=== PATIENT | male | born 1980 | race Two or more races ===

== ENCOUNTER 2016-04-02 00:51 | Inpatient (IN) | payer SELFPAY ==
[~2016-04-02] VITALS: Ht 167.6 cm; Wt 46.8 kg
[2016-04-02] VITALS (9 sets, daily range): BP systolic 85–101; BP diastolic 50–66; PULSE 84–106; RESP 12–16; TEMP 97–98.2; O2SAT 97–100
[2016-04-02] MEDS ORDERED: MORPHINE SULFATE 4 MG/ML INJ IV PRN (01:45)
[2016-04-02] MEDS ORDERED: SODIUM CHLOR 0.9% 1000 ML INJ 1,000 ML IV SCH (01:45)
[2016-04-02] MEDS: ONDANSETRON HCL 4 MG/2 ML VIAL IV PUSH PRN (02:38)
[2016-04-02] MEDS ORDERED: SODIUM CHLORID 0.9% 500 ML INJ 500 ML IV ONE (04:00)
[2016-04-02] MEDS ORDERED: IBUPROFEN 600 MG TAB PO PRN (08:15)
[2016-04-02] MEDS ORDERED: Post-op Orders (for Pharmacy) MISC XX ONE (08:15)
[2016-04-02] MEDS ORDERED: HYDROmorphone HCL PF 1 MG/ML VIAL IV PRN (08:15)
[2016-04-02] MEDS ORDERED: NALOXONE HCL 0.4 MG/ML AMP IV PRN (08:15)
[2016-04-02] MEDS ORDERED: ACETAMINOPHEN 325 MG TAB PO PRN (09:00)
[2016-04-02] MEDS ORDERED: diphenhydrAMINE HCL 50 MG/ML VIAL IV PRN (09:00)
[2016-04-02] MEDS ORDERED: PCA - TOTAL MG MORPHINE DELIVERED PER SHIFT SCH (09:00)
[2016-04-02] MEDS ORDERED: IBUPROFEN SUSP 100 MG/5 ML 120 ML BOTTLE PO PRN (09:00)
[2016-04-02] MEDS ORDERED: IBUPROFEN SUSP 100 MG/5 ML UDC PO PRN (09:02)
[2016-04-02] MEDS: SODIUM CHLORIDE 0.9% FLUSH 5 ML FLUSH IVF SCH ×2 (09:28→21:00)
[2016-04-02] MEDS: D5-NS + KCL 20 MEQ INJ 1,000 ML IV SCH ×2 (09:28→23:02)
[2016-04-02 10:30] LABS: HEMATOCRIT 29.4 % (39.0-51.0); HEMO FLAGS AUTO DIFF; MEAN CELL VOLUME 84.8 FL (80.0-100.0); MEAN CORPUSCULAR HEMOGLOBIN 29.5 PG (27.0-34.0); MEAN CORPUSCULAR HGB CONC 34.8 % (32.0-36.0); PLATELET COUNT 446 TH/MM3 (150-450); RED BLOOD COUNT 3.47 MIL/MM3 (4.50-5.90); RED CELL DISTRIBUTION WIDTH 14.3 % (11.6-17.2); WHITE BLOOD COUNT 39.2 TH/MM3 (4.0-11.0)
--- NOTE | 2016-04-02 10:30 | PD.CONS ---
[facility] By Reason for Consult medical management Primary Care Physician No Primary Care Physician Diagnoses: History of Present Illness patient is a 35 y/o mael with no significant past medical history who was admitted to the hospital because of facial mass. patient is czech-speaking . he says that he's had this right facial mass since 2015. he's complaining of moderate pain to the right face. no fever or chills. he's lost about thirteen pounds recently.he denies any other complaints. Review of Systems Constitutional: COMPLAINS OF: Weight loss, DENIES: Fever, Chills, Night Sweats Eyes: DENIES: Blurred vision, Diplopia, Vision loss, Double Vision Ears, nose, mouth, throat: DENIES: Tinnitus, Vertigo, Throat pain, Epistaxis Respiratory: DENIES: Apneas, Cough, Snoring, Wheezing, Hemoptysis, Sputum production, Shortness of breath Cardiovascular: DENIES: Chest pain, Palpitations, Syncope, Dyspnea on Exertion , PND, Lower Extremity Edema, Orthopnea, Claudication Gastrointestinal: DENIES: Abdominal pain, Black stools, Bloody stools, Constipation, Diarrhea, Nausea, Vomiting, Difficulty Swallowing, Anorexia Genitourinary: DENIES: Urinary frequency, Urgency, Hematuria, Dysuria Musculoskeletal: DENIES: Joint pain, Muscle aches, Stiffness, Joint Swelling Integumentary: DENIES: Rash Neurologic: DENIES: Abnormal gait, Headache, Localized weakness, Paresthesias, Seizures, Speech Problems, Tremor, Poor Balance Psychiatric: DENIES: Anxiety, Confusion, Mood changes, Depression, Hallucinations, Agitation, Suicidal Ideation, Homicidal Ideation, Delusions Other pain to the right face. Past Family Social History Allergies: Coded Allergies: No Known Allergies (Unverified , 04/02/16) Past Medical History not significant. Past Surgical History none reported. Reported Medications none reported. Active Ordered Medications Current Medications Sodium Chloride (NS 1000 ml Inj) 1,000 ml @ 75 mls/hr [id number] IV Last administered on 04/02/16 02:38; Start 04/02/16 at 01:45; Stop 04/02/16 at 08:25 ; Status DC Morphine Sulfate (Morphine Inj) 2 mg Q2H PRN IV BREAKTHROUGH PAIN Last administered on 04/02/16 02:38; Start 04/02/16 at 01:45 Ondansetron HCl 4 mg 4 mg Q6H PRN IV PUSH NAUSEA Last administered on 02:38; Start 04/02/16 at 01:45 Sodium Chloride 500 ml @ 0 mls/hr BOLUS ONCE IV Last administered on 04:00; Start 04/02/16 at 04:00; Stop 04/02/16 at 04:01; Status DC Potassium Chloride/Dextrose/ Sod Cl (D5-NS + KCl 20 Meq Inj) 1,000 ml @ 75 mls/ hr [id number] IV Last administered on 04/02/16 09:28; Start 04/02/16 at 09:00 IV Flush (NS Flush) 2 ml UNSCH PRN IVF FLUSH AFTER USING IV ACCESS; Start 04/02 at 08:15 IV Flush (NS Flush) 2 ml BID IVF Last administered on 04/02/16 09:28; Start at 09:00 Acetaminophen (Tylenol) 650 mg Q4H PRN PO PAIN SCALE 1 TO 10; Start 04/02/16 at 09:00; Stop 04/02/16 at 09:00; Status DC Ibuprofen (Motrin) 600 mg Q4H PRN PO PAIN SCALE 1 TO 5; Start 04/02/16 at 08:15 ; Stop 04/02/16 at 08:49; Status DC Hydromorphone HCl (Dilaudid Pf Inj) 0.5 mg Q2H PRN IV PAIN SCALE 6 TO 10; Start 04/02/16 at 08:15; Stop 04/02/16 at 08:49; Status DC Diphenhydramine HCl (Benadryl) 25 mg Q6H PRN PO ITCHING; Start 04/02/16 at 09: 00 Miscellaneous Information (Post-op Orders (for Pharmacy)) STAT ONCE XX ; Start 04/02/16 at 08:15; Stop 04/02/16 at 08:16; Status UNV Miscellaneous Information 1 ONCE ONCE XX ; Start 04/02/16 at 08:15; Stop at 08:16; Status UNV Enoxaparin Sodium (Lovenox Inj) 30 mg Q24H SQ ; Start 04/02/16 at 08:15; Status UNV Naloxone HCl (Narcan Inj) 0.4 mg UNSCH PRN IV RESPIRATORY RATE LESS THAN 10; Start 04/02/16 at 08:15; Stop 04/02/16 at 08:49; Status DC Diphenhydramine HCl (Benadryl Inj) 25 mg Q6H PRN IV ITCHING; Start 04/02/16 at 09:00; Stop 04/02/16 at 09:00; Status DC [employer] Dosage Infused (Pha) 1 Q8HR .XX ; Start 04/02/16 at 09:00; Stop 04/02/16 at 09:00; Status DC Acetaminophen/ Hydrocodone Bitart (Hycet 325-7.5 Mg Liq) 15 ml Q4H PRN PO PAIN SCALE 6-10; Start 04/02/16 at 09:00 Ibuprofen (Motrin Liq) 600 mg Q4H PRN PO PAIN SCALE 1-5; Start 04/02/16 at 09: 00; Stop 04/02/16 at 09:02; Status DC Ibuprofen (Motrin Liq) 600 mg Q4H PRN PO PAIN SCALE 1-5; Start 04/02/16 at 09: 02 Social History no smoking or drinking. Physical Exam Vital Signs Vital Signs Date Time Temp Pulse Resp B/P Pulse Ox O2 Delivery O2 Flow Rate FiO2 04/02/16 08:00 97.2 88 16 101/58 100 04/02/16 06:00 86 90/59 04/02/16 04:46 84 91/54 04/02/16 03:41 97.8 98 14 86/56 100 04/02/16 01:31 97.0 106 12 98/66 99 Physical Exam GENERAL: cachectic and ill looking-however in no acute distress HEAD:mass noted on the right face with tissue necrosis and discharge from the site EYES: Pupils equal round and reactive. Extraocular motions intact. No scleral icterus. No injection or drainage. ENT: Nose without bleeding, purulent drainage or septal hematoma. Throat without erythema, tonsillar hypertrophy or exudate. Uvula midline. Airway patent. NECK: Trachea midline. No JVD or lymphadenopathy. Supple, nontender, no meningeal signs. CARDIOVASCULAR: Regular rate and rhythm without murmurs, gallops, or rubs. RESPIRATORY: Clear to auscultation. Breath sounds equal bilaterally. No wheezes , rales, or rhonchi. GASTROINTESTINAL: Abdomen soft, non-tender, nondistended. No hepato-splenomegaly , or palpable masses. No guarding. MUSCULOSKELETAL: Extremities without clubbing, cyanosis, or edema. No joint tenderness, effusion, or edema noted. No calf tenderness. Negative Homans sign bilaterally. NEUROLOGICAL: Awake and alert. Cranial nerves II through XII intact. Motor and sensory grossly within normal limits. Five out of 5 muscle strength in all muscle groups. Normal speech. Assessment and Plan Assessment and Plan A/P -right facial mass continue with pain control- surgery following- CT of the neck and brain pending - plan for biopsy of the mass- PEG placement- radiation oncology consulted. -severe malnutrition- plan for PEG placement- will consult exercise rider. thank you for the consult. Discussed Condition With the patient and RN. Meredith Acosta MD Apr 02, 2016 10:30
[2016-04-02 10:50] LABS: BICARBONATE 23.1 MEQ/L (21.0-32.0); POTASSIUM 4.2 MEQ/L (3.5-5.1); TOTAL BILIRUBIN ADULT 0.6 MG/DL (0.2-1.0)
[2016-04-02 10:55] LABS: CALCIUM-PROTEIN CORRECTED 13.9 MG/DL (8.5-10.1)
[2016-04-02 11:10] LABS: EOSINOPHILS 2 % (0-4); POLYS (SEG NEUTROPHILS) 88 % (16-70); WBC DIFF SAMPLE 100
[2016-04-02 11:11] LABS: BANDS 4 % (0-6); MYELOCYTES 1 % (0-0); NEUTROPHIL # MANUAL DIFF 36.5 TH/MM3 (1.8-7.7); PLATELET ESTIMATE SMEAR NORMAL (NORMAL); PLATELET MORPHOLOGY NORMAL (NORMAL); SCAN/DIFF FINAL DIFF MANUAL
--- NOTE | 2016-04-02 13:04 | RADRPT ---
EXAM DATE/TIME: 04/02/2016 11:54 [facility] COMPARISON: No previous studies available for comparison. INDICATIONS : Right sided facial mass. RADIATION DOSE: 52.68 CTDIvol (mGy) MEDICAL HISTORY : None SURGICAL HISTORY : None. ENCOUNTER: Initial ACUITY: 1 day PAIN SCALE: 8/10 LOCATION: Right cranial TECHNIQUE: Multiple contiguous axial images were obtained of the head. Using automated exposure control and adj ustment of the mA and/or kV according to patient size, radiation dose was kept as low as reasonably a chievable to obtain optimal diagnostic quality images. FINDINGS: CEREBRUM: The ventricles are normal for age. No evidence of midline shift, mass lesion, hemorrhage or acute in farction. No extra-axial fluid collections are seen. POSTERIOR FOSSA: The cerebellum and brainstem are intact. The 4th ventricle is midline. The cerebellopontine angle i s unremarkable. EXTRACRANIAL: The visualized portion of the orbits is intact. However there is a large soft tissue mass with scatte red areas of calcifications along the right side of the face. This will be further evaluated on the C T soft tissue neck. SKULL: The calvaria is intact. No evidence of skull fracture. CONCLUSION: 1. Unremarkable CT scan of the brain 2. Large abnormal soft tissue mass with calcifications along the right side of the face. Niall Corrales MD on April 02, 2016 at 13:01 Board Certified Radiologist. This report was verified electronically.
--- NOTE | 2016-04-02 13:34 | RADRPT ---
EXAM DATE/TIME: 04/02/2016 11:54 [place] Corrected on: April 02, 2016; [facility] COMPARISON: No previous studies available for comparison. INDICATIONS : Right facial mass. RADIATION DOSE: 24.60 CTDIvol (mGy) MEDICAL HISTORY : None SURGICAL HISTORY : None. ENCOUNTER: Initial ACUITY: 1 day PAIN SCORE: 8/10 LOCATION: Right cranial TECHNIQUE: Volumetric scanning of the neck was performed. Using automated exposure control and adjustment of th e mA and/or kV according to patient size, radiation dose was kept as low as reasonably achievable to obtain optimal diagnostic quality images. The lack of IV contrast limits the diagnosis for certain or ness pathology. FINDINGS: There is a large right-sided abnormal soft tissue mass with some scattered amorphous calcifications n oted throughout the mass. The mass measures at least 14.3 x 5.9 x 7.5 cm. The mass extends along the right side of the face from the level of the zygomatic arch which remains grossly intact down to the lower neck on the right side. The mass is causing complete destruction involving the right mandible. The right maxilla appears to be grossly intact.. There is also subcutaneous air seen within the mass. This most likely related to the oral cavity. No definite loculated fluid collections are demonstrate d. The thyroid gland is unremarkable. The mass is causing pressure along the posterior lateral wall o f the right maxillary sinus. There is some chronic sinus disease in the right maxillary sinus. Howeve r the mass does not appear to have extended into the right maxillary sinus. It appears the mass exten ds into the region of the oral cavity with diffuse enlargement of the right tonsillar pillar. The mas s may be involving the floor the mouth. No involvement of the hyoid bone is demonstrated. No involvem ent of the thyroid cartilage is demonstrated. No definite cervical adenopathy is demonstrated. The ma ss appears to invade the right sternocleidomastoid muscle. CONCLUSION: Very large heterogeneous soft tissue mass along the right side of the face with gross destruction inv olving most of the right mandible. The mass contains amorphous calcifications and appears to involve the right sternocleidomastoid muscle. The mass appears to extend into the oral cavity with diffuse en largement of the right tonsillar pillar. Neoplastic disease in the primary consideration. Niall Corrales MD on April 02, 2016 at 13:24 Board Certified Radiologist. This report was verified electronically. Niall Corrales MD on April 02, 2016 at 13:37 Board Certified Radiologist. This report was verified electronically.
--- NOTE | 2016-04-02 13:37 | RADRPT ---
EXAM DATE/TIME: 04/02/2016 11:54 [facility] COMPARISON: CT SOFT TISSUE NECK W/O CONTRAST, April 02, 2016, 11:54. CT BRAIN W/O CONTRAST, April 02, 2016, 11:54. INDICATIONS : Right faical mass. ; Reconstructed from previous dataset MEDICAL HISTORY : None SURGICAL HISTORY : None. ENCOUNTER: Initial ACUITY: 1 day PAIN SCALE: 9/10 LOCATION: Right facial TECHNIQUE: 3D reconstructions of the face were performed. FINDINGS: As noted on the CT soft tissue neck there is a large soft tissue mass with amorphous calcifications c ausing complete destruction of most of the right mandible. The mass is overall appearance was fully d escribed on the CT soft tissue neck. CONCLUSION: 3-D reconstructive images demonstrating destruction involving most the right side of the mandible. Niall Corrales MD on April 02, 2016 at 13:33 Board Certified Radiologist. This report was verified electronically.
[2016-04-02] MEDS: ACETAMINOPHEN 325MG/HYDROcodone 7.5MG/15ML UDC PO PRN (23:07)
[2016-04-03] VITALS (7 sets, daily range): BP systolic 94–106; BP diastolic 57–68; PULSE 89–106; RESP 16–18; TEMP 96–98.3; O2SAT 97–100
[2016-04-03] MEDS: SODIUM CHLORID 0.9% 500 ML IV SCH ×2 (03:15→19:55)
--- NOTE | 2016-04-03 08:28 | MB ---
cc: BINH MERCADO D.D.S. DATE OF CONSULTATION 04/03/2016 DATE OF 1980 REASON FOR CONSULTATION I was asked to evaluate a 35-year-old gentleman who does not speak [place] from [facility] who has, according to the notes, no significant past medical history. He was admitted to the hospital because of a large facial mass. He says he has had it since June of 2015. The mass appears to be malignant due to its extensive destruction. It is coming through the skin; it is large, extending into the floor of the mouth as well. PHYSICAL EXAMINATION GENERAL: On evaluation of the patient, he is cachectic due to lack of nutrition. HEAD AND NECK: As far as his examination goes, for his head and neck itself, this mass extends from the right condylar neck region all the way down past the midline, over and extending down the neck into the areas past Zone in the neck and down towards the base, towards the clavicle. Intraorally hard to examine. The patient has dentition but his lower ones are involved in the mass. It extends into the floor of the mouth and the base of his tongue, extends past the posterior pharynx, hard to determine how far it goes. PLAN FOR THIS GENTLEMAN Obviously he has got some electrolyte imbalances as well which we are trying to get stabilized for him. He is severely dehydrated. His creatinine is extremely high. Calcium and some other things are off. He going to start to be managed today. The patient is planned to go to the OR by Dr. Oseguera today for placement of a G-tube for him. He is going to biopsy a piece of the mass here as well and try to determine a game plan. Dr. Beaulieu is going to possibly start him; he is going to require radiation therapy prior to anything due to the large size of this mass and then hopefully a surgical plan can be devised for removal of the remaining mass once he is able to shrink it down somewhat to make it amenable to resection. I will continue to follow this patient and help in the maintenance of his care. Thank you, Dr. Oseguera, for including me in his care. If there is anything else I can do, please let me know. SRI Pittman /7:17 AM /8:15 AM
--- NOTE | 2016-04-03 08:37 | HHI.PR ---
Subjective Remarks ill looking but in no distress. afebrile. pain to the right face is fairly controlled. d/w the RN and no acute issues over night. Objective Vitals Vital Signs Date Time Temp Pulse Resp B/P Pulse Ox O2 Delivery O2 Flow Rate FiO2 04/03/16 04:00 96.7 89 18 95/57 99 04/03/16 00:00 97.7 97 16 94/60 100 04/02/16 23:10 96 16 100/58 04/02/16 20:00 98.2 101 14 96/65 97 04/02/16 16:00 97.4 91 16 89/56 100 04/02/16 12:00 85/50 I/O 04/02/16 04/02/16 04/02/16 04/03/16 04/03/16 04/03/16 07:00 15:00 23:00 07:00 15:00 23:00 Intake Total 640 ml 480 ml 1655 ml 680 ml Output Total 400 ml Balance 640 ml 480 ml 1655 ml 280 ml Intake Oral 0 ml 480 ml 50 ml IV Total 640 ml 1655 ml 630 ml Output Urine Total 400 ml # Voids 0 1 1 # Bowel Movements 1 Result Diagram: 04/02/16 1006 04/02/16 1006 Imaging Last Impressions Neck CT 04/02/16 0000 Signed Impressions: Service Date/Time: Saturday, April 02, 2016 11:54 - CONCLUSION: Very large heterogeneous soft tissue mass along the right side of the face with gross destruction involving most of the right mandible. The mass contains amorphous calcifications and appears to involve the right sternocleidomastoid muscle. The mass appears to extend into the oral cavity with diffuse enlargement of the right tonsillar pillar. Neoplastic disease in the primary consideration. Niall Corrales MD Multiplanar Reconstruction 04/02/16 0000 Signed Impressions: Service Date/Time: Saturday, April 02, 2016 11:54 - CONCLUSION: 3-D reconstructive images demonstrating destruction involving most the right side of the mandible. Niall Corrales MD Head CT 04/02/16 0000 Signed Impressions: Service Date/Time: Saturday, April 02, 2016 11:54 - CONCLUSION: 1. Unremarkable CT scan of the brain 2. Large abnormal soft tissue mass with calcifications along the right side of the face. Niall Corrales MD A/P Assessment and Plan A/P - right facial mass CT of the face with very large heterogeneous soft tissue mass along the right side of the face with gross destruction involving most of the right mandible. The mass contains amorphous calcifications and appears to involve the right sternocleidomastoid muscle. The mass appears to extend into the oral cavity with diffuse enlargement of the right tonsillar pillar. Neoplastic disease in the primary consideration. continue with pain control- plan for biopsy of the mass today- radiation and medical oncology consulted. -renal insufficiency with unknown duration- continue IV fluid- monitor renal function and electrolytes- will consult nephrology. - hypercalcemia likely due to bone destruction due to the mass/ dehydration continue with IV fluid- will monitor the level closely -hyponatremia; continue IV fluid- will monitor -leukocytosis- no evidence of active infection at this time- afebrile- will monitor temps and check the CBC in am. -DVT prophylaxis- post-op per surgery d/w the patient, family,RN and . Meredith Acosta MD Apr 03, 2016 08:37
[2016-04-03] MEDS: SODIUM CHLORIDE 0.9% FLUSH 5 ML FLUSH IVF SCH ×2 (09:00→21:10)
[2016-04-03 09:37] LABS: AUTOMATED NEUTROPHIL # 26.8 TH/MM3 (1.8-7.7); BASOPHIL % 0.2 % (0.0-2.0); EOSINOPHIL # 0.3 TH/MM3 (0-0.4); EOSINOPHIL % 1.2 % (0.0-4.0); HEMO FLAGS DIFF FINAL; LYMPH % 2.8 % (9.0-44.0); LYMPHOCYTE # 0.8 TH/MM3 (1.0-4.8); MEAN CELL VOLUME 85.7 FL (80.0-100.0); MEAN CORPUSCULAR HEMOGLOBIN 29.8 PG (27.0-34.0); MEAN CORPUSCULAR HGB CONC 34.8 % (32.0-36.0); MONO % 4.8 % (0.0-8.0); PLATELET COUNT 399 TH/MM3 (150-450); RED BLOOD COUNT 2.66 MIL/MM3 (4.50-5.90); RED CELL DISTRIBUTION WIDTH 14.4 % (11.6-17.2); WHITE BLOOD COUNT 29.4 TH/MM3 (4.0-11.0)
[2016-04-03 09:46] LABS: HEMATOCRIT 22.8 % (39.0-51.0)
[2016-04-03 10:08] LABS: BICARBONATE 24.6 MEQ/L (21.0-32.0); POTASSIUM 3.3 MEQ/L (3.5-5.1)
[2016-04-03] MEDS ORDERED: LACTATED RINGER'S 1000 ML INJ 1,000 ML IV ONE (10:46)
[2016-04-03] MEDS ORDERED: PROPOFOL 200 MG/20 ML AMP IV ONE (10:46)
[2016-04-03] MEDS ORDERED: ONDANSETRON HCL 4 MG/2 ML VIAL IV PUSH ONE (10:46)
[2016-04-03] MEDS ORDERED: PHENYLEPH/NS 1000 MCG/10 ML SYR IV ONE (10:46)
--- NOTE | 2016-04-03 11:49 | HHI.PR ---
Subjective Subjective Notes no problems overnight except some mild oozing from mass. more awake and alert today. Objective Vitals/I&O Vital Signs Date Time Temp Pulse Resp B/P Pulse Ox O2 Delivery O2 Flow Rate FiO2 04/03/16 08:00 96.0 100 18 96/61 100 Labs Laboratory Tests Test 04/03/16 07:59 White Blood Count 29.4 Red Blood Count 2.66 Hemoglobin 7.9 Hematocrit 22.8 Mean Corpuscular Volume 85.7 Mean Corpuscular Hemoglobin 29.8 Mean Corpuscular Hemoglobin 34.8 Concent Red Cell Distribution Width 14.4 Platelet Count 399 Mean Platelet Volume 6.2 Neutrophils (%) (Auto) 91.0 Lymphocytes (%) (Auto) 2.8 Monocytes (%) (Auto) 4.8 Eosinophils (%) (Auto) 1.2 Basophils (%) (Auto) 0.2 Neutrophils # (Auto) 26.8 Lymphocytes # (Auto) 0.8 Monocytes # (Auto) 1.4 Eosinophils # (Auto) 0.3 Basophils # (Auto) 0.0 CBC Comment DIFF FINAL Differential Comment Sodium Level 131 Potassium Level 3.3 Chloride Level 97 Carbon Dioxide Level 24.6 Anion Gap 9 Blood Urea Nitrogen 53 Creatinine 2.53 Estimat Glomerular Filtration 29 Rate Random Glucose 87 Calcium Level 13.6 Protein Corrected Calcium Total Protein 6.0 Cardiovascular: Regular Lungs: Clear Abdomen: Non-distended, Non-tender A/P Assessment and Plan large facial malignancy, dehydration, malnutrition. to OR today for PEG, biopsy of mass, central line. DW Soni Nails Alvarez. Juan Oseguera MD Apr 03, 2016 11:49
[2016-04-03] MEDS: D5-NS + KCL 20 MEQ INJ 1,000 ML IV SCH ×2 (11:51→21:45)
[2016-04-03] MEDS ORDERED: HEPARIN SODIUM - IV 10,000 UNITS/10 ML VIAL ONE (13:46)
[2016-04-03] MEDS ORDERED: BUPIVACAINE/EPINEPHRINE 0.25% PF 10 ML VIAL ONE (13:46)
[2016-04-03] MEDS ORDERED: HEPARIN SODIUM - SQ 10,000 UNITS/ML VIAL ONE (13:46)
[2016-04-03] MEDS ORDERED: CHLORHEXIDINE GLUCONATE 0.12% 30 ML CUP ONE (13:46)
[2016-04-03] MEDS ORDERED: ceFAZolin INJ 1,000 MG VIAL IV ONE (14:43)
--- NOTE | 2016-04-03 15:27 | PD.PROCEDR ---
GI Procedure REFERRING PHYSICIAN Dr. 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 Mtz and informed consent was obtained. Anesthesia sedated him with Diprivan. He was placed in the left lateral decubitus position. EGD: The Pentax videoscope was introduced through the oropharynx and advanced to the second portion of the duodenum under direct visualization. Retroflexion was performed in the stomach. FINDINGS: The esophagus this was unremarkable and within normal limits The stomach this too appeared to be unremarkable and within normal limits Following the evaluation of the stomach and the duodenum the stomach was insufflated with air and the area of PEG placement was identified through indentation and transillumination the area was prepped and draped in usual fashion 5 cc of lidocaine were injected locally a small incision was made then an Angiocath was passed into the stomach through which a guidewire was passed this was retrieved with the scope into that a PEG tube was attached and pulled into place and thereafter secured in usual fashion The patient tolerated procedure well and there are no immediate complications The duodenum this was normal ESTIMATED BLOOD LOSS: None SPECIMENS REMOVED: None COMPLICATIONS: None IMPRESSION: Normal EGD Successful PEG placement PLAN: PLAN: 1. May use PEG tube for medications today 2. May start feeding tomorrow 3. May obtain nutritional consult for tube feeding 4. Flush tube with 50 cc of water every 4-6 hours 5. Always flush tube after feedings 6. Apply abdominal binder as necessary 7. Clamp G-tube after use and flush. Ambrocio Johnson MD Apr 03, 2016 15:27
--- NOTE | 2016-04-03 15:32 | PD.CONS ---
HPI History of Present Illness This is a 35 year old male who is admitted for evaluation and treatment of right facial mass the patient is Greenlandic-speaking and so there is a language barrier apparently he's had this mass since June 2015 and we are asked to evaluate for PEG placement. FORMERLY [facility] Past Medical History None Past Surgical History None Coded Allergies: No Known Allergies (Unverified , 04/02/16) Medications Current Medications Sodium Chloride (NS 1000 ml Inj) 1,000 ml @ 75 mls/hr [id number] IV Last administered on 04/02/16 02:38; Start 04/02/16 at 01:45; Stop 04/02/16 at 08:25 ; Status DC Morphine Sulfate (Morphine Inj) 2 mg Q2H PRN IV BREAKTHROUGH PAIN Last administered on 04/02/16 02:38; Start 04/02/16 at 01:45 Ondansetron HCl 4 mg 4 mg Q6H PRN IV PUSH NAUSEA Last administered on 02:38; Start 04/02/16 at 01:45 Sodium Chloride 500 ml @ 0 mls/hr BOLUS ONCE IV Last administered on 04:00; Start 04/02/16 at 04:00; Stop 04/02/16 at 04:01; Status DC Potassium Chloride/Dextrose/ Sod Cl (D5-NS + KCl 20 Meq Inj) 1,000 ml @ 75 mls/ hr [id number] IV Last administered on 04/03/16 11:51; Start 04/02/16 at 09:00 IV Flush (NS Flush) 2 ml UNSCH PRN IVF FLUSH AFTER USING IV ACCESS; Start 04/02 at 08:15 IV Flush (NS Flush) 2 ml BID IVF Last administered on 04/02/16 09:28; Start at 09:00 Acetaminophen (Tylenol) 650 mg Q4H PRN PO PAIN SCALE 1 TO 10; Start 04/02/16 at 09:00; Stop 04/02/16 at 09:00; Status DC Ibuprofen (Motrin) 600 mg Q4H PRN PO PAIN SCALE 1 TO 5; Start 04/02/16 at 08:15 ; Stop 04/02/16 at 08:49; Status DC Hydromorphone HCl (Dilaudid Pf Inj) 0.5 mg Q2H PRN IV PAIN SCALE 6 TO 10; Start 04/02/16 at 08:15; Stop 04/02/16 at 08:49; Status DC Diphenhydramine HCl (Benadryl) 25 mg Q6H PRN PO ITCHING; Start 04/02/16 at 09: 00 Miscellaneous Information (Post-op Orders (for Pharmacy)) STAT ONCE XX ; Start 04/02/16 at 08:15; Stop 04/03/16 at 06:06; Status DC Miscellaneous Information 1 ONCE ONCE XX ; Start 04/02/16 at 08:15; Stop at 06:06; Status DC Enoxaparin Sodium (Lovenox Inj) 30 mg Q24H SQ ; Start 04/02/16 at 08:15; Status UNV Naloxone HCl (Narcan Inj) 0.4 mg UNSCH PRN IV RESPIRATORY RATE LESS THAN 10; Start 04/02/16 at 08:15; Stop 04/02/16 at 08:49; Status DC Diphenhydramine HCl (Benadryl Inj) 25 mg Q6H PRN IV ITCHING; Start 04/02/16 at 09:00; Stop 04/02/16 at 09:00; Status DC HISTOTECHNOLOGIST Dosage Infused (Pha) 1 Q8HR .XX ; Start 04/02/16 at 09:00; Stop 04/02/16 at 09:00; Status DC Acetaminophen/ Hydrocodone Bitart (Hycet 325-7.5 Mg Liq) 15 ml Q4H PRN PO PAIN SCALE 6-10 Last administered on 04/02/16t 23:07; Start 04/02/16 at 09:00 Ibuprofen (Motrin Liq) 600 mg Q4H PRN PO PAIN SCALE 1-5; Start 04/02/16 at 09: 00; Stop 04/02/16 at 09:02; Status DC Ibuprofen 600 mg 600 mg Q4H PRN PO PAIN SCALE 1-5; Start 04/02/16 at 09:02 Sodium Chloride (NS 500 ml Inj) 500 ml @ 30 mls/hr [id number] IV ; Start 04/03/16 at 03:15; Stop 04/04/16 at 03:14 Bupivacaine HCl/ Epinephrine Bitart (Sensorcaine-Epinephrine Pf 0.25% Inj) 20 ml STK-MED ONCE .ROUTE ; Start 04/03/16 at 13:46; Stop 04/03/16 at 13:47; Status DC Chlorhexidine Gluconate (Peridex 0.12% Liq) 60 ml STK-MED ONCE .ROUTE ; Start at 13:46; Stop 04/03/16 at 13:47; Status DC Heparin Sodium (Porcine) (Heparin Inj) 10,000 units STK-MED ONCE .ROUTE ; Start 04/03/16 at 13:46; Stop 04/03/16 at 13:47; Status DC Heparin Sodium (Porcine) (Heparin Inj) 10,000 units STK-MED ONCE .ROUTE ; Start 04/03/16 at 13:46; Stop 04/03/16 at 13:47; Status DC Cefazolin Sodium (Ancef Inj) 1,000 mg STK-MED ONCE IV Last administered on 04/03t 14:43; Start 04/03/16 at 14:43; Stop 04/03/16 at 15:03; Status DC Family History Unavailable Social History Unavailable Review of Systems ROS Unable to obtain due to language barrier but apparently unremarkable GI Exam Vitals I&O Vital Signs Date Time Temp Pulse Resp B/P Pulse Ox O2 Delivery O2 Flow Rate FiO2 04/03/16 12:00 96.5 94 18 106/68 100 04/03/16 08:00 96.0 100 18 96/61 100 04/03/16 04:00 96.7 89 18 95/57 99 04/03/16 00:00 97.7 97 16 94/60 100 04/02/16 23:10 96 16 100/58 04/02/16 20:00 98.2 101 14 96/65 97 04/02/16 16:00 97.4 91 16 89/56 100 I/O 04/02/16 04/02/16 04/02/16 04/03/16 04/03/16 04/03/16 07:00 15:00 23:00 07:00 15:00 23:00 Intake Total 640 ml 480 ml 1655 ml 680 ml 0 ml Output Total 400 ml 750 ml Balance 640 ml 480 ml 1655 ml 280 ml -750 ml Intake Oral 0 ml 480 ml 50 ml 0 ml IV Total 640 ml 1655 ml 630 ml Output Urine Total 400 ml 750 ml # Voids 0 1 1 # Bowel Movements 1 Imaging Last Impressions Neck CT 04/02/16 0000 Signed Impressions: Service Date/Time: Saturday, April 02, 2016 11:54 - CONCLUSION: Very large heterogeneous soft tissue mass along the right side of the face with gross destruction involving most of the right mandible. The mass contains amorphous calcifications and appears to involve the right sternocleidomastoid muscle. The mass appears to extend into the oral cavity with diffuse enlargement of the right tonsillar pillar. Neoplastic disease in the primary consideration. Niall Corrales MD Multiplanar Reconstruction 04/02/16 0000 Signed Impressions: Service Date/Time: Saturday, April 02, 2016 11:54 - CONCLUSION: 3-D reconstructive images demonstrating destruction involving most the right side of the mandible. Niall Corrales MD Head CT 04/02/16 0000 Signed Impressions: Service Date/Time: Saturday, April 02, 2016 11:54 - CONCLUSION: 1. Unremarkable CT scan of the brain 2. Large abnormal soft tissue mass with calcifications along the right side of the face. Niall Corrales MD Laboratory Test 04/03/16 07:59 White Blood Count 29.4 TH/MM3 Red Blood Count 2.66 MIL/MM3 Hemoglobin 7.9 GM/DL Hematocrit 22.8 % Mean Corpuscular Volume 85.7 FL Mean Corpuscular Hemoglobin 29.8 PG Mean Corpuscular Hemoglobin 34.8 % Concent Red Cell Distribution Width 14.4 % Platelet Count 399 TH/MM3 Mean Platelet Volume 6.2 FL Neutrophils (%) (Auto) 91.0 % Lymphocytes (%) (Auto) 2.8 % Monocytes (%) (Auto) 4.8 % Eosinophils (%) (Auto) 1.2 % Basophils (%) (Auto) 0.2 % Neutrophils # (Auto) 26.8 TH/MM3 Lymphocytes # (Auto) 0.8 TH/MM3 Monocytes # (Auto) 1.4 TH/MM3 Eosinophils # (Auto) 0.3 TH/MM3 Basophils # (Auto) 0.0 TH/MM3 CBC Comment DIFF FINAL Differential Comment Sodium Level 131 MEQ/L Potassium Level 3.3 MEQ/L Chloride Level 97 MEQ/L Carbon Dioxide Level 24.6 MEQ/L Anion Gap 9 MEQ/L Blood Urea Nitrogen 53 MG/DL Creatinine 2.53 MG/DL Estimat Glomerular Filtration 29 ML/MIN Rate Random Glucose 87 MG/DL Calcium Level 13.6 MG/DL Protein Corrected Calcium MG/DL Total Protein 6.0 GM/DL Physical Examination HEENT: normocephalic; large right sided facial mass that is oozing blood and has a strange smell to it; no jaundice. Throat with poor dentition and oral mass noted. NECK: Neck is supple CHEST: Chest is clear to auscultation and percussion. CARDIAC: Regular rate and rhythm with no murmur gallop or rubs. ABDOMEN: Soft, nondistended, nontender; no hepatosplenomegaly; bowel sounds are present in all four quadrants. EXTREMITIES: No clubbing, cyanosis, or edema. Assessment and Plan Plan Right facial mass with extension into the oral cavity Failure to thrive We will proceed with PEG tube placement Other recommendations as per primary service and as per hospital course Ambrocio Johnson MD Apr 03, 2016 15:32
[2016-04-03] MEDS ORDERED: LIDOCAINE 2%/EPINEPHrine 1:100,000 30ML MDV ONE (15:35)
[2016-04-03] MEDS ORDERED: LIDOCAINE 1%/EPINEPHrine 1:100,000 SOLN 50 ML VIAL ONE (15:35)
[2016-04-03] MEDS ORDERED: MICROFIBRILLAR COLLAGEN HEMOSTAT 1 GM PKT ONE (15:41)
[2016-04-03] MEDS ORDERED: DO NOT ADM ANY ANTICOAGULANT DRUGS XX PRN (16:28)
[2016-04-03] MEDS ORDERED: fentaNYL CITRATE 250 MCG/5 ML AMP ONE (16:34)
--- NOTE | 2016-04-03 16:53 | PD.CONS ---
HPI Service Nephrology Consult Requested By Dr. Jovel Reason for Consult Acute renal failure and dehydration Primary Care Physician No Primary Care Physician History of Present Illness Patient is a 35-year-old male who has a big mass on the right side of the face involving the cheek and mandible he has destructive lesion and the underwent the PEG tube placement, biopsy showed squamous cell cancer and she is dehydrated, cachectic, patient does not speak any Latvian, I was told by Dr. Oseguera that he is from the [facility]. Review of Systems Constitutional: COMPLAINS OF: Fatigue, Weight loss Gastrointestinal: COMPLAINS OF: Anorexia Musculoskeletal: COMPLAINS OF: Joint pain, Muscle aches, Stiffness Past Family Social History Allergies: Coded Allergies: No Known Allergies (Unverified , 04/02/16) Past Medical History Facial mass Past Surgical History Nothing significant Active Ordered Medications Current Medications Medications (Trade) Dose Ordered Sig/Sara Route Start Time Stop Time Status Last Admin (Morphine Inj) 2 mg Q2H PRN IV 04/02/16 01:45 04/02/16 02:38 Ondansetron HCl 4 mg 4 mg Q6H PRN IV PUSH 04/02/16 01:45 04/02/16 02:38 (D5-NS + KCl 20 Meq Inj) 1,000 ml @ 75 mls/hr [id number] IV 04/02/16 09:00 04/03/16 11:51 (NS Flush) 2 ml UNSCH PRN IVF 04/02/16 08:15 (NS Flush) 2 ml BID IVF 04/02/16 09:00 04/02/16 09:28 (Benadryl) 25 mg Q6H PRN PO 04/02/16 09:00 (Lovenox Inj) 30 mg Q24H SQ 04/02/16 08:15 UNV (Hycet 325-7.5 Mg Liq) 15 ml Q4H PRN PO 04/02/16 09:00 04/02/16 23:07 Ibuprofen 600 mg 600 mg Q4H PRN PO 04/02/16 09:02 (NS 500 ml Inj) 500 ml @ 30 mls/hr [id number] IV 04/03/16 03:15 04/04/16 03:14 Family History Noncontributory Social History Nonsmoker nondrinker Physical Exam Vital Signs Vital Signs Date Time Temp Pulse Resp B/P Pulse Ox O2 Delivery O2 Flow Rate FiO2 04/03/16 12:00 96.5 94 18 106/68 100 04/03/16 08:00 96.0 100 18 96/61 100 04/03/16 04:00 96.7 89 18 95/57 99 04/03/16 00:00 97.7 97 16 94/60 100 04/02/16 23:10 96 16 100/58 04/02/16 20:00 98.2 101 14 96/65 97 Physical Exam GENERAL: Malnourished, well-developed patient. SKIN: Warm and dry. HEAD: Large mass occupying the right side of the face EYES: No scleral icterus. No injection or drainage. NECK: Supple, trachea midline. No JVD or lymphadenopathy. CARDIOVASCULAR: Regular rate and rhythm without murmurs, gallops, or rubs. RESPIRATORY: Breath sounds equal bilaterally. No accessory muscle use. GASTROINTESTINAL: Abdomen soft, non-tender, nondistended. PEG tube in place EXTREMITIES: No cyanosis, or edema. Loss of muscle mass NEUROLOGICAL: Awake, alert Laboratory Laboratory Tests Test 04/03/16 07:59 White Blood Count 29.4 Red Blood Count 2.66 Hemoglobin 7.9 Hematocrit 22.8 Mean Corpuscular Volume 85.7 Mean Corpuscular Hemoglobin 29.8 Mean Corpuscular Hemoglobin 34.8 Concent Red Cell Distribution Width 14.4 Platelet Count 399 Mean Platelet Volume 6.2 Neutrophils (%) (Auto) 91.0 Lymphocytes (%) (Auto) 2.8 Monocytes (%) (Auto) 4.8 Eosinophils (%) (Auto) 1.2 Basophils (%) (Auto) 0.2 Neutrophils # (Auto) 26.8 Lymphocytes # (Auto) 0.8 Monocytes # (Auto) 1.4 Eosinophils # (Auto) 0.3 Basophils # (Auto) 0.0 CBC Comment DIFF FINAL Differential Comment Sodium Level 131 Potassium Level 3.3 Chloride Level 97 Carbon Dioxide Level 24.6 Anion Gap 9 Blood Urea Nitrogen 53 Creatinine 2.53 Estimat Glomerular Filtration 29 Rate Random Glucose 87 Calcium Level 13.6 Protein Corrected Calcium Total Protein 6.0 Result Diagram: 04/03/16 0759 04/03/16 0759 Imaging Last Impressions Neck CT 04/02/16 0000 Signed Impressions: Service Date/Time: Saturday, April 02, 2016 11:54 - CONCLUSION: Very large heterogeneous soft tissue mass along the right side of the face with gross destruction involving most of the right mandible. The mass contains amorphous calcifications and appears to involve the right sternocleidomastoid muscle. The mass appears to extend into the oral cavity with diffuse enlargement of the right tonsillar pillar. Neoplastic disease in the primary consideration. Niall Corrales MD Multiplanar Reconstruction 04/02/16 0000 Signed Impressions: Service Date/Time: Saturday, April 02, 2016 11:54 - CONCLUSION: 3-D reconstructive images demonstrating destruction involving most the right side of the mandible. Niall Corrales MD Head CT 04/02/16 0000 Signed Impressions: Service Date/Time: Saturday, April 02, 2016 11:54 - CONCLUSION: 1. Unremarkable CT scan of the brain 2. Large abnormal soft tissue mass with calcifications along the right side of the face. 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
--- NOTE | 2016-04-03 17:09 | RADRPT ---
EXAM DATE/TIME: 04/03/2016 16:42 [place] COMPARISON: No previous studies available for comparison. INDICATIONS : Evaluate central line placement. MEDICAL HISTORY : None. SURGICAL HISTORY : None. ENCOUNTER: Initial ACUITY: 1 day PAIN SCORE: Non-responsive. LOCATION: Bilateral chest FINDINGS: A single view of the chest demonstrates the lungs to be symmetrically aerated without evidence of mas s, infiltrate or effusion. The cardiomediastinal contours are unremarkable. Osseous structures are intact. There is placement of left subclavian venous catheter terminating in the superior vena cava w ithout complication no pneumothorax. CONCLUSION: Left subclavian venous catheter positioned in the superior vena cava with no pneumothorax Yaakov Montaño MD on April 03, 2016 at 17:07 Board Certified Radiologist. This report was verified electronically.
[2016-04-03] MEDS ORDERED: *morphine SULFATE 8 MG/ML PERIprocedure ONLY ONE (17:22)
--- NOTE | 2016-04-03 19:54 | MH ---
cc: HAYDEN WOODS M.D. DATE OF ADMISSION 04/02/2016 CHIEF COMPLAINT Large oropharyngeal cancer. HISTORY OF THE PRESENT ILLNESS Mr. Mtz is a pleasant 35-year-old [facility] male who apparently developed a mass on the right side of his face back in June 2014. Unfortunately patient is unable to provide any history and the entire history was obtained from the patient's brother who is at the bedside and is Portuguese-speaking only. The history and physical was conducted through the prop attendant service on the computer. As stated his brother states that it began in June of 2014. It has progressed. He was initially seen in [facility] and the family was told there was nothing they could do. The patient has been at home, cared for by his family. The mass has grown progressively bigger. He has been unable to eat secondary to pain and inability to open his jaw completely. He has been drinking only. I was contacted about caring for the patient. I accepted the patient and he was brought here by private vehicle from [facility]. On arrival the patient was lethargic, very sleepy, difficult to arouse. Per the brother the patient has not been doing well for about the last two months. The brother is uncertain of the diagnosis but paper work provided by the patient's family via email demonstrated this to be a possible squamous cell carcinoma. PAST MEDICAL HISTORY None. PAST SURGICAL HISTORY None. MEDICATIONS None. ALLERGIES None. FAMILY HISTORY Noncontributory. SOCIAL HISTORY The patient lives in [facility]. He has never smoked cigarettes. He has never drank alcohol according to his brother. He does not do any drugs. REVIEW OF SYSTEMS Unobtainable. PHYSICAL EXAMINATION VITAL SIGNS: Temperature is 97, pulse is 100, blood pressure is 98/60, respiratory 20. GENERAL: This is a very thin, emaciated young male lying in bed sleeping. HEENT: Pupils are reactive to light. He has a gigantic right-sided tumor on the side of face going down into the neck. His trachea appears to be slightly deviated the left. Tumor was necrotic and smells quite bad. He has poor dentition. He has no palpable adenopathy that I can appreciate in his neck. LUNGS: Clear to auscultation bilaterally. HEART: S1-S2. No murmur. ABDOMEN: Soft and nontender. EXTREMITIES: No gross deformity x4. LABORATORY DATA White blood count is 39, hemoglobin 10, platelet count is 446. Electrolytes remarkable for a sodium of 126 and creatinine of 3.6. GFR of 19, a calcium of 13.4, protein corrected 13.9. Alkaline phosphatase is 121. Albumin 2.4. Prealbumin is 10. IMAGING CT is pending at this time. IMPRESSION Large right oropharyngeal cancer. PLAN At this point the patient is going to be admitted for further workup and evaluation. I have consulted Dr. Shahzad [facility] who has agreed to help care for the patient. I have also consulted Dr. Beaulieu of radiation oncology who has agreed to help and care for the patient. We will ask [facility] to assist with medical management and I have already discussed it with the [facility] doctors. I actually have already discussed it with Dr. Elias. We will place a central line and start the patient on TPN. We will also get a Peg tube and start him on enteral feeds. Dr. Beaulieu has planned radiation therapy later this week. Obviously the patient is extremely high risk due to his overall debilitated state. This was discussed with the family via prop attendant. MD RAMBO Massey/JENNY /3:54 PM /7:31 PM
[2016-04-03 20:51] LABS: AUTOMATED NEUTROPHIL # 25.4 TH/MM3 (1.8-7.7); BASOPHIL # 0.1 TH/MM3 (0-0.2); BASOPHIL % 0.3 % (0.0-2.0); EOSINOPHIL # 0.2 TH/MM3 (0-0.4); EOSINOPHIL % 0.7 % (0.0-4.0); LYMPH % 4.8 % (9.0-44.0); LYMPHOCYTE # 1.4 TH/MM3 (1.0-4.8); MEAN CELL VOLUME 86.3 FL (80.0-100.0); MEAN CORPUSCULAR HEMOGLOBIN 30.3 PG (27.0-34.0); MEAN CORPUSCULAR HGB CONC 35.1 % (32.0-36.0); MONO % 4.6 % (0.0-8.0); NEUT % 89.6 % (16.0-70.0); PLATELET COUNT 343 TH/MM3 (150-450); RED BLOOD COUNT 2.29 MIL/MM3 (4.50-5.90); RED CELL DISTRIBUTION WIDTH 14.4 % (11.6-17.2); WHITE BLOOD COUNT 28.3 TH/MM3 (4.0-11.0)
[2016-04-03 20:54] LABS: HEMO FLAGS DIFF FINAL
[2016-04-03 20:57] LABS: HEMATOCRIT 19.7 % (39.0-51.0)
[2016-04-03 21:01] LABS: INTERNATIONAL NORMALIZED RATIO 1.4 RATIO; PROTHROMBIN TIME - PATIENT 16.1 SEC (9.8-11.6)
[2016-04-03 21:10] LABS: BICARBONATE 25.8 MEQ/L (21.0-32.0); MAGNESIUM 1.4 MG/DL (1.5-2.5); POTASSIUM 3.2 MEQ/L (3.5-5.1); TOTAL BILIRUBIN ADULT 0.3 MG/DL (0.2-1.0)
[2016-04-03] MEDS ORDERED: MAGNESIUM SULFATE 1 GM PREMIX 100 ML IV SCH (21:45)
[2016-04-03] MEDS: SODIUM CHLORIDE 23.4% INJ 11 MEQ, SODIUM ACETATE INJ 59 MEQ, POTASSIUM CHLORIDE INJ 40 ... IV-CENTRAL SCH ×7 (22:06)
[2016-04-03] MEDS: FAT EMULSION 20% INJ 250 ML (@10 mls/hr) IV-CENTRAL SCH (22:06)
[2016-04-03] MEDS: POTASSIUM CHLOR 20 MEQ PREMIX 100 ML IV SCH (22:15)
[2016-04-03] MEDS: ACETAMINOPHEN 325MG/HYDROcodone 7.5MG/15ML UDC PO PRN (23:31)
[2016-04-04] VITALS (10 sets, daily range): BP systolic 92–106; BP diastolic 55–67; PULSE 76–100; RESP 15–20; TEMP 96–97.6; O2SAT 92–100
[2016-04-04] MEDS: D5-NS + KCL 20 MEQ INJ 1,000 ML IV SCH (00:30)
[2016-04-04] MEDS: POTASSIUM CHLOR 20 MEQ PREMIX 100 ML IV SCH (01:52)
[2016-04-04] MEDS: SODIUM CHLORIDE 0.9% FLUSH 5 ML FLUSH IVF PRN (02:03)
--- NOTE | 2016-04-04 08:05 | HHI.PR ---
Subjective Remarks POD 1 s/p biopsy mass right face/extraction of mandibular teeth pt seen and examined. AAOx3, NAD family/nurse at bedside Objective Vital Signs Date Time Temp Pulse Resp B/P Pulse Ox O2 Delivery O2 Flow Rate FiO2 04/04/16 05:48 97.0 84 15 98/61 100 04/04/16 03:31 97.0 92 15 99/56 100 04/04/16 03:08 96.7 90 16 92/55 100 04/04/16 02:55 91 04/04/16 01:55 97.3 94 16 92/56 99 04/03/16 23:09 96.3 106 16 104/57 97 04/03/16 22:31 98.3 102 16 99/61 04/03/16 20:00 97.1 95 16 99/62 98 04/03/16 18:00 78 18 104/60 99 Nasal Cannula 3 04/03/16 17:45 79 18 104/67 100 Nasal Cannula 3 04/03/16 17:30 83 18 104/69 100 Nasal Cannula 3 04/03/16 17:15 83 18 112/77 100 Nasal Cannula 3 04/03/16 17:00 98 18 108/78 100 Nasal Cannula 3 04/03/16 16:45 84 18 104/69 98 Nasal Cannula 3 04/03/16 16:27 97.4 86 18 99/74 100 Nasal Cannula 3 Manual Cuff/Palpation 04/03/16 12:00 96.5 94 18 106/68 100 I/O 04/03/16 04/03/16 04/03/16 04/04/16 04/04/16 04/04/16 07:00 15:00 23:00 07:00 15:00 23:00 Intake Total 680 ml 750 ml 2380 ml 1161 ml Output Total 400 ml 750 ml 200 ml Balance 280 ml 0 ml 2180 ml 1161 ml Intake Oral 50 ml 0 ml 0 ml IV Total 630 ml 750 ml 580 ml 475 ml Lipid 76 ml Packed Cells 610 ml Other 1800 ml Output Urine Total 400 ml 750 ml 0 ml Estimated Blood Loss 200 ml # Voids 1 1 1 # Bowel Movements 0 Result Diagram: 04/03/162024 Objective Remarks dressing removed, wound/mass hemostatic right face intraorally, extraction sites stable trach midline Assessment and Plan Assessment and Plan mass right face/mandible region s/p extraction of teeth/biopsy yesterday s/p peg tube/central line yesterday invasive squamous cell carcinoma placed new wet/dry /cling dressing labs noted, orders for transfusion noted will follow Joseph Macias DMD Apr 04, 2016 08:05
[2016-04-04 08:28] LABS: AUTOMATED NEUTROPHIL # 26.6 TH/MM3 (1.8-7.7); BASOPHIL % 0.1 % (0.0-2.0); EOSINOPHIL # 0.2 TH/MM3 (0-0.4); EOSINOPHIL % 0.8 % (0.0-4.0); HEMATOCRIT 25.9 % (39.0-51.0); HEMO FLAGS DIFF FINAL; LYMPH % 3.5 % (9.0-44.0); MEAN CELL VOLUME 87.1 FL (80.0-100.0); MEAN CORPUSCULAR HEMOGLOBIN 30.8 PG (27.0-34.0); MEAN CORPUSCULAR HGB CONC 35.4 % (32.0-36.0); MONO % 3.7 % (0.0-8.0); NEUT % 91.9 % (16.0-70.0); PLATELET COUNT 279 TH/MM3 (150-450); RED BLOOD COUNT 2.97 MIL/MM3 (4.50-5.90); RED CELL DISTRIBUTION WIDTH 14.3 % (11.6-17.2)
[2016-04-04] MEDS: FREE WATER G-TUBE SCH ×4 (08:45→23:38)
[2016-04-04] MEDS: SODIUM CHLORIDE 0.9% FLUSH 5 ML FLUSH IVF SCH ×2 (09:00→21:00)
[2016-04-04 09:33] LABS: BICARBONATE 25.2 MEQ/L (21.0-32.0)
[2016-04-04] MEDS ORDERED: POTASSIUM CL 40 MEQ/30 ML LIQ UDC PEG ONE (10:45)
--- NOTE | 2016-04-04 10:46 | HHI.PR ---
Subjective Remarks in no acute distress. pain to the right face is fairly controlled. no fever. d/w the RN and no acute issues over night. Objective Vitals Vital Signs Date Time Temp Pulse Resp B/P Pulse Ox O2 Delivery O2 Flow Rate FiO2 04/04/16 07:00 97.6 89 19 99/64 99 04/04/16 05:48 97.0 84 15 98/61 100 04/04/16 03:31 97.0 92 15 99/56 100 04/04/16 03:08 96.7 90 16 92/55 100 04/04/16 02:55 91 04/04/16 01:55 97.3 94 16 92/56 99 04/03/16 23:09 96.3 106 16 104/57 97 04/03/16 22:31 98.3 102 16 99/61 04/03/16 20:00 97.1 95 16 99/62 98 04/03/16 18:00 78 18 104/60 99 Nasal Cannula 3 04/03/16 17:45 79 18 104/67 100 Nasal Cannula 3 04/03/16 17:30 83 18 104/69 100 Nasal Cannula 3 04/03/16 17:15 83 18 112/77 100 Nasal Cannula 3 04/03/16 17:00 98 18 108/78 100 Nasal Cannula 3 04/03/16 16:45 84 18 104/69 98 Nasal Cannula 3 04/03/16 16:27 97.4 86 18 99/74 100 Nasal Cannula 3 Manual Cuff/Palpation 04/03/16 12:00 96.5 94 18 106/68 100 I/O 04/03/16 04/03/16 04/03/16 04/04/16 04/04/16 04/04/16 07:00 15:00 23:00 07:00 15:00 23:00 Intake Total 680 ml 750 ml 2380 ml 1161 ml Output Total 400 ml 750 ml 200 ml Balance 280 ml 0 ml 2180 ml 1161 ml Intake Oral 50 ml 0 ml 0 ml IV Total 630 ml 750 ml 580 ml 475 ml Lipid 76 ml Packed Cells 610 ml Other 1800 ml Output Urine Total 400 ml 750 ml 0 ml Estimated Blood Loss 200 ml # Voids 1 1 1 # Bowel Movements 0 Result Diagram: 04/04/16 0700 04/04/16 0700 Imaging Last Impressions Chest X-Ray 04/03/16 0000 Signed Impressions: Service Date/Time: Sunday, April 03, 2016 16:42 - CONCLUSION: Left subclavian venous catheter positioned in the superior vena cava with no pneumothorax Yaakov Montaño MD Neck CT 04/02/16 0000 Signed Impressions: Service Date/Time: Saturday, April 02, 2016 11:54 - CONCLUSION: Very large heterogeneous soft tissue mass along the right side of the face with gross destruction involving most of the right mandible. The mass contains amorphous calcifications and appears to involve the right sternocleidomastoid muscle. The mass appears to extend into the oral cavity with diffuse enlargement of the right tonsillar pillar. Neoplastic disease in the primary consideration. Niall Corrales MD Multiplanar Reconstruction 04/02/16 0000 Signed Impressions: Service Date/Time: Saturday, April 02, 2016 11:54 - CONCLUSION: 3-D reconstructive images demonstrating destruction involving most the right side of the mandible. Niall Corrales MD Head CT 04/02/16 0000 Signed Impressions: Service Date/Time: Saturday, April 02, 2016 11:54 - CONCLUSION: 1. Unremarkable CT scan of the brain 2. Large abnormal soft tissue mass with calcifications along the right side of the face. Niall Corrales MD Objective Remarks GENERAL: ill looking but in no acute distress HEENT; swollen right face- covered with clean dressing. CARDIOVASCULAR: Regular rate and regular rhythm without murmurs, gallops, or rubs. RESPIRATORY: Clear to auscultation. Breath sounds equal bilaterally. No wheezes , rales, or rhonchi. GASTROINTESTINAL: Abdomen soft, non-tender, nondistended. Normal, active bowel sounds MUSCULOSKELETAL: Extremities without clubbing, cyanosis, or edema. NEURO: Alert & Oriented x4 to person, place, time, situation. Moves all ext x4 Procedures central line placement PEG placement bone biopsy teeth extraction Medications and IVs Current Medications Sodium Chloride (NS 1000 ml Inj) 1,000 ml @ 75 mls/hr [id number] IV Last administered on 04/02/16 02:38; Start 04/02/16 at 01:45; Stop 04/02/16 at 08:25 ; Status DC Morphine Sulfate (Morphine Inj) 2 mg Q2H PRN IV BREAKTHROUGH PAIN Last administered on 04/02/16 02:38; Start 04/02/16 at 01:45 Ondansetron HCl 4 mg 4 mg Q6H PRN IV PUSH NAUSEA Last administered on 02:38; Start 04/02/16 at 01:45 Sodium Chloride 500 ml @ 0 mls/hr BOLUS ONCE IV Last administered on 04:00; Start 04/02/16 at 04:00; Stop 04/02/16 at 04:01; Status DC Potassium Chloride/Dextrose/ Sod Cl (D5-NS + KCl 20 Meq Inj) 1,000 ml @ 125 mls /hr Q8H IV Last administered on 04/03/16 11:51; Start 04/02/16 at 09:00; Stop 04/04/16 at 08:51; Status DC IV Flush (NS Flush) 2 ml UNSCH PRN IVF FLUSH AFTER USING IV ACCESS Last administered on 04/04/16 02:03; Start 04/02/16 at 08:15 IV Flush (NS Flush) 2 ml BID IVF Last administered on 04/03/16 21:10; Start at 09:00 Acetaminophen (Tylenol) 650 mg Q4H PRN PO PAIN SCALE 1 TO 10; Start 04/02/16 at 09:00; Stop 04/02/16 at 09:00; Status DC Ibuprofen (Motrin) 600 mg Q4H PRN PO PAIN SCALE 1 TO 5; Start 04/02/16 at 08:15 ; Stop 04/02/16 at 08:49; Status DC Hydromorphone HCl (Dilaudid Pf Inj) 0.5 mg Q2H PRN IV PAIN SCALE 6 TO 10; Start 04/02/16 at 08:15; Stop 04/02/16 at 08:49; Status DC Diphenhydramine HCl (Benadryl) 25 mg Q6H PRN PO ITCHING; Start 04/02/16 at 09: 00 Miscellaneous Information (Post-op Orders (for Pharmacy)) STAT ONCE XX ; Start 04/02/16 at 08:15; Stop 04/03/16 at 06:06; Status DC Miscellaneous Information 1 ONCE ONCE XX ; Start 04/02/16 at 08:15; Stop at 06:06; Status DC Enoxaparin Sodium (Lovenox Inj) 30 mg Q24H SQ ; Start 04/04/16 at 15:30 Naloxone HCl (Narcan Inj) 0.4 mg UNSCH PRN IV RESPIRATORY RATE LESS THAN 10; Start 04/02/16 at 08:15; Stop 04/02/16 at 08:49; Status DC Diphenhydramine HCl (Benadryl Inj) 25 mg Q6H PRN IV ITCHING; Start 04/02/16 at 09:00; Stop 04/02/16 at 09:00; Status DC STAFFING OPERATIONS MANAGER Dosage Infused (Pha) 1 Q8HR .XX ; Start 04/02/16 at 09:00; Stop 04/02/16 at 09:00; Status DC Acetaminophen/ Hydrocodone Bitart (Hycet 325-7.5 Mg Liq) 15 ml Q4H PRN PO PAIN SCALE 6-10 Last administered on 04/03/16t 23:31; Start 04/02/16 at 09:00 Ibuprofen (Motrin Liq) 600 mg Q4H PRN PO PAIN SCALE 1-5; Start 04/02/16 at 09: 00; Stop 04/02/16 at 09:02; Status DC Ibuprofen 600 mg 600 mg Q4H PRN PO PAIN SCALE 1-5; Start 04/02/16 at 09:02 Sodium Chloride (NS 500 ml Inj) 500 ml @ 30 mls/hr [id number] IV ; Start 04/03/16 at 03:15; Stop 04/04/16 at 03:14; Status DC Bupivacaine HCl/ Epinephrine Bitart (Sensorcaine-Epinephrine Pf 0.25% Inj) 20 ml STK-MED ONCE .ROUTE ; Start 04/03/16 at 13:46; Stop 04/03/16 at 13:47; Status DC Chlorhexidine Gluconate (Peridex 0.12% Liq) 60 ml STK-MED ONCE .ROUTE ; Start at 13:46; Stop 04/03/16 at 13:47; Status DC Heparin Sodium (Porcine) (Heparin Inj) 10,000 units STK-MED ONCE .ROUTE ; Start 04/03/16 at 13:46; Stop 04/03/16 at 13:47; Status DC Heparin Sodium (Porcine) (Heparin Inj) 10,000 units STK-MED ONCE .ROUTE ; Start 04/03/16 at 13:46; Stop 04/03/16 at 13:47; Status DC Cefazolin Sodium (Ancef Inj) 1,000 mg STK-MED ONCE IV Last administered on 04/03 14:43; Start 04/03/16 at 14:43; Stop 04/03/16 at 15:03; Status DC Lidocaine/ Epinephrine (Xylocaine-Epi 1%-1:100,000 Inj) 50 ml STK-MED ONCE .ROUTE ; Start 04/03/16 at 15:35; Stop 04/03/16 at 15:36; Status DC Lidocaine/ Epinephrine (Xylocaine-Epi 2%-1:100,000 Inj) 30 ml STK-MED ONCE .ROUTE Last administered on 04/03/16 16:01; Start 04/03/16 at 15:35; Stop at 15:36; Status DC Microfibriller Collagen Hemostat (Avitene Powder Pack) 1 gm STK-MED ONCE .ROUTE ; Start 04/03/16 at 15:41; Stop 04/03/16 at 15:42; Status DC Fentanyl Citrate 250 mcg 250 mcg STK-MED ONCE .ROUTE ; Start 04/03/16 at 16:34; Stop 04/03/16 at 16:35; Status DC Sodium Chloride 11 meq/Sodium Acetate 59 meq/ Potassium Chloride 40 meq/ Magnesium Chloride 10 meq/ Multivitamins 10 ml/Folic Acid 1 mg/Amino Acids/ Dextrose 2,067.5261 ml @ 83 mls/hr Q24H IV-CENTRAL Last administered on 22:06; Start 04/03/16 at 20:00 Fat Emulsion Intravenous (Liposyn Iii 20% Inj) 250 ml @ 10 mls/hr Q24H IV- CENTRAL Last administered on 04/03/16 22:06; Start 04/03/16 at 20:00 Morphine Sulfate (*morphine INJ PERIprocedure ONLY) 8 mg STK-MED ONCE .ROUTE Last administered on 04/03/16 17:22; Start 04/03/16 at 17:22; Stop 04/03/16 at 17:23; Status DC Miscellaneous Information ALL NURSING DEPARTME... UNSCH PRN XX SEE LABEL COMMENTS; Start 04/03/16 at 16:28; Stop 04/04/16 at 16:27 Potassium Chloride 100 ml @ 50 mls/hr Q2H IV Last administered on 04/04/16t 01 :52; Start 04/03/16 at 21:45; Stop 04/04/16 at 01:44; Status DC Magnesium Sulfate/ Dextrose (Magnesium Sulfate 1 Gm Premix) 100 ml @ 100 mls/ hr Q1H IV Last administered on 04/04/16t 00:16; Start 04/03/16 at 21:45; Stop 04/03/16 at 23:44; Status DC Water (Free Water) VOLUME: 200 ML Q6HR G-TUBE ; Start 04/04/16 at 08:45 A/P Assessment and Plan A/P - right facial mass - CT of the face with very large heterogeneous soft tissue mass along the right side of the face with gross destruction involving most of the right mandible. The mass contains amorphous calcifications and appears to involve the right sternocleidomastoid muscle. The mass appears to extend into the oral cavity with diffuse enlargement of the right tonsillar pillar. Neoplastic disease in the primary consideration. s/p bone biopsy- follow the pathology- radiation oncology consulted. continue with pain control. surgery following. -acute kidney injury/ hypercalcemia / hyponatremia due to dehydration- improving after hydration - will monitor -anemia- s/p PRBC transfusion- H/H improved- will monitor -hypokalemia; will replace and monitor -leukocytosis- no evidence of active infection at this time- afebrile- will monitor temps and check the CBC in am. -severe malnutrition- s/p PEG placement- will start tube feeding- freight adjuster consulted. -DVT prophylaxis- Meredith Acosta MD Apr 04, 2016 10:46 Meredith Acosta MD Apr 04, 2016 10:46
--- NOTE | 2016-04-04 12:27 | HHI.PR ---
Subjective Subjective Notes Resting in bed Complains of pain 2/10 Family at bedside Objective Vitals/I&O Vital Signs Date Time Temp Pulse Resp B/P Pulse Ox O2 Delivery O2 Flow Rate FiO2 04/04/16 07:25 76 04/04/16 07:00 97.6 19 99/64 99 04/03/16 18:00 Nasal Cannula 3 Labs Laboratory Tests Test 04/03/16 04/03/16 04/03/16 04/03/16 20:25 20:30 20:45 21:38 White Blood Count 28.3 Red Blood Count 2.29 Hemoglobin 6.9 Hematocrit 19.7 Mean Corpuscular Volume 86.3 Mean Corpuscular Hemoglobin 30.3 Mean Corpuscular Hemoglobin 35.1 Concent Red Cell Distribution Width 14.4 Platelet Count 343 Mean Platelet Volume 5.9 Neutrophils (%) (Auto) 89.6 Lymphocytes (%) (Auto) 4.8 Monocytes (%) (Auto) 4.6 Eosinophils (%) (Auto) 0.7 Basophils (%) (Auto) 0.3 Neutrophils # (Auto) 25.4 Lymphocytes # (Auto) 1.4 Monocytes # (Auto) 1.3 Eosinophils # (Auto) 0.2 Basophils # (Auto) 0.1 CBC Comment DIFF FINAL Differential Comment Prothrombin Time 16.1 Prothromb Time International 1.4 Ratio Sodium Level 137 Potassium Level 3.2 Chloride Level 102 Carbon Dioxide Level 25.8 Anion Gap 9 Blood Urea Nitrogen 41 Creatinine 2.11 Estimat Glomerular Filtration 36 Rate Random Glucose 102 Calcium Level 12.9 Protein Corrected Calcium Phosphorus Level 3.9 Magnesium Level 1.4 Total Bilirubin 0.3 Aspartate Amino Transf 17 (AST/SGOT) Alanine Aminotransferase 8 (ALT/SGPT) Alkaline Phosphatase 111 Total Protein 5.3 Albumin 1.6 Triglycerides Level 154 Blood Type O POSITIVE O POSITIVE Antibody Screen NEGATIVE Blood Bank Comment Crossmatch Leukocyte-Reduced Red Blood Cells Test 04/04/16 04/04/16 04:15 07:00 Sodium Level 137 Potassium Level 3.0 Chloride Level 103 Carbon Dioxide Level 25.2 Anion Gap 9 Blood Urea Nitrogen 35 Creatinine 1.77 Estimat Glomerular Filtration 44 Rate Random Glucose 143 Calcium Level 11.5 White Blood Count 29.0 Red Blood Count 2.97 Hemoglobin 9.1 Hematocrit 25.9 Mean Corpuscular Volume 87.1 Mean Corpuscular Hemoglobin 30.8 Mean Corpuscular Hemoglobin 35.4 Concent Red Cell Distribution Width 14.3 Platelet Count 279 Mean Platelet Volume 6.1 Neutrophils (%) (Auto) 91.9 Lymphocytes (%) (Auto) 3.5 Monocytes (%) (Auto) 3.7 Eosinophils (%) (Auto) 0.8 Basophils (%) (Auto) 0.1 Neutrophils # (Auto) 26.6 Lymphocytes # (Auto) 1.0 Monocytes # (Auto) 1.1 Eosinophils # (Auto) 0.2 Basophils # (Auto) 0.0 CBC Comment DIFF FINAL Differential Comment Cardiovascular: Regular Lungs: Clear Abdomen: Other (PEG in place ) Narrative Exam Face: large RIGHT sided facial malignancy A/P Assessment and Plan 35 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 Lezama -Family updated at bedside I ATTEST AND CERTIFY THAT I PERSONALLY WENT IN THE PATIENT'S ROOM AND EXAMINED THEM. I REVIEWED THE EMR WITH THE OPTOMETRIC TECH AND ADVISED HER ON THE CARE PLAN. SHE DOCUMENTED THE VISIT AND ENTERED THE ORDERS IN THE EMR UNDER MY DIRECTION. Brittnee Meraz MD, FACS Apr 04, 2016 12:26 Juan Oseguera MD Apr 05, 2016 11:46
--- NOTE | 2016-04-04 13:58 | HHI.NPPN ---
Subjective Renal Failure: Acute Review of Systems General Constitutional: Fatigue Objective Data Data 04/03/16 04/04/16 19:00 07:00 Intake Total 2550 ml 1741 ml Output Total 950 ml Balance 1600 ml 1741 ml Intake Oral 0 ml 0 ml IV Total 750 ml 1055 ml Lipid 76 ml Packed Cells 610 ml Other 1800 ml Output Urine Total 750 ml Estimated Blood Loss 200 ml # Voids 2 # Bowel Movements 0 Vital Signs Date Time Temp Pulse Resp B/P Pulse Ox O2 Delivery O2 Flow Rate FiO2 04/04/16 12:00 96.0 93 18 100/60 92 04/04/16 07:25 76 04/04/16 07:00 97.6 89 19 99/64 99 04/04/16 05:48 97.0 84 15 98/61 100 04/04/16 03:31 97.0 92 15 99/56 100 04/04/16 03:08 96.7 90 16 92/55 100 04/04/16 02:55 91 04/04/16 01:55 97.3 94 16 92/56 99 04/03/16 23:09 96.3 106 16 104/57 97 04/03/16 22:31 98.3 102 16 99/61 04/03/16 20:00 97.1 95 16 99/62 98 04/03/16 18:00 78 18 104/60 99 Nasal Cannula 3 04/03/16 17:45 79 18 104/67 100 Nasal Cannula 3 04/03/16 17:30 83 18 104/69 100 Nasal Cannula 3 04/03/16 17:15 83 18 112/77 100 Nasal Cannula 3 04/03/16 17:00 98 18 108/78 100 Nasal Cannula 3 04/03/16 16:45 84 18 104/69 98 Nasal Cannula 3 04/03/16 16:27 97.4 86 18 99/74 100 Nasal Cannula 3 Manual Cuff/Palpation -: 04/04/16 0700 04/04/16 0700 Physical Exam General Appearance: Pale Throat Throat Remarks mass rt cheek Neck Neck Exam: Masses Pulmonary Resp Exam: Clear Bilaterally Cardiology CV Exam: Regular Gastrointestinal/Abdomen GI Exam: Soft Extremeties Extremities Exam: No Edema Assessment/Plan Problem List: (1) Acute renal failure Plan: Nonspecific and likely due to dehydration he has marked improvement K replaced nothing to add from Renal pont of view continue to hydrate I will sign off (2) Hypercalcemia Plan: improved (3) Dehydration Plan: on feedings (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
[2016-04-04] MEDS: ENOXAPARIN SODIUM 30 MG/0.3 ML SYRINGE SQ SCH (15:00)
--- NOTE | 2016-04-04 18:31 | HHI.GIFU ---
Subjective Remarks Comfortable in bed tolerating tube feeding complains of some pain at PEG site Objective Vitals I&O Vital Signs Date Time Temp Pulse Resp B/P Pulse Ox O2 Delivery O2 Flow Rate FiO2 04/04/16 16:00 96.6 94 20 100/66 99 04/04/16 12:00 96.0 93 18 100/60 92 04/04/16 07:25 76 04/04/16 07:00 97.6 89 19 99/64 99 04/04/16 05:48 97.0 84 15 98/61 100 04/04/16 03:31 97.0 92 15 99/56 100 04/04/16 03:08 96.7 90 16 92/55 100 04/04/16 02:55 91 04/04/16 01:55 97.3 94 16 92/56 99 04/03/16 23:09 96.3 106 16 104/57 97 04/03/16 22:31 98.3 102 16 99/61 04/03/16 20:00 97.1 95 16 99/62 98 I/O 04/03/16 04/03/16 04/03/16 04/04/16 04/04/16 04/04/16 07:00 15:00 23:00 07:00 15:00 23:00 Intake Total 680 ml 750 ml 2380 ml 1161 ml 0 ml Output Total 400 ml 750 ml 200 ml Balance 280 ml 0 ml 2180 ml 1161 ml 0 ml Intake Oral 50 ml 0 ml 0 ml 0 ml IV Total 630 ml 750 ml 580 ml 475 ml Lipid 76 ml Packed Cells 610 ml Other 1800 ml Output Urine Total 400 ml 750 ml 0 ml Estimated Blood Loss 200 ml # Voids 1 1 1 0 # Bowel Movements 0 Laboratory Laboratory Tests Test 04/03/16 04/03/16 04/03/16 04/03/16 20:25 20:30 20:45 21:38 White Blood Count 28.3 Red Blood Count 2.29 Hemoglobin 6.9 Hematocrit 19.7 Mean Corpuscular Volume 86.3 Mean Corpuscular Hemoglobin 30.3 Mean Corpuscular Hemoglobin 35.1 Concent Red Cell Distribution Width 14.4 Platelet Count 343 Mean Platelet Volume 5.9 Neutrophils (%) (Auto) 89.6 Lymphocytes (%) (Auto) 4.8 Monocytes (%) (Auto) 4.6 Eosinophils (%) (Auto) 0.7 Basophils (%) (Auto) 0.3 Neutrophils # (Auto) 25.4 Lymphocytes # (Auto) 1.4 Monocytes # (Auto) 1.3 Eosinophils # (Auto) 0.2 Basophils # (Auto) 0.1 CBC Comment DIFF FINAL Differential Comment Prothrombin Time 16.1 Prothromb Time International 1.4 Ratio Sodium Level 137 Potassium Level 3.2 Chloride Level 102 Carbon Dioxide Level 25.8 Anion Gap 9 Blood Urea Nitrogen 41 Creatinine 2.11 Estimat Glomerular Filtration 36 Rate Random Glucose 102 Calcium Level 12.9 Protein Corrected Calcium Phosphorus Level 3.9 Magnesium Level 1.4 Total Bilirubin 0.3 Aspartate Amino Transf 17 (AST/SGOT) Alanine Aminotransferase 8 (ALT/SGPT) Alkaline Phosphatase 111 Total Protein 5.3 Albumin 1.6 Triglycerides Level 154 Blood Type O POSITIVE O POSITIVE Antibody Screen NEGATIVE Blood Bank Comment Crossmatch Leukocyte-Reduced Red Blood Cells Test 04/04/16 04/04/16 04:15 07:00 Sodium Level 137 Potassium Level 3.0 Chloride Level 103 Carbon Dioxide Level 25.2 Anion Gap 9 Blood Urea Nitrogen 35 Creatinine 1.77 Estimat Glomerular Filtration 44 Rate Random Glucose 143 Calcium Level 11.5 White Blood Count 29.0 Red Blood Count 2.97 Hemoglobin 9.1 Hematocrit 25.9 Mean Corpuscular Volume 87.1 Mean Corpuscular Hemoglobin 30.8 Mean Corpuscular Hemoglobin 35.4 Concent Red Cell Distribution Width 14.3 Platelet Count 279 Mean Platelet Volume 6.1 Neutrophils (%) (Auto) 91.9 Lymphocytes (%) (Auto) 3.5 Monocytes (%) (Auto) 3.7 Eosinophils (%) (Auto) 0.8 Basophils (%) (Auto) 0.1 Neutrophils # (Auto) 26.6 Lymphocytes # (Auto) 1.0 Monocytes # (Auto) 1.1 Eosinophils # (Auto) 0.2 Basophils # (Auto) 0.0 CBC Comment DIFF FINAL Differential Comment Physical Exam CHEST: Chest is clear to auscultation and percussion. CARDIAC: Regular rate and rhythm with no murmur gallop or rubs. ABDOMEN: Soft, nondistended, PEG site clean some tenderness no rebound or guarding; no hepatosplenomegaly; bowel sounds are present in all four quadrants. EXTREMITIES: No clubbing, cyanosis, or edema. Assessment and Plan Plan Right facial mass with extension into the oral cavity Failure to thrive PEG tube in place tolerating tube feeds GI will sign off Ambrocio Johnson MD Apr 04, 2016 18:30
--- NOTE | 2016-04-04 21:47 | MB ---
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 PATIENT PROFILE: The patient speaks Dutch. His brother is in the room as well as his uncle. There is a tremendous language barrier. I briefly spoke to his neice. I also spoke to the radiation oncologist, Dr. Beaulieu, who speaks Dutch. The patient is single. He has two children. He is from [facility]. 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 There is no significant tobacco and alcohol history. HISTORY OF PRESENT ILLNESS: The patient told the radiation oncologist that about 6 or 12 months ago he had extraction of a tooth that did not heal. He subsequently developed an enlarging mass in this area. He was found to have a squamous cell carcinoma in the area of the right jaw. At some point he was treated with 5-FU, Taxotere and cisplatin. Apparently the doses were relatively small. He did not do well. He was told to go home and that nothing further could be done. He was not able to eat. He could barely drink. The patient was brought from [facility] to the [facility] and is now hospitalized at [place]. 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 On 04/02/2016, he had a CT scan of the neck which shows a large right-sided abnormal soft tissue mass measuring 14.3 x 5.9 x 7.5 cm. This mass extends along the right side of the face from the level of the zygomatic arch down to the lower neck on the right side. There is complete destruction involving the right mandible. There is subcutaneous air within the mass. The mass is causing pressure along the posterior lateral wall of the right maxillary sinus. The mass extends into the region of the oral cavity with diffuse enlargement of the right tonsillar pillar. The mass may involve the floor of the mouth. The presentation is consistent with malignancy. Head CT scan on 04/02/2016 is unremarkable except for the large abnormal soft tissue mass of calcifications along the right side of the face which is better described on the CT of the neck. Chest single AP, 04/03/2016, shows a left subclavian catheter terminating the superior vena cava. There is no mention of metastatic disease. The patient has been transfused two units of packed cells. Current hemoglobin 9, white count 29,000, platelet count 279,000. Creatinine is 1.7, BUN 44, calcium 11.5, previously as high as 13.6. This occurs with an albumin of 1.6. PAST SURGICAL HISTORY: 1. The patient had placement of a gastrostomy tube in the past 24 hours. 2. Biopsy of right facial mass. PAST MEDICAL HISTORY: No medical problems that I am aware of. ALLERGIES: No allergies that I am aware of. MEDICATIONS: No routine medicines prior to hospitalization. He is currently receivin. Lovenox 24 hours. 2. TPN. 3. Ibuprofen. FAMILY HISTORY: Unknown. REVIEW OF SYSTEMS: He cannot speak. He cannot open his mouth. His head is tilted forward. NECK: His neck has a bandage and he has severe muscle wasting. PHYSICAL EXAMINATION: He appears chronically ill. He can barely open his mouth VITAL SIGNS: Blood pressure is 100/60, respiratory rate 20, pulse 94, afebrile. O2 sat is 99%. HEAD: Unremarkable. Sclera unremarkable. I did not remove the bandage as I anticipate there would be bleeding from the huge tumor mass in the right neck. In looking at a picture before the bandage was place there is a huge exophytic mass occupying the right side of the face from slightly below the ear extending anteriorly towards the lips and posteriorly involving the neck. I can feel adenopathy in the submental region, and I believe extending into the left neck but I am not sure. 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 In 30 years of practice, I have never seen a squamous cell cancer as locally advanced as this gentleman has. The likelihood of cure is remote. He has been seen by surgery and it is evident that he cannot undergo surgery unless there were to be a significant reduction in the volume of tumor. PLAN: 1. He is hypercalcemic from the squamous cell cancer. I am going to give him Aredia, although the calcium is not very high. The albumin is low and therefore the protein corrected calcium would be higher than the current calcium of 11.5. 2. He has renal failure. It is improving and I suspect it will continue to improve with IV fluids. 3. I have spoken to Dr. Beaulieu(radiation oncology). Dr. Beaulieu would like me to treat with a radiation condenser operator. I am not sure he will be a candidate for cisplatin and I will probably choose a different radiation condenser operator, such as weekly carboplatin and Taxol, or one could use cetuximab. At the moment his renal function will not allow me to use cisplatin and I want him to avoid any emesis as he would be at risk of aspiration 4: Once renal function has improved I will order a CT scan of the Chest and Abdomen to evaluate for metastatic disease I am going to order an HIV test as this is an unusually aggressive tumor and is reminiscent of what one might see with an HIV positive squamous cell cancer. MD ADIN Sanchez/KAILEY /9:00 PM /9:25 PM WILY
[2016-04-04] MEDS ORDERED: PAMIDRONATE INJ 90 MG in SODIUM CHLOR 0.9% 1000 ML INJ 1,000 ML IV ONE (22:00)
[2016-04-04] MEDS: SODIUM CHLORIDE 23.4% INJ 11 MEQ, SODIUM ACETATE INJ 59 MEQ, POTASSIUM CHLORIDE INJ 40 ... IV-CENTRAL SCH ×7 (23:38)
[2016-04-04] MEDS: FAT EMULSION 20% INJ 250 ML (@10 mls/hr) IV-CENTRAL SCH (23:38)
[2016-04-05] VITALS: BP 103/70; PULSE 107; RESP 18; TEMP 96.7; O2SAT 100
[2016-04-05] MEDS: ACETAMINOPHEN 325MG/HYDROcodone 7.5MG/15ML UDC PO PRN ×3 (00:03→23:08)
[2016-04-05 04:00] VITALS: BP 100/68; PULSE 105; RESP 18; TEMP 98; O2SAT 98
[2016-04-05] MEDS: FREE WATER G-TUBE SCH ×3 (06:00→18:00)
--- NOTE | 2016-04-05 08:02 | HHI.PR ---
Subjective Remarks resting comfortably with no distress. pain is fairly controlled. no new complaints over night. spoke to the family through ultrasound spec service. Objective Vitals Vital Signs Date Time Temp Pulse Resp B/P Pulse Ox O2 Delivery O2 Flow Rate FiO2 04/05/16 04:00 98.0 105 18 100/68 98 04/05/16 00:00 96.7 107 18 103/70 100 04/04/16 20:00 96.0 100 18 106/67 100 04/04/16 16:00 96.6 94 20 100/66 99 04/04/16 12:00 96.0 93 18 100/60 92 I/O 04/04/16 04/04/16 04/04/16 04/05/16 04/05/16 04/05/16 07:00 15:00 23:00 07:00 15:00 23:00 Intake Total 1161 ml 755 ml Output Total 500 ml Balance 1161 ml 755 ml -500 ml Intake Oral 0 ml 0 ml IV Total 475 ml 755 ml Lipid 76 ml Packed Cells 610 ml Output Urine Total 500 ml # Voids 1 0 2 1 # Bowel Movements 0 Result Diagram: 04/04/16 0700 04/04/16 0700 Imaging Last Impressions Chest X-Ray 04/03/16 0000 Signed Impressions: Service Date/Time: Sunday, April 03, 2016 16:42 - CONCLUSION: Left subclavian venous catheter positioned in the superior vena cava with no pneumothorax Yaakov Montaño MD Neck CT 04/02/16 0000 Signed Impressions: Service Date/Time: Saturday, April 02, 2016 11:54 - CONCLUSION: Very large heterogeneous soft tissue mass along the right side of the face with gross destruction involving most of the right mandible. The mass contains amorphous calcifications and appears to involve the right sternocleidomastoid muscle. The mass appears to extend into the oral cavity with diffuse enlargement of the right tonsillar pillar. Neoplastic disease in the primary consideration. Niall Corrales MD Multiplanar Reconstruction 04/02/16 0000 Signed Impressions: Service Date/Time: Saturday, April 02, 2016 11:54 - CONCLUSION: 3-D reconstructive images demonstrating destruction involving most the right side of the mandible. Niall Corrales MD Head CT 04/02/16 0000 Signed Impressions: Service Date/Time: Saturday, April 02, 2016 11:54 - CONCLUSION: 1. Unremarkable CT scan of the brain 2. Large abnormal soft tissue mass with calcifications along the right side of the face. Niall Corrales MD Objective Remarks GENERAL: ill looking but in no acute distress HEENT; swollen right face- covered with clean dressing. CARDIOVASCULAR: Regular rate and regular rhythm without murmurs, gallops, or rubs. RESPIRATORY: Clear to auscultation. Breath sounds equal bilaterally. No wheezes , rales, or rhonchi. GASTROINTESTINAL: Abdomen soft, non-tender, nondistended. Normal, active bowel sounds MUSCULOSKELETAL: Extremities without clubbing, cyanosis, or edema. NEURO: Alert & Oriented x4 to person, place, time, situation. Moves all ext x4 Procedures central line placement PEG placement bone biopsy teeth extraction Medications and IVs Current Medications Sodium Chloride (NS 1000 ml Inj) 1,000 ml @ 75 mls/hr [id number] IV Last administered on 04/02/16 02:38; Start 04/02/16 at 01:45; Stop 04/02/16 at 08:25 ; Status DC Morphine Sulfate (Morphine Inj) 2 mg Q2H PRN IV BREAKTHROUGH PAIN Last administered on 04/02/16 02:38; Start 04/02/16 at 01:45 Ondansetron HCl 4 mg 4 mg Q6H PRN IV PUSH NAUSEA Last administered on 02:38; Start 04/02/16 at 01:45 Sodium Chloride 500 ml @ 0 mls/hr BOLUS ONCE IV Last administered on 04:00; Start 04/02/16 at 04:00; Stop 04/02/16 at 04:01; Status DC Potassium Chloride/Dextrose/ Sod Cl (D5-NS + KCl 20 Meq Inj) 1,000 ml @ 125 mls /hr Q8H IV Last administered on 04/03/16 11:51; Start 04/02/16 at 09:00; Stop 04/04/16 at 08:51; Status DC IV Flush (NS Flush) 2 ml UNSCH PRN IVF FLUSH AFTER USING IV ACCESS Last administered on 04/04/16 02:03; Start 04/02/16 at 08:15 IV Flush (NS Flush) 2 ml BID IVF Last administered on 04/04/16 09:00; Start at 09:00 Acetaminophen (Tylenol) 650 mg Q4H PRN PO PAIN SCALE 1 TO 10; Start 04/02/16 at 09:00; Stop 04/02/16 at 09:00; Status DC Ibuprofen (Motrin) 600 mg Q4H PRN PO PAIN SCALE 1 TO 5; Start 04/02/16 at 08:15 ; Stop 04/02/16 at 08:49; Status DC Hydromorphone HCl (Dilaudid Pf Inj) 0.5 mg Q2H PRN IV PAIN SCALE 6 TO 10; Start 04/02/16 at 08:15; Stop 04/02/16 at 08:49; Status DC Diphenhydramine HCl (Benadryl) 25 mg Q6H PRN PO ITCHING; Start 04/02/16 at 09: 00 Miscellaneous Information (Post-op Orders (for Pharmacy)) STAT ONCE XX ; Start 04/02/16 at 08:15; Stop 04/03/16 at 06:06; Status DC Miscellaneous Information 1 ONCE ONCE XX ; Start 04/02/16 at 08:15; Stop at 06:06; Status DC Enoxaparin Sodium (Lovenox Inj) 30 mg Q24H SQ ; Start 04/04/16 at 15:30 Naloxone HCl (Narcan Inj) 0.4 mg UNSCH PRN IV RESPIRATORY RATE LESS THAN 10; Start 04/02/16 at 08:15; Stop 04/02/16 at 08:49; Status DC Diphenhydramine HCl (Benadryl Inj) 25 mg Q6H PRN IV ITCHING; Start 04/02/16 at 09:00; Stop 04/02/16 at 09:00; Status DC ELECTRIC DRILL OPERATOR Dosage Infused (Pha) 1 Q8HR .XX ; Start 04/02/16 at 09:00; Stop 04/02/16 at 09:00; Status DC Acetaminophen/ Hydrocodone Bitart (Hycet 325-7.5 Mg Liq) 15 ml Q4H PRN PO PAIN SCALE 6-10 Last administered on 04/05/16 00:03; Start 04/02/16 at 09:00 Ibuprofen (Motrin Liq) 600 mg Q4H PRN PO PAIN SCALE 1-5; Start 04/02/16 at 09: 00; Stop 04/02/16 at 09:02; Status DC Ibuprofen 600 mg 600 mg Q4H PRN PO PAIN SCALE 1-5; Start 04/02/16 at 09:02 Sodium Chloride (NS 500 ml Inj) 500 ml @ 30 mls/hr [id number] IV ; Start 04/03/16 at 03:15; Stop 04/04/16 at 03:14; Status DC Bupivacaine HCl/ Epinephrine Bitart (Sensorcaine-Epinephrine Pf 0.25% Inj) 20 ml STK-MED ONCE .ROUTE ; Start 04/03/16 at 13:46; Stop 04/03/16 at 13:47; Status DC Chlorhexidine Gluconate (Peridex 0.12% Liq) 60 ml STK-MED ONCE .ROUTE ; Start at 13:46; Stop 04/03/16 at 13:47; Status DC Heparin Sodium (Porcine) (Heparin Inj) 10,000 units STK-MED ONCE .ROUTE ; Start 04/03/16 at 13:46; Stop 04/03/16 at 13:47; Status DC Heparin Sodium (Porcine) (Heparin Inj) 10,000 units STK-MED ONCE .ROUTE ; Start 04/03/16 at 13:46; Stop 04/03/16 at 13:47; Status DC Cefazolin Sodium (Ancef Inj) 1,000 mg STK-MED ONCE IV Last administered on 04/03t 14:43; Start 04/03/16 at 14:43; Stop 04/03/16 at 15:03; Status DC Lidocaine/ Epinephrine (Xylocaine-Epi 1%-1:100,000 Inj) 50 ml STK-MED ONCE .ROUTE ; Start 04/03/16 at 15:35; Stop 04/03/16 at 15:36; Status DC Lidocaine/ Epinephrine (Xylocaine-Epi 2%-1:100,000 Inj) 30 ml STK-MED ONCE .ROUTE Last administered on 04/03/16t 16:01; Start 04/03/16 at 15:35; Stop at 15:36; Status DC Microfibriller Collagen Hemostat (Avitene Powder Pack) 1 gm STK-MED ONCE .ROUTE ; Start 04/03/16 at 15:41; Stop 04/03/16 at 15:42; Status DC Fentanyl Citrate 250 mcg 250 mcg STK-MED ONCE .ROUTE ; Start 04/03/16 at 16:34; Stop 04/03/16 at 16:35; Status DC Sodium Chloride 11 meq/Sodium Acetate 59 meq/ Potassium Chloride 40 meq/ Magnesium Chloride 10 meq/ Multivitamins 10 ml/Folic Acid 1 mg/Amino Acids/ Dextrose 2,067.5261 ml @ 83 mls/hr Q24H IV-CENTRAL Last administered on 23:38; Start 04/03/16 at 20:00 Fat Emulsion Intravenous (Liposyn Iii 20% Inj) 250 ml @ 10 mls/hr Q24H IV- CENTRAL Last administered on 04/04/16 23:38; Start 04/03/16 at 20:00 Morphine Sulfate (*morphine INJ PERIprocedure ONLY) 8 mg STK-MED ONCE .ROUTE Last administered on 04/03/16 17:22; Start 04/03/16 at 17:22; Stop 04/03/16 at 17:23; Status DC Miscellaneous Information ALL NURSING DEPARTME... UNSCH PRN XX SEE LABEL COMMENTS; Start 04/03/16 at 16:28; Stop 04/04/16 at 16:27; Status DC Potassium Chloride 100 ml @ 50 mls/hr Q2H IV Last administered on 04/04/16 01 :52; Start 04/03/16 at 21:45; Stop 04/04/16 at 01:44; Status DC Magnesium Sulfate/ Dextrose (Magnesium Sulfate 1 Gm Premix) 100 ml @ 100 mls/ hr Q1H IV Last administered on 04/04/16 00:16; Start 04/03/16 at 21:45; Stop 04/03/16 at 23:44; Status DC Water (Free Water) VOLUME: 200 ML Q6HR G-TUBE Last administered on 04/05/16 06: 00; Start 04/04/16 at 08:45 Potassium Chloride (KCl 40 Meq/30 ml Liq) 40 meq ONCE ONCE PEG Last administered on 04/04/16 10:45; Start 04/04/16 at 10:45; Stop 04/04/16 at 10:50 ; Status DC Propofol (Diprivan 200 Mg/20 ml Inj) 200 mg STK-MED ONCE IV ; Start 04/03/16 at 10:46; Stop 04/04/16 at 10:46; Status DC Phenylephrine HCl (Neosynephrine/ NS 1000 Mcg/10ml Syr) 1,000 mcg STK-MED ONCE IV ; Start 04/03/16 at 10:46; Stop 04/04/16 at 10:46; Status DC Ondansetron HCl 4 mg 4 mg STK-MED ONCE IV PUSH ; Start 04/03/16 at 10:46; Stop 04/04/16 at 10:46; Status DC Lactated Ringer's 1,000 ml @ As Directed STK-MED ONCE IV ; Start 04/03/16 at 10 :46; Stop 04/04/16 at 10:46; Status DC Pamidronate Disodium/Sodium Chloride (Aredia Inj/NS 1000 ml Inj) 1,000 ml @ 42 mls/hr ONCE ONCE IV Last administered on 04/04/16t 23:37; Start 04/04/16 at 22 :00; Stop 04/05/16 at 21:48 A/P Assessment and Plan 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 The mass contains amorphous calcifications and appears to involve the right sternocleidomastoid muscle. The mass appears to extend into the oral cavity with diffuse enlargement of the right tonsillar pillar. Neoplastic disease in the primary consideration. 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 continue with pain control. general and facial surgery following. -acute kidney injury/ hypercalcemia / hyponatremia due to dehydration- received a dose of Aradia - improving after hydration - will monitor -anemia- s/p PRBC transfusion- H/H improved- will monitor -hypokalemia; replaced- will monitor -leukocytosis- no evidence of active infection at this time- afebrile- will monitor temps and check the CBC in am. -severe malnutrition- s/p PEG placement- tube feeding and TPN initiated- grounds maintenance worker consulted. -DVT prophylaxis with Meredith Talbert MD Apr 05, 2016 08:02
[2016-04-05 08:23] LABS: AUTOMATED NEUTROPHIL # 31.7 TH/MM3 (1.8-7.7); BASOPHIL # 0.2 TH/MM3 (0-0.2); BASOPHIL % 0.5 % (0.0-2.0); EOSINOPHIL # 0.3 TH/MM3 (0-0.4); EOSINOPHIL % 0.9 % (0.0-4.0); HEMATOCRIT 28.8 % (39.0-51.0); LYMPH % 3.8 % (9.0-44.0); LYMPHOCYTE # 1.3 TH/MM3 (1.0-4.8); MEAN CELL VOLUME 85.5 FL (80.0-100.0); MEAN CORPUSCULAR HEMOGLOBIN 29.5 PG (27.0-34.0); MEAN CORPUSCULAR HGB CONC 34.5 % (32.0-36.0); MONO % 5.3 % (0.0-8.0); NEUT % 89.5 % (16.0-70.0); PLATELET COUNT 236 TH/MM3 (150-450); RED BLOOD COUNT 3.37 MIL/MM3 (4.50-5.90); RED CELL DISTRIBUTION WIDTH 14.6 % (11.6-17.2); WHITE BLOOD COUNT 35.4 TH/MM3 (4.0-11.0)
[2016-04-05 08:26] LABS: HEMO FLAGS AUTO DIFF
[2016-04-05 08:48] LABS: POTASSIUM 3.2 MEQ/L (3.5-5.1)
[2016-04-05 09:00] VITALS: BP 105/70; PULSE 114; RESP 16; O2SAT 100
[2016-04-05] MEDS: SODIUM CHLORIDE 0.9% FLUSH 5 ML FLUSH IVF SCH ×2 (09:00→21:00)
[2016-04-05 09:06] LABS: BANDS 3 % (0-6); NEUTROPHIL # MANUAL DIFF 26.9 TH/MM3 (1.8-7.7); POLYS (SEG NEUTROPHILS) 73 % (16-70); WBC DIFF SAMPLE 100
[2016-04-05 09:08] LABS: PLATELET ESTIMATE SMEAR NORMAL (NORMAL); PLATELET MORPHOLOGY CLUMPED (NORMAL)
[2016-04-05 09:09] LABS: SCAN/DIFF FINAL DIFF MANUAL
--- NOTE | 2016-04-05 10:46 | HHI.PR ---
Subjective Subjective Notes Brother at bedside---used plant health manager computer Inquiring about when radiation will start Objective Vitals/I&O Vital Signs Date Time Temp Pulse Resp B/P Pulse Ox O2 Delivery O2 Flow Rate FiO2 04/05/16 09:00 114 16 105/70 100 04/05/16 04:00 98.0 04/03/16 18:00 Nasal Cannula 3 Labs Laboratory Tests Test 04/05/16 06:40 White Blood Count 35.4 Red Blood Count 3.37 Hemoglobin 9.9 Hematocrit 28.8 Mean Corpuscular Volume 85.5 Mean Corpuscular Hemoglobin 29.5 Mean Corpuscular Hemoglobin 34.5 Concent Red Cell Distribution Width 14.6 Platelet Count 236 Mean Platelet Volume 6.6 Neutrophils (%) (Auto) 89.5 Lymphocytes (%) (Auto) 3.8 Monocytes (%) (Auto) 5.3 Eosinophils (%) (Auto) 0.9 Basophils (%) (Auto) 0.5 Neutrophils # (Auto) 31.7 Lymphocytes # (Auto) 1.3 Monocytes # (Auto) 1.9 Eosinophils # (Auto) 0.3 Basophils # (Auto) 0.2 CBC Comment AUTO DIFF Differential Total Cells 100 Counted Neutrophils % (Manual) 73 Band Neutrophils % 3 Lymphocytes % 17 Monocytes % 7 Neutrophils # (Manual) 26.9 Differential Comment FINAL DIFF MANUAL Atypical Lymphocytes Platelet Estimate NORMAL Platelet Morphology Comment CLUMPED Hematology Comments Sodium Level 137 Potassium Level 3.2 Chloride Level 103 Carbon Dioxide Level 18.0 Anion Gap 16 Blood Urea Nitrogen 33 Creatinine 1.55 Estimat Glomerular Filtration 51 Rate Random Glucose 135 Calcium Level 12.0 Protein Corrected Calcium Total Protein 5.5 Cardiovascular: Regular Lungs: Clear Abdomen: Other (PEG in place ) Extremities: No edema Narrative Exam Face: large RIGHT sided facial malignancy A/P Assessment and Plan 35 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 Lezama -All patient's and brother's questions were answered using translation service computer I ATTEST AND CERTIFY THAT I PERSONALLY WENT IN THE PATIENT'S ROOM AND EXAMINED THEM. I REVIEWED THE EMR WITH THE JAVA ENTERPRISE ARCHITECT AND ADVISED HER ON THE CARE PLAN. SHE DOCUMENTED THE VISIT AND ENTERED THE ORDERS IN THE EMR UNDER MY DIRECTION. HAYDEN WOODS MD FACS Brittnee Stapleton Apr 05, 2016 10:46 Hayden Woods MD Apr 05, 2016 11:47
--- NOTE | 2016-04-05 11:39 | PD.ONC.PN ---
Subjective Subjective Remarks Afebrile overnight. Patient sitting on side of bed with RN and wound care nurse present. The patient was seen and examined with Dr. Juan Oseguera at the bedside and an safety representative on the computer. Pain is controlled with prn medications. He is scheduled to have XRT simulation today at 1 PM. Objective Data Date Time Temp Pulse Resp B/P Pulse Ox O2 Delivery O2 Flow Rate FiO2 04/05/16 09:00 114 16 105/70 100 04/05/16 04:00 98.0 105 18 100/68 98 04/05/16 00:00 96.7 107 18 103/70 100 04/04/16 20:00 96.0 100 18 106/67 100 04/04/16 16:00 96.6 94 20 100/66 99 04/04/16 12:00 96.0 93 18 100/60 92 04/05/16 04/05/16 04/05/16 07:00 15:00 23:00 Output Total 500 ml Balance -500 ml Result Diagram: 04/05/16 0640 04/05/16 0640 Laboratory Results Laboratory Tests Test 04/05/16 06:40 White Blood Count 35.4 TH/MM3 Red Blood Count 3.37 MIL/MM3 Hemoglobin 9.9 GM/DL Hematocrit 28.8 % Mean Corpuscular Volume 85.5 FL Mean Corpuscular Hemoglobin 29.5 PG Mean Corpuscular Hemoglobin 34.5 % Concent Red Cell Distribution Width 14.6 % Platelet Count 236 TH/MM3 Mean Platelet Volume 6.6 FL Neutrophils (%) (Auto) 89.5 % Lymphocytes (%) (Auto) 3.8 % Monocytes (%) (Auto) 5.3 % Eosinophils (%) (Auto) 0.9 % Basophils (%) (Auto) 0.5 % Neutrophils # (Auto) 31.7 TH/MM3 Lymphocytes # (Auto) 1.3 TH/MM3 Monocytes # (Auto) 1.9 TH/MM3 Eosinophils # (Auto) 0.3 TH/MM3 Basophils # (Auto) 0.2 TH/MM3 CBC Comment AUTO DIFF Differential Total Cells 100 Counted Neutrophils % (Manual) 73 % Band Neutrophils % 3 % Lymphocytes % 17 % Monocytes % 7 % Neutrophils # (Manual) 26.9 TH/MM3 Differential Comment FINAL DIFF MANUAL Atypical Lymphocytes % Platelet Estimate NORMAL Platelet Morphology Comment CLUMPED Hematology Comments Sodium Level 137 MEQ/L Potassium Level 3.2 MEQ/L Chloride Level 103 MEQ/L Carbon Dioxide Level 18.0 MEQ/L Anion Gap 16 MEQ/L Blood Urea Nitrogen 33 MG/DL Creatinine 1.55 MG/DL Estimat Glomerular Filtration 51 ML/MIN Rate Random Glucose 135 MG/DL Calcium Level 12.0 MG/DL Protein Corrected Calcium MG/DL Total Protein 5.5 GM/DL Imaging Studies Last Impressions Chest X-Ray 04/03/16 0000 Signed Impressions: Service Date/Time: Sunday, April 03, 2016 16:42 - CONCLUSION: Left subclavian venous catheter positioned in the superior vena cava with no pneumothorax Yaakov Montaño MD Neck CT 04/02/16 0000 Signed Impressions: Service Date/Time: Saturday, April 02, 2016 11:54 - CONCLUSION: Very large heterogeneous soft tissue mass along the right side of the face with gross destruction involving most of the right mandible. The mass contains amorphous calcifications and appears to involve the right sternocleidomastoid muscle. The mass appears to extend into the oral cavity with diffuse enlargement of the right tonsillar pillar. Neoplastic disease in the primary consideration. Niall Corrales MD Multiplanar Reconstruction 04/02/16 0000 Signed Impressions: Service Date/Time: Saturday, April 02, 2016 11:54 - CONCLUSION: 3-D reconstructive images demonstrating destruction involving most the right side of the mandible. Niall Corrales MD Head CT 04/02/16 0000 Signed Impressions: Service Date/Time: Saturday, April 02, 2016 11:54 - CONCLUSION: 1. Unremarkable CT scan of the brain 2. Large abnormal soft tissue mass with calcifications along the right side of the face. Niall Corrales MD Administered Medications Medications (Trade) Dose Ordered Sig/Sara Route PRN Reason Start Time Stop Time Status Last Admin Dose Admin Morphine Sulfate (Morphine Inj) 2 mg Q2H PRN IV BREAKTHROUGH PAIN 04/02/16 01:45 04/02/16 02:38 Ondansetron HCl (Zofran Inj) 4 mg Q6H PRN IV PUSH NAUSEA 04/02/16 01:45 04/02/16 02:38 IV Flush (NS Flush) 2 ml UNSCH PRN IVF FLUSH AFTER USING IV ACCESS 04/02/16 08:15 04/04/16 02:03 IV Flush (NS Flush) 2 ml BID IVF 04/02/16 09:00 04/04/16 09:00 Acetaminophen/ Hydrocodone Bitart 15 ml 15 ml Q4H PRN PO PAIN SCALE 6-10 04/02/16 09:00 04/05/16 00:03 Sodium Chloride 11 meq/Sodium Acetate 59 meq/ Potassium Chloride 40 meq/ Magnesium Chloride 10 meq/ Multivitamins 10 ml/Folic Acid 1 mg/Amino Acids/ Dextrose 2,067.5261 ml @ 83 mls/hr Q24H IV-CENTRAL 04/03/16 20:00 04/04/16 23:38 Fat Emulsion Intravenous (Liposyn Iii 20% Inj) 250 ml @ 10 mls/hr Q24H IV-CENTRAL 04/03/16 20:00 04/04/16 23:38 Water VOLUME: 200 ML Q6HR G-TUBE 04/04/16 08:45 04/05/16 06:00 Pamidronate Disodium/Sodium Chloride (Aredia Inj/NS 1000 ml Inj) 1,000 ml @ 42 mls/hr ONCE ONCE IV 04/04/16 22:00 04/05/16 21:48 04/04/16 23:37 Objective Remarks GENERAL: Young, malnourished male sitting on side of bed in no distress. SKIN: Warm and dry. L SC TLC in place. No oozing from line. HEAD: Disfigured d/t a large mass protruding from the R side of the face. It is currently covered with a dressing. EYES: No injection or drainage. NECK: Supple, trachea midline. CARDIOVASCULAR: S1/S2. No murmur RESPIRATORY: Lungs clear throughout. Breathing unlabored. GASTROINTESTINAL: Abdomen soft, non-tender, nondistended. PEG tube in place with Jevity infusing. EXTREMITIES: No edema. MUSCULOSKELETAL: Generalized weakness. NEUROLOGICAL: No obvious focal deficit. Unable to speak d/t mass. Assessment/Plan Assessment 35 y/o male who came from [facility] for treatment of an aggressive squamous cell carcinoma. His chemistries are vastly improved from admission. He was given pamidronate for hypercalcemia but this will take up to 3 days to take effect. Once his kidney function improves we will get a CT CAP with contrast to assess for mets. He is scheduled to go to XRT for simulation today at 1pm. We will likely give him weekly chemo to be used as a radiation residential youth counselor. Awaiting results of HIV testing. Attending Statement The exam, history, and the medical decision-making described in the above note were completed with the assistance of the mid-level provider. I reviewed and agree with the findings presented. I attest that I had a [id number] encounter with the patient on the same day, and personally performed and documented my assessment and findings in the medical record. The mass over the face which extends into the oral cavity now has a purulent foul smelling drainage. Will ask wound care to evaluate. Situation tragic. Amy uBrris Apr 05, 2016 11:39 Yovany Lezama MD Apr 05, 2016 19:42
[2016-04-05 12:00] VITALS: BP 102/63; PULSE 104; RESP 24; TEMP 96.8; O2SAT 100
[2016-04-05] MEDS ORDERED: POTASSIUM CL 40 MEQ/30 ML LIQ UDC PEG ONE (12:00)
[2016-04-05] MEDS: ENOXAPARIN SODIUM 30 MG/0.3 ML SYRINGE SQ SCH (15:12)
[2016-04-05 15:23] LABS: BACTERIA, URINE RARE /hpf; BLOOD, URINE TRACE (NEG); COMMENT (UR) CULTURE INDICATED; CULTURE IF INDICATED CULTURE INDICATED; GLUCOSE,URINE 1000 mg/dL (NEG); KETONE, URINE NEG (NEG); NITRITE,URINE NEG (NEG); PH, URINE 5.5 (5.0-8.5); URINE COLOR YELLOW (YELLW/STRAW)
[2016-04-05 20:00] VITALS: BP 103/68; PULSE 99; RESP 18; TEMP 96.9; O2SAT 100
[2016-04-05] MEDS: FAT EMULSION 20% INJ 250 ML (@10 mls/hr) IV-CENTRAL SCH (22:33)
[2016-04-05] MEDS: SODIUM CHLORIDE 23.4% INJ 11 MEQ, SODIUM ACETATE INJ 59 MEQ, POTASSIUM CHLORIDE INJ 40 ... IV-CENTRAL SCH ×7 (22:34)
[2016-04-06] VITALS (10 sets, daily range): BP systolic 79–115; BP diastolic 41–69; PULSE 100–135; RESP 16–20; TEMP 97–102; O2SAT 95–100
[2016-04-06] MEDS: FREE WATER G-TUBE SCH ×4 (05:30→17:28)
[2016-04-06] MEDS: SODIUM CHLORIDE 0.9% FLUSH 5 ML FLUSH IVF SCH ×2 (09:00→22:28)
--- NOTE | 2016-04-06 09:05 | HHI.PR ---
Subjective Remarks in no acute distress. pain to the right face is fairly controlled. no fever. Objective Vitals Vital Signs Date Time Temp Pulse Resp B/P Pulse Ox O2 Delivery O2 Flow Rate FiO2 04/06/16 04:00 98.1 117 18 96/69 99 04/06/16 00:00 97.0 100 16 98/65 99 04/05/16 20:00 96.9 99 18 103/68 100 04/05/16 12:00 96.8 104 24 102/63 100 I/O 04/05/16 04/05/16 04/05/16 04/06/16 04/06/16 04/06/16 07:00 15:00 23:00 07:00 15:00 23:00 Intake Total 0 ml 1868 ml Output Total 500 ml 700 ml 400 ml 700 ml Balance -500 ml -700 ml 1468 ml -700 ml Intake Oral 0 ml IV Total 366 ml Tube Feeding 420 ml TPN/PPN 984 ml Lipid 98 ml Output Urine Total 500 ml 700 ml 400 ml 700 ml # Voids 1 Result Diagram: 04/05/16 0640 04/05/16 0640 Imaging Last Impressions Chest X-Ray 04/03/16 0000 Signed Impressions: Service Date/Time: Sunday, April 03, 2016 16:42 - CONCLUSION: Left subclavian venous catheter positioned in the superior vena cava with no pneumothorax Yaakov Montaño MD Neck CT 04/02/16 0000 Signed Impressions: Service Date/Time: Saturday, April 02, 2016 11:54 - CONCLUSION: Very large heterogeneous soft tissue mass along the right side of the face with gross destruction involving most of the right mandible. The mass contains amorphous calcifications and appears to involve the right sternocleidomastoid muscle. The mass appears to extend into the oral cavity with diffuse enlargement of the right tonsillar pillar. Neoplastic disease in the primary consideration. Niall Corrales MD Multiplanar Reconstruction 04/02/16 0000 Signed Impressions: Service Date/Time: Saturday, April 02, 2016 11:54 - CONCLUSION: 3-D reconstructive images demonstrating destruction involving most the right side of the mandible. Niall Corrales MD Head CT 04/02/16 0000 Signed Impressions: Service Date/Time: Saturday, April 02, 2016 11:54 - CONCLUSION: 1. Unremarkable CT scan of the brain 2. Large abnormal soft tissue mass with calcifications along the right side of the face. Niall Corrales MD Objective Remarks GENERAL: ill looking but in no acute distress HEENT; swollen right face- covered with clean dressing. CARDIOVASCULAR: Regular rate and regular rhythm without murmurs, gallops, or rubs. RESPIRATORY: Clear to auscultation. Breath sounds equal bilaterally. No wheezes , rales, or rhonchi. GASTROINTESTINAL: Abdomen soft, non-tender, nondistended. Normal, active bowel sounds MUSCULOSKELETAL: Extremities without clubbing, cyanosis, or edema. NEURO: Alert & Oriented x4 to person, place, time, situation. Moves all ext x4 Procedures central line placement PEG placement bone biopsy teeth extraction Medications and IVs Current Medications Sodium Chloride (NS 1000 ml Inj) 1,000 ml @ 75 mls/hr [id number] IV Last administered on 04/02/16 02:38; Start 04/02/16 at 01:45; Stop 04/02/16 at 08:25 ; Status DC Morphine Sulfate (Morphine Inj) 2 mg Q2H PRN IV BREAKTHROUGH PAIN Last administered on 04/02/16 02:38; Start 04/02/16 at 01:45 Ondansetron HCl 4 mg 4 mg Q6H PRN IV PUSH NAUSEA Last administered on 02:38; Start 04/02/16 at 01:45 Sodium Chloride 500 ml @ 0 mls/hr BOLUS ONCE IV Last administered on 04:00; Start 04/02/16 at 04:00; Stop 04/02/16 at 04:01; Status DC Potassium Chloride/Dextrose/ Sod Cl (D5-NS + KCl 20 Meq Inj) 1,000 ml @ 125 mls /hr Q8H IV Last administered on 04/03/16 11:51; Start 04/02/16 at 09:00; Stop 04/04/16 at 08:51; Status DC IV Flush (NS Flush) 2 ml UNSCH PRN IVF FLUSH AFTER USING IV ACCESS Last administered on 04/04/16 02:03; Start 04/02/16 at 08:15 IV Flush (NS Flush) 2 ml BID IVF Last administered on 04/04/16 09:00; Start at 09:00 Acetaminophen (Tylenol) 650 mg Q4H PRN PO PAIN SCALE 1 TO 10; Start 04/02/16 at 09:00; Stop 04/02/16 at 09:00; Status DC Ibuprofen (Motrin) 600 mg Q4H PRN PO PAIN SCALE 1 TO 5; Start 04/02/16 at 08:15 ; Stop 04/02/16 at 08:49; Status DC Hydromorphone HCl (Dilaudid Pf Inj) 0.5 mg Q2H PRN IV PAIN SCALE 6 TO 10; Start 04/02/16 at 08:15; Stop 04/02/16 at 08:49; Status DC Diphenhydramine HCl (Benadryl) 25 mg Q6H PRN PO ITCHING; Start 04/02/16 at 09: 00 Miscellaneous Information (Post-op Orders (for Pharmacy)) STAT ONCE XX ; Start 04/02/16 at 08:15; Stop 04/03/16 at 06:06; Status DC Miscellaneous Information 1 ONCE ONCE XX ; Start 04/02/16 at 08:15; Stop at 06:06; Status DC Enoxaparin Sodium (Lovenox Inj) 30 mg Q24H SQ ; Start 04/04/16 at 15:30 Naloxone HCl (Narcan Inj) 0.4 mg UNSCH PRN IV RESPIRATORY RATE LESS THAN 10; Start 04/02/16 at 08:15; Stop 04/02/16 at 08:49; Status DC Diphenhydramine HCl (Benadryl Inj) 25 mg Q6H PRN IV ITCHING; Start 04/02/16 at 09:00; Stop 04/02/16 at 09:00; Status DC PRESS CUTTER Dosage Infused (Pha) 1 Q8HR .XX ; Start 04/02/16 at 09:00; Stop 04/02/16 at 09:00; Status DC Acetaminophen/ Hydrocodone Bitart (Hycet 325-7.5 Mg Liq) 15 ml Q4H PRN PO PAIN SCALE 6-10 Last administered on 04/05/16t 23:08; Start 04/02/16 at 09:00 Ibuprofen (Motrin Liq) 600 mg Q4H PRN PO PAIN SCALE 1-5; Start 04/02/16 at 09: 00; Stop 04/02/16 at 09:02; Status DC Ibuprofen 600 mg 600 mg Q4H PRN PO PAIN SCALE 1-5; Start 04/02/16 at 09:02 Sodium Chloride (NS 500 ml Inj) 500 ml @ 30 mls/hr [id number] IV ; Start 04/03/16 at 03:15; Stop 04/04/16 at 03:14; Status DC Bupivacaine HCl/ Epinephrine Bitart (Sensorcaine-Epinephrine Pf 0.25% Inj) 20 ml STK-MED ONCE .ROUTE ; Start 04/03/16 at 13:46; Stop 04/03/16 at 13:47; Status DC Chlorhexidine Gluconate (Peridex 0.12% Liq) 60 ml STK-MED ONCE .ROUTE ; Start at 13:46; Stop 04/03/16 at 13:47; Status DC Heparin Sodium (Porcine) (Heparin Inj) 10,000 units STK-MED ONCE .ROUTE ; Start 04/03/16 at 13:46; Stop 04/03/16 at 13:47; Status DC Heparin Sodium (Porcine) (Heparin Inj) 10,000 units STK-MED ONCE .ROUTE ; Start 04/03/16 at 13:46; Stop 04/03/16 at 13:47; Status DC Cefazolin Sodium (Ancef Inj) 1,000 mg STK-MED ONCE IV Last administered on 04/03 14:43; Start 04/03/16 at 14:43; Stop 04/03/16 at 15:03; Status DC Lidocaine/ Epinephrine (Xylocaine-Epi 1%-1:100,000 Inj) 50 ml STK-MED ONCE .ROUTE ; Start 04/03/16 at 15:35; Stop 04/03/16 at 15:36; Status DC Lidocaine/ Epinephrine (Xylocaine-Epi 2%-1:100,000 Inj) 30 ml STK-MED ONCE .ROUTE Last administered on 04/03/16 16:01; Start 04/03/16 at 15:35; Stop at 15:36; Status DC Microfibriller Collagen Hemostat (Avitene Powder Pack) 1 gm STK-MED ONCE .ROUTE ; Start 04/03/16 at 15:41; Stop 04/03/16 at 15:42; Status DC Fentanyl Citrate 250 mcg 250 mcg STK-MED ONCE .ROUTE ; Start 04/03/16 at 16:34; Stop 04/03/16 at 16:35; Status DC Sodium Chloride 11 meq/Sodium Acetate 59 meq/ Potassium Chloride 40 meq/ Magnesium Chloride 10 meq/ Multivitamins 10 ml/Folic Acid 1 mg/Amino Acids/ Dextrose 2,067.5261 ml @ 83 mls/hr Q24H IV-CENTRAL Last administered on 22:34; Start 04/03/16 at 20:00 Fat Emulsion Intravenous (Liposyn Iii 20% Inj) 250 ml @ 10 mls/hr Q24H IV- CENTRAL Last administered on 04/05/16 22:33; Start 04/03/16 at 20:00 Morphine Sulfate (*morphine INJ PERIprocedure ONLY) 8 mg STK-MED ONCE .ROUTE Last administered on 04/03/16 17:22; Start 04/03/16 at 17:22; Stop 04/03/16 at 17:23; Status DC Miscellaneous Information ALL NURSING DEPARTME... UNSCH PRN XX SEE LABEL COMMENTS; Start 04/03/16 at 16:28; Stop 04/04/16 at 16:27; Status DC Potassium Chloride 100 ml @ 50 mls/hr Q2H IV Last administered on 04/04/16 01 :52; Start 04/03/16 at 21:45; Stop 04/04/16 at 01:44; Status DC Magnesium Sulfate/ Dextrose (Magnesium Sulfate 1 Gm Premix) 100 ml @ 100 mls/ hr Q1H IV Last administered on 04/04/16 00:16; Start 04/03/16 at 21:45; Stop 04/03/16 at 23:44; Status DC Water (Free Water) VOLUME: 200 ML Q6HR G-TUBE Last administered on 04/06/16 05: 30; Start 04/04/16 at 08:45 Potassium Chloride (KCl 40 Meq/30 ml Liq) 40 meq ONCE ONCE PEG Last administered on 04/04/16 10:45; Start 04/04/16 at 10:45; Stop 04/04/16 at 10:50 ; Status DC Propofol (Diprivan 200 Mg/20 ml Inj) 200 mg STK-MED ONCE IV ; Start 04/03/16 at 10:46; Stop 04/04/16 at 10:46; Status DC Phenylephrine HCl (Neosynephrine/ NS 1000 Mcg/10ml Syr) 1,000 mcg STK-MED ONCE IV ; Start 04/03/16 at 10:46; Stop 04/04/16 at 10:46; Status DC Ondansetron HCl 4 mg 4 mg STK-MED ONCE IV PUSH ; Start 04/03/16 at 10:46; Stop 04/04/16 at 10:46; Status DC Lactated Ringer's 1,000 ml @ As Directed STK-MED ONCE IV ; Start 04/03/16 at 10 :46; Stop 04/04/16 at 10:46; Status DC Pamidronate Disodium/Sodium Chloride (Aredia Inj/NS 1000 ml Inj) 1,000 ml @ 42 mls/hr ONCE ONCE IV Last administered on 04/04/16 23:37; Start 04/04/16 at 22 :00; Stop 04/05/16 at 21:48; Status DC Potassium Chloride (KCl 40 Meq/30 ml Liq) 40 meq ONCE ONCE PEG Last administered on 04/05/16 15:12; Start 04/05/16 at 12:00; Stop 04/05/16 at 12:01; Status DC A/P Assessment and Plan 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 The mass contains amorphous calcifications and appears to involve the right sternocleidomastoid muscle. The mass appears to extend into the oral cavity with diffuse enlargement of the right tonsillar pillar. Neoplastic disease in the primary consideration. 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 had CT simulation for radiation. continue with pain control. general and facial surgery following. -acute kidney injury/ hypercalcemia / hyponatremia due to dehydration- received a dose of Aradia - improving after hydration - will monitor -anemia- s/p PRBC transfusion- H/H improved- will monitor -hypokalemia; replaced- will monitor -leukocytosis- no evidence of active infection at this time- afebrile- will monitor temps and check the CBC in am. -severe malnutrition- s/p PEG placement- tube feeding and TPN initiated- anesthesiologist assistant certified consulted. -DVT prophylaxis with lovenox Minouei,Mohammadreza MD Apr 06, 2016 09:04
--- NOTE | 2016-04-06 11:57 | MB ---
cc: SKIP MOLINA MD,ROHAN TILLEY DATE OF CONSULTATION: 04/02/[address] Juan Oseguera. 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 Stage T4 possibly [id number], stage grouping IV B. CHIEF COMPLAINT Large mass on the right side of the neck. REASON FOR VISIT The patient being evaluated for possible radiotherapy treatment options. HISTORY OF PRESENT ILLNESS This is a 35-year-old male from [facility] which was noted to have according to the patient pain on one of his molars. Apparently a dentist took the molar out, it would not heal, left an ulcer. They did a biopsy and it was positive for squamous cell carcinoma. According to the patient and the family, the patient has has this for about 10 months. He has not received any radiation therapy. They showed me paper in [place]ian, it appears that the patient has received some cisplatin, 5-FU and also appears to have received one cycle of Docetaxel. It appears from the family members and the patient, that he did not respond to the therapy, and the mass has continued to increase in size. The patient has come over here to the [facility] for assistance in trying to resolve this mass. Dr. Oseguera has asked for a consult in regards to possible radiotherapy treatment options for the patient. It appears that the patient has lost weight, probably range between 20 and 30 pounds. PAST MEDICAL HISTORY As above. Otherwise no other pertinent history. The patient states that he was told that he had a kidney infection at some point. MEDICATIONS As per hospital chart include: 1. Sodium chloride. 2. Morphine sulfate. 3. Ondansetron. 4. Acetaminophen. 5. Hydromorphone. 6. Diphenhydramine. 7. Naloxone. ALLERGIES NO KNOWN DRUG ALLERGIES. FAMILY HISTORY No history of carcinoma in the family. SOCIAL HISTORY The patient denies any smoking history. ETOH intake socially but has not had any drinks for over 2 months. REVIEW OF SYSTEMS A 14-point review of systems as noted and discussed with the patient, upon review: CONSTITUTIONAL: The patient admits to weight loss and decrease of appetite. He says he feels weak. Denies any fevers or chills. ALLERGIES: Has not had allergic reaction recently. EYES: Unremarkable. ENT: The patient has pain on the right neck, has a large mass in the right neck. 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 He has to lean his head to the left side to be able to swallow. Cannot eat because of the pain, not because of difficulty swallowing. NECK: Admits to right neck masses as noted above. INTEGUMENTARY: The patient denies any itching, rashes or hives. CARDIOVASCULAR: Unremarkable. Denies any chest pain or signs or symptoms of CT or stroke. RESPIRATORY: Unremarkable. Denies any wheezing or hemoptysis. GASTROINTESTINAL: Unremarkable. Denies any rectal bleeding. GENITOURINARY: Unremarkable. MUSCULOSKELETAL: He says he has pain on the right neck. Denies any bony painful sites other than the pain on the right neck. NEUROLOGICAL: Denies any neurological deficits. No sign of stroke. PSYCHIATRIC: Has anxiety because of the diagnosis. Denies any suicidal thoughts. ENDOCRINE: Unremarkable. HEMATOLOGIC: Unremarkable. DERMATOLOGIC: Open skin area because of mass at the right neck. PHYSICAL EXAMINATION GENERAL: The patient oriented x3. Some discomfort due to the mass. He said that the pain is well-controlled. VITAL SIGNS: Stable per hospital chart. LUNGS: To auscultation bilateral lungs were clear to auscultation with appropriate ventilatory respiratory effort. HEART: Heart was regular rate and rhythm with no murmurs. NECK: Palpation of the left neck, left supraclavicular areas unremarkable. Palpation of the right neck there is large lymph node detected in the jugulodigastric area as well as posterior neck. The right supraclavicular area appears unremarkable. There is a large mass malodorous on the right neck, I did not take the bandage off. He has minimal discharge at the present time. No active bleeding. Visual examination of the oral cavity shows no signs of infection detected. The patient has lost all of the teeth on the right side of the mouth. I could see erosion to the mandible. It appears that the mass is invading the floor of mouth and extends anterior. It appears that the right side of the tongue may have some disease on it from the midportion to the anterior portion. The posterior pharyngeal wall appears to also have a mass that reaches the midline. The patient has bad dentition on the left side. The patient has limited range of motion of the tongue which makes me believe that perhaps the tongue muscles are involved. ABDOMEN: Palpation of the abdominal cavity reveals no hepatosplenomegaly, no pain elicited. EXTREMITIES: No lower extremity edema detected. No neurological deficits detected. No other positive findings. The patient is cachectic. SURGICAL PATHOLOGY Surgical pathology pending, they showed me some records from [facility] which shows that the patient had a biopsy which was positive for squamous cell carcinoma. RADIOLOGY A CT of the neck on 04/02/2016. Impression. Very large heterogeneous soft tissue mass on the right side of the face with mass involving most of the right mandible. The mass contains calcifications and appears to involve the right sternocleidomastoid muscle. The mass appears to be extending to the oral cavity with diffuse enlargement of the right tonsillar pillar. Neoplastic disease is the primary consideration. A CT of the head 04/02/2016 reviewed. 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 The patient is being evaluated for possible radiotherapy treatment options . PLAN I had a discussion with the patient in regards to his presenting condition. His uncle and his brother were in the room. I have discussed this case with Dr. Oseguera. At the present time the patient will need a medical oncology evaluation, I also recommend CT scan of the chest to be performed to rule out metastatic disease to the chest. By reviewing the CT scan it appears that the patient may has an extensive mass involving most of the oral cavity. Also on one of the images it appears that the patient may have some brain involvement as it is invading the vault of the brain. I would like to present this case to the Tumor Board for discussion of this. I advised them that I would recommend and still recommend a dental evaluation for extractions. I will have to discuss this case with medical oncology and see what approach they want me to take. I discussed with the family and the patient that I can start radiation therapy but they would have to assume the risk of having issues with possible dental extractions down the road and necrosis of the mandible, having said that, due to the fact that this patient's condition continues to deteriorate I will be willing to give him the radiation therapy without the dental evaluation and they were in agreement of assuming the risk of this treatment. I discussed treating the patient once a day or twice a day. This will depend on what type of chemotherapy the patient receives. My inclination will be to probably go ahead and do it twice a day. I discussed with them the merits of the radiation therapy, side effects, complications to include but not limited to weakness and fatigue, decreased blood counts, edema skin, necrosis skin, difficulty and pain when swallowing, esophageal strictures, lung damage, lung fibrosis, lung pneumonitis, nerve damage, spinal cord damage, bone damage and fracture, the patient also already has destruction of the bone. Decreased vision, loss of vision, change and loss of taste which could be permanent, dry mouth, which could be permanent and most likely will be. I advised him that I do not think that the radiation will take care of this mass and he will need some sort of surgical resection to remove whatever is left and have a reconstruction of the mandible. They understand that I am going to have to treat most of his mouth and most of the oral cavity if not all. This is a large mass. Part of the brain will be treated which also can cause brain necrosis, brain damage, decrease in cognitive functions. He is scheduled to have PEG tube and port placement tomorrow. At the end of the discussion they understood everything that was explained, all of their questions were answered. They were advised if I could be of any further assistance to please let me and I gave them one of my cards. I will await for medical oncology evaluation for discussion of this case. Dr. Oseguera, thank you very much for the referral of this patient and allowing me to participate in his care. Should you have any other questions or concerns, please do not hesitate to contact me. ADDENDUM All of this was discussed in [place]ian with the patient and the family. MD ERICA Paredes/IRMA /2:15 PM /11:35 AM WILY
--- NOTE | 2016-04-06 13:07 | HHI.PR ---
Subjective Subjective Notes Resting in bed Wants ice cream Objective Vitals/I&O Vital Signs Date Time Temp Pulse Resp B/P Pulse Ox O2 Delivery O2 Flow Rate FiO2 04/06/16 08:00 101 16 115/58 99 04/06/16 04:00 98.1 04/03/16 18:00 Nasal Cannula 3 Labs Laboratory Tests Test 04/06/16 06:38 HIV (1&2) Antibody NEGATIVE Date/Time Procedure Status Source Growth 04/05/16 12:45 Urine Culture - Preliminary Resulted Urine Clean Catch NO GROWTH IN 24 HOURS. 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
[2016-04-06] MEDS: ENOXAPARIN SODIUM 30 MG/0.3 ML SYRINGE SQ SCH (17:28)
[2016-04-06] MEDS: ACETAMINOPHEN 325MG/HYDROcodone 7.5MG/15ML UDC PO PRN (17:28)
[2016-04-06 17:53] LABS: AUTOMATED NEUTROPHIL # 20.3 TH/MM3 (1.8-7.7); BASOPHIL % 0.2 % (0.0-2.0); EOSINOPHIL # 0.2 TH/MM3 (0-0.4); EOSINOPHIL % 0.7 % (0.0-4.0); HEMATOCRIT 22.5 % (39.0-51.0); LYMPH % 2.9 % (9.0-44.0); LYMPHOCYTE # 0.6 TH/MM3 (1.0-4.8); MEAN CELL VOLUME 86.6 FL (80.0-100.0); MEAN CORPUSCULAR HEMOGLOBIN 30.7 PG (27.0-34.0); MEAN CORPUSCULAR HGB CONC 35.4 % (32.0-36.0); MONO % 4.5 % (0.0-8.0); NEUT % 91.7 % (16.0-70.0); PLATELET COUNT 216 TH/MM3 (150-450); RED BLOOD COUNT 2.59 MIL/MM3 (4.50-5.90); RED CELL DISTRIBUTION WIDTH 14.6 % (11.6-17.2); WHITE BLOOD COUNT 22.1 TH/MM3 (4.0-11.0)
[2016-04-06 17:54] LABS: HEMO FLAGS AUTO DIFF
[2016-04-06] MEDS ORDERED: LEVOFLOXACIN 500 MG PREMIX INJ 100 ML IV SCH (18:00)
[2016-04-06 18:47] LABS: BANDS 8 % (0-6); METAMYELOCYTES 1 % (0-1); NEUTROPHIL # MANUAL DIFF 21.2 TH/MM3 (1.8-7.7); POLYS (SEG NEUTROPHILS) 87 % (16-70); WBC DIFF SAMPLE 100
[2016-04-06 18:48] LABS: PLATELET ESTIMATE SMEAR NORMAL (NORMAL); PLATELET MORPHOLOGY NORMAL (NORMAL); SCAN/DIFF FINAL DIFF MANUAL
--- NOTE | 2016-04-06 20:48 | PD.ONC.PN ---
Subjective Subjective Remarks remains miserable and part of mandible and teeth fell out today. Objective Data Date Time Temp Pulse Resp B/P Pulse Ox O2 Delivery O2 Flow Rate FiO2 04/06/16 18:15 101.8 130 20 94/50 99 04/06/16 16:50 101.8 135 103/60 04/06/16 16:20 128 79/44 04/06/16 16:00 102.0 135 20 85/41 100 04/06/16 12:00 99.8 117 20 111/57 99 04/06/16 08:00 101 16 115/58 99 04/06/16 04:00 98.1 117 18 96/69 99 04/06/16 00:00 97.0 100 16 98/65 99 04/06/16 04/06/16 04/06/16 07:00 15:00 23:00 Intake Total 240 ml 1460 ml Output Total 700 ml Balance -700 ml 240 ml 1460 ml Result Diagram: 04/06/16 1733 04/05/16 0640 Laboratory Results Laboratory Tests Test 04/06/16 04/06/16 06:38 17:33 HIV (1&2) Antibody NEGATIVE White Blood Count 22.1 TH/MM3 Red Blood Count 2.59 MIL/MM3 Hemoglobin 8.0 GM/DL Hematocrit 22.5 % Mean Corpuscular Volume 86.6 FL Mean Corpuscular Hemoglobin 30.7 PG Mean Corpuscular Hemoglobin 35.4 % Concent Red Cell Distribution Width 14.6 % Platelet Count 216 TH/MM3 Mean Platelet Volume 6.3 FL Neutrophils (%) (Auto) 91.7 % Lymphocytes (%) (Auto) 2.9 % Monocytes (%) (Auto) 4.5 % Eosinophils (%) (Auto) 0.7 % Basophils (%) (Auto) 0.2 % Neutrophils # (Auto) 20.3 TH/MM3 Lymphocytes # (Auto) 0.6 TH/MM3 Monocytes # (Auto) 1.0 TH/MM3 Eosinophils # (Auto) 0.2 TH/MM3 Basophils # (Auto) 0.0 TH/MM3 CBC Comment AUTO DIFF Differential Total Cells 100 Counted Neutrophils % (Manual) 87 % Band Neutrophils % 8 % Lymphocytes % 2 % Monocytes % 2 % Neutrophils # (Manual) 21.2 TH/MM3 Metamyelocytes 1 % Differential Comment FINAL DIFF MANUAL Platelet Estimate NORMAL Platelet Morphology Comment NORMAL Culture Results Microbiology Date/Time Procedure Status Source Growth 04/05/16 12:45 Urine Culture - Preliminary Resulted Urine Clean Catch NO GROWTH IN 24 HOURS. 04/06/16 17:33 Aerobic Blood Culture Received Blood Peripheral Pending 04/06/16 17:33 Anaerobic Blood Culture Received Blood Peripheral Pending Administered Medications Medications (Trade) Dose Ordered Sig/Sara Route PRN Reason Start Time Stop Time Status Last Admin Dose Admin Morphine Sulfate (Morphine Inj) 2 mg Q2H PRN IV BREAKTHROUGH PAIN 04/02/16 01:45 04/02/16 02:38 Ondansetron HCl (Zofran Inj) 4 mg Q6H PRN IV PUSH NAUSEA 04/02/16 01:45 04/02/16 02:38 IV Flush (NS Flush) 2 ml UNSCH PRN IVF FLUSH AFTER USING IV ACCESS 04/02/16 08:15 04/04/16 02:03 IV Flush (NS Flush) 2 ml BID IVF 04/02/16 09:00 04/04/16 09:00 Enoxaparin Sodium (Lovenox Inj) 30 mg Q24H SQ 04/04/16 15:30 04/06/16 17:28 Acetaminophen/ Hydrocodone Bitart 15 ml 15 ml Q4H PRN PO PAIN SCALE 6-10 04/02/16 09:00 04/06/16 17:28 Sodium Chloride 11 meq/Sodium Acetate 59 meq/ Potassium Chloride 40 meq/ Magnesium Chloride 10 meq/ Multivitamins 10 ml/Folic Acid 1 mg/Amino Acids/ Dextrose 2,067.5261 ml @ 83 mls/hr Q24H IV-CENTRAL 04/03/16 20:00 04/05/16 22:34 Fat Emulsion Intravenous (Liposyn Iii 20% Inj) 250 ml @ 10 mls/hr Q24H IV-CENTRAL 04/03/16 20:00 04/05/16 22:33 Water (Free Water) VOLUME: 200 ML Q6HR G-TUBE 04/04/16 08:45 04/06/16 17:28 Objective Remarks GENERAL: remains very ill SKIN: no change control specialist face. HEAD: Normocephalic. EYES: No scleral icterus. No injection or drainage. NECK: massive tumor right neck. LYMPHATIC: massive tumor right neck. . CARDIOVASCULAR: Regular rate and rhythm without murmurs. RESPIRATORY: Breath sounds equal bilaterally. No accessory muscle use. GASTROINTESTINAL: Abdomen soft, non-tender, nondistended. has g tube. EXTREMITIES: No cyanosis, or edema. MUSCULOSKELETAL: muscle atrophy. NEUROLOGICAL: generalized weakness. PSYCHIATRIC: awake and can understand conversation Assessment/Plan Assessment 1: HIV negative and HPV stain negative. prognosis worse by being HPV negative and given current situation I can see no way out. I communicated some of this to his brother who understands but the language barrier remains a major problem. I had help from the medical student with translation. I can not begin chemotherapy with radiation until the fevers are resolved. The addition of chemotherapy adds a SMALL BENEFIT which will not likely significantly influence outcome. I am going to ask palliative care to see with German speaking nurse/md as there will be difficult decisions. I do not find any role for CPR if and when things go bad. Yovany Lezama MD Apr 06, 2016 20:48
[2016-04-06] MEDS: FAT EMULSION 20% INJ 250 ML (@10 mls/hr) IV-CENTRAL SCH (22:26)
[2016-04-06] MEDS: SODIUM CHLORIDE 23.4% INJ 11 MEQ, SODIUM ACETATE INJ 59 MEQ, POTASSIUM CHLORIDE INJ 40 ... IV-CENTRAL SCH ×7 (22:27)
[2016-04-07] VITALS (11 sets, daily range): BP systolic 83–105; BP diastolic 46–63; PULSE 105–131; RESP 16–20; TEMP 98–101.5; O2SAT 96–100
[2016-04-07] MEDS ORDERED: SODIUM CHLOR 0.9% 1000 ML INJ 1,000 ML IV ONE (01:00)
[2016-04-07] MEDS: ACETAMINOPHEN 325MG/HYDROcodone 7.5MG/15ML UDC PO PRN ×2 (01:44→21:31)
[2016-04-07] MEDS: ACETAMINOPHEN 325 MG TAB PO PRN ×2 (01:50→21:31)
[2016-04-07] MEDS ORDERED: METOPROLOL TARTRATE 25 MG TAB PO ONE (03:15)
[2016-04-07] MEDS: FREE WATER G-TUBE SCH ×5 (06:00→22:29)
--- NOTE | 2016-04-07 07:15 | MP ---
cc: HAYDEN WOODS M.D. DATE OF SURGERY: 04/03/2016 PREOPERATIVE DIAGNOSIS 1. Large right facial tumor. 2. Extreme malnutrition and dehydration. POSTOPERATIVE DIAGNOSIS 1. Large right facial tumor. 2. Extreme malnutrition and dehydration. PROCEDURE PERFORMED Left subclavian central line, triple-lumen. SURGEON Hayden Woods ANESTHESIA General endotracheal. COMPLICATIONS None. INDICATION FOR PROCEDURE Mr. Edouard Sahu is a pleasant 35-year-old [facility] male who has a large right facial tumor. He is going to the operating room for feeding tube placement and biopsy of the facial mass and removal of his lower teeth in preparation for radiation treatment. He required central line for TPN due to extreme malnutrition and dehydration. Risks and benefits were discussed with his family and they were agreeable. After Dr. Johnson completed his PEG tube placement the anterior chest and neck was prepped and draped in standard surgical fashion. The right subclavian vein was then accessed without difficulty using an 18-gauge needle. A guidewire was advanced and followed under fluoroscopy into the vena cava toward the right atrium. An introducer was then placed over the guidewire in order to dilate the tract. A triple-lumen central line was then advanced to about 22 cm. It was confirmed with fluoroscopy to be adjacent to the right atrium. It was then sewn in using a 2-0 silk suture. Sterile dressings were applied. All three ports were tested and found to have excellent blood return and easy ability to flush. The patient tolerated the procedure without any instability. Chest x-ray will be obtained in the recovery room. The patient was then left in the care of Dr. Shahzad Craig who is going to biopsy the right facial mass and extract the patient's lower teeth. MD RAMBO Massey/FAITH /5:34 PM /7:04 AM
[2016-04-07 07:16] LABS: AUTOMATED NEUTROPHIL # 19.6 TH/MM3 (1.8-7.7); BASOPHIL % 0.2 % (0.0-2.0); EOSINOPHIL # 0.2 TH/MM3 (0-0.4); EOSINOPHIL % 1.1 % (0.0-4.0); LYMPH % 5.4 % (9.0-44.0); LYMPHOCYTE # 1.2 TH/MM3 (1.0-4.8); MEAN CELL VOLUME 86.7 FL (80.0-100.0); MEAN CORPUSCULAR HEMOGLOBIN 29.8 PG (27.0-34.0); MEAN CORPUSCULAR HGB CONC 34.3 % (32.0-36.0); MONO % 7.8 % (0.0-8.0); NEUT % 85.5 % (16.0-70.0); PLATELET COUNT 198 TH/MM3 (150-450); RED BLOOD COUNT 2.36 MIL/MM3 (4.50-5.90); RED CELL DISTRIBUTION WIDTH 14.4 % (11.6-17.2); WHITE BLOOD COUNT 22.9 TH/MM3 (4.0-11.0)
[2016-04-07 07:21] LABS: HEMO FLAGS AUTO DIFF
[2016-04-07 07:27] LABS: HEMATOCRIT 20.5 % (39.0-51.0)
[2016-04-07 07:29] LABS: BICARBONATE 26.4 MEQ/L (21.0-32.0)
[2016-04-07] MEDS: D5-NS + KCL 20 MEQ INJ 1,000 ML IV SCH (07:45)
[2016-04-07 07:46] LABS: POTASSIUM 2.3 MEQ/L (3.5-5.1)
[2016-04-07] MEDS ORDERED: POTASSIUM CL 40 MEQ/30 ML LIQ UDC PO ONE (08:15)
[2016-04-07] MEDS: SODIUM CHLORIDE 0.9% FLUSH 5 ML FLUSH IVF SCH ×2 (08:31→21:39)
[2016-04-07 08:44] LABS: BANDS 7 % (0-6); BASOPHILS 1 % (0-2); METAMYELOCYTES 3 % (0-1); MYELOCYTES 1 % (0-0); NEUTROPHIL # MANUAL DIFF 21.1 TH/MM3 (1.8-7.7); POLYS (SEG NEUTROPHILS) 81 % (16-70); WBC DIFF SAMPLE 100
[2016-04-07 08:45] LABS: PLATELET ESTIMATE SMEAR NORMAL (NORMAL); PLATELET MORPHOLOGY NORMAL (NORMAL); SCAN/DIFF FINAL DIFF MANUAL
[2016-04-07] MEDS ORDERED: CEFEPIME INJ 2,000 MG in SODIUM CHLORIDE 0.9% INJ 100 ML IV SCH (09:00)
--- NOTE | 2016-04-07 09:38 | PD.ONC.PN ---
Subjective Subjective Remarks Tmax 101.5 overnight. Patient with brother at bedside. He denies pain. Nurse is concerned about patient being febrile with tachycardia and hypotension. Objective Data Date Time Temp Pulse Resp B/P Pulse Ox O2 Delivery O2 Flow Rate FiO2 04/07/16 08:50 118 94/55 04/07/16 08:00 99.5 106 16 92/52 96 04/07/16 04:00 100.8 107 17 97/56 96 04/07/16 03:07 20 04/07/16 03:07 20 04/07/16 00:00 101.5 131 19 103/63 99 04/06/16 21:00 128 04/06/16 20:00 100.9 125 17 96/55 95 04/06/16 18:15 101.8 130 20 94/50 99 04/06/16 16:50 101.8 135 103/60 04/06/16 16:20 128 79/44 04/06/16 16:00 102.0 135 20 85/41 100 04/06/16 12:00 99.8 117 20 111/57 99 04/07/16 04/07/16 04/07/16 07:00 15:00 23:00 Intake Total 689 ml 681 ml Balance 689 ml 681 ml Result Diagram: 04/07/1624 04/07/16523 Laboratory Results Laboratory Tests Test 04/06/16 04/07/16 17:33 05:24 White Blood Count 22.1 TH/MM3 22.9 TH/MM3 Red Blood Count 2.59 MIL/MM3 2.36 MIL/MM3 Hemoglobin 8.0 GM/DL 7.0 GM/DL Hematocrit 22.5 % 20.5 % Mean Corpuscular Volume 86.6 FL 86.7 FL Mean Corpuscular Hemoglobin 30.7 PG 29.8 PG Mean Corpuscular Hemoglobin 35.4 % 34.3 % Concent Red Cell Distribution Width 14.6 % 14.4 % Platelet Count 216 TH/MM3 198 TH/MM3 Mean Platelet Volume 6.3 FL 6.4 FL Neutrophils (%) (Auto) 91.7 % 85.5 % Lymphocytes (%) (Auto) 2.9 % 5.4 % Monocytes (%) (Auto) 4.5 % 7.8 % Eosinophils (%) (Auto) 0.7 % 1.1 % Basophils (%) (Auto) 0.2 % 0.2 % Neutrophils # (Auto) 20.3 TH/MM3 19.6 TH/MM3 Lymphocytes # (Auto) 0.6 TH/MM3 1.2 TH/MM3 Monocytes # (Auto) 1.0 TH/MM3 1.8 TH/MM3 Eosinophils # (Auto) 0.2 TH/MM3 0.2 TH/MM3 Basophils # (Auto) 0.0 TH/MM3 0.0 TH/MM3 CBC Comment AUTO DIFF AUTO DIFF Differential Total Cells 100 100 Counted Neutrophils % (Manual) 87 % 81 % Band Neutrophils % 8 % 7 % Lymphocytes % 2 % 2 % Monocytes % 2 % 5 % Neutrophils # (Manual) 21.2 TH/MM3 21.1 TH/MM3 Metamyelocytes 1 % 3 % Differential Comment FINAL DIFF FINAL DIFF MANUAL MANUAL Platelet Estimate NORMAL NORMAL Platelet Morphology Comment NORMAL NORMAL Basophils % 1 % Myelocytes 1 % Sodium Level 133 MEQ/L Potassium Level 2.3 MEQ/L Chloride Level 97 MEQ/L Carbon Dioxide Level 26.4 MEQ/L Anion Gap 10 MEQ/L Blood Urea Nitrogen 19 MG/DL Creatinine 1.05 MG/DL Estimat Glomerular Filtration 80 ML/MIN Rate Random Glucose 113 MG/DL Calcium Level 9.0 MG/DL Culture Results Microbiology Date/Time Procedure Status Source Growth 04/05/16 12:45 Urine Culture - Final Complete Urine Clean Catch NO GROWTH IN 48 HOURS. 04/06/16 17:33 Aerobic Blood Culture Received Blood Peripheral Pending 04/06/16 17:33 Anaerobic Blood Culture Received Blood Peripheral Pending Administered Medications Medications (Trade) Dose Ordered Sig/Sara Route PRN Reason Start Time Stop Time Status Last Admin Dose Admin Morphine Sulfate (Morphine Inj) 2 mg Q2H PRN IV BREAKTHROUGH PAIN 04/02/16 01:45 04/02/16 02:38 Ondansetron HCl (Zofran Inj) 4 mg Q6H PRN IV PUSH NAUSEA 04/02/16 01:45 04/02/16 02:38 IV Flush (NS Flush) 2 ml UNSCH PRN IVF FLUSH AFTER USING IV ACCESS 04/02/16 08:15 04/04/16 02:03 IV Flush (NS Flush) 2 ml BID IVF 04/02/16 09:00 04/07/16 08:31 Enoxaparin Sodium (Lovenox Inj) 30 mg Q24H SQ 04/04/16 15:30 04/06/16 17:28 Acetaminophen/ Hydrocodone Bitart 15 ml 15 ml Q4H PRN PO PAIN SCALE 6-10 04/02/16 09:00 04/07/16 01:44 Sodium Chloride 11 meq/Sodium Acetate 59 meq/ Potassium Chloride 40 meq/ Magnesium Chloride 10 meq/ Multivitamins 10 ml/Folic Acid 1 mg/Amino Acids/ Dextrose 2,067.5261 ml @ 83 mls/hr Q24H IV-CENTRAL 04/03/16 20:00 04/06/16 22:27 Fat Emulsion Intravenous (Liposyn Iii 20% Inj) 250 ml @ 10 mls/hr Q24H IV-CENTRAL 04/03/16 20:00 04/06/16 22:26 Water (Free Water) VOLUME: 200 ML Q6HR G-TUBE 04/04/16 08:45 04/07/16 06:00 Acetaminophen 650 mg 650 mg Q4H PRN PO FEVER OVER 101.0 04/07/16 01:45 04/07/16 01:50 Potassium Chloride/Dextrose/ Sod Cl (D5-NS + KCl 20 Meq Inj) 1,000 ml @ 42 mls/hr [id number] IV 04/07/16 07:45 04/07/16 07:45 Objective Remarks GENERAL: Young man with severe deformity/tumor right face sitting up in bed watching TV. SKIN: no change control analyst face. HEAD: Normocephalic. EYES: No injection or drainage. NECK: massive tumor right neck. LYMPHATIC: massive tumor right neck. . CARDIOVASCULAR: Regular rate and rhythm RESPIRATORY: Breath sounds equal bilaterally. No accessory muscle use. GASTROINTESTINAL: Abdomen soft, G-tube in place, receiving TF. EXTREMITIES: No cyanosis. extremities warm and well perfused. MUSCULOSKELETAL: muscle atrophy. NEUROLOGICAL: awake and alert. 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 He is now febrile and tachycardic, likely septic. Plan 1. start Zosyn for likely sepsis. Patient does not appear to be in septic shock. extremities warm and well perfused, patient appears relatively well. would prefer to wait to transfer to [facility] (if at all) after seen by palliative care. He has a terminal condition and intubation or CPR will not be of assistance. 2. await palliative care. they have been consulted and will see patient today. 3. agree with 2 units pRBC. Attending Statement The exam, history, and the medical decision-making described in the above note were completed with the assistance of the mid-level provider. I reviewed and agree with the findings presented. I attest that I had a [id number] encounter with the patient on the same day, and personally performed and documented my assessment and findings in the medical record. patient seen this am and very ill but clinically not in shock. I requested change in antibiotics, iv fluids and palliative care consult with someone who can speak Lithuanian and all have been done. I have spoken with Dr. Beauileu and neither myself, Dr Beaulieu, or Dr. Oseguera feel he can be cured with chemotherapy/ radiation and it is not even clear that we will be able to proceed presently. He needs to be stable. Will reevaluate next week but at the moment he needs, blood, fluids and antibiotics. Hospice is appropriate and CPR will simply not succeed in saving him or prolonging life in a meaningful way. Sirisha Cotton Apr 07, 2016 09:38 Yvoany Lezama MD Apr 07, 2016 20:07
--- NOTE | 2016-04-07 11:03 | HHI.PR ---
Subjective Remarks in no distress. pain is fairly controlled. T max 102. Objective Vitals Vital Signs Date Time Temp Pulse Resp B/P Pulse Ox O2 Delivery O2 Flow Rate FiO2 04/07/16 10:41 110 04/07/16 08:50 118 94/55 04/07/16 08:00 99.5 106 16 92/52 96 04/07/16 04:00 100.8 107 17 97/56 96 04/07/16 03:07 20 04/07/16 03:07 20 04/07/16 00:00 101.5 131 19 103/63 99 04/06/16 21:00 128 04/06/16 20:00 100.9 125 17 96/55 95 04/06/16 18:15 101.8 130 20 94/50 99 04/06/16 16:50 101.8 135 103/60 04/06/16 16:20 128 79/44 04/06/16 16:00 102.0 135 20 85/41 100 04/06/16 12:00 99.8 117 20 111/57 99 I/O 04/06/16 04/06/16 04/06/16 04/07/16 04/07/16 04/07/16 07:00 15:00 23:00 07:00 15:00 23:00 Intake Total 240 ml 1460 ml 689 ml 681 ml Output Total 700 ml 300 ml Balance -700 ml 240 ml 1160 ml 689 ml 681 ml Intake Oral 240 ml 0 ml IV Total 1460 ml 689 ml 681 ml Output Urine Total 700 ml 300 ml # Bowel Movements 0 Result Diagram: 04/07/16 0524 04/07/16 0524 Imaging Last Impressions Chest X-Ray 04/03/16 0000 Signed Impressions: Service Date/Time: Sunday, April 03, 2016 16:42 - CONCLUSION: Left subclavian venous catheter positioned in the superior vena cava with no pneumothorax Yaakov Montaño MD Neck CT 04/02/16 0000 Signed Impressions: Service Date/Time: Saturday, April 02, 2016 11:54 - CONCLUSION: Very large heterogeneous soft tissue mass along the right side of the face with gross destruction involving most of the right mandible. The mass contains amorphous calcifications and appears to involve the right sternocleidomastoid muscle. The mass appears to extend into the oral cavity with diffuse enlargement of the right tonsillar pillar. Neoplastic disease in the primary consideration. Niall Corrales MD Multiplanar Reconstruction 04/02/16 0000 Signed Impressions: Service Date/Time: Saturday, April 02, 2016 11:54 - CONCLUSION: 3-D reconstructive images demonstrating destruction involving most the right side of the mandible. Niall Corrales MD Head CT 04/02/16 0000 Signed Impressions: Service Date/Time: Saturday, April 02, 2016 11:54 - CONCLUSION: 1. Unremarkable CT scan of the brain 2. Large abnormal soft tissue mass with calcifications along the right side of the face. Niall Corrales MD Objective Remarks GENERAL: ill looking but in no acute distress HEENT; swollen right face- covered with clean dressing. CARDIOVASCULAR: Regular rate and regular rhythm without murmurs, gallops, or rubs. RESPIRATORY: Clear to auscultation. Breath sounds equal bilaterally. No wheezes , rales, or rhonchi. GASTROINTESTINAL: Abdomen soft, non-tender, nondistended. Normal, active bowel sounds MUSCULOSKELETAL: Extremities without clubbing, cyanosis, or edema. NEURO: Alert & Oriented x4 to person, place, time, situation. Moves all ext x4 Procedures central line placement PEG placement bone biopsy teeth extraction Medications and IVs Current Medications Sodium Chloride (NS 1000 ml Inj) 1,000 ml @ 75 mls/hr [id number] IV Last administered on 04/02/16 02:38; Start 04/02/16 at 01:45; Stop 04/02/16 at 08:25 ; Status DC Morphine Sulfate (Morphine Inj) 2 mg Q2H PRN IV BREAKTHROUGH PAIN Last administered on 04/02/16 02:38; Start 04/02/16 at 01:45 Ondansetron HCl 4 mg 4 mg Q6H PRN IV PUSH NAUSEA Last administered on 02:38; Start 04/02/16 at 01:45 Sodium Chloride 500 ml @ 0 mls/hr BOLUS ONCE IV Last administered on 04:00; Start 04/02/16 at 04:00; Stop 04/02/16 at 04:01; Status DC Potassium Chloride/Dextrose/ Sod Cl (D5-NS + KCl 20 Meq Inj) 1,000 ml @ 125 mls /hr Q8H IV Last administered on 04/03/16 11:51; Start 04/02/16 at 09:00; Stop 04/04/16 at 08:51; Status DC IV Flush (NS Flush) 2 ml UNSCH PRN IVF FLUSH AFTER USING IV ACCESS Last administered on 04/04/16 02:03; Start 04/02/16 at 08:15 IV Flush (NS Flush) 2 ml BID IVF Last administered on 04/07/16 08:31; Start at 09:00 Acetaminophen (Tylenol) 650 mg Q4H PRN PO PAIN SCALE 1 TO 10; Start 04/02/16 at 09:00; Stop 04/02/16 at 09:00; Status DC Ibuprofen (Motrin) 600 mg Q4H PRN PO PAIN SCALE 1 TO 5; Start 04/02/16 at 08:15 ; Stop 04/02/16 at 08:49; Status DC Hydromorphone HCl (Dilaudid Pf Inj) 0.5 mg Q2H PRN IV PAIN SCALE 6 TO 10; Start 04/02/16 at 08:15; Stop 04/02/16 at 08:49; Status DC Diphenhydramine HCl (Benadryl) 25 mg Q6H PRN PO ITCHING; Start 04/02/16 at 09: 00 Miscellaneous Information (Post-op Orders (for Pharmacy)) STAT ONCE XX ; Start 04/02/16 at 08:15; Stop 04/03/16 at 06:06; Status DC Miscellaneous Information 1 ONCE ONCE XX ; Start 04/02/16 at 08:15; Stop at 06:06; Status DC Enoxaparin Sodium (Lovenox Inj) 30 mg Q24H SQ Last administered on 04/06/16 17: 28; Start 04/04/16 at 15:30 Naloxone HCl (Narcan Inj) 0.4 mg UNSCH PRN IV RESPIRATORY RATE LESS THAN 10; Start 04/02/16 at 08:15; Stop 04/02/16 at 08:49; Status DC Diphenhydramine HCl (Benadryl Inj) 25 mg Q6H PRN IV ITCHING; Start 04/02/16 at 09:00; Stop 04/02/16 at 09:00; Status DC TOOL SPECIALIST Dosage Infused (Pha) 1 Q8HR .XX ; Start 04/02/16 at 09:00; Stop 04/02/16 at 09:00; Status DC Acetaminophen/ Hydrocodone Bitart (Hycet 325-7.5 Mg Liq) 15 ml Q4H PRN PO PAIN SCALE 6-10 Last administered on 04/07/16 01:44; Start 04/02/16 at 09:00 Ibuprofen (Motrin Liq) 600 mg Q4H PRN PO PAIN SCALE 1-5; Start 04/02/16 at 09: 00; Stop 04/02/16 at 09:02; Status DC Ibuprofen 600 mg 600 mg Q4H PRN PO PAIN SCALE 1-5; Start 04/02/16 at 09:02 Sodium Chloride (NS 500 ml Inj) 500 ml @ 30 mls/hr [id number] IV ; Start 04/03/16 at 03:15; Stop 04/04/16 at 03:14; Status DC Bupivacaine HCl/ Epinephrine Bitart (Sensorcaine-Epinephrine Pf 0.25% Inj) 20 ml STK-MED ONCE .ROUTE ; Start 04/03/16 at 13:46; Stop 04/03/16 at 13:47; Status DC Chlorhexidine Gluconate (Peridex 0.12% Liq) 60 ml STK-MED ONCE .ROUTE ; Start at 13:46; Stop 04/03/16 at 13:47; Status DC Heparin Sodium (Porcine) (Heparin Inj) 10,000 units STK-MED ONCE .ROUTE ; Start 04/03/16 at 13:46; Stop 04/03/16 at 13:47; Status DC Heparin Sodium (Porcine) (Heparin Inj) 10,000 units STK-MED ONCE .ROUTE ; Start 04/03/16 at 13:46; Stop 04/03/16 at 13:47; Status DC Cefazolin Sodium (Ancef Inj) 1,000 mg STK-MED ONCE IV Last administered on 04/03t 14:43; Start 04/03/16 at 14:43; Stop 04/03/16 at 15:03; Status DC Lidocaine/ Epinephrine (Xylocaine-Epi 1%-1:100,000 Inj) 50 ml STK-MED ONCE .ROUTE ; Start 04/03/16 at 15:35; Stop 04/03/16 at 15:36; Status DC Lidocaine/ Epinephrine (Xylocaine-Epi 2%-1:100,000 Inj) 30 ml STK-MED ONCE .ROUTE Last administered on 04/03/16 16:01; Start 04/03/16 at 15:35; Stop at 15:36; Status DC Microfibriller Collagen Hemostat (Avitene Powder Pack) 1 gm STK-MED ONCE .ROUTE ; Start 04/03/16 at 15:41; Stop 04/03/16 at 15:42; Status DC Fentanyl Citrate 250 mcg 250 mcg STK-MED ONCE .ROUTE ; Start 04/03/16 at 16:34; Stop 04/03/16 at 16:35; Status DC Sodium Chloride 11 meq/Sodium Acetate 59 meq/ Potassium Chloride 40 meq/ Magnesium Chloride 10 meq/ Multivitamins 10 ml/Folic Acid 1 mg/Amino Acids/ Dextrose 2,067.5261 ml @ 83 mls/hr Q24H IV-CENTRAL Last administered on 22:27; Start 04/03/16 at 20:00 Fat Emulsion Intravenous (Liposyn Iii 20% Inj) 250 ml @ 10 mls/hr Q24H IV- CENTRAL Last administered on 04/06/16 22:26; Start 04/03/16 at 20:00 Morphine Sulfate (*morphine INJ PERIprocedure ONLY) 8 mg STK-MED ONCE .ROUTE Last administered on 04/03/16 17:22; Start 04/03/16 at 17:22; Stop 04/03/16 at 17:23; Status DC Miscellaneous Information ALL NURSING DEPARTME... UNSCH PRN XX SEE LABEL COMMENTS; Start 04/03/16 at 16:28; Stop 04/04/16 at 16:27; Status DC Potassium Chloride 100 ml @ 50 mls/hr Q2H IV Last administered on 04/04/16 01 :52; Start 04/03/16 at 21:45; Stop 04/04/16 at 01:44; Status DC Magnesium Sulfate/ Dextrose (Magnesium Sulfate 1 Gm Premix) 100 ml @ 100 mls/ hr Q1H IV Last administered on 04/04/16 00:16; Start 04/03/16 at 21:45; Stop 04/03/16 at 23:44; Status DC Water (Free Water) VOLUME: 200 ML Q6HR G-TUBE Last administered on 04/07/16 06: 00; Start 04/04/16 at 08:45 Potassium Chloride (KCl 40 Meq/30 ml Liq) 40 meq ONCE ONCE PEG Last administered on 04/04/16 10:45; Start 04/04/16 at 10:45; Stop 04/04/16 at 10:50 ; Status DC Propofol (Diprivan 200 Mg/20 ml Inj) 200 mg STK-MED ONCE IV ; Start 04/03/16 at 10:46; Stop 04/04/16 at 10:46; Status DC Phenylephrine HCl (Neosynephrine/ NS 1000 Mcg/10ml Syr) 1,000 mcg STK-MED ONCE IV ; Start 04/03/16 at 10:46; Stop 04/04/16 at 10:46; Status DC Ondansetron HCl 4 mg 4 mg STK-MED ONCE IV PUSH ; Start 04/03/16 at 10:46; Stop 04/04/16 at 10:46; Status DC Lactated Ringer's 1,000 ml @ As Directed STK-MED ONCE IV ; Start 04/03/16 at 10 :46; Stop 04/04/16 at 10:46; Status DC Pamidronate Disodium/Sodium Chloride (Aredia Inj/NS 1000 ml Inj) 1,000 ml @ 42 mls/hr ONCE ONCE IV Last administered on 04/04/16 23:37; Start 04/04/16 at 22 :00; Stop 04/05/16 at 21:48; Status DC Potassium Chloride 40 meq 40 meq ONCE ONCE PEG Last administered on 04/05/16 15:12; Start 04/05/16 at 12:00; Stop 04/05/16 at 12:01; Status DC Levofloxacin/ Dextrose 100 ml @ 100 mls/hr Q24H IV Last administered on 22:27; Start 04/06/16 at 18:00; Stop 04/07/16 at 09:06; Status DC Sodium Chloride (NS 1000 ml Inj) 1,000 ml @ 0 mls/hr BOLUS ONCE IV Last administered on 04/07/16 01:00; Start 04/07/16 at 01:00; Stop 04/07/16 at 01:01; Status DC Acetaminophen (Tylenol) 650 mg Q4H PRN PO FEVER OVER 101.0 Last administered on 04/07/16 01:50; Start 04/07/16 at 01:45 Metoprolol Tartrate 25 mg 25 mg ONCE ONCE PO Last administered on 04/07/16 03: 16; Start 04/07/16 at 03:15; Stop 04/07/16 at 03:16; Status DC Potassium Chloride/Dextrose/ Sod Cl (D5-NS + KCl 20 Meq Inj) 1,000 ml @ 42 mls/ hr [id number] IV Last administered on 04/07/16 07:45; Start 04/07/16 at 07:45 Potassium Chloride 40 meq 40 meq ONCE ONCE PO Last administered on 04/07/16 08 :15; Start 04/07/16 at 08:15; Stop 04/07/16 at 08:18; Status DC Cefepime HCl 2000 mg/Sodium Chloride 100 ml @ 200 mls/hr Q12H IV Last administered on 04/07/16 09:00; Start 04/07/16 at 09:00; Stop 04/07/16 at 09:07; Status DC Piperacillin Sod/ Tazobactam Sod (Zosyn 3.375 Gm Premix) 50 ml @ 100 mls/hr Q6H IV ; Start 04/07/16 at 11:00 A/P Assessment and Plan 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 The mass contains amorphous calcifications and appears to involve the right sternocleidomastoid muscle. The mass appears to extend into the oral cavity with diffuse enlargement of the right tonsillar pillar. 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 had CT simulation for radiation. continue with pain control. general and facial surgery following. -sepsis with possible right facial wound as the source started on Zosyn- blood cultures obtained- will monitor the temps- CBC in am -acute kidney injury/ hypercalcemia / hyponatremia due to dehydration- received a dose of Aradia - improved - will monitor -anemia- with recurrent drop in H/H will transfuse with PRBC and monitor H/H- -hypokalemia;will replace- check magnesium level. -severe malnutrition- s/p PEG placement- tube feeding and TPN initiated- surgical lead consulted. -DVT prophylaxis with lovenox patient is ill looking. palliative care consulted. Meredith Acosta MD Apr 07, 2016 11:03
--- NOTE | 2016-04-07 11:45 | HHI.PR ---
Subjective Subjective Notes feels ok, no complaints, marcus some sips Objective Vitals/I&O Vital Signs Date Time Temp Pulse Resp B/P Pulse Ox O2 Delivery O2 Flow Rate FiO2 04/07/16 10:41 110 04/07/16 08:50 94/55 04/07/16 08:00 99.5 16 96 04/03/16 18:00 Nasal Cannula 3 Labs Laboratory Tests Test 04/06/16 04/07/16 04/07/16 17:33 05:24 08:25 White Blood Count 22.1 22.9 Red Blood Count 2.59 2.36 Hemoglobin 8.0 7.0 Hematocrit 22.5 20.5 Mean Corpuscular Volume 86.6 86.7 Mean Corpuscular Hemoglobin 30.7 29.8 Mean Corpuscular Hemoglobin 35.4 34.3 Concent Red Cell Distribution Width 14.6 14.4 Platelet Count 216 198 Mean Platelet Volume 6.3 6.4 Neutrophils (%) (Auto) 91.7 85.5 Lymphocytes (%) (Auto) 2.9 5.4 Monocytes (%) (Auto) 4.5 7.8 Eosinophils (%) (Auto) 0.7 1.1 Basophils (%) (Auto) 0.2 0.2 Neutrophils # (Auto) 20.3 19.6 Lymphocytes # (Auto) 0.6 1.2 Monocytes # (Auto) 1.0 1.8 Eosinophils # (Auto) 0.2 0.2 Basophils # (Auto) 0.0 0.0 CBC Comment AUTO DIFF AUTO DIFF Differential Total Cells 100 100 Counted Neutrophils % (Manual) 87 81 Band Neutrophils % 8 7 Lymphocytes % 2 2 Monocytes % 2 5 Neutrophils # (Manual) 21.2 21.1 Metamyelocytes 1 3 Differential Comment FINAL DIFF FINAL DIFF MANUAL MANUAL Platelet Estimate NORMAL NORMAL Platelet Morphology Comment NORMAL NORMAL Basophils % 1 Myelocytes 1 Sodium Level 133 Potassium Level 2.3 Chloride Level 97 Carbon Dioxide Level 26.4 Anion Gap 10 Blood Urea Nitrogen 19 Creatinine 1.05 Estimat Glomerular Filtration 80 Rate Random Glucose 113 Calcium Level 9.0 Blood Type O POSITIVE Antibody Screen NEGATIVE Date/Time Procedure Status Source Growth 04/06/16 17:33 Aerobic Blood Culture - Preliminary Resulted Blood Peripheral NO GROWTH IN 1 DAY 04/06/16 17:33 Anaerobic Blood Culture - Preliminary Resulted Blood Peripheral NO GROWTH IN 1 DAY 04/05/16 12:45 Urine Culture - Final Complete Urine Clean Catch NO GROWTH IN 48 HOURS. 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 We do not feel transfer to [facility], intubation, or pressors are indicated due to his terminal condition. Supportive care only. Palliative care at bedside. - Palliative radiation and/or surgery will depend on patient's clinical condition. - 2u PRBC I ATTEST AND CERTIFY THAT I PERSONALLY WENT IN THE PATIENT'S ROOM AND EXAMINED THEM. I REVIEWED THE EMR WITH THE ICT ANALYST AND ADVISED HER ON THE CARE PLAN. SHE DOCUMENTED THE VISIT AND ENTERED THE ORDERS IN THE EMR UNDER MY DIRECTION. HAYDEN OSEGUERA MD FACS Hayden Oseguera MD Apr 07, 2016 11:45
[2016-04-07] MEDS: PIPERACIL-TAZO 3.375 GM PREMIX 50 ML IV SCH ×3 (12:12→22:29)
[2016-04-07 12:34] LABS: MAGNESIUM 1.1 MG/DL (1.5-2.5)
[2016-04-07] MEDS ORDERED: POTASSIUM CL 40 MEQ/30 ML LIQ UDC PEG ONE (13:15)
[2016-04-07] MEDS ORDERED: MAGNESIUM SULFATE 1 GM PREMIX 100 ML IV ONE (13:15)
[2016-04-07] MEDS: ENOXAPARIN SODIUM 30 MG/0.3 ML SYRINGE SQ SCH (15:29)
--- NOTE | 2016-04-07 15:39 | PD.CONS ---
Consult Service Palliative Care Consult Requested By Dr. Yovany Lezama MD. Primary Care Physician No Primary Care Physician Reason for Consultation a. To assist with evaluation and management of symptoms including: jaw pain and debility. b. To assist medical decision maker(s) with: better understanding of current medical conditions; weighing benefits/burdens of medical treatment options; making medical treatment decisions. HPI History of Present Illness Mr. Ribera is a 35 y/o male with no significant prior medical history who was admitted on 04/02/16 for treatment of facial mass. Patient unable to provide a medical history secondary to clinical condition, brother at bedside providing information. No asset protection officer used or needed as patient, brother and myself speak fluent [place]. Brother tells me that facial mass was first noticed in June,, after patient had a dental extraction. Swelling continued to progress prompting patient to seek medical care. After further diagnostic testing, patient was diagnosed with squamous cell carcinoma and received 1 cycle of chemotherapy but was unable to continue secondary to cardiac side effects. Brother tells me that patient was told there was nothing else that could be done and was sent home. Patient continue deteriorating as he was unable to eat or drink. Patient was brought from [facility] to [facility] for treatment. 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 CT of neck on 04/02/16 showing a large right-sided abnormal soft tissue mass measuring 14.3 x 5.9 x 7.5 cm. not currently a surgical candidate. PEG tube placed on 04/03/16. Clinical course has been complicated by fever and tachycardia likely secondary to sepsis. Palliative care has been consulted for clarification of goals of care in the setting of patient's poor prognosis. Patient seen in his room. He was laying in bed in no acute distress. Briefly opening eyes and following some commands. Brother at bedside. . Function/Cognitive Trajectory No history of cognitive decline. Independent living prior to this event. Assistance required with ADLs. . Review of Systems ROS Limitations: Clinical Condition Constitutional: COMPLAINS OF: Weight loss, Change in appetite, Pain, Generalized weakness Endocrine: DENIES: Heat/cold intolerance Eyes: DENIES: Blurred vision, Eye pain Ears, nose, mouth, throat: COMPLAINS OF: Oral lesions, Toothache, DENIES: Hearing loss, Nasal discharge Respiratory: DENIES: Cough, Shortness of breath Cardiovascular: DENIES: Chest pain, Dyspnea on Exertion, Lower Extremity Edema Gastrointestinal: COMPLAINS OF: Abdominal pain, Difficulty Swallowing, DENIES : Constipation, Diarrhea, Vomiting Musculoskeletal: DENIES: Joint pain, Back pain Integumentary: COMPLAINS OF: Tumors Hematologic/Lymphatics: DENIES: Bruising Immunologic/Allergic: DENIES: Eczema Neurologic: COMPLAINS OF: Speech Problems, DENIES: Localized weakness Psychiatric: COMPLAINS OF: Depression Past Family Social History Coded Allergies: No Known Allergies (Unverified , 04/02/16) Past Medical History Facial mass first noticed in June 2015, status post chemotherapy in [facility]. Recent weight loss. . Past Surgical History No surgical history. . Reported Medications No medications taken at home. . Current Medications Medications (Trade) Dose Ordered Sig/Sara Route Start Time Stop Time Status Last Admin (Morphine Inj) 2 mg Q2H PRN IV 04/02/16 01:45 04/02/16 02:38 (Zofran Inj) 4 mg Q6H PRN IV PUSH 04/02/16 01:45 04/02/16 02:38 (NS Flush) 2 ml UNSCH PRN IVF 04/02/16 08:15 04/04/16 02:03 (NS Flush) 2 ml BID IVF 04/02/16 09:00 04/07/16 08:31 (Benadryl) 25 mg Q6H PRN PO 04/02/16 09:00 (Lovenox Inj) 30 mg Q24H SQ 04/04/16 15:30 04/06/16 17:28 (Hycet 325-7.5 Mg Liq) 15 ml Q4H PRN PO 04/02/16 09:00 04/07/16 01:44 Ibuprofen 600 mg 600 mg Q4H PRN PO 04/02/16 09:02 Sodium Chloride 11 meq/Sodium Acetate 59 meq/ Potassium Chloride 40 meq/ Magnesium Chloride 10 meq/ Multivitamins 10 ml/Folic Acid 1 mg/Amino Acids/ Dextrose 2,067.5261 ml @ 83 mls/hr Q24H IV-CENTRAL 04/03/16 20:00 04/06/16 22:27 (Liposyn Iii 20% Inj) 250 ml @ 10 mls/hr Q24H IV-CENTRAL 04/03/16 20:00 04/06/16 22:26 (Free Water) VOLUME: 200 ML Q6HR G-TUBE 04/04/16 08:45 04/07/16 12:00 Acetaminophen 650 mg 650 mg Q4H PRN PO 04/07/16 01:45 04/07/16 01:50 Potassium Chloride/Dextrose/ Sod Cl 1,000 ml @ 42 mls/hr [id number] IV 04/07/16 07:45 04/07/16 07:45 (Zosyn 3.375 Gm Premix) 50 ml @ 100 mls/hr Q6H IV 04/07/16 11:00 04/07/16 12:12 Family History As per patient's brother, unknown family history. Both patient's parents are alive and well. Patient has 2 children, ages 2 and 11 which are alive and well. . Substance Use Tobacco: Denies. Alcohol: Denies. Prescription med abuse: Denies. Illicits: Denies. . Psychosocial History Patient originally from [facility]. to An Garr[place] for the past 5 years, they have a 2-year-old daughter in common. Patient also has an 11 -year-old daughter from a prior relationship. Both of patient's parents are alive and well. 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 Patient and his brother Vish Yeboah flew from [facility] to [place], [place] for medical treatment. Brother tells me that they have an uncle, Suhas Sahu who resides in [place]. No other family member in [facility]. . Spiritual/Cultural Factors [employer]. Strong ti base. . Living Will: Never completed Health Care Surrogate: Never completed Durable Power of Security Infrastructure Engineer: Never completed Health Care Surrogate(s): No living will or healthcare surrogate documents have been completed. As per [place] statute, healthcare proxy falls to patient's . However, is not available for medical decision-making as she resides in [facility]. Patient' s brother Vish Nunn serving as healthcare proxy. Patient in agreement of this, palliative care will assist patient with completion of healthcare surrogate documentation. . Documented care wishes: No living will completed. . Today's verbally stated goals: Patient unable to participate in goals of care conversation secondary to clinical condition. . Family/friends goals: Continue current treatment plan. . Ethical and Legal Issues No living will or healthcare surrogate documents have been completed. . Physical Exam Vital Signs Date Time Temp Pulse Resp B/P Pulse Ox O2 Delivery O2 Flow Rate FiO2 04/07/16 12:00 101.2 125 16 99/54 100 04/07/16 10:41 110 04/07/16 08:50 118 94/55 04/07/16 08:00 99.5 106 16 92/52 96 04/07/16 04:00 100.8 107 17 97/56 96 04/07/16 03:07 20 04/07/16 03:07 20 04/07/16 00:00 101.5 131 19 103/63 99 04/06/16 21:00 128 04/06/16 20:00 100.9 125 17 96/55 95 04/06/16 18:15 101.8 130 20 94/50 99 04/06/16 16:50 101.8 135 103/60 04/06/16 16:20 128 79/44 04/06/16 16:00 102.0 135 20 85/41 100 04/06/16 04/07/16 18:59 06:59 Intake Total 1700 ml 689 ml Output Total 300 ml Balance 1700 ml 389 ml Intake Oral 240 ml 0 ml IV Total 1460 ml 689 ml Output Urine Total 300 ml # Bowel Movements 0 Exam CONSTITUTIONAL/GENERAL: This is an cachectic, ill looking male in no acute distress. Obtunded. TUBES/LINES/DRAINS: PIV's. SCD's. SKIN: No wounds seen anteriorly. Skin temperature appropriate. Not diaphoretic. HEAD: Atraumatic. Normocephalic. EYES: Pupils equal and round and reactive. No injection or drainage. ENT: Hearing grossly normal. Large mass to right side of mouth/jaw with kerlik dressing in place. Moderate amount of green/brown purulent drainage noted. Foul odor. CARDIOVASCULAR: Tachycardic. Regular rate and rhythm.Peripheral pulses symmetric. RESPIRATORY/CHEST: Symmetric, unlabored respirations. Clear to auscultation. Breath sounds equal bilaterally. No wheezes, rales, or rhonchi. GASTROINTESTINAL: Abdomen soft, non-tender, nondistended. PEG in place. No guarding. Bowel sounds present. GENITOURINARY: Without palpable bladder distension. MUSCULOSKELETAL: Extremities without clubbing, cyanosis, or edema. significant muscle wasting noted. NEUROLOGICAL: Obtunded. Briefly opening eyes. Non-verbal. PSYCHIATRIC: Unable to assess secondary to clinical condition. Appears calm. . Diagnostic Tests Laboratory Laboratory Tests Test 04/05/16 04/05/16 04/06/16 04/06/16 06:40 12:45 06:38 17:33 White Blood Count 35.4 TH/MM3 22.1 TH/MM3 (4.0-11.0) (4.0-11.0) Red Blood Count 3.37 MIL/MM3 2.59 MIL/MM3 (4.50-5.90) (4.50-5.90) Hemoglobin 9.9 GM/DL 8.0 GM/DL (13.0-17.0) (13.0-17.0) Hematocrit 28.8 % 22.5 % (39.0-51.0) (39.0-51.0) Mean Corpuscular Volume 85.5 FL 86.6 FL (80.0-100.0) (80.0-100.0) Mean Corpuscular Hemoglobin 29.5 PG 30.7 PG (27.0-34.0) (27.0-34.0) Mean Corpuscular Hemoglobin 34.5 % 35.4 % Concent (32.0-36.0) (32.0-36.0) Red Cell Distribution Width 14.6 % 14.6 % (11.6-17.2) (11.6-17.2) Platelet Count 236 TH/MM3 216 TH/MM3 (150-450) (150-450) Mean Platelet Volume 6.6 FL 6.3 FL (7.0-11.0) (7.0-11.0) Neutrophils (%) (Auto) 89.5 % 91.7 % (16.0-70.0) (16.0-70.0) Lymphocytes (%) (Auto) 3.8 % 2.9 % (9.0-44.0) (9.0-44.0) Monocytes (%) (Auto) 5.3 % (0.0-8.0) 4.5 % (0.0-8.0) Eosinophils (%) (Auto) 0.9 % (0.0-4.0) 0.7 % (0.0-4.0) Basophils (%) (Auto) 0.5 % (0.0-2.0) 0.2 % (0.0-2.0) Neutrophils # (Auto) 31.7 TH/MM3 20.3 TH/MM3 (1.8-7.7) (1.8-7.7) Lymphocytes # (Auto) 1.3 TH/MM3 0.6 TH/MM3 (1.0-4.8) (1.0-4.8) Monocytes # (Auto) 1.9 TH/MM3 1.0 TH/MM3 (0-0.9) (0-0.9) Eosinophils # (Auto) 0.3 TH/MM3 0.2 TH/MM3 (0-0.4) (0-0.4) Basophils # (Auto) 0.2 TH/MM3 0.0 TH/MM3 (0-0.2) (0-0.2) CBC Comment AUTO DIFF AUTO DIFF Differential Total Cells 100 100 Counted Neutrophils % (Manual) 73 % (16-70) 87 % (16-70) Band Neutrophils % 3 % (0-6) 8 % (0-6) Lymphocytes % 17 % (9-44) 2 % (9-44) Monocytes % 7 % (0-8) 2 % (0-8) Neutrophils # (Manual) 26.9 TH/MM3 21.2 TH/MM3 (1.8-7.7) (1.8-7.7) Differential Comment FINAL DIFF FINAL DIFF MANUAL MANUAL Atypical Lymphocytes % (0-0) Platelet Estimate NORMAL NORMAL (NORMAL) (NORMAL) Platelet Morphology Comment CLUMPED NORMAL (NORMAL) (NORMAL) Hematology Comments Sodium Level 137 MEQ/L (136-145) Potassium Level 3.2 MEQ/L (3.5-5.1) Chloride Level 103 MEQ/L (98-107) Carbon Dioxide Level 18.0 MEQ/L (21.0-32.0) Anion Gap 16 MEQ/L (5-15) Blood Urea Nitrogen 33 MG/DL (7-18) Creatinine 1.55 MG/DL (0.60-1.30) Estimat Glomerular Filtration 51 ML/MIN (>89) Rate Random Glucose 135 MG/DL (74-106) Calcium Level 12.0 MG/DL (8.5-10.1) Protein Corrected Calcium MG/DL (8.5-10.1) Total Protein 5.5 GM/DL (6.4-8.2) Urine Color YELLOW (YELLW/STRAW) Urine Turbidity CLEAR (CLEAR) Urine pH 5.5 (5.0-8.5) Urine Specific [place] 1.009 (1.002-1.035) Urine Protein TRACE mg/dL (NEG-TRACE) Urine Glucose (UA) 1000 mg/dL (NEG) Urine Ketones NEG mg/dL (NEG) Urine Occult Blood TRACE (NEG) Urine Nitrite NEG (NEG) Urine Bilirubin NEG (NEG) Urine Urobilinogen LESS THAN 2.0 MG/DL (LESS THAN 2.0) Urine Leukocyte Esterase TRACE (NEG) Urine RBC 2 /hpf (0-3) Urine WBC 13 /hpf (0-5) Urine Bacteria RARE /hpf (NONE) Microscopic Urinalysis Comment CULTURE INDICATED HIV (1&2) Antibody NEGATIVE (NEGATIVE) Metamyelocytes 1 % (0-1) Test 04/07/16 04/07/16 04/07/16 04/07/16 05:24 08:25 11:55 14:20 White Blood Count 22.9 TH/MM3 (4.0-11.0) Red Blood Count 2.36 MIL/MM3 (4.50-5.90) Hemoglobin 7.0 GM/DL (13.0-17.0) Hematocrit 20.5 % (39.0-51.0) Mean Corpuscular Volume 86.7 FL (80.0-100.0) Mean Corpuscular Hemoglobin 29.8 PG (27.0-34.0) Mean Corpuscular Hemoglobin 34.3 % Concent (32.0-36.0) Red Cell Distribution Width 14.4 % (11.6-17.2) Platelet Count 198 TH/MM3 (150-450) Mean Platelet Volume 6.4 FL (7.0-11.0) Neutrophils (%) (Auto) 85.5 % (16.0-70.0) Lymphocytes (%) (Auto) 5.4 % (9.0-44.0) Monocytes (%) (Auto) 7.8 % (0.0-8.0) Eosinophils (%) (Auto) 1.1 % (0.0-4.0) Basophils (%) (Auto) 0.2 % (0.0-2.0) Neutrophils # (Auto) 19.6 TH/MM3 (1.8-7.7) Lymphocytes # (Auto) 1.2 TH/MM3 (1.0-4.8) Monocytes # (Auto) 1.8 TH/MM3 (0-0.9) Eosinophils # (Auto) 0.2 TH/MM3 (0-0.4) Basophils # (Auto) 0.0 TH/MM3 (0-0.2) CBC Comment AUTO DIFF Differential Total Cells 100 Counted Neutrophils % (Manual) 81 % (16-70) Band Neutrophils % 7 % (0-6) Lymphocytes % 2 % (9-44) Monocytes % 5 % (0-8) Basophils % 1 % (0-2) Neutrophils # (Manual) 21.1 TH/MM3 (1.8-7.7) Metamyelocytes 3 % (0-1) Myelocytes 1 % (0-0) Differential Comment FINAL DIFF MANUAL Platelet Estimate NORMAL (NORMAL) Platelet Morphology Comment NORMAL (NORMAL) Sodium Level 133 MEQ/L (136-145) Potassium Level 2.3 MEQ/L 3.0 MEQ/L (3.5-5.1) (3.5-5.1) Chloride Level 97 MEQ/L (98-107) Carbon Dioxide Level 26.4 MEQ/L (21.0-32.0) Anion Gap 10 MEQ/L (5-15) Blood Urea Nitrogen 19 MG/DL (7-18) Creatinine 1.05 MG/DL (0.60-1.30) Estimat Glomerular Filtration 80 ML/MIN (>89) Rate Random Glucose 113 MG/DL (74-106) Calcium Level 9.0 MG/DL (8.5-10.1) Blood Type O POSITIVE Antibody Screen NEGATIVE Magnesium Level 1.1 MG/DL (1.5-2.5) Crossmatch Leukocyte-Reduced Red Blood Cells Blood Bank Comment Result Diagram: 04/07/16 0524 04/07/16 1155 Microbiology Microbiology Date/Time Procedure Status Source Growth 04/05/16 12:45 Urine Culture - Final Complete Urine Clean Catch NO GROWTH IN 48 HOURS. 04/06/16 17:33 Aerobic Blood Culture - Preliminary Resulted Blood Peripheral NO GROWTH IN 1 DAY 04/06/16 17:33 Anaerobic Blood Culture - Preliminary Resulted Blood Peripheral NO GROWTH IN 1 DAY Imaging Last Impressions Chest X-Ray 04/03/16 0000 Signed Impressions: Service Date/Time: Sunday, April 03, 2016 16:42 - CONCLUSION: Left subclavian venous catheter positioned in the superior vena cava with no pneumothorax Yaakov Montaño MD Neck CT 04/02/16 0000 Signed Impressions: Service Date/Time: Saturday, April 02, 2016 11:54 - CONCLUSION: Very large heterogeneous soft tissue mass along the right side of the face with gross destruction involving most of the right mandible. The mass contains amorphous calcifications and appears to involve the right sternocleidomastoid muscle. The mass appears to extend into the oral cavity with diffuse enlargement of the right tonsillar pillar. Neoplastic disease in the primary consideration. Niall Corrales MD Multiplanar Reconstruction 04/02/16 0000 Signed Impressions: Service Date/Time: Saturday, April 02, 2016 11:54 - CONCLUSION: 3-D reconstructive images demonstrating destruction involving most the right side of the mandible. Niall Corrales MD Head CT 04/02/16 0000 Signed Impressions: Service Date/Time: Saturday, April 02, 2016 11:54 - CONCLUSION: 1. Unremarkable CT scan of the brain 2. Large abnormal soft tissue mass with calcifications along the right side of the face. Niall Corrales MD Procedures * 04/03/16 - PEG placement * 04/03/16 - Biopsy of facial mass . Patient/Family Conference Present at Family Conference: Brother Vish Yeboah. Family Conference Time (mins): 45 Family Conference Location: Bedside Issues Discussed: * Palliative care role, purpose, approach * Additional medical, psychosocial, and spiritual history * Patients general health, functional status, and cognitive changes in the months leading up to the current hospitalization * Patient/family understanding of the current medical problems * Patient/family understanding of prognosis * Patients goals of care as best understood from advance directives and/or conversations and/or values * Current medical treatment options and benefits/burdens of those options * Likely scenarios comparing ongoing aggressive care with a transition to comfort measures only * Questions answered to the best of my ability * Palliative care contact information provided . 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 Pertinent Non-Medical Issues Psychosocial: Spiritual: Legal: Ethical issues impacting care: Important Contacts Brother Vish Nunn . . Prognosis Mr. Ribera is a 35 y/o male with no significant prior medical history who was admitted on 04/02/16 for treatment of facial mass. 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 Not a surgical candidate. Appears he has limited treatment options secondary to clinical condition, palliative radiation being considered. Patient's prognosis is very poor secondary to advanced cancer, profound physical deconditioning, and malnutrition. Patient is at high risk for further decline, additional complications and . . Plan * Patient appears incapacitated to make healthcare decisions at this time secondary to clinical condition, obtunded. Unclear if he will regain. No living will or healthcare surrogate documents have been completed. As per [place] statute, healthcare proxy falls to patient's . However, is not available for medical decision-making as she resides in [facility]. Patient' s brother Vish Nunn serving as healthcare proxy. Patient in agreement to this, palliative care will assist patient with completion of healthcare surrogate documentation during this hospitalization. * CODE STATUS: Attempted to discuss CODE STATUS with patient and brother. However, unsuccessful secondary to cultural factors, limited health care literary/poor understanding of choices and poor insight into patient's terminal condition. Is important to note that in [facility], CPR/life support is not a cultural option or norm secondary to scarcity of resources; Thus, terminal patients are care for at home. Patient and brother unfamiliar with life prolonging interventions. Palliative care in agreement with attending's recommendations against escalation of care -ICU, intubation, mech ventilation or vasopressors- in the setting of patient's terminal condition. * GOALS OF CARE: Patient unable to participate in GOC conversation secondary to clinical condition. Patient's brother Obinna verbalized wishing to continue current medical care in order to achieve eradication of cancer. Discussed with brother that pt's current condition is terminal and NOT curable, discussed that patient will from it. Brother tells me that the doctors are telling them that they are doing "everything they can" to treat pt. Discussed that "treat" does NOT equate to "cure". Reviewed current medical management, rationale and limitations of treatment secondary to advanced cancer, profound physical deconditioning and clinical complications -infection. Brother not receptive of this explanation, verbalized having a strong ti base and that they are awaiting for a miracle. Brother reports that this is the first time that he is learning that patient's condition is terminal and NOT curable. Encouraged brother to seek clarification from providers. * SYMPTOMS: ==Oral pain, secondary to burden of disease. Lortab and Morphine available as needed. Palliative care recommends switching Morphine to Dilaudid in the setting of kidney disease -increased risk of neurotoxicity. ==Debility: secondary to burden of disease and malnutrition. Progressive over the past 6 months. Peg tube in place with ongoing feeding. Likely to worsen. * Case discussed with JIMMY Russ, Ana Rosa Noonan and bedside RN. * Palliative care contact information provided to brother. * Palliative care will continue to f/u with patient and family for further clarification of goals and for emotional support. . Time Spent Total Floor Time (mins): 95 (Total time to include review and summarization of medical records, physical exam, conversation with patient in brother, case discussion with Dr. rush, onc and bedside RN.) >50% Counseling/Coord of Care: Yes Thank you for the opportunity to participate in the care of Mr. Mtz. Attestation To help prompt me to consider important information that might be impacting today's encounter and assessment, information from prior notes written by myself or my colleagues may have been "brought forward" into today's note. My signature on this note, however, is an attestation that I personally performed the exam, history, and/or decision-making noted today, and, unless otherwise indicated, the interactions with patient, family, and staff as well as the review of records all occurred today. I also attest that the listed assessment and stated plan reflect my best clinical judgment today based on the combination of historical information, prior notes, and today's exam/ interactions. When time spent is documented, it refers only to time spent today by the signer, or if indicated, combined time spent today by collaborating physician/nurse practitioner. Manda De Anda Apr 07, 2016 15:39
[2016-04-07] MEDS ORDERED: LIDOCAINE HCL 1% 50 ML VIAL ONE (15:46)
[2016-04-07] MEDS: FAT EMULSION 20% INJ 250 ML (@10 mls/hr) IV-CENTRAL SCH (20:00)
[2016-04-07] MEDS: SODIUM CHLORIDE 23.4% INJ 11 MEQ, SODIUM ACETATE INJ 59 MEQ, POTASSIUM CHLORIDE INJ 40 ... IV-CENTRAL SCH ×7 (20:00)
[2016-04-08] VITALS (7 sets, daily range): BP systolic 80–101; BP diastolic 49–65; PULSE 100–113; RESP 16–20; TEMP 96.3–97.6; O2SAT 95–100
[2016-04-08] MEDS ORDERED: METOPROLOL TARTRATE 25 MG TAB PO ONE (00:15)
[2016-04-08] MEDS: FREE WATER G-TUBE SCH ×4 (06:00→22:43)
[2016-04-08] MEDS: PIPERACIL-TAZO 3.375 GM PREMIX 50 ML IV SCH ×4 (06:12→22:43)
--- NOTE | 2016-04-08 08:27 | HHI.PR ---
Subjective Remarks ill looking but in no distress. T max 101.2 pain is fairly controlled. d/w the RN and no acute issues over night. Objective Vitals Vital Signs Date Time Temp Pulse Resp B/P Pulse Ox O2 Delivery O2 Flow Rate FiO2 04/08/16 04:00 97.5 100 18 97/52 98 04/08/16 00:00 97.5 113 18 101/58 97 04/07/16 23:30 19 04/07/16 23:30 19 04/07/16 21:27 100.1 116 20 105/58 98 04/07/16 19:02 98.0 126 16 101/63 97 04/07/16 16:20 99.6 120 16 94/50 98 04/07/16 16:15 101.0 125 20 83/46 100 04/07/16 12:00 101.2 125 16 99/54 100 04/07/16 10:41 110 04/07/16 08:50 118 94/55 I/O 04/07/16 04/07/16 04/07/16 04/08/16 04/08/16 04/08/16 07:00 15:00 23:00 07:00 15:00 23:00 Intake Total 689 ml 681 ml 1317 ml 375 ml Balance 689 ml 681 ml 1317 ml 375 ml Intake Oral 0 ml IV Total 689 ml 681 ml 1317 ml 375 ml # Bowel Movements 1 Result Diagram: 04/07/16 0524 04/07/16 1155 Imaging Last Impressions Chest X-Ray 04/03/16 0000 Signed Impressions: Service Date/Time: Sunday, April 03, 2016 16:42 - CONCLUSION: Left subclavian venous catheter positioned in the superior vena cava with no pneumothorax Yaakov Montaño MD Neck CT 04/02/16 0000 Signed Impressions: Service Date/Time: Saturday, April 02, 2016 11:54 - CONCLUSION: Very large heterogeneous soft tissue mass along the right side of the face with gross destruction involving most of the right mandible. The mass contains amorphous calcifications and appears to involve the right sternocleidomastoid muscle. The mass appears to extend into the oral cavity with diffuse enlargement of the right tonsillar pillar. Neoplastic disease in the primary consideration. Niall Corrales MD Multiplanar Reconstruction 04/02/16 0000 Signed Impressions: Service Date/Time: Saturday, April 02, 2016 11:54 - CONCLUSION: 3-D reconstructive images demonstrating destruction involving most the right side of the mandible. Niall Corrales MD Head CT 04/02/16 0000 Signed Impressions: Service Date/Time: Saturday, April 02, 2016 11:54 - CONCLUSION: 1. Unremarkable CT scan of the brain 2. Large abnormal soft tissue mass with calcifications along the right side of the face. Niall Corrales MD Objective Remarks GENERAL: ill looking but in no acute distress HEENT; swollen right face- covered with clean dressing. CARDIOVASCULAR: Regular rate and regular rhythm without murmurs, gallops, or rubs. RESPIRATORY: Clear to auscultation. Breath sounds equal bilaterally. No wheezes , rales, or rhonchi. GASTROINTESTINAL: Abdomen soft, non-tender, nondistended. Normal, active bowel sounds MUSCULOSKELETAL: Extremities without clubbing, cyanosis, or edema. NEURO: Alert & Oriented x4 to person, place, time, situation. Moves all ext x4 Procedures central line placement PEG placement bone biopsy teeth extraction Medications and IVs Current Medications Sodium Chloride (NS 1000 ml Inj) 1,000 ml @ 75 mls/hr [id number] IV Last administered on 04/02/16 02:38; Start 04/02/16 at 01:45; Stop 04/02/16 at 08:25 ; Status DC Morphine Sulfate (Morphine Inj) 2 mg Q2H PRN IV BREAKTHROUGH PAIN Last administered on 04/02/16 02:38; Start 04/02/16 at 01:45 Ondansetron HCl 4 mg 4 mg Q6H PRN IV PUSH NAUSEA Last administered on 02:38; Start 04/02/16 at 01:45 Sodium Chloride 500 ml @ 0 mls/hr BOLUS ONCE IV Last administered on 04:00; Start 04/02/16 at 04:00; Stop 04/02/16 at 04:01; Status DC Potassium Chloride/Dextrose/ Sod Cl (D5-NS + KCl 20 Meq Inj) 1,000 ml @ 125 mls /hr Q8H IV Last administered on 04/03/16 11:51; Start 04/02/16 at 09:00; Stop 04/04/16 at 08:51; Status DC IV Flush (NS Flush) 2 ml UNSCH PRN IVF FLUSH AFTER USING IV ACCESS Last administered on 04/04/16 02:03; Start 04/02/16 at 08:15 IV Flush (NS Flush) 2 ml BID IVF Last administered on 04/07/16 21:39; Start at 09:00 Acetaminophen (Tylenol) 650 mg Q4H PRN PO PAIN SCALE 1 TO 10; Start 04/02/16 at 09:00; Stop 04/02/16 at 09:00; Status DC Ibuprofen (Motrin) 600 mg Q4H PRN PO PAIN SCALE 1 TO 5; Start 04/02/16 at 08:15 ; Stop 04/02/16 at 08:49; Status DC Hydromorphone HCl (Dilaudid Pf Inj) 0.5 mg Q2H PRN IV PAIN SCALE 6 TO 10; Start 04/02/16 at 08:15; Stop 04/02/16 at 08:49; Status DC Diphenhydramine HCl (Benadryl) 25 mg Q6H PRN PO ITCHING; Start 04/02/16 at 09: 00 Miscellaneous Information (Post-op Orders (for Pharmacy)) STAT ONCE XX ; Start 04/02/16 at 08:15; Stop 04/03/16 at 06:06; Status DC Miscellaneous Information 1 ONCE ONCE XX ; Start 04/02/16 at 08:15; Stop at 06:06; Status DC Enoxaparin Sodium (Lovenox Inj) 30 mg Q24H SQ Last administered on 04/07/16 15: 29; Start 04/04/16 at 15:30 Naloxone HCl (Narcan Inj) 0.4 mg UNSCH PRN IV RESPIRATORY RATE LESS THAN 10; Start 04/02/16 at 08:15; Stop 04/02/16 at 08:49; Status DC Diphenhydramine HCl (Benadryl Inj) 25 mg Q6H PRN IV ITCHING; Start 04/02/16 at 09:00; Stop 04/02/16 at 09:00; Status DC HOUSEKEEPING CLEANER Dosage Infused (Pha) 1 Q8HR .XX ; Start 04/02/16 at 09:00; Stop 04/02/16 at 09:00; Status DC Acetaminophen/ Hydrocodone Bitart (Hycet 325-7.5 Mg Liq) 15 ml Q4H PRN PO PAIN SCALE 6-10 Last administered on 04/07/16 21:31; Start 04/02/16 at 09:00 Ibuprofen (Motrin Liq) 600 mg Q4H PRN PO PAIN SCALE 1-5; Start 04/02/16 at 09: 00; Stop 04/02/16 at 09:02; Status DC Ibuprofen 600 mg 600 mg Q4H PRN PO PAIN SCALE 1-5; Start 04/02/16 at 09:02 Sodium Chloride (NS 500 ml Inj) 500 ml @ 30 mls/hr [id number] IV ; Start 04/03/16 at 03:15; Stop 04/04/16 at 03:14; Status DC Bupivacaine HCl/ Epinephrine Bitart (Sensorcaine-Epinephrine Pf 0.25% Inj) 20 ml STK-MED ONCE .ROUTE ; Start 04/03/16 at 13:46; Stop 04/03/16 at 13:47; Status DC Chlorhexidine Gluconate (Peridex 0.12% Liq) 60 ml STK-MED ONCE .ROUTE ; Start at 13:46; Stop 04/03/16 at 13:47; Status DC Heparin Sodium (Porcine) (Heparin Inj) 10,000 units STK-MED ONCE .ROUTE ; Start 04/03/16 at 13:46; Stop 04/03/16 at 13:47; Status DC Heparin Sodium (Porcine) (Heparin Inj) 10,000 units STK-MED ONCE .ROUTE ; Start 04/03/16 at 13:46; Stop 04/03/16 at 13:47; Status DC Cefazolin Sodium (Ancef Inj) 1,000 mg STK-MED ONCE IV Last administered on 04/03 14:43; Start 04/03/16 at 14:43; Stop 04/03/16 at 15:03; Status DC Lidocaine/ Epinephrine (Xylocaine-Epi 1%-1:100,000 Inj) 50 ml STK-MED ONCE .ROUTE ; Start 04/03/16 at 15:35; Stop 04/03/16 at 15:36; Status DC Lidocaine/ Epinephrine (Xylocaine-Epi 2%-1:100,000 Inj) 30 ml STK-MED ONCE .ROUTE Last administered on 04/03/16 16:01; Start 04/03/16 at 15:35; Stop at 15:36; Status DC Microfibriller Collagen Hemostat (Avitene Powder Pack) 1 gm STK-MED ONCE .ROUTE ; Start 04/03/16 at 15:41; Stop 04/03/16 at 15:42; Status DC Fentanyl Citrate 250 mcg 250 mcg STK-MED ONCE .ROUTE ; Start 04/03/16 at 16:34; Stop 04/03/16 at 16:35; Status DC Sodium Chloride 11 meq/Sodium Acetate 59 meq/ Potassium Chloride 40 meq/ Magnesium Chloride 10 meq/ Multivitamins 10 ml/Folic Acid 1 mg/Amino Acids/ Dextrose 2,067.5261 ml @ 83 mls/hr Q24H IV-CENTRAL Last administered on 22:27; Start 04/03/16 at 20:00 Fat Emulsion Intravenous (Liposyn Iii 20% Inj) 250 ml @ 10 mls/hr Q24H IV- CENTRAL Last administered on 04/06/16 22:26; Start 04/03/16 at 20:00 Morphine Sulfate (*morphine INJ PERIprocedure ONLY) 8 mg STK-MED ONCE .ROUTE Last administered on 04/03/16 17:22; Start 04/03/16 at 17:22; Stop 04/03/16 at 17:23; Status DC Miscellaneous Information ALL NURSING DEPARTME... UNSCH PRN XX SEE LABEL COMMENTS; Start 04/03/16 at 16:28; Stop 04/04/16 at 16:27; Status DC Potassium Chloride 100 ml @ 50 mls/hr Q2H IV Last administered on 04/04/16 01 :52; Start 04/03/16 at 21:45; Stop 04/04/16 at 01:44; Status DC Magnesium Sulfate/ Dextrose (Magnesium Sulfate 1 Gm Premix) 100 ml @ 100 mls/ hr Q1H IV Last administered on 04/04/16 00:16; Start 04/03/16 at 21:45; Stop 04/03/16 at 23:44; Status DC Water (Free Water) VOLUME: 200 ML Q6HR G-TUBE Last administered on 04/08/16 06: 00; Start 04/04/16 at 08:45 Potassium Chloride (KCl 40 Meq/30 ml Liq) 40 meq ONCE ONCE PEG Last administered on 04/04/16 10:45; Start 04/04/16 at 10:45; Stop 04/04/16 at 10:50 ; Status DC Propofol (Diprivan 200 Mg/20 ml Inj) 200 mg STK-MED ONCE IV ; Start 04/03/16 at 10:46; Stop 04/04/16 at 10:46; Status DC Phenylephrine HCl (Neosynephrine/ NS 1000 Mcg/10ml Syr) 1,000 mcg STK-MED ONCE IV ; Start 04/03/16 at 10:46; Stop 04/04/16 at 10:46; Status DC Ondansetron HCl 4 mg 4 mg STK-MED ONCE IV PUSH ; Start 04/03/16 at 10:46; Stop 04/04/16 at 10:46; Status DC Lactated Ringer's 1,000 ml @ As Directed STK-MED ONCE IV ; Start 04/03/16 at 10 :46; Stop 04/04/16 at 10:46; Status DC Pamidronate Disodium/Sodium Chloride (Aredia Inj/NS 1000 ml Inj) 1,000 ml @ 42 mls/hr ONCE ONCE IV Last administered on 04/04/16 23:37; Start 04/04/16 at 22 :00; Stop 04/05/16 at 21:48; Status DC Potassium Chloride 40 meq 40 meq ONCE ONCE PEG Last administered on 04/05/16 15:12; Start 04/05/16 at 12:00; Stop 04/05/16 at 12:01; Status DC Levofloxacin/ Dextrose 100 ml @ 100 mls/hr Q24H IV Last administered on 22:27; Start 04/06/16 at 18:00; Stop 04/07/16 at 09:06; Status DC Sodium Chloride (NS 1000 ml Inj) 1,000 ml @ 0 mls/hr BOLUS ONCE IV Last administered on 04/07/16 01:00; Start 04/07/16 at 01:00; Stop 04/07/16 at 01:01; Status DC Acetaminophen (Tylenol) 650 mg Q4H PRN PO FEVER OVER 101.0 Last administered on 04/07/16 21:31; Start 04/07/16 at 01:45 Metoprolol Tartrate 25 mg 25 mg ONCE ONCE PO Last administered on 04/07/16 03: 16; Start 04/07/16 at 03:15; Stop 04/07/16 at 03:16; Status DC Potassium Chloride/Dextrose/ Sod Cl (D5-NS + KCl 20 Meq Inj) 1,000 ml @ 42 mls/ hr [id number] IV Last administered on 04/07/16 07:45; Start 04/07/16 at 07:45 Potassium Chloride 40 meq 40 meq ONCE ONCE PO Last administered on 04/07/16 08 :15; Start 04/07/16 at 08:15; Stop 04/07/16 at 08:18; Status DC Cefepime HCl 2000 mg/Sodium Chloride 100 ml @ 200 mls/hr Q12H IV Last administered on 04/07/16 09:00; Start 04/07/16 at 09:00; Stop 04/07/16 at 09:07; Status DC Piperacillin Sod/ Tazobactam Sod 50 ml @ 100 mls/hr Q6H IV Last administered on 04/08/16 06:12; Start 04/07/16 at 11:00 Magnesium Sulfate/ Dextrose (Magnesium Sulfate 1 Gm Premix) 100 ml @ 100 mls/ hr ONCE ONCE IV Last administered on 04/07/16 15:30; Start 04/07/16 at 13:15; Stop 04/07/16 at 14:14; Status DC Potassium Chloride (KCl 40 Meq/30 ml Liq) 40 meq ONCE ONCE PEG Last administered on 04/07/16 15:30; Start 04/07/16 at 13:15; Stop 04/07/16 at 13:16; Status DC Lidocaine HCl (Xylocaine 1% Inj (50 ml)) 50 ml STK-MED ONCE .ROUTE ; Start at 15:46; Stop 04/07/16 at 15:47; Status DC Metoprolol Tartrate (Lopressor) 25 mg ONCE ONCE PO ; Start 04/08/16 at 00:15; Stop 04/08/16 at 00:16; Status DC A/P Assessment and Plan 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 The mass contains amorphous calcifications and appears to involve the right sternocleidomastoid muscle. The mass appears to extend into the oral cavity with diffuse enlargement of the right tonsillar pillar. 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 had CT simulation for radiation. continue with pain control. general and facial surgery following. -sepsis with possible right facial wound and central line as the source started on Zosyn- blood cultures negative so far- central line discontinued- will monitor the temps- -acute kidney injury/ hypercalcemia / hyponatremia due to dehydration- received a dose of Aradia - improved - will monitor -anemia- s/p PRBC transfusion- will monitor H/H- -hypokalemia;replaced- will monitor -severe malnutrition- s/p PEG placement-started on tube feeding - desk director consulted. -DVT prophylaxis with lovenox patient is ill looking. palliative care consult appreciated. Meredith Acosta MD Apr 08, 2016 08:27
--- NOTE | 2016-04-08 09:02 | PD.ONC.PN ---
Subjective Subjective Remarks Translation service used to speak with patient and brother. (washer engineer [id number]). Tmax 100.1 overnight. Patient complaining of pain in his right arm as well as his bilateral knees and right shoulder. He has been rubbing a cream on his right arm without significant improvement in his symptoms. Objective Data Date Time Temp Pulse Resp B/P Pulse Ox O2 Delivery O2 Flow Rate FiO2 04/08/16 08:00 96.7 108 20 84/49 100 81/49 04/08/16 04:00 97.5 100 18 97/52 98 04/08/16 00:00 97.5 113 18 101/58 97 04/07/16 23:30 19 04/07/16 23:30 19 04/07/16 21:30 105 04/07/16 21:27 100.1 116 20 105/58 98 04/07/16 19:02 98.0 126 16 101/63 97 04/07/16 16:20 99.6 120 16 94/50 98 04/07/16 16:15 101.0 125 20 83/46 100 04/07/16 12:00 101.2 125 16 99/54 100 04/07/16 10:41 110 Result Diagram: 04/07/16 0524 04/07/16 1155 Laboratory Results Laboratory Tests Test 04/07/16 04/07/16 11:55 14:20 Potassium Level 3.0 MEQ/L Magnesium Level 1.1 MG/DL Crossmatch Leukocyte-Reduced Red Blood Cells Blood Bank Comment Culture Results Microbiology Date/Time Procedure Status Source Growth 04/05/16 12:45 Urine Culture - Final Complete Urine Clean Catch NO GROWTH IN 48 HOURS. 04/06/16 17:33 Aerobic Blood Culture - Preliminary Resulted Blood Peripheral NO GROWTH IN 1 DAY 04/06/16 17:33 Anaerobic Blood Culture - Preliminary Resulted Blood Peripheral NO GROWTH IN 1 DAY Administered Medications Medications (Trade) Dose Ordered Sig/Sara Route PRN Reason Start Time Stop Time Status Last Admin Dose Admin Morphine Sulfate (Morphine Inj) 2 mg Q2H PRN IV BREAKTHROUGH PAIN 04/02/16 01:45 04/02/16 02:38 Ondansetron HCl (Zofran Inj) 4 mg Q6H PRN IV PUSH NAUSEA 04/02/16 01:45 04/02/16 02:38 IV Flush (NS Flush) 2 ml UNSCH PRN IVF FLUSH AFTER USING IV ACCESS 04/02/16 08:15 04/04/16 02:03 IV Flush (NS Flush) 2 ml BID IVF 04/02/16 09:00 04/07/16 21:39 Enoxaparin Sodium (Lovenox Inj) 30 mg Q24H SQ 04/04/16 15:30 04/07/16 15:29 Acetaminophen/ Hydrocodone Bitart 15 ml 15 ml Q4H PRN PO PAIN SCALE 6-10 04/02/16 09:00 04/07/16 21:31 Sodium Chloride 11 meq/Sodium Acetate 59 meq/ Potassium Chloride 40 meq/ Magnesium Chloride 10 meq/ Multivitamins 10 ml/Folic Acid 1 mg/Amino Acids/ Dextrose 2,067.5261 ml @ 83 mls/hr Q24H IV-CENTRAL 04/03/16 20:00 04/06/16 22:27 Fat Emulsion Intravenous (Liposyn Iii 20% Inj) 250 ml @ 10 mls/hr Q24H IV-CENTRAL 04/03/16 20:00 04/06/16 22:26 Water (Free Water) VOLUME: 200 ML Q6HR G-TUBE 04/04/16 08:45 04/08/16 06:00 Acetaminophen 650 mg 650 mg Q4H PRN PO FEVER OVER 101.0 04/07/16 01:45 04/07/16 21:31 Potassium Chloride/Dextrose/ Sod Cl 1,000 ml @ 42 mls/hr [id number] IV 04/07/16 07:45 04/07/16 07:45 Piperacillin Sod/ Tazobactam Sod (Zosyn 3.375 Gm Premix) 50 ml @ 100 mls/hr Q6H IV 04/07/16 11:00 04/08/16 06:12 Objective Remarks GENERAL: Young man sitting up in bed. SKIN: right facial tumor wrapped in clean bandages. HEAD: Normocephalic. EYES: No injection or drainage. NECK: massive tumor right neck. LYMPHATIC: massive tumor right neck. . CARDIOVASCULAR: Regular rate and rhythm RESPIRATORY: Breath sounds equal bilaterally. No accessory muscle use. GASTROINTESTINAL: Abdomen soft, G-tube in place, receiving TF. EXTREMITIES: No cyanosis. extremities warm and well perfused. MUSCULOSKELETAL: muscle atrophy. NEUROLOGICAL: awake and alert. able to move extremities. 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 Plan 1. continue Zosyn-->BC + GNR, specificities pending 2. I'm going to schedule Morphine 2mg IV q 4 hours as the patient has a difficult time due to the language barrier and speech difficulty communicating that he is in pain. Will also continue Morphine 2mg IV q2 hours for breakthrough pain 3. monitor labs 4. I had a long discussion with the patient and his brother about the terminal nature of his condition. I explained that any treatment that could be offered would be palliative in nature and not curative and that the patient will ultimately from his condition. I explained that the chemotherapy, if he is able to receive it, will offer only a small benefit and may make the patient more sick. Radiation is still being planned and will hopefully start next week. However, that will also not cure his condition. emotional support provided. discussion ensued. multiple questions answered. time spent at bedside ~30 minutes. The patient and his brother seemed receptive to this conversation. Brother stated he understood that the patient would not be able to be cured but he still hopes the radiation will reduce the swelling somewhat. Attending Statement OOB to chair large neck mass. XRT and chemo next week. The exam, history, and the medical decision-making described in the above note were completed with the assistance of the mid-level provider. I reviewed and agree with the findings presented. I attest that I had a [id number] encounter with the patient on the same day, and personally performed and documented my assessment and findings in the medical record. Sirisha Cotton Apr 08, 2016 09:02 Sachin Shaw MD Apr 08, 2016 19:20
[2016-04-08 09:56] LABS: AUTOMATED NEUTROPHIL # 19.1 TH/MM3 (1.8-7.7); BASOPHIL # 0.1 TH/MM3 (0-0.2); BASOPHIL % 0.5 % (0.0-2.0); EOSINOPHIL # 0.3 TH/MM3 (0-0.4); EOSINOPHIL % 1.2 % (0.0-4.0); HEMATOCRIT 25.3 % (39.0-51.0); LYMPH % 5.2 % (9.0-44.0); LYMPHOCYTE # 1.2 TH/MM3 (1.0-4.8); MEAN CELL VOLUME 84.3 FL (80.0-100.0); MEAN CORPUSCULAR HEMOGLOBIN 29.5 PG (27.0-34.0); MONO % 7.1 % (0.0-8.0); PLATELET COUNT 194 TH/MM3 (150-450); RED CELL DISTRIBUTION WIDTH 15.3 % (11.6-17.2); WHITE BLOOD COUNT 22.3 TH/MM3 (4.0-11.0)
[2016-04-08 10:09] LABS: HEMO FLAGS AUTO DIFF
[2016-04-08] MEDS: D5-NS + KCL 20 MEQ INJ 1,000 ML IV SCH (10:15)
[2016-04-08 10:16] LABS: MAGNESIUM 1.5 MG/DL (1.5-2.5); POTASSIUM 3.1 MEQ/L (3.5-5.1)
[2016-04-08] MEDS: SODIUM CHLORIDE 0.9% FLUSH 5 ML FLUSH IVF SCH ×2 (10:16→22:12)
[2016-04-08] MEDS: ACETAMINOPHEN 325MG/HYDROcodone 7.5MG/15ML UDC PO PRN ×4 (10:31→22:10)
--- NOTE | 2016-04-08 11:48 | HHI.PR ---
Subjective Subjective Notes pt sleeping, no problems per brother, fever improved now that central line removed. blood cx positive. Objective Vitals/I&O Vital Signs Date Time Temp Pulse Resp B/P Pulse Ox O2 Delivery O2 Flow Rate FiO2 04/08/16 08:00 96.7 108 20 84/49 100 81/49 Labs Laboratory Tests Test 04/07/16 04/07/16 04/08/16 11:55 14:20 08:00 Potassium Level 3.0 3.1 Magnesium Level 1.1 1.5 Crossmatch Leukocyte-Reduced Red Blood Cells Blood Bank Comment White Blood Count 22.3 Red Blood Count 3.00 Hemoglobin 8.8 Hematocrit 25.3 Mean Corpuscular Volume 84.3 Mean Corpuscular Hemoglobin 29.5 Mean Corpuscular Hemoglobin 35.0 Concent Red Cell Distribution Width 15.3 Platelet Count 194 Mean Platelet Volume 6.4 Neutrophils (%) (Auto) 86.0 Lymphocytes (%) (Auto) 5.2 Monocytes (%) (Auto) 7.1 Eosinophils (%) (Auto) 1.2 Basophils (%) (Auto) 0.5 Neutrophils # (Auto) 19.1 Lymphocytes # (Auto) 1.2 Monocytes # (Auto) 1.6 Eosinophils # (Auto) 0.3 Basophils # (Auto) 0.1 CBC Comment AUTO DIFF Sodium Level 136 Chloride Level 101 Carbon Dioxide Level 28.0 Anion Gap 7 Blood Urea Nitrogen 22 Creatinine 0.98 Estimat Glomerular Filtration 87 Rate Random Glucose 94 Calcium Level 7.9 Date/Time Procedure Status Source Growth 04/06/16 17:33 Aerobic Blood Culture - Preliminary Resulted Blood Peripheral Gram Negative Dane 04/06/16 17:33 Anaerobic Blood Culture - Preliminary Resulted Blood Peripheral NO GROWTH IN 2 DAYS 04/05/16 12:45 Urine Culture - Final Complete Urine Clean Catch NO GROWTH IN 48 HOURS. 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 - Fever may also be necrotic tumor - All patient's and brother's questions were answered using translation service computer - D/W Dr Lezama and patient's brother. We do not feel transfer to [facility], intubation, or pressors are indicated due to his terminal condition. Supportive care only. Palliative care at bedside. - Palliative radiation and/or surgery will depend on patient's clinical condition. - labs stable, additional K ordered. I ATTEST AND CERTIFY THAT I PERSONALLY WENT IN THE PATIENT'S ROOM AND EXAMINED THEM. I REVIEWED THE EMR WITH THE PRE CERTIFICATION SPECIALIST AND ADVISED HER ON THE CARE PLAN. SHE DOCUMENTED THE VISIT AND ENTERED THE ORDERS IN THE EMR UNDER MY DIRECTION. HAYDEN OSEGUERA MD FACS Hayden Oseguera MD Apr 08, 2016 11:48
[2016-04-08] MEDS: MORPHINE SULFATE 4 MG/ML INJ IV SCH (12:00)
--- NOTE | 2016-04-08 13:41 | RADRPT ---
EXAM DATE/TIME: 04/08/2016 13:04 [facility] COMPARISON: No previous studies available for comparison. INDICATIONS : Right arm swelling. MEDICAL HISTORY : Hearing loss. Weight loss. Depression. Right facial tumor. Cancer. Chemotherapy. SURGICAL HISTORY : Right facial tumor biopsy. ENCOUNTER: Initial ACUITY: 1 day PAIN SCORE: 4/10 LOCATION: Right arm. FINDINGS: There is spontaneous flow documented in the brachial, basilic, cephalic, axillary, and subclavian vei ns. The vessels are compressible and augmentation response is documented. No filling defects are se en. The flow is phasic with respiration. Direction of flow in the jugular vein is caudal. CONCLUSION: No thrombus. Deshawn Michele MD on April 08, 2016 at 13:38 Board Certified Radiologist. This report was verified electronically.
[2016-04-08] MEDS: POTASSIUM CL 40 MEQ/30 ML LIQ UDC NG SCH ×2 (14:24→22:11)
[2016-04-08] MEDS: ENOXAPARIN SODIUM 30 MG/0.3 ML SYRINGE SQ SCH (14:24)
[2016-04-08] MEDS: POTASSIUM CHLOR 20 MEQ PREMIX 100 ML IV SCH ×2 (14:24→18:59)
[2016-04-08 14:30] LABS: BANDS 23 % (0-6); EOSINOPHILS 1 % (0-4); METAMYELOCYTES 1 % (0-1); NEUTROPHIL # MANUAL DIFF 18.5 TH/MM3 (1.8-7.7); POLYS (SEG NEUTROPHILS) 59 % (16-70); WBC DIFF SAMPLE 100
[2016-04-08 14:31] LABS: TOXIC GRANULATION 1+ (NORMAL)
[2016-04-08 14:32] LABS: PLATELET ESTIMATE SMEAR NORMAL (NORMAL); PLATELET MORPHOLOGY NORMAL (NORMAL); SCAN/DIFF FINAL DIFF MANUAL
[2016-04-08] MEDS ORDERED: POTASSIUM CHLOR 20 MEQ PREMIX 100 ML ONE (18:57)
[2016-04-09] VITALS (7 sets, daily range): BP systolic 88–105; BP diastolic 57–61; PULSE 96–120; RESP 16–20; TEMP 96–98.3; O2SAT 97–100
[2016-04-09] MEDS: PIPERACIL-TAZO 3.375 GM PREMIX 50 ML IV SCH ×4 (05:59→23:00)
[2016-04-09] MEDS: FREE WATER G-TUBE SCH ×3 (06:00→18:00)
[2016-04-09 08:13] LABS: AUTOMATED NEUTROPHIL # 14.9 TH/MM3 (1.8-7.7); BASOPHIL # 0.1 TH/MM3 (0-0.2); BASOPHIL % 0.4 % (0.0-2.0); EOSINOPHIL # 0.3 TH/MM3 (0-0.4); EOSINOPHIL % 1.7 % (0.0-4.0); HEMATOCRIT 26.9 % (39.0-51.0); LYMPH % 6.2 % (9.0-44.0); LYMPHOCYTE # 1.1 TH/MM3 (1.0-4.8); MEAN CELL VOLUME 84.5 FL (80.0-100.0); MEAN CORPUSCULAR HEMOGLOBIN 28.8 PG (27.0-34.0); MEAN CORPUSCULAR HGB CONC 34.1 % (32.0-36.0); MONO % 6.4 % (0.0-8.0); NEUT % 85.3 % (16.0-70.0); PLATELET COUNT 211 TH/MM3 (150-450); RED BLOOD COUNT 3.19 MIL/MM3 (4.50-5.90); RED CELL DISTRIBUTION WIDTH 15.3 % (11.6-17.2); WHITE BLOOD COUNT 17.4 TH/MM3 (4.0-11.0)
--- NOTE | 2016-04-09 08:20 | HHI.PR ---
Subjective Remarks in no acute distress. remains afebrile. pain is fairly controlled. Objective Vitals Vital Signs Date Time Temp Pulse Resp B/P Pulse Ox O2 Delivery O2 Flow Rate FiO2 04/09/16 04:00 96.0 102 17 105/59 99 04/09/16 00:00 96.0 96 17 91/59 99 04/08/16 23:31 20 04/08/16 21:00 103 04/08/16 20:00 97.0 102 18 99/65 100 04/08/16 16:34 97.6 106 20 89/54 95 04/08/16 13:21 96.3 106 16 80/50 96 I/O 04/08/16 04/08/16 04/08/16 04/09/16 04/09/16 04/09/16 07:00 15:00 23:00 07:00 15:00 23:00 Intake Total 375 ml 2965 ml 703 ml 524 ml Balance 375 ml 2965 ml 703 ml 524 ml Intake Oral 120 ml 0 ml IV Total 375 ml 371 ml 703 ml 524 ml Tube Feeding 2174 ml Other 300 ml # Voids 2 1 # Bowel Movements 1 Result Diagram: 04/08/16 0800 04/08/16 0800 Imaging Last Impressions Upper Extremity Ultrasound 04/08/16 0000 Signed Impressions: Service Date/Time: Friday, April 08, 2016 13:04 - CONCLUSION: No thrombus. Deshawn Michele MD Chest X-Ray 04/03/16 0000 Signed Impressions: Service Date/Time: Sunday, April 03, 2016 16:42 - CONCLUSION: Left subclavian venous catheter positioned in the superior vena cava with no pneumothorax Yaakov Montaño MD Neck CT 04/02/16 0000 Signed Impressions: Service Date/Time: Saturday, April 02, 2016 11:54 - CONCLUSION: Very large heterogeneous soft tissue mass along the right side of the face with gross destruction involving most of the right mandible. The mass contains amorphous calcifications and appears to involve the right sternocleidomastoid muscle. The mass appears to extend into the oral cavity with diffuse enlargement of the right tonsillar pillar. Neoplastic disease in the primary consideration. Niall Corrales MD Multiplanar Reconstruction 04/02/16 0000 Signed Impressions: Service Date/Time: Saturday, April 02, 2016 11:54 - CONCLUSION: 3-D reconstructive images demonstrating destruction involving most the right side of the mandible. Niall Corrales MD Head CT 04/02/16 0000 Signed Impressions: Service Date/Time: Saturday, April 02, 2016 11:54 - CONCLUSION: 1. Unremarkable CT scan of the brain 2. Large abnormal soft tissue mass with calcifications along the right side of the face. Niall Corrales MD Objective Remarks GENERAL: ill looking but in no acute distress HEENT; swollen right face- covered with clean dressing. CARDIOVASCULAR: Regular rate and regular rhythm without murmurs, gallops, or rubs. RESPIRATORY: Clear to auscultation. Breath sounds equal bilaterally. No wheezes , rales, or rhonchi. GASTROINTESTINAL: Abdomen soft, non-tender, nondistended. Normal, active bowel sounds MUSCULOSKELETAL: Extremities without clubbing, cyanosis, or edema. NEURO: Alert & Oriented x4 to person, place, time, situation. Moves all ext x4 Procedures central line placement PEG placement bone biopsy teeth extraction Medications and IVs Current Medications Sodium Chloride (NS 1000 ml Inj) 1,000 ml @ 75 mls/hr [id number] IV Last administered on 04/02/16 02:38; Start 04/02/16 at 01:45; Stop 04/02/16 at 08:25 ; Status DC Morphine Sulfate (Morphine Inj) 2 mg Q2H PRN IV BREAKTHROUGH PAIN Last administered on 04/02/16 02:38; Start 04/02/16 at 01:45; Stop 04/08/16 at 09:45 ; Status DC Ondansetron HCl 4 mg 4 mg Q6H PRN IV PUSH NAUSEA Last administered on 02:38; Start 04/02/16 at 01:45 Sodium Chloride 500 ml @ 0 mls/hr BOLUS ONCE IV Last administered on 04:00; Start 04/02/16 at 04:00; Stop 04/02/16 at 04:01; Status DC Potassium Chloride/Dextrose/ Sod Cl (D5-NS + KCl 20 Meq Inj) 1,000 ml @ 125 mls /hr Q8H IV Last administered on 04/03/16 11:51; Start 04/02/16 at 09:00; Stop 04/04/16 at 08:51; Status DC IV Flush (NS Flush) 2 ml UNSCH PRN IVF FLUSH AFTER USING IV ACCESS Last administered on 04/04/16 02:03; Start 04/02/16 at 08:15 IV Flush (NS Flush) 2 ml BID IVF Last administered on 04/08/16 22:12; Start at 09:00 Acetaminophen (Tylenol) 650 mg Q4H PRN PO PAIN SCALE 1 TO 10; Start 04/02/16 at 09:00; Stop 04/02/16 at 09:00; Status DC Ibuprofen (Motrin) 600 mg Q4H PRN PO PAIN SCALE 1 TO 5; Start 04/02/16 at 08:15 ; Stop 04/02/16 at 08:49; Status DC Hydromorphone HCl (Dilaudid Pf Inj) 0.5 mg Q2H PRN IV PAIN SCALE 6 TO 10; Start 04/02/16 at 08:15; Stop 04/02/16 at 08:49; Status DC Diphenhydramine HCl (Benadryl) 25 mg Q6H PRN PO ITCHING; Start 04/02/16 at 09: 00 Miscellaneous Information (Post-op Orders (for Pharmacy)) STAT ONCE XX ; Start 04/02/16 at 08:15; Stop 04/03/16 at 06:06; Status DC Miscellaneous Information 1 ONCE ONCE XX ; Start 04/02/16 at 08:15; Stop at 06:06; Status DC Enoxaparin Sodium (Lovenox Inj) 30 mg Q24H SQ Last administered on 04/08/16 14: 24; Start 04/04/16 at 15:30 Naloxone HCl (Narcan Inj) 0.4 mg UNSCH PRN IV RESPIRATORY RATE LESS THAN 10; Start 04/02/16 at 08:15; Stop 04/02/16 at 08:49; Status DC Diphenhydramine HCl (Benadryl Inj) 25 mg Q6H PRN IV ITCHING; Start 04/02/16 at 09:00; Stop 04/02/16 at 09:00; Status DC [employer] Dosage Infused (Pha) 1 Q8HR .XX ; Start 04/02/16 at 09:00; Stop 04/02/16 at 09:00; Status DC Acetaminophen/ Hydrocodone Bitart (Hycet 325-7.5 Mg Liq) 15 ml Q4H PRN PO Last administered on 04/08/16 10:31; Start 04/02/16 at 09:00; Stop 04/08/16 at 14 :40; Status DC Ibuprofen (Motrin Liq) 600 mg Q4H PRN PO PAIN SCALE 1-5; Start 04/02/16 at 09: 00; Stop 04/02/16 at 09:02; Status DC Ibuprofen 600 mg 600 mg Q4H PRN PO PAIN SCALE 1-5; Start 04/02/16 at 09:02 Sodium Chloride (NS 500 ml Inj) 500 ml @ 30 mls/hr [id number] IV ; Start 04/03/16 at 03:15; Stop 04/04/16 at 03:14; Status DC Bupivacaine HCl/ Epinephrine Bitart (Sensorcaine-Epinephrine Pf 0.25% Inj) 20 ml STK-MED ONCE .ROUTE ; Start 04/03/16 at 13:46; Stop 04/03/16 at 13:47; Status DC Chlorhexidine Gluconate (Peridex 0.12% Liq) 60 ml STK-MED ONCE .ROUTE ; Start at 13:46; Stop 04/03/16 at 13:47; Status DC Heparin Sodium (Porcine) (Heparin Inj) 10,000 units STK-MED ONCE .ROUTE ; Start 04/03/16 at 13:46; Stop 04/03/16 at 13:47; Status DC Heparin Sodium (Porcine) (Heparin Inj) 10,000 units STK-MED ONCE .ROUTE ; Start 04/03/16 at 13:46; Stop 04/03/16 at 13:47; Status DC Cefazolin Sodium (Ancef Inj) 1,000 mg STK-MED ONCE IV Last administered on 04/03 14:43; Start 04/03/16 at 14:43; Stop 04/03/16 at 15:03; Status DC Lidocaine/ Epinephrine (Xylocaine-Epi 1%-1:100,000 Inj) 50 ml STK-MED ONCE .ROUTE ; Start 04/03/16 at 15:35; Stop 04/03/16 at 15:36; Status DC Lidocaine/ Epinephrine (Xylocaine-Epi 2%-1:100,000 Inj) 30 ml STK-MED ONCE .ROUTE Last administered on 04/03/16 16:01; Start 04/03/16 at 15:35; Stop at 15:36; Status DC Microfibriller Collagen Hemostat (Avitene Powder Pack) 1 gm STK-MED ONCE .ROUTE ; Start 04/03/16 at 15:41; Stop 04/03/16 at 15:42; Status DC Fentanyl Citrate 250 mcg 250 mcg STK-MED ONCE .ROUTE ; Start 04/03/16 at 16:34; Stop 04/03/16 at 16:35; Status DC Sodium Chloride 11 meq/Sodium Acetate 59 meq/ Potassium Chloride 40 meq/ Magnesium Chloride 10 meq/ Multivitamins 10 ml/Folic Acid 1 mg/Amino Acids/ Dextrose 2,067.5261 ml @ 83 mls/hr Q24H IV-CENTRAL Last administered on 22:27; Start 04/03/16 at 20:00; Stop 04/08/16 at 09:30; Status DC Fat Emulsion Intravenous (Liposyn Iii 20% Inj) 250 ml @ 10 mls/hr Q24H IV- CENTRAL Last administered on 04/06/16 22:26; Start 04/03/16 at 20:00; Stop 04/08 at 09:31; Status DC Morphine Sulfate (*morphine INJ PERIprocedure ONLY) 8 mg STK-MED ONCE .ROUTE Last administered on 04/03/16 17:22; Start 04/03/16 at 17:22; Stop 04/03/16 at 17:23; Status DC Miscellaneous Information ALL NURSING DEPARTME... UNSCH PRN XX SEE LABEL COMMENTS; Start 04/03/16 at 16:28; Stop 04/04/16 at 16:27; Status DC Potassium Chloride 100 ml @ 50 mls/hr Q2H IV Last administered on 04/04/16 01 :52; Start 04/03/16 at 21:45; Stop 04/04/16 at 01:44; Status DC Magnesium Sulfate/ Dextrose (Magnesium Sulfate 1 Gm Premix) 100 ml @ 100 mls/ hr Q1H IV Last administered on 04/04/16 00:16; Start 04/03/16 at 21:45; Stop 04/03/16 at 23:44; Status DC Water (Free Water) VOLUME: 200 ML Q6HR G-TUBE Last administered on 04/09/16 06: 00; Start 04/04/16 at 08:45 Potassium Chloride (KCl 40 Meq/30 ml Liq) 40 meq ONCE ONCE PEG Last administered on 04/04/16 10:45; Start 04/04/16 at 10:45; Stop 04/04/16 at 10:50 ; Status DC Propofol (Diprivan 200 Mg/20 ml Inj) 200 mg STK-MED ONCE IV ; Start 04/03/16 at 10:46; Stop 04/04/16 at 10:46; Status DC Phenylephrine HCl (Neosynephrine/ NS 1000 Mcg/10ml Syr) 1,000 mcg STK-MED ONCE IV ; Start 04/03/16 at 10:46; Stop 04/04/16 at 10:46; Status DC Ondansetron HCl 4 mg 4 mg STK-MED ONCE IV PUSH ; Start 04/03/16 at 10:46; Stop 04/04/16 at 10:46; Status DC Lactated Ringer's 1,000 ml @ As Directed STK-MED ONCE IV ; Start 04/03/16 at 10 :46; Stop 04/04/16 at 10:46; Status DC Pamidronate Disodium/Sodium Chloride (Aredia Inj/NS 1000 ml Inj) 1,000 ml @ 42 mls/hr ONCE ONCE IV Last administered on 04/04/16 23:37; Start 04/04/16 at 22 :00; Stop 04/05/16 at 21:48; Status DC Potassium Chloride 40 meq 40 meq ONCE ONCE PEG Last administered on 04/05/16 15:12; Start 04/05/16 at 12:00; Stop 04/05/16 at 12:01; Status DC Levofloxacin/ Dextrose 100 ml @ 100 mls/hr Q24H IV Last administered on 22:27; Start 04/06/16 at 18:00; Stop 04/07/16 at 09:06; Status DC Sodium Chloride (NS 1000 ml Inj) 1,000 ml @ 0 mls/hr BOLUS ONCE IV Last administered on 04/07/16 01:00; Start 04/07/16 at 01:00; Stop 04/07/16 at 01:01; Status DC Acetaminophen (Tylenol) 650 mg Q4H PRN PO FEVER OVER 101.0 Last administered on 04/07/16 21:31; Start 04/07/16 at 01:45 Metoprolol Tartrate 25 mg 25 mg ONCE ONCE PO Last administered on 04/07/16 03: 16; Start 04/07/16 at 03:15; Stop 04/07/16 at 03:16; Status DC Potassium Chloride/Dextrose/ Sod Cl (D5-NS + KCl 20 Meq Inj) 1,000 ml @ 42 mls/ hr [id number] IV Last administered on 04/08/16 10:15; Start 04/07/16 at 07:45 Potassium Chloride 40 meq 40 meq ONCE ONCE PO Last administered on 04/07/16 08 :15; Start 04/07/16 at 08:15; Stop 04/07/16 at 08:18; Status DC Cefepime HCl 2000 mg/Sodium Chloride 100 ml @ 200 mls/hr Q12H IV Last administered on 04/07/16 09:00; Start 04/07/16 at 09:00; Stop 04/07/16 at 09:07; Status DC Piperacillin Sod/ Tazobactam Sod 50 ml @ 100 mls/hr Q6H IV Last administered on 04/09/16 05:59; Start 04/07/16 at 11:00 Magnesium Sulfate/ Dextrose (Magnesium Sulfate 1 Gm Premix) 100 ml @ 100 mls/ hr ONCE ONCE IV Last administered on 04/07/16 15:30; Start 04/07/16 at 13:15; Stop 04/07/16 at 14:14; Status DC Potassium Chloride (KCl 40 Meq/30 ml Liq) 40 meq ONCE ONCE PEG Last administered on 04/07/16 15:30; Start 04/07/16 at 13:15; Stop 04/07/16 at 13:16; Status DC Lidocaine HCl (Xylocaine 1% Inj (50 ml)) 50 ml STK-MED ONCE .ROUTE ; Start at 15:46; Stop 04/07/16 at 15:47; Status DC Metoprolol Tartrate (Lopressor) 25 mg ONCE ONCE PO ; Start 04/08/16 at 00:15; Stop 04/08/16 at 00:16; Status DC Morphine Sulfate (Morphine Inj) 2 mg Q4HR IV ; Start 04/08/16 at 12:00; Status Hold Morphine Sulfate 2 mg 2 mg Q2HR PRN IV PUSH PAIN SCALE 9 TO 10; Start 04/08/16 at 09:00 Potassium Chloride (KCl 20 Meq Premix Inj) 100 ml @ 50 mls/hr Q2H IV Last administered on 04/08/16 18:59; Start 04/08/16 at 12:00; Stop 04/08/16 at 15:59; Status DC Potassium Chloride (KCl 40 Meq/30 ml Liq) 40 meq Q12HR NG Last administered on 04/08/16 22:11; Start 04/08/16 at 12:00 Acetaminophen/ Hydrocodone Bitart 15 ml 15 ml Q3HR PRN PO pain1-9 Last administered on 04/08/16 22:10; Start 04/08/16 at 14:45 Potassium Chloride (KCl 20 Meq Premix Inj) 100 ml @ As Directed STK-MED ONCE .ROUTE ; Start 04/08/16 at 18:57; Stop 04/08/16 at 18:58; Status DC A/P Assessment and Plan 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 The mass contains amorphous calcifications and appears to involve the right sternocleidomastoid muscle. The mass appears to extend into the oral cavity with diffuse enlargement of the right tonsillar pillar. 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 had CT simulation for radiation. continue with pain control. general and facial surgery following. -sepsis with possible right facial wound and central line as the source- now fever has resolved one bottle of blood cultures with gram negative ila- continue IV Zosyn- central line discontinued- will repeat the blood cultures today- consider ID consult. will monitor the temps- -acute kidney injury/ hypercalcemia / hyponatremia due to dehydration- received a dose of Aradia - improved - will monitor -anemia- s/p PRBC transfusion- will monitor H/H- -hypokalemia;replaced- will monitor -severe malnutrition- s/p PEG placement-started on tube feeding - cooper helper consulted. -DVT prophylaxis with lovenox patient is ill looking. palliative care consult appreciated. Meredith Acosta MD Apr 09, 2016 08:20
[2016-04-09 08:42] LABS: BICARBONATE 28.6 MEQ/L (21.0-32.0); POTASSIUM 3.6 MEQ/L (3.5-5.1)
[2016-04-09 08:45] LABS: HEMO FLAGS AUTO DIFF
[2016-04-09 08:57] LABS: CALCIUM-PROTEIN CORRECTED 8.1 MG/DL (8.5-10.1)
[2016-04-09] MEDS: SODIUM CHLORIDE 0.9% FLUSH 5 ML FLUSH IVF SCH ×2 (09:00→20:58)
[2016-04-09] MEDS: POTASSIUM CL 40 MEQ/30 ML LIQ UDC NG SCH ×2 (10:15→20:48)
[2016-04-09 12:20] LABS: BANDS 7 % (0-6); EOSINOPHILS 1 % (0-4); NEUTROPHIL # MANUAL DIFF 15.5 TH/MM3 (1.8-7.7); PLATELET ESTIMATE SMEAR NORMAL (NORMAL); PLATELET MORPHOLOGY NORMAL (NORMAL); POLYS (SEG NEUTROPHILS) 82 % (16-70); SCAN/DIFF FINAL DIFF MANUAL; WBC DIFF SAMPLE 100
[2016-04-09] MEDS: D5-NS + KCL 20 MEQ INJ 1,000 ML IV SCH (13:12)
[2016-04-09] MEDS: ACETAMINOPHEN 325MG/HYDROcodone 7.5MG/15ML UDC PO PRN ×2 (14:31→20:48)
[2016-04-09] MEDS: ENOXAPARIN SODIUM 30 MG/0.3 ML SYRINGE SQ SCH (15:30)
--- NOTE | 2016-04-09 20:22 | HHI.PR ---
Subjective Subjective Notes no acute issues, wbc improving, no fevers Objective Vitals/I&O Vital Signs Date Time Temp Pulse Resp B/P Pulse Ox O2 Delivery O2 Flow Rate FiO2 04/09/16 17:01 96.3 110 20 95/61 98 Labs Laboratory Tests Test 04/09/16 07:00 White Blood Count 17.4 Red Blood Count 3.19 Hemoglobin 9.2 Hematocrit 26.9 Mean Corpuscular Volume 84.5 Mean Corpuscular Hemoglobin 28.8 Mean Corpuscular Hemoglobin 34.1 Concent Red Cell Distribution Width 15.3 Platelet Count 211 Mean Platelet Volume 6.2 Neutrophils (%) (Auto) 85.3 Lymphocytes (%) (Auto) 6.2 Monocytes (%) (Auto) 6.4 Eosinophils (%) (Auto) 1.7 Basophils (%) (Auto) 0.4 Neutrophils # (Auto) 14.9 Lymphocytes # (Auto) 1.1 Monocytes # (Auto) 1.1 Eosinophils # (Auto) 0.3 Basophils # (Auto) 0.1 CBC Comment AUTO DIFF Differential Total Cells 100 Counted Neutrophils % (Manual) 82 Band Neutrophils % 7 Lymphocytes % 6 Monocytes % 4 Eosinophils % 1 Neutrophils # (Manual) 15.5 Differential Comment FINAL DIFF MANUAL Platelet Estimate NORMAL Platelet Morphology Comment NORMAL Sodium Level 138 Potassium Level 3.6 Chloride Level 104 Carbon Dioxide Level 28.6 Anion Gap 5 Blood Urea Nitrogen 16 Creatinine 0.82 Estimat Glomerular Filtration 106 Rate Random Glucose 102 Calcium Level 7.2 Protein Corrected Calcium 8.1 Total Protein 5.4 Date/Time Procedure Status Source Growth 04/09/16 10:55 Aerobic Blood Culture Received Blood Peripheral Pending 04/09/16 10:55 Anaerobic Blood Culture Received Blood Peripheral Pending 04/06/16 17:33 Aerobic Blood Culture - Preliminary Resulted Blood Peripheral Gram Negative Dane 04/06/16 17:33 Anaerobic Blood Culture - Preliminary Resulted Blood Peripheral NO GROWTH IN 3 DAYS 04/05/16 12:45 Urine Culture - Final Complete Urine Clean Catch NO GROWTH IN 48 HOURS. 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
[2016-04-10] VITALS (7 sets, daily range): BP systolic 81–96; BP diastolic 45–58; PULSE 99–108; RESP 18–20; TEMP 96.5–98.4; O2SAT 98–100
[2016-04-10] MEDS: PIPERACIL-TAZO 3.375 GM PREMIX 50 ML IV SCH ×5 (05:15→23:28)
[2016-04-10] MEDS: FREE WATER G-TUBE SCH ×5 (05:23→23:20)
[2016-04-10] MEDS: D5-NS + KCL 20 MEQ INJ 1,000 ML IV SCH (07:12)
--- NOTE | 2016-04-10 07:42 | HHI.PR ---
Subjective Remarks in no acute distress. pain is fairly controlled. no fever. Objective Vitals Vital Signs Date Time Temp Pulse Resp B/P Pulse Ox O2 Delivery O2 Flow Rate FiO2 04/10/16 04:00 97.9 104 18 91/51 99 04/10/16 00:00 98.3 106 18 92/56 98 04/09/16 20:36 101 04/09/16 20:00 97.6 103 18 90/57 100 04/09/16 17:01 96.3 110 20 95/61 98 04/09/16 14:32 97.3 120 16 99/61 100 04/09/16 09:00 98.3 110 18 88/61 97 I/O 04/09/16 04/09/16 04/09/16 04/10/16 04/10/16 04/10/16 07:00 15:00 23:00 07:00 15:00 23:00 Intake Total 524 ml 0 ml 780 ml 1040 ml Balance 524 ml 0 ml 780 ml 1040 ml Intake Oral 0 ml IV Total 524 ml 335 ml 325 ml Tube Feeding 385 ml 315 ml Other 60 ml 400 ml # Voids 1 2 Result Diagram: 04/09/16 0700 04/09/16 0700 Imaging Last Impressions Upper Extremity Ultrasound 04/08/16 0000 Signed Impressions: Service Date/Time: Friday, April 08, 2016 13:04 - CONCLUSION: No thrombus. Deshawn Michele MD Chest X-Ray 04/03/16 0000 Signed Impressions: Service Date/Time: Sunday, April 03, 2016 16:42 - CONCLUSION: Left subclavian venous catheter positioned in the superior vena cava with no pneumothorax Yaakov Montaño MD Neck CT 04/02/16 0000 Signed Impressions: Service Date/Time: Saturday, April 02, 2016 11:54 - CONCLUSION: Very large heterogeneous soft tissue mass along the right side of the face with gross destruction involving most of the right mandible. The mass contains amorphous calcifications and appears to involve the right sternocleidomastoid muscle. The mass appears to extend into the oral cavity with diffuse enlargement of the right tonsillar pillar. Neoplastic disease in the primary consideration. Niall Corrales MD Multiplanar Reconstruction 04/02/16 0000 Signed Impressions: Service Date/Time: Saturday, April 02, 2016 11:54 - CONCLUSION: 3-D reconstructive images demonstrating destruction involving most the right side of the mandible. Niall Corrales MD Head CT 04/02/16 0000 Signed Impressions: Service Date/Time: Saturday, April 02, 2016 11:54 - CONCLUSION: 1. Unremarkable CT scan of the brain 2. Large abnormal soft tissue mass with calcifications along the right side of the face. Niall Corrales MD Objective Remarks GENERAL: ill looking but in no acute distress HEENT; swollen right face- covered with clean dressing. CARDIOVASCULAR: Regular rate and regular rhythm without murmurs, gallops, or rubs. RESPIRATORY: Clear to auscultation. Breath sounds equal bilaterally. No wheezes , rales, or rhonchi. GASTROINTESTINAL: Abdomen soft, non-tender, nondistended. Normal, active bowel sounds MUSCULOSKELETAL: Extremities without clubbing, cyanosis, or edema. NEURO: Alert & Oriented x4 to person, place, time, situation. Moves all ext x4 Procedures central line placement PEG placement bone biopsy teeth extraction Medications and IVs Current Medications Sodium Chloride (NS 1000 ml Inj) 1,000 ml @ 75 mls/hr [id number] IV Last administered on 04/02/16 02:38; Start 04/02/16 at 01:45; Stop 04/02/16 at 08:25 ; Status DC Morphine Sulfate (Morphine Inj) 2 mg Q2H PRN IV BREAKTHROUGH PAIN Last administered on 04/02/16 02:38; Start 04/02/16 at 01:45; Stop 04/08/16 at 09:45 ; Status DC Ondansetron HCl 4 mg 4 mg Q6H PRN IV PUSH NAUSEA Last administered on 02:38; Start 04/02/16 at 01:45 Sodium Chloride 500 ml @ 0 mls/hr BOLUS ONCE IV Last administered on 04:00; Start 04/02/16 at 04:00; Stop 04/02/16 at 04:01; Status DC Potassium Chloride/Dextrose/ Sod Cl (D5-NS + KCl 20 Meq Inj) 1,000 ml @ 125 mls /hr Q8H IV Last administered on 04/03/16 11:51; Start 04/02/16 at 09:00; Stop 04/04/16 at 08:51; Status DC IV Flush (NS Flush) 2 ml UNSCH PRN IVF FLUSH AFTER USING IV ACCESS Last administered on 04/04/16 02:03; Start 04/02/16 at 08:15 IV Flush (NS Flush) 2 ml BID IVF Last administered on 04/09/16 20:58; Start at 09:00 Acetaminophen (Tylenol) 650 mg Q4H PRN PO PAIN SCALE 1 TO 10; Start 04/02/16 at 09:00; Stop 04/02/16 at 09:00; Status DC Ibuprofen (Motrin) 600 mg Q4H PRN PO PAIN SCALE 1 TO 5; Start 04/02/16 at 08:15 ; Stop 04/02/16 at 08:49; Status DC Hydromorphone HCl (Dilaudid Pf Inj) 0.5 mg Q2H PRN IV PAIN SCALE 6 TO 10; Start 04/02/16 at 08:15; Stop 04/02/16 at 08:49; Status DC Diphenhydramine HCl (Benadryl) 25 mg Q6H PRN PO ITCHING; Start 04/02/16 at 09: 00 Miscellaneous Information (Post-op Orders (for Pharmacy)) STAT ONCE XX ; Start 04/02/16 at 08:15; Stop 04/03/16 at 06:06; Status DC Miscellaneous Information 1 ONCE ONCE XX ; Start 04/02/16 at 08:15; Stop at 06:06; Status DC Enoxaparin Sodium (Lovenox Inj) 30 mg Q24H SQ Last administered on 04/08/16 14: 24; Start 04/04/16 at 15:30 Naloxone HCl (Narcan Inj) 0.4 mg UNSCH PRN IV RESPIRATORY RATE LESS THAN 10; Start 04/02/16 at 08:15; Stop 04/02/16 at 08:49; Status DC Diphenhydramine HCl (Benadryl Inj) 25 mg Q6H PRN IV ITCHING; Start 04/02/16 at 09:00; Stop 04/02/16 at 09:00; Status DC RN CHILD Dosage Infused (Pha) 1 Q8HR .XX ; Start 04/02/16 at 09:00; Stop 04/02/16 at 09:00; Status DC Acetaminophen/ Hydrocodone Bitart (Hycet 325-7.5 Mg Liq) 15 ml Q4H PRN PO Last administered on 04/08/16 10:31; Start 04/02/16 at 09:00; Stop 04/08/16 at 14 :40; Status DC Ibuprofen (Motrin Liq) 600 mg Q4H PRN PO PAIN SCALE 1-5; Start 04/02/16 at 09: 00; Stop 04/02/16 at 09:02; Status DC Ibuprofen 600 mg 600 mg Q4H PRN PO PAIN SCALE 1-5; Start 04/02/16 at 09:02 Sodium Chloride (NS 500 ml Inj) 500 ml @ 30 mls/hr [id number] IV ; Start 04/03/16 at 03:15; Stop 04/04/16 at 03:14; Status DC Bupivacaine HCl/ Epinephrine Bitart (Sensorcaine-Epinephrine Pf 0.25% Inj) 20 ml STK-MED ONCE .ROUTE ; Start 04/03/16 at 13:46; Stop 04/03/16 at 13:47; Status DC Chlorhexidine Gluconate (Peridex 0.12% Liq) 60 ml STK-MED ONCE .ROUTE ; Start at 13:46; Stop 04/03/16 at 13:47; Status DC Heparin Sodium (Porcine) (Heparin Inj) 10,000 units STK-MED ONCE .ROUTE ; Start 04/03/16 at 13:46; Stop 04/03/16 at 13:47; Status DC Heparin Sodium (Porcine) (Heparin Inj) 10,000 units STK-MED ONCE .ROUTE ; Start 04/03/16 at 13:46; Stop 04/03/16 at 13:47; Status DC Cefazolin Sodium (Ancef Inj) 1,000 mg STK-MED ONCE IV Last administered on 04/03 14:43; Start 04/03/16 at 14:43; Stop 04/03/16 at 15:03; Status DC Lidocaine/ Epinephrine (Xylocaine-Epi 1%-1:100,000 Inj) 50 ml STK-MED ONCE .ROUTE ; Start 04/03/16 at 15:35; Stop 04/03/16 at 15:36; Status DC Lidocaine/ Epinephrine (Xylocaine-Epi 2%-1:100,000 Inj) 30 ml STK-MED ONCE .ROUTE Last administered on 04/03/16 16:01; Start 04/03/16 at 15:35; Stop at 15:36; Status DC Microfibriller Collagen Hemostat (Avitene Powder Pack) 1 gm STK-MED ONCE .ROUTE ; Start 04/03/16 at 15:41; Stop 04/03/16 at 15:42; Status DC Fentanyl Citrate 250 mcg 250 mcg STK-MED ONCE .ROUTE ; Start 04/03/16 at 16:34; Stop 04/03/16 at 16:35; Status DC Sodium Chloride 11 meq/Sodium Acetate 59 meq/ Potassium Chloride 40 meq/ Magnesium Chloride 10 meq/ Multivitamins 10 ml/Folic Acid 1 mg/Amino Acids/ Dextrose 2,067.5261 ml @ 83 mls/hr Q24H IV-CENTRAL Last administered on 22:27; Start 04/03/16 at 20:00; Stop 04/08/16 at 09:30; Status DC Fat Emulsion Intravenous (Liposyn Iii 20% Inj) 250 ml @ 10 mls/hr Q24H IV- CENTRAL Last administered on 04/06/16 22:26; Start 04/03/16 at 20:00; Stop 04/08 at 09:31; Status DC Morphine Sulfate (*morphine INJ PERIprocedure ONLY) 8 mg STK-MED ONCE .ROUTE Last administered on 04/03/16 17:22; Start 04/03/16 at 17:22; Stop 04/03/16 at 17:23; Status DC Miscellaneous Information ALL NURSING DEPARTME... UNSCH PRN XX SEE LABEL COMMENTS; Start 04/03/16 at 16:28; Stop 04/04/16 at 16:27; Status DC Potassium Chloride 100 ml @ 50 mls/hr Q2H IV Last administered on 04/04/16 01 :52; Start 04/03/16 at 21:45; Stop 04/04/16 at 01:44; Status DC Magnesium Sulfate/ Dextrose (Magnesium Sulfate 1 Gm Premix) 100 ml @ 100 mls/ hr Q1H IV Last administered on 04/04/16 00:16; Start 04/03/16 at 21:45; Stop 04/03/16 at 23:44; Status DC Water (Free Water) VOLUME: 200 ML Q6HR G-TUBE Last administered on 04/10/16 05: 23; Start 04/04/16 at 08:45 Potassium Chloride (KCl 40 Meq/30 ml Liq) 40 meq ONCE ONCE PEG Last administered on 04/04/16 10:45; Start 04/04/16 at 10:45; Stop 04/04/16 at 10:50 ; Status DC Propofol (Diprivan 200 Mg/20 ml Inj) 200 mg STK-MED ONCE IV ; Start 04/03/16 at 10:46; Stop 04/04/16 at 10:46; Status DC Phenylephrine HCl (Neosynephrine/ NS 1000 Mcg/10ml Syr) 1,000 mcg STK-MED ONCE IV ; Start 04/03/16 at 10:46; Stop 04/04/16 at 10:46; Status DC Ondansetron HCl 4 mg 4 mg STK-MED ONCE IV PUSH ; Start 04/03/16 at 10:46; Stop 04/04/16 at 10:46; Status DC Lactated Ringer's 1,000 ml @ As Directed STK-MED ONCE IV ; Start 04/03/16 at 10 :46; Stop 04/04/16 at 10:46; Status DC Pamidronate Disodium/Sodium Chloride (Aredia Inj/NS 1000 ml Inj) 1,000 ml @ 42 mls/hr ONCE ONCE IV Last administered on 04/04/16 23:37; Start 04/04/16 at 22 :00; Stop 04/05/16 at 21:48; Status DC Potassium Chloride 40 meq 40 meq ONCE ONCE PEG Last administered on 04/05/16 15:12; Start 04/05/16 at 12:00; Stop 04/05/16 at 12:01; Status DC Levofloxacin/ Dextrose 100 ml @ 100 mls/hr Q24H IV Last administered on 22:27; Start 04/06/16 at 18:00; Stop 04/07/16 at 09:06; Status DC Sodium Chloride (NS 1000 ml Inj) 1,000 ml @ 0 mls/hr BOLUS ONCE IV Last administered on 04/07/16 01:00; Start 04/07/16 at 01:00; Stop 04/07/16 at 01:01; Status DC Acetaminophen (Tylenol) 650 mg Q4H PRN PO FEVER OVER 101.0 Last administered on 04/07/16 21:31; Start 04/07/16 at 01:45 Metoprolol Tartrate 25 mg 25 mg ONCE ONCE PO Last administered on 04/07/16 03: 16; Start 04/07/16 at 03:15; Stop 04/07/16 at 03:16; Status DC Potassium Chloride/Dextrose/ Sod Cl (D5-NS + KCl 20 Meq Inj) 1,000 ml @ 42 mls/ hr [id number] IV Last administered on 04/09/16 13:12; Start 04/07/16 at 07:45 Potassium Chloride 40 meq 40 meq ONCE ONCE PO Last administered on 04/07/16 08 :15; Start 04/07/16 at 08:15; Stop 04/07/16 at 08:18; Status DC Cefepime HCl 2000 mg/Sodium Chloride 100 ml @ 200 mls/hr Q12H IV Last administered on 04/07/16 09:00; Start 04/07/16 at 09:00; Stop 04/07/16 at 09:07; Status DC Piperacillin Sod/ Tazobactam Sod 50 ml @ 100 mls/hr Q6H IV Last administered on 04/10/16 05:15; Start 04/07/16 at 11:00 Magnesium Sulfate/ Dextrose (Magnesium Sulfate 1 Gm Premix) 100 ml @ 100 mls/ hr ONCE ONCE IV Last administered on 04/07/16 15:30; Start 04/07/16 at 13:15; Stop 04/07/16 at 14:14; Status DC Potassium Chloride (KCl 40 Meq/30 ml Liq) 40 meq ONCE ONCE PEG Last administered on 04/07/16 15:30; Start 04/07/16 at 13:15; Stop 04/07/16 at 13:16; Status DC Lidocaine HCl (Xylocaine 1% Inj (50 ml)) 50 ml STK-MED ONCE .ROUTE ; Start at 15:46; Stop 04/07/16 at 15:47; Status DC Metoprolol Tartrate (Lopressor) 25 mg ONCE ONCE PO ; Start 04/08/16 at 00:15; Stop 04/08/16 at 00:16; Status DC Morphine Sulfate (Morphine Inj) 2 mg Q4HR IV ; Start 04/08/16 at 12:00; Status Hold Morphine Sulfate 2 mg 2 mg Q2HR PRN IV PUSH PAIN SCALE 9 TO 10; Start 04/08/16 at 09:00 Potassium Chloride (KCl 20 Meq Premix Inj) 100 ml @ 50 mls/hr Q2H IV Last administered on 04/08/16 18:59; Start 04/08/16 at 12:00; Stop 04/08/16 at 15:59; Status DC Potassium Chloride (KCl 40 Meq/30 ml Liq) 40 meq Q12HR NG Last administered on 04/09/16 20:48; Start 04/08/16 at 12:00 Acetaminophen/ Hydrocodone Bitart 15 ml 15 ml Q3HR PRN PO pain1-9 Last administered on 04/09/16 20:48; Start 04/08/16 at 14:45 Potassium Chloride (KCl 20 Meq Premix Inj) 100 ml @ As Directed STK-MED ONCE .ROUTE ; Start 04/08/16 at 18:57; Stop 04/08/16 at 18:58; Status DC A/P Assessment and Plan 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 The mass contains amorphous calcifications and appears to involve the right sternocleidomastoid muscle. The mass appears to extend into the oral cavity with diffuse enlargement of the right tonsillar pillar. 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 continue with pain control. general and facial surgery following. -sepsis with possible right facial wound and central line as the source- now fever has resolved one bottle of blood cultures with gram negative ila- continue IV Zosyn- central line discontinued- repeated blood cultures 04/09 pending- consider ID consult. will monitor the temps- -acute kidney injury/ hypercalcemia / hyponatremia due to dehydration- received a dose of Aradia - improved - will monitor -anemia- s/p PRBC transfusion- will monitor H/H- -hypokalemia;replaced- will monitor -severe malnutrition- s/p PEG placement-started on tube feeding - feeder/folder consulted. -DVT prophylaxis with lovenox palliative care consult appreciated. Meredith Acosta MD Apr 10, 2016 07:42
[2016-04-10] MEDS: POTASSIUM CL 40 MEQ/30 ML LIQ UDC NG SCH ×2 (08:07→21:18)
[2016-04-10] MEDS: SODIUM CHLORIDE 0.9% FLUSH 5 ML FLUSH IVF SCH ×2 (08:07→21:18)
[2016-04-10] MEDS: ACETAMINOPHEN 325MG/HYDROcodone 7.5MG/15ML UDC PO PRN ×2 (08:16→17:39)
--- NOTE | 2016-04-10 08:35 | HHI.PR ---
Subjective Subjective Notes no problems, fever resolved, tolerating TF, bowels working Objective Vitals/I&O Vital Signs Date Time Temp Pulse Resp B/P Pulse Ox O2 Delivery O2 Flow Rate FiO2 04/10/16 07:34 98.4 104 20 85/54 99 Labs Date/Time Procedure Status Source Growth 04/09/16 10:55 Aerobic Blood Culture Received Blood Peripheral Pending 04/09/16 10:55 Anaerobic Blood Culture Received Blood Peripheral Pending 04/06/16 17:33 Aerobic Blood Culture - Preliminary Resulted Blood Peripheral Gram Negative Dane 04/06/16 17:33 Anaerobic Blood Culture - Preliminary Resulted Blood Peripheral NO GROWTH IN 3 DAYS 04/05/16 12:45 Urine Culture - Final Complete Urine Clean Catch NO GROWTH IN 48 HOURS. 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 - Fever may also be necrotic tumor - All patient's and brother's questions were answered using translation service computer - D/W Dr Lezama and patient's brother. We do not feel transfer to C, intubation, or pressors are indicated due to his terminal condition. Supportive care only. Palliative care at bedside. - Palliative radiation and/or surgery will depend on patient's clinical condition. Hopefully will start this week - labs stable I ATTEST AND CERTIFY THAT I PERSONALLY WENT IN THE PATIENT'S ROOM AND EXAMINED THEM. I REVIEWED THE EMR WITH THE ELECTRICAL APPLIANCE REPAIRER AND ADVISED HER ON THE CARE PLAN. SHE DOCUMENTED THE VISIT AND ENTERED THE ORDERS IN THE EMR UNDER MY DIRECTION. HAYDEN OSEGUERA MD FACS Hayden Oseguera MD Apr 10, 2016 08:34
[2016-04-10 09:19] LABS: BASOPHIL # 0.1 TH/MM3 (0-0.2); BASOPHIL % 0.5 % (0.0-2.0); EOSINOPHIL # 0.3 TH/MM3 (0-0.4); EOSINOPHIL % 1.6 % (0.0-4.0); HEMATOCRIT 27.5 % (39.0-51.0); LYMPH % 6.6 % (9.0-44.0); LYMPHOCYTE # 1.2 TH/MM3 (1.0-4.8); MEAN CELL VOLUME 85.7 FL (80.0-100.0); MEAN CORPUSCULAR HGB CONC 33.9 % (32.0-36.0); MONO % 6.4 % (0.0-8.0); NEUT % 84.9 % (16.0-70.0); PLATELET COUNT 251 TH/MM3 (150-450); RED BLOOD COUNT 3.21 MIL/MM3 (4.50-5.90); RED CELL DISTRIBUTION WIDTH 15.7 % (11.6-17.2); WHITE BLOOD COUNT 17.6 TH/MM3 (4.0-11.0)
[2016-04-10 09:20] LABS: HEMO FLAGS AUTO DIFF
[2016-04-10 09:24] LABS: INTERNATIONAL NORMALIZED RATIO 1.2 RATIO; PROTHROMBIN TIME - PATIENT 13.3 SEC (9.8-11.6)
[2016-04-10 10:03] LABS: BANDS 1 % (0-6); BASOPHILS 1 % (0-2); EOSINOPHILS 3 % (0-4); METAMYELOCYTES 3 % (0-1); NEUTROPHIL # MANUAL DIFF 15.5 TH/MM3 (1.8-7.7); POLYS (SEG NEUTROPHILS) 84 % (16-70); WBC DIFF SAMPLE 100
[2016-04-10 10:04] LABS: PLATELET ESTIMATE SMEAR NORMAL (NORMAL); PLATELET MORPHOLOGY NORMAL (NORMAL); SCAN/DIFF FINAL DIFF MANUAL
[2016-04-10 10:11] LABS: MAGNESIUM 1.1 MG/DL (1.5-2.5); POTASSIUM 3.2 MEQ/L (3.5-5.1); TOTAL BILIRUBIN ADULT 0.5 MG/DL (0.2-1.0)
[2016-04-10 10:28] LABS: CALCIUM-PROTEIN CORRECTED 6.8 MG/DL (8.5-10.1)
--- NOTE | 2016-04-10 10:34 | HHI.PR ---
Subjective Remarks POD 7 s/p biopsy mass right face/extraction of mandibular teeth pt seen and examined. AAOx3, NAD to face brother/nurse at bedside Objective Vital Signs Date Time Temp Pulse Resp B/P Pulse Ox O2 Delivery O2 Flow Rate FiO2 04/10/16 07:34 98.4 104 20 85/54 99 04/10/16 04:00 97.9 104 18 91/51 99 04/10/16 00:00 98.3 106 18 92/56 98 04/09/16 20:36 101 04/09/16 20:00 97.6 103 18 90/57 100 04/09/16 17:01 96.3 110 20 95/61 98 04/09/16 14:32 97.3 120 16 99/61 100 I/O 04/09/16 04/09/16 04/09/16 04/10/16 04/10/16 04/10/16 07:00 15:00 23:00 07:00 15:00 23:00 Intake Total 524 ml 0 ml 780 ml 1040 ml Balance 524 ml 0 ml 780 ml 1040 ml Intake Oral 0 ml IV Total 524 ml 335 ml 325 ml Tube Feeding 385 ml 315 ml Other 60 ml 400 ml # Voids 1 2 Result Diagram: 04/10/16 0802 04/09/16 0700 Objective Remarks dressing in place , wound/mass hemostatic right face, site stable intraorally, extraction sites hemostatic, healing wound margins well approximated, trach midline Assessment and Plan Assessment and Plan mass right face/mandible region s/p extraction of teeth/biopsy pod 7 s/p peg tube/central line invasive squamous cell carcinoma keratinizing continue dressing changes pad/chemo pending d/w brother/pt plan for sx s/p rad/chemo - translated by [employer] service - lithographic press operator apprentice Otilia Childs all questions/concerns addressed will follow weekly at this time Joseph Macias DMD Apr 10, 2016 10:13
--- NOTE | 2016-04-10 12:48 | PD.ONC.PN ---
Subjective Subjective Remarks Afebrile overnight. Patient resting comfortably. Brother at bedside. Translation service used to speak with patient and brother (Shayna [id number]). Patient and brother are concerned about when radiation will begin. They are eager to have some type of treatment. Objective Data Date Time Temp Pulse Resp B/P Pulse Ox O2 Delivery O2 Flow Rate FiO2 04/10/16 07:34 98.4 104 20 85/54 99 04/10/16 04:00 97.9 104 18 91/51 99 04/10/16 00:00 98.3 106 18 92/56 98 04/09/16 20:36 101 04/09/16 20:00 97.6 103 18 90/57 100 04/09/16 17:01 96.3 110 20 95/61 98 04/09/16 14:32 97.3 120 16 99/61 100 Result Diagram: 04/10/16 0802 04/10/16 0802 Laboratory Results Laboratory Tests Test 04/10/16 08:02 White Blood Count 17.6 TH/MM3 Red Blood Count 3.21 MIL/MM3 Hemoglobin 9.3 GM/DL Hematocrit 27.5 % Mean Corpuscular Volume 85.7 FL Mean Corpuscular Hemoglobin 29.0 PG Mean Corpuscular Hemoglobin 33.9 % Concent Red Cell Distribution Width 15.7 % Platelet Count 251 TH/MM3 Mean Platelet Volume 6.4 FL Neutrophils (%) (Auto) 84.9 % Lymphocytes (%) (Auto) 6.6 % Monocytes (%) (Auto) 6.4 % Eosinophils (%) (Auto) 1.6 % Basophils (%) (Auto) 0.5 % Neutrophils # (Auto) 15.0 TH/MM3 Lymphocytes # (Auto) 1.2 TH/MM3 Monocytes # (Auto) 1.1 TH/MM3 Eosinophils # (Auto) 0.3 TH/MM3 Basophils # (Auto) 0.1 TH/MM3 CBC Comment AUTO DIFF Differential Total Cells 100 Counted Neutrophils % (Manual) 84 % Band Neutrophils % 1 % Lymphocytes % 2 % Monocytes % 6 % Eosinophils % 3 % Basophils % 1 % Neutrophils # (Manual) 15.5 TH/MM3 Metamyelocytes 3 % Differential Comment FINAL DIFF MANUAL Platelet Estimate NORMAL Platelet Morphology Comment NORMAL Red Cell Morphology Comment NORMAL Prothrombin Time 13.3 SEC Prothromb Time International 1.2 RATIO Ratio Sodium Level 138 MEQ/L Potassium Level 3.2 MEQ/L Chloride Level 103 MEQ/L Carbon Dioxide Level 26.0 MEQ/L Anion Gap 9 MEQ/L Blood Urea Nitrogen 12 MG/DL Creatinine 0.76 MG/DL Estimat Glomerular Filtration 116 ML/MIN Rate Random Glucose 104 MG/DL Calcium Level 6.2 MG/DL Protein Corrected Calcium 6.8 MG/DL Phosphorus Level 0.8 MG/DL Magnesium Level 1.1 MG/DL Total Bilirubin 0.5 MG/DL Aspartate Amino Transf 31 U/L (AST/SGOT) Alanine Aminotransferase 48 U/L (ALT/SGPT) Alkaline Phosphatase 434 U/L Total Protein 5.7 GM/DL Albumin 1.4 GM/DL Triglycerides Level 141 MG/DL Culture Results Microbiology Date/Time Procedure Status Source Growth 04/09/16 10:55 Aerobic Blood Culture - Preliminary Resulted Blood Peripheral NO GROWTH IN 1 DAY 04/09/16 10:55 Anaerobic Blood Culture - Preliminary Resulted Blood Peripheral NO GROWTH IN 1 DAY Administered Medications Medications (Trade) Dose Ordered Sig/Sara Route PRN Reason Start Time Stop Time Status Last Admin Dose Admin Ondansetron HCl (Zofran Inj) 4 mg Q6H PRN IV PUSH NAUSEA 04/02/16 01:45 04/02/16 02:38 IV Flush (NS Flush) 2 ml UNSCH PRN IVF FLUSH AFTER USING IV ACCESS 04/02/16 08:15 04/04/16 02:03 IV Flush (NS Flush) 2 ml BID IVF 04/02/16 09:00 04/09/16 20:58 Enoxaparin Sodium (Lovenox Inj) 30 mg Q24H SQ 04/04/16 15:30 04/08/16 14:24 Water (Free Water) VOLUME: 200 ML Q6HR G-TUBE 04/04/16 08:45 04/10/16 10:12 Acetaminophen 650 mg 650 mg Q4H PRN PO FEVER OVER 101.0 04/07/16 01:45 04/07/16 21:31 Potassium Chloride/Dextrose/ Sod Cl 1,000 ml @ 42 mls/hr [id number] IV 04/07/16 07:45 04/10/16 07:12 Piperacillin Sod/ Tazobactam Sod (Zosyn 3.375 Gm Premix) 50 ml @ 100 mls/hr Q6H IV 04/07/16 11:00 2/6/17 10:12 Potassium Chloride (KCl 40 Meq/30 ml Liq) 40 meq Q12HR NG 04/08/16 12:00 04/10/16 08:07 Acetaminophen/ Hydrocodone Bitart (Hycet 325-7.5 Mg Liq) 15 ml Q3HR PRN PO pain1-9 04/08/16 14:45 04/10/16 08:16 Objective Remarks GENERAL: Chronically ill appearing male, lying in bed, appears comfortable. Brother at bedside. SKIN: right facial tumor with bandages in place. HEAD: Normocephalic. EYES: No injection or drainage. NECK: large tumor with bandages in place. CARDIOVASCULAR: Regular rate and rhythm RESPIRATORY: Breath sounds equal bilaterally. No accessory muscle use. GASTROINTESTINAL: Abdomen soft, non-tender, tolerating tube feeds. EXTREMITIES: No cyanosis. extremities warm and well perfused. NEUROLOGICAL: awake and alert normal speech. moving all extremities. 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 Planning for radiation therapy underway and will likely start sometime this week. Plan 1. very happy that the patient seems to be responding to the Zosyn. Continue and monitor vitals. await specificities from . 2. continue PO hydrocodone for pain. will encourage the nurses to offer this. 3. Multiple questions answered at bedside via translation service. I called and spoke with radiation nurse, the patient was seen on 04/05 and radiation takes about a week to plan, so they are going to start radiation sometime later this week and exact date has not been made yet. We (medical oncology) plan to start weekly carbo/taxol shortly after the radiation is started and assuming infection is under control. This can be given via peripheral IV and as mentioned before will likely only add a small benefit (if any). This was discussed with the patient and brother and we will discuss again prior to start chemotherapy. Sirisha Cotton Apr 10, 2016 12:48
[2016-04-10] MEDS: ENOXAPARIN SODIUM 30 MG/0.3 ML SYRINGE SQ SCH (17:24)
[2016-04-10] MEDS: MAGNESIUM OXIDE 400 MG TAB PEG SCH ×2 (17:25→21:18)
[2016-04-10] MEDS: MORPHINE SULFATE 4 MG/ML INJ IV SCH (17:29)
[2016-04-10 23:50] LABS: BLOOD, URINE NEG (NEG); COMMENT (UR) CULT NOT INDICATED; CULTURE IF INDICATED CULT NOT INDICATED; GLUCOSE,URINE 70 mg/dL (NEG); KETONE, URINE NEG (NEG); NITRITE,URINE NEG (NEG); URINE COLOR YELLOW (YELLW/STRAW)
[2016-04-11] VITALS (7 sets, daily range): BP systolic 87–98; BP diastolic 51–62; PULSE 80–106; RESP 16–18; TEMP 97.7–99; O2SAT 97–98
[2016-04-11] MEDS: PIPERACIL-TAZO 3.375 GM PREMIX 50 ML IV SCH ×5 (04:44→23:22)
[2016-04-11] MEDS: FREE WATER G-TUBE SCH ×4 (04:46→23:40)
[2016-04-11 07:22] LABS: AUTOMATED NEUTROPHIL # 16.3 TH/MM3 (1.8-7.7); BASOPHIL # 0.1 TH/MM3 (0-0.2); BASOPHIL % 0.4 % (0.0-2.0); EOSINOPHIL # 0.3 TH/MM3 (0-0.4); EOSINOPHIL % 1.7 % (0.0-4.0); HEMATOCRIT 25.9 % (39.0-51.0); HEMO FLAGS DIFF FINAL; LYMPH % 6.1 % (9.0-44.0); LYMPHOCYTE # 1.2 TH/MM3 (1.0-4.8); MEAN CELL VOLUME 85.4 FL (80.0-100.0); MEAN CORPUSCULAR HEMOGLOBIN 28.9 PG (27.0-34.0); MEAN CORPUSCULAR HGB CONC 33.8 % (32.0-36.0); MONO % 6.2 % (0.0-8.0); NEUT % 85.6 % (16.0-70.0); PLATELET COUNT 291 TH/MM3 (150-450); RED BLOOD COUNT 3.04 MIL/MM3 (4.50-5.90); RED CELL DISTRIBUTION WIDTH 15.3 % (11.6-17.2)
[2016-04-11 08:06] LABS: BICARBONATE 22.6 MEQ/L (21.0-32.0); MAGNESIUM 1.1 MG/DL (1.5-2.5); POTASSIUM 3.3 MEQ/L (3.5-5.1)
[2016-04-11 08:35] LABS: CALCIUM-PROTEIN CORRECTED 6.6 MG/DL (8.5-10.1)
--- NOTE | 2016-04-11 08:43 | HHI.PR ---
Subjective Subjective Notes no issues, tolerating TF, bowels working, minimal pain (2) Objective Vitals/I&O Vital Signs Date Time Temp Pulse Resp B/P Pulse Ox O2 Delivery O2 Flow Rate FiO2 04/11/16 04:00 97.7 96 17 94/54 97 Labs Laboratory Tests Test 04/10/16 04/11/16 23:00 07:00 Urine Color YELLOW Urine Turbidity CLEAR Urine pH 8.0 Urine Specific [place] 1.011 Urine Protein TRACE Urine Glucose (UA) 70 Urine Ketones NEG Urine Occult Blood NEG Urine Nitrite NEG Urine Bilirubin NEG Urine Urobilinogen LESS THAN 2.0 Urine Leukocyte Esterase NEG Urine RBC 1 Urine WBC 2 Microscopic Urinalysis Comment CULT NOT INDICATED White Blood Count 19.0 Red Blood Count 3.04 Hemoglobin 8.8 Hematocrit 25.9 Mean Corpuscular Volume 85.4 Mean Corpuscular Hemoglobin 28.9 Mean Corpuscular Hemoglobin 33.8 Concent Red Cell Distribution Width 15.3 Platelet Count 291 Mean Platelet Volume 5.9 Neutrophils (%) (Auto) 85.6 Lymphocytes (%) (Auto) 6.1 Monocytes (%) (Auto) 6.2 Eosinophils (%) (Auto) 1.7 Basophils (%) (Auto) 0.4 Neutrophils # (Auto) 16.3 Lymphocytes # (Auto) 1.2 Monocytes # (Auto) 1.2 Eosinophils # (Auto) 0.3 Basophils # (Auto) 0.1 CBC Comment DIFF FINAL Differential Comment Sodium Level 137 Potassium Level 3.3 Chloride Level 105 Carbon Dioxide Level 22.6 Anion Gap 9 Blood Urea Nitrogen 9 Creatinine 0.64 Estimat Glomerular Filtration 142 Rate Random Glucose 103 Calcium Level 6.0 Protein Corrected Calcium 6.6 Magnesium Level 1.1 Total Protein 5.7 Albumin 1.4 Date/Time Procedure Status Source Growth 04/09/16 10:55 Aerobic Blood Culture - Preliminary Resulted Blood Peripheral NO GROWTH IN 1 DAY 04/09/16 10:55 Anaerobic Blood Culture - Preliminary Resulted Blood Peripheral NO GROWTH IN 1 DAY 04/06/16 17:33 Aerobic Blood Culture - Final Resulted Blood Peripheral Pseudomonas Stutzeri 04/06/16 17:33 Anaerobic Blood Culture - Preliminary Resulted Blood Peripheral NO GROWTH IN 4 DAYS Cardiovascular: Regular Lungs: Clear Abdomen: Non-distended Narrative Exam facial dressing in place, clean and dry. 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 - Fever may also be necrotic tumor - D/W Dr Lezama and patient's brother. We do not feel transfer to [facility], intubation, or pressors are indicated due to his terminal condition. Supportive care only. Palliative care at bedside. - Palliative radiation and/or surgery will depend on patient's clinical condition. Dr Beaulieu planning to start radiation Sunday. Dr. Lezama will add chemo as well. - labs stable Juan Oseguera MD Apr 11, 2016 08:43
--- NOTE | 2016-04-11 08:49 | HHI.PR ---
Subjective Remarks in no distress. pain is controlled. no fever. Objective Vitals Vital Signs Date Time Temp Pulse Resp B/P Pulse Ox O2 Delivery O2 Flow Rate FiO2 04/11/16 04:00 97.7 96 17 94/54 97 04/11/16 00:00 97.8 104 17 94/51 98 04/10/16 20:03 107 04/10/16 20:00 98.1 108 18 92/58 99 04/10/16 15:50 96.5 106 20 96/58 100 04/10/16 11:30 97.8 99 20 81/45 100 I/O 04/10/16 04/10/16 04/10/16 04/11/16 04/11/16 04/11/16 07:00 15:00 23:00 07:00 15:00 23:00 Intake Total 1040 ml 240 ml 1875 ml Output Total 150 ml Balance 1040 ml 240 ml 1725 ml Intake Oral 240 ml IV Total 325 ml 495 ml Tube Feeding 315 ml 980 ml Other 400 ml 400 ml Output Urine Total 150 ml # Voids 3 # Bowel Movements 2 Result Diagram: 04/11/16 0700 04/11/16 0700 Imaging Last Impressions Upper Extremity Ultrasound 04/08/16 0000 Signed Impressions: Service Date/Time: Friday, April 08, 2016 13:04 - CONCLUSION: No thrombus. Deshawn Michele MD Chest X-Ray 04/03/16 0000 Signed Impressions: Service Date/Time: Sunday, April 03, 2016 16:42 - CONCLUSION: Left subclavian venous catheter positioned in the superior vena cava with no pneumothorax Yaakov Montaño MD Neck CT 04/02/16 0000 Signed Impressions: Service Date/Time: Saturday, April 02, 2016 11:54 - CONCLUSION: Very large heterogeneous soft tissue mass along the right side of the face with gross destruction involving most of the right mandible. The mass contains amorphous calcifications and appears to involve the right sternocleidomastoid muscle. The mass appears to extend into the oral cavity with diffuse enlargement of the right tonsillar pillar. Neoplastic disease in the primary consideration. Niall Corrales MD Multiplanar Reconstruction 04/02/16 0000 Signed Impressions: Service Date/Time: Saturday, April 02, 2016 11:54 - CONCLUSION: 3-D reconstructive images demonstrating destruction involving most the right side of the mandible. Niall Corrales MD Head CT 04/02/16 0000 Signed Impressions: Service Date/Time: Saturday, April 02, 2016 11:54 - CONCLUSION: 1. Unremarkable CT scan of the brain 2. Large abnormal soft tissue mass with calcifications along the right side of the face. Niall Corrales MD Objective Remarks GENERAL: in no acute distress HEENT; swollen right face- covered with clean dressing. CARDIOVASCULAR: Regular rate and regular rhythm without murmurs, gallops, or rubs. RESPIRATORY: Clear to auscultation. Breath sounds equal bilaterally. No wheezes , rales, or rhonchi. GASTROINTESTINAL: Abdomen soft, non-tender, nondistended. Normal, active bowel sounds MUSCULOSKELETAL: Extremities without clubbing, cyanosis, or edema. NEURO: Alert & Oriented x4 to person, place, time, situation. Moves all ext x4 Procedures central line placement PEG placement bone biopsy teeth extraction Medications and IVs Current Medications Sodium Chloride (NS 1000 ml Inj) 1,000 ml @ 75 mls/hr [id number] IV Last administered on 04/02/16 02:38; Start 04/02/16 at 01:45; Stop 04/02/16 at 08:25 ; Status DC Morphine Sulfate (Morphine Inj) 2 mg Q2H PRN IV BREAKTHROUGH PAIN Last administered on 04/02/16 02:38; Start 04/02/16 at 01:45; Stop 04/08/16 at 09:45 ; Status DC Ondansetron HCl 4 mg 4 mg Q6H PRN IV PUSH NAUSEA Last administered on 02:38; Start 04/02/16 at 01:45 Sodium Chloride 500 ml @ 0 mls/hr BOLUS ONCE IV Last administered on 04:00; Start 04/02/16 at 04:00; Stop 04/02/16 at 04:01; Status DC Potassium Chloride/Dextrose/ Sod Cl (D5-NS + KCl 20 Meq Inj) 1,000 ml @ 125 mls /hr Q8H IV Last administered on 04/03/16 11:51; Start 04/02/16 at 09:00; Stop 04/04/16 at 08:51; Status DC IV Flush (NS Flush) 2 ml UNSCH PRN IVF FLUSH AFTER USING IV ACCESS Last administered on 04/04/16 02:03; Start 04/02/16 at 08:15 IV Flush (NS Flush) 2 ml BID IVF Last administered on 04/10/16 21:18; Start at 09:00 Acetaminophen (Tylenol) 650 mg Q4H PRN PO PAIN SCALE 1 TO 10; Start 04/02/16 at 09:00; Stop 04/02/16 at 09:00; Status DC Ibuprofen (Motrin) 600 mg Q4H PRN PO PAIN SCALE 1 TO 5; Start 04/02/16 at 08:15 ; Stop 04/02/16 at 08:49; Status DC Hydromorphone HCl (Dilaudid Pf Inj) 0.5 mg Q2H PRN IV PAIN SCALE 6 TO 10; Start 04/02/16 at 08:15; Stop 04/02/16 at 08:49; Status DC Diphenhydramine HCl (Benadryl) 25 mg Q6H PRN PO ITCHING; Start 04/02/16 at 09: 00 Miscellaneous Information (Post-op Orders (for Pharmacy)) STAT ONCE XX ; Start 04/02/16 at 08:15; Stop 04/03/16 at 06:06; Status DC Miscellaneous Information 1 ONCE ONCE XX ; Start 04/02/16 at 08:15; Stop at 06:06; Status DC Enoxaparin Sodium (Lovenox Inj) 30 mg Q24H SQ Last administered on 04/10/16 17: 24; Start 04/04/16 at 15:30 Naloxone HCl (Narcan Inj) 0.4 mg UNSCH PRN IV RESPIRATORY RATE LESS THAN 10; Start 04/02/16 at 08:15; Stop 04/02/16 at 08:49; Status DC Diphenhydramine HCl (Benadryl Inj) 25 mg Q6H PRN IV ITCHING; Start 04/02/16 at 09:00; Stop 04/02/16 at 09:00; Status DC DRUM DRIER OPERATOR Dosage Infused (Pha) 1 Q8HR .XX ; Start 04/02/16 at 09:00; Stop 04/02/16 at 09:00; Status DC Acetaminophen/ Hydrocodone Bitart (Hycet 325-7.5 Mg Liq) 15 ml Q4H PRN PO Last administered on 04/08/16 10:31; Start 04/02/16 at 09:00; Stop 04/08/16 at 14 :40; Status DC Ibuprofen (Motrin Liq) 600 mg Q4H PRN PO PAIN SCALE 1-5; Start 04/02/16 at 09: 00; Stop 04/02/16 at 09:02; Status DC Ibuprofen 600 mg 600 mg Q4H PRN PO PAIN SCALE 1-5; Start 04/02/16 at 09:02 Sodium Chloride (NS 500 ml Inj) 500 ml @ 30 mls/hr [id number] IV ; Start 04/03/16 at 03:15; Stop 04/04/16 at 03:14; Status DC Bupivacaine HCl/ Epinephrine Bitart (Sensorcaine-Epinephrine Pf 0.25% Inj) 20 ml STK-MED ONCE .ROUTE ; Start 04/03/16 at 13:46; Stop 04/03/16 at 13:47; Status DC Chlorhexidine Gluconate (Peridex 0.12% Liq) 60 ml STK-MED ONCE .ROUTE ; Start at 13:46; Stop 04/03/16 at 13:47; Status DC Heparin Sodium (Porcine) (Heparin Inj) 10,000 units STK-MED ONCE .ROUTE ; Start 04/03/16 at 13:46; Stop 04/03/16 at 13:47; Status DC Heparin Sodium (Porcine) (Heparin Inj) 10,000 units STK-MED ONCE .ROUTE ; Start 04/03/16 at 13:46; Stop 04/03/16 at 13:47; Status DC Cefazolin Sodium (Ancef Inj) 1,000 mg STK-MED ONCE IV Last administered on 04/03 14:43; Start 04/03/16 at 14:43; Stop 04/03/16 at 15:03; Status DC Lidocaine/ Epinephrine (Xylocaine-Epi 1%-1:100,000 Inj) 50 ml STK-MED ONCE .ROUTE ; Start 04/03/16 at 15:35; Stop 04/03/16 at 15:36; Status DC Lidocaine/ Epinephrine (Xylocaine-Epi 2%-1:100,000 Inj) 30 ml STK-MED ONCE .ROUTE Last administered on 04/03/16 16:01; Start 04/03/16 at 15:35; Stop at 15:36; Status DC Microfibriller Collagen Hemostat (Avitene Powder Pack) 1 gm STK-MED ONCE .ROUTE ; Start 04/03/16 at 15:41; Stop 04/03/16 at 15:42; Status DC Fentanyl Citrate 250 mcg 250 mcg STK-MED ONCE .ROUTE ; Start 04/03/16 at 16:34; Stop 04/03/16 at 16:35; Status DC Sodium Chloride 11 meq/Sodium Acetate 59 meq/ Potassium Chloride 40 meq/ Magnesium Chloride 10 meq/ Multivitamins 10 ml/Folic Acid 1 mg/Amino Acids/ Dextrose 2,067.5261 ml @ 83 mls/hr Q24H IV-CENTRAL Last administered on 22:27; Start 04/03/16 at 20:00; Stop 04/08/16 at 09:30; Status DC Fat Emulsion Intravenous (Liposyn Iii 20% Inj) 250 ml @ 10 mls/hr Q24H IV- CENTRAL Last administered on 04/06/16 22:26; Start 04/03/16 at 20:00; Stop 04/08 at 09:31; Status DC Morphine Sulfate (*morphine INJ PERIprocedure ONLY) 8 mg STK-MED ONCE .ROUTE Last administered on 04/03/16 17:22; Start 04/03/16 at 17:22; Stop 04/03/16 at 17:23; Status DC Miscellaneous Information ALL NURSING DEPARTME... UNSCH PRN XX SEE LABEL COMMENTS; Start 04/03/16 at 16:28; Stop 04/04/16 at 16:27; Status DC Potassium Chloride 100 ml @ 50 mls/hr Q2H IV Last administered on 04/04/16 01 :52; Start 04/03/16 at 21:45; Stop 04/04/16 at 01:44; Status DC Magnesium Sulfate/ Dextrose (Magnesium Sulfate 1 Gm Premix) 100 ml @ 100 mls/ hr Q1H IV Last administered on 04/04/16 00:16; Start 04/03/16 at 21:45; Stop 04/03/16 at 23:44; Status DC Water (Free Water) VOLUME: 200 ML Q6HR G-TUBE Last administered on 04/11/16 04: 46; Start 04/04/16 at 08:45 Potassium Chloride (KCl 40 Meq/30 ml Liq) 40 meq ONCE ONCE PEG Last administered on 04/04/16 10:45; Start 04/04/16 at 10:45; Stop 04/04/16 at 10:50 ; Status DC Propofol (Diprivan 200 Mg/20 ml Inj) 200 mg STK-MED ONCE IV ; Start 04/03/16 at 10:46; Stop 04/04/16 at 10:46; Status DC Phenylephrine HCl (Neosynephrine/ NS 1000 Mcg/10ml Syr) 1,000 mcg STK-MED ONCE IV ; Start 04/03/16 at 10:46; Stop 04/04/16 at 10:46; Status DC Ondansetron HCl 4 mg 4 mg STK-MED ONCE IV PUSH ; Start 04/03/16 at 10:46; Stop 04/04/16 at 10:46; Status DC Lactated Ringer's 1,000 ml @ As Directed STK-MED ONCE IV ; Start 04/03/16 at 10 :46; Stop 04/04/16 at 10:46; Status DC Pamidronate Disodium/Sodium Chloride ([place] Inj/NS 1000 ml Inj) 1,000 ml @ 42 mls/hr ONCE ONCE IV Last administered on 04/04/16 23:37; Start 04/04/16 at 22 :00; Stop 04/05/16 at 21:48; Status DC Potassium Chloride 40 meq 40 meq ONCE ONCE PEG Last administered on 04/05/16 15:12; Start 04/05/16 at 12:00; Stop 04/05/16 at 12:01; Status DC Levofloxacin/ Dextrose 100 ml @ 100 mls/hr Q24H IV Last administered on 22:27; Start 04/06/16 at 18:00; Stop 04/07/16 at 09:06; Status DC Sodium Chloride (NS 1000 ml Inj) 1,000 ml @ 0 mls/hr BOLUS ONCE IV Last administered on 04/07/16 01:00; Start 04/07/16 at 01:00; Stop 04/07/16 at 01:01; Status DC Acetaminophen (Tylenol) 650 mg Q4H PRN PO FEVER OVER 101.0 Last administered on 04/07/16 21:31; Start 04/07/16 at 01:45 Metoprolol Tartrate 25 mg 25 mg ONCE ONCE PO Last administered on 04/07/16 03: 16; Start 04/07/16 at 03:15; Stop 04/07/16 at 03:16; Status DC Potassium Chloride/Dextrose/ Sod Cl (D5-NS + KCl 20 Meq Inj) 1,000 ml @ 42 mls/ hr [id number] IV Last administered on 04/10/16 07:12; Start 04/07/16 at 07:45 Potassium Chloride 40 meq 40 meq ONCE ONCE PO Last administered on 04/07/16 08 :15; Start 04/07/16 at 08:15; Stop 04/07/16 at 08:18; Status DC Cefepime HCl 2000 mg/Sodium Chloride 100 ml @ 200 mls/hr Q12H IV Last administered on 04/07/16 09:00; Start 04/07/16 at 09:00; Stop 04/07/16 at 09:07; Status DC Piperacillin Sod/ Tazobactam Sod 50 ml @ 100 mls/hr Q6H IV Last administered on 04/11/16 04:44; Start 04/07/16 at 11:00 Magnesium Sulfate/ Dextrose (Magnesium Sulfate 1 Gm Premix) 100 ml @ 100 mls/ hr ONCE ONCE IV Last administered on 04/07/16 15:30; Start 04/07/16 at 13:15; Stop 04/07/16 at 14:14; Status DC Potassium Chloride (KCl 40 Meq/30 ml Liq) 40 meq ONCE ONCE PEG Last administered on 04/07/16 15:30; Start 04/07/16 at 13:15; Stop 04/07/16 at 13:16; Status DC Lidocaine HCl (Xylocaine 1% Inj (50 ml)) 50 ml STK-MED ONCE .ROUTE ; Start at 15:46; Stop 04/07/16 at 15:47; Status DC Metoprolol Tartrate (Lopressor) 25 mg ONCE ONCE PO ; Start 04/08/16 at 00:15; Stop 04/08/16 at 00:16; Status DC Morphine Sulfate (Morphine Inj) 2 mg Q4HR IV ; Start 04/08/16 at 12:00; Status Hold Morphine Sulfate 2 mg 2 mg Q2HR PRN IV PUSH PAIN SCALE 9 TO 10; Start 04/08/16 at 09:00 Potassium Chloride (KCl 20 Meq Premix Inj) 100 ml @ 50 mls/hr Q2H IV Last administered on 04/08/16 18:59; Start 04/08/16 at 12:00; Stop 04/08/16 at 15:59; Status DC Potassium Chloride (KCl 40 Meq/30 ml Liq) 40 meq Q12HR NG Last administered on 04/10/16 21:18; Start 04/08/16 at 12:00 Acetaminophen/ Hydrocodone Bitart 15 ml 15 ml Q3HR PRN PO pain1-9 Last administered on 04/10/16 17:39; Start 04/08/16 at 14:45 Potassium Chloride (KCl 20 Meq Premix Inj) 100 ml @ As Directed STK-MED ONCE .ROUTE ; Start 04/08/16 at 18:57; Stop 04/08/16 at 18:58; Status DC Magnesium Oxide (Mag-Ox) 400 mg Q12HR PEG Last administered on 04/10/16 21:18; Start 04/10/16 at 14:45; Stop 04/12/16 at 21:00 A/P Assessment and Plan 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 The mass contains amorphous calcifications and appears to involve the right sternocleidomastoid muscle. The mass appears to extend into the oral cavity with diffuse enlargement of the right tonsillar pillar. 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 continue with pain control. general and facial surgery following. -sepsis with possible right facial wound and central line as the source- now fever has resolved one bottle of blood cultures with pseudomonas stutzeri - continue IV Zosyn- central line discontinued- repeated blood cultures 2/5 negative so far- -acute kidney injury/ hyponatremia due to dehydration-- improved - will monitor -hypercalcemia- received a dose of aradia- corrected calcium today 8.08. -anemia- s/p PRBC transfusion- will monitor H/H- -hypokalemia; will replace. -severe malnutrition- s/p PEG placement-started on tube feeding - key punch operator consulted. -DVT prophylaxis with lovenox palliative care consult appreciated. Meredith Acosta MD Apr 11, 2016 08:49
[2016-04-11] MEDS: SODIUM CHLORIDE 0.9% FLUSH 5 ML FLUSH IVF SCH ×2 (09:00→21:03)
[2016-04-11] MEDS ORDERED: POTASSIUM CL 40 MEQ/30 ML LIQ UDC PEG ONE (09:00)
[2016-04-11] MEDS ORDERED: MAGNESIUM SULFATE 1 GM PREMIX 100 ML IV ONE (09:00)
[2016-04-11] MEDS: MAGNESIUM OXIDE 400 MG TAB PEG SCH ×2 (09:00→21:03)
[2016-04-11] MEDS: POTASSIUM CL 40 MEQ/30 ML LIQ UDC NG SCH ×2 (10:03→21:03)
[2016-04-11] MEDS: D5-NS + KCL 20 MEQ INJ 1,000 ML IV SCH ×2 (10:04→23:32)
--- NOTE | 2016-04-11 11:39 | PD.ONC.PN ---
Subjective Subjective Remarks Afebrile overnight. Patient resting comfortably. Brother at bedside. Patient is requesting to eat some jello. Pain under control with pain meds. Translation service used. Objective Data Date Time Temp Pulse Resp B/P Pulse Ox O2 Delivery O2 Flow Rate FiO2 04/11/16 08:00 99.0 106 16 94/62 98 04/11/16 04:00 97.7 96 17 94/54 97 04/11/16 00:00 97.8 104 17 94/51 98 04/10/16 20:03 107 04/10/16 20:00 98.1 108 18 92/58 99 04/10/16 15:50 96.5 106 20 96/58 100 Result Diagram: 04/11/16 0700 04/11/16 0700 Laboratory Results Laboratory Tests Test 04/10/16 04/11/16 23:00 07:00 Urine Color YELLOW Urine Turbidity CLEAR Urine pH 8.0 Urine Specific [place] 1.011 Urine Protein TRACE mg/dL Urine Glucose (UA) 70 mg/dL Urine Ketones NEG mg/dL Urine Occult Blood NEG Urine Nitrite NEG Urine Bilirubin NEG Urine Urobilinogen LESS THAN 2.0 MG/DL Urine Leukocyte Esterase NEG Urine RBC 1 /hpf Urine WBC 2 /hpf Microscopic Urinalysis Comment CULT NOT INDICATED White Blood Count 19.0 TH/MM3 Red Blood Count 3.04 MIL/MM3 Hemoglobin 8.8 GM/DL Hematocrit 25.9 % Mean Corpuscular Volume 85.4 FL Mean Corpuscular Hemoglobin 28.9 PG Mean Corpuscular Hemoglobin 33.8 % Concent Red Cell Distribution Width 15.3 % Platelet Count 291 TH/MM3 Mean Platelet Volume 5.9 FL Neutrophils (%) (Auto) 85.6 % Lymphocytes (%) (Auto) 6.1 % Monocytes (%) (Auto) 6.2 % Eosinophils (%) (Auto) 1.7 % Basophils (%) (Auto) 0.4 % Neutrophils # (Auto) 16.3 TH/MM3 Lymphocytes # (Auto) 1.2 TH/MM3 Monocytes # (Auto) 1.2 TH/MM3 Eosinophils # (Auto) 0.3 TH/MM3 Basophils # (Auto) 0.1 TH/MM3 CBC Comment DIFF FINAL Differential Comment Sodium Level 137 MEQ/L Potassium Level 3.3 MEQ/L Chloride Level 105 MEQ/L Carbon Dioxide Level 22.6 MEQ/L Anion Gap 9 MEQ/L Blood Urea Nitrogen 9 MG/DL Creatinine 0.64 MG/DL Estimat Glomerular Filtration 142 ML/MIN Rate Random Glucose 103 MG/DL Calcium Level 6.0 MG/DL Protein Corrected Calcium 6.6 MG/DL Magnesium Level 1.1 MG/DL Total Protein 5.7 GM/DL Albumin 1.4 GM/DL Culture Results Microbiology Date/Time Procedure Status Source Growth 04/09/16 10:55 Aerobic Blood Culture - Preliminary Resulted Blood Peripheral NO GROWTH IN 2 DAYS 04/09/16 10:55 Anaerobic Blood Culture - Preliminary Resulted Blood Peripheral NO GROWTH IN 2 DAYS Administered Medications Medications (Trade) Dose Ordered Sig/Sara Route PRN Reason Start Time Stop Time Status Last Admin Dose Admin Ondansetron HCl (Zofran Inj) 4 mg Q6H PRN IV PUSH NAUSEA 04/02/16 01:45 04/02/16 02:38 IV Flush (NS Flush) 2 ml UNSCH PRN IVF FLUSH AFTER USING IV ACCESS 04/02/16 08:15 04/04/16 02:03 IV Flush (NS Flush) 2 ml BID IVF 04/02/16 09:00 04/10/16 21:18 Enoxaparin Sodium (Lovenox Inj) 30 mg Q24H SQ 04/04/16 15:30 04/10/16 17:24 Water (Free Water) VOLUME: 200 ML Q6HR G-TUBE 04/04/16 08:45 04/11/16 04:46 Acetaminophen 650 mg 650 mg Q4H PRN PO FEVER OVER 101.0 04/07/16 01:45 04/07/16 21:31 Potassium Chloride/Dextrose/ Sod Cl 1,000 ml @ 42 mls/hr [id number] IV 04/07/16 07:45 04/11/16 10:04 Piperacillin Sod/ Tazobactam Sod (Zosyn 3.375 Gm Premix) 50 ml @ 100 mls/hr Q6H IV 04/07/16 11:00 04/11/16 04:44 Potassium Chloride (KCl 40 Meq/30 ml Liq) 40 meq Q12HR NG 04/08/16 12:00 04/11/16 10:03 Acetaminophen/ Hydrocodone Bitart (Hycet 325-7.5 Mg Liq) 15 ml Q3HR PRN PO pain1-9 04/08/16 14:45 04/10/16 17:39 Magnesium Oxide (Mag-Ox) 400 mg Q12HR PEG 04/10/16 14:45 04/12/16 21:00 04/10/16 21:18 Objective Remarks GENERAL: Young man with severe facial deformity due to large tumor on right jaw/ neck. SKIN: warm and dry. HEAD: Normocephalic. EYES: No injection or drainage. NECK: large tumor with bandages in place. CARDIOVASCULAR: Regular rate and rhythm RESPIRATORY: Breath sounds equal bilaterally. No accessory muscle use. GASTROINTESTINAL: Abdomen soft, non-tender. G-tube in place, receiving tube feeds. EXTREMITIES: No cyanosis. extremities warm and well perfused. NEUROLOGICAL: AO x 3. normal speech. moving all extremities. 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 Plan 1. radiation to start sometime this week 2. will obtain CT C/A/P for staging--IV no PO contrast due to aspiration risk 3. the patient wants to eat jello--I explained to the patient and his brother via translation service he is an aspiration risk--he could choke on food and , or develop a lung infection. However, the patient is dying. I want him to have whatever he wants and I communicated that to the patient and brother, as well. I am sure if I order a swallow eval, he would fail. I am leaving him on a regular diet. Patient and his brother are aware of the risks 4. continue PO hydrocodone for pain 5. continue Zosyn Attending Statement had a lengthy conversation with brother/patient using the curb attendant through the computer. This worked enormously well. Patient wants CPR at present although this may changed. It is hard to imagine a successful intubation and ever if this occurred there would be little hope of a good outcome or even leaving the hospital. This has been made clear to the patient and brother. I met with Dr. Beaulieu this morning and if the patient is stable he will probably go ahead with radiation in next 1-2 day and if stable after that could add weekly carbo and taxol although impact my not be meaningful. At present pain is controlled. Will proceed with radiographic studies of chest abd and pelvis with iv but not oral contrast. Sirisha Cotton Apr 11, 2016 11:39 Yovany Lezama MD Apr 11, 2016 18:53
[2016-04-11] MEDS ORDERED: IOHEXOL 350 MG/ML 10 ML VIAL (for RAD DIAG) IV ONE (14:39)
--- NOTE | 2016-04-11 15:06 | RADRPT ---
EXAM DATE/TIME: 04/11/2016 14:09 [facility] COMPARISON: No previous studies available for comparison. INDICATIONS : Oropharyngeal cancer, evaluate for metastatic disease IV CONTRAST: 95 cc Omnipaque 350 (iohexol) IV ; Cumulative dose for multiple exams. ORAL CONTRAST: No oral contrast ingested. RADIATION DOSE: 5.10 CTDIvol (mGy) ; Combined studies - Thorax/Abdomen/Pelvis MEDICAL HISTORY : oropharyngeal cancer SURGICAL HISTORY : None. ENCOUNTER: Initial ACUITY: 1 day PAIN SCALE: 6/10 LOCATION: Abdomen TECHNIQUE: Volumetric scanning of the abdomen and pelvis was performed. Using automated exposure control and ad justment of the mA and/or kV according to patient size, radiation dose was kept as low as reasonably achievable to obtain optimal diagnostic quality images. FINDINGS: LOWER LUNGS: The visualized lower lungs are clear. LIVER: The liver is at the upper limits of normal in size with small cystic structure in the anterior right lobe measuring 5 mm. There is a 1.4 low attenuation lesion in the left lobe which does not meet the c riteria for a simple cyst. SPLEEN: Normal size without lesion. PANCREAS: Within normal limits. KIDNEYS: Normal in size and shape. There is no mass, stone or hydronephrosis. ADRENAL GLANDS: Within normal limits. VASCULAR: There is no aortic aneurysm. BOWEL/MESENTERY: A gastrostomy tube is present in the stomach. The stomach, small bowel, and colon demonstrate no acut e abnormality. There is no free intraperitoneal air or fluid. ABDOMINAL WALL: Within normal limits. RETROPERITONEUM: There is no lymphadenopathy. BLADDER: No wall thickening or mass. REPRODUCTIVE: Within normal limits. INGUINAL: There is no lymphadenopathy or hernia. MUSCULOSKELETAL: Within normal limits for patient age. CONCLUSION: 1. 1.4 cm low-attenuation lesion left lobe of the liver of concern for a metastasis. There is a small er more cystic appearing structure in the right lobe. 2. The remainder of the study is unremarkable except for a PEG tube in the stomach. Holland Villegas MD on April 11, 2016 at 14:54 Board Certified Radiologist. This report was verified electronically.
--- NOTE | 2016-04-11 15:42 | RADRPT ---
EXAM DATE/TIME: 04/11/2016 14:09 [place] COMPARISON: CT SOFT TISSUE NECK W/O CONTRAST, April 02, 2016, 11:54. INDICATIONS : Oropharyngeal cancer evaluate for metastatic disease. IV CONTRAST: 95 cc Omnipaque 350 (iohexol) IV ; Cumulative dose for multiple exams. RADIATION DOSE: 5.10 CTDIvol (mGy) ; Combined studies - Thorax/Abdomen/Pelvis MEDICAL HISTORY : oropharyngeal cancer SURGICAL HISTORY : None. ENCOUNTER: Initial ACUITY: 1 day PAIN SCALE: 6/10 LOCATION: chest TECHNIQUE: Volumetric scanning of the chest was performed. Using automated exposure control and adjustment of t he mA and/or kV according to patient size, radiation dose was kept as low as reasonably achievable to obtain optimal diagnostic quality images. FINDINGS: LUNGS: There is no consolidation or pneumothorax. There is a small noncalcified 5 mm pulmonary nodule in the right middle lobe on axial image #29. There is a second 5 mm nodule in the left lower lobe on image #26. There is a third tiny nodule in the left lung base on image #20. This measures approximately 2-3 mm in size. There is a fourth tiny nodule along the left fissure as well. There is an 8mm nodule in the left lower lobe seen best on coronal image #51. There is apparent atelectasis in the dependent po rtions of both lung bases. PLEURA: There is no pleural thickening or pleural effusion. MEDIASTINUM: The heart and great vessels demonstrate no acute abnormality. There is no mediastinal or hilar lymph adenopathy. AXILLAE: Within normal limits. No lymphadenopathy. SKELETAL: Within normal limits for patient age. MISCELLANEOUS: The visualized upper abdominal organs again demonstrate a low attenuation lesion left lobe of the robert er seen on abdomen CT. Please see abdomen CT for further details. There is partial visualization of t he large mass in the right side of the neck with destructive change involving the mandible again note d. This extends into the right supraclavicular region. CONCLUSION: 1. Multiple small scattered noncalcified pulmonary nodules which are nonspecific but are of concern f or early metastatic disease. 2. The known large tumor mass in the right side of the face and neck is partially visualized with ck tructive change involving the right side of the mandible. This extends into the right supraclavicular region. Please see soft tissue neck CT for further details. 3. Low attenuation lesion in the left lobe of the liver again noted. Holland Villegas MD on April 11, 2016 at 15:32 Board Certified Radiologist. This report was verified electronically.
--- NOTE | 2016-04-11 16:54 | HHI.HCPN ---
Reason for visit a. To assist with evaluation and management of symptoms including: jaw/ facial pain and debility. b. To assist medical decision maker(s) with: better understanding of current medical conditions; weighing benefits/burdens of medical treatment options; making medical treatment decisions. Subjective/Interval History Patient seen in his room. No r programmer used or needed as we both speak fluent [place]. Patient was sitting up in recliner chair in moderate distress, reporting right-sided facial and shoulder/arm pain. Currently at 6/ 10. Worse with movement, alleviated by pain medication. Denies abdominal pain, nausea or shortness of breath. Heading head to yes/no questions and using hands to communicate. Brother at bedside. Provided patient and brother with HCS documentation and "five wishes" booklet in [place]. Educated patient and brother on importance of completing HCS documentation as per [place] law, patient's would be the designated HCP and not his brother. Reviewed current treatment plan for management of symptoms, curative vs. palliative. Brother tells me that I am the only person telling him that pt's condition is terminal and irreversible/not curative. Brother not receptive of further conversation at this time. Discussed case with bedside RN. . Family/friend interactions See interval note. . Advance Directives Living Will: Never completed Health Care Surrogate: Never completed Durable Power of Cleaner Assistant: Never completed Advance Directive Specifics Health Care Surrogate(s): No living will or healthcare surrogate documents have been completed. As per [place] statute, healthcare proxy falls to patient's . However, is not available for medical decision-making as she resides in [facility]. Patient' s brother Vish Nunn serving as healthcare proxy. Patient in agreement of this, palliative care will assist patient with completion of healthcare surrogate documentation. . Documented care wishes: No living will completed. . Significant change in goals: Goals remain unchanged. Objective Vital Signs Date Time Temp Pulse Resp B/P Pulse Ox O2 Delivery O2 Flow Rate FiO2 04/11/16 16:00 98.1 103 16 98/55 97 04/11/16 12:00 98.7 80 16 87/57 97 04/11/16 08:00 99.0 106 16 94/62 98 04/11/16 04:00 97.7 96 17 94/54 97 04/11/16 00:00 97.8 104 17 94/51 98 2/6/17 20:03 107 04/10/16 20:00 98.1 108 18 92/58 99 Intake & Output 04/11/16 04/11/16 07:00 19:00 Intake Total 1875 ml 240 ml Output Total 150 ml Balance 1725 ml 240 ml Intake Oral 240 ml IV Total 495 ml Tube Feeding 980 ml Other 400 ml Output Urine Total 150 ml # Voids 2 Physical Exam CONSTITUTIONAL/GENERAL: This is an cachectic, ill looking male in no acute distress. TUBES/LINES/DRAINS: PIV's. SCD's. SKIN: No wounds seen anteriorly. Skin temperature appropriate. Not diaphoretic. HEAD: Atraumatic. Normocephalic. EYES: Pupils equal and round and reactive. No injection or drainage. ENT: Hearing grossly normal. Large mass to right side of mouth/jaw with kerlik dressing in place. Moderate amount of green/brown purulent drainage noted. Foul odor. CARDIOVASCULAR: Tachycardic. Regular rate and rhythm.Peripheral pulses symmetric. RESPIRATORY/CHEST: Symmetric, unlabored respirations. Clear to auscultation. Breath sounds equal bilaterally. No wheezes, rales, or rhonchi. GASTROINTESTINAL: Abdomen soft, non-tender, nondistended. PEG in place. No guarding. Bowel sounds present. GENITOURINARY: Without palpable bladder distension. MUSCULOSKELETAL: Extremities without clubbing, cyanosis, or edema. significant muscle wasting noted. NEUROLOGICAL: alert, following commands. Attempting to communicate by hand gestures and nodding head to yes/no questions. PSYCHIATRIC: calm. . Diagnostic Tests Laboratory Laboratory Tests Test 04/09/16 04/10/16 04/10/16 04/11/16 07:00 08:02 23:00 07:00 White Blood Count 17.4 TH/MM3 17.6 TH/MM3 19.0 TH/MM3 (4.0-11.0) (4.0-11.0) (4.0-11.0) Red Blood Count 3.19 MIL/MM3 3.21 MIL/MM3 3.04 MIL/MM3 (4.50-5.90) (4.50-5.90) (4.50-5.90) Hemoglobin 9.2 GM/DL 9.3 GM/DL 8.8 GM/DL (13.0-17.0) (13.0-17.0) (13.0-17.0) Hematocrit 26.9 % 27.5 % 25.9 % (39.0-51.0) (39.0-51.0) (39.0-51.0) Mean Corpuscular Volume 84.5 FL 85.7 FL 85.4 FL (80.0-100.0) (80.0-100.0) (80.0-100.0) Mean Corpuscular Hemoglobin 28.8 PG 29.0 PG 28.9 PG (27.0-34.0) (27.0-34.0) (27.0-34.0) Mean Corpuscular Hemoglobin 34.1 % 33.9 % 33.8 % Concent (32.0-36.0) (32.0-36.0) (32.0-36.0) Red Cell Distribution Width 15.3 % 15.7 % 15.3 % (11.6-17.2) (11.6-17.2) (11.6-17.2) Platelet Count 211 TH/MM3 251 TH/MM3 291 TH/MM3 (150-450) (150-450) (150-450) Mean Platelet Volume 6.2 FL 6.4 FL 5.9 FL (7.0-11.0) (7.0-11.0) (7.0-11.0) Neutrophils (%) (Auto) 85.3 % 84.9 % 85.6 % (16.0-70.0) (16.0-70.0) (16.0-70.0) Lymphocytes (%) (Auto) 6.2 % 6.6 % 6.1 % (9.0-44.0) (9.0-44.0) (9.0-44.0) Monocytes (%) (Auto) 6.4 % (0.0-8.0) 6.4 % (0.0-8.0) 6.2 % (0.0-8.0) Eosinophils (%) (Auto) 1.7 % (0.0-4.0) 1.6 % (0.0-4.0) 1.7 % (0.0-4.0) Basophils (%) (Auto) 0.4 % (0.0-2.0) 0.5 % (0.0-2.0) 0.4 % (0.0-2.0) Neutrophils # (Auto) 14.9 TH/MM3 15.0 TH/MM3 16.3 TH/MM3 (1.8-7.7) (1.8-7.7) (1.8-7.7) Lymphocytes # (Auto) 1.1 TH/MM3 1.2 TH/MM3 1.2 TH/MM3 (1.0-4.8) (1.0-4.8) (1.0-4.8) Monocytes # (Auto) 1.1 TH/MM3 1.1 TH/MM3 1.2 TH/MM3 (0-0.9) (0-0.9) (0-0.9) Eosinophils # (Auto) 0.3 TH/MM3 0.3 TH/MM3 0.3 TH/MM3 (0-0.4) (0-0.4) (0-0.4) Basophils # (Auto) 0.1 TH/MM3 0.1 TH/MM3 0.1 TH/MM3 (0-0.2) (0-0.2) (0-0.2) CBC Comment AUTO DIFF AUTO DIFF DIFF FINAL Differential Total Cells 100 100 Counted Neutrophils % (Manual) 82 % (16-70) 84 % (16-70) Band Neutrophils % 7 % (0-6) 1 % (0-6) Lymphocytes % 6 % (9-44) 2 % (9-44) Monocytes % 4 % (0-8) 6 % (0-8) Eosinophils % 1 % (0-4) 3 % (0-4) Neutrophils # (Manual) 15.5 TH/MM3 15.5 TH/MM3 (1.8-7.7) (1.8-7.7) Differential Comment FINAL DIFF FINAL DIFF MANUAL MANUAL Platelet Estimate NORMAL NORMAL (NORMAL) (NORMAL) Platelet Morphology Comment NORMAL NORMAL (NORMAL) (NORMAL) Sodium Level 138 MEQ/L 138 MEQ/L 137 MEQ/L (136-145) (136-145) (136-145) Potassium Level 3.6 MEQ/L 3.2 MEQ/L 3.3 MEQ/L (3.5-5.1) (3.5-5.1) (3.5-5.1) Chloride Level 104 MEQ/L 103 MEQ/L 105 MEQ/L (98-107) (98-107) (98-107) Carbon Dioxide Level 28.6 MEQ/L 26.0 MEQ/L 22.6 MEQ/L (21.0-32.0) (21.0-32.0) (21.0-32.0) Anion Gap 5 MEQ/L (5-15) 9 MEQ/L (5-15) 9 MEQ/L (5-15) Blood Urea Nitrogen 16 MG/DL (7-18) 12 MG/DL (7-18) 9 MG/DL (7-18) Creatinine 0.82 MG/DL 0.76 MG/DL 0.64 MG/DL (0.60-1.30) (0.60-1.30) (0.60-1.30) Estimat Glomerular Filtration 106 ML/MIN 116 ML/MIN 142 ML/MIN Rate (>89) (>89) (>89) Random Glucose 102 MG/DL 104 MG/DL 103 MG/DL (74-106) (74-106) (74-106) Calcium Level 7.2 MG/DL 6.2 MG/DL 6.0 MG/DL (8.5-10.1) (8.5-10.1) (8.5-10.1) Protein Corrected Calcium 8.1 MG/DL 6.8 MG/DL 6.6 MG/DL (8.5-10.1) (8.5-10.1) (8.5-10.1) Total Protein 5.4 GM/DL 5.7 GM/DL 5.7 GM/DL (6.4-8.2) (6.4-8.2) (6.4-8.2) Basophils % 1 % (0-2) Metamyelocytes 3 % (0-1) Red Cell Morphology Comment NORMAL (NORMAL) Prothrombin Time 13.3 SEC (9.8-11.6) Prothromb Time International 1.2 RATIO Ratio Phosphorus Level 0.8 MG/DL (2.5-4.9) Magnesium Level 1.1 MG/DL 1.1 MG/DL (1.5-2.5) (1.5-2.5) Total Bilirubin 0.5 MG/DL (0.2-1.0) Aspartate Amino Transf 31 U/L (15-37) (AST/SGOT) Alanine Aminotransferase 48 U/L (12-78) (ALT/SGPT) Alkaline Phosphatase 434 U/L (45-117) Albumin 1.4 GM/DL 1.4 GM/DL (3.4-5.0) (3.4-5.0) Triglycerides Level 141 MG/DL (42-150) Urine Color YELLOW (YELLW/STRAW) Urine Turbidity CLEAR (CLEAR) Urine pH 8.0 (5.0-8.5) Urine Specific [place] 1.011 (1.002-1.035) Urine Protein TRACE mg/dL (NEG-TRACE) Urine Glucose (UA) 70 mg/dL (NEG) Urine Ketones NEG mg/dL (NEG) Urine Occult Blood NEG (NEG) Urine Nitrite NEG (NEG) Urine Bilirubin NEG (NEG) Urine Urobilinogen LESS THAN 2.0 MG/DL (LESS THAN 2.0) Urine Leukocyte Esterase NEG (NEG) Urine RBC 1 /hpf (0-3) Urine WBC 2 /hpf (0-5) Microscopic Urinalysis Comment CULT NOT INDICATED Result Diagram: 04/11/16 0700 04/11/16 0700 Microbiology Microbiology Date/Time Procedure Status Source Growth 04/09/16 10:55 Aerobic Blood Culture - Preliminary Resulted Blood Peripheral NO GROWTH IN 2 DAYS 04/09/16 10:55 Anaerobic Blood Culture - Preliminary Resulted Blood Peripheral NO GROWTH IN 2 DAYS Procedures * 04/03/16 - PEG placement * 04/03/16 - Biopsy of facial mass . 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 Pertinent Non-Medical Issues Psychosocial: Spiritual: Legal: Ethical issues impacting care: Important Contacts Brother Vish Nunn . . Prognosis Mr. Ribera is a 35 y/o male with no significant prior medical history who was admitted on 04/02/16 for treatment of facial mass. 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 Not a surgical candidate. Appears he has limited treatment options secondary to clinical condition, palliative radiation being considered. Patient's prognosis is very poor secondary to advanced cancer, profound physical deconditioning, and malnutrition. Patient is at high risk for further decline, additional complications and . . Plan * Patient appears incapacitated to make healthcare decisions at this time secondary to clinical condition, obtunded. Unclear if he will regain. No living will or healthcare surrogate documents have been completed. As per [place] statute, healthcare proxy falls to patient's . However, is not available for medical decision-making as she resides in [facility]. Patient' s brother Vish Nunn serving as healthcare proxy. Patient in agreement to this, palliative care will assist patient with completion of healthcare surrogate documentation during this hospitalization. HCS and 'Five Wishes" booklet in [place] left with patient. * CODE STATUS: Not address during my visit. However, brother reporting that patient was asked about medical treatments earlier today and he is opting for "everything". Palliative care recommend against escalation of care in the setting of his terminal condition with poor prognosis for an improved quality of life or survival to discharge. * GOALS OF CARE: 04/11/16 -Patient's brother Obinna again verbalized wishing to continue current medical care in order to cure cancer. Discussed with brother that pt's current condition is terminal and NOT curable, discussed that patient will from it. Reviewed current medical management to include palliation of symptoms. Brother tells me that I am the only person telling them that pt's condition is terminal and not curable. Encouraged patient and brother to discuss prognosis with attending and consulting providers. * Case discussed with bedside RN. * SYMPTOMS: ==Oral pain, secondary to burden of disease. Lortab and Morphine available as needed. ==Debility: secondary to burden of disease and malnutrition. Progressive over the past 6 months. Peg tube in place with ongoing feeding. Likely to worsen. * Palliative care contact information provided to patient and brother. * Palliative care will continue to f/u with patient and family for further clarification of goals and for emotional support. . Time Spent Total Floor Time (mins): 40 (Total time to include review of medical records, physical exam, conversation with patient and brother and case discussion with bedside RN. ) Face to Face Time (mins): 32 >50% Counseling/Coord of Care: Yes Attestation To help prompt me to consider important information that might be impacting today's encounter and assessment, information from prior notes written by myself or my colleagues may have been "brought forward" into today's note. My signature on this note, however, is an attestation that I personally performed the exam, history, and/or decision-making noted today, and, unless otherwise indicated, the interactions with patient, family, and staff as well as the review of records all occurred today. I also attest that the listed assessment and stated plan reflect my best clinical judgment today based on the combination of historical information, prior notes, and today's exam/ interactions. When time spent is documented, it refers only to time spent today by the signer, or if indicated, combined time spent today by collaborating physician/nurse practitioner. Manda De Anda Apr 11, 2016 16:54
[2016-04-11] MEDS: ENOXAPARIN SODIUM 30 MG/0.3 ML SYRINGE SQ SCH (17:15)
[2016-04-11] MEDS: ACETAMINOPHEN 325MG/HYDROcodone 7.5MG/15ML UDC PO PRN (17:15)
[2016-04-12] VITALS: BP 93/59; PULSE 103; RESP 18; TEMP 98.1; O2SAT 100
[2016-04-12 04:00] VITALS: BP 93/60; PULSE 101; RESP 17; TEMP 96.7; O2SAT 100
[2016-04-12] MEDS: ACETAMINOPHEN 325MG/HYDROcodone 7.5MG/15ML UDC PO PRN ×3 (04:29→22:14)
[2016-04-12] MEDS: diphenhydrAMINE HCL 25 MG CAP PO PRN (04:30)
[2016-04-12] MEDS: PIPERACIL-TAZO 3.375 GM PREMIX 50 ML IV SCH ×4 (04:55→22:54)
[2016-04-12] MEDS: FREE WATER G-TUBE SCH ×3 (04:55→16:19)
[2016-04-12 08:00] VITALS: PULSE 72
[2016-04-12] MEDS: SODIUM CHLORIDE 0.9% FLUSH 5 ML FLUSH IVF SCH ×2 (09:00→22:15)
[2016-04-12 09:05] LABS: BICARBONATE 24.5 MEQ/L (21.0-32.0); MAGNESIUM 1.3 MG/DL (1.5-2.5); POTASSIUM 3.4 MEQ/L (3.5-5.1)
[2016-04-12 09:49] LABS: CALCIUM-PROTEIN CORRECTED 6.5 MG/DL (8.5-10.1)
--- NOTE | 2016-04-12 09:54 | PD.ONC.PN ---
Subjective Subjective Remarks Afebrile overnight. Patient resting comfortably. Brother at bedside has multiple questions. Translation service used. Objective Data Date Time Temp Pulse Resp B/P Pulse Ox O2 Delivery O2 Flow Rate FiO2 04/12/16 04:00 96.7 101 17 93/60 100 04/12/16 00:00 98.1 103 18 93/59 100 04/11/16 20:32 96 04/11/16 20:00 97.7 94 18 90/62 98 04/11/16 16:00 98.1 103 16 98/55 97 04/11/16 12:00 98.7 80 16 87/57 97 Result Diagram: 04/11/16 0700 04/12/16 0719 Laboratory Results Laboratory Tests Test 04/12/16 07:19 Sodium Level 137 MEQ/L Potassium Level 3.4 MEQ/L Chloride Level 105 MEQ/L Carbon Dioxide Level 24.5 MEQ/L Anion Gap 8 MEQ/L Blood Urea Nitrogen 8 MG/DL Creatinine 0.55 MG/DL Estimat Glomerular Filtration 169 ML/MIN Rate Random Glucose 114 MG/DL Calcium Level 5.9 MG/DL Protein Corrected Calcium 6.5 MG/DL Magnesium Level 1.3 MG/DL Total Protein 5.8 GM/DL Culture Results Microbiology Date/Time Procedure Status Source Growth 04/09/16 10:55 Aerobic Blood Culture - Preliminary Resulted Blood Peripheral NO GROWTH IN 2 DAYS 04/09/16 10:55 Anaerobic Blood Culture - Preliminary Resulted Blood Peripheral NO GROWTH IN 2 DAYS Administered Medications Medications (Trade) Dose Ordered Sig/Sara Route PRN Reason Start Time Stop Time Status Last Admin Dose Admin Ondansetron HCl (Zofran Inj) 4 mg Q6H PRN IV PUSH NAUSEA 04/02/16 01:45 04/02/16 02:38 IV Flush (NS Flush) 2 ml UNSCH PRN IVF FLUSH AFTER USING IV ACCESS 04/02/16 08:15 04/04/16 02:03 IV Flush (NS Flush) 2 ml BID IVF 04/02/16 09:00 04/11/16 21:03 Diphenhydramine HCl (Benadryl) 25 mg Q6H PRN PO ITCHING 04/02/16 09:00 04/12/16 04:30 Enoxaparin Sodium (Lovenox Inj) 30 mg Q24H SQ 04/04/16 15:30 04/11/16 17:15 Water (Free Water) VOLUME: 200 ML Q6HR G-TUBE 04/04/16 08:45 04/12/16 04:55 Acetaminophen 650 mg 650 mg Q4H PRN PO FEVER OVER 101.0 04/07/16 01:45 04/07/16 21:31 Potassium Chloride/Dextrose/ Sod Cl 1,000 ml @ 42 mls/hr [id number] IV 04/07/16 07:45 04/11/16 23:32 Piperacillin Sod/ Tazobactam Sod (Zosyn 3.375 Gm Premix) 50 ml @ 100 mls/hr Q6H IV 04/07/16 11:00 04/12/16 04:55 Potassium Chloride (KCl 40 Meq/30 ml Liq) 40 meq Q12HR NG 04/08/16 12:00 04/11/16 21:03 Acetaminophen/ Hydrocodone Bitart (Hycet 325-7.5 Mg Liq) 15 ml Q3HR PRN PO pain1-9 04/08/16 14:45 04/12/16 04:29 Magnesium Oxide (Mag-Ox) 400 mg Q12HR PEG 04/10/16 14:45 04/12/16 21:00 04/11/16 21:03 Objective Remarks GENERAL: Young man lying in bed, sleeping on approach SKIN: warm and dry. deformity, right face. HEAD: Normocephalic. EYES: No injection or drainage. NECK: large tumor with bandages in place. CARDIOVASCULAR: Regular rate and rhythm RESPIRATORY: Breath sounds equal bilaterally. No accessory muscle use. GASTROINTESTINAL: Abdomen soft, non-tender. TF via G-tube. EXTREMITIES: No cyanosis. extremities warm and well perfused. NEUROLOGICAL: AO x 3. normal speech. moving all extremities. 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 Plan 1. agree with no code, DNR status 2. continue supportive care, tube feeds, Zosyn 3. XRT to start this week, will start chemotherapy shortly thereafter 4. multiple questions answered via translation service. 5. CT ab/pelvis and CT chest reviewed with Dr. Lezama, a few small nodules seen in lungs--could be mets or could be due to aspiration, lesions in liver could also be due to mets--However, it is irrelevant in the big picture and will not change our approach. Attending Statement The exam, history, and the medical decision-making described in the above note were completed with the assistance of the mid-level provider. I reviewed and agree with the findings presented. I attest that I had a [id number] encounter with the patient on the same day, and personally performed and documented my assessment and findings in the medical record. ct scans of chest and abd reviewed and the small pulmonary nodules (few mm in sized may be mets or ? aspiration. It does not impact tx as no matter what we do I expect it will be palliative. Finally he has consented to no CPR. I have spoken with Dr. Beaulieu and he will start xrt tomorrow and shortly afterwards will begin weekly carbo and taxol if stable. Sirisha Cotton Apr 12, 2016 09:54 Yovany Lezama MD Apr 12, 2016 19:52
--- NOTE | 2016-04-12 09:56 | HHI.PR ---
Subjective Remarks resting comfortably with no distress. pain seems to be fairly controlled. no fever. Objective Vitals Vital Signs Date Time Temp Pulse Resp B/P Pulse Ox O2 Delivery O2 Flow Rate FiO2 04/12/16 04:00 96.7 101 17 93/60 100 04/12/16 00:00 98.1 103 18 93/59 100 04/11/16 20:32 96 04/11/16 20:00 97.7 94 18 90/62 98 04/11/16 16:00 98.1 103 16 98/55 97 04/11/16 12:00 98.7 80 16 87/57 97 I/O 04/11/16 04/11/16 04/11/16 04/12/16 04/12/16 04/12/16 07:00 15:00 23:00 07:00 15:00 23:00 Intake Total 1875 ml 240 ml 1590 ml Output Total 150 ml Balance 1725 ml 240 ml 1590 ml Intake Oral 240 ml IV Total 495 ml 795 ml Tube Feeding 980 ml 595 ml Other 400 ml 200 ml Output Urine Total 150 ml # Voids 2 1 Result Diagram: 04/11/16 0700 04/12/16 0719 Imaging Last Impressions Chest CT 04/11/16 0000 Signed Impressions: Service Date/Time: Monday, April 11, 2016 14:09 - CONCLUSION: 1. Multiple small scattered noncalcified pulmonary nodules which are nonspecific but are of concern for early metastatic disease. 2. The known large tumor mass in the right side of the face and neck is partially visualized with destructive change involving the right side of the mandible. This extends into the right supraclavicular region. Please see soft tissue neck CT for further details. 3. Low attenuation lesion in the left lobe of the liver again noted. Holland Villegas MD Abdomen/Pelvis CT 04/11/16 0000 Signed Impressions: Service Date/Time: Monday, April 11, 2016 14:09 - CONCLUSION: 1. 1.4 cm low-attenuation lesion left lobe of the liver of concern for a metastasis. There is a smaller more cystic appearing structure in the right lobe. 2. The remainder of the study is unremarkable except for a PEG tube in the stomach. Holland Villegas MD Upper Extremity Ultrasound 04/08/16 0000 Signed Impressions: Service Date/Time: Friday, April 08, 2016 13:04 - CONCLUSION: No thrombus. Deshawn Michele MD Chest X-Ray 04/03/16 0000 Signed Impressions: Service Date/Time: Sunday, April 03, 2016 16:42 - CONCLUSION: Left subclavian venous catheter positioned in the superior vena cava with no pneumothorax Yaakov Montaño MD Neck CT 04/02/16 0000 Signed Impressions: Service Date/Time: Saturday, April 02, 2016 11:54 - CONCLUSION: Very large heterogeneous soft tissue mass along the right side of the face with gross destruction involving most of the right mandible. The mass contains amorphous calcifications and appears to involve the right sternocleidomastoid muscle. The mass appears to extend into the oral cavity with diffuse enlargement of the right tonsillar pillar. Neoplastic disease in the primary consideration. Niall Corrales MD Multiplanar Reconstruction 04/02/16 0000 Signed Impressions: Service Date/Time: Saturday, April 02, 2016 11:54 - CONCLUSION: 3-D reconstructive images demonstrating destruction involving most the right side of the mandible. Niall Corrales MD Head CT 04/02/16 0000 Signed Impressions: Service Date/Time: Saturday, April 02, 2016 11:54 - CONCLUSION: 1. Unremarkable CT scan of the brain 2. Large abnormal soft tissue mass with calcifications along the right side of the face. Niall Corrales MD Objective Remarks GENERAL: in no acute distress HEENT; swollen right face- covered with clean dressing. CARDIOVASCULAR: Regular rate and regular rhythm without murmurs, gallops, or rubs. RESPIRATORY: Clear to auscultation. Breath sounds equal bilaterally. No wheezes , rales, or rhonchi. GASTROINTESTINAL: Abdomen soft, non-tender, nondistended. Normal, active bowel sounds MUSCULOSKELETAL: Extremities without clubbing, cyanosis, or edema. NEURO: Alert & Oriented x4 to person, place, time, situation. Moves all ext x4 Procedures central line placement PEG placement bone biopsy teeth extraction Medications and IVs Current Medications Sodium Chloride (NS 1000 ml Inj) 1,000 ml @ 75 mls/hr [id number] IV Last administered on 04/02/16t 02:38; Start 04/02/16 at 01:45; Stop 04/02/16 at 08:25 ; Status DC Morphine Sulfate (Morphine Inj) 2 mg Q2H PRN IV BREAKTHROUGH PAIN Last administered on 04/02/16 02:38; Start 04/02/16 at 01:45; Stop 04/08/16 at 09:45 ; Status DC Ondansetron HCl 4 mg 4 mg Q6H PRN IV PUSH NAUSEA Last administered on 02:38; Start 04/02/16 at 01:45 Sodium Chloride 500 ml @ 0 mls/hr BOLUS ONCE IV Last administered on 04:00; Start 04/02/16 at 04:00; Stop 04/02/16 at 04:01; Status DC Potassium Chloride/Dextrose/ Sod Cl (D5-NS + KCl 20 Meq Inj) 1,000 ml @ 125 mls /hr Q8H IV Last administered on 04/03/16 11:51; Start 04/02/16 at 09:00; Stop 04/04/16 at 08:51; Status DC IV Flush (NS Flush) 2 ml UNSCH PRN IVF FLUSH AFTER USING IV ACCESS Last administered on 04/04/16 02:03; Start 04/02/16 at 08:15 IV Flush (NS Flush) 2 ml BID IVF Last administered on 04/11/16 21:03; Start at 09:00 Acetaminophen (Tylenol) 650 mg Q4H PRN PO PAIN SCALE 1 TO 10; Start 04/02/16 at 09:00; Stop 04/02/16 at 09:00; Status DC Ibuprofen (Motrin) 600 mg Q4H PRN PO PAIN SCALE 1 TO 5; Start 04/02/16 at 08:15 ; Stop 04/02/16 at 08:49; Status DC Hydromorphone HCl (Dilaudid Pf Inj) 0.5 mg Q2H PRN IV PAIN SCALE 6 TO 10; Start 04/02/16 at 08:15; Stop 04/02/16 at 08:49; Status DC Diphenhydramine HCl (Benadryl) 25 mg Q6H PRN PO ITCHING Last administered on 04:30; Start 04/02/16 at 09:00 Miscellaneous Information (Post-op Orders (for Pharmacy)) STAT ONCE XX ; Start 04/02/16 at 08:15; Stop 04/03/16 at 06:06; Status DC Miscellaneous Information 1 ONCE ONCE XX ; Start 04/02/16 at 08:15; Stop at 06:06; Status DC Enoxaparin Sodium (Lovenox Inj) 30 mg Q24H SQ Last administered on 04/11/16 17: 15; Start 04/04/16 at 15:30 Naloxone HCl (Narcan Inj) 0.4 mg UNSCH PRN IV RESPIRATORY RATE LESS THAN 10; Start 04/02/16 at 08:15; Stop 04/02/16 at 08:49; Status DC Diphenhydramine HCl (Benadryl Inj) 25 mg Q6H PRN IV ITCHING; Start 04/02/16 at 09:00; Stop 04/02/16 at 09:00; Status DC PRODUCT PROMOTER RETAIL PET Dosage Infused (Pha) 1 Q8HR .XX ; Start 04/02/16 at 09:00; Stop 04/02/16 at 09:00; Status DC Acetaminophen/ Hydrocodone Bitart (Hycet 325-7.5 Mg Liq) 15 ml Q4H PRN PO Last administered on 04/08/16 10:31; Start 04/02/16 at 09:00; Stop 04/08/16 at 14 :40; Status DC Ibuprofen (Motrin Liq) 600 mg Q4H PRN PO PAIN SCALE 1-5; Start 04/02/16 at 09: 00; Stop 04/02/16 at 09:02; Status DC Ibuprofen 600 mg 600 mg Q4H PRN PO PAIN SCALE 1-5; Start 04/02/16 at 09:02 Sodium Chloride (NS 500 ml Inj) 500 ml @ 30 mls/hr [id number] IV ; Start 04/03/16 at 03:15; Stop 04/04/16 at 03:14; Status DC Bupivacaine HCl/ Epinephrine Bitart (Sensorcaine-Epinephrine Pf 0.25% Inj) 20 ml STK-MED ONCE .ROUTE ; Start 04/03/16 at 13:46; Stop 04/03/16 at 13:47; Status DC Chlorhexidine Gluconate (Peridex 0.12% Liq) 60 ml STK-MED ONCE .ROUTE ; Start at 13:46; Stop 04/03/16 at 13:47; Status DC Heparin Sodium (Porcine) (Heparin Inj) 10,000 units STK-MED ONCE .ROUTE ; Start 04/03/16 at 13:46; Stop 04/03/16 at 13:47; Status DC Heparin Sodium (Porcine) (Heparin Inj) 10,000 units STK-MED ONCE .ROUTE ; Start 04/03/16 at 13:46; Stop 04/03/16 at 13:47; Status DC Cefazolin Sodium (Ancef Inj) 1,000 mg STK-MED ONCE IV Last administered on 04/03 14:43; Start 04/03/16 at 14:43; Stop 04/03/16 at 15:03; Status DC Lidocaine/ Epinephrine (Xylocaine-Epi 1%-1:100,000 Inj) 50 ml STK-MED ONCE .ROUTE ; Start 04/03/16 at 15:35; Stop 04/03/16 at 15:36; Status DC Lidocaine/ Epinephrine (Xylocaine-Epi 2%-1:100,000 Inj) 30 ml STK-MED ONCE .ROUTE Last administered on 04/03/16 16:01; Start 04/03/16 at 15:35; Stop at 15:36; Status DC Microfibriller Collagen Hemostat (Avitene Powder Pack) 1 gm STK-MED ONCE .ROUTE ; Start 04/03/16 at 15:41; Stop 04/03/16 at 15:42; Status DC Fentanyl Citrate 250 mcg 250 mcg STK-MED ONCE .ROUTE ; Start 04/03/16 at 16:34; Stop 04/03/16 at 16:35; Status DC Sodium Chloride 11 meq/Sodium Acetate 59 meq/ Potassium Chloride 40 meq/ Magnesium Chloride 10 meq/ Multivitamins 10 ml/Folic Acid 1 mg/Amino Acids/ Dextrose 2,067.5261 ml @ 83 mls/hr Q24H IV-CENTRAL Last administered on 22:27; Start 04/03/16 at 20:00; Stop 04/08/16 at 09:30; Status DC Fat Emulsion Intravenous (Liposyn Iii 20% Inj) 250 ml @ 10 mls/hr Q24H IV- CENTRAL Last administered on 04/06/16 22:26; Start 04/03/16 at 20:00; Stop 04/08 at 09:31; Status DC Morphine Sulfate (*morphine INJ PERIprocedure ONLY) 8 mg STK-MED ONCE .ROUTE Last administered on 04/03/16 17:22; Start 04/03/16 at 17:22; Stop 04/03/16 at 17:23; Status DC Miscellaneous Information ALL NURSING DEPARTME... UNSCH PRN XX SEE LABEL COMMENTS; Start 04/03/16 at 16:28; Stop 04/04/16 at 16:27; Status DC Potassium Chloride 100 ml @ 50 mls/hr Q2H IV Last administered on 04/04/16 01 :52; Start 04/03/16 at 21:45; Stop 04/04/16 at 01:44; Status DC Magnesium Sulfate/ Dextrose (Magnesium Sulfate 1 Gm Premix) 100 ml @ 100 mls/ hr Q1H IV Last administered on 04/04/16 00:16; Start 04/03/16 at 21:45; Stop 04/03/16 at 23:44; Status DC Water (Free Water) VOLUME: 200 ML Q6HR G-TUBE Last administered on 04/12/16 04: 55; Start 04/04/16 at 08:45 Potassium Chloride (KCl 40 Meq/30 ml Liq) 40 meq ONCE ONCE PEG Last administered on 04/04/16 10:45; Start 04/04/16 at 10:45; Stop 04/04/16 at 10:50 ; Status DC Propofol (Diprivan 200 Mg/20 ml Inj) 200 mg STK-MED ONCE IV ; Start 04/03/16 at 10:46; Stop 04/04/16 at 10:46; Status DC Phenylephrine HCl (Neosynephrine/ NS 1000 Mcg/10ml Syr) 1,000 mcg STK-MED ONCE IV ; Start 04/03/16 at 10:46; Stop 04/04/16 at 10:46; Status DC Ondansetron HCl 4 mg 4 mg STK-MED ONCE IV PUSH ; Start 04/03/16 at 10:46; Stop 04/04/16 at 10:46; Status DC Lactated Ringer's 1,000 ml @ As Directed STK-MED ONCE IV ; Start 04/03/16 at 10 :46; Stop 04/04/16 at 10:46; Status DC Pamidronate Disodium/Sodium Chloride (Aredia Inj/NS 1000 ml Inj) 1,000 ml @ 42 mls/hr ONCE ONCE IV Last administered on 04/04/16 23:37; Start 04/04/16 at 22 :00; Stop 04/05/16 at 21:48; Status DC Potassium Chloride 40 meq 40 meq ONCE ONCE PEG Last administered on 04/05/16 15:12; Start 04/05/16 at 12:00; Stop 04/05/16 at 12:01; Status DC Levofloxacin/ Dextrose 100 ml @ 100 mls/hr Q24H IV Last administered on 22:27; Start 04/06/16 at 18:00; Stop 04/07/16 at 09:06; Status DC Sodium Chloride (NS 1000 ml Inj) 1,000 ml @ 0 mls/hr BOLUS ONCE IV Last administered on 04/07/16 01:00; Start 04/07/16 at 01:00; Stop 04/07/16 at 01:01; Status DC Acetaminophen (Tylenol) 650 mg Q4H PRN PO FEVER OVER 101.0 Last administered on 04/07/16 21:31; Start 04/07/16 at 01:45 Metoprolol Tartrate 25 mg 25 mg ONCE ONCE PO Last administered on 04/07/16 03: 16; Start 04/07/16 at 03:15; Stop 04/07/16 at 03:16; Status DC Potassium Chloride/Dextrose/ Sod Cl (D5-NS + KCl 20 Meq Inj) 1,000 ml @ 42 mls/ hr [id number] IV Last administered on 04/11/16 23:32; Start 04/07/16 at 07:45 Potassium Chloride 40 meq 40 meq ONCE ONCE PO Last administered on 04/07/16 08 :15; Start 04/07/16 at 08:15; Stop 04/07/16 at 08:18; Status DC Cefepime HCl 2000 mg/Sodium Chloride 100 ml @ 200 mls/hr Q12H IV Last administered on 04/07/16 09:00; Start 04/07/16 at 09:00; Stop 04/07/16 at 09:07; Status DC Piperacillin Sod/ Tazobactam Sod 50 ml @ 100 mls/hr Q6H IV Last administered on 04/12/16 04:55; Start 04/07/16 at 11:00 Magnesium Sulfate/ Dextrose (Magnesium Sulfate 1 Gm Premix) 100 ml @ 100 mls/ hr ONCE ONCE IV Last administered on 04/07/16 15:30; Start 04/07/16 at 13:15; Stop 04/07/16 at 14:14; Status DC Potassium Chloride (KCl 40 Meq/30 ml Liq) 40 meq ONCE ONCE PEG Last administered on 04/07/16 15:30; Start 04/07/16 at 13:15; Stop 04/07/16 at 13:16; Status DC Lidocaine HCl (Xylocaine 1% Inj (50 ml)) 50 ml STK-MED ONCE .ROUTE ; Start at 15:46; Stop 04/07/16 at 15:47; Status DC Metoprolol Tartrate (Lopressor) 25 mg ONCE ONCE PO ; Start 04/08/16 at 00:15; Stop 04/08/16 at 00:16; Status DC Morphine Sulfate (Morphine Inj) 2 mg Q4HR IV ; Start 04/08/16 at 12:00; Status Hold Morphine Sulfate 2 mg 2 mg Q2HR PRN IV PUSH PAIN SCALE 9 TO 10; Start 04/08/16 at 09:00 Potassium Chloride (KCl 20 Meq Premix Inj) 100 ml @ 50 mls/hr Q2H IV Last administered on 04/08/16 18:59; Start 04/08/16 at 12:00; Stop 04/08/16 at 15:59; Status DC Potassium Chloride (KCl 40 Meq/30 ml Liq) 40 meq Q12HR NG Last administered on 04/11/16 21:03; Start 04/08/16 at 12:00 Acetaminophen/ Hydrocodone Bitart 15 ml 15 ml Q3HR PRN PO pain1-9 Last administered on 04/12/16 04:29; Start 04/08/16 at 14:45 Potassium Chloride (KCl 20 Meq Premix Inj) 100 ml @ As Directed STK-MED ONCE .ROUTE ; Start 04/08/16 at 18:57; Stop 04/08/16 at 18:58; Status DC Magnesium Oxide (Mag-Ox) 400 mg Q12HR PEG Last administered on 04/11/16 21:03; Start 04/10/16 at 14:45; Stop 04/12/16 at 21:00 Potassium Chloride 40 meq 40 meq ONCE ONCE PEG ; Start 04/11/16 at 09:00; Stop 04/11/16 at 09:35; Status DC Magnesium Sulfate/ Dextrose (Magnesium Sulfate 1 Gm Premix) 100 ml @ 100 mls/ hr ONCE ONCE IV Last administered on 04/11/16 10:03; Start 04/11/16 at 09:00; Stop 04/11/16 at 09:59; Status DC Iohexol (Omnipaque 350 Inj) 95 ml STK-MED ONCE IV Last administered on 14:39; Start 04/11/16 at 14:39; Stop 04/11/16 at 14:40; Status DC A/P Assessment and Plan 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 The mass contains amorphous calcifications and appears to involve the right sternocleidomastoid muscle. The mass appears to extend into the oral cavity with diffuse enlargement of the right tonsillar pillar. CT of the chest and abdomen with possible lung/ liver mets. 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 continue with pain control. general and facial surgery following. -sepsis with possible right facial wound and central line as the source-central line discontinued- now fever has resolved one bottle of blood cultures with pseudomonas stutzeri - continue IV Zosyn- repeated blood cultures 2/5 negative so far- -acute kidney injury/ hyponatremia due to dehydration-- improved - will monitor -hypercalcemia- received a dose of aradia- corrected calcium today 7.9. -anemia- s/p PRBC transfusion- will monitor H/H- -hypokalemia/hypomagnesemia; will replace and monitor. -severe malnutrition- s/p PEG placement-started on tube feeding - relationship specialist consulted. -DVT prophylaxis with lovenox -DNR status palliative care following. Meredith Acosta MD Apr 12, 2016 09:56
[2016-04-12 09:59] VITALS: BP 99/59; PULSE 93; RESP 18; TEMP 97.2; O2SAT 99
[2016-04-12] MEDS: MAGNESIUM OXIDE 400 MG TAB PEG SCH ×2 (11:06→22:14)
[2016-04-12] MEDS: POTASSIUM CL 40 MEQ/30 ML LIQ UDC NG SCH ×2 (11:06→22:14)
--- NOTE | 2016-04-12 15:14 | HHI.PR ---
Subjective Subjective Notes no problems per brother, starting radiation soon. Objective Vitals/I&O Vital Signs Date Time Temp Pulse Resp B/P Pulse Ox O2 Delivery O2 Flow Rate FiO2 04/12/16 09:59 97.2 93 18 99/59 99 Labs Laboratory Tests Test 04/12/16 07:19 Sodium Level 137 Potassium Level 3.4 Chloride Level 105 Carbon Dioxide Level 24.5 Anion Gap 8 Blood Urea Nitrogen 8 Creatinine 0.55 Estimat Glomerular Filtration 169 Rate Random Glucose 114 Calcium Level 5.9 Protein Corrected Calcium 6.5 Magnesium Level 1.3 Total Protein 5.8 Date/Time Procedure Status Source Growth 04/09/16 10:55 Aerobic Blood Culture - Preliminary Resulted Blood Peripheral NO GROWTH IN 3 DAYS 04/09/16 10:55 Anaerobic Blood Culture - Preliminary Resulted Blood Peripheral NO GROWTH IN 3 DAYS Cardiovascular: Regular Lungs: Clear Abdomen: Non-distended Narrative Exam facial dressing in place, clean and dry. 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 - Fever may also be necrotic tumor - D/W Dr Lezama and patient's brother. [place] [facility] [place], or pressors are indicated due to his terminal condition. Supportive care only. Palliative care at bedside. - Palliative radiation and/or surgery will depend on patient's clinical condition. Dr Beaulieu planning to start radiation Sunday. Dr. Lezama will add chemo as well. - labs stable -- will order US to evaluate liver mass for metastatic disease. Juan Oseguera MD Apr 12, 2016 15:14
[2016-04-12] MEDS: ENOXAPARIN SODIUM 30 MG/0.3 ML SYRINGE SQ SCH (16:19)
[2016-04-12 20:00] VITALS: BP 92/62; PULSE 95; RESP 17; TEMP 96; O2SAT 99
[2016-04-12 23:00] VITALS: PULSE 100
--- NOTE | 2016-04-12 23:40 | RADRPT ---
EXAM DATE/TIME: 04/12/2016 22:29 [facility] COMPARISON: CT ABDOMEN & PELVIS W CONTRAST, April 11, 2016, 14:09. INDICATIONS : Left lobe mass seen on CT. MEDICAL HISTORY : Ear/nose/throat carcinoma. Abdominal pain. UTI. Muscle pain and stiffness. Depression. SURGICAL HISTORY : Chemotherapy. Blood transfusions. ENCOUNTER: Initial ACUITY: 1 day PAIN SCORE: 0/10 LOCATION: Bilateral upper quadrant MEASUREMENTS: LIVER: 19.2 cm length COMMON DUCT: 5 mm RIGHT KIDNEY: 11.8 x 5.6 x 4.5 cm SPLEEN: 10.9 cm length FINDINGS: LIVER: Solid hypoechoic 1.9 x 1.2 x 1.8 cm mass left lobe of the liver with blood flow seen on color Doppler imaging. There is also a small cyst in the right lobe measuring 6 x 6 x 5 mm. COMMON DUCT: No intraluminal mass or stone visualized. GALLBLADDER: Cholelithiasis. No wall thickening or pericholecystic fluid. PANCREAS: The visualized portions are within normal limits. RIGHT KIDNEY: No hydronephrosis, stone or mass. SPLEEN: No focal lesion. CONCLUSION: 1. Solid indeterminate mass in the left lobe of the liver as well as a tiny cyst. An MRI of the abdom en with without contrast may be helpful for further assessment if felt clinically warranted. The poss ibility of a metastatic lesion is not excluded. 2. Cholelithiasis. 3. Bilateral pleural effusions are suspected sonographically. Chau Ward MD on April 12, 2016 at 23:36 Board Certified Radiologist. This report was verified electronically.
[2016-04-13] VITALS (9 sets, daily range): BP systolic 86–102; BP diastolic 52–62; PULSE 90–106; RESP 16–20; TEMP 96.2–98.3; O2SAT 97–100
[2016-04-13] MEDS: FREE WATER G-TUBE SCH ×5 (00:54→22:58)
[2016-04-13] MEDS: D5-NS + KCL 20 MEQ INJ 1,000 ML IV SCH (05:58)
[2016-04-13] MEDS: PIPERACIL-TAZO 3.375 GM PREMIX 50 ML IV SCH ×4 (05:58→22:56)
[2016-04-13] MEDS: POTASSIUM CL 40 MEQ/30 ML LIQ UDC NG SCH ×2 (10:32→19:56)
[2016-04-13] MEDS: SODIUM CHLORIDE 0.9% FLUSH 5 ML FLUSH IVF SCH ×2 (10:32→19:57)
[2016-04-13 11:04] LABS: BICARBONATE 22.1 MEQ/L (21.0-32.0); POTASSIUM 3.7 MEQ/L (3.5-5.1)
[2016-04-13 11:41] LABS: CALCIUM-PROTEIN CORRECTED 6.8 MG/DL (8.5-10.1)
--- NOTE | 2016-04-13 13:30 | HHI.PR ---
Subjective Remarks resting comfortably with no distress. pain is controlled. no new complaints. no fever. Objective Vitals Vital Signs Date Time Temp Pulse Resp B/P Pulse Ox O2 Delivery O2 Flow Rate FiO2 04/13/16 12:00 97.1 102 18 95/52 100 04/13/16 10:00 98.3 101 18 91/62 99 04/13/16 04:00 97.2 101 16 94/57 100 04/13/16 00:00 96.6 98 18 102/62 98 04/12/16 23:00 100 04/12/16 20:00 96.0 95 17 92/62 99 I/O 04/12/16 04/12/16 04/12/16 04/13/16 04/13/16 04/13/16 07:00 15:00 23:00 07:00 15:00 23:00 Intake Total 1590 ml 0 ml Output Total 200 ml Balance 1590 ml 0 ml -200 ml Intake Oral 0 ml IV Total 795 ml Tube Feeding 595 ml Other 200 ml Output Urine Total 200 ml # Voids 1 2 2 Result Diagram: 04/11/16 0700 04/13/16 1005 Imaging Last Impressions Liver Ultrasound 04/12/16 0000 Signed Impressions: Service Date/Time: Tuesday, April 12, 2016 22:29 - CONCLUSION: 1. Solid indeterminate mass in the left lobe of the liver as well as a tiny cyst. An MRI of the abdomen with without contrast may be helpful for further assessment if felt clinically warranted. The possibility of a metastatic lesion is not excluded. 2. Cholelithiasis. 3. Bilateral pleural effusions are suspected sonographically. Chau Ward MD Chest CT 04/11/16 0000 Signed Impressions: Service Date/Time: Monday, April 11, 2016 14:09 - CONCLUSION: 1. Multiple small scattered noncalcified pulmonary nodules which are nonspecific but are of concern for early metastatic disease. 2. The known large tumor mass in the right side of the face and neck is partially visualized with destructive change involving the right side of the mandible. This extends into the right supraclavicular region. Please see soft tissue neck CT for further details. 3. Low attenuation lesion in the left lobe of the liver again noted. Holland Villegas MD Abdomen/Pelvis CT 04/11/16 0000 Signed Impressions: Service Date/Time: Monday, April 11, 2016 14:09 - CONCLUSION: 1. 1.4 cm low-attenuation lesion left lobe of the liver of concern for a metastasis. There is a smaller more cystic appearing structure in the right lobe. 2. The remainder of the study is unremarkable except for a PEG tube in the stomach. Holland Villegas MD Upper Extremity Ultrasound 04/08/16 Signed Impressions: Service Date/Time: Friday, April 08, 2016 13:04 - CONCLUSION: No thrombus. Deshawn Michele MD Chest X-Ray 04/03/16 Signed Impressions: Service Date/Time: Sunday, April 03, 2016 16:42 - CONCLUSION: Left subclavian venous catheter positioned in the superior vena cava with no pneumothorax Yaakov Montaño MD Neck CT 04/02/16 0000 Signed Impressions: Service Date/Time: Saturday, April 02, 2016 11:54 - CONCLUSION: Very large heterogeneous soft tissue mass along the right side of the face with gross destruction involving most of the right mandible. The mass contains amorphous calcifications and appears to involve the right sternocleidomastoid muscle. The mass appears to extend into the oral cavity with diffuse enlargement of the right tonsillar pillar. Neoplastic disease in the primary consideration. Niall Corrales MD Multiplanar Reconstruction 04/02/16 Signed Impressions: Service Date/Time: Saturday, April 02, 2016 11:54 - CONCLUSION: 3-D reconstructive images demonstrating destruction involving most the right side of the mandible. Niall Corrales MD Head CT 04/02/16 0000 Signed Impressions: Service Date/Time: Saturday, April 02, 2016 11:54 - CONCLUSION: 1. Unremarkable CT scan of the brain 2. Large abnormal soft tissue mass with calcifications along the right side of the face. Niall Corrales MD Objective Remarks GENERAL: in no acute distress HEENT; swollen right face- covered with clean dressing. CARDIOVASCULAR: Regular rate and regular rhythm without murmurs, gallops, or rubs. RESPIRATORY: Clear to auscultation. Breath sounds equal bilaterally. No wheezes , rales, or rhonchi. GASTROINTESTINAL: Abdomen soft, non-tender, nondistended. Normal, active bowel sounds MUSCULOSKELETAL: Extremities without clubbing, cyanosis, or edema. NEURO: Alert & Oriented x4 to person, place, time, situation. Moves all ext x4 Procedures central line placement PEG placement bone biopsy teeth extraction Medications and IVs Current Medications Sodium Chloride (NS 1000 ml Inj) 1,000 ml @ 75 mls/hr [id number] IV Last administered on 04/02/16 02:38; Start 04/02/16 at 01:45; Stop 04/02/16 at 08:25 ; Status DC Morphine Sulfate (Morphine Inj) 2 mg Q2H PRN IV BREAKTHROUGH PAIN Last administered on 04/02/16 02:38; Start 04/02/16 at 01:45; Stop 04/08/16 at 09:45 ; Status DC Ondansetron HCl 4 mg 4 mg Q6H PRN IV PUSH NAUSEA Last administered on 02:38; Start 04/02/16 at 01:45 Sodium Chloride 500 ml @ 0 mls/hr BOLUS ONCE IV Last administered on 04:00; Start 04/02/16 at 04:00; Stop 04/02/16 at 04:01; Status DC Potassium Chloride/Dextrose/ Sod Cl (D5-NS + KCl 20 Meq Inj) 1,000 ml @ 125 mls /hr Q8H IV Last administered on 04/03/16 11:51; Start 04/02/16 at 09:00; Stop 04/04/16 at 08:51; Status DC IV Flush (NS Flush) 2 ml UNSCH PRN IVF FLUSH AFTER USING IV ACCESS Last administered on 04/04/16 02:03; Start 04/02/16 at 08:15 IV Flush (NS Flush) 2 ml BID IVF Last administered on 04/13/16 10:32; Start at 09:00 Acetaminophen (Tylenol) 650 mg Q4H PRN PO PAIN SCALE 1 TO 10; Start 04/02/16 at 09:00; Stop 04/02/16 at 09:00; Status DC Ibuprofen (Motrin) 600 mg Q4H PRN PO PAIN SCALE 1 TO 5; Start 04/02/16 at 08:15 ; Stop 04/02/16 at 08:49; Status DC Hydromorphone HCl (Dilaudid Pf Inj) 0.5 mg Q2H PRN IV PAIN SCALE 6 TO 10; Start 04/02/16 at 08:15; Stop 04/02/16 at 08:49; Status DC Diphenhydramine HCl (Benadryl) 25 mg Q6H PRN PO ITCHING Last administered on 04:30; Start 04/02/16 at 09:00 Miscellaneous Information (Post-op Orders (for Pharmacy)) STAT ONCE XX ; Start 04/02/16 at 08:15; Stop 04/03/16 at 06:06; Status DC Miscellaneous Information 1 ONCE ONCE XX ; Start 04/02/16 at 08:15; Stop at 06:06; Status DC Enoxaparin Sodium (Lovenox Inj) 30 mg Q24H SQ Last administered on 04/12/16 16: 19; Start 04/04/16 at 15:30 Naloxone HCl (Narcan Inj) 0.4 mg UNSCH PRN IV RESPIRATORY RATE LESS THAN 10; Start 04/02/16 at 08:15; Stop 04/02/16 at 08:49; Status DC Diphenhydramine HCl (Benadryl Inj) 25 mg Q6H PRN IV ITCHING; Start 04/02/16 at 09:00; Stop 04/02/16 at 09:00; Status DC CITRUS PICKER Dosage Infused (Pha) 1 Q8HR .XX ; Start 04/02/16 at 09:00; Stop 04/02/16 at 09:00; Status DC Acetaminophen/ Hydrocodone Bitart (Hycet 325-7.5 Mg Liq) 15 ml Q4H PRN PO Last administered on 04/08/16 10:31; Start 04/02/16 at 09:00; Stop 04/08/16 at 14 :40; Status DC Ibuprofen (Motrin Liq) 600 mg Q4H PRN PO PAIN SCALE 1-5; Start 04/02/16 at 09: 00; Stop 04/02/16 at 09:02; Status DC Ibuprofen 600 mg 600 mg Q4H PRN PO PAIN SCALE 1-5; Start 04/02/16 at 09:02 Sodium Chloride (NS 500 ml Inj) 500 ml @ 30 mls/hr [id number] IV ; Start 04/03/16 at 03:15; Stop 04/04/16 at 03:14; Status DC Bupivacaine HCl/ Epinephrine Bitart (Sensorcaine-Epinephrine Pf 0.25% Inj) 20 ml STK-MED ONCE .ROUTE ; Start 04/03/16 at 13:46; Stop 04/03/16 at 13:47; Status DC Chlorhexidine Gluconate (Peridex 0.12% Liq) 60 ml STK-MED ONCE .ROUTE ; Start at 13:46; Stop 04/03/16 at 13:47; Status DC Heparin Sodium (Porcine) (Heparin Inj) 10,000 units STK-MED ONCE .ROUTE ; Start 04/03/16 at 13:46; Stop 04/03/16 at 13:47; Status DC Heparin Sodium (Porcine) (Heparin Inj) 10,000 units STK-MED ONCE .ROUTE ; Start 04/03/16 at 13:46; Stop 04/03/16 at 13:47; Status DC Cefazolin Sodium (Ancef Inj) 1,000 mg STK-MED ONCE IV Last administered on 04/03t 14:43; Start 04/03/16 at 14:43; Stop 04/03/16 at 15:03; Status DC Lidocaine/ Epinephrine (Xylocaine-Epi 1%-1:100,000 Inj) 50 ml STK-MED ONCE .ROUTE ; Start 04/03/16 at 15:35; Stop 04/03/16 at 15:36; Status DC Lidocaine/ Epinephrine (Xylocaine-Epi 2%-1:100,000 Inj) 30 ml STK-MED ONCE .ROUTE Last administered on 04/03/16t 16:01; Start 04/03/16 at 15:35; Stop at 15:36; Status DC Microfibriller Collagen Hemostat (Avitene Powder Pack) 1 gm STK-MED ONCE .ROUTE ; Start 04/03/16 at 15:41; Stop 04/03/16 at 15:42; Status DC Fentanyl Citrate 250 mcg 250 mcg STK-MED ONCE .ROUTE ; Start 04/03/16 at 16:34; Stop 04/03/16 at 16:35; Status DC Sodium Chloride 11 meq/Sodium Acetate 59 meq/ Potassium Chloride 40 meq/ Magnesium Chloride 10 meq/ Multivitamins 10 ml/Folic Acid 1 mg/Amino Acids/ Dextrose 2,067.5261 ml @ 83 mls/hr Q24H IV-CENTRAL Last administered on 22:27; Start 04/03/16 at 20:00; Stop 04/08/16 at 09:30; Status DC Fat Emulsion Intravenous (Liposyn Iii 20% Inj) 250 ml @ 10 mls/hr Q24H IV- CENTRAL Last administered on 04/06/16 22:26; Start 04/03/16 at 20:00; Stop 04/08 at 09:31; Status DC Morphine Sulfate (*morphine INJ PERIprocedure ONLY) 8 mg STK-MED ONCE .ROUTE Last administered on 04/03/16 17:22; Start 04/03/16 at 17:22; Stop 04/03/16 at 17:23; Status DC Miscellaneous Information ALL NURSING DEPARTME... UNSCH PRN XX SEE LABEL COMMENTS; Start 04/03/16 at 16:28; Stop 04/04/16 at 16:27; Status DC Potassium Chloride 100 ml @ 50 mls/hr Q2H IV Last administered on 04/04/16 01 :52; Start 04/03/16 at 21:45; Stop 04/04/16 at 01:44; Status DC Magnesium Sulfate/ Dextrose (Magnesium Sulfate 1 Gm Premix) 100 ml @ 100 mls/ hr Q1H IV Last administered on 04/04/16 00:16; Start 04/03/16 at 21:45; Stop 04/03/16 at 23:44; Status DC Water (Free Water) VOLUME: 200 ML Q6HR G-TUBE Last administered on 04/13/16 12: 00; Start 04/04/16 at 08:45 Potassium Chloride (KCl 40 Meq/30 ml Liq) 40 meq ONCE ONCE PEG Last administered on 04/04/16 10:45; Start 04/04/16 at 10:45; Stop 04/04/16 at 10:50 ; Status DC Propofol (Diprivan 200 Mg/20 ml Inj) 200 mg STK-MED ONCE IV ; Start 04/03/16 at 10:46; Stop 04/04/16 at 10:46; Status DC Phenylephrine HCl (Neosynephrine/ NS 1000 Mcg/10ml Syr) 1,000 mcg STK-MED ONCE IV ; Start 04/03/16 at 10:46; Stop 04/04/16 at 10:46; Status DC Ondansetron HCl 4 mg 4 mg STK-MED ONCE IV PUSH ; Start 04/03/16 at 10:46; Stop 04/04/16 at 10:46; Status DC Lactated Ringer's 1,000 ml @ As Directed STK-MED ONCE IV ; Start 04/03/16 at 10 :46; Stop 04/04/16 at 10:46; Status DC Pamidronate Disodium/Sodium Chloride (Aredia Inj/NS 1000 ml Inj) 1,000 ml @ 42 mls/hr ONCE ONCE IV Last administered on 04/04/16 23:37; Start 04/04/16 at 22 :00; Stop 04/05/16 at 21:48; Status DC Potassium Chloride 40 meq 40 meq ONCE ONCE PEG Last administered on 04/05/16 15:12; Start 04/05/16 at 12:00; Stop 04/05/16 at 12:01; Status DC Levofloxacin/ Dextrose 100 ml @ 100 mls/hr Q24H IV Last administered on 22:27; Start 04/06/16 at 18:00; Stop 04/07/16 at 09:06; Status DC Sodium Chloride (NS 1000 ml Inj) 1,000 ml @ 0 mls/hr BOLUS ONCE IV Last administered on 04/07/16 01:00; Start 04/07/16 at 01:00; Stop 04/07/16 at 01:01; Status DC Acetaminophen (Tylenol) 650 mg Q4H PRN PO FEVER OVER 101.0 Last administered on 04/07/16 21:31; Start 04/07/16 at 01:45 Metoprolol Tartrate 25 mg 25 mg ONCE ONCE PO Last administered on 04/07/16 03: 16; Start 04/07/16 at 03:15; Stop 04/07/16 at 03:16; Status DC Potassium Chloride/Dextrose/ Sod Cl (D5-NS + KCl 20 Meq Inj) 1,000 ml @ 42 mls/ hr [id number] IV Last administered on 04/13/16 05:58; Start 04/07/16 at 07:45 Potassium Chloride 40 meq 40 meq ONCE ONCE PO Last administered on 04/07/16 08 :15; Start 04/07/16 at 08:15; Stop 04/07/16 at 08:18; Status DC Cefepime HCl 2000 mg/Sodium Chloride 100 ml @ 200 mls/hr Q12H IV Last administered on 04/07/16 09:00; Start 04/07/16 at 09:00; Stop 04/07/16 at 09:07; Status DC Piperacillin Sod/ Tazobactam Sod 50 ml @ 100 mls/hr Q6H IV Last administered on 04/13/16 10:42; Start 04/07/16 at 11:00 Magnesium Sulfate/ Dextrose (Magnesium Sulfate 1 Gm Premix) 100 ml @ 100 mls/ hr ONCE ONCE IV Last administered on 04/07/16 15:30; Start 04/07/16 at 13:15; Stop 04/07/16 at 14:14; Status DC Potassium Chloride (KCl 40 Meq/30 ml Liq) 40 meq ONCE ONCE PEG Last administered on 04/07/16 15:30; Start 04/07/16 at 13:15; Stop 04/07/16 at 13:16; Status DC Lidocaine HCl (Xylocaine 1% Inj (50 ml)) 50 ml STK-MED ONCE .ROUTE ; Start at 15:46; Stop 04/07/16 at 15:47; Status DC Metoprolol Tartrate (Lopressor) 25 mg ONCE ONCE PO ; Start 04/08/16 at 00:15; Stop 04/08/16 at 00:16; Status DC Morphine Sulfate (Morphine Inj) 2 mg Q4HR IV ; Start 04/08/16 at 12:00; Status Hold Morphine Sulfate 2 mg 2 mg Q2HR PRN IV PUSH PAIN SCALE 9 TO 10; Start 04/08/16 at 09:00 Potassium Chloride (KCl 20 Meq Premix Inj) 100 ml @ 50 mls/hr Q2H IV Last administered on 04/08/16 18:59; Start 04/08/16 at 12:00; Stop 04/08/16 at 15:59; Status DC Potassium Chloride (KCl 40 Meq/30 ml Liq) 40 meq Q12HR NG Last administered on 04/13/16 10:32; Start 04/08/16 at 12:00 Acetaminophen/ Hydrocodone Bitart 15 ml 15 ml Q3HR PRN PO pain1-9 Last administered on 04/12/16 22:14; Start 04/08/16 at 14:45 Potassium Chloride (KCl 20 Meq Premix Inj) 100 ml @ As Directed STK-MED ONCE .ROUTE ; Start 04/08/16 at 18:57; Stop 04/08/16 at 18:58; Status DC Magnesium Oxide (Mag-Ox) 400 mg Q12HR PEG Last administered on 04/12/16 22:14; Start 04/10/16 at 14:45; Stop 04/12/16 at 21:00; Status DC Potassium Chloride 40 meq 40 meq ONCE ONCE PEG ; Start 04/11/16 at 09:00; Stop 04/11/16 at 09:35; Status DC Magnesium Sulfate/ Dextrose (Magnesium Sulfate 1 Gm Premix) 100 ml @ 100 mls/ hr ONCE ONCE IV Last administered on 04/11/16 10:03; Start 04/11/16 at 09:00; Stop 04/11/16 at 09:59; Status DC Iohexol (Omnipaque 350 Inj) 95 ml STK-MED ONCE IV Last administered on 14:39; Start 04/11/16 at 14:39; Stop 04/11/16 at 14:40; Status DC A/P Assessment and Plan 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 The mass contains amorphous calcifications and appears to involve the right sternocleidomastoid muscle. The mass appears to extend into the oral cavity with diffuse enlargement of the right tonsillar pillar. CT of the chest and abdomen with possible lung/ liver mets. 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 continue with pain control. general and facial surgery following. -sepsis with possible right facial wound and central line as the source-central line discontinued- now fever has resolved one bottle of blood cultures with pseudomonas stutzeri - continue IV Zosyn- repeated blood cultures 2/5 negative so far- -acute kidney injury/ hyponatremia due to dehydration-- improved - will monitor -hypercalcemia- received a dose of aradia-now corrected calcium with albumin today 8.5- will continue to monitor. -anemia- s/p PRBC transfusion- will monitor H/H- -hypokalemia/hypomagnesemia;replaced. -severe malnutrition- s/p PEG placement-started on tube feeding - yarn winder consulted. -DVT prophylaxis with lovenox -DNR status palliative care following. Meredith Acosta MD Apr 13, 2016 13:30
--- NOTE | 2016-04-13 13:49 | HHI.HCPN ---
Reason for visit a. To assist with evaluation and management of symptoms including: jaw/ facial pain and debility. b. To assist medical decision maker(s) with: better understanding of current medical conditions; weighing benefits/burdens of medical treatment options; making medical treatment decisions. Subjective/Interval History Palliative care f/u for pain and symptom management as well as clarifications of goals of care and emotional support. Patient seen in his room. Brother Vish at bedside. No oncology admin used or needed as we both speak fluent [place]. Patient was sitting up in recliner chair in no acute distress, reporting right-sided facial and shoulder/arm pain. Currently at 3/10, which is an acceptable level of pain to patient. Pain is worse with movement -opening mouth, alleviated by pain medication. Denies abdominal pain, nausea or shortness of breath. Heading head to yes/no questions and using hands to communicate. CT of chest 04/11/16 revealing multiple samuel pulmonary modules as well as liver lesions concerning for metastatic disease. Abd/pelvis CT 04/11/16 showing 1.4cm liver lesion concerning for metastatic disease. Patient afebrile, tachycardic with HR in the low 100's. Stable BP. No new labs. Brother reports that patient started radiation therapy this morning and he was able to tolerated well. Patient has been sipping juice and eating some spoonfuls of gelatin and apple sauce. Brother asking questions regarding respite and the possibility of having other family members assist with pt's care. They have an uncle and his family that lives in [place], brother asking if it would be ok for family to come and help him to take care of patient. Reviewed with pt and brother that family is welcome to visit and assist and to please let palliative care know if they need any documentation from the hospital for FMLA or request time off from work. Brother appreciative of today' s visit. Palliative care will continue to f/u as needed. . Family/friend interactions See interval note. . Advance Directives Living Will: Never completed Health Care Surrogate: Never completed Durable Power of [place]: Never completed Advance Directive Specifics Health Care Surrogate(s): No living will or healthcare surrogate documents have been completed. As per [place] statute, healthcare proxy falls to patient's . However, is not available for medical decision-making as she resides in [facility]. Patient' s brother Vish Nunn serving as healthcare proxy. Patient in agreement of this, palliative care will assist patient with completion of healthcare surrogate documentation. . Documented care wishes: No living will completed. . Significant change in goals: NO CODE. Continue with current treatment plan to include radiation therapy for palliation of symptoms. . Objective Vital Signs Date Time Temp Pulse Resp B/P Pulse Ox O2 Delivery O2 Flow Rate FiO2 04/13/16 12:00 97.1 102 18 95/52 100 04/13/16 10:00 98.3 101 18 91/62 99 04/13/16 04:00 97.2 101 16 94/57 100 04/13/16 00:00 96.6 98 18 102/62 98 04/12/16 23:00 100 04/12/16 20:00 96.0 95 17 92/62 99 Intake & Output 04/13/16 04/13/16 07:00 19:00 Output Total 200 ml Balance -200 ml Output Urine Total 200 ml # Voids 2 Physical Exam CONSTITUTIONAL/GENERAL: This is an cachectic, ill looking male in no acute distress. TUBES/LINES/DRAINS: PIV's. SCD's. SKIN: Skin temperature appropriate. Not diaphoretic. HEAD: Atraumatic. Normocephalic. EYES: Pupils equal and round and reactive. No injection or drainage. ENT: Hearing grossly normal. Large mass to right side of mouth/jaw with dressing in place. Moderate amount of green/brown purulent drainage noted. Foul odor. CARDIOVASCULAR: Tachycardic. Regular rate and rhythm.Peripheral pulses symmetric. RESPIRATORY/CHEST: Symmetric, unlabored respirations. Clear to auscultation. Breath sounds equal bilaterally. No wheezes, rales, or rhonchi. GASTROINTESTINAL: Abdomen soft, non-tender, nondistended. PEG in place. No guarding. Bowel sounds present. Ongoing tube feeding. MUSCULOSKELETAL: Extremities without clubbing, cyanosis, or edema. significant muscle wasting noted. NEUROLOGICAL: alert, following commands. Attempting to communicate by hand gestures and nodding head to yes/no questions. PSYCHIATRIC: calm. . Diagnostic Tests Laboratory Laboratory Tests Test 04/10/16 04/11/16 04/12/16 04/13/16 23:00 07:00 07:19 10:05 Urine Color YELLOW (YELLW/STRAW) Urine Turbidity CLEAR (CLEAR) Urine pH 8.0 (5.0-8.5) Urine Specific [place] 1.011 (1.002-1.035) Urine Protein TRACE mg/dL (NEG-TRACE) Urine Glucose (UA) 70 mg/dL (NEG) Urine Ketones NEG mg/dL (NEG) Urine Occult Blood NEG (NEG) Urine Nitrite NEG (NEG) Urine Bilirubin NEG (NEG) Urine Urobilinogen LESS THAN 2.0 MG/DL (LESS THAN 2.0) Urine Leukocyte Esterase NEG (NEG) Urine RBC 1 /hpf (0-3) Urine WBC 2 /hpf (0-5) Microscopic Urinalysis Comment CULT NOT INDICATED White Blood Count 19.0 TH/MM3 (4.0-11.0) Red Blood Count 3.04 MIL/MM3 (4.50-5.90) Hemoglobin 8.8 GM/DL (13.0-17.0) Hematocrit 25.9 % (39.0-51.0) Mean Corpuscular Volume 85.4 FL (80.0-100.0) Mean Corpuscular Hemoglobin 28.9 PG (27.0-34.0) Mean Corpuscular Hemoglobin 33.8 % Concent (32.0-36.0) Red Cell Distribution Width 15.3 % (11.6-17.2) Platelet Count 291 TH/MM3 (150-450) Mean Platelet Volume 5.9 FL (7.0-11.0) Neutrophils (%) (Auto) 85.6 % (16.0-70.0) Lymphocytes (%) (Auto) 6.1 % (9.0-44.0) Monocytes (%) (Auto) 6.2 % (0.0-8.0) Eosinophils (%) (Auto) 1.7 % (0.0-4.0) Basophils (%) (Auto) 0.4 % (0.0-2.0) Neutrophils # (Auto) 16.3 TH/MM3 (1.8-7.7) Lymphocytes # (Auto) 1.2 TH/MM3 (1.0-4.8) Monocytes # (Auto) 1.2 TH/MM3 (0-0.9) Eosinophils # (Auto) 0.3 TH/MM3 (0-0.4) Basophils # (Auto) 0.1 TH/MM3 (0-0.2) CBC Comment DIFF FINAL Differential Comment Sodium Level 137 MEQ/L 137 MEQ/L 136 MEQ/L (136-145) (136-145) (136-145) Potassium Level 3.3 MEQ/L 3.4 MEQ/L 3.7 MEQ/L (3.5-5.1) (3.5-5.1) (3.5-5.1) Chloride Level 105 MEQ/L 105 MEQ/L 105 MEQ/L (98-107) (98-107) (98-107) Carbon Dioxide Level 22.6 MEQ/L 24.5 MEQ/L 22.1 MEQ/L (21.0-32.0) (21.0-32.0) (21.0-32.0) Anion Gap 9 MEQ/L (5-15) 8 MEQ/L (5-15) 9 MEQ/L (5-15) Blood Urea Nitrogen 9 MG/DL (7-18) 8 MG/DL (7-18) 9 MG/DL (7-18) Creatinine 0.64 MG/DL 0.55 MG/DL 0.57 MG/DL (0.60-1.30) (0.60-1.30) (0.60-1.30) Estimat Glomerular Filtration 142 ML/MIN 169 ML/MIN 162 ML/MIN Rate (>89) (>89) (>89) Random Glucose 103 MG/DL 114 MG/DL 87 MG/DL (74-106) (74-106) (74-106) Calcium Level 6.0 MG/DL 5.9 MG/DL 6.5 MG/DL (8.5-10.1) (8.5-10.1) (8.5-10.1) Protein Corrected Calcium 6.6 MG/DL 6.5 MG/DL 6.8 MG/DL (8.5-10.1) (8.5-10.1) (8.5-10.1) Magnesium Level 1.1 MG/DL 1.3 MG/DL (1.5-2.5) (1.5-2.5) Total Protein 5.7 GM/DL 5.8 GM/DL 6.6 GM/DL (6.4-8.2) (6.4-8.2) (6.4-8.2) Albumin 1.4 GM/DL (3.4-5.0) Result Diagram: 04/11/16 0700 04/13/16 1005 Procedures * 04/03/16 - PEG placement * 04/03/16 - Biopsy of facial mass . 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 (2) Pain 0-10 Scale: 3 Comment: secondary to burden of disease. Pertinent Non-Medical Issues Psychosocial: Spiritual: Legal: Ethical issues impacting care: Important Contacts Brother Vish Nunn . . Prognosis Mr. Ribera is a 35 y/o male with no significant prior medical history who was admitted on 04/02/16 for treatment of facial mass. 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 Not a surgical candidate. Appears he has limited treatment options secondary to clinical condition, palliative radiation being considered. Patient's prognosis is very poor secondary to advanced cancer, profound physical deconditioning, and malnutrition. Patient is at high risk for further decline, additional complications and . . Code Status: No Code Plan * HCS completed. Patient designated his brother Vish Nunn as healthcare surrogate. * CODE STATUS: NO CODE. * GOALS OF CARE: 04/13/16 - Goal is to continue with current treatment plan for symptom management/improve quality of live. Brother verbalized understanding that pt's condition is terminal and not curable. They wish to continue current plan to include palliative radiation with hopes of receiving chemotherapy if/ when medically stable. * SYMPTOMS: ==Oral pain, secondary to burden of disease. Lortab and Morphine available as needed. ==Debility: secondary to burden of disease and malnutrition. Progressive over the past 6 months. Peg tube in place with ongoing feeding. Likely to worsen. * Palliative care contact information provided to patient and brother. * Palliative care will continue to f/u with patient and family for further clarification of goals and for emotional support. . Time Spent Total Floor Time (mins): 42 (Total time to include ereview of medical records, physical exam, bedside conversation with pt and brother. ) >50% Counseling/Coord of Care: Yes Attestation To help prompt me to consider important information that might be impacting today's encounter and assessment, information from prior notes written by myself or my colleagues may have been "brought forward" into today's note. My signature on this note, however, is an attestation that I personally performed the exam, history, and/or decision-making noted today, and, unless otherwise indicated, the interactions with patient, family, and staff as well as the review of records all occurred today. I also attest that the listed assessment and stated plan reflect my best clinical judgment today based on the combination of historical information, prior notes, and today's exam/ interactions. When time spent is documented, it refers only to time spent today by the signer, or if indicated, combined time spent today by collaborating physician/nurse practitioner. Manda De Anda Apr 13, 2016 13:48
--- NOTE | 2016-04-13 14:19 | PD.ONC.PN ---
Subjective Subjective Remarks Afebrile overnight. Patient denies pain. Started XRT last night. Objective Data Date Time Temp Pulse Resp B/P Pulse Ox O2 Delivery O2 Flow Rate FiO2 04/13/16 12:00 97.1 102 18 95/52 100 04/13/16 10:00 98.3 101 18 91/62 99 04/13/16 04:00 97.2 101 16 94/57 100 04/13/16 00:00 96.6 98 18 102/62 98 04/12/16 23:00 100 04/12/16 20:00 96.0 95 17 92/62 99 Result Diagram: 04/11/16 0700 04/13/16 1005 Laboratory Results Laboratory Tests Test 04/13/16 10:05 Sodium Level 136 MEQ/L Potassium Level 3.7 MEQ/L Chloride Level 105 MEQ/L Carbon Dioxide Level 22.1 MEQ/L Anion Gap 9 MEQ/L Blood Urea Nitrogen 9 MG/DL Creatinine 0.57 MG/DL Estimat Glomerular Filtration 162 ML/MIN Rate Random Glucose 87 MG/DL Calcium Level 6.5 MG/DL Protein Corrected Calcium 6.8 MG/DL Total Protein 6.6 GM/DL Administered Medications Medications (Trade) Dose Ordered Sig/Sara Route PRN Reason Start Time Stop Time Status Last Admin Dose Admin Ondansetron HCl (Zofran Inj) 4 mg Q6H PRN IV PUSH NAUSEA 04/02/16 01:45 04/02/16 02:38 IV Flush (NS Flush) 2 ml UNSCH PRN IVF FLUSH AFTER USING IV ACCESS 04/02/16 08:15 04/04/16 02:03 IV Flush (NS Flush) 2 ml BID IVF 04/02/16 09:00 04/13/16 10:32 Diphenhydramine HCl (Benadryl) 25 mg Q6H PRN PO ITCHING 04/02/16 09:00 04/12/16 04:30 Enoxaparin Sodium (Lovenox Inj) 30 mg Q24H SQ 04/04/16 15:30 04/12/16 16:19 Water (Free Water) VOLUME: 200 ML Q6HR G-TUBE 04/04/16 08:45 04/13/16 12:00 Acetaminophen 650 mg 650 mg Q4H PRN PO FEVER OVER 101.0 04/07/16 01:45 04/07/16 21:31 Potassium Chloride/Dextrose/ Sod Cl 1,000 ml @ 42 mls/hr [id number] IV 04/07/16 07:45 04/13/16 05:58 Piperacillin Sod/ Tazobactam Sod (Zosyn 3.375 Gm Premix) 50 ml @ 100 mls/hr Q6H IV 04/07/16 11:00 04/13/16 10:42 Potassium Chloride (KCl 40 Meq/30 ml Liq) 40 meq Q12HR NG 04/08/16 12:00 04/13/16 10:32 Acetaminophen/ Hydrocodone Bitart (Hycet 325-7.5 Mg Liq) 15 ml Q3HR PRN PO pain1-9 04/08/16 14:45 04/12/16 22:14 Objective Remarks GENERAL: Young man sitting up in bed in nad. SKIN: warm and dry. large mass, right face in bandages. HEAD: Normocephalic. EYES: No injection or drainage. NECK: large tumor with bandages in place. CARDIOVASCULAR: Regular rate and rhythm RESPIRATORY: Breath sounds equal bilaterally. No accessory muscle use. GASTROINTESTINAL: Abdomen soft, non-tender. receiving TF in gastrostomy tube EXTREMITIES: No cyanosis. extremities warm and well perfused. NEUROLOGICAL: alert and oriented. difficulty with speech due to mass. able to move extremities. 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 started XRT . starting weekly carbo/taxol 04/13/16 Plan 1. XRT started yesterday, will start weekly dosed carbo/taxol today. 2. monitor CBC, CMP 3. continue best supportive care with tube feeds, dressing changes 4. continue antibiotics. monitor for fever d/w Dr. Lezama Attending Statement The exam, history, and the medical decision-making described in the above note were completed with the assistance of the mid-level provider. I reviewed and agree with the findings presented. I attest that I had a [id number] encounter with the patient on the same day, and personally performed and documented my assessment and findings in the medical record. no change in exam. both the patient and his brother are thrilled that treatment as started. will continue tx weekly and expect it will take several weeks before the patient has toxicity from tx. He is comfortable and they have great ti that God will help. will do the best we can . Sirisha Cotton Apr 13, 2016 14:19 Yovany Lezama MD Apr 13, 2016 21:30
[2016-04-13] MEDS: ENOXAPARIN SODIUM 30 MG/0.3 ML SYRINGE SQ SCH (16:29)
[2016-04-13] MEDS: ACETAMINOPHEN 325MG/HYDROcodone 7.5MG/15ML UDC PO PRN (16:44)
[2016-04-13] MEDS ORDERED: DEXAMETHASONE INJ 10 MG in SODIUM CHLORIDE 0.9% INJ 50 ML IV ONE (17:00)
[2016-04-13] MEDS ORDERED: diphenhydrAMINE HCL 25 MG CAP PO ONE (17:00)
[2016-04-13] MEDS ORDERED: FAMOTIDINE 20 MG/2 ML VIAL IV PUSH ONE (17:00)
[2016-04-13] MEDS ORDERED: GRANISETRON HCL 1 MG/ML VIAL IV PUSH ONE (17:00)
[2016-04-13] MEDS ORDERED: SODIUM CHLOR 0.9% IV ONE ×2 (18:00→21:00)
[2016-04-13] MEDS ORDERED: PACLITAXEL IV ONE (18:00)
[2016-04-13] MEDS ORDERED: SODIUM CHLOR 0.9% 250 ML INJ 250 ML IV ONE (18:00)
--- NOTE | 2016-04-13 18:52 | HHI.PR ---
Subjective Subjective Notes no issues per patient and brother. started radiation. eating some ice cream Objective Vitals/I&O Vital Signs Date Time Temp Pulse Resp B/P Pulse Ox O2 Delivery O2 Flow Rate FiO2 04/13/16 12:00 97.1 102 18 95/52 100 Labs Laboratory Tests Test 04/13/16 10:05 Sodium Level 136 Potassium Level 3.7 Chloride Level 105 Carbon Dioxide Level 22.1 Anion Gap 9 Blood Urea Nitrogen 9 Creatinine 0.57 Estimat Glomerular Filtration 162 Rate Random Glucose 87 Calcium Level 6.5 Protein Corrected Calcium 6.8 Total Protein 6.6 Date/Time Procedure Status Source Growth 04/09/16 10:55 Aerobic Blood Culture - Preliminary Resulted Blood Peripheral NO GROWTH IN 4 DAYS 04/09/16 10:55 Anaerobic Blood Culture - Preliminary Resulted Blood Peripheral NO GROWTH IN 4 DAYS Narrative Exam facial dressing in place, clean and dry. 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 - Fever may also be necrotic tumor - D/W Dr Lezama and patient's brother. We do not feel transfer to [facility] [place], intubation, or pressors are indicated due to his terminal condition. Supportive care only. Palliative care at bedside. - Palliative radiation and/or surgery will depend on patient's clinical condition. Dr Beaulieu planning to start radiation Sunday. Dr. Lezama will add chemo as well. - labs stable -- will order US to evaluate liver mass for metastatic disease. Juan Oseguera MD Apr 13, 2016 18:52
[2016-04-13 19:55] LABS: AUTOMATED NEUTROPHIL # 16.5 TH/MM3 (1.8-7.7); BASOPHIL # 0.1 TH/MM3 (0-0.2); BASOPHIL % 0.5 % (0.0-2.0); EOSINOPHIL # 0.3 TH/MM3 (0-0.4); EOSINOPHIL % 1.4 % (0.0-4.0); HEMATOCRIT 27.9 % (39.0-51.0); HEMO FLAGS DIFF FINAL; LYMPH % 3.3 % (9.0-44.0); LYMPHOCYTE # 0.6 TH/MM3 (1.0-4.8); MEAN CELL VOLUME 86.8 FL (80.0-100.0); MEAN CORPUSCULAR HEMOGLOBIN 28.9 PG (27.0-34.0); MEAN CORPUSCULAR HGB CONC 33.4 % (32.0-36.0); MONO % 2.6 % (0.0-8.0); NEUT % 92.2 % (16.0-70.0); PLATELET COUNT 458 TH/MM3 (150-450); RED BLOOD COUNT 3.21 MIL/MM3 (4.50-5.90); RED CELL DISTRIBUTION WIDTH 15.5 % (11.6-17.2); WHITE BLOOD COUNT 17.9 TH/MM3 (4.0-11.0)
[2016-04-13] MEDS ORDERED: CARBOPLATIN IV ONE (21:00)
[2016-04-14] VITALS (7 sets, daily range): BP systolic 82–125; BP diastolic 46–71; PULSE 82–97; RESP 16–17; TEMP 95.7–98; O2SAT 97–99
[2016-04-14] MEDS: PIPERACIL-TAZO 3.375 GM PREMIX 50 ML IV SCH ×4 (05:26→22:25)
[2016-04-14] MEDS: FREE WATER G-TUBE SCH ×4 (05:30→22:38)
[2016-04-14 07:27] LABS: BICARBONATE 20.7 MEQ/L (21.0-32.0); POTASSIUM 3.9 MEQ/L (3.5-5.1); TOTAL BILIRUBIN ADULT 0.3 MG/DL (0.2-1.0)
[2016-04-14 07:30] LABS: BASOPHIL % 0.1 % (0.0-2.0); HEMATOCRIT 26.5 % (39.0-51.0); HEMO FLAGS DIFF FINAL; LYMPH % 3.5 % (9.0-44.0); LYMPHOCYTE # 0.5 TH/MM3 (1.0-4.8); MEAN CELL VOLUME 86.7 FL (80.0-100.0); MEAN CORPUSCULAR HEMOGLOBIN 30.1 PG (27.0-34.0); MEAN CORPUSCULAR HGB CONC 34.7 % (32.0-36.0); MONO % 0.8 % (0.0-8.0); NEUT % 95.6 % (16.0-70.0); PLATELET COUNT 464 TH/MM3 (150-450); RED BLOOD COUNT 3.06 MIL/MM3 (4.50-5.90); RED CELL DISTRIBUTION WIDTH 15.8 % (11.6-17.2); WHITE BLOOD COUNT 14.7 TH/MM3 (4.0-11.0)
[2016-04-14 07:33] LABS: CALCIUM-PROTEIN CORRECTED 6.6 MG/DL (8.5-10.1)
[2016-04-14] MEDS: POTASSIUM CL 40 MEQ/30 ML LIQ UDC NG SCH ×2 (08:05→20:01)
[2016-04-14] MEDS: ACETAMINOPHEN 325MG/HYDROcodone 7.5MG/15ML UDC PO PRN ×2 (08:05→20:01)
[2016-04-14] MEDS: SODIUM CHLORIDE 0.9% FLUSH 5 ML FLUSH IVF SCH ×2 (09:00→20:02)
--- NOTE | 2016-04-14 11:17 | PD.ONC.PN ---
Subjective Subjective Remarks Afebrile overnight. Patient tolerated carbo/taxol yesterday. Denies pain. No nausea. Translation service used to speak with patient/brother. Objective Data Date Time Temp Pulse Resp B/P Pulse Ox O2 Delivery O2 Flow Rate FiO2 04/14/16 08:00 97.5 96 16 125/71 99 04/14/16 04:00 96.3 96 17 97/55 99 04/14/16 00:00 95.7 97 17 82/51 97 04/13/16 22:07 96.2 92 19 86/59 97 04/13/16 21:00 98 04/13/16 20:05 96.9 97 19 90/56 99 04/13/16 19:43 96.5 97 20 93/59 99 04/13/16 12:00 97.1 102 18 95/52 100 Result Diagram: 04/14/16 0510 04/14/16 0510 Laboratory Results Laboratory Tests Test 04/13/16 04/14/16 19:05 05:10 White Blood Count 17.9 TH/MM3 14.7 TH/MM3 Red Blood Count 3.21 MIL/MM3 3.06 MIL/MM3 Hemoglobin 9.3 GM/DL 9.2 GM/DL Hematocrit 27.9 % 26.5 % Mean Corpuscular Volume 86.8 FL 86.7 FL Mean Corpuscular Hemoglobin 28.9 PG 30.1 PG Mean Corpuscular Hemoglobin 33.4 % 34.7 % Concent Red Cell Distribution Width 15.5 % 15.8 % Platelet Count 458 TH/MM3 464 TH/MM3 Mean Platelet Volume 6.4 FL 6.7 FL Neutrophils (%) (Auto) 92.2 % 95.6 % Lymphocytes (%) (Auto) 3.3 % 3.5 % Monocytes (%) (Auto) 2.6 % 0.8 % Eosinophils (%) (Auto) 1.4 % 0.0 % Basophils (%) (Auto) 0.5 % 0.1 % Neutrophils # (Auto) 16.5 TH/MM3 14.0 TH/MM3 Lymphocytes # (Auto) 0.6 TH/MM3 0.5 TH/MM3 Monocytes # (Auto) 0.5 TH/MM3 0.1 TH/MM3 Eosinophils # (Auto) 0.3 TH/MM3 0.0 TH/MM3 Basophils # (Auto) 0.1 TH/MM3 0.0 TH/MM3 CBC Comment DIFF FINAL DIFF FINAL Differential Comment Magnesium Level 1.2 MG/DL Sodium Level 138 MEQ/L Potassium Level 3.9 MEQ/L Chloride Level 106 MEQ/L Carbon Dioxide Level 20.7 MEQ/L Anion Gap 11 MEQ/L Blood Urea Nitrogen 13 MG/DL Creatinine 0.59 MG/DL Estimat Glomerular Filtration 155 ML/MIN Rate Random Glucose 130 MG/DL Calcium Level 6.1 MG/DL Protein Corrected Calcium 6.6 MG/DL Total Bilirubin 0.3 MG/DL Aspartate Amino Transf 18 U/L (AST/SGOT) Alanine Aminotransferase 24 U/L (ALT/SGPT) Alkaline Phosphatase 296 U/L Total Protein 6.1 GM/DL Albumin 1.5 GM/DL Administered Medications Medications (Trade) Dose Ordered Sig/Sara Route PRN Reason Start Time Stop Time Status Last Admin Dose Admin Ondansetron HCl (Zofran Inj) 4 mg Q6H PRN IV PUSH NAUSEA 04/02/16 01:45 04/02/16 02:38 IV Flush (NS Flush) 2 ml UNSCH PRN IVF FLUSH AFTER USING IV ACCESS 04/02/16 08:15 04/04/16 02:03 IV Flush (NS Flush) 2 ml BID IVF 04/02/16 09:00 04/13/16 19:57 Diphenhydramine HCl (Benadryl) 25 mg Q6H PRN PO ITCHING 04/02/16 09:00 04/12/16 04:30 Enoxaparin Sodium (Lovenox Inj) 30 mg Q24H SQ 04/04/16 15:30 04/13/16 16:29 Water (Free Water) VOLUME: 200 ML Q6HR G-TUBE 04/04/16 08:45 04/14/16 05:30 Acetaminophen 650 mg 650 mg Q4H PRN PO FEVER OVER 101.0 04/07/16 01:45 04/07/16 21:31 Potassium Chloride/Dextrose/ Sod Cl 1,000 ml @ 42 mls/hr [id number] IV 04/07/16 07:45 04/13/16 05:58 Piperacillin Sod/ Tazobactam Sod (Zosyn 3.375 Gm Premix) 50 ml @ 100 mls/hr Q6H IV 04/07/16 11:00 04/20/16 10:59 04/14/16 05:26 Potassium Chloride (KCl 40 Meq/30 ml Liq) 40 meq Q12HR NG 04/08/16 12:00 04/14/16 08:05 Acetaminophen/ Hydrocodone Bitart (Hycet 325-7.5 Mg Liq) 15 ml Q3HR PRN PO pain1-9 04/08/16 14:45 04/14/16 08:05 Objective Remarks GENERAL: Young man watching TV. severe right facial deformity SKIN: warm and dry. mass, right face, HEAD: Normocephalic. EYES: No injection or drainage. NECK: tumor in right neck/face with bandages over top CARDIOVASCULAR: Regular rate and rhythm RESPIRATORY: Breath sounds equal bilaterally. No accessory muscle use. GASTROINTESTINAL: Abdomen soft, non-tender. G-tube clamped EXTREMITIES: No cyanosis. NEUROLOGICAL: awake and alert. Assessment/Plan Assessment 35y/o male with invasive squamous cell carcinoma. 04/12/16--XRT started 04/13/16:weekly carbo/taxol dose 1 given Plan 1. continue XRT, will give next dose of carbo/taxol next Sunday 2. monitor CBC, CMP 3. continue abx. 4. supportive care Attending Statement agree with above. rosalia lezama md. Sirisha Cotton Apr 14, 2016 11:17 Rosalia Lezama MD Apr 14, 2016 19:57
--- NOTE | 2016-04-14 13:19 | HHI.PR ---
Subjective Remarks Follow-up head and neck cancer. Seen with brother. Patient has no pain. He is tolerating tube feeding and fluid by mouth. He is stooling and voiding. Discussed with RN Objective Vitals Vital Signs Date Time Temp Pulse Resp B/P Pulse Ox O2 Delivery O2 Flow Rate FiO2 04/14/16 12:00 96.3 90 16 86/46 99 04/14/16 08:00 97.5 96 16 125/71 99 04/14/16 04:00 96.3 96 17 97/55 99 04/14/16 00:00 95.7 97 17 82/51 97 04/13/16 22:07 96.2 92 19 86/59 97 04/13/16 21:00 98 04/13/16 20:05 96.9 97 19 90/56 99 04/13/16 19:43 96.5 97 20 93/59 99 I/O 04/13/16 04/13/16 04/13/16 04/14/16 04/14/16 04/14/16 07:00 15:00 23:00 07:00 15:00 23:00 Intake Total 852 ml 597 ml 311 ml 150 ml Output Total 300 ml 300 ml Balance 552 ml 597 ml 11 ml 150 ml Intake Oral 0 ml 150 ml IV Total 302 ml 597 ml 311 ml Tube Feeding 350 ml Tube Irrigant 200 ml Output Urine Total 300 ml 300 ml # Voids 2 1 # Bowel Movements 0 Result Diagram: 04/14/16 0510 04/14/16 0510 Imaging Last Impressions Liver Ultrasound 04/12/16 0000 Signed Impressions: Service Date/Time: Tuesday, April 12, 2016 22:29 - CONCLUSION: 1. Solid indeterminate mass in the left lobe of the liver as well as a tiny cyst. An MRI of the abdomen with without contrast may be helpful for further assessment if felt clinically warranted. The possibility of a metastatic lesion is not excluded. 2. Cholelithiasis. 3. Bilateral pleural effusions are suspected sonographically. Chau Ward MD Chest CT 04/11/16 0000 Signed Impressions: Service Date/Time: Monday, April 11, 2016 14:09 - CONCLUSION: 1. Multiple small scattered noncalcified pulmonary nodules which are nonspecific but are of concern for early metastatic disease. 2. The known large tumor mass in the right side of the face and neck is partially visualized with destructive change involving the right side of the mandible. This extends into the right supraclavicular region. Please see soft tissue neck CT for further details. 3. Low attenuation lesion in the left lobe of the liver again noted. Holland Villegas MD Abdomen/Pelvis CT 04/11/16 0000 Signed Impressions: Service Date/Time: Monday, April 11, 2016 14:09 - CONCLUSION: 1. 1.4 cm low-attenuation lesion left lobe of the liver of concern for a metastasis. There is a smaller more cystic appearing structure in the right lobe. 2. The remainder of the study is unremarkable except for a PEG tube in the stomach. Holland Villegas MD Upper Extremity Ultrasound 04/08/16 0000 Signed Impressions: Service Date/Time: Friday, April 08, 2016 13:04 - CONCLUSION: No thrombus. Deshawn Michele MD Chest X-Ray 04/03/16 0000 Signed Impressions: Service Date/Time: Sunday, April 03, 2016 16:42 - CONCLUSION: Left subclavian venous catheter positioned in the superior vena cava with no pneumothorax Yaakov Montaño MD Neck CT 04/02/16 0000 Signed Impressions: Service Date/Time: Saturday, April 02, 2016 11:54 - CONCLUSION: Very large heterogeneous soft tissue mass along the right side of the face with gross destruction involving most of the right mandible. The mass contains amorphous calcifications and appears to involve the right sternocleidomastoid muscle. The mass appears to extend into the oral cavity with diffuse enlargement of the right tonsillar pillar. Neoplastic disease in the primary consideration. Niall Corrales MD Multiplanar Reconstruction 04/02/16 0000 Signed Impressions: Service Date/Time: Saturday, April 02, 2016 11:54 - CONCLUSION: 3-D reconstructive images demonstrating destruction involving most the right side of the mandible. Niall Corrales MD Head CT 04/02/16 0000 Signed Impressions: Service Date/Time: Saturday, April 02, 2016 11:54 - CONCLUSION: 1. Unremarkable CT scan of the brain 2. Large abnormal soft tissue mass with calcifications along the right side of the face. Niall Corrales MD Objective Remarks GENERAL: in no acute distress HEENT; swollen right face- covered with clean dressing. CARDIOVASCULAR: Regular rate and regular rhythm without murmurs, gallops, or rubs. RESPIRATORY: Clear to auscultation. Breath sounds equal bilaterally. No wheezes , rales, or rhonchi. GASTROINTESTINAL: Abdomen soft, non-tender, nondistended. Normal, active bowel sounds MUSCULOSKELETAL: Extremities without clubbing, cyanosis, or edema. NEURO: Alert & Oriented. Moves all ext x4 Procedures central line placement PEG placement bone biopsy teeth extraction A/P Assessment and Plan - squamous cell carcinoma of the head CT of the face with very large heterogeneous soft tissue mass along the right side of the face with gross destruction involving most of the right mandible. The mass contains amorphous calcifications and appears to involve the right sternocleidomastoid muscle. The mass appears to extend into the oral cavity with diffuse enlargement of the right tonsillar pillar. CT of the chest and abdomen with possible lung/ liver mets. 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 continue with pain control. general and facial surgery following. -sepsis with possible right facial wound and central line as the source-central line discontinued- now fever has resolved one bottle of blood cultures with pseudomonas stutzeri - continue IV Zosyn total 2 weeks end date April 20- repeated blood cultures 2/5 negative so far- -acute kidney injury/ hyponatremia due to dehydration-- improved - will monitor -hypercalcemia- received a dose of aredia-resolved- will continue to monitor. -anemia- s/p PRBC transfusion- will monitor H/H- -hypokalemia/hypomagnesemia;replaced. -severe malnutrition- s/p PEG placement-started on tube feeding - temperer consulted. -DVT prophylaxis with lovenox -DNR status palliative care following. Vish Allen MD Apr 14, 2016 13:19
[2016-04-14] MEDS: ENOXAPARIN SODIUM 30 MG/0.3 ML SYRINGE SQ SCH (17:54)
[2016-04-14] MEDS ORDERED: HYOSCYAMINE 0.5 MG/ML AMP IVP ONE (19:45)
[2016-04-14] MEDS: D5-NS + KCL 20 MEQ INJ 1,000 ML IV SCH (22:26)
[2016-04-15] VITALS (9 sets, daily range): BP systolic 90–120; BP diastolic 50–72; PULSE 93–113; RESP 16–20; TEMP 96.9–98.9; O2SAT 98–99
[2016-04-15] MEDS: PIPERACIL-TAZO 3.375 GM PREMIX 50 ML IV SCH ×4 (05:19→22:48)
[2016-04-15] MEDS: FREE WATER G-TUBE SCH ×4 (05:27→22:48)
[2016-04-15] MEDS: D5-NS + KCL 20 MEQ INJ 1,000 ML IV SCH (06:17)
[2016-04-15 06:33] LABS: AUTOMATED NEUTROPHIL # 18.8 TH/MM3 (1.8-7.7); BASOPHIL # 0.1 TH/MM3 (0-0.2); BASOPHIL % 0.3 % (0.0-2.0); EOSINOPHIL # 0.1 TH/MM3 (0-0.4); EOSINOPHIL % 0.5 % (0.0-4.0); HEMATOCRIT 28.8 % (39.0-51.0); HEMO FLAGS DIFF FINAL; LYMPH % 2.4 % (9.0-44.0); LYMPHOCYTE # 0.5 TH/MM3 (1.0-4.8); MEAN CORPUSCULAR HEMOGLOBIN 29.7 PG (27.0-34.0); MEAN CORPUSCULAR HGB CONC 34.1 % (32.0-36.0); MONO % 4.5 % (0.0-8.0); NEUT % 92.3 % (16.0-70.0); PLATELET COUNT 518 TH/MM3 (150-450); RED BLOOD COUNT 3.31 MIL/MM3 (4.50-5.90); RED CELL DISTRIBUTION WIDTH 15.6 % (11.6-17.2); WHITE BLOOD COUNT 20.3 TH/MM3 (4.0-11.0)
[2016-04-15 07:19] LABS: BICARBONATE 21.8 MEQ/L (21.0-32.0); POTASSIUM 3.6 MEQ/L (3.5-5.1); TOTAL BILIRUBIN ADULT 0.4 MG/DL (0.2-1.0)
[2016-04-15 07:56] LABS: CALCIUM-PROTEIN CORRECTED 6.7 MG/DL (8.5-10.1)
[2016-04-15] MEDS: MAGNESIUM OXIDE 400 MG TAB GT SCH ×2 (09:00→19:42)
[2016-04-15] MEDS ORDERED: MAGNESIUM SULFATE 1 GM PREMIX 100 ML IV ONE ×2 (09:00→13:00)
[2016-04-15] MEDS: SODIUM CHLORIDE 0.9% FLUSH 5 ML FLUSH IVF SCH ×2 (09:00→19:55)
[2016-04-15] MEDS: POTASSIUM CL 40 MEQ/30 ML LIQ UDC NG SCH ×2 (09:24→19:42)
--- NOTE | 2016-04-15 12:01 | HHI.PR ---
Subjective Remarks Follow-up head and neck cancer. Complaining of constipation was seen with brother discussed with RN Objective Vitals Vital Signs Date Time Temp Pulse Resp B/P Pulse Ox O2 Delivery O2 Flow Rate FiO2 04/15/16 04:00 97.6 110 16 103/61 99 04/15/16 00:23 98.9 93 16 90/50 99 04/14/16 21:46 20 04/14/16 21:00 93 04/14/16 20:00 98.0 95 16 102/59 99 04/14/16 16:40 97.2 82 16 100/55 99 I/O 04/14/16 04/14/16 04/14/16 04/15/16 04/15/16 04/15/16 07:00 15:00 23:00 07:00 15:00 23:00 Intake Total 311 ml 150 ml 465 ml 312 ml Output Total 300 ml Balance 11 ml 150 ml 465 ml 312 ml Intake Oral 150 ml 0 ml IV Total 311 ml 465 ml 312 ml Output Urine Total 300 ml # Voids 1 3 # Bowel Movements 0 0 Result Diagram: 04/15/16 0510 04/15/16 0510 Imaging Last Impressions Liver Ultrasound 04/12/16 0000 Signed Impressions: Service Date/Time: Tuesday, April 12, 2016 22:29 - CONCLUSION: 1. Solid indeterminate mass in the left lobe of the liver as well as a tiny cyst. An MRI of the abdomen with without contrast may be helpful for further assessment if felt clinically warranted. The possibility of a metastatic lesion is not excluded. 2. Cholelithiasis. 3. Bilateral pleural effusions are suspected sonographically. Chau Ward MD Chest CT 04/11/16 0000 Signed Impressions: Service Date/Time: Monday, April 11, 2016 14:09 - CONCLUSION: 1. Multiple small scattered noncalcified pulmonary nodules which are nonspecific but are of concern for early metastatic disease. 2. The known large tumor mass in the right side of the face and neck is partially visualized with destructive change involving the right side of the mandible. This extends into the right supraclavicular region. Please see soft tissue neck CT for further details. 3. Low attenuation lesion in the left lobe of the liver again noted. Holland Villegas MD Abdomen/Pelvis CT 04/11/16 0000 Signed Impressions: Service Date/Time: Monday, April 11, 2016 14:09 - CONCLUSION: 1. 1.4 cm low-attenuation lesion left lobe of the liver of concern for a metastasis. There is a smaller more cystic appearing structure in the right lobe. 2. The remainder of the study is unremarkable except for a PEG tube in the stomach. Holland Villegas MD Upper Extremity Ultrasound 04/08/16 0000 Signed Impressions: Service Date/Time: Friday, April 08, 2016 13:04 - CONCLUSION: No thrombus. Deshawn Michele MD Chest X-Ray 04/03/16 0000 Signed Impressions: Service Date/Time: Sunday, April 03, 2016 16:42 - CONCLUSION: Left subclavian venous catheter positioned in the superior vena cava with no pneumothorax Yaakov Montaño MD Neck CT 04/02/16 0000 Signed Impressions: Service Date/Time: Saturday, April 02, 2016 11:54 - CONCLUSION: Very large heterogeneous soft tissue mass along the right side of the face with gross destruction involving most of the right mandible. The mass contains amorphous calcifications and appears to involve the right sternocleidomastoid muscle. The mass appears to extend into the oral cavity with diffuse enlargement of the right tonsillar pillar. Neoplastic disease in the primary consideration. Niall Corrales MD Multiplanar Reconstruction 04/02/16 0000 Signed Impressions: Service Date/Time: Saturday, April 02, 2016 11:54 - CONCLUSION: 3-D reconstructive images demonstrating destruction involving most the right side of the mandible. Niall Corrales MD Head CT 04/02/16 0000 Signed Impressions: Service Date/Time: Saturday, April 02, 2016 11:54 - CONCLUSION: 1. Unremarkable CT scan of the brain 2. Large abnormal soft tissue mass with calcifications along the right side of the face. Niall Corrales MD Objective Remarks GENERAL: in no acute distress HEENT; swollen right face- covered with clean dressing. CARDIOVASCULAR: Regular rate and regular rhythm without murmurs, gallops, or rubs. RESPIRATORY: Clear to auscultation. Breath sounds equal bilaterally. No wheezes , rales, or rhonchi. GASTROINTESTINAL: Abdomen soft, non-tender, nondistended. Normal, active bowel sounds MUSCULOSKELETAL: Extremities without clubbing, cyanosis, or edema. NEURO: Alert & Oriented. Moves all ext x4 Procedures central line placement PEG placement bone biopsy teeth extraction A/P Assessment and Plan - squamous cell carcinoma of the head CT of the face with very large heterogeneous soft tissue mass along the right side of the face with gross destruction involving most of the right mandible. The mass contains amorphous calcifications and appears to involve the right sternocleidomastoid muscle. The mass appears to extend into the oral cavity with diffuse enlargement of the right tonsillar pillar. CT of the chest and abdomen with possible lung/ liver mets. 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 continue with pain control. general and facial surgery following. -sepsis with possible right facial wound and central line as the source-central line discontinued- now fever has resolved one bottle of blood cultures with pseudomonas stutzeri - continue IV Zosyn total 2 weeks end date April 20- repeated blood cultures 2/5 negative so far- -acute kidney injury/ hyponatremia due to dehydration-- improved - will monitor -hypercalcemia- received a dose of aredia-resolved- will continue to monitor. -anemia- s/p PRBC transfusion- will monitor H/H- -hypokalemia/hypomagnesemia;replaced. -severe malnutrition- s/p PEG placement-started on tube feeding - ice cream van vendor consulted. -Leukocytosis status post the rates. We'll monitor -Constipation start Clara-Colace -DVT prophylaxis with lovenox -DNR status palliative care following. Vish Allen MD Apr 15, 2016 12:01
[2016-04-15] MEDS ORDERED: DOCUSATE SODIUM 100 MG/10 ML UDC GT PRN (12:15)
[2016-04-15] MEDS ORDERED: BISACODYL 10 MG SUPP PR PRN (12:15)
[2016-04-15] MEDS ORDERED: MAGNESIUM HYDROXIDE SUSP 30 ML CUP GT PRN (12:15)
[2016-04-15] MEDS ORDERED: LACTULOSE SYRUP 20 GM/30 ML CUP G-TUBE PRN (12:15)
[2016-04-15] MEDS: ENOXAPARIN SODIUM 30 MG/0.3 ML SYRINGE SQ SCH (15:30)
[2016-04-15] MEDS: DOCUSATE SODIUM 50 MG/SENNA 8.6 MG TAB G-TUBE SCH (19:42)
[2016-04-15] MEDS: ACETAMINOPHEN 325MG/HYDROcodone 7.5MG/15ML UDC PO PRN (20:14)
[2016-04-16 04:00] VITALS: BP 102/59; PULSE 98; RESP 18; TEMP 97.6; O2SAT 98
[2016-04-16] MEDS: PIPERACIL-TAZO 3.375 GM PREMIX 50 ML IV SCH ×4 (04:38→22:57)
[2016-04-16] MEDS: FREE WATER G-TUBE SCH ×3 (06:00→16:57)
[2016-04-16] MEDS: D5-NS + KCL 20 MEQ INJ 1,000 ML IV SCH (06:06)
[2016-04-16 07:50] VITALS: BP 113/76; PULSE 124; RESP 20; TEMP 99.3; O2SAT 98
[2016-04-16 08:02] LABS: AUTOMATED NEUTROPHIL # 18.7 TH/MM3 (1.8-7.7); BASOPHIL # 0.1 TH/MM3 (0-0.2); BASOPHIL % 0.3 % (0.0-2.0); EOSINOPHIL # 0.2 TH/MM3 (0-0.4); EOSINOPHIL % 0.8 % (0.0-4.0); HEMATOCRIT 27.8 % (39.0-51.0); HEMO FLAGS DIFF FINAL; LYMPH % 2.7 % (9.0-44.0); LYMPHOCYTE # 0.5 TH/MM3 (1.0-4.8); MEAN CELL VOLUME 85.7 FL (80.0-100.0); MEAN CORPUSCULAR HGB CONC 33.9 % (32.0-36.0); MONO % 3.8 % (0.0-8.0); NEUT % 92.4 % (16.0-70.0); PLATELET COUNT 527 TH/MM3 (150-450); RED BLOOD COUNT 3.24 MIL/MM3 (4.50-5.90); RED CELL DISTRIBUTION WIDTH 15.5 % (11.6-17.2); WHITE BLOOD COUNT 20.3 TH/MM3 (4.0-11.0)
[2016-04-16 08:20] LABS: BICARBONATE 24.4 MEQ/L (21.0-32.0); CALCIUM-PROTEIN CORRECTED 7.6 MG/DL (8.5-10.1); POTASSIUM 3.3 MEQ/L (3.5-5.1); TOTAL BILIRUBIN ADULT 0.6 MG/DL (0.2-1.0)
[2016-04-16] MEDS: MAGNESIUM OXIDE 400 MG TAB GT SCH ×2 (08:22→21:35)
[2016-04-16] MEDS: POTASSIUM CL 40 MEQ/30 ML LIQ UDC NG SCH ×2 (08:22→21:34)
[2016-04-16] MEDS: DOCUSATE SODIUM 50 MG/SENNA 8.6 MG TAB G-TUBE SCH ×2 (08:22→21:35)
[2016-04-16] MEDS: SODIUM CHLORIDE 0.9% FLUSH 5 ML FLUSH IVF SCH ×2 (08:23→22:58)
[2016-04-16] MEDS ORDERED: POTASSIUM CL 40 MEQ/30 ML LIQ UDC G-TUBE ONE (09:00)
[2016-04-16] MEDS: METOCLOPRAMIDE HCL SYRUP 10 MG/10 ML UDC G-TUBE SCH ×3 (11:00→21:32)
[2016-04-16 11:45] VITALS: BP 119/71; PULSE 119; RESP 20; TEMP 99.5; O2SAT 98
[2016-04-16] MEDS: ACETAMINOPHEN 325MG/HYDROcodone 7.5MG/15ML UDC PO PRN ×2 (12:58→21:34)
--- NOTE | 2016-04-16 14:44 | HHI.PR ---
Subjective Remarks Follow-up head and neck cancer. Discussed with RN patient complained of abdominal pain. He is not tolerating tube feedings with residuals over 70 cc. I was called earlier regarding this and started Reglan. At this time, patient is sleeping, was requested by his family not to arouse him. Discussed with RN Objective Vitals Vital Signs Date Time Temp Pulse Resp B/P Pulse Ox O2 Delivery O2 Flow Rate FiO2 04/16/16 07:50 99.3 124 20 113/76 98 04/16/16 04:00 97.6 98 18 102/59 98 04/15/16 23:00 98.8 102 20 100/62 98 04/15/16 22:05 20 04/15/16 21:00 104 04/15/16 20:09 98.0 113 19 120/72 99 04/15/16 17:24 107 04/15/16 15:50 96.9 104 20 102/59 98 I/O 04/15/16 04/15/16 04/15/16 04/16/16 04/16/16 04/16/16 07:00 15:00 23:00 07:00 15:00 23:00 Intake Total 312 ml 60 ml 70 ml Output Total 450 ml Balance 312 ml -390 ml 70 ml Intake Oral 0 ml 60 ml IV Total 312 ml 70 ml Output Urine Total 450 ml # Voids 3 1 1 # Bowel Movements 0 1 0 Result Diagram: 04/16/16 0600 04/16/16 0600 Imaging Last Impressions Liver Ultrasound 04/12/16 0000 Signed Impressions: Service Date/Time: Tuesday, April 12, 2016 22:29 - CONCLUSION: 1. Solid indeterminate mass in the left lobe of the liver as well as a tiny cyst. An MRI of the abdomen with without contrast may be helpful for further assessment if felt clinically warranted. The possibility of a metastatic lesion is not excluded. 2. Cholelithiasis. 3. Bilateral pleural effusions are suspected sonographically. Chau Ward MD Chest CT 04/11/16 0000 Signed Impressions: Service Date/Time: Monday, April 11, 2016 14:09 - CONCLUSION: 1. Multiple small scattered noncalcified pulmonary nodules which are nonspecific but are of concern for early metastatic disease. 2. The known large tumor mass in the right side of the face and neck is partially visualized with destructive change involving the right side of the mandible. This extends into the right supraclavicular region. Please see soft tissue neck CT for further details. 3. Low attenuation lesion in the left lobe of the liver again noted. Holland Villegas MD Abdomen/Pelvis CT 04/11/16 Signed Impressions: Service Date/Time: Monday, April 11, 2016 14:09 - CONCLUSION: 1. 1.4 cm low-attenuation lesion left lobe of the liver of concern for a metastasis. There is a smaller more cystic appearing structure in the right lobe. 2. The remainder of the study is unremarkable except for a PEG tube in the stomach. Holland Villegas MD Upper Extremity Ultrasound 04/08/16 Signed Impressions: Service Date/Time: Friday, April 08, 2016 13:04 - CONCLUSION: No thrombus. Deshawn Michele MD Chest X-Ray 04/03/16 Signed Impressions: Service Date/Time: Sunday, April 03, 2016 16:42 - CONCLUSION: Left subclavian venous catheter positioned in the superior vena cava with no pneumothorax Yaakov Montaño MD Neck CT 04/02/16 Signed Impressions: Service Date/Time: Saturday, April 02, 2016 11:54 - CONCLUSION: Very large heterogeneous soft tissue mass along the right side of the face with gross destruction involving most of the right mandible. The mass contains amorphous calcifications and appears to involve the right sternocleidomastoid muscle. The mass appears to extend into the oral cavity with diffuse enlargement of the right tonsillar pillar. Neoplastic disease in the primary consideration. Niall Corrales MD Multiplanar Reconstruction 04/02/16 Signed Impressions: Service Date/Time: Saturday, April 02, 2016 11:54 - CONCLUSION: 3-D reconstructive images demonstrating destruction involving most the right side of the mandible. Niall Corrales MD Head CT 04/02/16 0000 Signed Impressions: Service Date/Time: Saturday, April 02, 2016 11:54 - CONCLUSION: 1. Unremarkable CT scan of the brain 2. Large abnormal soft tissue mass with calcifications along the right side of the face. Niall Corrales MD Objective Remarks GENERAL: in no acute distress HEENT; swollen right face- covered with clean dressing. CARDIOVASCULAR: Regular rate and regular rhythm without murmurs, gallops, or rubs. RESPIRATORY: Clear to auscultation. Breath sounds equal bilaterally. No wheezes , rales, or rhonchi. GASTROINTESTINAL: Abdomen soft, non-tender, nondistended. Normal, active bowel sounds MUSCULOSKELETAL: Extremities without clubbing, cyanosis, or edema. NEURO: Asleep Procedures central line placement PEG placement bone biopsy teeth extraction A/P Assessment and Plan - squamous cell carcinoma of the head CT of the face with very large heterogeneous soft tissue mass along the right side of the face with gross destruction involving most of the right mandible. The mass contains amorphous calcifications and appears to involve the right sternocleidomastoid muscle. The mass appears to extend into the oral cavity with diffuse enlargement of the right tonsillar pillar. CT of the chest and abdomen with possible lung/ liver mets. 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 continue with pain control. general and facial surgery following. -sepsis with possible right facial wound and central line as the source-central line discontinued- now fever has resolved one bottle of blood cultures with pseudomonas stutzeri - continue IV Zosyn total 2 weeks end date April 20- repeated blood cultures 2/5 negative so far- -acute kidney injury/ hyponatremia due to dehydration-- improved - will monitor -hypercalcemia- received a dose of aredia-resolved- will continue to monitor. -anemia- s/p PRBC transfusion- will monitor H/H- -hypokalemia/hypomagnesemia;replaced. -severe malnutrition- s/p PEG placement-started on tube feeding - comedian consulted. Patient with intolerance likely contributed by constipation. Start Reglan and monitor response -Leukocytosis status post steroids. We'll monitor -Constipation. Now stooling continue Clara-Colace -DVT prophylaxis with lovenox -DNR status palliative care following. Discharge Planning No payor source for chemotherapy and radiation treatment. Per skilled nursing case manager, patient to remain in-house to complete treatment Vish Allen MD Apr 16, 2016 14:44
[2016-04-16] MEDS ORDERED: MAGNESIUM SULFATE 1 GM PREMIX 100 ML IV ONE (14:45)
[2016-04-16 15:50] VITALS: BP 111/70; PULSE 108; RESP 20; TEMP 97.8; O2SAT 99
[2016-04-16] MEDS: ENOXAPARIN SODIUM 30 MG/0.3 ML SYRINGE SQ SCH (16:56)
[2016-04-16 20:00] VITALS: BP 103/58; PULSE 117; RESP 18; TEMP 101.9; O2SAT 99
[2016-04-16] MEDS: ACETAMINOPHEN 325 MG TAB PO PRN (21:35)
[2016-04-17] VITALS (8 sets, daily range): BP systolic 98–158; BP diastolic 59–83; PULSE 78–133; RESP 17–22; TEMP 96.4–100.9; O2SAT 96–100
[2016-04-17] MEDS: ACETAMINOPHEN 325MG/HYDROcodone 7.5MG/15ML UDC PO PRN ×2 (00:38→14:57)
[2016-04-17] MEDS: SODIUM CHLORIDE 0.9% FLUSH 5 ML FLUSH IVF PRN (05:08)
[2016-04-17] MEDS: PIPERACIL-TAZO 3.375 GM PREMIX 50 ML IV SCH ×4 (05:08→23:56)
[2016-04-17] MEDS: METOCLOPRAMIDE HCL SYRUP 10 MG/10 ML UDC G-TUBE SCH ×4 (05:08→21:23)
[2016-04-17] MEDS: FREE WATER G-TUBE SCH ×5 (06:00→23:56)
[2016-04-17 06:50] LABS: INTERNATIONAL NORMALIZED RATIO 1.3 RATIO; PROTHROMBIN TIME - PATIENT 14.2 SEC (9.8-11.6)
[2016-04-17 07:32] LABS: ALKALINE PHOSPHATASE 243 U/L (45-117); ALT (GPT) 23 U/L (12-78); ANION GAP 10 MEQ/L (5-15); AST (GOT) 19 U/L (15-37); BICARBONATE 23.9 MEQ/L (21.0-32.0); BLOOD UREA NITROGEN 12 MG/DL (7-18); CHLORIDE 101 MEQ/L (98-107); GLOMERULAR FILTRATION RATE 184 ML/MIN (>89); MAGNESIUM 1.1 MG/DL (1.5-2.5); POTASSIUM 3.5 MEQ/L (3.5-5.1); SODIUM (NA) 135 MEQ/L (136-145); TOTAL BILIRUBIN ADULT 0.5 MG/DL (0.2-1.0)
[2016-04-17 08:55] LABS: AUTOMATED NEUTROPHIL # 18.3 TH/MM3 (1.8-7.7); BASOPHIL % 0.2 % (0.0-2.0); EOSINOPHIL # 0.2 TH/MM3 (0-0.4); EOSINOPHIL % 0.8 % (0.0-4.0); HEMATOCRIT 28.3 % (39.0-51.0); LYMPH % 2.7 % (9.0-44.0); LYMPHOCYTE # 0.5 TH/MM3 (1.0-4.8); MEAN CELL VOLUME 86.9 FL (80.0-100.0); MEAN CORPUSCULAR HEMOGLOBIN 29.2 PG (27.0-34.0); MEAN CORPUSCULAR HGB CONC 33.6 % (32.0-36.0); MONO % 4.3 % (0.0-8.0); PLATELET COUNT 559 TH/MM3 (150-450); RED BLOOD COUNT 3.26 MIL/MM3 (4.50-5.90); RED CELL DISTRIBUTION WIDTH 15.8 % (11.6-17.2); WHITE BLOOD COUNT 19.9 TH/MM3 (4.0-11.0)
[2016-04-17] MEDS: MAGNESIUM OXIDE 400 MG TAB GT SCH ×2 (08:57→21:24)
[2016-04-17] MEDS: POTASSIUM CL 40 MEQ/30 ML LIQ UDC NG SCH ×2 (08:57→21:24)
[2016-04-17] MEDS: DOCUSATE SODIUM 50 MG/SENNA 8.6 MG TAB G-TUBE SCH ×2 (08:57→21:24)
[2016-04-17] MEDS: SODIUM CHLORIDE 0.9% FLUSH 5 ML FLUSH IVF SCH ×2 (08:57→21:24)
[2016-04-17 08:58] LABS: HEMO FLAGS AUTO DIFF
[2016-04-17 09:45] LABS: BANDS 3 % (0-6); NEUTROPHIL # MANUAL DIFF 18.5 TH/MM3 (1.8-7.7); POLYS (SEG NEUTROPHILS) 90 % (16-70); WBC DIFF SAMPLE 100
[2016-04-17 09:46] LABS: PLATELET ESTIMATE SMEAR HIGH (NORMAL); PLATELET MORPHOLOGY NORMAL (NORMAL); SCAN/DIFF FINAL DIFF MANUAL
--- NOTE | 2016-04-17 09:50 | HHI.PR ---
Subjective Subjective Notes reports no problems. denies any pain. bowels working. Objective Vitals/I&O Vital Signs Date Time Temp Pulse Resp B/P Pulse Ox O2 Delivery O2 Flow Rate FiO2 04/17/16 08:00 99.6 122 18 98/66 97 Labs Laboratory Tests Test 04/17/16 04/17/16 05:14 08:20 Prothrombin Time 14.2 Prothromb Time International 1.3 Ratio Sodium Level 135 Potassium Level 3.5 Chloride Level 101 Carbon Dioxide Level 23.9 Anion Gap 10 Blood Urea Nitrogen 12 Creatinine 0.51 Estimat Glomerular Filtration 184 Rate Random Glucose 91 Calcium Level 8.0 Phosphorus Level 1.3 Magnesium Level 1.1 Total Bilirubin 0.5 Aspartate Amino Transf 19 (AST/SGOT) Alanine Aminotransferase 23 (ALT/SGPT) Alkaline Phosphatase 243 Total Protein 6.0 Albumin 1.6 Triglycerides Level 94 White Blood Count 19.9 Red Blood Count 3.26 Hemoglobin 9.5 Hematocrit 28.3 Mean Corpuscular Volume 86.9 Mean Corpuscular Hemoglobin 29.2 Mean Corpuscular Hemoglobin 33.6 Concent Red Cell Distribution Width 15.8 Platelet Count 559 Mean Platelet Volume 6.5 Neutrophils (%) (Auto) 92.0 Lymphocytes (%) (Auto) 2.7 Monocytes (%) (Auto) 4.3 Eosinophils (%) (Auto) 0.8 Basophils (%) (Auto) 0.2 Neutrophils # (Auto) 18.3 Lymphocytes # (Auto) 0.5 Monocytes # (Auto) 0.9 Eosinophils # (Auto) 0.2 Basophils # (Auto) 0.0 CBC Comment AUTO DIFF Differential Total Cells 100 Counted Neutrophils % (Manual) 90 Band Neutrophils % 3 Monocytes % 7 Neutrophils # (Manual) 18.5 Differential Comment FINAL DIFF MANUAL Platelet Estimate HIGH Platelet Morphology Comment NORMAL Red Cell Morphology Comment NORMAL Abdomen: Non-distended, Non-tender, BS normal Narrative Exam facial dressing in place, clean and dry. 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 - D/W Dr Lezama and patient's brother. We do not feel transfer to [facility], intubation, or pressors are indicated due to his terminal condition. Supportive care only. Palliative care at bedside. - Palliative radiation and/or surgery will depend on patient's clinical condition. - labs stable -- Continue chemo and radiation for now. Will re-evaluate surgical options after. Juan Oseguera MD Apr 17, 2016 09:50
[2016-04-17] MEDS ORDERED: PADIMATE (CHAPSTICK) 4.5 GM TUBE TOP PRN (10:00)
--- NOTE | 2016-04-17 13:40 | HHI.PR ---
Subjective Remarks Follow-up head and neck cancer. MAXIMUM TEMPERATURE 101. Complains of productive cough of slightly yellow phlegm. Denies shortness of breath. No nausea, abdominal pain, diarrhea and UTI symptoms. She did better. Discussed with RN Objective Vitals Vital Signs Date Time Temp Pulse Resp B/P Pulse Ox O2 Delivery O2 Flow Rate FiO2 04/17/16 12:00 99.6 133 20 113/60 98 04/17/16 10:30 98.5 90 18 158/83 96 04/17/16 08:00 99.6 122 18 98/66 97 04/17/16 04:00 96.4 78 18 99/59 99 04/17/16 01:38 18 04/17/16 00:00 96.4 102 17 102/64 98 04/16/16 22:34 18 04/16/16 20:00 117 04/16/16 20:00 101.9 117 18 103/58 99 04/16/16 15:50 97.8 108 20 111/70 99 I/O 04/16/16 04/16/16 04/16/16 04/17/16 04/17/16 04/17/16 07:00 15:00 23:00 07:00 15:00 23:00 Intake Total 70 ml 60 ml 0 ml Output Total 450 ml 500 ml Balance 70 ml 60 ml -450 ml -500 ml Intake Oral 60 ml 0 ml IV Total 70 ml Output Urine Total 450 ml 500 ml # Voids 1 5 1 1 # Bowel Movements 0 0 0 0 Result Diagram: 04/17/16 0820 04/17/16 0514 Imaging Last Impressions Liver Ultrasound 04/12/16 0000 Signed Impressions: Service Date/Time: Tuesday, April 12, 2016 22:29 - CONCLUSION: 1. Solid indeterminate mass in the left lobe of the liver as well as a tiny cyst. An MRI of the abdomen with without contrast may be helpful for further assessment if felt clinically warranted. The possibility of a metastatic lesion is not excluded. 2. Cholelithiasis. 3. Bilateral pleural effusions are suspected sonographically. Chau Ward MD Chest CT 04/11/16 0000 Signed Impressions: Service Date/Time: Monday, April 11, 2016 14:09 - CONCLUSION: 1. Multiple small scattered noncalcified pulmonary nodules which are nonspecific but are of concern for early metastatic disease. 2. The known large tumor mass in the right side of the face and neck is partially visualized with destructive change involving the right side of the mandible. This extends into the right supraclavicular region. Please see soft tissue neck CT for further details. 3. Low attenuation lesion in the left lobe of the liver again noted. Holland Villegas MD Abdomen/Pelvis CT 04/11/16 0000 Signed Impressions: Service Date/Time: Monday, April 11, 2016 14:09 - CONCLUSION: 1. 1.4 cm low-attenuation lesion left lobe of the liver of concern for a metastasis. There is a smaller more cystic appearing structure in the right lobe. 2. The remainder of the study is unremarkable except for a PEG tube in the stomach. Holland Villegas MD Upper Extremity Ultrasound 04/08/16 0000 Signed Impressions: Service Date/Time: Friday, April 08, 2016 13:04 - CONCLUSION: No thrombus. Deshawn Michele MD Chest X-Ray 04/03/16 0000 Signed Impressions: Service Date/Time: Sunday, April 03, 2016 16:42 - CONCLUSION: Left subclavian venous catheter positioned in the superior vena cava with no pneumothorax Yaakov Montaño MD Neck CT 04/02/16 0000 Signed Impressions: Service Date/Time: Saturday, April 02, 2016 11:54 - CONCLUSION: Very large heterogeneous soft tissue mass along the right side of the face with gross destruction involving most of the right mandible. The mass contains amorphous calcifications and appears to involve the right sternocleidomastoid muscle. The mass appears to extend into the oral cavity with diffuse enlargement of the right tonsillar pillar. Neoplastic disease in the primary consideration. Niall Corrales MD Multiplanar Reconstruction 04/02/16 0000 Signed Impressions: Service Date/Time: Saturday, April 02, 2016 11:54 - CONCLUSION: 3-D reconstructive images demonstrating destruction involving most the right side of the mandible. Niall Corrales MD Head CT 04/02/16 0000 Signed Impressions: Service Date/Time: Saturday, April 02, 2016 11:54 - CONCLUSION: 1. Unremarkable CT scan of the brain 2. Large abnormal soft tissue mass with calcifications along the right side of the face. Niall Corrales MD Objective Remarks GENERAL: in no acute distress HEENT; swollen right face- covered with clean dressing. CARDIOVASCULAR: Regular rate and regular rhythm without murmurs, gallops, or rubs. RESPIRATORY: Clear to auscultation. Breath sounds equal bilaterally. No wheezes , rales, or rhonchi. GASTROINTESTINAL: Abdomen soft, non-tender, nondistended. Normal, active bowel sounds MUSCULOSKELETAL: Extremities without clubbing, cyanosis, or edema. NEURO: Awake and alert. Moving all extremities. Nonfocal Procedures central line placement PEG placement bone biopsy teeth extraction A/P Assessment and Plan - squamous cell carcinoma of the head CT of the face with very large heterogeneous soft tissue mass along the right side of the face with gross destruction involving most of the right mandible. The mass contains amorphous calcifications and appears to involve the right sternocleidomastoid muscle. The mass appears to extend into the oral cavity with diffuse enlargement of the right tonsillar pillar. CT of the chest and abdomen with possible lung/ liver mets. 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 continue with pain control. general and facial surgery following. -sepsis with possible right facial wound and central line as the source-central line discontinued- fever has recurred one bottle of blood cultures with pseudomonas stutzeri - continue IV Zosyn total 2 weeks end date April 20- repeated blood cultures 2/5 negative so far- will repeat bcx again with next febrile episode. check CXR -acute kidney injury/ hyponatremia due to dehydration-- improved - will monitor -hypercalcemia- received a dose of aredia-resolved- will continue to monitor. -anemia- s/p PRBC transfusion- will monitor H/H- -hypokalemia/hypomagnesemia;replaced. Give extra potassium 10 mEq and increase magnesium oxide to 800 mg twice a day and 2 g of IV magnesium today. Repeat BMP and magnesium in the morning. -severe malnutrition- s/p PEG placement-started on tube feeding - deoiling machine operator consulted. Patient with intolerance likely contributed by constipation. Continue Reglan and monitor response -Leukocytosis status post steroids. We'll monitor -Constipation. Now stooling continue Clara-Colace -DVT prophylaxis with lovenox -DNR status palliative care following. Discharge Planning No payor source for chemotherapy and radiation treatment. Per hospice case manager, patient to remain in-house to complete treatment Abando,Raphael MD Apr 17, 2016 13:40
[2016-04-17] MEDS ORDERED: POTASSIUM CL 40 MEQ/30 ML LIQ UDC GT ONE (14:00)
[2016-04-17] MEDS: MAGNESIUM SULFATE 1 GM PREMIX 100 ML IV SCH ×2 (14:47→18:34)
--- NOTE | 2016-04-17 14:55 | RADRPT ---
EXAM DATE/TIME: 04/17/2016 14:18 [facility] COMPARISON: CHEST SINGLE AP, April 03, 2016, 16:42. INDICATIONS : Cough. MEDICAL HISTORY : None. SURGICAL HISTORY : None. ENCOUNTER: Initial ACUITY: 1 day PAIN SCORE: 0/10 LOCATION: Bilateral chest FINDINGS: A single view of the chest demonstrates the lungs to be symmetrically aerated without evidence of mas s, infiltrate or effusion. The cardiomediastinal contours are unremarkable. Osseous structures are intact. CONCLUSION: No acute disease. There is no evidence of pneumonia. Holland Villegas MD on April 17, 2016 at 14:51 Board Certified Radiologist. This report was verified electronically.
[2016-04-17] MEDS: ENOXAPARIN SODIUM 30 MG/0.3 ML SYRINGE SQ SCH (14:57)
[2016-04-17] MEDS ORDERED: MAGNESIUM SULFATE 1 GM PREMIX 100 ML IV SCH (18:30)
[2016-04-18] VITALS (9 sets, daily range): BP systolic 99–118; BP diastolic 54–77; PULSE 103–127; RESP 16–18; TEMP 98–101.2; O2SAT 97–99
[2016-04-18] MEDS: FREE WATER G-TUBE SCH ×3 (03:48→16:56)
[2016-04-18] MEDS: ACETAMINOPHEN 325MG/HYDROcodone 7.5MG/15ML UDC PO PRN ×2 (03:51→22:04)
[2016-04-18] MEDS: PIPERACIL-TAZO 3.375 GM PREMIX 50 ML IV SCH ×4 (05:25→21:51)
[2016-04-18] MEDS: METOCLOPRAMIDE HCL SYRUP 10 MG/10 ML UDC G-TUBE SCH ×4 (05:25→21:48)
[2016-04-18] MEDS: ACETAMINOPHEN 325 MG TAB PO PRN ×2 (06:24→21:49)
[2016-04-18 06:55] LABS: AUTOMATED NEUTROPHIL # 13.2 TH/MM3 (1.8-7.7); BASOPHIL % 0.2 % (0.0-2.0); EOSINOPHIL # 0.1 TH/MM3 (0-0.4); HEMATOCRIT 24.8 % (39.0-51.0); HEMO FLAGS DIFF FINAL; LYMPH % 3.1 % (9.0-44.0); LYMPHOCYTE # 0.5 TH/MM3 (1.0-4.8); MEAN CELL VOLUME 86.1 FL (80.0-100.0); MEAN CORPUSCULAR HGB CONC 34.8 % (32.0-36.0); MONO % 6.2 % (0.0-8.0); NEUT % 89.5 % (16.0-70.0); PLATELET COUNT 573 TH/MM3 (150-450); RED BLOOD COUNT 2.89 MIL/MM3 (4.50-5.90); RED CELL DISTRIBUTION WIDTH 15.1 % (11.6-17.2); WHITE BLOOD COUNT 14.8 TH/MM3 (4.0-11.0)
[2016-04-18 07:25] LABS: MAGNESIUM 1.6 MG/DL (1.5-2.5); POTASSIUM 3.1 MEQ/L (3.5-5.1)
[2016-04-18] MEDS ORDERED: POTASSIUM CL 40 MEQ/30 ML LIQ UDC PO ONE (08:00)
[2016-04-18] MEDS: SODIUM CHLORIDE 0.9% FLUSH 5 ML FLUSH IVF SCH ×2 (09:00→21:50)
[2016-04-18] MEDS: DOCUSATE SODIUM 50 MG/SENNA 8.6 MG TAB G-TUBE SCH ×2 (09:09→21:50)
[2016-04-18] MEDS: MAGNESIUM OXIDE 400 MG TAB GT SCH ×2 (09:10→21:48)
--- NOTE | 2016-04-18 10:20 | HHI.PR ---
Subjective Subjective Notes Using translation service--- patient had fever overnight but no associated symptoms; Brother at bedside Objective Vitals/I&O Vital Signs Date Time Temp Pulse Resp B/P Pulse Ox O2 Delivery O2 Flow Rate FiO2 04/18/16 08:00 99.8 106 16 103/60 99 Labs Laboratory Tests Test 04/18/16 06:00 White Blood Count 14.8 Red Blood Count 2.89 Hemoglobin 8.6 Hematocrit 24.8 Mean Corpuscular Volume 86.1 Mean Corpuscular Hemoglobin 30.0 Mean Corpuscular Hemoglobin 34.8 Concent Red Cell Distribution Width 15.1 Platelet Count 573 Mean Platelet Volume 6.5 Neutrophils (%) (Auto) 89.5 Lymphocytes (%) (Auto) 3.1 Monocytes (%) (Auto) 6.2 Eosinophils (%) (Auto) 1.0 Basophils (%) (Auto) 0.2 Neutrophils # (Auto) 13.2 Lymphocytes # (Auto) 0.5 Monocytes # (Auto) 0.9 Eosinophils # (Auto) 0.1 Basophils # (Auto) 0.0 CBC Comment DIFF FINAL Differential Comment Sodium Level 132 Potassium Level 3.1 Chloride Level 96 Carbon Dioxide Level 26.0 Anion Gap 10 Blood Urea Nitrogen 9 Creatinine 0.56 Estimat Glomerular Filtration 165 Rate Random Glucose 118 Calcium Level 8.0 Magnesium Level 1.6 Thyroid Stimulating Hormone 0.987 3rd Gen Date/Time Procedure Status Source Growth 04/18/16 08:01 Aerobic Blood Culture Received Blood Peripheral Pending 04/18/16 08:01 Anaerobic Blood Culture Received Blood Peripheral Pending Cardiovascular: Regular Lungs: Clear Abdomen: Other (PEG in place ) Extremities: No edema Narrative Exam Face: large RIGHT sided facial malignancy A/P Assessment and Plan 35 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 Stapleton. I reviewed the care plan and directed her to document our visit in the EMR. I discussed the plan with the patient and the family. HAYDEN WOODS MD FACS Brittnee Stapleton Apr 18, 2016 10:20 Hayden Woods MD Apr 20, 2016 09:40
--- NOTE | 2016-04-18 10:36 | EKG ---
Date Performed: 04/18/2016 Time Performed: 07:22:50 PTAGE: 35 years EKG: SINUS TACHYCARDIA WITH SHORT LA INTERVAL ABNORMAL RHYTHM ECG NO PREVIOUS TRACING DOCTOR: Massimo Lara Interpretating Date/Time 04/18/2016 10:34:21
[2016-04-18] MEDS: POTASSIUM CL 40 MEQ/30 ML LIQ UDC NG SCH ×2 (10:53→21:48)
--- NOTE | 2016-04-18 12:00 | HHI.PR ---
Subjective Remarks Follow-up head and neck cancer. MAXIMUM TEMPERATURE 101 last night. Complains of warm sensation during urination. Denies chest pain, shortness of breath, abdominal pain and diarrhea discussed with RN. Seen with brother. EKG tracing interpreted by me with sinus tachycardia Objective Vitals Vital Signs Date Time Temp Pulse Resp B/P Pulse Ox O2 Delivery O2 Flow Rate FiO2 04/18/16 10:34 103 04/18/16 08:00 99.8 106 16 103/60 99 04/18/16 06:00 101.2 04/18/16 04:00 99.0 127 18 99/55 98 04/18/16 00:00 98.0 118 18 99/54 97 04/17/16 16:00 99.4 114 22 121/75 97 I/O 04/17/16 04/17/16 04/17/16 04/18/16 04/18/16 04/18/16 07:00 15:00 23:00 07:00 15:00 23:00 Intake Total 0 ml 240 ml 240 ml 120 ml Output Total 500 ml 90.0 ml 390.0 ml 300 ml Balance -500 ml 150.0 ml -390.0 ml -60 ml 120 ml Intake Oral 0 ml 240 ml 240 ml 120 ml Output Urine Total 500 ml 300 ml 300 ml Tube Feeding Residual Discard 90.0 ml 90.0 ml # Voids 1 2 # Bowel Movements 0 Result Diagram: 04/18/16 0600 04/18/16 0600 Imaging Last Impressions Chest X-Ray 04/17/16 0000 Signed Impressions: Service Date/Time: Sunday, April 17, 2016 14:18 - CONCLUSION: No acute disease. There is no evidence of pneumonia. Holland Villegas MD Liver Ultrasound 04/12/16 0000 Signed Impressions: Service Date/Time: Tuesday, April 12, 2016 22:29 - CONCLUSION: 1. Solid indeterminate mass in the left lobe of the liver as well as a tiny cyst. An MRI of the abdomen with without contrast may be helpful for further assessment if felt clinically warranted. The possibility of a metastatic lesion is not excluded. 2. Cholelithiasis. 3. Bilateral pleural effusions are suspected sonographically. Chau Ward MD Chest CT 04/11/16 0000 Signed Impressions: Service Date/Time: Monday, April 11, 2016 14:09 - CONCLUSION: 1. Multiple small scattered noncalcified pulmonary nodules which are nonspecific but are of concern for early metastatic disease. 2. The known large tumor mass in the right side of the face and neck is partially visualized with destructive change involving the right side of the mandible. This extends into the right supraclavicular region. Please see soft tissue neck CT for further details. 3. Low attenuation lesion in the left lobe of the liver again noted. Holland Villegas MD Abdomen/Pelvis CT 04/11/16 Signed Impressions: Service Date/Time: Monday, April 11, 2016 14:09 - CONCLUSION: 1. 1.4 cm low-attenuation lesion left lobe of the liver of concern for a metastasis. There is a smaller more cystic appearing structure in the right lobe. 2. The remainder of the study is unremarkable except for a PEG tube in the stomach. Holland Villegas MD Upper Extremity Ultrasound 04/08/16 Signed Impressions: Service Date/Time: Friday, April 08, 2016 13:04 - CONCLUSION: No thrombus. Deshawn Michele MD Neck CT 04/02/16 Signed Impressions: Service Date/Time: Saturday, April 02, 2016 11:54 - CONCLUSION: Very large heterogeneous soft tissue mass along the right side of the face with gross destruction involving most of the right mandible. The mass contains amorphous calcifications and appears to involve the right sternocleidomastoid muscle. The mass appears to extend into the oral cavity with diffuse enlargement of the right tonsillar pillar. Neoplastic disease in the primary consideration. Niall Corrales MD Multiplanar Reconstruction 04/02/16 Signed Impressions: Service Date/Time: Saturday, April 02, 2016 11:54 - CONCLUSION: 3-D reconstructive images demonstrating destruction involving most the right side of the mandible. Niall Corrales MD Head CT 04/02/16 Signed Impressions: Service Date/Time: Saturday, April 02, 2016 11:54 - CONCLUSION: 1. Unremarkable CT scan of the brain 2. Large abnormal soft tissue mass with calcifications along the right side of the face. Niall Corrales MD Objective Remarks GENERAL: in no acute distress HEENT; swollen right face- covered with clean dressing. CARDIOVASCULAR: Tachycardic RESPIRATORY: Clear to auscultation. Breath sounds equal bilaterally. No wheezes , rales, or rhonchi. GASTROINTESTINAL: Abdomen soft, non-tender, nondistended. Normal, active bowel sounds MUSCULOSKELETAL: Extremities without clubbing, cyanosis, or edema. NEURO: Awake and alert. Moving all extremities. Nonfocal Procedures central line placement PEG placement bone biopsy teeth extraction A/P Assessment and Plan - squamous cell carcinoma of the head CT of the face with very large heterogeneous soft tissue mass along the right side of the face with gross destruction involving most of the right mandible. The mass contains amorphous calcifications and appears to involve the right sternocleidomastoid muscle. The mass appears to extend into the oral cavity with diffuse enlargement of the right tonsillar pillar. CT of the chest and abdomen with possible lung/ liver mets. 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 continue with pain control. general and facial surgery following. -sepsis with possible right facial wound and central line as the source-central line discontinued- fever has recurred one bottle of blood cultures with pseudomonas stutzeri - continue IV Zosyn total 2 weeks end date April 20- repeated blood cultures 2/5 negative so far- will repeat bcx again with next febrile episode from central line. Negative CXR. Check UA. Fever could also be from tumor Leukocytosis. TSH within normal limits. Improving Sinus tachycardia. EKG tracing interpreted by me with sinus tachycardia. This is secondary to sepsis and fever. Could also be from anxiety -acute kidney injury/ hyponatremia due to dehydration-- improved - will monitor -hypercalcemia- received a dose of aredia-resolved- will continue to monitor. -anemia- s/p PRBC transfusion- will monitor H/H- -hypokalemia/hypomagnesemia;replaced. -severe malnutrition- s/p PEG placement-started on tube feeding - senior analyst market intelligence consulted. Patient with intolerance likely contributed by constipation. Continue Reglan and monitor response -Constipation. Now stooling continue Clara-Colace -DVT prophylaxis with lovenox -DNR status palliative care following. Discharge Planning No payor source for chemotherapy and radiation treatment. Per corrections caseworker, patient to remain in-house to complete treatment Vish Allen MD Apr 18, 2016 12:00 Vish Allen MD Apr 18, 2016 12:00
[2016-04-18 13:45] LABS: BLOOD, URINE NEG (NEG); GLUCOSE,URINE TRACE mg/dL (NEG); KETONE, URINE NEG (NEG); NITRITE,URINE NEG (NEG); URINE COLOR YELLOW (YELLW/STRAW)
[2016-04-18 13:47] LABS: COMMENT (UR) CULT NOT INDICATED; CULTURE IF INDICATED CULT NOT INDICATED
[2016-04-18] MEDS: ENOXAPARIN SODIUM 30 MG/0.3 ML SYRINGE SQ SCH (16:56)
--- NOTE | 2016-04-18 18:15 | HHI.PR ---
Subjective Remarks POD 16 s/p biopsy mass right face/extraction of mandibular teeth pt seen and examined. AAOx3, NAD to face brother at bedside pt just returned form radiation tx Objective Vital Signs Date Time Temp Pulse Resp B/P Pulse Ox O2 Delivery O2 Flow Rate FiO2 04/18/16 16:30 101.2 118 16 118/63 99 04/18/16 12:00 98.3 120 16 118/77 99 04/18/16 10:34 103 04/18/16 08:00 99.8 106 16 103/60 99 04/18/16 06:00 101.2 04/18/16 04:00 99.0 127 18 99/55 98 04/18/16 00:00 98.0 118 18 99/54 97 I/O 04/17/16 04/17/16 04/17/16 04/18/16 04/18/16 04/18/16 07:00 15:00 23:00 07:00 15:00 23:00 Intake Total 0 ml 240 ml 240 ml 360 ml Output Total 500 ml 90.0 ml 390.0 ml 300 ml 150.0 ml Balance -500 ml 150.0 ml -390.0 ml -60 ml 360 ml -150.0 ml Intake Oral 0 ml 240 ml 240 ml 360 ml Output Urine Total 500 ml 300 ml 300 ml Tube Feeding Residual Discard 90.0 ml 90.0 ml 150.0 ml # Voids 1 2 3 # Bowel Movements 0 Result Diagram: 04/18/16 0600 04/18/16 0600 Objective Remarks dressing in place , wound/mass hemostatic right face, site stable intraorally, extraction sites hemostatic, healing wound margins well approximated, trach midline mass right face appears same size undergoing chemo/rad tx Assessment and Plan Assessment and Plan mass right face/mandible region s/p extraction of teeth/biopsy pod 16 s/p peg tube/central line invasive squamous cell carcinoma keratinizing continue dressing changes radiation/chemo tx in progress wbc decreasing, temp elevated, abx will follow peripherally - no surgical intervention from OMS standpoint at this time Joseph Macias DMD Apr 18, 2016 18:15
[2016-04-19] VITALS: BP 92/50; PULSE 104; RESP 18; TEMP 97.3; O2SAT 97
[2016-04-19 04:00] VITALS: BP 97/57; PULSE 113; RESP 18; TEMP 98.7; O2SAT 98
[2016-04-19] MEDS: METOCLOPRAMIDE HCL SYRUP 10 MG/10 ML UDC G-TUBE SCH ×4 (04:17→22:34)
[2016-04-19] MEDS: ACETAMINOPHEN 325MG/HYDROcodone 7.5MG/15ML UDC PO PRN ×2 (04:18→22:56)
[2016-04-19] MEDS: PIPERACIL-TAZO 3.375 GM PREMIX 50 ML IV SCH ×4 (04:18→22:53)
[2016-04-19] MEDS: FREE WATER G-TUBE SCH ×5 (06:00→23:00)
[2016-04-19 08:00] VITALS: BP_SYST 89; BP_SYST 91; BP_DIAS 45; BP_DIAS 54; PULSE 109; RESP 20; TEMP 95.6; O2SAT 99
[2016-04-19] MEDS: MAGNESIUM OXIDE 400 MG TAB GT SCH ×2 (11:27→22:34)
[2016-04-19] MEDS: DOCUSATE SODIUM 50 MG/SENNA 8.6 MG TAB G-TUBE SCH ×2 (11:30→22:59)
[2016-04-19] MEDS: POTASSIUM CL 40 MEQ/30 ML LIQ UDC NG SCH ×2 (11:30→22:34)
[2016-04-19] MEDS: SODIUM CHLORIDE 0.9% FLUSH 5 ML FLUSH IVF SCH ×2 (11:31→22:34)
[2016-04-19] MEDS: ACETAMINOPHEN 325 MG TAB PO PRN (11:41)
[2016-04-19 12:00] VITALS: BP 108/59; PULSE 115; RESP 20; TEMP 100.7; O2SAT 100
--- NOTE | 2016-04-19 13:00 | HHI.PR ---
Subjective Subjective Notes Resting in bed Gives "thumbs up" Objective Vitals/I&O Vital Signs Date Time Temp Pulse Resp B/P Pulse Ox O2 Delivery O2 Flow Rate FiO2 04/19/16 12:00 100.7 115 20 108/59 100 Labs Laboratory Tests Test 04/18/16 13:20 Urine Color YELLOW Urine Turbidity CLEAR Urine pH 8.0 Urine Specific [place] 1.014 Urine Protein 30 Urine Glucose (UA) TRACE Urine Ketones NEG Urine Occult Blood NEG Urine Nitrite NEG Urine Bilirubin NEG Urine Urobilinogen LESS THAN 2.0 Urine Leukocyte Esterase NEG Urine RBC 1 Urine WBC 1 Urine Amorphous Sediment RARE Microscopic Urinalysis Comment CULT NOT INDICATED Date/Time Procedure Status Source Growth 04/18/16 08:01 Aerobic Blood Culture - Preliminary Resulted Blood Peripheral NO GROWTH IN 1 DAY 04/18/16 08:01 Anaerobic Blood Culture - Preliminary Resulted Blood Peripheral NO GROWTH IN 1 DAY 04/18/16 07:05 Aerobic Blood Culture Received Blood Peripheral Pending 04/18/16 07:05 Anaerobic Blood Culture Received Blood Peripheral Pending Cardiovascular: Regular Lungs: Clear Abdomen: Other (PEG in place ) Extremities: No edema Narrative Exam Face: large RIGHT sided facial malignancy A/P Assessment and Plan 35 year old male with large oropharyngeal cancer -Low grade temp overnight -s/p PEG placement -s/p biopsy of mass -Continue chemotherapy and radiation -Tolerating TF -Brother at bedside I certify and attest that I went in the patient's room and saw him with Ms. Stapleton. I reviewed the care plan and directed her to document our visit in the EMR. I discussed the plan with the patient and the family. HAYDEN WOODS MD [facility] Brittnee Stapleton Apr 19, 2016 13:00 Hayden Woods MD Apr 20, 2016 09:42
--- NOTE | 2016-04-19 13:46 | HHI.PR ---
Subjective Remarks Follow-up oropharyngeal cancer. 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 Patient has no complaints. Seen with brother. Discussed with RN Objective Vitals Vital Signs Date Time Temp Pulse Resp B/P Pulse Ox O2 Delivery O2 Flow Rate FiO2 04/19/16 12:00 100.7 115 20 108/59 100 04/19/16 08:00 95.6 109 20 91/45 99 89/54 04/19/16 04:00 98.7 113 18 97/57 98 04/19/16 00:00 97.3 104 18 92/50 97 04/18/16 21:50 99.7 04/18/16 20:00 98.7 120 18 112/55 98 04/18/16 16:30 101.2 118 16 118/63 99 I/O 04/18/16 04/18/16 04/18/16 04/19/16 04/19/16 04/19/16 07:00 15:00 23:00 07:00 15:00 23:00 Intake Total 240 ml 360 ml Output Total 300 ml 150.0 ml Balance -60 ml 360 ml -150.0 ml Intake Oral 240 ml 360 ml Output Urine Total 300 ml Tube Feeding Residual Discard 150.0 ml # Voids 3 2 Result Diagram: 04/18/16 0600 04/18/16 0600 Imaging Last Impressions Chest X-Ray 04/17/16 0000 Signed Impressions: Service Date/Time: Sunday, April 17, 2016 14:18 - CONCLUSION: No acute disease. There is no evidence of pneumonia. Holland Villegas MD Liver Ultrasound 04/12/16 0000 Signed Impressions: Service Date/Time: Tuesday, April 12, 2016 22:29 - CONCLUSION: 1. Solid indeterminate mass in the left lobe of the liver as well as a tiny cyst. An MRI of the abdomen with without contrast may be helpful for further assessment if felt clinically warranted. The possibility of a metastatic lesion is not excluded. 2. Cholelithiasis. 3. Bilateral pleural effusions are suspected sonographically. Chau Ward MD Chest CT 04/11/16 0000 Signed Impressions: Service Date/Time: Monday, April 11, 2016 14:09 - CONCLUSION: 1. Multiple small scattered noncalcified pulmonary nodules which are nonspecific but are of concern for early metastatic disease. 2. The known large tumor mass in the right side of the face and neck is partially visualized with destructive change involving the right side of the mandible. This extends into the right supraclavicular region. Please see soft tissue neck CT for further details. 3. Low attenuation lesion in the left lobe of the liver again noted. Holland Villegas MD Abdomen/Pelvis CT 04/11/16 Signed Impressions: Service Date/Time: Monday, April 11, 2016 14:09 - CONCLUSION: 1. 1.4 cm low-attenuation lesion left lobe of the liver of concern for a metastasis. There is a smaller more cystic appearing structure in the right lobe. 2. The remainder of the study is unremarkable except for a PEG tube in the stomach. Holland Villegas MD Upper Extremity Ultrasound 04/08/16 Signed Impressions: Service Date/Time: Friday, April 08, 2016 13:04 - CONCLUSION: No thrombus. Deshawn Michele MD Neck CT 04/02/16 0000 Signed Impressions: Service Date/Time: Saturday, April 02, 2016 11:54 - CONCLUSION: Very large heterogeneous soft tissue mass along the right side of the face with gross destruction involving most of the right mandible. The mass contains amorphous calcifications and appears to involve the right sternocleidomastoid muscle. The mass appears to extend into the oral cavity with diffuse enlargement of the right tonsillar pillar. Neoplastic disease in the primary consideration. Niall Corrales MD Multiplanar Reconstruction 04/02/16 Signed Impressions: Service Date/Time: Saturday, April 02, 2016 11:54 - CONCLUSION: 3-D reconstructive images demonstrating destruction involving most the right side of the mandible. Niall Corrales MD Head CT 04/02/16 0000 Signed Impressions: Service Date/Time: Saturday, April 02, 2016 11:54 - CONCLUSION: 1. Unremarkable CT scan of the brain 2. Large abnormal soft tissue mass with calcifications along the right side of the face. Niall Corrales MD Objective Remarks GENERAL: in no acute distress HEENT; swollen right face- covered with clean dressing. CARDIOVASCULAR: Tachycardic RESPIRATORY: Clear to auscultation. Breath sounds equal bilaterally. No wheezes , rales, or rhonchi. GASTROINTESTINAL: Abdomen soft, non-tender, nondistended. Normal, active bowel sounds MUSCULOSKELETAL: Extremities without clubbing, cyanosis, or edema. NEURO: Awake and alert. Moving all extremities. Nonfocal Procedures central line placement PEG placement bone biopsy teeth extraction A/P Assessment and Plan - squamous cell carcinoma of the oropharynx CT of the face with very large heterogeneous soft tissue mass along the right side of the face with gross destruction involving most of the right mandible. The mass contains amorphous calcifications and appears to involve the right sternocleidomastoid muscle. The mass appears to extend into the oral cavity with diffuse enlargement of the right tonsillar pillar. CT of the chest and abdomen with possible lung/ liver mets. 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 continue with pain control. general and facial surgery following. -sepsis with possible right facial wound and central line as the source-central line discontinued- fever has recurred one bottle of blood cultures with pseudomonas stutzeri - continue IV Zosyn total 2 weeks end date April 20- repeated blood cultures 2/5 negative so far- will repeat bcx again with next febrile episode from central line. Negative CXR. Negative UA. Fever could also be from tumor Leukocytosis. Improving Sinus tachycardia. EKG tracing interpreted by me with sinus tachycardia. This is secondary to sepsis and fever. TSH within normal limits Could also be from anxiety -acute kidney injury/ hyponatremia due to dehydration-- improved - will monitor -hypercalcemia- received a dose of aredia-resolved- will continue to monitor. -anemia- s/p PRBC transfusion- will monitor H/H- -hypokalemia/hypomagnesemia;replaced. -severe malnutrition- s/p PEG placement-started on tube feeding - cuprous chloride operator consulted. Patient with intolerance likely contributed by constipation. Increase Reglan and monitor response. We'll decrease to feeding -Constipation. Now stooling continue Clara-Colace -DVT prophylaxis with lovenox -DNR status palliative care following. Discharge Planning No payor source for chemotherapy and radiation treatment. Per case management director, patient to remain in-house to complete treatment. Poor prognosis Vish Allen MD Apr 19, 2016 13:46
[2016-04-19 14:05] VITALS: BP 100/55; PULSE 117; RESP 20; TEMP 99.8; O2SAT 100
[2016-04-19] MEDS: ENOXAPARIN SODIUM 30 MG/0.3 ML SYRINGE SQ SCH (15:46)
[2016-04-19 20:00] VITALS: BP 110/54; PULSE 123; RESP 18; TEMP 100.7; O2SAT 99
[2016-04-20] VITALS: BP 103/56; PULSE 122; RESP 18; TEMP 99.7; O2SAT 98
[2016-04-20 04:15] VITALS: BP 112/57; PULSE 114; RESP 18; TEMP 100.7; O2SAT 99
[2016-04-20] MEDS: PIPERACIL-TAZO 3.375 GM PREMIX 50 ML IV SCH (05:04)
[2016-04-20] MEDS: FREE WATER G-TUBE SCH ×4 (05:08→23:20)
[2016-04-20] MEDS: METOCLOPRAMIDE HCL SYRUP 10 MG/10 ML UDC G-TUBE SCH ×4 (07:00→20:16)
[2016-04-20 08:03] LABS: AUTOMATED NEUTROPHIL # 14.6 TH/MM3 (1.8-7.7); BASOPHIL % 0.2 % (0.0-2.0); EOSINOPHIL # 0.2 TH/MM3 (0-0.4); EOSINOPHIL % 1.4 % (0.0-4.0); HEMATOCRIT 24.2 % (39.0-51.0); LYMPH % 1.9 % (9.0-44.0); LYMPHOCYTE # 0.3 TH/MM3 (1.0-4.8); MEAN CORPUSCULAR HEMOGLOBIN 29.8 PG (27.0-34.0); MEAN CORPUSCULAR HGB CONC 33.8 % (32.0-36.0); MONO % 7.8 % (0.0-8.0); NEUT % 88.7 % (16.0-70.0); PLATELET COUNT 621 TH/MM3 (150-450); RED BLOOD COUNT 2.75 MIL/MM3 (4.50-5.90); RED CELL DISTRIBUTION WIDTH 15.2 % (11.6-17.2); WHITE BLOOD COUNT 16.5 TH/MM3 (4.0-11.0)
[2016-04-20 08:20] LABS: HEMO FLAGS AUTO DIFF
[2016-04-20 08:45] LABS: MAGNESIUM 1.6 MG/DL (1.5-2.5); POTASSIUM 3.4 MEQ/L (3.5-5.1)
[2016-04-20] MEDS: SODIUM CHLORIDE 0.9% FLUSH 5 ML FLUSH IVF SCH ×2 (09:05→20:17)
[2016-04-20 09:13] LABS: BANDS 2 % (0-6); EOSINOPHILS 1 % (0-4); MYELOCYTES 1 % (0-0); NEUTROPHIL # MANUAL DIFF 15.7 TH/MM3 (1.8-7.7); PLATELET ESTIMATE SMEAR HIGH (NORMAL); PLATELET MORPHOLOGY NORMAL (NORMAL); POLYS (SEG NEUTROPHILS) 92 % (16-70); SCAN/DIFF FINAL DIFF MANUAL; WBC DIFF SAMPLE 100
--- NOTE | 2016-04-20 11:27 | PD.ONC.PN ---
Subjective Subjective Remarks Tmax 100.7 overnight. His pain is controlled with prn medications. Per RN he is still going to XRT twice daily. Translation service used. Objective Data Date Time Temp Pulse Resp B/P Pulse Ox O2 Delivery O2 Flow Rate FiO2 04/20/16 04:15 100.7 114 18 112/57 99 04/20/16 00:00 99.7 122 18 103/56 98 04/19/16 23:56 16 04/19/16 20:00 100.7 123 18 110/54 99 04/19/16 14:05 99.8 117 20 100/55 100 04/19/16 12:00 100.7 115 20 108/59 100 04/20/16 04/20/16 04/20/16 07:00 15:00 23:00 Intake Total 200 ml Balance 200 ml Result Diagram: 04/20/16 0633 04/20/1633 Laboratory Results Laboratory Tests Test 04/20/16 06:33 White Blood Count 16.5 TH/MM3 Red Blood Count 2.75 MIL/MM3 Hemoglobin 8.2 GM/DL Hematocrit 24.2 % Mean Corpuscular Volume 88.0 FL Mean Corpuscular Hemoglobin 29.8 PG Mean Corpuscular Hemoglobin 33.8 % Concent Red Cell Distribution Width 15.2 % Platelet Count 621 TH/MM3 Mean Platelet Volume 6.2 FL Neutrophils (%) (Auto) 88.7 % Lymphocytes (%) (Auto) 1.9 % Monocytes (%) (Auto) 7.8 % Eosinophils (%) (Auto) 1.4 % Basophils (%) (Auto) 0.2 % Neutrophils # (Auto) 14.6 TH/MM3 Lymphocytes # (Auto) 0.3 TH/MM3 Monocytes # (Auto) 1.3 TH/MM3 Eosinophils # (Auto) 0.2 TH/MM3 Basophils # (Auto) 0.0 TH/MM3 CBC Comment AUTO DIFF Differential Total Cells 100 Counted Neutrophils % (Manual) 92 % Band Neutrophils % 2 % Monocytes % 4 % Eosinophils % 1 % Neutrophils # (Manual) 15.7 TH/MM3 Myelocytes 1 % Differential Comment FINAL DIFF MANUAL Platelet Estimate HIGH Platelet Morphology Comment NORMAL Sodium Level 132 MEQ/L Potassium Level 3.4 MEQ/L Chloride Level 96 MEQ/L Carbon Dioxide Level 27.0 MEQ/L Anion Gap 9 MEQ/L Blood Urea Nitrogen 10 MG/DL Creatinine 0.48 MG/DL Estimat Glomerular Filtration 197 ML/MIN Rate Random Glucose 93 MG/DL Calcium Level 8.6 MG/DL Magnesium Level 1.6 MG/DL Culture Results Microbiology Date/Time Procedure Status Source Growth 04/18/16 07:05 Aerobic Blood Culture Received Blood Peripheral Pending 04/18/16 07:05 Anaerobic Blood Culture Received Blood Peripheral Pending 04/18/16 07:55 Aerobic Blood Culture - Preliminary Resulted Blood Peripheral NO GROWTH IN 2 DAYS 04/18/16 07:55 Anaerobic Blood Culture - Preliminary Resulted Blood Peripheral NO GROWTH IN 2 DAYS 04/18/16 08:01 Aerobic Blood Culture - Preliminary Resulted Blood Peripheral NO GROWTH IN 2 DAYS 04/18/16 08:01 Anaerobic Blood Culture - Preliminary Resulted Blood Peripheral NO GROWTH IN 2 DAYS 04/19/16 13:30 Aerobic Blood Culture - Preliminary Resulted Blood Peripheral NO GROWTH IN 1 DAY 04/19/16 13:30 Anaerobic Blood Culture - Preliminary Resulted Blood Peripheral NO GROWTH IN 1 DAY 04/19/16 13:35 Aerobic Blood Culture - Preliminary Resulted Blood Peripheral NO GROWTH IN 1 DAY 04/19/16 13:35 Anaerobic Blood Culture - Preliminary Resulted Blood Peripheral NO GROWTH IN 1 DAY Administered Medications Medications (Trade) Dose Ordered Sig/Sara Route PRN Reason Start Time Stop Time Status Last Admin Dose Admin Ondansetron HCl (Zofran Inj) 4 mg Q6H PRN IV PUSH NAUSEA 04/02/16 01:45 04/02/16 02:38 IV Flush (NS Flush) 2 ml UNSCH PRN IVF FLUSH AFTER USING IV ACCESS 04/02/16 08:15 04/17/16 05:08 IV Flush (NS Flush) 2 ml BID IVF 04/02/16 09:00 04/19/16 22:34 Diphenhydramine HCl (Benadryl) 25 mg Q6H PRN PO ITCHING 04/02/16 09:00 04/12/16 04:30 Enoxaparin Sodium (Lovenox Inj) 30 mg Q24H SQ 04/04/16 15:30 04/19/16 15:46 Water (Free Water) VOLUME: 200 ML Q6HR G-TUBE 04/04/16 08:45 04/20/16 05:08 Acetaminophen (Tylenol) 650 mg Q4H PRN PO FEVER OVER 101.0 04/07/16 01:45 04/19/16 11:41 Potassium Chloride (KCl 40 Meq/30 ml Liq) 40 meq Q12HR NG 04/08/16 12:00 04/19/16 22:34 Acetaminophen/ Hydrocodone Bitart (Hycet 325-7.5 Mg Liq) 15 ml Q3HR PRN PO pain1-9 04/08/16 14:45 04/19/16 22:56 Senna/Docusate Sodium (Clara-Colace) 2 tab BID G-TUBE 04/15/16 21:00 04/19/16 11:30 Padimate O (Chapstick) 1 applic UNSCH PRN TOP DISCOMFORT 04/17/16 10:00 04/18/16 00:01 Magnesium Oxide (Mag-Ox) 800 mg Q12HR GT 04/17/16 21:00 04/19/16 22:34 Metoclopramide HCl (Reglan Liq) 10 mg ACHS G-TUBE 04/19/16 16:00 04/19/16 22:34 Objective Remarks GENERAL: Young man watching TV. SKIN: Warm and dry. HEAD: Normocephalic. Severe R facial deformity. EYES: No injection or drainage. NECK: Tumor somewhat smaller than the last time I saw it. It has some eschar at the superior edge. Bleeding less. It no longer has a purulent odor. CARDIOVASCULAR: Regular rate and rhythm RESPIRATORY: Breath sounds equal bilaterally. No accessory muscle use. GASTROINTESTINAL: Abdomen soft, non-tender. G-tube infusing TF at 20ml/hr. EXTREMITIES: No cyanosis. NEUROLOGICAL: Awake and alert. Moving all extremities. Assessment/Plan Assessment 35y/o male with invasive squamous cell carcinoma. 04/12/16--XRT started; twice daily. 04/13/16:weekly carbo/taxol dose 1 given Plan We are planing to give him his weekly dose of carbo/Taxol tomorrow. I explained this to the brother with use of translation. We will continue the twice daily XRT treatments. Per RN he has had increased residuals from TF and free water. Will monitor this. Attending Statement The exam, history, and the medical decision-making described in the above note were completed with the assistance of the mid-level provider. I reviewed and agree with the findings presented. I attest that I had a [id number] encounter with the patient on the same day, and personally performed and documented my assessment and findings in the medical record. Spoke with pt and his brother and they understand that we plan to continue weekly carbo/Taxol. They feel the tumor is slightly smaller, all though it is premature. If temperature spikes significantly, would repeat blood cultures as coverage is limited to anaerobes. Amy Burris Apr 20, 2016 11:26 Yovany Lezama MD Apr 20, 2016 19:24
[2016-04-20 12:00] VITALS: BP 95/63; PULSE 105; RESP 20; TEMP 95.2; O2SAT 98
[2016-04-20] MEDS: DOCUSATE SODIUM 50 MG/SENNA 8.6 MG TAB G-TUBE SCH ×2 (12:21→20:16)
[2016-04-20] MEDS: POTASSIUM CL 40 MEQ/30 ML LIQ UDC NG SCH ×2 (12:22→20:16)
[2016-04-20] MEDS: MAGNESIUM OXIDE 400 MG TAB GT SCH ×2 (12:22→20:16)
[2016-04-20] MEDS: ACETAMINOPHEN 325MG/HYDROcodone 7.5MG/15ML UDC PO PRN ×2 (12:51→20:18)
--- NOTE | 2016-04-20 13:42 | HHI.PR ---
Subjective Remarks Follow-up oropharyngeal cancer. Continues to have fever. Reports of constipation with painless rectal bleeding. Discussed with RN and Gen. surgery Objective Vitals Vital Signs Date Time Temp Pulse Resp B/P Pulse Ox O2 Delivery O2 Flow Rate FiO2 04/20/16 12:00 95.2 105 20 95/63 98 04/20/16 04:15 100.7 114 18 112/57 99 04/20/16 00:00 99.7 122 18 103/56 98 04/19/16 23:56 16 04/19/16 20:00 100.7 123 18 110/54 99 04/19/16 14:05 99.8 117 20 100/55 100 I/O 04/19/16 04/19/16 04/19/16 04/20/16 04/20/16 04/20/16 07:00 15:00 23:00 07:00 15:00 23:00 Intake Total 375 ml 400 ml 200 ml Balance 375 ml 400 ml 200 ml IV Total 75 ml Tube Feeding 60 ml Other 240 ml 400 ml 200 ml # Voids 2 2 Result Diagram: 04/20/1633 04/20/16632 Objective Remarks GENERAL: in no acute distress HEENT; swollen right face- covered with clean dressing. CARDIOVASCULAR: Tachycardic RESPIRATORY: Clear to auscultation. Breath sounds equal bilaterally. No wheezes , rales, or rhonchi. GASTROINTESTINAL: Abdomen soft, non-tender, nondistended. Normal, active bowel sounds MUSCULOSKELETAL: Extremities without clubbing, cyanosis, or edema. NEURO: Awake and alert. Moving all extremities. Nonfocal Procedures central line placement PEG placement bone biopsy teeth extraction A/P Assessment and Plan - squamous cell carcinoma of the oropharynx CT of the face with very large heterogeneous soft tissue mass along the right side of the face with gross destruction involving most of the right mandible. The mass contains amorphous calcifications and appears to involve the right sternocleidomastoid muscle. The mass appears to extend into the oral cavity with diffuse enlargement of the right tonsillar pillar. CT of the chest and abdomen with possible lung/ liver mets. 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 continue with pain control. general and facial surgery following. -sepsis with possible right facial wound and central line as the source-central line discontinued- fever has recurred one bottle of blood cultures with pseudomonas stutzeri - s/p IV Zosyn total 2 weeks end date April 20- repeated blood cultures 2/5 negative so far- will repeat bcx again with next febrile episode from central line. Negative CXR. Negative UA. Fever could also be from tumor. Empiric Flagyl cover anaerobic infection Leukocytosis. Worse secondary to above Sinus tachycardia. EKG tracing interpreted by me with sinus tachycardia. This is secondary to sepsis and fever. TSH within normal limits Could also be from anxiety -acute kidney injury/ hyponatremia due to dehydration-- improved - will monitor -hypercalcemia- received a dose of aredia-resolved- will continue to monitor. -anemia- s/p PRBC transfusion- will monitor H/H- -hypokalemia/hypomagnesemia;replaced. -severe malnutrition- s/p PEG placement-started on tube feeding - blasting entryman consulted. Patient with intolerance likely contributed by constipation. Increase Reglan and monitor response. We'll decrease tube feeding -Constipation. Now stooling continue Clara-Colace. Monitor hemorrhoidal bleeding -DVT prophylaxis with lovenox and consider discontinuation if worsening rectal bleeding -DNR status palliative care following. Discharge Planning No payor source for chemotherapy and radiation treatment. Per social work case manager, patient to remain in-house to complete treatment. Poor prognosis Vish Allen MD Apr 20, 2016 13:42
[2016-04-20] MEDS ORDERED: POTASSIUM CHLORIDE 10 MEQ CONTROLLED RELEASE TAB PO ONE (13:45)
--- NOTE | 2016-04-20 14:07 | HHI.PR ---
Subjective Subjective Notes Resting in bed; verbal today (in [place]) Objective Vitals/I&O Vital Signs Date Time Temp Pulse Resp B/P Pulse Ox O2 Delivery O2 Flow Rate FiO2 04/20/16 12:00 95.2 105 20 95/63 98 Labs Laboratory Tests Test 04/20/16 06:33 White Blood Count 16.5 Red Blood Count 2.75 Hemoglobin 8.2 Hematocrit 24.2 Mean Corpuscular Volume 88.0 Mean Corpuscular Hemoglobin 29.8 Mean Corpuscular Hemoglobin 33.8 Concent Red Cell Distribution Width 15.2 Platelet Count 621 Mean Platelet Volume 6.2 Neutrophils (%) (Auto) 88.7 Lymphocytes (%) (Auto) 1.9 Monocytes (%) (Auto) 7.8 Eosinophils (%) (Auto) 1.4 Basophils (%) (Auto) 0.2 Neutrophils # (Auto) 14.6 Lymphocytes # (Auto) 0.3 Monocytes # (Auto) 1.3 Eosinophils # (Auto) 0.2 Basophils # (Auto) 0.0 CBC Comment AUTO DIFF Differential Total Cells 100 Counted Neutrophils % (Manual) 92 Band Neutrophils % 2 Monocytes % 4 Eosinophils % 1 Neutrophils # (Manual) 15.7 Myelocytes 1 Differential Comment FINAL DIFF MANUAL Platelet Estimate HIGH Platelet Morphology Comment NORMAL Sodium Level 132 Potassium Level 3.4 Chloride Level 96 Carbon Dioxide Level 27.0 Anion Gap 9 Blood Urea Nitrogen 10 Creatinine 0.48 Estimat Glomerular Filtration 197 Rate Random Glucose 93 Calcium Level 8.6 Magnesium Level 1.6 Date/Time Procedure Status Source Growth 04/19/16 13:35 Aerobic Blood Culture - Preliminary Resulted Blood Peripheral NO GROWTH IN 1 DAY 04/19/16 13:35 Anaerobic Blood Culture - Preliminary Resulted Blood Peripheral NO GROWTH IN 1 DAY 04/18/16 07:05 Aerobic Blood Culture Received Blood Peripheral Pending 04/18/16 07:05 Anaerobic Blood Culture Received Blood Peripheral Pending Cardiovascular: Regular Lungs: Clear, Rhonchi (PEG in place ) Narrative Exam Face: large RIGHT sided facial malignancy A/P Assessment and Plan 35 year old male with large oropharyngeal cancer -Complains of pain in shoulders but pain medications help -Low grade temp overnight -s/p PEG placement -s/p biopsy of mass -Continue chemotherapy and radiation -Tolerating TF -Brother at bedside I CERTIFY AND ATTEST THAT I PERSONALLY EXAMINED THIS PATIENT IN HIS ROOM. I DIRECTED MS AVILES TO DOCUMENT OUR VISIT AND ENTER THE ORDERS IN THE EMR. Brittnee Meraz MD, FACS Apr 20, 2016 14:06 Juan Oseguera MD Apr 25, 2016 10:29
[2016-04-20] MEDS: metroNIDAZOLE 500 MG INJ 100 ML IV SCH ×2 (14:22→20:16)
[2016-04-20] MEDS: ENOXAPARIN SODIUM 30 MG/0.3 ML SYRINGE SQ SCH (17:22)
[2016-04-20 17:29] VITALS: BP 96/55; PULSE 109; RESP 18; TEMP 97.4; O2SAT 100
[2016-04-20 20:00] VITALS: BP 99/61; PULSE 125; RESP 16; TEMP 98.9; O2SAT 100
[2016-04-21] VITALS: BP 83/56; PULSE 114; RESP 17; TEMP 99.2; O2SAT 97
[2016-04-21] MEDS: metroNIDAZOLE 500 MG INJ 100 ML IV SCH ×4 (02:11→20:24)
[2016-04-21 05:00] VITALS: BP 83/55; PULSE 121; RESP 17; TEMP 100.2; O2SAT 95
[2016-04-21] MEDS: FREE WATER G-TUBE SCH ×3 (05:32→16:53)
[2016-04-21] MEDS: ACETAMINOPHEN 325 MG TAB PO PRN (05:32)
[2016-04-21] MEDS: METOCLOPRAMIDE HCL SYRUP 10 MG/10 ML UDC G-TUBE SCH ×4 (05:32→22:34)
[2016-04-21 08:00] VITALS: BP 112/49; PULSE 105; RESP 16; TEMP 97.1; O2SAT 98
[2016-04-21] MEDS: SODIUM CHLORIDE 0.9% FLUSH 5 ML FLUSH IVF SCH ×2 (09:00→20:45)
--- NOTE | 2016-04-21 09:15 | PD.ONC.PN ---
Subjective Subjective Remarks Tmax 100.2 overnight. Patient resting comfortably with brother at bedside. He feels the tumor is improved since starting radiation and chemotherapy. Objective Data Date Time Temp Pulse Resp B/P Pulse Ox O2 Delivery O2 Flow Rate FiO2 04/21/16 08:00 97.1 105 16 112/49 98 04/21/16 06:32 18 04/21/16 05:00 100.2 121 17 83/55 95 04/21/16 00:00 99.2 114 17 83/56 97 04/20/16 21:18 18 04/20/16 21:18 17 04/20/16 20:00 98.9 125 16 99/61 100 04/20/16 17:29 97.4 109 18 96/55 100 04/20/16 12:00 95.2 105 20 95/63 98 Result Diagram: 04/20/16 0633 04/20/1633 Culture Results Microbiology Date/Time Procedure Status Source Growth 04/19/16 13:30 Aerobic Blood Culture - Preliminary Resulted Blood Peripheral NO GROWTH IN 1 DAY 04/19/16 13:30 Anaerobic Blood Culture - Preliminary Resulted Blood Peripheral NO GROWTH IN 1 DAY 04/19/16 13:35 Aerobic Blood Culture - Preliminary Resulted Blood Peripheral NO GROWTH IN 1 DAY 04/19/16 13:35 Anaerobic Blood Culture - Preliminary Resulted Blood Peripheral NO GROWTH IN 1 DAY Administered Medications Medications (Trade) Dose Ordered Sig/Sara Route PRN Reason Start Time Stop Time Status Last Admin Dose Admin Ondansetron HCl (Zofran Inj) 4 mg Q6H PRN IV PUSH NAUSEA 04/02/16 01:45 04/02/16 02:38 IV Flush (NS Flush) 2 ml UNSCH PRN IVF FLUSH AFTER USING IV ACCESS 04/02/16 08:15 04/17/16 05:08 IV Flush (NS Flush) 2 ml BID IVF 04/02/16 09:00 04/20/16 20:17 Diphenhydramine HCl (Benadryl) 25 mg Q6H PRN PO ITCHING 04/02/16 09:00 04/12/16 04:30 Enoxaparin Sodium (Lovenox Inj) 30 mg Q24H SQ 04/04/16 15:30 04/20/16 17:22 Water (Free Water) VOLUME: 200 ML Q6HR G-TUBE 04/04/16 08:45 04/21/16 05:32 Acetaminophen (Tylenol) 650 mg Q4H PRN PO FEVER OVER 101.0 04/07/16 01:45 04/21/16 05:32 Potassium Chloride (KCl 40 Meq/30 ml Liq) 40 meq Q12HR NG 04/08/16 12:00 04/20/16 20:16 Acetaminophen/ Hydrocodone Bitart (Hycet 325-7.5 Mg Liq) 15 ml Q3HR PRN PO pain1-9 04/08/16 14:45 04/20/16 20:18 Senna/Docusate Sodium (Clara-Colace) 2 tab BID G-TUBE 04/15/16 21:00 04/20/16 20:16 Padimate O (Chapstick) 1 applic UNSCH PRN TOP DISCOMFORT 04/17/16 10:00 04/18/16 00:01 Magnesium Oxide (Mag-Ox) 800 mg Q12HR GT 04/17/16 21:00 04/20/16 20:16 Metoclopramide HCl 10 mg 10 mg ACHS G-TUBE 04/19/16 16:00 04/21/16 05:32 Metronidazole (Flagyl 500 Mg Inj) 100 ml @ 100 mls/hr Q6H IV 04/20/16 14:00 05/04/16 13:59 04/21/16 02:11 Objective Remarks GENERAL: Young man sitting up in bed, large tumor right face SKIN: warm and dry. HEAD: Normocephalic. EYES: No injection or drainage. NECK: tumor in right neck/face with bandages over top CARDIOVASCULAR: Regular rate and rhythm RESPIRATORY: Breath sounds equal bilaterally. No accessory muscle use. GASTROINTESTINAL: Abdomen soft, non-tender. G-tube in place, receiving TF @30cc/ hr EXTREMITIES: No cyanosis. NEUROLOGICAL: Awake and alert. Assessment/Plan Assessment 35y/o male with invasive squamous cell carcinoma. 04/12/16--XRT started; twice daily. 04/13/16: weekly carbo/taxol dose 1 given 04/21/16:continue XRT. weekly carbo/taxol dose 2 given Plan 1. discussed with patient and brother via translation service--plan to give weekly carbo/taxol dose today and weekly until radiation finishes. 2. continue supportive care Attending Statement The exam, history, and the medical decision-making described in the above note were completed with the assistance of the mid-level provider. I reviewed and agree with the findings presented. I attest that I had a [id number] encounter with the patient on the same day, and personally performed and documented my assessment and findings in the medical record. with the use of a boat cleaning supervisor the patient indicates that he is doing better and wants to continue. little change in exam but do not expect much progress at this point. have ordered carbo and Taxol and radiation to continue Sirisha Cotton Apr 21, 2016 09:15 Yovany Lezama MD Apr 21, 2016 21:18
[2016-04-21 10:08] LABS: AUTOMATED NEUTROPHIL # 14.3 TH/MM3 (1.8-7.7); BASOPHIL % 0.2 % (0.0-2.0); EOSINOPHIL # 0.1 TH/MM3 (0-0.4); EOSINOPHIL % 0.7 % (0.0-4.0); HEMATOCRIT 23.2 % (39.0-51.0); HEMO FLAGS DIFF FINAL; LYMPH % 1.8 % (9.0-44.0); LYMPHOCYTE # 0.3 TH/MM3 (1.0-4.8); MEAN CELL VOLUME 88.7 FL (80.0-100.0); MEAN CORPUSCULAR HEMOGLOBIN 29.9 PG (27.0-34.0); MEAN CORPUSCULAR HGB CONC 33.7 % (32.0-36.0); MONO % 9.7 % (0.0-8.0); NEUT % 87.6 % (16.0-70.0); PLATELET COUNT 571 TH/MM3 (150-450); RED BLOOD COUNT 2.62 MIL/MM3 (4.50-5.90); RED CELL DISTRIBUTION WIDTH 15.2 % (11.6-17.2); WHITE BLOOD COUNT 16.3 TH/MM3 (4.0-11.0)
[2016-04-21 10:35] LABS: BICARBONATE 26.9 MEQ/L (21.0-32.0); POTASSIUM 3.6 MEQ/L (3.5-5.1)
[2016-04-21] MEDS: POTASSIUM CL 40 MEQ/30 ML LIQ UDC NG SCH ×2 (10:43→22:34)
[2016-04-21] MEDS: DOCUSATE SODIUM 50 MG/SENNA 8.6 MG TAB G-TUBE SCH ×2 (10:43→22:35)
[2016-04-21] MEDS: MAGNESIUM OXIDE 400 MG TAB GT SCH ×2 (10:43→20:24)
[2016-04-21 12:00] VITALS: BP 88/57; PULSE 110; RESP 16; TEMP 97; O2SAT 98
[2016-04-21] MEDS ORDERED: GRANISETRON HCL 1 MG/ML VIAL IV PUSH ONE (12:00)
[2016-04-21] MEDS ORDERED: SODIUM CHLOR 0.9% 250 ML INJ 250 ML IV ONE (12:00)
[2016-04-21] MEDS ORDERED: DEXAMETHASONE INJ 10 MG in SODIUM CHLORIDE 0.9% INJ 50 ML IV ONE (12:00)
[2016-04-21] MEDS ORDERED: FAMOTIDINE 20 MG/2 ML VIAL IV PUSH ONE (12:00)
[2016-04-21] MEDS ORDERED: diphenhydrAMINE HCL 25 MG CAP PO ONE (12:00)
--- NOTE | 2016-04-21 12:02 | HHI.PR ---
Subjective Remarks Follow-up fever. Improving fever curve with patient has no complaints. Discussed with RN Objective Vitals Vital Signs Date Time Temp Pulse Resp B/P Pulse Ox O2 Delivery O2 Flow Rate FiO2 04/21/16 08:00 97.1 105 16 112/49 98 04/21/16 06:32 18 04/21/16 05:00 100.2 121 17 83/55 95 04/21/16 00:00 99.2 114 17 83/56 97 04/20/16 21:18 18 04/20/16 21:18 17 04/20/16 20:00 98.9 125 16 99/61 100 04/20/16 17:29 97.4 109 18 96/55 100 I/O 04/20/16 04/20/16 04/20/16 04/21/16 04/21/16 04/21/16 07:00 15:00 23:00 07:00 15:00 23:00 Intake Total 200 ml 300 ml 200 ml Balance 200 ml 300 ml 200 ml Tube Feeding 60 ml Other 200 ml 240 ml 200 ml # Voids 2 1 1 # Bowel Movements 0 0 Result Diagram: 04/21/16 0846 04/21/16 0846 Imaging Last Impressions Chest X-Ray 04/17/16 0000 Signed Impressions: Service Date/Time: Sunday, April 17, 2016 14:18 - CONCLUSION: No acute disease. There is no evidence of pneumonia. Holland Villegas MD Liver Ultrasound 04/12/16 0000 Signed Impressions: Service Date/Time: Tuesday, April 12, 2016 22:29 - CONCLUSION: 1. Solid indeterminate mass in the left lobe of the liver as well as a tiny cyst. An MRI of the abdomen with without contrast may be helpful for further assessment if felt clinically warranted. The possibility of a metastatic lesion is not excluded. 2. Cholelithiasis. 3. Bilateral pleural effusions are suspected sonographically. Chau Ward MD Chest CT 04/11/16 0000 Signed Impressions: Service Date/Time: Monday, April 11, 2016 14:09 - CONCLUSION: 1. Multiple small scattered noncalcified pulmonary nodules which are nonspecific but are of concern for early metastatic disease. 2. The known large tumor mass in the right side of the face and neck is partially visualized with destructive change involving the right side of the mandible. This extends into the right supraclavicular region. Please see soft tissue neck CT for further details. 3. Low attenuation lesion in the left lobe of the liver again noted. Holland Villegas MD Abdomen/Pelvis CT 04/11/16 Signed Impressions: Service Date/Time: Monday, April 11, 2016 14:09 - CONCLUSION: 1. 1.4 cm low-attenuation lesion left lobe of the liver of concern for a metastasis. There is a smaller more cystic appearing structure in the right lobe. 2. The remainder of the study is unremarkable except for a PEG tube in the stomach. Holland Villegas MD Upper Extremity Ultrasound 04/08/16 Signed Impressions: Service Date/Time: Friday, April 08, 2016 13:04 - CONCLUSION: No thrombus. Deshawn Michele MD Neck CT 04/02/16 Signed Impressions: Service Date/Time: Saturday, April 02, 2016 11:54 - CONCLUSION: Very large heterogeneous soft tissue mass along the right side of the face with gross destruction involving most of the right mandible. The mass contains amorphous calcifications and appears to involve the right sternocleidomastoid muscle. The mass appears to extend into the oral cavity with diffuse enlargement of the right tonsillar pillar. Neoplastic disease in the primary consideration. Niall Corrales MD Multiplanar Reconstruction 04/02/16 Signed Impressions: Service Date/Time: Saturday, April 02, 2016 11:54 - CONCLUSION: 3-D reconstructive images demonstrating destruction involving most the right side of the mandible. Niall Corrales MD Head CT 04/02/16 Signed Impressions: Service Date/Time: Saturday, April 02, 2016 11:54 - CONCLUSION: 1. Unremarkable CT scan of the brain 2. Large abnormal soft tissue mass with calcifications along the right side of the face. Niall Corrales MD Objective Remarks GENERAL: in no acute distress HEENT; swollen right face- covered with clean dressing. CARDIOVASCULAR: Improving tachycardia RESPIRATORY: Clear to auscultation. Breath sounds equal bilaterally. No wheezes , rales, or rhonchi. GASTROINTESTINAL: Abdomen soft, non-tender, nondistended. Normal, active bowel sounds MUSCULOSKELETAL: Extremities without clubbing, cyanosis, or edema. NEURO: Awake and alert. Moving all extremities. Nonfocal Procedures central line placement PEG placement bone biopsy teeth extraction A/P Assessment and Plan - squamous cell carcinoma of the oropharynx CT of the face with very large heterogeneous soft tissue mass along the right side of the face with gross destruction involving most of the right mandible. The mass contains amorphous calcifications and appears to involve the right sternocleidomastoid muscle. The mass appears to extend into the oral cavity with diffuse enlargement of the right tonsillar pillar. CT of the chest and abdomen with possible lung/ liver mets. 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 continue with pain control. general and facial surgery following. -sepsis with possible right facial wound and central line as the source-central line discontinued- fever has recurred one bottle of blood cultures with pseudomonas stutzeri - s/p IV Zosyn total 2 weeks end date April 20- repeated blood cultures 2/5 negative so far- will repeat bcx again with next febrile episode from central line. Negative CXR. Negative UA. Fever could also be from tumor. Empiric Flagyl cover anaerobic infection. Improving fever curve Leukocytosis. Stable Sinus tachycardia. EKG tracing interpreted by me with sinus tachycardia. This is secondary to sepsis and fever. TSH within normal limits Could also be from anxiety -acute kidney injury/ hyponatremia due to dehydration-- improved - will monitor -hypercalcemia- received a dose of aredia-resolved- will continue to monitor. -anemia- s/p PRBC transfusion- will monitor H/H- -hypokalemia/hypomagnesemia;replaced. -severe malnutrition- s/p PEG placement-started on tube feeding - nutritional health coach consulted. Patient with intolerance likely contributed by constipation. Increase Reglan and monitor response. We'll decrease tube feeding -Constipation. Now stooling continue Clara-Colace. Monitor hemorrhoidal bleeding -DVT prophylaxis with lovenox and consider discontinuation if worsening rectal bleeding -DNR status palliative care following. Discharge Planning No payor source for chemotherapy and radiation treatment. Per sample case porter, patient to remain in-house to complete treatment. Poor prognosis Vish Allen MD Apr 21, 2016 12:02
[2016-04-21] MEDS ORDERED: PACLITAXEL IV ONE (13:00)
[2016-04-21] MEDS ORDERED: SODIUM CHLOR 0.9% IV ONE ×2 (13:00→14:00)
[2016-04-21] MEDS: ACETAMINOPHEN 325MG/HYDROcodone 7.5MG/15ML UDC PO PRN ×2 (13:12→20:55)
[2016-04-21] MEDS ORDERED: CARBOPLATIN IV ONE (14:00)
--- NOTE | 2016-04-21 14:31 | HHI.HCPN ---
Reason for visit a. To assist with evaluation and management of symptoms including: jaw/ facial pain and debility. b. To assist medical decision maker(s) with: better understanding of current medical conditions; weighing benefits/burdens of medical treatment options; making medical treatment decisions. Subjective/Interval History Palliative care f/u for pain and symptom management as well as clarifications of goals of care and emotional support. Patient seen in his room. Brother Vish at bedside. No educational sign language interpreter used or needed as we both speak fluent Ecuadorean. Patient was sitting up in recliner chair in no acute distress, reporting right-sided facial and shoulder/arm pain. Currently at 4/10, which is an acceptable level of pain to patient. Patient reports feeling much better, able to verbalize a few words in Ecuadorean. Reports that he feels that tumor size has decreased, allowing him to open with mouth a little bit more and verbalize a few words. Patient seen smiling, giving me thumps up when ask how he was doing. Patient denies shortness of breath, nausea, vomiting or abdominal discomfort. Max temp 100.2 today, hypotensive with SBP in the 80's -however, asymptomatic. Labs today including WBC 16.3, Hgb 7.8, pl count 571. Sodium 134, K 3.6, BUN/creat 8/0.53. Albumin 1.6. CXR 04/17/16 negative for acute process. . Family/friend interactions Spoke with patient and brother at bedside. Brother verbalized his satisfaction with current medical treatment, reports that patient has improved since starting radiation and chemotherapy. Brother reports that patient is more awake , interacting more and in less acute pain. Brother very appreciative for treatment up today, reports that they continue in close contact over the telephone with their family in [facility] ([place], [place]) and they are all very happy with patient's improve in clinical status. Reviewed that current treatment is for palliation of symptoms and not curative, brother verbalized understanding. . Advance Directives Living Will: Never completed Health Care Surrogate: Copy in medical record Durable Power of Board Layer: Never completed Advance Directive Specifics Date completed: 04/11/2016. . Health Care Surrogate(s): Patient completed [facility] designation naming his brother Vish Jaimes as [facility]. . Documented care wishes: No living will completed. . Significant change in goals: NO CODE. Continue with current treatment plan for palliation of symptoms. . Objective Vital Signs Date Time Temp Pulse Resp B/P Pulse Ox O2 Delivery O2 Flow Rate FiO2 04/21/16 12:00 97.0 110 16 88/57 98 04/21/16 08:00 97.1 105 16 112/49 98 04/21/16 06:32 18 04/21/16 05:00 100.2 121 17 83/55 95 04/21/16 00:00 99.2 114 17 83/56 97 04/20/16 21:18 18 04/20/16 21:18 17 04/20/16 20:00 98.9 125 16 99/61 100 04/20/16 17:29 97.4 109 18 96/55 100 Intake & Output 04/21/16 04/21/16 07:00 19:00 Intake Total 200 ml Balance 200 ml Other 200 ml # Voids 2 # Bowel Movements 0 Physical Exam CONSTITUTIONAL/GENERAL: This is an cachectic male in no acute distress. TUBES/LINES/DRAINS: PIV's. SKIN: Skin temperature appropriate. Not diaphoretic. HEAD: Atraumatic. Normocephalic. EYES: Pupils equal and round and reactive. No injection or drainage. ENT: Hearing grossly normal. Large mass to right side of mouth/jaw with dressing in place. scant amount of green/brown purulent drainage noted. Foul odor. CARDIOVASCULAR: Regular rate and rhythm.Peripheral pulses symmetric. RESPIRATORY/CHEST: Symmetric, unlabored respirations. Clear to auscultation. Breath sounds equal bilaterally. No wheezes, rales, or rhonchi. GASTROINTESTINAL: Abdomen soft, non-tender, nondistended. PEG in place. No guarding. Bowel sounds present. Ongoing tube feeding. MUSCULOSKELETAL: Extremities without clubbing, cyanosis, or edema. significant muscle wasting noted. NEUROLOGICAL: alert, following commands. Attempting to communicate by hand gestures and nodding head to yes/no questions. PSYCHIATRIC: calm. . Diagnostic Tests Laboratory Laboratory Tests Test 04/20/16 04/21/16 06:33 08:46 White Blood Count 16.5 TH/MM3 16.3 TH/MM3 (4.0-11.0) (4.0-11.0) Red Blood Count 2.75 MIL/MM3 2.62 MIL/MM3 (4.50-5.90) (4.50-5.90) Hemoglobin 8.2 GM/DL 7.8 GM/DL (13.0-17.0) (13.0-17.0) Hematocrit 24.2 % 23.2 % (39.0-51.0) (39.0-51.0) Mean Corpuscular Volume 88.0 FL 88.7 FL (80.0-100.0) (80.0-100.0) Mean Corpuscular Hemoglobin 29.8 PG 29.9 PG (27.0-34.0) (27.0-34.0) Mean Corpuscular Hemoglobin 33.8 % 33.7 % Concent (32.0-36.0) (32.0-36.0) Red Cell Distribution Width 15.2 % 15.2 % (11.6-17.2) (11.6-17.2) Platelet Count 621 TH/MM3 571 TH/MM3 (150-450) (150-450) Mean Platelet Volume 6.2 FL 6.3 FL (7.0-11.0) (7.0-11.0) Neutrophils (%) (Auto) 88.7 % 87.6 % (16.0-70.0) (16.0-70.0) Lymphocytes (%) (Auto) 1.9 % 1.8 % (9.0-44.0) (9.0-44.0) Monocytes (%) (Auto) 7.8 % (0.0-8.0) 9.7 % (0.0-8.0) Eosinophils (%) (Auto) 1.4 % (0.0-4.0) 0.7 % (0.0-4.0) Basophils (%) (Auto) 0.2 % (0.0-2.0) 0.2 % (0.0-2.0) Neutrophils # (Auto) 14.6 TH/MM3 14.3 TH/MM3 (1.8-7.7) (1.8-7.7) Lymphocytes # (Auto) 0.3 TH/MM3 0.3 TH/MM3 (1.0-4.8) (1.0-4.8) Monocytes # (Auto) 1.3 TH/MM3 1.6 TH/MM3 (0-0.9) (0-0.9) Eosinophils # (Auto) 0.2 TH/MM3 0.1 TH/MM3 (0-0.4) (0-0.4) Basophils # (Auto) 0.0 TH/MM3 0.0 TH/MM3 (0-0.2) (0-0.2) CBC Comment AUTO DIFF DIFF FINAL Differential Total Cells 100 Counted Neutrophils % (Manual) 92 % (16-70) Band Neutrophils % 2 % (0-6) Monocytes % 4 % (0-8) Eosinophils % 1 % (0-4) Neutrophils # (Manual) 15.7 TH/MM3 (1.8-7.7) Myelocytes 1 % (0-0) Differential Comment FINAL DIFF MANUAL Platelet Estimate HIGH (NORMAL) Platelet Morphology Comment NORMAL (NORMAL) Sodium Level 132 MEQ/L 134 MEQ/L (136-145) (136-145) Potassium Level 3.4 MEQ/L 3.6 MEQ/L (3.5-5.1) (3.5-5.1) Chloride Level 96 MEQ/L 97 MEQ/L (98-107) (98-107) Carbon Dioxide Level 27.0 MEQ/L 26.9 MEQ/L (21.0-32.0) (21.0-32.0) Anion Gap 9 MEQ/L (5-15) 10 MEQ/L (5-15) Blood Urea Nitrogen 10 MG/DL (7-18) 8 MG/DL (7-18) Creatinine 0.48 MG/DL 0.53 MG/DL (0.60-1.30) (0.60-1.30) Estimat Glomerular Filtration 197 ML/MIN 176 ML/MIN Rate (>89) (>89) Random Glucose 93 MG/DL 111 MG/DL (74-106) (74-106) Calcium Level 8.6 MG/DL 9.0 MG/DL (8.5-10.1) (8.5-10.1) Magnesium Level 1.6 MG/DL (1.5-2.5) Result Diagram: 04/21/1646 04/21/16 0846 Microbiology Microbiology Date/Time Procedure Status Source Growth 04/19/16 13:30 Aerobic Blood Culture - Preliminary Resulted Blood Peripheral NO GROWTH IN 2 DAYS 04/19/16 13:30 Anaerobic Blood Culture - Preliminary Resulted Blood Peripheral NO GROWTH IN 2 DAYS 04/19/16 13:35 Aerobic Blood Culture - Preliminary Resulted Blood Peripheral NO GROWTH IN 2 DAYS 04/19/16 13:35 Anaerobic Blood Culture - Preliminary Resulted Blood Peripheral NO GROWTH IN 2 DAYS 04/21/16 08:46 Aerobic Blood Culture Received Blood Peripheral Pending 04/21/16 08:46 Anaerobic Blood Culture Received Blood Peripheral Pending 04/21/16 08:51 Aerobic Blood Culture Received Blood Peripheral Pending 04/21/16 08:51 Anaerobic Blood Culture Received Blood Peripheral Pending Imaging Last Impressions Chest X-Ray 04/17/16 0000 Signed Impressions: Service Date/Time: Sunday, April 17, 2016 14:18 - CONCLUSION: No acute disease. There is no evidence of pneumonia. Holland Villegas MD Liver Ultrasound 04/12/16 0000 Signed Impressions: Service Date/Time: Tuesday, April 12, 2016 22:29 - CONCLUSION: 1. Solid indeterminate mass in the left lobe of the liver as well as a tiny cyst. An MRI of the abdomen with without contrast may be helpful for further assessment if felt clinically warranted. The possibility of a metastatic lesion is not excluded. 2. Cholelithiasis. 3. Bilateral pleural effusions are suspected sonographically. Chau Ward MD Chest CT 04/11/16 0000 Signed Impressions: Service Date/Time: Monday, April 11, 2016 14:09 - CONCLUSION: 1. Multiple small scattered noncalcified pulmonary nodules which are nonspecific but are of concern for early metastatic disease. 2. The known large tumor mass in the right side of the face and neck is partially visualized with destructive change involving the right side of the mandible. This extends into the right supraclavicular region. Please see soft tissue neck CT for further details. 3. Low attenuation lesion in the left lobe of the liver again noted. Holland Villegas MD Abdomen/Pelvis CT 04/11/16 0000 Signed Impressions: Service Date/Time: Monday, April 11, 2016 14:09 - CONCLUSION: 1. 1.4 cm low-attenuation lesion left lobe of the liver of concern for a metastasis. There is a smaller more cystic appearing structure in the right lobe. 2. The remainder of the study is unremarkable except for a PEG tube in the stomach. Holland Villegas MD Upper Extremity Ultrasound 04/08/16 0000 Signed Impressions: Service Date/Time: Friday, April 08, 2016 13:04 - CONCLUSION: No thrombus. Deshawn Michele MD Neck CT 04/02/16 0000 Signed Impressions: Service Date/Time: Saturday, April 02, 2016 11:54 - CONCLUSION: Very large heterogeneous soft tissue mass along the right side of the face with gross destruction involving most of the right mandible. The mass contains amorphous calcifications and appears to involve the right sternocleidomastoid muscle. The mass appears to extend into the oral cavity with diffuse enlargement of the right tonsillar pillar. Neoplastic disease in the primary consideration. Niall Corrales MD Multiplanar Reconstruction 04/02/16 0000 Signed Impressions: Service Date/Time: Saturday, April 02, 2016 11:54 - CONCLUSION: 3-D reconstructive images demonstrating destruction involving most the right side of the mandible. Niall Corrales MD Head CT 04/02/16 0000 Signed Impressions: Service Date/Time: Saturday, April 02, 2016 11:54 - CONCLUSION: 1. Unremarkable CT scan of the brain 2. Large abnormal soft tissue mass with calcifications along the right side of the face. Niall Corrales MD Procedures * 04/03/16 - PEG placement * 04/03/16 - Biopsy of facial mass . 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 (2) Pain 0-10 Scale: 3 Comment: secondary to burden of disease. Pertinent Non-Medical Issues Psychosocial: Spiritual: Legal: Ethical issues impacting care: Important Contacts Brother Vish Nunn . . Prognosis Mr. Ribera is a 35 y/o male with no significant prior medical history who was admitted on 04/02/16 for treatment of facial mass. 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 Not a surgical candidate. Appears he has limited treatment options secondary to clinical condition, palliative radiation being considered. Patient's prognosis is very poor secondary to advanced cancer, profound physical deconditioning, and malnutrition. Patient is at high risk for further decline, additional complications and . . Code Status: No Code Plan * HCS completed. Patient designated his brother Vish Nunn as healthcare surrogate. * CODE STATUS: NO CODE. * GOALS OF CARE: 04/21/16 - Goal is to continue with current treatment plan for symptom management/improve quality of live. Brother verbalized understanding that pt's condition is terminal and not curable. They wish to continue current plan to include palliative radiation and chemotherapy as tolerated. * SYMPTOMS: ==Oral pain, secondary to burden of disease. Lortab and Morphine available as needed. ==Debility: secondary to burden of disease and malnutrition. Progressive over the past 6 months. Peg tube in place with ongoing feeding. * Palliative care contact information provided to patient and brother. * Palliative care will continue to f/u with patient and family as needed for further clarification of goals and for emotional support. . Time Spent Total Floor Time (mins): 40 (Total time to include review of medical records, physical exam and conversation with patient and brother. ) Attestation To help prompt me to consider important information that might be impacting today's encounter and assessment, information from prior notes written by myself or my colleagues may have been "brought forward" into today's note. My signature on this note, however, is an attestation that I personally performed the exam, history, and/or decision-making noted today, and, unless otherwise indicated, the interactions with patient, family, and staff as well as the review of records all occurred today. I also attest that the listed assessment and stated plan reflect my best clinical judgment today based on the combination of historical information, prior notes, and today's exam/ interactions. When time spent is documented, it refers only to time spent today by the signer, or if indicated, combined time spent today by collaborating physician/nurse practitioner. Manda De Anda Apr 21, 2016 14:31
[2016-04-21] MEDS ORDERED: diphenhydrAMINE HCL ELIXIR 12.5 MG/5 ML CUP PEG ONE (15:00)
[2016-04-21 16:00] VITALS: BP 146/96; PULSE 102; RESP 16; TEMP 98.1; O2SAT 99
[2016-04-21] MEDS: ENOXAPARIN SODIUM 30 MG/0.3 ML SYRINGE SQ SCH (16:52)
[2016-04-21 20:00] VITALS: BP 89/55; PULSE 96; RESP 16; TEMP 98.6; O2SAT 98
[2016-04-22] VITALS: BP 88/52; PULSE 104; RESP 17; TEMP 96.8; O2SAT 96
[2016-04-22] MEDS: FREE WATER G-TUBE SCH ×4 (00:37→18:00)
[2016-04-22] MEDS: metroNIDAZOLE 500 MG INJ 100 ML IV SCH ×5 (02:20→21:49)
[2016-04-22 04:00] VITALS: BP 89/53; PULSE 94; RESP 18; TEMP 95.7; O2SAT 97
[2016-04-22] MEDS: METOCLOPRAMIDE HCL SYRUP 10 MG/10 ML UDC G-TUBE SCH ×4 (05:51→21:41)
[2016-04-22] MEDS: ACETAMINOPHEN 325MG/HYDROcodone 7.5MG/15ML UDC PO PRN ×2 (07:51→16:52)
[2016-04-22 08:00] VITALS: BP 96/45; PULSE 90; RESP 16; TEMP 98.4; O2SAT 98
[2016-04-22] MEDS: SODIUM CHLORIDE 0.9% FLUSH 5 ML FLUSH IVF SCH ×2 (09:00→23:30)
[2016-04-22] MEDS: POTASSIUM CL 40 MEQ/30 ML LIQ UDC NG SCH ×2 (09:18→21:41)
[2016-04-22] MEDS: POLYETHYLENE GLYCOL 17 GM PKG G-TUBE SCH (09:18)
[2016-04-22] MEDS: MAGNESIUM OXIDE 400 MG TAB GT SCH ×2 (09:18→23:30)
[2016-04-22] MEDS: DOCUSATE SODIUM 50 MG/SENNA 8.6 MG TAB G-TUBE SCH ×2 (09:19→21:42)
--- NOTE | 2016-04-22 11:37 | HHI.PR ---
Subjective Remarks Follow-up oropharyngeal cancer. BP slightly low this morning denies dizziness or weakness. States he had 2 bowel movements. Discussed with RN Objective Vitals Vital Signs Date Time Temp Pulse Resp B/P Pulse Ox O2 Delivery O2 Flow Rate FiO2 04/22/16 08:00 98.4 90 16 96/45 98 04/22/16 04:00 95.7 94 18 89/53 97 04/22/16 00:00 96.8 104 17 88/52 96 04/21/16 20:00 98.6 96 16 89/55 98 04/21/16 16:00 98.1 102 16 146/96 99 04/21/16 12:00 97.0 110 16 88/57 98 I/O 04/21/16 04/21/16 04/21/16 04/22/16 04/22/16 04/22/16 07:00 15:00 23:00 07:00 15:00 23:00 Intake Total 200 ml Balance 200 ml Other 200 ml # Voids 1 1 # Bowel Movements 0 0 Result Diagram: 04/21/1684504/21/1646 Objective Remarks GENERAL: in no acute distress HEENT; swollen right face- covered with clean dressing. CARDIOVASCULAR: Regular rate and rhythm RESPIRATORY: Clear to auscultation. Breath sounds equal bilaterally. No wheezes , rales, or rhonchi. GASTROINTESTINAL: Abdomen soft, non-tender, nondistended. Normal, active bowel sounds MUSCULOSKELETAL: Extremities without clubbing, cyanosis, or edema. NEURO: Awake and alert. Moving all extremities. Nonfocal Procedures central line placement PEG placement bone biopsy teeth extraction A/P Assessment and Plan - squamous cell carcinoma of the oropharynx CT of the face with very large heterogeneous soft tissue mass along the right side of the face with gross destruction involving most of the right mandible. The mass contains amorphous calcifications and appears to involve the right sternocleidomastoid muscle. The mass appears to extend into the oral cavity with diffuse enlargement of the right tonsillar pillar. CT of the chest and abdomen with possible lung/ liver mets. 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 continue with pain control. general and facial surgery following. -sepsis with possible right facial wound and central line as the source-central line discontinued- fever has recurred one bottle of blood cultures with pseudomonas stutzeri - s/p IV Zosyn total 2 weeks end date April 20- repeated blood cultures 2/5 negative so far- will repeat bcx again with next febrile episode from central line. Negative CXR. Negative UA. Fever could also be from tumor. Empiric Flagyl cover anaerobic infection. Improving fever curve Leukocytosis. Stable Sinus tachycardia. EKG tracing interpreted by me with sinus tachycardia. This is secondary to sepsis and fever. TSH within normal limits Could also be from anxiety -acute kidney injury/ hyponatremia due to dehydration-- improved - will monitor -hypercalcemia- received a dose of aredia-resolved- will continue to monitor. -anemia- s/p PRBC transfusion- will monitor H/H- -hypokalemia/hypomagnesemia;replaced. -severe malnutrition- s/p PEG placement-started on tube feeding - boot turner consulted. Patient with intolerance likely contributed by constipation. Continue Reglan and monitor response. We'll decrease tube feeding -Constipation. Now stooling continue Clara-Colace. Monitor hemorrhoidal bleeding -DVT prophylaxis with lovenox and consider discontinuation if worsening rectal bleeding -DNR status palliative care following. Discharge Planning No payor source for chemotherapy and radiation treatment. Per caser shoe parts, patient to remain in-house to complete treatment. Poor prognosis Vish Allen MD Apr 22, 2016 11:37
[2016-04-22 12:00] VITALS: BP 102/52; PULSE 94; RESP 16; TEMP 97.5; O2SAT 98
[2016-04-22 16:00] VITALS: BP 86/52; PULSE 100; RESP 18; TEMP 96.9; O2SAT 98
[2016-04-22] MEDS: ENOXAPARIN SODIUM 30 MG/0.3 ML SYRINGE SQ SCH (16:38)
[2016-04-22 20:00] VITALS: BP 97/56; PULSE 101; RESP 18; TEMP 96.2; O2SAT 98
[2016-04-23] VITALS (8 sets, daily range): BP systolic 92–116; BP diastolic 55–64; PULSE 101–120; RESP 12–17; TEMP 95.5–101.5; O2SAT 94–99
[2016-04-23] MEDS: FREE WATER G-TUBE SCH ×5 (00:06→23:45)
[2016-04-23] MEDS: ACETAMINOPHEN 325MG/HYDROcodone 7.5MG/15ML UDC PO PRN ×4 (00:26→23:35)
[2016-04-23] MEDS: metroNIDAZOLE 500 MG INJ 100 ML IV SCH ×4 (02:28→23:43)
[2016-04-23] MEDS: METOCLOPRAMIDE HCL SYRUP 10 MG/10 ML UDC G-TUBE SCH ×4 (05:33→23:44)
[2016-04-23] MEDS: DOCUSATE SODIUM 50 MG/SENNA 8.6 MG TAB G-TUBE SCH ×2 (08:13→23:44)
[2016-04-23] MEDS: POTASSIUM CL 40 MEQ/30 ML LIQ UDC NG SCH ×2 (08:13→23:45)
[2016-04-23] MEDS: MAGNESIUM OXIDE 400 MG TAB GT SCH ×2 (08:13→23:44)
[2016-04-23] MEDS: POLYETHYLENE GLYCOL 17 GM PKG G-TUBE SCH (08:14)
[2016-04-23] MEDS: ACETAMINOPHEN 325 MG TAB PO PRN (08:14)
--- NOTE | 2016-04-23 09:20 | HHI.PR ---
Subjective Remarks Follow-up oropharyngeal cancer. Tmax 101. 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 Complained of slight nausea and right mid abdominal discomfort. No cough, shortness of breath, UTI symptoms. He had loose stools 2 days ago. Seen with brother. Discussed with RN Objective Vitals Vital Signs Date Time Temp Pulse Resp B/P Pulse Ox O2 Delivery O2 Flow Rate FiO2 04/23/16 08:00 101.5 120 12 110/61 94 04/23/16 04:00 95.5 101 17 99/55 98 04/23/16 00:00 95.8 105 17 116/56 97 04/22/16 20:00 96.2 101 18 97/56 98 04/22/16 16:00 96.9 100 18 86/52 98 04/22/16 12:00 97.5 94 16 102/52 98 I/O 04/22/16 04/22/16 04/22/16 04/23/16 04/23/16 04/23/16 06:59 14:59 22:59 06:59 14:59 22:59 Intake Total 281 ml 100 ml 120 ml 284 ml Output Total 180 ml 300 ml Balance 281 ml 100 ml -60 ml -16 ml Intake Oral 100 ml 120 ml IV Total 141 ml Tube Feeding 140 ml 284 ml Output Urine Total 180 ml 300 ml # Voids 2 1 2 Result Diagram: 04/21/1646 04/21/16 0846 Objective Remarks GENERAL: in no acute distress HEENT; swollen right face with erythema extending to right neck- covered with clean dressing. CARDIOVASCULAR: Regular rate and rhythm RESPIRATORY: Clear to auscultation. Breath sounds equal bilaterally. No wheezes , rales, or rhonchi. GASTROINTESTINAL: Abdomen soft, non-tender, nondistended. Normal, active bowel sounds MUSCULOSKELETAL: Extremities without clubbing, cyanosis, or edema. NEURO: Awake and alert. Moving all extremities. Nonfocal Procedures central line placement PEG placement bone biopsy teeth extraction A/P Assessment and Plan - squamous cell carcinoma of the oropharynx CT of the face with very large heterogeneous soft tissue mass along the right side of the face with gross destruction involving most of the right mandible. The mass contains amorphous calcifications and appears to involve the right sternocleidomastoid muscle. The mass appears to extend into the oral cavity with diffuse enlargement of the right tonsillar pillar. CT of the chest and abdomen with possible lung/ liver mets. 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 continue with pain control. general and facial surgery following. -sepsis with possible right facial wound and central line as the source-central line discontinued- one bottle of blood cultures with pseudomonas stutzeri - s/p IV Zosyn total 2 weeks end date April 20- repeated blood cultures 04/09 , 04/19 to me 04/21 negative so far. Negative CXR. Negative UA. Fever could also be from tumor. Continue Empiric Flagyl cover anaerobic infection. Leukocytosis. Stable Sinus tachycardia. EKG tracing interpreted by me with sinus tachycardia. This is secondary to sepsis and fever. TSH within normal limits Could also be from anxiety -acute kidney injury/ hyponatremia due to dehydration-- improved - will monitor -hypercalcemia- received a dose of aredia-resolved- will continue to monitor. -anemia- s/p PRBC transfusion- will monitor H/H- -hypokalemia/hypomagnesemia;replaced. -severe malnutrition- s/p PEG placement-started on tube feeding - wax specialist consulted. Patient with intolerance likely contributed by constipation. Continue Reglan and monitor response. We'll decrease tube feeding discussed with RN not to hold tube feeding unless residual over 400 mL. Dietitian consult for bolus tube feeding -Constipation. Now stooling continue Clara-Colace. Monitor hemorrhoidal bleeding -DVT prophylaxis with lovenox and consider discontinuation if worsening rectal bleeding -DNR status palliative care following. Discharge Planning No payor source for chemotherapy and radiation treatment. Per case worker, patient to remain in-house to complete treatment. Poor prognosis Vish Allen MD Apr 23, 2016 09:20
--- NOTE | 2016-04-23 10:04 | PD.ONC.PN ---
Subjective Subjective Remarks Tmax 101.5 overnight. patient has been very tired since receiving chemo on Sunday. He has some pain in his right shoulder, which is chronic. No other complaints. Objective Data Date Time Temp Pulse Resp B/P Pulse Ox O2 Delivery O2 Flow Rate FiO2 04/23/16 08:00 101.5 120 12 110/61 94 04/23/16 04:00 95.5 101 17 99/55 98 04/23/16 00:00 95.8 105 17 116/56 97 04/22/16 20:00 96.2 101 18 97/56 98 04/22/16 16:00 96.9 100 18 86/52 98 04/22/16 12:00 97.5 94 16 102/52 98 04/23/16 04/23/16 04/23/16 07:00 15:00 23:00 Intake Total 120 ml 284 ml Output Total 180 ml 300 ml Balance -60 ml -16 ml Result Diagram: 04/21/16 0846 04/21/16 0846 Culture Results Microbiology Date/Time Procedure Status Source Growth 04/21/16 08:46 Aerobic Blood Culture - Preliminary Resulted Blood Peripheral NO GROWTH IN 1 DAY 04/21/16 08:46 Anaerobic Blood Culture - Preliminary Resulted Blood Peripheral NO GROWTH IN 1 DAY 04/21/16 08:51 Aerobic Blood Culture - Preliminary Resulted Blood Peripheral NO GROWTH IN 1 DAY 04/21/16 08:51 Anaerobic Blood Culture - Preliminary Resulted Blood Peripheral NO GROWTH IN 1 DAY Administered Medications Medications (Trade) Dose Ordered Sig/Sara Route PRN Reason Start Time Stop Time Status Last Admin Dose Admin Ondansetron HCl (Zofran Inj) 4 mg Q6H PRN IV PUSH NAUSEA 04/02/16 01:45 04/02/16 02:38 IV Flush (NS Flush) 2 ml UNSCH PRN IVF FLUSH AFTER USING IV ACCESS 04/02/16 08:15 04/17/16 05:08 IV Flush (NS Flush) 2 ml BID IVF 04/02/16 09:00 04/22/16 23:30 Diphenhydramine HCl (Benadryl) 25 mg Q6H PRN PO ITCHING 04/02/16 09:00 04/12/16 04:30 Enoxaparin Sodium (Lovenox Inj) 30 mg Q24H SQ 04/04/16 15:30 04/22/16 16:38 Water (Free Water) VOLUME: 200 ML Q6HR G-TUBE 04/04/16 08:45 04/23/16 05:34 Acetaminophen (Tylenol) 650 mg Q4H PRN PO FEVER OVER 101.0 04/07/16 01:45 04/23/16 08:14 Potassium Chloride (KCl 40 Meq/30 ml Liq) 40 meq Q12HR NG 04/08/16 12:00 04/23/16 08:13 Acetaminophen/ Hydrocodone Bitart (Hycet 325-7.5 Mg Liq) 15 ml Q3HR PRN PO pain1-9 04/08/16 14:45 04/23/16 00:26 Senna/Docusate Sodium (Clara-Colace) 2 tab BID G-TUBE 04/15/16 21:00 04/23/16 08:13 Padimate O (Chapstick) 1 applic UNSCH PRN TOP DISCOMFORT 04/17/16 10:00 04/18/16 00:01 Magnesium Oxide (Mag-Ox) 800 mg Q12HR GT 04/17/16 21:00 04/23/16 08:13 Metoclopramide HCl 10 mg 10 mg ACHS G-TUBE 04/19/16 16:00 04/23/16 05:33 Metronidazole (Flagyl 500 Mg Inj) 100 ml @ 100 mls/hr Q6H IV 04/20/16 14:00 05/04/16 13:59 04/23/16 02:28 Polyethylene Glycol (Miralax) 17 gm DAILY G-TUBE 04/22/16 09:00 04/23/16 08:14 Objective Remarks GENERAL: Young man sitting in chair next to bed. large tumor right face. SKIN: warm and dry. HEAD: Normocephalic. EYES: No injection or drainage. NECK: tumor in right neck/face with bandages over top CARDIOVASCULAR: Regular rate and rhythm RESPIRATORY: Breath sounds equal bilaterally. No accessory muscle use. GASTROINTESTINAL: Abdomen soft, non-tender. G-tube clamped. EXTREMITIES: No cyanosis. NEUROLOGICAL: Awake and alert. able to move extremities. Assessment/Plan Assessment 35y/o male with invasive squamous cell carcinoma. 04/12/16--XRT started; twice daily. 04/13/16: weekly carbo/taxol dose 1 given 04/21/16:continue XRT. weekly carbo/taxol dose 2 given Plan 1. fatigue is likely due to radiation effect, although he may be developing another infection as he had fever last night 2. blood cultures today + antibiotics. 3. will start IVF 4. encourage rest. 5. will check u/a and chest x-ray Attending Statement The exam, history, and the medical decision-making described in the above note were completed with the assistance of the mid-level provider. I reviewed and agree with the findings presented. I attest that I had a [id number] encounter with the patient on the same day, and personally performed and documented my assessment and findings in the medical record. Had fever. More Fatigue. Has been on flagyl. Add cefepime. repeat CXR, U/s and culture. Continue supportive care. Sirisha Cotton Apr 23, 2016 10:04 Javier Hobson MD Apr 23, 2016 11:28
[2016-04-23] MEDS: SODIUM CHLORIDE 0.9% FLUSH 5 ML FLUSH IVF SCH ×2 (10:51→21:00)
[2016-04-23] MEDS: SODIUM CHLOR 0.9% 1000 ML INJ 1,000 ML IV SCH ×2 (10:51→23:45)
[2016-04-23] MEDS: CEFEPIME INJ 2,000 MG in SODIUM CHLORIDE 0.9% INJ 100 ML IV SCH ×2 (10:58→23:44)
[2016-04-23 11:27] LABS: AUTOMATED NEUTROPHIL # 15.6 TH/MM3 (1.8-7.7); BASOPHIL # 0.1 TH/MM3 (0-0.2); BASOPHIL % 0.4 % (0.0-2.0); EOSINOPHIL % 0.2 % (0.0-4.0); HEMATOCRIT 23.8 % (39.0-51.0); HEMO FLAGS DIFF FINAL; LYMPH % 1.3 % (9.0-44.0); LYMPHOCYTE # 0.2 TH/MM3 (1.0-4.8); MEAN CELL VOLUME 88.2 FL (80.0-100.0); MEAN CORPUSCULAR HEMOGLOBIN 29.8 PG (27.0-34.0); MEAN CORPUSCULAR HGB CONC 33.8 % (32.0-36.0); MONO % 3.8 % (0.0-8.0); NEUT % 94.3 % (16.0-70.0); PLATELET COUNT 591 TH/MM3 (150-450); RED CELL DISTRIBUTION WIDTH 15.7 % (11.6-17.2); WHITE BLOOD COUNT 16.6 TH/MM3 (4.0-11.0)
[2016-04-23 11:41] LABS: ALKALINE PHOSPHATASE 175 U/L (45-117); ALT (GPT) 15 U/L (12-78); ANION GAP 7 MEQ/L (5-15); AST (GOT) 15 U/L (15-37); BICARBONATE 27.2 MEQ/L (21.0-32.0); BLOOD UREA NITROGEN 10 MG/DL (7-18); CHLORIDE 103 MEQ/L (98-107); GLOMERULAR FILTRATION RATE 243 ML/MIN (>89); POTASSIUM 4.2 MEQ/L (3.5-5.1); SODIUM (NA) 137 MEQ/L (136-145); TOTAL BILIRUBIN ADULT 0.3 MG/DL (0.2-1.0)
--- NOTE | 2016-04-23 11:52 | RADRPT ---
EXAM DATE/TIME: 04/23/2016 11:08 [facility] COMPARISON: CHEST SINGLE AP, April 17, 2016, 14:18. INDICATIONS : Fever. MEDICAL HISTORY : Ear, nose, and throat carcinoma. SURGICAL HISTORY : None. ENCOUNTER: Subsequent ACUITY: 2 weeks PAIN SCORE: Non-responsive. LOCATION: Bilateral chest FINDINGS: Single AP view of the chest. The lungs are clear. Cardiomediastinal silhouette within normal limits. No evidence of pleural effusion or pneumothorax. CONCLUSION: No acute cardiopulmonary disease identified. Prabhu Jang MD on April 23, 2016 at 11:49 Board Certified Radiologist. This report was verified electronically.
[2016-04-23] MEDS: ENOXAPARIN SODIUM 30 MG/0.3 ML SYRINGE SQ SCH (15:34)
[2016-04-23 16:17] LABS: BLOOD, URINE NEG (NEG); GLUCOSE,URINE NEG (NEG); KETONE, URINE NEG (NEG); MUCUS URINE FEW /lpf (OCC); NITRITE,URINE NEG (NEG); PH, URINE 6.5 (5.0-8.5); URINE COLOR YELLOW (YELLW/STRAW)
[2016-04-23 16:19] LABS: COMMENT (UR) CULT NOT INDICATED; CULTURE IF INDICATED CULT NOT INDICATED
[2016-04-24] VITALS (7 sets, daily range): BP systolic 81–110; BP diastolic 57–69; PULSE 96–137; RESP 16–20; TEMP 96.1–101.1; O2SAT 97–99
[2016-04-24] MEDS: metroNIDAZOLE 500 MG INJ 100 ML IV SCH ×4 (02:00→19:55)
[2016-04-24] MEDS: FREE WATER G-TUBE SCH ×4 (06:00→22:15)
[2016-04-24] MEDS: METOCLOPRAMIDE HCL SYRUP 10 MG/10 ML UDC G-TUBE SCH ×4 (06:52→22:05)
[2016-04-24] MEDS: ACETAMINOPHEN 325 MG TAB PO PRN (06:53)
[2016-04-24 08:27] LABS: AUTOMATED NEUTROPHIL # 15.1 TH/MM3 (1.8-7.7); BASOPHIL % 0.1 % (0.0-2.0); EOSINOPHIL # 0.1 TH/MM3 (0-0.4); EOSINOPHIL % 0.8 % (0.0-4.0); HEMATOCRIT 25.2 % (39.0-51.0); HEMO FLAGS DIFF FINAL; LYMPH % 2.2 % (9.0-44.0); LYMPHOCYTE # 0.4 TH/MM3 (1.0-4.8); MEAN CELL VOLUME 89.4 FL (80.0-100.0); MEAN CORPUSCULAR HEMOGLOBIN 29.5 PG (27.0-34.0); MONO % 3.7 % (0.0-8.0); NEUT % 93.2 % (16.0-70.0); PLATELET COUNT 541 TH/MM3 (150-450); RED BLOOD COUNT 2.82 MIL/MM3 (4.50-5.90); RED CELL DISTRIBUTION WIDTH 15.2 % (11.6-17.2); WHITE BLOOD COUNT 16.2 TH/MM3 (4.0-11.0)
[2016-04-24 08:31] LABS: INTERNATIONAL NORMALIZED RATIO 1.5 RATIO; PROTHROMBIN TIME - PATIENT 16.3 SEC (9.8-11.6)
[2016-04-24 09:22] LABS: ALKALINE PHOSPHATASE 174 U/L (45-117); ALT (GPT) 15 U/L (12-78); ANION GAP 10 MEQ/L (5-15); AST (GOT) 18 U/L (15-37); BICARBONATE 25.4 MEQ/L (21.0-32.0); BLOOD UREA NITROGEN 7 MG/DL (7-18); CHLORIDE 100 MEQ/L (98-107); GLOMERULAR FILTRATION RATE 193 ML/MIN (>89); MAGNESIUM 1.5 MG/DL (1.5-2.5); POTASSIUM 3.4 MEQ/L (3.5-5.1); SODIUM (NA) 135 MEQ/L (136-145); TOTAL BILIRUBIN ADULT 0.3 MG/DL (0.2-1.0)
[2016-04-24] MEDS: MAGNESIUM OXIDE 400 MG TAB GT SCH ×2 (10:43→22:05)
[2016-04-24] MEDS: ACETAMINOPHEN 325MG/HYDROcodone 7.5MG/15ML UDC PO PRN ×2 (10:43→19:49)
[2016-04-24] MEDS: POLYETHYLENE GLYCOL 17 GM PKG G-TUBE SCH (10:43)
[2016-04-24] MEDS: DOCUSATE SODIUM 50 MG/SENNA 8.6 MG TAB G-TUBE SCH ×2 (10:43→22:06)
[2016-04-24] MEDS: SODIUM CHLORIDE 0.9% FLUSH 5 ML FLUSH IVF SCH ×2 (10:44→22:06)
[2016-04-24] MEDS: CEFEPIME INJ 2,000 MG in SODIUM CHLORIDE 0.9% INJ 100 ML IV SCH ×2 (10:44→22:04)
[2016-04-24] MEDS: POTASSIUM CL 40 MEQ/30 ML LIQ UDC NG SCH ×2 (10:45→22:04)
[2016-04-24] MEDS: SODIUM CHLOR 0.9% 1000 ML INJ 1,000 ML IV SCH ×2 (10:45→22:06)
--- NOTE | 2016-04-24 10:54 | PD.ONC.PN ---
Subjective Subjective Remarks Tmax 101.1 overnight. Pt resting in bed in no distress. Brother at bedside. Per RN he has just come back from radiation. Minimal bleeding to wound with dressing changes. Objective Data Date Time Temp Pulse Resp B/P Pulse Ox O2 Delivery O2 Flow Rate FiO2 04/24/16 08:00 96.1 96 16 85/61 98 04/24/16 05:00 101.1 114 17 110/69 98 04/24/16 00:35 16 04/24/16 00:00 101.1 110 17 99/63 99 04/23/16 21:00 101 04/23/16 20:00 99.3 112 16 92/57 99 04/23/16 16:00 98.2 120 14 103/64 98 04/23/16 12:00 99.0 112 12 106/61 98 Result Diagram: 04/24/16 0730 04/24/16 0730 Laboratory Results Laboratory Tests Test 04/23/16 04/24/16 15:15 07:30 Urine Color YELLOW Urine Turbidity CLEAR Urine pH 6.5 Urine Specific [place] 1.012 Urine Protein NEG mg/dL Urine Glucose (UA) NEG mg/dL Urine Ketones NEG mg/dL Urine Occult Blood NEG Urine Nitrite NEG Urine Bilirubin NEG Urine Urobilinogen LESS THAN 2.0 MG/DL Urine Leukocyte Esterase NEG Urine WBC LESS THAN 1 /hpf Urine Mucus FEW /lpf Microscopic Urinalysis Comment CULT NOT INDICATED White Blood Count 16.2 TH/MM3 Red Blood Count 2.82 MIL/MM3 Hemoglobin 8.3 GM/DL Hematocrit 25.2 % Mean Corpuscular Volume 89.4 FL Mean Corpuscular Hemoglobin 29.5 PG Mean Corpuscular Hemoglobin 33.0 % Concent Red Cell Distribution Width 15.2 % Platelet Count 541 TH/MM3 Mean Platelet Volume 6.3 FL Neutrophils (%) (Auto) 93.2 % Lymphocytes (%) (Auto) 2.2 % Monocytes (%) (Auto) 3.7 % Eosinophils (%) (Auto) 0.8 % Basophils (%) (Auto) 0.1 % Neutrophils # (Auto) 15.1 TH/MM3 Lymphocytes # (Auto) 0.4 TH/MM3 Monocytes # (Auto) 0.6 TH/MM3 Eosinophils # (Auto) 0.1 TH/MM3 Basophils # (Auto) 0.0 TH/MM3 CBC Comment DIFF FINAL Differential Comment Prothrombin Time 16.3 SEC Prothromb Time International 1.5 RATIO Ratio Sodium Level 135 MEQ/L Potassium Level 3.4 MEQ/L Chloride Level 100 MEQ/L Carbon Dioxide Level 25.4 MEQ/L Anion Gap 10 MEQ/L Blood Urea Nitrogen 7 MG/DL Creatinine 0.49 MG/DL Estimat Glomerular Filtration 193 ML/MIN Rate Random Glucose 111 MG/DL Calcium Level 8.1 MG/DL Phosphorus Level 1.6 MG/DL Magnesium Level 1.5 MG/DL Total Bilirubin 0.3 MG/DL Aspartate Amino Transf 18 U/L (AST/SGOT) Alanine Aminotransferase 15 U/L (ALT/SGPT) Alkaline Phosphatase 174 U/L Total Protein 5.8 GM/DL Albumin 1.5 GM/DL Triglycerides Level 116 MG/DL Culture Results Microbiology Date/Time Procedure Status Source Growth 04/23/16 10:20 Aerobic Blood Culture Received Blood Line Pending 04/23/16 10:20 Anaerobic Blood Culture Received Blood Line Pending 04/23/16 10:29 Aerobic Blood Culture Received Blood Peripheral Pending 04/23/16 10:29 Anaerobic Blood Culture Received Blood Peripheral Pending Administered Medications Medications (Trade) Dose Ordered Sig/Sara Route PRN Reason Start Time Stop Time Status Last Admin Dose Admin Ondansetron HCl (Zofran Inj) 4 mg Q6H PRN IV PUSH NAUSEA 04/02/16 01:45 04/02/16 02:38 IV Flush (NS Flush) 2 ml UNSCH PRN IVF FLUSH AFTER USING IV ACCESS 04/02/16 08:15 04/17/16 05:08 IV Flush (NS Flush) 2 ml BID IVF 04/02/16 09:00 04/23/16 10:51 Diphenhydramine HCl (Benadryl) 25 mg Q6H PRN PO ITCHING 04/02/16 09:00 04/12/16 04:30 Enoxaparin Sodium (Lovenox Inj) 30 mg Q24H SQ 04/04/16 15:30 04/23/16 15:34 Water (Free Water) VOLUME: 200 ML Q6HR G-TUBE 04/04/16 08:45 04/24/16 06:00 Acetaminophen (Tylenol) 650 mg Q4H PRN PO FEVER OVER 101.0 04/07/16 01:45 04/24/16 06:53 Potassium Chloride (KCl 40 Meq/30 ml Liq) 40 meq Q12HR NG 04/08/16 12:00 04/23/16 23:45 Acetaminophen/ Hydrocodone Bitart (Hycet 325-7.5 Mg Liq) 15 ml Q3HR PRN PO pain1-9 04/08/16 14:45 04/23/16 23:35 Senna/Docusate Sodium (Clara-Colace) 2 tab BID G-TUBE 04/15/16 21:00 04/23/16 23:44 Padimate O (Chapstick) 1 applic UNSCH PRN TOP DISCOMFORT 04/17/16 10:00 04/18/16 00:01 Magnesium Oxide (Mag-Ox) 800 mg Q12HR GT 04/17/16 21:00 04/23/16 23:44 Metoclopramide HCl 10 mg 10 mg ACHS G-TUBE 04/19/16 16:00 04/24/16 06:52 Metronidazole (Flagyl 500 Mg Inj) 100 ml @ 100 mls/hr Q6H IV 04/20/16 14:00 05/04/16 13:59 04/24/16 02:00 Polyethylene Glycol 17 gm 17 gm DAILY G-TUBE 04/22/16 09:00 04/23/16 08:14 Cefepime HCl 2000 mg/Sodium Chloride 100 ml @ 200 mls/hr Q12H IV 04/23/16 09:00 04/23/16 23:44 Sodium Chloride (NS 1000 ml Inj) 1,000 ml @ 84 mls/hr [id number] IV 04/23/16 10:00 04/23/16 23:45 Objective Remarks GENERAL: Thin, younger male sitting in bed in no distress. SKIN: Warm and dry. EYES: No injection or drainage. NECK: Lg disfiguring tumor covering R side of face and neck. CARDIOVASCULAR: Regular rate and rhythm RESPIRATORY: Lungs clear anteriorly. GASTROINTESTINAL: Abdomen soft, non-tender, nondistended. EXTREMITIES: No edema. MUSCULOSKELETAL: Generalized weakness. NEUROLOGICAL: No obvious focal deficit. Awake and alert. Assessment/Plan Assessment 35y/o male with invasive squamous cell carcinoma. 04/12/16--XRT started; twice daily. 04/13/16: weekly carbo/taxol dose 1 given 04/21/16: weekly carbo/taxol dose 2 given Plan 1) We will plan to continue twice daily XRT with once weekly chemo. 2) Labs stable with current regimen; will continue to monitor. 3) He has continued fatigue with radiation. He may benefit from PT to work with him. Will consult. Amy Burris Apr 24, 2016 10:54
--- NOTE | 2016-04-24 11:31 | HHI.PR ---
Subjective Remarks Follow-up fever. MAXIMUM TEMPERATURE 101. Today patient has no complaints. Started on cefepime yesterday. Negative chest x-ray and urinalysis. Potassium 3.4 and phosphorus 1.6 replacement ordered. Discussed with RN. Seen with brother Objective Vitals Vital Signs Date Time Temp Pulse Resp B/P Pulse Ox O2 Delivery O2 Flow Rate FiO2 04/24/16 08:00 96.1 96 16 85/61 98 04/24/16 05:00 101.1 114 17 110/69 98 04/24/16 00:35 16 04/24/16 00:00 101.1 110 17 99/63 99 04/23/16 21:00 101 04/23/16 20:00 99.3 112 16 92/57 99 04/23/16 16:00 98.2 120 14 103/64 98 04/23/16 12:00 99.0 112 12 106/61 98 I/O 04/23/16 04/23/16 04/23/16 04/24/16 04/24/16 04/24/16 07:00 15:00 23:00 07:00 15:00 23:00 Intake Total 120 ml 1348 ml 0 ml Output Total 180 ml 450 ml Balance -60 ml 898 ml 0 ml Intake Oral 120 ml 120 ml 0 ml IV Total 404 ml Tube Feeding 424 ml Tube Irrigant 400 ml Output Urine Total 180 ml 450 ml # Voids 2 2 # Bowel Movements 0 0 Result Diagram: 04/24/1630 04/24/16 0730 Objective Remarks GENERAL: in no acute distress HEENT; swollen right face with erythema extending to right neck- covered with clean dressing. CARDIOVASCULAR: Regular rate and rhythm RESPIRATORY: Clear to auscultation. Breath sounds equal bilaterally. No wheezes , rales, or rhonchi. GASTROINTESTINAL: Abdomen soft, non-tender, nondistended. Normal, active bowel sounds MUSCULOSKELETAL: Extremities without clubbing, cyanosis, or edema. NEURO: Awake and alert. Moving all extremities. Nonfocal Procedures central line placement PEG placement bone biopsy teeth extraction A/P Assessment and Plan - squamous cell carcinoma of the oropharynx CT of the face with very large heterogeneous soft tissue mass along the right side of the face with gross destruction involving most of the right mandible. The mass contains amorphous calcifications and appears to involve the right sternocleidomastoid muscle. The mass appears to extend into the oral cavity with diffuse enlargement of the right tonsillar pillar. CT of the chest and abdomen with possible lung/ liver mets. 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 continue with pain control. general and facial surgery following. -sepsis with possible right facial wound and central line as the source-central line discontinued- one bottle of blood cultures with pseudomonas stutzeri - s/p IV Zosyn total 2 weeks end date April 20- repeated blood cultures 04/09 , 04/19 to me 04/21 negative so far. Negative CXR. Negative UA. Fever could also be from tumor. Continue Empiric Flagyl and cefepime for recurrent fevers. Follow up cultures Leukocytosis. Stable Sinus tachycardia. EKG tracing interpreted by me with sinus tachycardia. This is secondary to sepsis and fever. TSH within normal limits Could also be from anxiety -acute kidney injury/ hyponatremia due to dehydration-- improved - will monitor -hypercalcemia- received a dose of aredia-resolved- will continue to monitor. -anemia- s/p PRBC transfusion- will monitor H/H- -hypokalemia/hypomagnesemia/hypophosphatemia;replaced. -severe malnutrition- s/p PEG placement-started on tube feeding - machine stitcher consulted. Patient with intolerance likely contributed by constipation. Continue Reglan and monitor response. We'll decrease tube feeding discussed with RN not to hold tube feeding unless residual over 400 mL. Dietitian consult for bolus tube feeding -Constipation. Now stooling continue Clara-Colace. Monitor hemorrhoidal bleeding -DVT prophylaxis with lovenox and consider discontinuation if worsening rectal bleeding -DNR status palliative care following. Discharge Planning No payor source for chemotherapy and radiation treatment. Per wrapper caser, patient to remain in-house to complete treatment. Poor prognosis Vish Allen MD Apr 24, 2016 11:31
[2016-04-24] MEDS ORDERED: POTASSIUM PHOSPHATE INJ 15 MMOL in SODIUM CHLORIDE 0.9% INJ 150 ML IV ONE (12:00)
[2016-04-24] MEDS: POTASSIUM PHOSPHATE MONOBASIC 500 MG TAB PO SCH ×2 (15:01→22:05)
[2016-04-24] MEDS: ENOXAPARIN SODIUM 30 MG/0.3 ML SYRINGE SQ SCH (15:02)
[2016-04-24] MEDS: LACTOBACILLUS ACIDOPHILUS TAB PO SCH (16:31)
[2016-04-25 00:15] VITALS: BP 103/59; PULSE 115; RESP 18; TEMP 99; O2SAT 98
[2016-04-25] MEDS: metroNIDAZOLE 500 MG INJ 100 ML IV SCH ×4 (02:17→19:54)
[2016-04-25 04:30] VITALS: BP 105/57; PULSE 126; RESP 18; TEMP 100.6; O2SAT 97
[2016-04-25] MEDS: FREE WATER G-TUBE SCH ×4 (06:00→22:56)
[2016-04-25] MEDS: METOCLOPRAMIDE HCL SYRUP 10 MG/10 ML UDC G-TUBE SCH ×4 (06:27→22:42)
[2016-04-25] MEDS: SODIUM CHLORIDE 0.9% FLUSH 5 ML FLUSH IVF SCH ×2 (07:39→22:43)
[2016-04-25] MEDS: POLYETHYLENE GLYCOL 17 GM PKG G-TUBE SCH (07:39)
[2016-04-25] MEDS: DOCUSATE SODIUM 50 MG/SENNA 8.6 MG TAB G-TUBE SCH ×2 (07:39→20:07)
[2016-04-25 08:00] VITALS: BP 94/63; PULSE 117; RESP 18; TEMP 98.6; O2SAT 98
[2016-04-25] MEDS: POTASSIUM PHOSPHATE MONOBASIC 500 MG TAB PO SCH ×2 (08:06→22:43)
[2016-04-25] MEDS: LACTOBACILLUS ACIDOPHILUS TAB PO SCH ×3 (08:06→17:03)
[2016-04-25] MEDS: SODIUM CHLOR 0.9% 1000 ML INJ 1,000 ML IV SCH ×2 (08:07→19:54)
[2016-04-25] MEDS: POTASSIUM CL 40 MEQ/30 ML LIQ UDC NG SCH ×2 (08:07→22:42)
[2016-04-25] MEDS: MAGNESIUM OXIDE 400 MG TAB GT SCH ×2 (10:18→22:43)
[2016-04-25] MEDS: CEFEPIME INJ 2,000 MG in SODIUM CHLORIDE 0.9% INJ 100 ML IV SCH ×2 (10:19→22:42)
--- NOTE | 2016-04-25 10:46 | HHI.PR ---
Subjective Remarks Follow-up oropharyngeal cancer. Complains of fatigue and intermittent palpitations when he is active. Denies chest pain, shortness of breath, nausea and vomiting. Discussed with general surgery and RN Objective Vitals Vital Signs Date Time Temp Pulse Resp B/P Pulse Ox O2 Delivery O2 Flow Rate FiO2 04/25/16 08:00 98.6 117 18 94/63 98 04/25/16 04:30 100.6 126 18 105/57 97 04/25/16 00:15 99.0 115 18 103/59 98 04/24/16 22:05 112 04/24/16 20:30 99.9 137 18 92/57 97 04/24/16 16:00 99.5 107 20 103/61 99 04/24/16 12:00 96.7 115 20 81/58 98 I/O 04/24/16 04/24/16 04/24/16 04/25/16 04/25/16 04/25/16 07:00 15:00 23:00 07:00 15:00 23:00 Intake Total 1135 ml 2165 ml 440 ml Balance 1135 ml 2165 ml 440 ml IV Total 525 ml 1205 ml Tube Feeding 410 ml 500 ml 240 ml Tube Irrigant 200 ml 460 ml Other 200 ml # Voids 2 # Bowel Movements 1 Result Diagram: 04/24/16 0730 04/24/16 0730 Imaging Last Impressions Chest X-Ray 04/23/16 0000 Signed Impressions: Service Date/Time: Saturday, April 23, 2016 11:08 - CONCLUSION: No acute cardiopulmonary disease identified. Prabhu Jang MD Liver Ultrasound 04/12/16 0000 Signed Impressions: Service Date/Time: Tuesday, April 12, 2016 22:29 - CONCLUSION: 1. Solid indeterminate mass in the left lobe of the liver as well as a tiny cyst. An MRI of the abdomen with without contrast may be helpful for further assessment if felt clinically warranted. The possibility of a metastatic lesion is not excluded. 2. Cholelithiasis. 3. Bilateral pleural effusions are suspected sonographically. Chau Ward MD Chest CT 04/11/16 0000 Signed Impressions: Service Date/Time: Monday, April 11, 2016 14:09 - CONCLUSION: 1. Multiple small scattered noncalcified pulmonary nodules which are nonspecific but are of concern for early metastatic disease. 2. The known large tumor mass in the right side of the face and neck is partially visualized with destructive change involving the right side of the mandible. This extends into the right supraclavicular region. Please see soft tissue neck CT for further details. 3. Low attenuation lesion in the left lobe of the liver again noted. Holland Villegas MD Abdomen/Pelvis CT 04/11/16 Signed Impressions: Service Date/Time: Monday, April 11, 2016 14:09 - CONCLUSION: 1. 1.4 cm low-attenuation lesion left lobe of the liver of concern for a metastasis. There is a smaller more cystic appearing structure in the right lobe. 2. The remainder of the study is unremarkable except for a PEG tube in the stomach. Holland Villegas MD Upper Extremity Ultrasound 04/08/16 Signed Impressions: Service Date/Time: Friday, April 08, 2016 13:04 - CONCLUSION: No thrombus. Deshawn Michele MD Neck CT 04/02/16 Signed Impressions: Service Date/Time: Saturday, April 02, 2016 11:54 - CONCLUSION: Very large heterogeneous soft tissue mass along the right side of the face with gross destruction involving most of the right mandible. The mass contains amorphous calcifications and appears to involve the right sternocleidomastoid muscle. The mass appears to extend into the oral cavity with diffuse enlargement of the right tonsillar pillar. Neoplastic disease in the primary consideration. Niall Corrales MD Multiplanar Reconstruction 04/02/16 Signed Impressions: Service Date/Time: Saturday, April 02, 2016 11:54 - CONCLUSION: 3-D reconstructive images demonstrating destruction involving most the right side of the mandible. Niall Corrales MD Head CT 04/02/16 0000 Signed Impressions: Service Date/Time: Saturday, April 02, 2016 11:54 - CONCLUSION: 1. Unremarkable CT scan of the brain 2. Large abnormal soft tissue mass with calcifications along the right side of the face. Niall Corrales MD Objective Remarks GENERAL: in no acute distress HEENT; swollen right face with erythema extending to right neck- covered with clean dressing. CARDIOVASCULAR: Regular rate and rhythm RESPIRATORY: Clear to auscultation. Breath sounds equal bilaterally. No wheezes , rales, or rhonchi. GASTROINTESTINAL: Abdomen soft, non-tender, nondistended. Normal, active bowel sounds MUSCULOSKELETAL: Extremities without clubbing, cyanosis, or edema. NEURO: Awake and alert. Moving all extremities. Nonfocal Procedures central line placement PEG placement bone biopsy teeth extraction A/P Assessment and Plan - squamous cell carcinoma of the oropharynx CT of the face with very large heterogeneous soft tissue mass along the right side of the face with gross destruction involving most of the right mandible. The mass contains amorphous calcifications and appears to involve the right sternocleidomastoid muscle. The mass appears to extend into the oral cavity with diffuse enlargement of the right tonsillar pillar. CT of the chest and abdomen with possible lung/ liver mets. 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 continue with pain control. general and facial surgery following. -sepsis with possible right facial wound and central line as the source-central line discontinued- one bottle of blood cultures with pseudomonas stutzeri - s/p IV Zosyn total 2 weeks end date April 20- repeated blood cultures 04/09 , 04/19 to me 04/21 negative so far. Negative CXR. Negative UA. Fever could also be from tumor. Continue Empiric Flagyl April 20 and cefepime April 23 for recurrent fevers. Follow up cultures negative to date Leukocytosis. Stable Sinus tachycardia. EKG tracing interpreted by me with sinus tachycardia. This is secondary to sepsis and fever. TSH within normal limits Could also be from anxiety -acute kidney injury/ hyponatremia due to dehydration-- improved - will monitor -hypercalcemia- received a dose of aredia-resolved- will continue to monitor. -anemia- s/p PRBC transfusion- will monitor H/H- -hypokalemia/hypomagnesemia/hypophosphatemia;replaced. -severe malnutrition- s/p PEG placement-started on tube feeding - oim architect consulted. Patient with intolerance likely contributed by constipation. Continue Reglan and monitor response. We'll decrease tube feeding discussed with RN not to hold tube feeding unless residual over 400 mL. Switch bolus tube feeding -Constipation. Now stooling continue Clara-Colace. Monitor hemorrhoidal bleeding -DVT prophylaxis with lovenox and consider discontinuation if worsening rectal bleeding -DNR status palliative care following. Discharge Planning No payor source for chemotherapy and radiation treatment. Per nurse case management, patient to remain in-house to complete treatment. Poor prognosis Vish Allen MD Apr 25, 2016 10:46
[2016-04-25 12:00] VITALS: BP 94/63; PULSE 117; RESP 18; TEMP 98.6; O2SAT 98
[2016-04-25] MEDS: ACETAMINOPHEN 325MG/HYDROcodone 7.5MG/15ML UDC PO PRN (12:40)
[2016-04-25] MEDS: ENOXAPARIN SODIUM 30 MG/0.3 ML SYRINGE SQ SCH (14:30)
[2016-04-25 16:00] VITALS: BP 91/58; PULSE 110; RESP 18; TEMP 96.7; O2SAT 100
[2016-04-25 19:25] LABS: BLOOD, URINE NEG (NEG); COMMENT (UR) CULT NOT INDICATED; CULTURE IF INDICATED CULT NOT INDICATED; GLUCOSE,URINE TRACE mg/dL (NEG); KETONE, URINE NEG (NEG); NITRITE,URINE NEG (NEG); PH, URINE 6.5 (5.0-8.5); URINE COLOR YELLOW (YELLW/STRAW)
[2016-04-25 20:00] VITALS: BP 109/57; PULSE 120; RESP 18; TEMP 100.8; O2SAT 98
[2016-04-26] VITALS (7 sets, daily range): BP systolic 85–113; BP diastolic 51–58; PULSE 75–125; RESP 16–18; TEMP 96.1–101.4; O2SAT 96–99
[2016-04-26] MEDS: ACETAMINOPHEN 325MG/HYDROcodone 7.5MG/15ML UDC PO PRN ×2 (00:05→19:55)
[2016-04-26] MEDS: metroNIDAZOLE 500 MG INJ 100 ML IV SCH ×4 (01:48→19:20)
[2016-04-26] MEDS: METOCLOPRAMIDE HCL SYRUP 10 MG/10 ML UDC G-TUBE SCH ×4 (06:34→19:51)
[2016-04-26] MEDS: FREE WATER G-TUBE SCH ×4 (06:35→23:48)
[2016-04-26] MEDS: LACTOBACILLUS ACIDOPHILUS TAB PO SCH ×3 (08:49→18:00)
[2016-04-26] MEDS: MAGNESIUM OXIDE 400 MG TAB GT SCH ×2 (08:49→19:52)
[2016-04-26] MEDS: POTASSIUM PHOSPHATE MONOBASIC 500 MG TAB PO SCH ×2 (08:50→19:51)
[2016-04-26] MEDS: CEFEPIME INJ 2,000 MG in SODIUM CHLORIDE 0.9% INJ 100 ML IV SCH ×2 (08:51→23:58)
[2016-04-26] MEDS: POTASSIUM CL 40 MEQ/30 ML LIQ UDC NG SCH ×2 (08:51→19:51)
[2016-04-26] MEDS: POLYETHYLENE GLYCOL 17 GM PKG G-TUBE SCH (09:00)
[2016-04-26] MEDS: DOCUSATE SODIUM 50 MG/SENNA 8.6 MG TAB G-TUBE SCH ×2 (09:00→19:51)
[2016-04-26] MEDS: SODIUM CHLORIDE 0.9% FLUSH 5 ML FLUSH IVF SCH ×2 (09:15→19:52)
[2016-04-26 11:39] LABS: AUTOMATED NEUTROPHIL # 12.3 TH/MM3 (1.8-7.7); BASOPHIL % 0.1 % (0.0-2.0); EOSINOPHIL % 0.3 % (0.0-4.0); LYMPH % 1.3 % (9.0-44.0); LYMPHOCYTE # 0.2 TH/MM3 (1.0-4.8); MEAN CELL VOLUME 89.2 FL (80.0-100.0); MEAN CORPUSCULAR HEMOGLOBIN 29.5 PG (27.0-34.0); MEAN CORPUSCULAR HGB CONC 33.1 % (32.0-36.0); MONO % 5.8 % (0.0-8.0); NEUT % 92.5 % (16.0-70.0); PLATELET COUNT 379 TH/MM3 (150-450); RED CELL DISTRIBUTION WIDTH 15.4 % (11.6-17.2); WHITE BLOOD COUNT 13.2 TH/MM3 (4.0-11.0)
[2016-04-26 11:40] LABS: HEMO FLAGS DIFF FINAL
[2016-04-26 11:44] LABS: HEMATOCRIT 19.6 % (39.0-51.0)
[2016-04-26 12:06] LABS: BICARBONATE 25.9 MEQ/L (21.0-32.0); MAGNESIUM 1.4 MG/DL (1.5-2.5); POTASSIUM 4.1 MEQ/L (3.5-5.1)
[2016-04-26] MEDS: ACETAMINOPHEN 325 MG TAB PO PRN (12:22)
[2016-04-26] MEDS ORDERED: ACETAMINOPHEN 325 MG TAB PO PRN ×2 (13:00→18:45)
[2016-04-26] MEDS ORDERED: SODIUM CHLOR 0.9% 250 ML INJ 250 ML IV ONE (13:00)
[2016-04-26] MEDS ORDERED: diphenhydrAMINE HCL 25 MG CAP PO PRN ×2 (13:00→18:45)
--- NOTE | 2016-04-26 13:13 | HHI.PR ---
Subjective Remarks F/u low BP. No dizziness but complained of fever overnight. Utilized excellence consultant thru [employer]. Alex RN Objective Vitals Vital Signs Date Time Temp Pulse Resp B/P Pulse Ox O2 Delivery O2 Flow Rate FiO2 04/26/16 08:24 101.4 75 18 85/55 99 04/26/16 04:45 99.1 107 18 107/55 98 04/26/16 00:00 101.3 125 18 113/58 96 04/25/16 20:00 100.8 120 18 109/57 98 04/25/16 16:00 96.7 110 18 91/58 100 I/O 04/25/16 04/25/16 04/25/16 04/26/16 04/26/16 04/26/16 07:00 15:00 23:00 07:00 15:00 23:00 Intake Total 2165 ml 440 ml 1108 ml 1455 ml Balance 2165 ml 440 ml 1108 ml 1455 ml IV Total 1205 ml 668 ml 655 ml Tube Feeding 500 ml 240 ml 240 ml 480 ml Tube Irrigant 460 ml Other 200 ml 200 ml 320 ml # Voids 2 2 # Bowel Movements 1 1 Result Diagram: 04/26/16 1103 04/26/16 1103 Objective Remarks GENERAL: in no acute distress HEENT; swollen right face with erythema extending to right neck- covered with clean dressing. CARDIOVASCULAR: Regular rate and rhythm RESPIRATORY: Clear to auscultation. Breath sounds equal bilaterally. No wheezes , rales, or rhonchi. GASTROINTESTINAL: Abdomen soft, non-tender, nondistended. Normal, active bowel sounds MUSCULOSKELETAL: Extremities without clubbing, cyanosis, or edema. NEURO: Awake and alert. Moving all extremities. Nonfocal Procedures central line placement PEG placement bone biopsy teeth extraction A/P Assessment and Plan -squamous cell carcinoma of the oropharynx CT of the face with very large heterogeneous soft tissue mass along the right side of the face with gross destruction involving most of the right mandible. The mass contains amorphous calcifications and appears to involve the right sternocleidomastoid muscle. The mass appears to extend into the oral cavity with diffuse enlargement of the right tonsillar pillar. CT of the chest and abdomen with possible lung/ liver mets. 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 continue with pain control. general and facial surgery following. -sepsis with possible right facial wound and central line as the source-central line discontinued- one bottle of blood cultures with pseudomonas stutzeri - s/p IV Zosyn total 2 weeks end date April 20- repeated blood cultures 04/09 , 04/19, 04/21 and . Negative CXR. Negative UA. Fever could also be from tumor. Continue Empiric Flagyl April 20 and cefepime April 23 for recurrent fevers. Follow up cultures negative to date Leukocytosis. Improving Sinus tachycardia. EKG tracing interpreted by me with sinus tachycardia. This is secondary to sepsis and fever as well as anemia. TSH within normal limits Could also be from anxiety -acute kidney injury/ hyponatremia due to dehydration-- improved - will monitor -hypercalcemia- received a dose of aredia-resolved- will continue to monitor. -anemia- s/p PRBC transfusion- will monitor H/H- worse today from chemo. transfuse to keep Hb > 8 -hypokalemia/hypomagnesemia/hypophosphatemia;replaced. -severe malnutrition- s/p PEG placement-started on tube feeding - [employer] consultant consulted. Patient with intolerance likely contributed by constipation. Continue Reglan and monitor response. We'll decrease tube feeding discussed with RN not to hold tube feeding unless residual over 400 mL. Switch bolus tube feeding which he is tolerating -Constipation. Now stooling continue Clara-Colace. Monitor hemorrhoidal bleeding -DVT prophylaxis with lovenox and consider discontinuation if worsening rectal bleeding -DNR status palliative care following. Discharge Planning No payor source for chemotherapy and radiation treatment. Per rifle case repairer, patient to remain in-house to complete treatment. Poor prognosis Vish Allen MD Apr 26, 2016 13:13
[2016-04-26] MEDS: ENOXAPARIN SODIUM 30 MG/0.3 ML SYRINGE SQ SCH (15:08)
[2016-04-26] MEDS ORDERED: diphenhydrAMINE HCL 50 MG/ML VIAL ONE (18:39)
[2016-04-26] MEDS ORDERED: diphenhydrAMINE HCL 50 MG/ML VIAL IV PRN (19:00)
[2016-04-26] MEDS: SODIUM CHLOR 0.9% 1000 ML INJ 1,000 ML IV SCH (19:55)
[2016-04-27 00:45] VITALS: BP 90/55; PULSE 109; RESP 18; TEMP 99.6; O2SAT 99
[2016-04-27] MEDS: metroNIDAZOLE 500 MG INJ 100 ML IV SCH ×4 (02:43→22:11)
[2016-04-27 02:47] VITALS: BP 96/58; PULSE 116; RESP 16; TEMP 99.6; O2SAT 99
[2016-04-27] MEDS: FREE WATER G-TUBE SCH ×4 (06:00→23:51)
[2016-04-27] MEDS: METOCLOPRAMIDE HCL SYRUP 10 MG/10 ML UDC G-TUBE SCH ×4 (06:39→22:07)
--- NOTE | 2016-04-27 07:46 | HHI.PR ---
Subjective Remarks Follow-up oropharyngeal cancer. Patient has no new complaints. Tolerated blood transfusion, tube feeding and radiation therapy. Seen with brother. Discussed with RN Objective Vitals Vital Signs Date Time Temp Pulse Resp B/P Pulse Ox O2 Delivery O2 Flow Rate FiO2 04/27/16 02:47 99.6 116 16 96/58 99 04/27/16 00:45 99.6 109 18 90/55 99 04/26/16 23:53 96.3 108 16 94/58 99 04/26/16 20:45 96.1 122 18 86/54 97 04/26/16 20:21 97.6 123 18 86/51 97 04/26/16 12:00 97.5 121 18 85/51 98 04/26/16 08:24 101.4 75 18 85/55 99 I/O 04/26/16 04/26/16 04/26/16 04/27/16 04/27/16 04/27/16 07:00 15:00 23:00 07:00 15:00 23:00 Intake Total 1455 ml 0 ml Output Total 400 ml Balance 1455 ml -400 ml Intake Oral 0 ml IV Total 655 ml Tube Feeding 480 ml Other 320 ml Output Urine Total 400 ml # Voids 3 2 # Bowel Movements 1 Result Diagram: 04/26/16 1103 04/26/16 1103 Objective Remarks GENERAL: in no acute distress HEENT; swollen right face with erythema extending to right neck- covered with clean dressing. CARDIOVASCULAR: Mildly tachycardic RESPIRATORY: Clear to auscultation. Breath sounds equal bilaterally. No wheezes , rales, or rhonchi. GASTROINTESTINAL: Abdomen soft, non-tender, nondistended. Normal, active bowel sounds MUSCULOSKELETAL: Extremities without clubbing, cyanosis, or edema. NEURO: Awake and alert. Moving all extremities. Nonfocal Procedures central line placement PEG placement bone biopsy teeth extraction A/P Assessment and Plan -squamous cell carcinoma of the oropharynx CT of the face with very large heterogeneous soft tissue mass along the right side of the face with gross destruction involving most of the right mandible. The mass contains amorphous calcifications and appears to involve the right sternocleidomastoid muscle. The mass appears to extend into the oral cavity with diffuse enlargement of the right tonsillar pillar. CT of the chest and abdomen with possible lung/ liver mets. 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 continue with pain control. general and facial surgery following. -sepsis with possible right facial wound and central line as the source-central line discontinued- one bottle of blood cultures with pseudomonas stutzeri - s/p IV Zosyn total 2 weeks end date April 20- repeated blood cultures 04/09 , 04/19, 04/21 and . Negative CXR. Negative UA. Fever could also be from tumor. Continue Empiric Flagyl April 20 and cefepime April 23 for recurrent fevers. Follow up cultures negative to date. Improving fever curve Leukocytosis. Slightly worse status post blood transfusion. Monitor Sinus tachycardia. EKG tracing interpreted by me with sinus tachycardia. This is secondary to sepsis and fever as well as anemia. TSH within normal limits Could also be from anxiety -acute kidney injury/ hyponatremia due to dehydration-- improved - will monitor -hypercalcemia- received a dose of aredia-resolved- will continue to monitor. -anemia- s/p PRBC transfusion- will monitor H/H- worse today from chemo. transfuse to keep Hb > 8 -hypokalemia/hypomagnesemia/hypophosphatemia;replaced. -severe malnutrition- s/p PEG placement-started on tube feeding - bindery supervisor consulted. Patient with intolerance likely contributed by constipation. Continue Reglan and monitor response. We'll decrease tube feeding discussed with RN not to hold tube feeding unless residual over 400 mL. Switch bolus tube feeding which he is tolerating -Constipation. Now stooling continue Clara-Colace. Monitor hemorrhoidal bleeding -DVT prophylaxis with lovenox and consider discontinuation if worsening rectal bleeding -DNR status palliative care following. Discharge Planning No payor source for chemotherapy and radiation treatment. Per case packer and sealer, patient to remain in-house to complete treatment. Poor prognosis Vish Allen MD Apr 27, 2016 07:46
[2016-04-27 08:00] VITALS: BP 126/62; PULSE 107; RESP 16; TEMP 97.4; O2SAT 98
[2016-04-27 08:44] LABS: BASOPHIL % 0.1 % (0.0-2.0); EOSINOPHIL # 0.1 TH/MM3 (0-0.4); EOSINOPHIL % 0.4 % (0.0-4.0); HEMATOCRIT 27.5 % (39.0-51.0); HEMO FLAGS DIFF FINAL; LYMPH % 1.8 % (9.0-44.0); LYMPHOCYTE # 0.3 TH/MM3 (1.0-4.8); MEAN CORPUSCULAR HEMOGLOBIN 29.8 PG (27.0-34.0); MEAN CORPUSCULAR HGB CONC 34.2 % (32.0-36.0); MONO % 7.1 % (0.0-8.0); NEUT % 90.6 % (16.0-70.0); PLATELET COUNT 389 TH/MM3 (150-450); RED BLOOD COUNT 3.16 MIL/MM3 (4.50-5.90); RED CELL DISTRIBUTION WIDTH 14.7 % (11.6-17.2); WHITE BLOOD COUNT 14.4 TH/MM3 (4.0-11.0)
[2016-04-27] MEDS: POTASSIUM PHOSPHATE MONOBASIC 500 MG TAB PO SCH ×2 (09:00→22:06)
[2016-04-27 09:06] LABS: BICARBONATE 25.6 MEQ/L (21.0-32.0); MAGNESIUM 1.4 MG/DL (1.5-2.5); POTASSIUM 3.7 MEQ/L (3.5-5.1)
[2016-04-27] MEDS: SODIUM CHLOR 0.9% 1000 ML INJ 1,000 ML IV SCH (09:20)
[2016-04-27] MEDS: LACTOBACILLUS ACIDOPHILUS TAB PO SCH ×3 (10:03→16:42)
[2016-04-27] MEDS: DOCUSATE SODIUM 50 MG/SENNA 8.6 MG TAB G-TUBE SCH ×2 (10:03→21:00)
[2016-04-27] MEDS: MAGNESIUM OXIDE 400 MG TAB GT SCH ×2 (10:03→22:07)
[2016-04-27] MEDS: POLYETHYLENE GLYCOL 17 GM PKG G-TUBE SCH (10:05)
[2016-04-27] MEDS: CEFEPIME INJ 2,000 MG in SODIUM CHLORIDE 0.9% INJ 100 ML IV SCH ×2 (10:05→23:48)
[2016-04-27] MEDS: POTASSIUM CL 40 MEQ/30 ML LIQ UDC NG SCH ×2 (10:05→22:07)
[2016-04-27] MEDS: SODIUM CHLORIDE 0.9% FLUSH 5 ML FLUSH IVF SCH ×2 (10:05→23:51)
[2016-04-27] MEDS: ACETAMINOPHEN 325MG/HYDROcodone 7.5MG/15ML UDC PO PRN ×2 (11:50→22:19)
[2016-04-27 12:00] VITALS: BP 87/65; PULSE 115; RESP 16; TEMP 98.7; O2SAT 97
[2016-04-27] MEDS ORDERED: MAGNESIUM SULFATE 1 GM PREMIX 100 ML IV ONE (12:00)
--- NOTE | 2016-04-27 14:30 | HHI.PR ---
Subjective Subjective Notes Gives thumbs up Feeling good Reports no pain Objective Vitals/I&O Vital Signs Date Time Temp Pulse Resp B/P Pulse Ox O2 Delivery O2 Flow Rate FiO2 04/27/16 12:00 98.7 115 16 87/65 97 Labs Laboratory Tests Test 04/26/16 04/27/16 15:16 07:49 Blood Type O POSITIVE Antibody Screen NEGATIVE Crossmatch Leukocyte-Reduced Red Blood Cells Blood Bank Comment White Blood Count 14.4 Red Blood Count 3.16 Hemoglobin 9.4 Hematocrit 27.5 Mean Corpuscular Volume 87.0 Mean Corpuscular Hemoglobin 29.8 Mean Corpuscular Hemoglobin 34.2 Concent Red Cell Distribution Width 14.7 Platelet Count 389 Mean Platelet Volume 6.3 Neutrophils (%) (Auto) 90.6 Lymphocytes (%) (Auto) 1.8 Monocytes (%) (Auto) 7.1 Eosinophils (%) (Auto) 0.4 Basophils (%) (Auto) 0.1 Neutrophils # (Auto) 13.0 Lymphocytes # (Auto) 0.3 Monocytes # (Auto) 1.0 Eosinophils # (Auto) 0.1 Basophils # (Auto) 0.0 CBC Comment DIFF FINAL Differential Comment Sodium Level 133 Potassium Level 3.7 Chloride Level 99 Carbon Dioxide Level 25.6 Anion Gap 8 Blood Urea Nitrogen 7 Creatinine 0.38 Estimat Glomerular Filtration 258 Rate Random Glucose 94 Calcium Level 7.7 Magnesium Level 1.4 Date/Time Procedure Status Source Growth 04/26/16 02:15 Aerobic Blood Culture - Preliminary Resulted Blood Peripheral NO GROWTH IN 1 DAY 04/26/16 02:15 Anaerobic Blood Culture - Preliminary Resulted Blood Peripheral NO GROWTH IN 1 DAY Cardiovascular: Regular Lungs: Clear Abdomen: Other (PEG in place ) Extremities: No edema Narrative Exam Face: large RIGHT sided facial malignancy A/P Assessment and Plan 35 year old male with large oropharyngeal cancer -Hmg stable today after two units PRBCs yesterday -s/p PEG placement -s/p biopsy of mass -Continue chemotherapy and radiation -Tolerating TF I certify and attest that I personally examined this patient and reviewed her findings in the EMR. Ms Stapleton is documenting our encounter on my behalf and entered orders under my direct supervision. I discussed our recommendations with the patient and family at the bedside. I also discussed our encounter with the nursing staff present. Brittnee Fair FACS Apr 27, 2016 14:30 Juan Oseguera MD May 05, 2016 10:33
[2016-04-27] MEDS: ENOXAPARIN SODIUM 30 MG/0.3 ML SYRINGE SQ SCH (15:19)
[2016-04-27 16:00] VITALS: BP 114/64; PULSE 105; RESP 16; TEMP 98.8; O2SAT 98
[2016-04-27 20:00] VITALS: BP 95/52; PULSE 110; RESP 20; TEMP 97; O2SAT 98
[2016-04-28] VITALS (7 sets, daily range): BP systolic 95–113; BP diastolic 54–67; PULSE 101–118; RESP 16–21; TEMP 96.2–100.8; O2SAT 97–99
[2016-04-28] MEDS: metroNIDAZOLE 500 MG INJ 100 ML IV SCH ×4 (01:11→19:59)
[2016-04-28] MEDS: FREE WATER G-TUBE SCH ×3 (06:00→20:49)
[2016-04-28] MEDS: METOCLOPRAMIDE HCL SYRUP 10 MG/10 ML UDC G-TUBE SCH ×4 (06:54→19:59)
[2016-04-28] MEDS: POTASSIUM PHOSPHATE MONOBASIC 500 MG TAB PO SCH ×2 (08:41→21:00)
[2016-04-28] MEDS: MAGNESIUM OXIDE 400 MG TAB GT SCH ×2 (08:41→19:58)
[2016-04-28] MEDS: LACTOBACILLUS ACIDOPHILUS TAB PO SCH ×3 (08:41→18:05)
[2016-04-28] MEDS: POTASSIUM CL 40 MEQ/30 ML LIQ UDC NG SCH ×2 (08:41→21:00)
[2016-04-28] MEDS: DOCUSATE SODIUM 50 MG/SENNA 8.6 MG TAB G-TUBE SCH ×2 (09:00→20:39)
[2016-04-28] MEDS: SODIUM CHLORIDE 0.9% FLUSH 5 ML FLUSH IVF SCH ×2 (09:00→21:00)
[2016-04-28] MEDS: POLYETHYLENE GLYCOL 17 GM PKG G-TUBE SCH (09:00)
--- NOTE | 2016-04-28 09:57 | HHI.PR ---
Subjective Remarks Follow-up oropharyngeal cancer. Patient has no new complaints tolerating tube feeding. Discussed with RN Objective Vitals Vital Signs Date Time Temp Pulse Resp B/P Pulse Ox O2 Delivery O2 Flow Rate FiO2 04/28/16 08:00 100.8 116 16 98/64 97 04/28/16 04:00 96.2 111 18 100/59 97 04/28/16 00:00 96.4 118 21 104/66 97 04/27/16 23:51 19 04/27/16 20:00 97.0 110 20 95/52 98 04/27/16 16:00 98.8 105 16 114/64 98 04/27/16 12:00 98.7 115 16 87/65 97 I/O 04/27/16 04/27/16 04/27/16 04/28/16 04/28/16 04/28/16 07:00 15:00 23:00 07:00 15:00 23:00 Intake Total 1770 ml 220 ml 711 ml Balance 1770 ml 220 ml 711 ml Intake Oral 220 ml 120 ml IV Total 650 ml 591 ml Tube Feeding 720 ml Tube Irrigant 400 ml # Voids 2 3 1 Result Diagram: 04/27/16 0749 04/27/16 0749 Imaging Last Impressions Chest X-Ray 04/23/16 0000 Signed Impressions: Service Date/Time: Saturday, April 23, 2016 11:08 - CONCLUSION: No acute cardiopulmonary disease identified. Prabhu Jang MD Liver Ultrasound 04/12/16 0000 Signed Impressions: Service Date/Time: Tuesday, April 12, 2016 22:29 - CONCLUSION: 1. Solid indeterminate mass in the left lobe of the liver as well as a tiny cyst. An MRI of the abdomen with without contrast may be helpful for further assessment if felt clinically warranted. The possibility of a metastatic lesion is not excluded. 2. Cholelithiasis. 3. Bilateral pleural effusions are suspected sonographically. Chau Ward MD Chest CT 04/11/16 0000 Signed Impressions: Service Date/Time: Monday, April 11, 2016 14:09 - CONCLUSION: 1. Multiple small scattered noncalcified pulmonary nodules which are nonspecific but are of concern for early metastatic disease. 2. The known large tumor mass in the right side of the face and neck is partially visualized with destructive change involving the right side of the mandible. This extends into the right supraclavicular region. Please see soft tissue neck CT for further details. 3. Low attenuation lesion in the left lobe of the liver again noted. Holland Villegas MD Abdomen/Pelvis CT 04/11/16 0000 Signed Impressions: Service Date/Time: Monday, April 11, 2016 14:09 - CONCLUSION: 1. 1.4 cm low-attenuation lesion left lobe of the liver of concern for a metastasis. There is a smaller more cystic appearing structure in the right lobe. 2. The remainder of the study is unremarkable except for a PEG tube in the stomach. Holland Villegas MD Upper Extremity Ultrasound 04/08/16 0000 Signed Impressions: Service Date/Time: Friday, April 08, 2016 13:04 - CONCLUSION: No thrombus. Deshawn Michele MD Neck CT 04/02/16 0000 Signed Impressions: Service Date/Time: Saturday, April 02, 2016 11:54 - CONCLUSION: Very large heterogeneous soft tissue mass along the right side of the face with gross destruction involving most of the right mandible. The mass contains amorphous calcifications and appears to involve the right sternocleidomastoid muscle. The mass appears to extend into the oral cavity with diffuse enlargement of the right tonsillar pillar. Neoplastic disease in the primary consideration. Niall Corrales MD Multiplanar Reconstruction 04/02/16 0000 Signed Impressions: Service Date/Time: Saturday, April 02, 2016 11:54 - CONCLUSION: 3-D reconstructive images demonstrating destruction involving most the right side of the mandible. Niall Corrales MD Head CT 04/02/16 0000 Signed Impressions: Service Date/Time: Saturday, April 02, 2016 11:54 - CONCLUSION: 1. Unremarkable CT scan of the brain 2. Large abnormal soft tissue mass with calcifications along the right side of the face. Niall Corrales MD Objective Remarks GENERAL: in no acute distress HEENT; swollen right face with erythema extending to right neck- covered with dressing. CARDIOVASCULAR: Mildly tachycardic RESPIRATORY: Clear to auscultation. Breath sounds equal bilaterally. No wheezes , rales, or rhonchi. GASTROINTESTINAL: Abdomen soft, non-tender, nondistended. Normal, active bowel sounds MUSCULOSKELETAL: Extremities without clubbing, cyanosis, or edema. NEURO: Awake and alert. Moving all extremities. Nonfocal Procedures central line placement PEG placement bone biopsy teeth extraction A/P Assessment and Plan -squamous cell carcinoma of the oropharynx CT of the face with very large heterogeneous soft tissue mass along the right side of the face with gross destruction involving most of the right mandible. The mass contains amorphous calcifications and appears to involve the right sternocleidomastoid muscle. The mass appears to extend into the oral cavity with diffuse enlargement of the right tonsillar pillar. CT of the chest and abdomen with possible lung/ liver mets. 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 continue with pain control. general and facial surgery following for debulking next week. -sepsis with possible right facial wound and central line as the source-central line discontinued- one bottle of blood cultures with pseudomonas stutzeri - s/p IV Zosyn total 2 weeks end date April 20- repeated blood cultures 04/09 , 04/19, 04/21 and . Negative CXR. Negative UA. Recurrent fever from infected tumor. Continue Empiric Flagyl April 20 and cefepime April 23. Follow up cultures negative to date. Consider adding IV vancomycin Leukocytosis. Slightly worse status post blood transfusion. Monitor Sinus tachycardia. EKG tracing interpreted by me with sinus tachycardia. This is secondary to sepsis and fever as well as anemia. TSH within normal limits Could also be from anxiety -acute kidney injury/ hyponatremia due to dehydration-- improved - will monitor -hypercalcemia- received a dose of aredia-resolved- will continue to monitor. -anemia- s/p PRBC transfusion- will monitor H/H- worse today from chemo. transfuse to keep Hb > 8 -hypokalemia/hypomagnesemia/hypophosphatemia;replaced. -severe malnutrition- s/p PEG placement-started on tube feeding - welcome hostess consulted. Patient with intolerance likely contributed by constipation. Continue Reglan and monitor response. We'll decrease tube feeding discussed with RN not to hold tube feeding unless residual over 400 mL. Switch bolus tube feeding which he is tolerating -Constipation. Now stooling continue Clara-Colace. Monitor hemorrhoidal bleeding -DVT prophylaxis with lovenox and consider discontinuation if worsening rectal bleeding -DNR status palliative care following. Discharge Planning No payor source for chemotherapy and radiation treatment. Per case management director, patient to remain in-house to complete treatment. Poor prognosis Vish Allen MD Apr 28, 2016 09:56
--- NOTE | 2016-04-28 11:09 | PD.ONC.PN ---
Subjective Subjective Remarks Tmax 100.8 this AM. Translation service used to speak with patient/brother. Patient tolerating bolus tube feeds. Objective Data Date Time Temp Pulse Resp B/P Pulse Ox O2 Delivery O2 Flow Rate FiO2 04/28/16 08:00 100.8 116 16 98/64 97 04/28/16 04:00 96.2 111 18 100/59 97 04/28/16 00:00 96.4 118 21 104/66 97 04/27/16 23:51 19 04/27/16 20:00 97.0 110 20 95/52 98 04/27/16 16:00 98.8 105 16 114/64 98 04/27/16 12:00 98.7 115 16 87/65 97 04/28/16 04/28/16 04/28/16 07:00 15:00 23:00 Intake Total 711 ml Output Total 70.0 ml Balance 711 ml -70.0 ml Result Diagram: 04/27/16 0749 04/27/16 0749 Culture Results Microbiology Date/Time Procedure Status Source Growth 04/26/16 02:10 Aerobic Blood Culture - Preliminary Resulted Blood Peripheral NO GROWTH IN 1 DAY 04/26/16 02:10 Anaerobic Blood Culture - Preliminary Resulted Blood Peripheral NO GROWTH IN 1 DAY 04/26/16 02:15 Aerobic Blood Culture - Preliminary Resulted Blood Peripheral NO GROWTH IN 1 DAY 04/26/16 02:15 Anaerobic Blood Culture - Preliminary Resulted Blood Peripheral NO GROWTH IN 1 DAY Administered Medications Medications (Trade) Dose Ordered Sig/Sara Route PRN Reason Start Time Stop Time Status Last Admin Dose Admin Ondansetron HCl (Zofran Inj) 4 mg Q6H PRN IV PUSH NAUSEA 04/02/16 01:45 04/02/16 02:38 IV Flush (NS Flush) 2 ml UNSCH PRN IVF FLUSH AFTER USING IV ACCESS 04/02/16 08:15 04/17/16 05:08 IV Flush (NS Flush) 2 ml BID IVF 04/02/16 09:00 04/27/16 23:51 Diphenhydramine HCl (Benadryl) 25 mg Q6H PRN PO ITCHING 04/02/16 09:00 04/12/16 04:30 Enoxaparin Sodium (Lovenox Inj) 30 mg Q24H SQ 04/04/16 15:30 04/27/16 15:19 Water (Free Water) VOLUME: 200 ML Q6HR G-TUBE 04/04/16 08:45 04/28/16 06:00 Acetaminophen (Tylenol) 650 mg Q4H PRN PO FEVER OVER 101.0 04/07/16 01:45 04/26/16 12:22 Potassium Chloride (KCl 40 Meq/30 ml Liq) 40 meq Q12HR NG 04/08/16 12:00 04/28/16 08:41 Acetaminophen/ Hydrocodone Bitart (Hycet 325-7.5 Mg Liq) 15 ml Q3HR PRN PO pain1-9 04/08/16 14:45 04/27/16 22:19 Senna/Docusate Sodium (Clara-Colace) 2 tab BID G-TUBE 04/15/16 21:00 04/27/16 10:03 Padimate O (Chapstick) 1 applic UNSCH PRN TOP DISCOMFORT 04/17/16 10:00 04/18/16 00:01 Magnesium Oxide (Mag-Ox) 800 mg Q12HR GT 04/17/16 21:00 04/28/16 08:41 Metoclopramide HCl 10 mg 10 mg ACHS G-TUBE 04/19/16 16:00 04/28/16 06:54 Metronidazole (Flagyl 500 Mg Inj) 100 ml @ 100 mls/hr Q6H IV 04/20/16 14:00 05/04/16 13:59 04/28/16 08:39 Polyethylene Glycol 17 gm 17 gm DAILY G-TUBE 04/22/16 09:00 04/27/16 10:05 Cefepime HCl 2000 mg/Sodium Chloride 100 ml @ 200 mls/hr Q12H IV 04/23/16 09:00 04/27/16 23:48 Sodium Chloride (NS 1000 ml Inj) 1,000 ml @ 84 mls/hr [id number] IV 04/23/16 10:00 04/26/16 19:55 Potassium Phosphate (K-Phos) 500 mg Q12HR PO 04/24/16 12:00 04/28/16 08:41 Lactobacillus Acidophilus (Lactinex) 1 tab TID PO 04/24/16 18:00 04/28/16 08:41 Objective Remarks GENERAL: Young man, sitting upright in bed SKIN: warm and dry. HEAD: Normocephalic. on right face there is a large necrotic mass with copious amounts of pus exuding from a crater center. small amount of blood oozing from periphery of wound as well. the mass has decreased in size since the patient entered the hospital and began treatment. EYES: No injection or drainage. NECK: trachea midline CARDIOVASCULAR: Regular rate and rhythm RESPIRATORY: Breath sounds equal bilaterally. No accessory muscle use. GASTROINTESTINAL: Abdomen soft, non-tender. G-tube in place, receiving bolus tube feeds. EXTREMITIES: No cyanosis. NEUROLOGICAL: Awake and alert. Assessment/Plan Assessment 35y/o male with invasive squamous cell carcinoma. 04/12/16--XRT started; twice daily. 04/13/16: weekly carbo/taxol dose 1 given 04/21/16: weekly carbo/taxol dose 2 given 04/28/16: weekly carbo/taxol dose 3 given Plan 1. continue BID XRT 2. give weekly carbo/taxol today 3. the mass has significantly shrunk since starting chemo/XRT, but will need to be debrided and need additional wound care. Dr. Lezama spoke with Dr. Juan oseguera who will see the patient today, as well Attending Statement The exam, history, and the medical decision-making described in the above note were completed with the assistance of the mid-level provider. I reviewed and agree with the findings presented. I attest that I had a [id number] encounter with the patient on the same day, and personally performed and documented my assessment and findings in the medical record. the exam revealed a large open crater around a rim of tumor with large amounts of puss. He will need wound care and at some point debridement. I discussed this with Juan Oseguera and discussed this with the patient and brother using dredge engineer through the computer Sirisha Cotton Apr 28, 2016 11:08 Yovany Lezama MD May 03, 2016 19:45
[2016-04-28] MEDS: CEFEPIME INJ 2,000 MG in SODIUM CHLORIDE 0.9% INJ 100 ML IV SCH (11:37)
--- NOTE | 2016-04-28 12:33 | HHI.PR ---
Subjective Subjective Notes Resting in bed; Gives thumbs up Brother at bedside Objective Vitals/I&O Vital Signs Date Time Temp Pulse Resp B/P Pulse Ox O2 Delivery O2 Flow Rate FiO2 04/28/16 08:00 100.8 116 16 98/64 97 Labs Date/Time Procedure Status Source Growth 04/26/16 02:15 Aerobic Blood Culture - Preliminary Resulted Blood Peripheral NO GROWTH IN 2 DAYS 04/26/16 02:15 Anaerobic Blood Culture - Preliminary Resulted Blood Peripheral NO GROWTH IN 2 DAYS Cardiovascular: Regular Lungs: Clear Abdomen: Other (G tube in place ) Extremities: No edema Narrative Exam Face: large RIGHT sided facial malignancy A/P Assessment and Plan 35 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 Craig plans to take to OR next week for debulking of tumor -s/p PEG placement -s/p biopsy of mass -Continue chemotherapy and radiation -Tolerating bolus feedings I certify and attest that I personally examined this patient and reviewed her findings in the EMR. Ms Stapleton is documenting our encounter on my behalf and entered orders under my direct supervision. I discussed our recommendations with the patient and family at the bedside. I also discussed our encounter with the nursing staff present. HAYDEN WOODS MD [facility] Brittnee StapletonP Apr 28, 2016 12:33 Hayden Woods MD May 05, 2016 10:36
[2016-04-28] MEDS: SODIUM CHLOR 0.9% 1000 ML INJ 1,000 ML IV SCH ×2 (13:05→21:05)
[2016-04-28 13:07] LABS: HEMATOCRIT 29.4 % (39.0-51.0); REVIEW FLAG FINAL
[2016-04-28] MEDS ORDERED: SODIUM CHLOR 0.9% 250 ML INJ 250 ML IV SCH (14:00)
[2016-04-28] MEDS: ENOXAPARIN SODIUM 30 MG/0.3 ML SYRINGE SQ SCH (15:42)
[2016-04-28] MEDS ORDERED: diphenhydrAMINE HCL 25 MG CAP PO ONE (16:00)
[2016-04-28] MEDS ORDERED: FAMOTIDINE 20 MG/2 ML VIAL IV ONE (16:00)
[2016-04-28] MEDS ORDERED: DEXAMETHASONE INJ 10 MG in SODIUM CHLORIDE 0.9% INJ 50 ML IV ONE (16:00)
[2016-04-28] MEDS ORDERED: GRANISETRON HCL 1 MG/ML VIAL IV ONE (16:00)
[2016-04-28] MEDS ORDERED: PACLITAXEL IV ONE (17:00)
[2016-04-28] MEDS ORDERED: SODIUM CHLOR 0.9% IV ONE ×2 (17:00→18:00)
[2016-04-28] MEDS ORDERED: CARBOPLATIN IV ONE (18:00)
[2016-04-28] MEDS: ACETAMINOPHEN 325MG/HYDROcodone 7.5MG/15ML UDC PO PRN (18:19)
[2016-04-29] VITALS (7 sets, daily range): BP systolic 98–108; BP diastolic 56–68; PULSE 83–105; RESP 16–20; TEMP 96.5–98.7; O2SAT 97–98
[2016-04-29] MEDS: ACETAMINOPHEN 325MG/HYDROcodone 7.5MG/15ML UDC PO PRN ×2 (01:15→20:49)
[2016-04-29] MEDS: metroNIDAZOLE 500 MG INJ 100 ML IV SCH ×4 (02:15→20:50)
[2016-04-29] MEDS: CEFEPIME INJ 2,000 MG in SODIUM CHLORIDE 0.9% INJ 100 ML IV SCH ×3 (02:16→21:07)
[2016-04-29] MEDS: FREE WATER G-TUBE SCH ×4 (06:00→21:40)
[2016-04-29] MEDS: METOCLOPRAMIDE HCL SYRUP 10 MG/10 ML UDC G-TUBE SCH ×4 (07:00→20:49)
--- NOTE | 2016-04-29 08:05 | HHI.PR ---
Subjective Remarks resting comfortably with no distress. no fever. no new complaints. Objective Vitals Vital Signs Date Time Temp Pulse Resp B/P Pulse Ox O2 Delivery O2 Flow Rate FiO2 04/29/16 04:00 98.0 105 17 103/59 98 04/29/16 02:30 20 04/29/16 00:12 98.7 94 20 105/62 98 04/29/16 00:00 98.3 100 17 104/68 97 04/28/16 21:53 97.1 101 20 113/67 98 04/28/16 20:00 98.6 110 18 105/59 98 04/28/16 16:00 100.6 112 16 96/54 99 04/28/16 12:00 99.8 115 16 95/60 98 I/O 04/28/16 04/28/16 04/28/16 04/29/16 04/29/16 04/29/16 07:00 15:00 23:00 07:00 15:00 23:00 Intake Total 711 ml 150 ml 60 ml 373 ml Output Total 70.0 ml 130.0 ml Balance 711 ml 80.0 ml -70.0 ml 373 ml Intake Oral 120 ml 150 ml 60 ml IV Total 591 ml 373 ml Tube Feeding Residual Discard 70.0 ml 130.0 ml # Voids 1 3 1 Result Diagram: 04/28/16 1236 04/28/16 1236 Imaging Last Impressions Chest X-Ray 04/23/16 0000 Signed Impressions: Service Date/Time: Saturday, April 23, 2016 11:08 - CONCLUSION: No acute cardiopulmonary disease identified. Prabhu Jang MD Liver Ultrasound 04/12/16 0000 Signed Impressions: Service Date/Time: Tuesday, April 12, 2016 22:29 - CONCLUSION: 1. Solid indeterminate mass in the left lobe of the liver as well as a tiny cyst. An MRI of the abdomen with without contrast may be helpful for further assessment if felt clinically warranted. The possibility of a metastatic lesion is not excluded. 2. Cholelithiasis. 3. Bilateral pleural effusions are suspected sonographically. Chau Ward MD Chest CT 04/11/16 0000 Signed Impressions: Service Date/Time: Monday, April 11, 2016 14:09 - CONCLUSION: 1. Multiple small scattered noncalcified pulmonary nodules which are nonspecific but are of concern for early metastatic disease. 2. The known large tumor mass in the right side of the face and neck is partially visualized with destructive change involving the right side of the mandible. This extends into the right supraclavicular region. Please see soft tissue neck CT for further details. 3. Low attenuation lesion in the left lobe of the liver again noted. Holland Villegas MD Abdomen/Pelvis CT 04/11/16 Signed Impressions: Service Date/Time: Monday, April 11, 2016 14:09 - CONCLUSION: 1. 1.4 cm low-attenuation lesion left lobe of the liver of concern for a metastasis. There is a smaller more cystic appearing structure in the right lobe. 2. The remainder of the study is unremarkable except for a PEG tube in the stomach. Holland Villegas MD Upper Extremity Ultrasound 04/08/16 Signed Impressions: Service Date/Time: Friday, April 08, 2016 13:04 - CONCLUSION: No thrombus. Deshawn Michele MD Neck CT 04/02/16 Signed Impressions: Service Date/Time: Saturday, April 02, 2016 11:54 - CONCLUSION: Very large heterogeneous soft tissue mass along the right side of the face with gross destruction involving most of the right mandible. The mass contains amorphous calcifications and appears to involve the right sternocleidomastoid muscle. The mass appears to extend into the oral cavity with diffuse enlargement of the right tonsillar pillar. Neoplastic disease in the primary consideration. Niall Corrales MD Multiplanar Reconstruction 04/02/16 Signed Impressions: Service Date/Time: Saturday, April 02, 2016 11:54 - CONCLUSION: 3-D reconstructive images demonstrating destruction involving most the right side of the mandible. Niall Corrales MD Head CT 04/02/16 0000 Signed Impressions: Service Date/Time: Saturday, April 02, 2016 11:54 - CONCLUSION: 1. Unremarkable CT scan of the brain 2. Large abnormal soft tissue mass with calcifications along the right side of the face. Niall Corrales MD Objective Remarks GENERAL: in no acute distress HEENT; swollen right face- covered with clean dressing. CARDIOVASCULAR: Regular rate and regular rhythm without murmurs, gallops, or rubs. RESPIRATORY: Clear to auscultation. Breath sounds equal bilaterally. No wheezes , rales, or rhonchi. GASTROINTESTINAL: Abdomen soft, non-tender, nondistended. Normal, active bowel sounds MUSCULOSKELETAL: Extremities without clubbing, cyanosis, or edema. NEURO: Alert & Oriented x4 to person, place, time, situation. Moves all ext x4 Procedures central line placement PEG placement bone biopsy teeth extraction Medications and IVs Current Medications Sodium Chloride (NS 1000 ml Inj) 1,000 ml @ 75 mls/hr [id number] IV Last administered on 04/02/16 02:38; Start 04/02/16 at 01:45; Stop 04/02/16 at 08:25 ; Status DC Morphine Sulfate (Morphine Inj) 2 mg Q2H PRN IV BREAKTHROUGH PAIN Last administered on 04/02/16 02:38; Start 04/02/16 at 01:45; Stop 04/08/16 at 09:45 ; Status DC Ondansetron HCl 4 mg 4 mg Q6H PRN IV PUSH NAUSEA Last administered on 02:38; Start 04/02/16 at 01:45 Sodium Chloride 500 ml @ 0 mls/hr BOLUS ONCE IV Last administered on 04:00; Start 04/02/16 at 04:00; Stop 04/02/16 at 04:01; Status DC Potassium Chloride/Dextrose/ Sod Cl (D5-NS + KCl 20 Meq Inj) 1,000 ml @ 125 mls /hr Q8H IV Last administered on 04/03/16 11:51; Start 04/02/16 at 09:00; Stop 04/04/16 at 08:51; Status DC IV Flush (NS Flush) 2 ml UNSCH PRN IVF FLUSH AFTER USING IV ACCESS Last administered on 04/17/16 05:08; Start 04/02/16 at 08:15 IV Flush (NS Flush) 2 ml BID IVF Last administered on 04/28/16 21:00; Start at 09:00 Acetaminophen (Tylenol) 650 mg Q4H PRN PO PAIN SCALE 1 TO 10; Start 04/02/16 at 09:00; Stop 04/02/16 at 09:00; Status DC Ibuprofen (Motrin) 600 mg Q4H PRN PO PAIN SCALE 1 TO 5; Start 04/02/16 at 08:15 ; Stop 04/02/16 at 08:49; Status DC Hydromorphone HCl (Dilaudid Pf Inj) 0.5 mg Q2H PRN IV PAIN SCALE 6 TO 10; Start 04/02/16 at 08:15; Stop 04/02/16 at 08:49; Status DC Diphenhydramine HCl (Benadryl) 25 mg Q6H PRN PO ITCHING Last administered on 04:30; Start 04/02/16 at 09:00 Miscellaneous Information (Post-op Orders (for Pharmacy)) STAT ONCE XX ; Start 04/02/16 at 08:15; Stop 04/03/16 at 06:06; Status DC Miscellaneous Information 1 ONCE ONCE XX ; Start 04/02/16 at 08:15; Stop at 06:06; Status DC Enoxaparin Sodium (Lovenox Inj) 30 mg Q24H SQ Last administered on 04/28/16 15 :42; Start 04/04/16 at 15:30 Naloxone HCl (Narcan Inj) 0.4 mg UNSCH PRN IV RESPIRATORY RATE LESS THAN 10; Start 04/02/16 at 08:15; Stop 04/02/16 at 08:49; Status DC Diphenhydramine HCl (Benadryl Inj) 25 mg Q6H PRN IV ITCHING; Start 04/02/16 at 09:00; Stop 04/02/16 at 09:00; Status DC ELEVATOR ADJUSTER Dosage Infused (Pha) 1 Q8HR .XX ; Start 04/02/16 at 09:00; Stop 04/02/16 at 09:00; Status DC Acetaminophen/ Hydrocodone Bitart (Hycet 325-7.5 Mg Liq) 15 ml Q4H PRN PO Last administered on 04/08/16 10:31; Start 04/02/16 at 09:00; Stop 04/08/16 at 14 :40; Status DC Ibuprofen (Motrin Liq) 600 mg Q4H PRN PO PAIN SCALE 1-5; Start 04/02/16 at 09: 00; Stop 04/02/16 at 09:02; Status DC Ibuprofen 600 mg 600 mg Q4H PRN PO PAIN SCALE 1-5; Start 04/02/16 at 09:02; Stop 04/14/16 at 08:27; Status DC Sodium Chloride (NS 500 ml Inj) 500 ml @ 30 mls/hr [id number] IV ; Start 04/03/16 at 03:15; Stop 04/04/16 at 03:14; Status DC Bupivacaine HCl/ Epinephrine Bitart (Sensorcaine-Epinephrine Pf 0.25% Inj) 20 ml STK-MED ONCE .ROUTE ; Start 04/03/16 at 13:46; Stop 04/03/16 at 13:47; Status DC Chlorhexidine Gluconate (Peridex 0.12% Liq) 60 ml STK-MED ONCE .ROUTE ; Start at 13:46; Stop 04/03/16 at 13:47; Status DC Heparin Sodium (Porcine) (Heparin Inj) 10,000 units STK-MED ONCE .ROUTE ; Start 04/03/16 at 13:46; Stop 04/03/16 at 13:47; Status DC Heparin Sodium (Porcine) (Heparin Inj) 10,000 units STK-MED ONCE .ROUTE ; Start 04/03/16 at 13:46; Stop 04/03/16 at 13:47; Status DC Cefazolin Sodium (Ancef Inj) 1,000 mg STK-MED ONCE IV Last administered on 04/03t 14:43; Start 04/03/16 at 14:43; Stop 04/03/16 at 15:03; Status DC Lidocaine/ Epinephrine (Xylocaine-Epi 1%-1:100,000 Inj) 50 ml STK-MED ONCE .ROUTE ; Start 04/03/16 at 15:35; Stop 04/03/16 at 15:36; Status DC Lidocaine/ Epinephrine (Xylocaine-Epi 2%-1:100,000 Inj) 30 ml STK-MED ONCE .ROUTE Last administered on 04/03/16 16:01; Start 04/03/16 at 15:35; Stop at 15:36; Status DC Microfibriller Collagen Hemostat (Avitene Powder Pack) 1 gm STK-MED ONCE .ROUTE ; Start 04/03/16 at 15:41; Stop 04/03/16 at 15:42; Status DC Fentanyl Citrate 250 mcg 250 mcg STK-MED ONCE .ROUTE ; Start 04/03/16 at 16:34; Stop 04/03/16 at 16:35; Status DC Sodium Chloride 11 meq/Sodium Acetate 59 meq/ Potassium Chloride 40 meq/ Magnesium Chloride 10 meq/ Multivitamins 10 ml/Folic Acid 1 mg/Amino Acids/ Dextrose 2,067.5261 ml @ 83 mls/hr Q24H IV-CENTRAL Last administered on 22:27; Start 04/03/16 at 20:00; Stop 04/08/16 at 09:30; Status DC Fat Emulsion Intravenous (Liposyn Iii 20% Inj) 250 ml @ 10 mls/hr Q24H IV- CENTRAL Last administered on 04/06/16 22:26; Start 04/03/16 at 20:00; Stop 04/08 at 09:31; Status DC Morphine Sulfate (*morphine INJ PERIprocedure ONLY) 8 mg STK-MED ONCE .ROUTE Last administered on 04/03/16 17:22; Start 04/03/16 at 17:22; Stop 04/03/16 at 17:23; Status DC Miscellaneous Information ALL NURSING DEPARTME... UNSCH PRN XX SEE LABEL COMMENTS; Start 04/03/16 at 16:28; Stop 04/04/16 at 16:27; Status DC Potassium Chloride 100 ml @ 50 mls/hr Q2H IV Last administered on 04/04/16 01 :52; Start 04/03/16 at 21:45; Stop 04/04/16 at 01:44; Status DC Magnesium Sulfate/ Dextrose (Magnesium Sulfate 1 Gm Premix) 100 ml @ 100 mls/ hr Q1H IV Last administered on 04/04/16 00:16; Start 04/03/16 at 21:45; Stop 04/03/16 at 23:44; Status DC Water (Free Water) VOLUME: 200 ML Q6HR G-TUBE Last administered on 04/29/16 06 :00; Start 04/04/16 at 08:45 Potassium Chloride (KCl 40 Meq/30 ml Liq) 40 meq ONCE ONCE PEG Last administered on 04/04/16 10:45; Start 04/04/16 at 10:45; Stop 04/04/16 at 10:50 ; Status DC Propofol (Diprivan 200 Mg/20 ml Inj) 200 mg STK-MED ONCE IV ; Start 04/03/16 at 10:46; Stop 04/04/16 at 10:46; Status DC Phenylephrine HCl (Neosynephrine/ NS 1000 Mcg/10ml Syr) 1,000 mcg STK-MED ONCE IV ; Start 04/03/16 at 10:46; Stop 04/04/16 at 10:46; Status DC Ondansetron HCl 4 mg 4 mg STK-MED ONCE IV PUSH ; Start 04/03/16 at 10:46; Stop 04/04/16 at 10:46; Status DC Lactated Ringer's 1,000 ml @ As Directed STK-MED ONCE IV ; Start 04/03/16 at 10 :46; Stop 04/04/16 at 10:46; Status DC Pamidronate Disodium/Sodium Chloride (Aredia Inj/NS 1000 ml Inj) 1,000 ml @ 42 mls/hr ONCE ONCE IV Last administered on 04/04/16 23:37; Start 04/04/16 at 22 :00; Stop 04/05/16 at 21:48; Status DC Potassium Chloride 40 meq 40 meq ONCE ONCE PEG Last administered on 04/05/16 15:12; Start 04/05/16 at 12:00; Stop 04/05/16 at 12:01; Status DC Levofloxacin/ Dextrose 100 ml @ 100 mls/hr Q24H IV Last administered on 22:27; Start 04/06/16 at 18:00; Stop 04/07/16 at 09:06; Status DC Sodium Chloride (NS 1000 ml Inj) 1,000 ml @ 0 mls/hr BOLUS ONCE IV Last administered on 04/07/16 01:00; Start 04/07/16 at 01:00; Stop 04/07/16 at 01:01; Status DC Acetaminophen (Tylenol) 650 mg Q4H PRN PO FEVER OVER 101.0 Last administered on 04/26/16 12:22; Start 04/07/16 at 01:45 Metoprolol Tartrate 25 mg 25 mg ONCE ONCE PO Last administered on 04/07/16 03: 16; Start 04/07/16 at 03:15; Stop 04/07/16 at 03:16; Status DC Potassium Chloride/Dextrose/ Sod Cl (D5-NS + KCl 20 Meq Inj) 1,000 ml @ 42 mls/ hr [id number] IV Last administered on 04/15/16 06:17; Start 04/07/16 at 07:45; Stop 04/16/16 at 09:02; Status DC Potassium Chloride 40 meq 40 meq ONCE ONCE PO Last administered on 04/07/16 08 :15; Start 04/07/16 at 08:15; Stop 04/07/16 at 08:18; Status DC Cefepime HCl 2000 mg/Sodium Chloride 100 ml @ 200 mls/hr Q12H IV Last administered on 04/07/16 09:00; Start 04/07/16 at 09:00; Stop 04/07/16 at 09:07; Status DC Piperacillin Sod/ Tazobactam Sod 50 ml @ 100 mls/hr Q6H IV Last administered on 04/20/16 05:04; Start 04/07/16 at 11:00; Stop 04/20/16 at 10:59; Status DC Magnesium Sulfate/ Dextrose (Magnesium Sulfate 1 Gm Premix) 100 ml @ 100 mls/ hr ONCE ONCE IV Last administered on 04/07/16 15:30; Start 04/07/16 at 13:15; Stop 04/07/16 at 14:14; Status DC Potassium Chloride (KCl 40 Meq/30 ml Liq) 40 meq ONCE ONCE PEG Last administered on 04/07/16 15:30; Start 04/07/16 at 13:15; Stop 04/07/16 at 13:16; Status DC Lidocaine HCl (Xylocaine 1% Inj (50 ml)) 50 ml STK-MED ONCE .ROUTE ; Start at 15:46; Stop 04/07/16 at 15:47; Status DC Metoprolol Tartrate (Lopressor) 25 mg ONCE ONCE PO ; Start 04/08/16 at 00:15; Stop 04/08/16 at 00:16; Status DC Morphine Sulfate (Morphine Inj) 2 mg Q4HR IV ; Start 04/08/16 at 12:00; Stop 12/19 at 08:27; Status DC Morphine Sulfate 2 mg 2 mg Q2HR PRN IV PUSH PAIN SCALE 9 TO 10; Start 04/08/16 at 09:00 Potassium Chloride (KCl 20 Meq Premix Inj) 100 ml @ 50 mls/hr Q2H IV Last administered on 04/08/16 18:59; Start 04/08/16 at 12:00; Stop 04/08/16 at 15:59; Status DC Potassium Chloride (KCl 40 Meq/30 ml Liq) 40 meq Q12HR NG Last administered on 04/28/16 21:00; Start 04/08/16 at 12:00 Acetaminophen/ Hydrocodone Bitart 15 ml 15 ml Q3HR PRN PO pain1-9 Last administered on 04/29/16 01:15; Start 04/08/16 at 14:45 Potassium Chloride (KCl 20 Meq Premix Inj) 100 ml @ As Directed STK-MED ONCE .ROUTE ; Start 04/08/16 at 18:57; Stop 04/08/16 at 18:58; Status DC Magnesium Oxide (Mag-Ox) 400 mg Q12HR PEG Last administered on 04/12/16 22:14; Start 04/10/16 at 14:45; Stop 04/12/16 at 21:00; Status DC Potassium Chloride 40 meq 40 meq ONCE ONCE PEG ; Start 04/11/16 at 09:00; Stop 04/11/16 at 09:35; Status DC Magnesium Sulfate/ Dextrose (Magnesium Sulfate 1 Gm Premix) 100 ml @ 100 mls/ hr ONCE ONCE IV Last administered on 04/11/16 10:03; Start 04/11/16 at 09:00; Stop 04/11/16 at 09:59; Status DC Iohexol 95 ml 95 ml STK-MED ONCE IV Last administered on 04/11/16 14:39; Start 04/11/16 at 14:39; Stop 04/11/16 at 14:40; Status DC Sodium Chloride (NS 250 ml Inj) 250 ml @ 0 mls/hr ONCE@1800 ONCE IV ; Start 04/13/16 at 18:00; Stop 04/13/16 at 18:01; Status DC Granisetron HCl (Kytril Inj) 1 mg ONCE@1700 ONCE IV PUSH Last administered on 04/13/16 18:10; Start 04/13/16 at 17:00; Stop 04/13/16 at 17:01; Status DC Famotidine 20 mg 20 mg ONCE@1700 ONCE IV PUSH Last administered on 04/13/16 18 :09; Start 04/13/16 at 17:00; Stop 04/13/16 at 17:01; Status DC Dexamethasone Sodium Phosphate/ Sodium Chloride (Decadron Inj/NS Inj) 52.5 ml @ 210 mls/hr ONCE@1700 ONCE IV Last administered on 04/13/16 17:23; Start 04/13 at 17:00; Stop 04/13/16 at 17:14; Status DC Diphenhydramine HCl 25 mg 25 mg ONCE@1700 ONCE PO Last administered on 17:23; Start 04/13/16 at 17:00; Stop 04/13/16 at 17:01; Status DC Paclitaxel 69.75 mg/Sodium Chloride 261.625 ml @ 130.813 mls/hr ONCE@1800 ONCE IV Last administered on 04/13/16 19:37; Start 04/13/16 at 18:00; Stop at 19:59; Status DC Carboplatin/ Sodium Chloride (Paraplatin Inj/ NS 250 ml Inj) 250 ml @ 500 mls/ hr ONCE@21 ONCE IV Last administered on 04/13/16 21:59; Start 04/13/16 at 21:00 ; Stop 04/13/16 at 21:29; Status DC Hyoscyamine Sulfate (Levsin Inj) 0.25 mg ONCE ONCE IVP Last administered on 19:45; Start 04/14/16 at 19:45; Stop 04/14/16 at 19:46; Status DC Magnesium Oxide 400 mg 400 mg Q12HR GT Last administered on 04/17/16 08:57; Start 04/15/16 at 09:00; Stop 04/17/16 at 13:59; Status DC Magnesium Sulfate/ Dextrose (Magnesium Sulfate 1 Gm Premix) 100 ml @ 100 mls/ hr ONCE ONCE IV Last administered on 04/15/16 09:25; Start 04/15/16 at 09:00 ; Stop 04/15/16 at 09:59; Status DC Docusate Sodium (Colace Liq) 100 mg BID PRN GT CONSTIPATION; Start 04/15/16 at 12:15 Senna/Docusate Sodium (Clara-Colace) 2 tab BID G-TUBE Last administered on 10:03; Start 04/15/16 at 21:00 Lactulose (Lactulose Liq) 30 ml TID PRN G-TUBE CONSTIPATION; Start 04/15/16 at 12:15 Bisacodyl (Dulcolax Supp) 10 mg DAILY PRN [place] CONSTIPATION; Start 04/15/16 at 12 :15 Magnesium Hydroxide 30 ml 30 ml Q6H PRN GT CONSTIPATION; Start 04/15/16 at 12: 15 Magnesium Sulfate/ Dextrose (Magnesium Sulfate 1 Gm Premix) 100 ml @ 100 mls/ hr ONCE ONCE IV Last administered on 04/15/16 13:00; Start 04/15/16 at 13:00 ; Stop 04/15/16 at 13:59; Status DC Potassium Chloride (KCl 40 Meq/30 ml Liq) 40 meq ONCE ONCE G-TUBE Last administered on 04/16/16 09:00; Start 04/16/16 at 09:00; Stop 04/16/16 at 09:02 ; Status DC Metoclopramide HCl 5 mg 5 mg ACHS G-TUBE Last administered on 04/19/16 11:30; Start 04/16/16 at 11:00; Stop 04/19/16 at 13:58; Status DC Magnesium Sulfate/ Dextrose (Magnesium Sulfate 1 Gm Premix) 100 ml @ 100 mls/ hr ONCE ONCE IV Last administered on 04/16/16 16:56; Start 04/16/16 at 14:45 ; Stop 04/16/16 at 15:44; Status DC Padimate O (Chapstick) 1 applic UNSCH PRN TOP DISCOMFORT Last administered on 00:01; Start 04/17/16 at 10:00 Magnesium Oxide 800 mg 800 mg Q12HR GT Last administered on 04/28/16 19:58; Start 04/17/16 at 21:00 Magnesium Sulfate/ Dextrose (Magnesium Sulfate 1 Gm Premix) 100 ml @ 100 mls/ hr Q1H IV Last administered on 04/17/16 18:34; Start 04/17/16 at 14:00; Stop 04/17/16 at 15:59; Status DC Potassium Chloride 20 meq 20 meq ONCE ONCE GT Last administered on 04/17/16 14:47; Start 04/17/16 at 14:00; Stop 04/17/16 at 14:04; Status DC Magnesium Sulfate/ Dextrose (Magnesium Sulfate 1 Gm Premix) 100 ml @ 100 mls/ hr Q1H IV ; Start 04/17/16 at 18:30; Stop 04/17/16 at 19:29; Status DC Potassium Chloride (KCl 40 Meq/30 ml Liq) 40 meq ONCE ONCE PO Last administered on 04/18/16 09:09; Start 04/18/16 at 08:00; Stop 04/18/16 at 08:01 ; Status DC Metoclopramide HCl 10 mg 10 mg ACHS G-TUBE Last administered on 04/29/16 07:00 ; Start 04/19/16 at 16:00 Metronidazole (Flagyl 500 Mg Inj) 100 ml @ 100 mls/hr Q6H IV Last administered on 04/29/16 02:15; Start 04/20/16 at 14:00; Stop 05/04/16 at 13:59 Potassium Chloride (KCl) 30 meq ONCE ONCE PO ; Start 04/20/16 at 13:45; Stop at 13:47; Status DC Granisetron HCl (Kytril Inj) 1 mg ONCE@1700 ONCE IV PUSH Last administered on 04/21/16 14:20; Start 04/21/16 at 12:00; Stop 04/21/16 at 12:01; Status DC Famotidine 20 mg 20 mg ONCE ONCE IV PUSH Last administered on 04/21/16 14:20 ; Start 04/21/16 at 12:00; Stop 04/21/16 at 12:01; Status DC Sodium Chloride 250 ml @ 0 mls/hr ONCE ONCE IV Last administered on 04/21/16 14:30; Start 04/21/16 at 12:00; Stop 04/21/16 at 12:01; Status DC Dexamethasone Sodium Phosphate/ Sodium Chloride (Decadron Inj/NS Inj) 52.5 ml @ 210 mls/hr ONCE ONCE IV Last administered on 04/21/16 14:20; Start at 12:00; Stop 04/21/16 at 12:14; Status DC Diphenhydramine HCl 25 mg 25 mg ONCE ONCE PO ; Start 04/21/16 at 12:00; Stop at 12:01; Status DC Paclitaxel 67.05 mg/Sodium Chloride 261.175 ml @ 261.625 mls/hr ONCE ONCE IV Last administered on 04/21/16 14:47; Start 04/21/16 at 13:00; Stop 04/21/16 at 13:59; Status DC Carboplatin/ Sodium Chloride (Paraplatin Inj/ NS 250 ml Inj) 250 ml @ 500 mls/ hr ONCE ONCE IV Last administered on 04/21/16 16:12; Start 04/21/16 at 14:00 ; Stop 04/21/16 at 14:29; Status DC Diphenhydramine HCl (Benadryl Liq) 25 mg ONCE ONCE PEG Last administered on 14:20; Start 04/21/16 at 15:00; Stop 04/21/16 at 15:01; Status DC Polyethylene Glycol 17 gm 17 gm DAILY G-TUBE Last administered on 04/27/16 10: 05; Start 04/22/16 at 09:00 Cefepime HCl 2000 mg/Sodium Chloride 100 ml @ 200 mls/hr Q12H IV Last administered on 04/29/16 02:16; Start 04/23/16 at 09:00 Sodium Chloride 1,000 ml @ 84 mls/hr [id number] IV Last administered on 13:05; Start 04/23/16 at 10:00 Potassium Phosphate/Sodium Chloride (Potassium Phosphate Inj/NS Inj) 155 ml @ 38.75 mls/ hr ONCE ONCE IV Last administered on 04/24/16 16:28; Start at 12:00; Stop 04/24/16 at 15:59; Status DC Potassium Phosphate (K-Phos) 500 mg Q12HR PO Last administered on 04/28/16 21: 00; Start 04/24/16 at 12:00 Lactobacillus Acidophilus 1 tab 1 tab TID PO Last administered on 04/28/16 18: 05; Start 04/24/16 at 18:00 Sodium Chloride (NS 250 ml Inj) 250 ml @ 15 mls/hr ONCE ONCE IV Last administered on 04/26/16 19:55; Start 04/26/16 at 13:00; Stop 04/27/16 at 05:39 ; Status DC Acetaminophen (Tylenol) 650 mg Q4H PRN PO SEE LABEL COMMENTS; Start 04/26/16 at 13:00; Stop 04/26/16 at 17:01; Status DC Diphenhydramine HCl (Benadryl) 25 mg Q4H PRN PO SEE LABEL COMMENTS; Start 04/26 at 13:00; Stop 04/26/16 at 17:01; Status DC Acetaminophen (Tylenol) 650 mg Q4H PRN PO SEE LABEL COMMENTS Last administered on 04/26/16 23:38; Start 04/26/16 at 18:45; Stop 04/27/16 at 08:00; Status DC Diphenhydramine HCl (Benadryl) 25 mg Q4H PRN PO SEE LABEL COMMENTS Last administered on 04/26/16 23:37; Start 04/26/16 at 18:45; Stop 04/27/16 at 08:00 ; Status DC Diphenhydramine HCl (Benadryl Inj) 50 mg STK-MED ONCE .ROUTE ; Start 04/26/16 at 18:39; Stop 04/26/16 at 18:40; Status DC Diphenhydramine HCl 25 mg 25 mg Q4H PRN IV PRIOR/DURING BLOOD TRANSFUSION; Start 04/26/16 at 19:00 Magnesium Sulfate/ Dextrose 100 ml @ 100 mls/hr ONCE ONCE IV Last administered on 04/27/16 12:46; Start 04/27/16 at 12:00; Stop 04/27/16 at 12:59 ; Status DC Paclitaxel 67.05 mg/Sodium Chloride 261.175 ml @ 261.175 mls/hr ONCE ONCE IV Last administered on 04/28/16 21:43; Start 04/28/16 at 17:00; Stop 04/28/16 at 17:59; Status DC Carboplatin/ Sodium Chloride (Paraplatin Inj/ NS 250 ml Inj) 250 ml @ 500 mls/ hr ONCE ONCE IV Last administered on 04/29/16 00:00; Start 04/28/16 at 18:00 ; Stop 04/28/16 at 18:29; Status DC Granisetron HCl (Kytril Inj) 1 mg ONCE@1600 ONCE IV Last administered on 19:58; Start 04/28/16 at 16:00; Stop 04/28/16 at 16:01; Status DC Famotidine 20 mg 20 mg ONCE@1600 ONCE IV Last administered on 04/28/16 20:13 ; Start 04/28/16 at 16:00; Stop 04/28/16 at 16:01; Status DC Dexamethasone Sodium Phosphate/ Sodium Chloride (Decadron Inj/NS Inj) 52.5 ml @ 210 mls/hr ONCE@1600 ONCE IV Last administered on 04/28/16 19:58; Start at 16:00; Stop 04/28/16 at 16:14; Status DC Diphenhydramine HCl 25 mg 25 mg ONCE@1600 ONCE PO Last administered on 20:18; Start 04/28/16 at 16:00; Stop 04/28/16 at 16:01; Status DC Sodium Chloride (NS 250 ml Inj) 250 ml @ 0 mls/hr ONCE IV Last administered on 04/28/16 21:43; Start 04/28/16 at 14:00; Stop 04/28/16 at 23:00; Status DC A/P Assessment and Plan 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 The mass contains amorphous calcifications and appears to involve the right sternocleidomastoid muscle. The mass appears to extend into the oral cavity with diffuse enlargement of the right tonsillar pillar. CT of the chest and abdomen with possible lung/ liver mets. 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 continue with pain control. general and facial surgery following for debulking next week. -sepsis with possible right facial wound and central line as the source-central line discontinued- one bottle of blood cultures with pseudomonas stutzeri - s/p IV Zosyn total 2 weeks end date April 20- repeated blood cultures 04/09 , 04/19, 04/21 and . Negative CXR. Negative UA. Recurrent fever from infected tumor. Continue Empiric Flagyl April 20 and cefepime April 23. Follow up cultures negative to date. Consider adding IV vancomycin Leukocytosis. will monitor Sinus tachycardia. secondary to sepsis and fever as well as anemia. TSH within normal limits Could also be from anxiety -acute kidney injury/ hyponatremia due to dehydration-- improved - will monitor -hypercalcemia- received a dose of aredia-resolved- will continue to monitor. -anemia due to chemo- s/p PRBC transfusion- will monitor H/H- transfuse to keep Hb > 8 -hypokalemia/hypomagnesemia/hypophosphatemia;replaced. -severe malnutrition- s/p PEG placement-started on tube feeding - band splitter consulted. Patient with intolerance likely contributed by constipation. Continue Reglan and monitor response. previously discussed with RN not to hold tube feeding unless residual over 400 mL. Switch bolus tube feeding which he is tolerating. -Constipation. Monitor hemorrhoidal bleeding -DVT prophylaxis with lovenox and consider discontinuation if worsening rectal bleeding -DNR status palliative care following. Meredith Acosta MD Apr 29, 2016 08:05
[2016-04-29] MEDS: POTASSIUM PHOSPHATE MONOBASIC 500 MG TAB PO SCH ×2 (08:36→20:55)
[2016-04-29] MEDS: MAGNESIUM OXIDE 400 MG TAB GT SCH ×2 (08:36→20:50)
[2016-04-29] MEDS: POTASSIUM CL 40 MEQ/30 ML LIQ UDC NG SCH ×2 (08:36→20:49)
[2016-04-29] MEDS: LACTOBACILLUS ACIDOPHILUS TAB PO SCH ×3 (08:36→17:56)
[2016-04-29] MEDS: POLYETHYLENE GLYCOL 17 GM PKG G-TUBE SCH (08:43)
[2016-04-29] MEDS: DOCUSATE SODIUM 50 MG/SENNA 8.6 MG TAB G-TUBE SCH ×2 (08:43→21:10)
[2016-04-29] MEDS: SODIUM CHLORIDE 0.9% FLUSH 5 ML FLUSH IVF SCH ×2 (08:43→20:56)
[2016-04-29] MEDS: SODIUM CHLOR 0.9% 1000 ML INJ 1,000 ML IV SCH ×2 (09:00→23:39)
--- NOTE | 2016-04-29 09:05 | HHI.PR ---
Subjective Remarks s/p biopsy mass right face/extraction of mandibular teeth, SCCA pt seen and examined. AAOx3, NAD to face brother/nurse at bedside Objective Vital Signs Date Time Temp Pulse Resp B/P Pulse Ox O2 Delivery O2 Flow Rate FiO2 04/29/16 04:00 98.0 105 17 103/59 98 04/29/16 02:30 20 04/29/16 00:12 98.7 94 20 105/62 98 04/29/16 00:00 98.3 100 17 104/68 97 04/28/16 21:53 97.1 101 20 113/67 98 04/28/16 20:00 98.6 110 18 105/59 98 04/28/16 16:00 100.6 112 16 96/54 99 04/28/16 12:00 99.8 115 16 95/60 98 I/O 04/28/16 04/28/16 04/28/16 04/29/16 04/29/16 04/29/16 07:00 15:00 23:00 07:00 15:00 23:00 Intake Total 711 ml 150 ml 60 ml 373 ml Output Total 70.0 ml 130.0 ml Balance 711 ml 80.0 ml -70.0 ml 373 ml Intake Oral 120 ml 150 ml 60 ml IV Total 591 ml 373 ml Tube Feeding Residual Discard 70.0 ml 130.0 ml # Voids 1 3 1 Result Diagram: 04/28/16 1236 04/28/16 1236 Objective Remarks dressing in place , wound/mass hemostatic right face, site stable intraorally, extraction sites hemostatic, healing, whitish regions right intra oral areas - c/w yodit wound margins well approximated, trach midline mass right face has decreased significantly undergoing chemo/rad tx Assessment and Plan Assessment and Plan mass right face/mandible region s/p extraction of teeth/biopsy s/p peg tube/central line invasive squamous cell carcinoma keratinizing continue dressing changes radiation/chemo tx in progress - significant decrease in size of SCCA afebrile recommend antifungal treatment will follow Joseph Macias DMD Apr 29, 2016 09:05
[2016-04-29] MEDS: ENOXAPARIN SODIUM 30 MG/0.3 ML SYRINGE SQ SCH (13:42)
[2016-04-30] VITALS: BP 99/60; PULSE 91; RESP 17; TEMP 96.3; O2SAT 98
[2016-04-30] MEDS: metroNIDAZOLE 500 MG INJ 100 ML IV SCH ×4 (01:09→20:23)
[2016-04-30 04:00] VITALS: BP 89/58; PULSE 87; RESP 16; TEMP 96; O2SAT 98
[2016-04-30] MEDS: FREE WATER G-TUBE SCH ×4 (06:00→22:36)
[2016-04-30] MEDS: METOCLOPRAMIDE HCL SYRUP 10 MG/10 ML UDC G-TUBE SCH ×4 (06:26→22:28)
[2016-04-30 08:00] VITALS: BP 146/79; PULSE 79; RESP 16; TEMP 97.5; O2SAT 96
[2016-04-30] MEDS: LACTOBACILLUS ACIDOPHILUS TAB PO SCH ×3 (08:19→17:20)
[2016-04-30] MEDS: POTASSIUM PHOSPHATE MONOBASIC 500 MG TAB PO SCH ×2 (08:19→22:28)
[2016-04-30] MEDS: MAGNESIUM OXIDE 400 MG TAB GT SCH ×2 (08:19→22:27)
[2016-04-30] MEDS: DOCUSATE SODIUM 50 MG/SENNA 8.6 MG TAB G-TUBE SCH ×2 (08:19→20:37)
[2016-04-30] MEDS: POTASSIUM CL 40 MEQ/30 ML LIQ UDC NG SCH ×2 (08:19→22:28)
[2016-04-30] MEDS: SODIUM CHLOR 0.9% 1000 ML INJ 1,000 ML IV SCH ×2 (08:20→20:24)
[2016-04-30] MEDS: CEFEPIME INJ 2,000 MG in SODIUM CHLORIDE 0.9% INJ 100 ML IV SCH ×2 (08:20→22:25)
[2016-04-30] MEDS: SODIUM CHLORIDE 0.9% FLUSH 5 ML FLUSH IVF SCH ×2 (08:20→22:28)
[2016-04-30] MEDS: POLYETHYLENE GLYCOL 17 GM PKG G-TUBE SCH (08:20)
[2016-04-30] MEDS: ACETAMINOPHEN 325MG/HYDROcodone 7.5MG/15ML UDC PO PRN (08:36)
--- NOTE | 2016-04-30 11:27 | HHI.PR ---
Subjective Remarks f/u for [employer] use. Nurse and patient's brother at bedside. Patient has no complaints. Denied any pain, N/V, or SOB. he stated he is doing well. Objective Vitals Vital Signs Date Time Temp Pulse Resp B/P Pulse Ox O2 Delivery O2 Flow Rate FiO2 04/30/16 08:00 97.5 79 16 146/79 96 04/30/16 04:00 96.0 87 16 89/58 98 04/30/16 00:00 96.3 91 17 99/60 98 04/29/16 22:28 20 04/29/16 20:00 96.5 95 16 105/64 98 04/29/16 16:00 97.2 85 16 108/59 98 04/29/16 12:59 97.3 90 16 98/57 97 I/O 04/29/16 04/29/16 04/29/16 04/30/16 04/30/16 04/30/16 07:00 15:00 23:00 07:00 15:00 23:00 Intake Total 373 ml 680 ml 1483 ml 686 ml 440 ml Balance 373 ml 680 ml 1483 ml 686 ml 440 ml IV Total 373 ml 1043 ml 686 ml Tube Feeding 240 ml Tube Irrigant 480 ml 240 ml Other 200 ml 200 ml 200 ml # Voids 2 2 1 Result Diagram: 04/28/16 1236 04/28/16 1236 Imaging Last Impressions Chest X-Ray 04/23/16 0000 Signed Impressions: Service Date/Time: Saturday, April 23, 2016 11:08 - CONCLUSION: No acute cardiopulmonary disease identified. Prabhu Jang MD Liver Ultrasound 04/12/16 0000 Signed Impressions: Service Date/Time: Tuesday, April 12, 2016 22:29 - CONCLUSION: 1. Solid indeterminate mass in the left lobe of the liver as well as a tiny cyst. An MRI of the abdomen with without contrast may be helpful for further assessment if felt clinically warranted. The possibility of a metastatic lesion is not excluded. 2. Cholelithiasis. 3. Bilateral pleural effusions are suspected sonographically. Chau Ward MD Chest CT 04/11/16 0000 Signed Impressions: Service Date/Time: Monday, April 11, 2016 14:09 - CONCLUSION: 1. Multiple small scattered noncalcified pulmonary nodules which are nonspecific but are of concern for early metastatic disease. 2. The known large tumor mass in the right side of the face and neck is partially visualized with destructive change involving the right side of the mandible. This extends into the right supraclavicular region. Please see soft tissue neck CT for further details. 3. Low attenuation lesion in the left lobe of the liver again noted. Holland Villegas MD Abdomen/Pelvis CT 04/11/16 0000 Signed Impressions: Service Date/Time: Monday, April 11, 2016 14:09 - CONCLUSION: 1. 1.4 cm low-attenuation lesion left lobe of the liver of concern for a metastasis. There is a smaller more cystic appearing structure in the right lobe. 2. The remainder of the study is unremarkable except for a PEG tube in the stomach. Holland Villegas MD Upper Extremity Ultrasound 04/08/16 0000 Signed Impressions: Service Date/Time: Friday, April 08, 2016 13:04 - CONCLUSION: No thrombus. Deshawn Michele MD Neck CT 04/02/16 0000 Signed Impressions: Service Date/Time: Saturday, April 02, 2016 11:54 - CONCLUSION: Very large heterogeneous soft tissue mass along the right side of the face with gross destruction involving most of the right mandible. The mass contains amorphous calcifications and appears to involve the right sternocleidomastoid muscle. The mass appears to extend into the oral cavity with diffuse enlargement of the right tonsillar pillar. Neoplastic disease in the primary consideration. Niall Corrales MD Multiplanar Reconstruction 04/02/16 0000 Signed Impressions: Service Date/Time: Saturday, April 02, 2016 11:54 - CONCLUSION: 3-D reconstructive images demonstrating destruction involving most the right side of the mandible. Niall Corrales MD Head CT 04/02/16 0000 Signed Impressions: Service Date/Time: Saturday, April 02, 2016 11:54 - CONCLUSION: 1. Unremarkable CT scan of the brain 2. Large abnormal soft tissue mass with calcifications along the right side of the face. Niall Corrales MD Objective Remarks Gen NAD HEENT: large ulcerating lesion on right side of face. CV RRR. no r/m/g Resp CTA B/L Abd soft NDNT Procedures central line placement PEG placement bone biopsy teeth extraction Medications and IVs Current Medications Sodium Chloride (NS 1000 ml Inj) 1,000 ml @ 75 mls/hr [id number] IV Last administered on 04/02/16 02:38; Start 04/02/16 at 01:45; Stop 04/02/16 at 08:25 ; Status DC Morphine Sulfate (Morphine Inj) 2 mg Q2H PRN IV BREAKTHROUGH PAIN Last administered on 04/02/16 02:38; Start 04/02/16 at 01:45; Stop 04/08/16 at 09:45 ; Status DC Ondansetron HCl 4 mg 4 mg Q6H PRN IV PUSH NAUSEA Last administered on 02:38; Start 04/02/16 at 01:45 Sodium Chloride 500 ml @ 0 mls/hr BOLUS ONCE IV Last administered on 04:00; Start 04/02/16 at 04:00; Stop 04/02/16 at 04:01; Status DC Potassium Chloride/Dextrose/ Sod Cl (D5-NS + KCl 20 Meq Inj) 1,000 ml @ 125 mls /hr Q8H IV Last administered on 04/03/16 11:51; Start 04/02/16 at 09:00; Stop 04/04/16 at 08:51; Status DC IV Flush (NS Flush) 2 ml UNSCH PRN IVF FLUSH AFTER USING IV ACCESS Last administered on 04/17/16 05:08; Start 04/02/16 at 08:15 IV Flush (NS Flush) 2 ml BID IVF Last administered on 04/29/16 20:56; Start at 09:00 Acetaminophen (Tylenol) 650 mg Q4H PRN PO PAIN SCALE 1 TO 10; Start 04/02/16 at 09:00; Stop 04/02/16 at 09:00; Status DC Ibuprofen (Motrin) 600 mg Q4H PRN PO PAIN SCALE 1 TO 5; Start 04/02/16 at 08:15 ; Stop 04/02/16 at 08:49; Status DC Hydromorphone HCl (Dilaudid Pf Inj) 0.5 mg Q2H PRN IV PAIN SCALE 6 TO 10; Start 04/02/16 at 08:15; Stop 04/02/16 at 08:49; Status DC Diphenhydramine HCl (Benadryl) 25 mg Q6H PRN PO ITCHING Last administered on 04:30; Start 04/02/16 at 09:00 Miscellaneous Information (Post-op Orders (for Pharmacy)) STAT ONCE XX ; Start 04/02/16 at 08:15; Stop 04/03/16 at 06:06; Status DC Miscellaneous Information 1 ONCE ONCE XX ; Start 04/02/16 at 08:15; Stop at 06:06; Status DC Enoxaparin Sodium (Lovenox Inj) 30 mg Q24H SQ Last administered on 04/29/16 13 :42; Start 04/04/16 at 15:30 Naloxone HCl (Narcan Inj) 0.4 mg UNSCH PRN IV RESPIRATORY RATE LESS THAN 10; Start 04/02/16 at 08:15; Stop 04/02/16 at 08:49; Status DC Diphenhydramine HCl (Benadryl Inj) 25 mg Q6H PRN IV ITCHING; Start 04/02/16 at 09:00; Stop 04/02/16 at 09:00; Status DC PROMOTIONAL MARKETING ANALYST Dosage Infused (Pha) 1 Q8HR .XX ; Start 04/02/16 at 09:00; Stop 04/02/16 at 09:00; Status DC Acetaminophen/ Hydrocodone Bitart (Hycet 325-7.5 Mg Liq) 15 ml Q4H PRN PO Last administered on 04/08/16 10:31; Start 04/02/16 at 09:00; Stop 04/08/16 at 14 :40; Status DC Ibuprofen (Motrin Liq) 600 mg Q4H PRN PO PAIN SCALE 1-5; Start 04/02/16 at 09: 00; Stop 04/02/16 at 09:02; Status DC Ibuprofen 600 mg 600 mg Q4H PRN PO PAIN SCALE 1-5; Start 04/02/16 at 09:02; Stop 04/14/16 at 08:27; Status DC Sodium Chloride (NS 500 ml Inj) 500 ml @ 30 mls/hr [id number] IV ; Start 04/03/16 at 03:15; Stop 04/04/16 at 03:14; Status DC Bupivacaine HCl/ Epinephrine Bitart (Sensorcaine-Epinephrine Pf 0.25% Inj) 20 ml STK-MED ONCE .ROUTE ; Start 04/03/16 at 13:46; Stop 04/03/16 at 13:47; Status DC Chlorhexidine Gluconate (Peridex 0.12% Liq) 60 ml STK-MED ONCE .ROUTE ; Start at 13:46; Stop 04/03/16 at 13:47; Status DC Heparin Sodium (Porcine) (Heparin Inj) 10,000 units STK-MED ONCE .ROUTE ; Start 04/03/16 at 13:46; Stop 04/03/16 at 13:47; Status DC Heparin Sodium (Porcine) (Heparin Inj) 10,000 units STK-MED ONCE .ROUTE ; Start 04/03/16 at 13:46; Stop 04/03/16 at 13:47; Status DC Cefazolin Sodium (Ancef Inj) 1,000 mg STK-MED ONCE IV Last administered on 04/03 14:43; Start 04/03/16 at 14:43; Stop 04/03/16 at 15:03; Status DC Lidocaine/ Epinephrine (Xylocaine-Epi 1%-1:100,000 Inj) 50 ml STK-MED ONCE .ROUTE ; Start 04/03/16 at 15:35; Stop 04/03/16 at 15:36; Status DC Lidocaine/ Epinephrine (Xylocaine-Epi 2%-1:100,000 Inj) 30 ml STK-MED ONCE .ROUTE Last administered on 04/03/16 16:01; Start 04/03/16 at 15:35; Stop at 15:36; Status DC Microfibriller Collagen Hemostat (Avitene Powder Pack) 1 gm STK-MED ONCE .ROUTE ; Start 04/03/16 at 15:41; Stop 04/03/16 at 15:42; Status DC Fentanyl Citrate 250 mcg 250 mcg STK-MED ONCE .ROUTE ; Start 04/03/16 at 16:34; Stop 04/03/16 at 16:35; Status DC Sodium Chloride 11 meq/Sodium Acetate 59 meq/ Potassium Chloride 40 meq/ Magnesium Chloride 10 meq/ Multivitamins 10 ml/Folic Acid 1 mg/Amino Acids/ Dextrose 2,067.5261 ml @ 83 mls/hr Q24H IV-CENTRAL Last administered on 22:27; Start 04/03/16 at 20:00; Stop 04/08/16 at 09:30; Status DC Fat Emulsion Intravenous (Liposyn Iii 20% Inj) 250 ml @ 10 mls/hr Q24H IV- CENTRAL Last administered on 04/06/16 22:26; Start 04/03/16 at 20:00; Stop 04/08 at 09:31; Status DC Morphine Sulfate (*morphine INJ PERIprocedure ONLY) 8 mg STK-MED ONCE .ROUTE Last administered on 04/03/16 17:22; Start 04/03/16 at 17:22; Stop 04/03/16 at 17:23; Status DC Miscellaneous Information ALL NURSING DEPARTME... UNSCH PRN XX SEE LABEL COMMENTS; Start 04/03/16 at 16:28; Stop 04/04/16 at 16:27; Status DC Potassium Chloride 100 ml @ 50 mls/hr Q2H IV Last administered on 04/04/16 01 :52; Start 04/03/16 at 21:45; Stop 04/04/16 at 01:44; Status DC Magnesium Sulfate/ Dextrose (Magnesium Sulfate 1 Gm Premix) 100 ml @ 100 mls/ hr Q1H IV Last administered on 04/04/16 00:16; Start 04/03/16 at 21:45; Stop 04/03/16 at 23:44; Status DC Water (Free Water) VOLUME: 200 ML Q6HR G-TUBE Last administered on 04/30/16 06 :00; Start 04/04/16 at 08:45 Potassium Chloride (KCl 40 Meq/30 ml Liq) 40 meq ONCE ONCE PEG Last administered on 04/04/16 10:45; Start 04/04/16 at 10:45; Stop 04/04/16 at 10:50 ; Status DC Propofol (Diprivan 200 Mg/20 ml Inj) 200 mg STK-MED ONCE IV ; Start 04/03/16 at 10:46; Stop 04/04/16 at 10:46; Status DC Phenylephrine HCl (Neosynephrine/ NS 1000 Mcg/10ml Syr) 1,000 mcg STK-MED ONCE IV ; Start 04/03/16 at 10:46; Stop 04/04/16 at 10:46; Status DC Ondansetron HCl 4 mg 4 mg STK-MED ONCE IV PUSH ; Start 04/03/16 at 10:46; Stop 04/04/16 at 10:46; Status DC Lactated Ringer's 1,000 ml @ As Directed STK-MED ONCE IV ; Start 04/03/16 at 10 :46; Stop 04/04/16 at 10:46; Status DC Pamidronate Disodium/Sodium Chloride (Aredia Inj/NS 1000 ml Inj) 1,000 ml @ 42 mls/hr ONCE ONCE IV Last administered on 04/04/16 23:37; Start 04/04/16 at 22 :00; Stop 04/05/16 at 21:48; Status DC Potassium Chloride 40 meq 40 meq ONCE ONCE PEG Last administered on 04/05/16 15:12; Start 04/05/16 at 12:00; Stop 04/05/16 at 12:01; Status DC Levofloxacin/ Dextrose 100 ml @ 100 mls/hr Q24H IV Last administered on 22:27; Start 04/06/16 at 18:00; Stop 04/07/16 at 09:06; Status DC Sodium Chloride (NS 1000 ml Inj) 1,000 ml @ 0 mls/hr BOLUS ONCE IV Last administered on 04/07/16 01:00; Start 04/07/16 at 01:00; Stop 04/07/16 at 01:01; Status DC Acetaminophen (Tylenol) 650 mg Q4H PRN PO FEVER OVER 101.0 Last administered on 04/26/16 12:22; Start 04/07/16 at 01:45 Metoprolol Tartrate 25 mg 25 mg ONCE ONCE PO Last administered on 04/07/16 03: 16; Start 04/07/16 at 03:15; Stop 04/07/16 at 03:16; Status DC Potassium Chloride/Dextrose/ Sod Cl (D5-NS + KCl 20 Meq Inj) 1,000 ml @ 42 mls/ hr [id number] IV Last administered on 04/15/16 06:17; Start 04/07/16 at 07:45; Stop 04/16/16 at 09:02; Status DC Potassium Chloride 40 meq 40 meq ONCE ONCE PO Last administered on 04/07/16 08 :15; Start 04/07/16 at 08:15; Stop 04/07/16 at 08:18; Status DC Cefepime HCl 2000 mg/Sodium Chloride 100 ml @ 200 mls/hr Q12H IV Last administered on 04/07/16 09:00; Start 04/07/16 at 09:00; Stop 04/07/16 at 09:07; Status DC Piperacillin Sod/ Tazobactam Sod 50 ml @ 100 mls/hr Q6H IV Last administered on 04/20/16 05:04; Start 04/07/16 at 11:00; Stop 04/20/16 at 10:59; Status DC Magnesium Sulfate/ Dextrose (Magnesium Sulfate 1 Gm Premix) 100 ml @ 100 mls/ hr ONCE ONCE IV Last administered on 04/07/16 15:30; Start 04/07/16 at 13:15; Stop 04/07/16 at 14:14; Status DC Potassium Chloride (KCl 40 Meq/30 ml Liq) 40 meq ONCE ONCE PEG Last administered on 04/07/16 15:30; Start 04/07/16 at 13:15; Stop 04/07/16 at 13:16; Status DC Lidocaine HCl (Xylocaine 1% Inj (50 ml)) 50 ml STK-MED ONCE .ROUTE ; Start at 15:46; Stop 04/07/16 at 15:47; Status DC Metoprolol Tartrate (Lopressor) 25 mg ONCE ONCE PO ; Start 04/08/16 at 00:15; Stop 04/08/16 at 00:16; Status DC Morphine Sulfate (Morphine Inj) 2 mg Q4HR IV ; Start 04/08/16 at 12:00; Stop 12/19 at 08:27; Status DC Morphine Sulfate 2 mg 2 mg Q2HR PRN IV PUSH PAIN SCALE 9 TO 10; Start 04/08/16 at 09:00 Potassium Chloride (KCl 20 Meq Premix Inj) 100 ml @ 50 mls/hr Q2H IV Last administered on 04/08/16 18:59; Start 04/08/16 at 12:00; Stop 04/08/16 at 15:59; Status DC Potassium Chloride (KCl 40 Meq/30 ml Liq) 40 meq Q12HR NG Last administered on 04/30/16 08:19; Start 04/08/16 at 12:00 Acetaminophen/ Hydrocodone Bitart 15 ml 15 ml Q3HR PRN PO pain1-9 Last administered on 04/30/16 08:36; Start 04/08/16 at 14:45 Potassium Chloride (KCl 20 Meq Premix Inj) 100 ml @ As Directed STK-MED ONCE .ROUTE ; Start 04/08/16 at 18:57; Stop 04/08/16 at 18:58; Status DC Magnesium Oxide (Mag-Ox) 400 mg Q12HR PEG Last administered on 04/12/16 22:14; Start 04/10/16 at 14:45; Stop 04/12/16 at 21:00; Status DC Potassium Chloride 40 meq 40 meq ONCE ONCE PEG ; Start 04/11/16 at 09:00; Stop 04/11/16 at 09:35; Status DC Magnesium Sulfate/ Dextrose (Magnesium Sulfate 1 Gm Premix) 100 ml @ 100 mls/ hr ONCE ONCE IV Last administered on 04/11/16 10:03; Start 04/11/16 at 09:00; Stop 04/11/16 at 09:59; Status DC Iohexol 95 ml 95 ml STK-MED ONCE IV Last administered on 04/11/16 14:39; Start 04/11/16 at 14:39; Stop 04/11/16 at 14:40; Status DC Sodium Chloride (NS 250 ml Inj) 250 ml @ 0 mls/hr ONCE@1800 ONCE IV ; Start 04/13/16 at 18:00; Stop 04/13/16 at 18:01; Status DC Granisetron HCl (Kytril Inj) 1 mg ONCE@1700 ONCE IV PUSH Last administered on 04/13/16 18:10; Start 04/13/16 at 17:00; Stop 04/13/16 at 17:01; Status DC Famotidine 20 mg 20 mg ONCE@1700 ONCE IV PUSH Last administered on 04/13/16 18 :09; Start 04/13/16 at 17:00; Stop 04/13/16 at 17:01; Status DC Dexamethasone Sodium Phosphate/ Sodium Chloride (Decadron Inj/NS Inj) 52.5 ml @ 210 mls/hr ONCE@1700 ONCE IV Last administered on 04/13/16 17:23; Start 04/13 at 17:00; Stop 04/13/16 at 17:14; Status DC Diphenhydramine HCl 25 mg 25 mg ONCE@1700 ONCE PO Last administered on 17:23; Start 04/13/16 at 17:00; Stop 04/13/16 at 17:01; Status DC Paclitaxel 69.75 mg/Sodium Chloride 261.625 ml @ 130.813 mls/hr ONCE@1800 ONCE IV Last administered on 04/13/16 19:37; Start 04/13/16 at 18:00; Stop at 19:59; Status DC Carboplatin/ Sodium Chloride (Paraplatin Inj/ NS 250 ml Inj) 250 ml @ 500 mls/ hr ONCE@21 ONCE IV Last administered on 04/13/16 21:59; Start 04/13/16 at 21:00 ; Stop 04/13/16 at 21:29; Status DC Hyoscyamine Sulfate (Levsin Inj) 0.25 mg ONCE ONCE IVP Last administered on 19:45; Start 04/14/16 at 19:45; Stop 04/14/16 at 19:46; Status DC Magnesium Oxide 400 mg 400 mg Q12HR GT Last administered on 04/17/16 08:57; Start 04/15/16 at 09:00; Stop 04/17/16 at 13:59; Status DC Magnesium Sulfate/ Dextrose (Magnesium Sulfate 1 Gm Premix) 100 ml @ 100 mls/ hr ONCE ONCE IV Last administered on 04/15/16 09:25; Start 04/15/16 at 09:00 ; Stop 04/15/16 at 09:59; Status DC Docusate Sodium (Colace Liq) 100 mg BID PRN GT CONSTIPATION; Start 04/15/16 at 12:15 Senna/Docusate Sodium (Clara-Colace) 2 tab BID G-TUBE Last administered on 08:19; Start 04/15/16 at 21:00 Lactulose (Lactulose Liq) 30 ml TID PRN G-TUBE CONSTIPATION; Start 04/15/16 at 12:15 Bisacodyl (Dulcolax Supp) 10 mg DAILY PRN CO CONSTIPATION; Start 04/15/16 at 12 :15 Magnesium Hydroxide 30 ml 30 ml Q6H PRN GT CONSTIPATION; Start 04/15/16 at 12: 15 Magnesium Sulfate/ Dextrose (Magnesium Sulfate 1 Gm Premix) 100 ml @ 100 mls/ hr ONCE ONCE IV Last administered on 04/15/16 13:00; Start 04/15/16 at 13:00 ; Stop 04/15/16 at 13:59; Status DC Potassium Chloride (KCl 40 Meq/30 ml Liq) 40 meq ONCE ONCE G-TUBE Last administered on 04/16/16 09:00; Start 04/16/16 at 09:00; Stop 04/16/16 at 09:02 ; Status DC Metoclopramide HCl 5 mg 5 mg ACHS G-TUBE Last administered on 04/19/16 11:30; Start 04/16/16 at 11:00; Stop 04/19/16 at 13:58; Status DC Magnesium Sulfate/ Dextrose (Magnesium Sulfate 1 Gm Premix) 100 ml @ 100 mls/ hr ONCE ONCE IV Last administered on 04/16/16 16:56; Start 04/16/16 at 14:45 ; Stop 04/16/16 at 15:44; Status DC Padimate O (Chapstick) 1 applic UNSCH PRN TOP DISCOMFORT Last administered on 00:01; Start 04/17/16 at 10:00 Magnesium Oxide 800 mg 800 mg Q12HR GT Last administered on 04/30/16 08:19; Start 04/17/16 at 21:00 Magnesium Sulfate/ Dextrose (Magnesium Sulfate 1 Gm Premix) 100 ml @ 100 mls/ hr Q1H IV Last administered on 04/17/16 18:34; Start 04/17/16 at 14:00; Stop 04/17/16 at 15:59; Status DC Potassium Chloride 20 meq 20 meq ONCE ONCE GT Last administered on 04/17/16 14:47; Start 04/17/16 at 14:00; Stop 04/17/16 at 14:04; Status DC Magnesium Sulfate/ Dextrose (Magnesium Sulfate 1 Gm Premix) 100 ml @ 100 mls/ hr Q1H IV ; Start 04/17/16 at 18:30; Stop 04/17/16 at 19:29; Status DC Potassium Chloride (KCl 40 Meq/30 ml Liq) 40 meq ONCE ONCE PO Last administered on 04/18/16 09:09; Start 04/18/16 at 08:00; Stop 04/18/16 at 08:01 ; Status DC Metoclopramide HCl 10 mg 10 mg ACHS G-TUBE Last administered on 04/30/16 06:26 ; Start 04/19/16 at 16:00 Metronidazole (Flagyl 500 Mg Inj) 100 ml @ 100 mls/hr Q6H IV Last administered on 04/30/16 07:58; Start 04/20/16 at 14:00; Stop 05/04/16 at 13:59 Potassium Chloride (KCl) 30 meq ONCE ONCE PO ; Start 04/20/16 at 13:45; Stop at 13:47; Status DC Granisetron HCl (Kytril Inj) 1 mg ONCE@1700 ONCE IV PUSH Last administered on 04/21/16 14:20; Start 04/21/16 at 12:00; Stop 04/21/16 at 12:01; Status DC Famotidine 20 mg 20 mg ONCE ONCE IV PUSH Last administered on 04/21/16 14:20 ; Start 04/21/16 at 12:00; Stop 04/21/16 at 12:01; Status DC Sodium Chloride 250 ml @ 0 mls/hr ONCE ONCE IV Last administered on 04/21/16 14:30; Start 04/21/16 at 12:00; Stop 04/21/16 at 12:01; Status DC Dexamethasone Sodium Phosphate/ Sodium Chloride (Decadron Inj/NS Inj) 52.5 ml @ 210 mls/hr ONCE ONCE IV Last administered on 04/21/16 14:20; Start at 12:00; Stop 04/21/16 at 12:14; Status DC Diphenhydramine HCl 25 mg 25 mg ONCE ONCE PO ; Start 04/21/16 at 12:00; Stop at 12:01; Status DC Paclitaxel 67.05 mg/Sodium Chloride 261.175 ml @ 261.625 mls/hr ONCE ONCE IV Last administered on 04/21/16 14:47; Start 04/21/16 at 13:00; Stop 04/21/16 at 13:59; Status DC Carboplatin/ Sodium Chloride (Paraplatin Inj/ NS 250 ml Inj) 250 ml @ 500 mls/ hr ONCE ONCE IV Last administered on 04/21/16 16:12; Start 04/21/16 at 14:00 ; Stop 04/21/16 at 14:29; Status DC Diphenhydramine HCl (Benadryl Liq) 25 mg ONCE ONCE PEG Last administered on 14:20; Start 04/21/16 at 15:00; Stop 04/21/16 at 15:01; Status DC Polyethylene Glycol 17 gm 17 gm DAILY G-TUBE Last administered on 04/27/16 10: 05; Start 04/22/16 at 09:00 Cefepime HCl 2000 mg/Sodium Chloride 100 ml @ 200 mls/hr Q12H IV Last administered on 04/30/16 08:20; Start 04/23/16 at 09:00 Sodium Chloride 1,000 ml @ 84 mls/hr [id number] IV Last administered on 08:20; Start 04/23/16 at 10:00 Potassium Phosphate/Sodium Chloride (Potassium Phosphate Inj/NS Inj) 155 ml @ 38.75 mls/ hr ONCE ONCE IV Last administered on 04/24/16 16:28; Start at 12:00; Stop 04/24/16 at 15:59; Status DC Potassium Phosphate (K-Phos) 500 mg Q12HR PO Last administered on 04/30/16 08: 19; Start 04/24/16 at 12:00 Lactobacillus Acidophilus 1 tab 1 tab TID PO Last administered on 04/30/16 08: 19; Start 04/24/16 at 18:00 Sodium Chloride (NS 250 ml Inj) 250 ml @ 15 mls/hr ONCE ONCE IV Last administered on 04/26/16 19:55; Start 04/26/16 at 13:00; Stop 04/27/16 at 05:39 ; Status DC Acetaminophen (Tylenol) 650 mg Q4H PRN PO SEE LABEL COMMENTS; Start 04/26/16 at 13:00; Stop 04/26/16 at 17:01; Status DC Diphenhydramine HCl (Benadryl) 25 mg Q4H PRN PO SEE LABEL COMMENTS; Start 04/26 at 13:00; Stop 04/26/16 at 17:01; Status DC Acetaminophen (Tylenol) 650 mg Q4H PRN PO SEE LABEL COMMENTS Last administered on 04/26/16 23:38; Start 04/26/16 at 18:45; Stop 04/27/16 at 08:00; Status DC Diphenhydramine HCl (Benadryl) 25 mg Q4H PRN PO SEE LABEL COMMENTS Last administered on 04/26/16 23:37; Start 04/26/16 at 18:45; Stop 04/27/16 at 08:00 ; Status DC Diphenhydramine HCl (Benadryl Inj) 50 mg STK-MED ONCE .ROUTE ; Start 04/26/16 at 18:39; Stop 04/26/16 at 18:40; Status DC Diphenhydramine HCl 25 mg 25 mg Q4H PRN IV PRIOR/DURING BLOOD TRANSFUSION; Start 04/26/16 at 19:00 Magnesium Sulfate/ Dextrose 100 ml @ 100 mls/hr ONCE ONCE IV Last administered on 04/27/16 12:46; Start 04/27/16 at 12:00; Stop 04/27/16 at 12:59 ; Status DC Paclitaxel 67.05 mg/Sodium Chloride 261.175 ml @ 261.175 mls/hr ONCE ONCE IV Last administered on 04/28/16 21:43; Start 04/28/16 at 17:00; Stop 04/28/16 at 17:59; Status DC Carboplatin/ Sodium Chloride (Paraplatin Inj/ NS 250 ml Inj) 250 ml @ 500 mls/ hr ONCE ONCE IV Last administered on 04/29/16 00:00; Start 04/28/16 at 18:00 ; Stop 04/28/16 at 18:29; Status DC Granisetron HCl (Kytril Inj) 1 mg ONCE@1600 ONCE IV Last administered on 19:58; Start 04/28/16 at 16:00; Stop 04/28/16 at 16:01; Status DC Famotidine 20 mg 20 mg ONCE@1600 ONCE IV Last administered on 04/28/16 20:13 ; Start 04/28/16 at 16:00; Stop 04/28/16 at 16:01; Status DC Dexamethasone Sodium Phosphate/ Sodium Chloride (Decadron Inj/NS Inj) 52.5 ml @ 210 mls/hr ONCE@1600 ONCE IV Last administered on 04/28/16 19:58; Start at 16:00; Stop 04/28/16 at 16:14; Status DC Diphenhydramine HCl 25 mg 25 mg ONCE@1600 ONCE PO Last administered on 2/24/ 17at 20:18; Start 04/28/16 at 16:00; Stop 04/28/16 at 16:01; Status DC Sodium Chloride (NS 250 ml Inj) 250 ml @ 0 mls/hr ONCE IV Last administered on 04/28/16 21:43; Start 04/28/16 at 14:00; Stop 04/28/16 at 23:00; Status DC A/P Assessment and Plan squamous cell carcinoma of the oropharynx -CT of the face with very large heterogeneous soft tissue mass along the right side of the face with gross destruction involving most of the right mandible. The mass contains amorphous calcifications and appears to involve the right sternocleidomastoid muscle. The mass appears to extend into the oral cavity with diffuse enlargement of the right tonsillar pillar. CT of the chest and abdomen with possible lung/ liver mets. 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 continue with pain control. general and facial surgery following for debulking next week. -sepsis with possible right facial wound and central line as the source-central line discontinued- one bottle of blood cultures with pseudomonas stutzeri - s/p IV Zosyn total 2 weeks end date April 20- repeated blood cultures 04/09 , 04/19, 04/21 and . Negative CXR. Negative UA. Recurrent fever from infected tumor. Continue Empiric Flagyl April 20 and cefepime April 23. Follow up cultures negative to date. Leukocytosis. will monitor Sinus tachycardia. secondary to sepsis and fever as well as anemia. TSH within normal limits Could also be from anxiety -acute kidney injury/ hyponatremia due to dehydration-- improved - will monitor -hypercalcemia- received a dose of aredia-resolved- will continue to monitor. -anemia due to chemo- s/p PRBC transfusion- will monitor H/H- transfuse to keep Hb > 8 -hypokalemia/hypomagnesemia/hypophosphatemia;replaced. -severe malnutrition- s/p PEG placement-started on tube feeding - electrical engineering professor consulted. Patient with intolerance likely contributed by constipation. Continue Reglan and monitor response. previously discussed with RN not to hold tube feeding unless residual over 400 mL. Switch bolus tube feeding which he is tolerating. -Constipation. Monitor hemorrhoidal bleeding -DVT prophylaxis with lovenox and consider discontinuation if worsening rectal bleeding -DNR status palliative care following. d./w patient, nurse, and brother. Magui Marcus MD Apr 30, 2016 11:27
[2016-04-30 12:00] VITALS: BP 97/53; PULSE 98; RESP 16; TEMP 97.9; O2SAT 98
[2016-04-30 16:00] VITALS: BP 115/55; PULSE 118; RESP 16; TEMP 99; O2SAT 98
[2016-04-30] MEDS: ENOXAPARIN SODIUM 30 MG/0.3 ML SYRINGE SQ SCH (17:20)
[2016-04-30 20:00] VITALS: BP 92/59; PULSE 118; RESP 17; TEMP 98.8; O2SAT 98
[2016-05-01] VITALS: BP 105/56; PULSE 114; RESP 18; TEMP 99.4; O2SAT 98
[2016-05-01] MEDS: metroNIDAZOLE 500 MG INJ 100 ML IV SCH ×3 (02:40→14:30)
[2016-05-01] MEDS: ACETAMINOPHEN 325MG/HYDROcodone 7.5MG/15ML UDC PO PRN ×3 (03:08→21:28)
[2016-05-01 04:00] VITALS: BP 106/56; PULSE 111; RESP 18; TEMP 99.8; O2SAT 97
[2016-05-01] MEDS: METOCLOPRAMIDE HCL SYRUP 10 MG/10 ML UDC G-TUBE SCH ×4 (06:18→23:03)
[2016-05-01] MEDS: FREE WATER G-TUBE SCH ×4 (06:20→23:22)
[2016-05-01 07:22] LABS: INTERNATIONAL NORMALIZED RATIO 1.3 RATIO; PROTHROMBIN TIME - PATIENT 14.6 SEC (9.8-11.6)
[2016-05-01 07:40] LABS: ALKALINE PHOSPHATASE 121 U/L (45-117); ALT (GPT) 14 U/L (12-78); ANION GAP 10 MEQ/L (5-15); AST (GOT) 21 U/L (15-37); BICARBONATE 24.5 MEQ/L (21.0-32.0); BLOOD UREA NITROGEN 9 MG/DL (7-18); CHLORIDE 100 MEQ/L (98-107); GLOMERULAR FILTRATION RATE 284 ML/MIN (>89); MAGNESIUM 1.4 MG/DL (1.5-2.5); POTASSIUM 3.9 MEQ/L (3.5-5.1); SODIUM (NA) 134 MEQ/L (136-145); TOTAL BILIRUBIN ADULT 0.2 MG/DL (0.2-1.0)
[2016-05-01 08:00] VITALS: BP 107/60; PULSE 108; RESP 20; TEMP 98.2; O2SAT 99
[2016-05-01] MEDS: POTASSIUM PHOSPHATE MONOBASIC 500 MG TAB PO SCH ×2 (08:36→23:04)
[2016-05-01] MEDS: LACTOBACILLUS ACIDOPHILUS TAB PO SCH ×3 (08:36→17:30)
[2016-05-01] MEDS: POTASSIUM CL 40 MEQ/30 ML LIQ UDC NG SCH ×2 (08:37→23:03)
[2016-05-01] MEDS: MAGNESIUM OXIDE 400 MG TAB GT SCH ×2 (08:37→23:03)
[2016-05-01] MEDS: POLYETHYLENE GLYCOL 17 GM PKG G-TUBE SCH (08:50)
[2016-05-01] MEDS: SODIUM CHLORIDE 0.9% FLUSH 5 ML FLUSH IVF SCH ×2 (08:50→23:02)
[2016-05-01] MEDS: DOCUSATE SODIUM 50 MG/SENNA 8.6 MG TAB G-TUBE SCH ×2 (08:50→21:00)
[2016-05-01] MEDS: CEFEPIME INJ 2,000 MG in SODIUM CHLORIDE 0.9% INJ 100 ML IV SCH (10:39)
[2016-05-01 12:00] VITALS: BP 117/58; PULSE 110; RESP 16; TEMP 99.5; O2SAT 98
[2016-05-01 13:55] LABS: HEMATOCRIT 26.4 % (39.0-51.0); MEAN CELL VOLUME 88.5 FL (80.0-100.0); MEAN CORPUSCULAR HEMOGLOBIN 29.3 PG (27.0-34.0); MEAN CORPUSCULAR HGB CONC 33.1 % (32.0-36.0); PLATELET COUNT 323 TH/MM3 (150-450); RED BLOOD COUNT 2.99 MIL/MM3 (4.50-5.90); RED CELL DISTRIBUTION WIDTH 14.7 % (11.6-17.2); REVIEW FLAG FINAL; WHITE BLOOD COUNT 10.7 TH/MM3 (4.0-11.0)
[2016-05-01] MEDS: ENOXAPARIN SODIUM 30 MG/0.3 ML SYRINGE SQ SCH (14:30)
--- NOTE | 2016-05-01 15:40 | HHI.PR ---
Subjective Subjective Notes Up to chair Gives thumbs up Brother at bedside Objective Vitals/I&O Vital Signs Date Time Temp Pulse Resp B/P Pulse Ox O2 Delivery O2 Flow Rate FiO2 05/01/16 12:00 99.5 110 16 117/58 98 Labs Laboratory Tests Test 05/01/16 05/01/16 05:20 13:33 Prothrombin Time 14.6 Prothromb Time International 1.3 Ratio Sodium Level 134 Potassium Level 3.9 Chloride Level 100 Carbon Dioxide Level 24.5 Anion Gap 10 Blood Urea Nitrogen 9 Creatinine 0.35 Estimat Glomerular Filtration 284 Rate Random Glucose 94 Calcium Level 7.8 Phosphorus Level 2.0 Magnesium Level 1.4 Total Bilirubin 0.2 Aspartate Amino Transf 21 (AST/SGOT) Alanine Aminotransferase 14 (ALT/SGPT) Alkaline Phosphatase 121 Total Protein 5.3 Albumin 1.4 Triglycerides Level 105 White Blood Count 10.7 Red Blood Count 2.99 Hemoglobin 8.7 Hematocrit 26.4 Mean Corpuscular Volume 88.5 Mean Corpuscular Hemoglobin 29.3 Mean Corpuscular Hemoglobin 33.1 Concent Red Cell Distribution Width 14.7 Platelet Count 323 Mean Platelet Volume 6.6 Date/Time Procedure Status Source Growth 04/30/16 20:23 Aerobic Blood Culture - Preliminary Resulted Blood Peripheral NO GROWTH IN 1 DAY 04/30/16 20:23 Anaerobic Blood Culture - Preliminary Resulted Blood Peripheral NO GROWTH IN 1 DAY Cardiovascular: Regular Lungs: Clear Abdomen: Other (PEG in place ) Narrative Exam Face: large RIGHT sided facial malignancy A/P Assessment and Plan 35 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 Ms Stapleton is documenting our encounter on my behalf and entered orders under my direct supervision. I discussed our recommendations with the patient and family at the bedside. I also discussed our encounter with the nursing staff present. HAYDEN WOODS MD [facility] Brittnee Stapleton May 01, 2016 15:40 Hayden Woods MD May 05, 2016 10:40
--- NOTE | 2016-05-01 16:18 | HHI.PR ---
Subjective Remarks Dr. Ospina translated at the bedside. Patient stated he feels tired after chemo but otherwise he has no complaints. He denied any pain or N/V. He is asking if he can eat. His nurse is also at the beside. patient's brother is at the bedside. Objective Vitals Vital Signs Date Time Temp Pulse Resp B/P Pulse Ox O2 Delivery O2 Flow Rate FiO2 05/01/16 12:00 99.5 110 16 117/58 98 05/01/16 08:00 98.2 108 20 107/60 99 05/01/16 04:00 99.8 111 18 106/56 97 05/01/16 00:00 99.4 114 18 105/56 98 04/30/16 20:00 98.8 118 17 92/59 98 I/O 04/30/16 04/30/16 04/30/16 05/01/16 05/01/16 05/01/16 07:00 15:00 23:00 07:00 15:00 23:00 Intake Total 686 ml 880 ml 1464 ml 2075 ml 0 ml Output Total 300 ml 310.0 ml Balance 686 ml 880 ml 1464 ml 1775 ml -310.0 ml Intake Oral 0 ml IV Total 686 ml 1024 ml 1095 ml Tube Feeding 480 ml 240 ml 460 ml Other 400 ml 200 ml 520 ml Output Urine Total 300 ml Tube Feeding Residual Discard 310.0 ml # Voids 1 3 2 1 1 # Bowel Movements 2 Result Diagram: 05/01/16 1333 05/01/16 0520 Objective Remarks Gen NAD HEENT: large ulcerating lesion on right side of face. mouth is partial shut. CV RRR. no r/m/g Resp CTA B/L Abd soft NDNT Procedures central line placement PEG placement bone biopsy teeth extraction Medications and IVs Current Medications Sodium Chloride (NS 1000 ml Inj) 1,000 ml @ 75 mls/hr [id number] IV Last administered on 04/02/16 02:38; Start 04/02/16 at 01:45; Stop 04/02/16 at 08:25 ; Status DC Morphine Sulfate (Morphine Inj) 2 mg Q2H PRN IV BREAKTHROUGH PAIN Last administered on 04/02/16 02:38; Start 04/02/16 at 01:45; Stop 04/08/16 at 09:45 ; Status DC Ondansetron HCl 4 mg 4 mg Q6H PRN IV PUSH NAUSEA Last administered on 02:38; Start 04/02/16 at 01:45 Sodium Chloride 500 ml @ 0 mls/hr BOLUS ONCE IV Last administered on 04:00; Start 04/02/16 at 04:00; Stop 04/02/16 at 04:01; Status DC Potassium Chloride/Dextrose/ Sod Cl (D5-NS + KCl 20 Meq Inj) 1,000 ml @ 125 mls /hr Q8H IV Last administered on 04/03/16 11:51; Start 04/02/16 at 09:00; Stop 04/04/16 at 08:51; Status DC IV Flush (NS Flush) 2 ml UNSCH PRN IVF FLUSH AFTER USING IV ACCESS Last administered on 04/17/16 05:08; Start 04/02/16 at 08:15 IV Flush (NS Flush) 2 ml BID IVF Last administered on 04/30/16 22:28; Start at 09:00 Acetaminophen (Tylenol) 650 mg Q4H PRN PO PAIN SCALE 1 TO 10; Start 04/02/16 at 09:00; Stop 04/02/16 at 09:00; Status DC Ibuprofen (Motrin) 600 mg Q4H PRN PO PAIN SCALE 1 TO 5; Start 04/02/16 at 08:15 ; Stop 04/02/16 at 08:49; Status DC Hydromorphone HCl (Dilaudid Pf Inj) 0.5 mg Q2H PRN IV PAIN SCALE 6 TO 10; Start 04/02/16 at 08:15; Stop 04/02/16 at 08:49; Status DC Diphenhydramine HCl (Benadryl) 25 mg Q6H PRN PO ITCHING Last administered on 04:30; Start 04/02/16 at 09:00 Miscellaneous Information (Post-op Orders (for Pharmacy)) STAT ONCE XX ; Start 04/02/16 at 08:15; Stop 04/03/16 at 06:06; Status DC Miscellaneous Information 1 ONCE ONCE XX ; Start 04/02/16 at 08:15; Stop at 06:06; Status DC Enoxaparin Sodium (Lovenox Inj) 30 mg Q24H SQ Last administered on 05/01/16 14 :30; Start 04/04/16 at 15:30 Naloxone HCl (Narcan Inj) 0.4 mg UNSCH PRN IV RESPIRATORY RATE LESS THAN 10; Start 04/02/16 at 08:15; Stop 04/02/16 at 08:49; Status DC Diphenhydramine HCl (Benadryl Inj) 25 mg Q6H PRN IV ITCHING; Start 04/02/16 at 09:00; Stop 04/02/16 at 09:00; Status DC [employer] Dosage Infused (Pha) 1 Q8HR .XX ; Start 04/02/16 at 09:00; Stop 04/02/16 at 09:00; Status DC Acetaminophen/ Hydrocodone Bitart (Hycet 325-7.5 Mg Liq) 15 ml Q4H PRN PO Last administered on 04/08/16 10:31; Start 04/02/16 at 09:00; Stop 04/08/16 at 14 :40; Status DC Ibuprofen (Motrin Liq) 600 mg Q4H PRN PO PAIN SCALE 1-5; Start 04/02/16 at 09: 00; Stop 04/02/16 at 09:02; Status DC Ibuprofen 600 mg 600 mg Q4H PRN PO PAIN SCALE 1-5; Start 04/02/16 at 09:02; Stop 04/14/16 at 08:27; Status DC Sodium Chloride (NS 500 ml Inj) 500 ml @ 30 mls/hr [id number] IV ; Start 04/03/16 at 03:15; Stop 04/04/16 at 03:14; Status DC Bupivacaine HCl/ Epinephrine Bitart (Sensorcaine-Epinephrine Pf 0.25% Inj) 20 ml STK-MED ONCE .ROUTE ; Start 04/03/16 at 13:46; Stop 04/03/16 at 13:47; Status DC Chlorhexidine Gluconate (Peridex 0.12% Liq) 60 ml STK-MED ONCE .ROUTE ; Start at 13:46; Stop 04/03/16 at 13:47; Status DC Heparin Sodium (Porcine) (Heparin Inj) 10,000 units STK-MED ONCE .ROUTE ; Start 04/03/16 at 13:46; Stop 04/03/16 at 13:47; Status DC Heparin Sodium (Porcine) (Heparin Inj) 10,000 units STK-MED ONCE .ROUTE ; Start 04/03/16 at 13:46; Stop 04/03/16 at 13:47; Status DC Cefazolin Sodium (Ancef Inj) 1,000 mg STK-MED ONCE IV Last administered on 04/03 14:43; Start 04/03/16 at 14:43; Stop 04/03/16 at 15:03; Status DC Lidocaine/ Epinephrine (Xylocaine-Epi 1%-1:100,000 Inj) 50 ml STK-MED ONCE .ROUTE ; Start 04/03/16 at 15:35; Stop 04/03/16 at 15:36; Status DC Lidocaine/ Epinephrine (Xylocaine-Epi 2%-1:100,000 Inj) 30 ml STK-MED ONCE .ROUTE Last administered on 04/03/16 16:01; Start 04/03/16 at 15:35; Stop at 15:36; Status DC Microfibriller Collagen Hemostat (Avitene Powder Pack) 1 gm STK-MED ONCE .ROUTE ; Start 04/03/16 at 15:41; Stop 04/03/16 at 15:42; Status DC Fentanyl Citrate 250 mcg 250 mcg STK-MED ONCE .ROUTE ; Start 04/03/16 at 16:34; Stop 04/03/16 at 16:35; Status DC Sodium Chloride 11 meq/Sodium Acetate 59 meq/ Potassium Chloride 40 meq/ Magnesium Chloride 10 meq/ Multivitamins 10 ml/Folic Acid 1 mg/Amino Acids/ Dextrose 2,067.5261 ml @ 83 mls/hr Q24H IV-CENTRAL Last administered on 22:27; Start 04/03/16 at 20:00; Stop 04/08/16 at 09:30; Status DC Fat Emulsion Intravenous (Liposyn Iii 20% Inj) 250 ml @ 10 mls/hr Q24H IV- CENTRAL Last administered on 04/06/16 22:26; Start 04/03/16 at 20:00; Stop 04/08 at 09:31; Status DC Morphine Sulfate (*morphine INJ PERIprocedure ONLY) 8 mg STK-MED ONCE .ROUTE Last administered on 04/03/16 17:22; Start 04/03/16 at 17:22; Stop 04/03/16 at 17:23; Status DC Miscellaneous Information ALL NURSING DEPARTME... UNSCH PRN XX SEE LABEL COMMENTS; Start 04/03/16 at 16:28; Stop 04/04/16 at 16:27; Status DC Potassium Chloride 100 ml @ 50 mls/hr Q2H IV Last administered on 04/04/16 01 :52; Start 04/03/16 at 21:45; Stop 04/04/16 at 01:44; Status DC Magnesium Sulfate/ Dextrose (Magnesium Sulfate 1 Gm Premix) 100 ml @ 100 mls/ hr Q1H IV Last administered on 04/04/16 00:16; Start 04/03/16 at 21:45; Stop 04/03/16 at 23:44; Status DC Water (Free Water) VOLUME: 200 ML Q6HR G-TUBE Last administered on 05/01/16 11 :45; Start 04/04/16 at 08:45 Potassium Chloride (KCl 40 Meq/30 ml Liq) 40 meq ONCE ONCE PEG Last administered on 04/04/16 10:45; Start 04/04/16 at 10:45; Stop 04/04/16 at 10:50 ; Status DC Propofol (Diprivan 200 Mg/20 ml Inj) 200 mg STK-MED ONCE IV ; Start 04/03/16 at 10:46; Stop 04/04/16 at 10:46; Status DC Phenylephrine HCl (Neosynephrine/ NS 1000 Mcg/10ml Syr) 1,000 mcg STK-MED ONCE IV ; Start 04/03/16 at 10:46; Stop 04/04/16 at 10:46; Status DC Ondansetron HCl 4 mg 4 mg STK-MED ONCE IV PUSH ; Start 04/03/16 at 10:46; Stop 04/04/16 at 10:46; Status DC Lactated Ringer's 1,000 ml @ As Directed STK-MED ONCE IV ; Start 04/03/16 at 10 :46; Stop 04/04/16 at 10:46; Status DC Pamidronate Disodium/Sodium Chloride (Aredia Inj/NS 1000 ml Inj) 1,000 ml @ 42 mls/hr ONCE ONCE IV Last administered on 04/04/16 23:37; Start 04/04/16 at 22 :00; Stop 04/05/16 at 21:48; Status DC Potassium Chloride 40 meq 40 meq ONCE ONCE PEG Last administered on 04/05/16 15:12; Start 04/05/16 at 12:00; Stop 04/05/16 at 12:01; Status DC Levofloxacin/ Dextrose 100 ml @ 100 mls/hr Q24H IV Last administered on 22:27; Start 04/06/16 at 18:00; Stop 04/07/16 at 09:06; Status DC Sodium Chloride (NS 1000 ml Inj) 1,000 ml @ 0 mls/hr BOLUS ONCE IV Last administered on 04/07/16 01:00; Start 04/07/16 at 01:00; Stop 04/07/16 at 01:01; Status DC Acetaminophen (Tylenol) 650 mg Q4H PRN PO FEVER OVER 101.0 Last administered on 04/26/16 12:22; Start 04/07/16 at 01:45 Metoprolol Tartrate 25 mg 25 mg ONCE ONCE PO Last administered on 04/07/16 03: 16; Start 04/07/16 at 03:15; Stop 04/07/16 at 03:16; Status DC Potassium Chloride/Dextrose/ Sod Cl (D5-NS + KCl 20 Meq Inj) 1,000 ml @ 42 mls/ hr [id number] IV Last administered on 04/15/16 06:17; Start 04/07/16 at 07:45; Stop 04/16/16 at 09:02; Status DC Potassium Chloride 40 meq 40 meq ONCE ONCE PO Last administered on 04/07/16 08 :15; Start 04/07/16 at 08:15; Stop 04/07/16 at 08:18; Status DC Cefepime HCl 2000 mg/Sodium Chloride 100 ml @ 200 mls/hr Q12H IV Last administered on 04/07/16 09:00; Start 04/07/16 at 09:00; Stop 04/07/16 at 09:07; Status DC Piperacillin Sod/ Tazobactam Sod 50 ml @ 100 mls/hr Q6H IV Last administered on 04/20/16 05:04; Start 04/07/16 at 11:00; Stop 04/20/16 at 10:59; Status DC Magnesium Sulfate/ Dextrose (Magnesium Sulfate 1 Gm Premix) 100 ml @ 100 mls/ hr ONCE ONCE IV Last administered on 04/07/16 15:30; Start 04/07/16 at 13:15; Stop 04/07/16 at 14:14; Status DC Potassium Chloride (KCl 40 Meq/30 ml Liq) 40 meq ONCE ONCE PEG Last administered on 04/07/16 15:30; Start 04/07/16 at 13:15; Stop 04/07/16 at 13:16; Status DC Lidocaine HCl (Xylocaine 1% Inj (50 ml)) 50 ml STK-MED ONCE .ROUTE ; Start at 15:46; Stop 04/07/16 at 15:47; Status DC Metoprolol Tartrate (Lopressor) 25 mg ONCE ONCE PO ; Start 04/08/16 at 00:15; Stop 04/08/16 at 00:16; Status DC Morphine Sulfate (Morphine Inj) 2 mg Q4HR IV ; Start 04/08/16 at 12:00; Stop 12/19 at 08:27; Status DC Morphine Sulfate 2 mg 2 mg Q2HR PRN IV PUSH PAIN SCALE 9 TO 10; Start 04/08/16 at 09:00 Potassium Chloride (KCl 20 Meq Premix Inj) 100 ml @ 50 mls/hr Q2H IV Last administered on 04/08/16 18:59; Start 04/08/16 at 12:00; Stop 04/08/16 at 15:59; Status DC Potassium Chloride (KCl 40 Meq/30 ml Liq) 40 meq Q12HR NG Last administered on 05/01/16 08:37; Start 04/08/16 at 12:00 Acetaminophen/ Hydrocodone Bitart 15 ml 15 ml Q3HR PRN PO pain1-9 Last administered on 05/01/16 10:41; Start 04/08/16 at 14:45 Potassium Chloride (KCl 20 Meq Premix Inj) 100 ml @ As Directed STK-MED ONCE .ROUTE ; Start 04/08/16 at 18:57; Stop 04/08/16 at 18:58; Status DC Magnesium Oxide (Mag-Ox) 400 mg Q12HR PEG Last administered on 04/12/16 22:14; Start 04/10/16 at 14:45; Stop 04/12/16 at 21:00; Status DC Potassium Chloride 40 meq 40 meq ONCE ONCE PEG ; Start 04/11/16 at 09:00; Stop 04/11/16 at 09:35; Status DC Magnesium Sulfate/ Dextrose (Magnesium Sulfate 1 Gm Premix) 100 ml @ 100 mls/ hr ONCE ONCE IV Last administered on 04/11/16 10:03; Start 04/11/16 at 09:00; Stop 04/11/16 at 09:59; Status DC Iohexol 95 ml 95 ml STK-MED ONCE IV Last administered on 04/11/16 14:39; Start 04/11/16 at 14:39; Stop 04/11/16 at 14:40; Status DC Sodium Chloride (NS 250 ml Inj) 250 ml @ 0 mls/hr ONCE@1800 ONCE IV ; Start 04/13/16 at 18:00; Stop 04/13/16 at 18:01; Status DC Granisetron HCl (Kytril Inj) 1 mg ONCE@1700 ONCE IV PUSH Last administered on 04/13/16 18:10; Start 04/13/16 at 17:00; Stop 04/13/16 at 17:01; Status DC Famotidine 20 mg 20 mg ONCE@1700 ONCE IV PUSH Last administered on 04/13/16 18 :09; Start 04/13/16 at 17:00; Stop 04/13/16 at 17:01; Status DC Dexamethasone Sodium Phosphate/ Sodium Chloride (Decadron Inj/NS Inj) 52.5 ml @ 210 mls/hr ONCE@1700 ONCE IV Last administered on 04/13/16 17:23; Start 04/13 at 17:00; Stop 04/13/16 at 17:14; Status DC Diphenhydramine HCl 25 mg 25 mg ONCE@1700 ONCE PO Last administered on 17:23; Start 04/13/16 at 17:00; Stop 04/13/16 at 17:01; Status DC Paclitaxel 69.75 mg/Sodium Chloride 261.625 ml @ 130.813 mls/hr ONCE@1800 ONCE IV Last administered on 04/13/16 19:37; Start 04/13/16 at 18:00; Stop at 19:59; Status DC Carboplatin/ Sodium Chloride (Paraplatin Inj/ NS 250 ml Inj) 250 ml @ 500 mls/ hr ONCE@21 ONCE IV Last administered on 04/13/16 21:59; Start 04/13/16 at 21:00 ; Stop 04/13/16 at 21:29; Status DC Hyoscyamine Sulfate (Levsin Inj) 0.25 mg ONCE ONCE IVP Last administered on 19:45; Start 04/14/16 at 19:45; Stop 04/14/16 at 19:46; Status DC Magnesium Oxide 400 mg 400 mg Q12HR GT Last administered on 04/17/16 08:57; Start 04/15/16 at 09:00; Stop 04/17/16 at 13:59; Status DC Magnesium Sulfate/ Dextrose (Magnesium Sulfate 1 Gm Premix) 100 ml @ 100 mls/ hr ONCE ONCE IV Last administered on 04/15/16 09:25; Start 04/15/16 at 09:00 ; Stop 04/15/16 at 09:59; Status DC Docusate Sodium (Colace Liq) 100 mg BID PRN GT CONSTIPATION; Start 04/15/16 at 12:15 Senna/Docusate Sodium (Clara-Colace) 2 tab BID G-TUBE Last administered on 08:19; Start 04/15/16 at 21:00 Lactulose (Lactulose Liq) 30 ml TID PRN G-TUBE CONSTIPATION; Start 04/15/16 at 12:15 Bisacodyl (Dulcolax Supp) 10 mg DAILY PRN IA CONSTIPATION; Start 04/15/16 at 12 :15 Magnesium Hydroxide 30 ml 30 ml Q6H PRN GT CONSTIPATION; Start 04/15/16 at 12: 15 Magnesium Sulfate/ Dextrose (Magnesium Sulfate 1 Gm Premix) 100 ml @ 100 mls/ hr ONCE ONCE IV Last administered on 04/15/16 13:00; Start 04/15/16 at 13:00 ; Stop 04/15/16 at 13:59; Status DC Potassium Chloride (KCl 40 Meq/30 ml Liq) 40 meq ONCE ONCE G-TUBE Last administered on 04/16/16 09:00; Start 04/16/16 at 09:00; Stop 04/16/16 at 09:02 ; Status DC Metoclopramide HCl 5 mg 5 mg ACHS G-TUBE Last administered on 04/19/16 11:30; Start 04/16/16 at 11:00; Stop 04/19/16 at 13:58; Status DC Magnesium Sulfate/ Dextrose (Magnesium Sulfate 1 Gm Premix) 100 ml @ 100 mls/ hr ONCE ONCE IV Last administered on 04/16/16 16:56; Start 04/16/16 at 14:45 ; Stop 04/16/16 at 15:44; Status DC Padimate O (Chapstick) 1 applic UNSCH PRN TOP DISCOMFORT Last administered on 00:01; Start 04/17/16 at 10:00 Magnesium Oxide 800 mg 800 mg Q12HR GT Last administered on 05/01/16 08:37; Start 04/17/16 at 21:00 Magnesium Sulfate/ Dextrose (Magnesium Sulfate 1 Gm Premix) 100 ml @ 100 mls/ hr Q1H IV Last administered on 04/17/16 18:34; Start 04/17/16 at 14:00; Stop 04/17/16 at 15:59; Status DC Potassium Chloride 20 meq 20 meq ONCE ONCE GT Last administered on 04/17/16 14:47; Start 04/17/16 at 14:00; Stop 04/17/16 at 14:04; Status DC Magnesium Sulfate/ Dextrose (Magnesium Sulfate 1 Gm Premix) 100 ml @ 100 mls/ hr Q1H IV ; Start 04/17/16 at 18:30; Stop 04/17/16 at 19:29; Status DC Potassium Chloride (KCl 40 Meq/30 ml Liq) 40 meq ONCE ONCE PO Last administered on 04/18/16 09:09; Start 04/18/16 at 08:00; Stop 04/18/16 at 08:01 ; Status DC Metoclopramide HCl 10 mg 10 mg ACHS G-TUBE Last administered on 05/01/16 10:39 ; Start 04/19/16 at 16:00 Metronidazole (Flagyl 500 Mg Inj) 100 ml @ 100 mls/hr Q6H IV Last administered on 05/01/16 14:30; Start 04/20/16 at 14:00; Stop 05/01/16 at 15:39 ; Status DC Potassium Chloride (KCl) 30 meq ONCE ONCE PO ; Start 04/20/16 at 13:45; Stop at 13:47; Status DC Granisetron HCl (Kytril Inj) 1 mg ONCE@1700 ONCE IV PUSH Last administered on 04/21/16 14:20; Start 04/21/16 at 12:00; Stop 04/21/16 at 12:01; Status DC Famotidine 20 mg 20 mg ONCE ONCE IV PUSH Last administered on 04/21/16 14:20 ; Start 04/21/16 at 12:00; Stop 04/21/16 at 12:01; Status DC Sodium Chloride 250 ml @ 0 mls/hr ONCE ONCE IV Last administered on 04/21/16 14:30; Start 04/21/16 at 12:00; Stop 04/21/16 at 12:01; Status DC Dexamethasone Sodium Phosphate/ Sodium Chloride (Decadron Inj/NS Inj) 52.5 ml @ 210 mls/hr ONCE ONCE IV Last administered on 04/21/16 14:20; Start at 12:00; Stop 04/21/16 at 12:14; Status DC Diphenhydramine HCl 25 mg 25 mg ONCE ONCE PO ; Start 04/21/16 at 12:00; Stop at 12:01; Status DC Paclitaxel 67.05 mg/Sodium Chloride 261.175 ml @ 261.625 mls/hr ONCE ONCE IV Last administered on 04/21/16 14:47; Start 04/21/16 at 13:00; Stop 04/21/16 at 13:59; Status DC Carboplatin/ Sodium Chloride (Paraplatin Inj/ NS 250 ml Inj) 250 ml @ 500 mls/ hr ONCE ONCE IV Last administered on 04/21/16 16:12; Start 04/21/16 at 14:00 ; Stop 04/21/16 at 14:29; Status DC Diphenhydramine HCl (Benadryl Liq) 25 mg ONCE ONCE PEG Last administered on 14:20; Start 04/21/16 at 15:00; Stop 04/21/16 at 15:01; Status DC Polyethylene Glycol 17 gm 17 gm DAILY G-TUBE Last administered on 04/27/16 10: 05; Start 04/22/16 at 09:00 Cefepime HCl 2000 mg/Sodium Chloride 100 ml @ 200 mls/hr Q12H IV Last administered on 05/01/16 10:39; Start 04/23/16 at 09:00; Stop 05/01/16 at 15:40 ; Status DC Sodium Chloride 1,000 ml @ 84 mls/hr [id number] IV Last administered on 20:24; Start 04/23/16 at 10:00; Stop 05/01/16 at 15:40; Status DC Potassium Phosphate/Sodium Chloride (Potassium Phosphate Inj/NS Inj) 155 ml @ 38.75 mls/ hr ONCE ONCE IV Last administered on 04/24/16 16:28; Start at 12:00; Stop 04/24/16 at 15:59; Status DC Potassium Phosphate (K-Phos) 500 mg Q12HR PO Last administered on 05/01/16 08: 36; Start 04/24/16 at 12:00 Lactobacillus Acidophilus 1 tab 1 tab TID PO Last administered on 05/01/16 11: 45; Start 04/24/16 at 18:00 Sodium Chloride (NS 250 ml Inj) 250 ml @ 15 mls/hr ONCE ONCE IV Last administered on 04/26/16 19:55; Start 04/26/16 at 13:00; Stop 04/27/16 at 05:39 ; Status DC Acetaminophen (Tylenol) 650 mg Q4H PRN PO SEE LABEL COMMENTS; Start 04/26/16 at 13:00; Stop 04/26/16 at 17:01; Status DC Diphenhydramine HCl (Benadryl) 25 mg Q4H PRN PO SEE LABEL COMMENTS; Start 04/26 at 13:00; Stop 04/26/16 at 17:01; Status DC Acetaminophen (Tylenol) 650 mg Q4H PRN PO SEE LABEL COMMENTS Last administered on 04/26/16 23:38; Start 04/26/16 at 18:45; Stop 04/27/16 at 08:00; Status DC Diphenhydramine HCl (Benadryl) 25 mg Q4H PRN PO SEE LABEL COMMENTS Last administered on 04/26/16 23:37; Start 04/26/16 at 18:45; Stop 04/27/16 at 08:00 ; Status DC Diphenhydramine HCl (Benadryl Inj) 50 mg STK-MED ONCE .ROUTE ; Start 04/26/16 at 18:39; Stop 04/26/16 at 18:40; Status DC Diphenhydramine HCl 25 mg 25 mg Q4H PRN IV PRIOR/DURING BLOOD TRANSFUSION; Start 04/26/16 at 19:00 Magnesium Sulfate/ Dextrose 100 ml @ 100 mls/hr ONCE ONCE IV Last administered on 04/27/16 12:46; Start 04/27/16 at 12:00; Stop 04/27/16 at 12:59 ; Status DC Paclitaxel 67.05 mg/Sodium Chloride 261.175 ml @ 261.175 mls/hr ONCE ONCE IV Last administered on 04/28/16 21:43; Start 04/28/16 at 17:00; Stop 04/28/16 at 17:59; Status DC Carboplatin/ Sodium Chloride (Paraplatin Inj/ NS 250 ml Inj) 250 ml @ 500 mls/ hr ONCE ONCE IV Last administered on 04/29/16 00:00; Start 04/28/16 at 18:00 ; Stop 04/28/16 at 18:29; Status DC Granisetron HCl (Kytril Inj) 1 mg ONCE@1600 ONCE IV Last administered on 19:58; Start 04/28/16 at 16:00; Stop 04/28/16 at 16:01; Status DC Famotidine 20 mg 20 mg ONCE@1600 ONCE IV Last administered on 04/28/16 20:13 ; Start 04/28/16 at 16:00; Stop 04/28/16 at 16:01; Status DC Dexamethasone Sodium Phosphate/ Sodium Chloride (Decadron Inj/NS Inj) 52.5 ml @ 210 mls/hr ONCE@1600 ONCE IV Last administered on 04/28/16 19:58; Start at 16:00; Stop 04/28/16 at 16:14; Status DC Diphenhydramine HCl 25 mg 25 mg ONCE@1600 ONCE PO Last administered on 20:18; Start 04/28/16 at 16:00; Stop 04/28/16 at 16:01; Status DC Sodium Chloride (NS 250 ml Inj) 250 ml @ 0 mls/hr ONCE IV Last administered on 04/28/16 21:43; Start 04/28/16 at 14:00; Stop 04/28/16 at 23:00; Status DC Fluconazole (Diflucan) 200 mg DAILY PO ; Start 05/01/16 at 15:45 Levofloxacin (Levaquin Liq) 500 mg DAILY TUBE ; Start 05/02/16 at 09:00 Metronidazole (Flagyl) 500 mg Q8HR PO ; Start 05/01/16 at 22:00 A/P Assessment and Plan squamous cell carcinoma of the oropharynx -CT of the face with very large heterogeneous soft tissue mass along the right side of the face with gross destruction involving most of the right mandible. The mass contains amorphous calcifications and appears to involve the right sternocleidomastoid muscle. The mass appears to extend into the oral cavity with diffuse enlargement of the right tonsillar pillar. CT of the chest and abdomen with possible lung/ liver mets. 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 continue with pain control. general and facial surgery following for debulking next week. -d/w nurse in regards to oral hygiene. -sepsis with possible right facial wound and central line as the source-central line discontinued- one bottle of blood cultures with pseudomonas stutzeri - s/p IV Zosyn total 2 weeks end date April 20- repeated blood cultures 04/09 , 04/19, 04/21 and . Negative CXR. Negative UA. Recurrent fever from infected tumor. Continue Empiric Flagyl April 20 and cefepime April 23. Follow up cultures negative to date. Leukocytosis. will monitor Sinus tachycardia. secondary to sepsis and fever as well as anemia. TSH within normal limits Could also be from anxiety -acute kidney injury/ hyponatremia due to dehydration-- improved - will monitor -hypercalcemia- received a dose of aredia-resolved- will continue to monitor. -anemia due to chemo- s/p PRBC transfusion- will monitor H/H- transfuse to keep Hb > 8 -hypokalemia/hypomagnesemia/hypophosphatemia;replaced. -severe malnutrition- s/p PEG placement-started on tube feeding - publicity agent consulted. Patient with intolerance likely contributed by constipation. Continue Reglan and monitor response. previously discussed with RN not to hold tube feeding unless residual over 400 mL. Switch bolus tube feeding which he is tolerating. -Constipation. Monitor hemorrhoidal bleeding -DVT prophylaxis with lovenox and consider discontinuation if worsening rectal bleeding -DNR status palliative care following. d./w patient, nurse, and brother. Dispo: most likely long hospital stay due to severity of cancer. continue with chemo and possible debuking next week. Magui Marcus MD May 01, 2016 16:18
[2016-05-01] MEDS: FLUCONAZOLE 200 MG TAB PO SCH (16:44)
[2016-05-01 17:35] VITALS: BP 98/58; PULSE 114; RESP 20; TEMP 100.4; O2SAT 98
[2016-05-01] MEDS: ACETAMINOPHEN 325 MG TAB PO PRN (17:44)
[2016-05-01] MEDS: NYSTAT/DIPHENHY/LIDO MOUTHWASH (Adult) 120ML SWISH-SWAL SCH ×2 (17:52→21:00)
[2016-05-01 20:00] VITALS: BP 92/55; PULSE 107; RESP 18; TEMP 97.7; O2SAT 99
[2016-05-01] MEDS: metroNIDAZOLE 500 MG TAB PO SCH (23:02)
[2016-05-02] VITALS (7 sets, daily range): BP systolic 91–128; BP diastolic 54–86; PULSE 98–116; RESP 17–22; TEMP 96.5–100.4; O2SAT 97–99
[2016-05-02] MEDS: FREE WATER G-TUBE SCH ×3 (06:00→17:35)
[2016-05-02] MEDS: metroNIDAZOLE 500 MG TAB PO SCH ×3 (06:19→21:45)
[2016-05-02] MEDS: METOCLOPRAMIDE HCL SYRUP 10 MG/10 ML UDC G-TUBE SCH ×4 (06:19→21:44)
[2016-05-02] MEDS: DOCUSATE SODIUM 50 MG/SENNA 8.6 MG TAB G-TUBE SCH ×2 (08:08→21:00)
[2016-05-02] MEDS: POLYETHYLENE GLYCOL 17 GM PKG G-TUBE SCH (08:08)
[2016-05-02] MEDS: SODIUM CHLORIDE 0.9% FLUSH 5 ML FLUSH IVF SCH ×2 (08:27→22:01)
[2016-05-02] MEDS: POTASSIUM CL 40 MEQ/30 ML LIQ UDC NG SCH ×2 (08:28→21:44)
[2016-05-02] MEDS: ACETAMINOPHEN 325MG/HYDROcodone 7.5MG/15ML UDC PO PRN ×2 (08:28→21:44)
[2016-05-02] MEDS: LEVOFLOXACIN ORAL SOLN 2500 MG/100 ML BOTTLE TUBE SCH (08:28)
[2016-05-02] MEDS: MAGNESIUM OXIDE 400 MG TAB GT SCH ×2 (08:29→21:44)
[2016-05-02] MEDS: POTASSIUM PHOSPHATE MONOBASIC 500 MG TAB PO SCH ×2 (08:51→21:45)
[2016-05-02] MEDS: FLUCONAZOLE 200 MG TAB PO SCH (08:51)
[2016-05-02] MEDS: NYSTAT/DIPHENHY/LIDO MOUTHWASH (Adult) 120ML SWISH-SWAL SCH ×4 (08:52→21:45)
[2016-05-02] MEDS: LACTOBACILLUS ACIDOPHILUS TAB PO SCH ×3 (08:52→17:51)
--- NOTE | 2016-05-02 09:33 | HHI.PR ---
Subjective Remarks f/u for [facility] nurse Fransisco at the bedside. She stated she could not find a translation computer so is using google translation. Google curtain roller assembler use. Patient c/o pain at mass site but just got pain medication. Denied any SOB. He tolerated the magic mouthwash. Objective Vitals Vital Signs Date Time Temp Pulse Resp B/P Pulse Ox O2 Delivery O2 Flow Rate FiO2 05/02/16 08:00 98.7 114 22 91/54 98 05/02/16 04:00 97.9 98 17 95/55 99 05/02/16 00:00 97.7 100 17 99/56 98 05/01/16 20:00 97.7 107 18 92/55 99 05/01/16 17:35 100.4 114 20 98/58 98 05/01/16 12:00 99.5 110 16 117/58 98 I/O 05/01/16 05/01/16 05/01/16 05/02/16 05/02/16 05/02/16 07:00 15:00 23:00 07:00 15:00 23:00 Intake Total 2075 ml 0 ml Output Total 300 ml 310.0 ml 150.0 ml Balance 1775 ml -310.0 ml -150.0 ml Intake Oral 0 ml IV Total 1095 ml Tube Feeding 460 ml Other 520 ml Output Urine Total 300 ml Tube Feeding Residual Discard 310.0 ml 150.0 ml # Voids 1 1 # Bowel Movements 2 Result Diagram: 05/01/16 1333 05/01/16 0520 Objective Remarks Gen NAD HEENT: large ulcerating lesion on right side of face. mouth is partial shut. CV RRR. no r/m/g Resp CTA B/L Abd soft NDNT Procedures central line placement PEG placement bone biopsy teeth extraction Medications and IVs Current Medications Sodium Chloride (NS 1000 ml Inj) 1,000 ml @ 75 mls/hr [id number] IV Last administered on 04/02/16 02:38; Start 04/02/16 at 01:45; Stop 04/02/16 at 08:25 ; Status DC Morphine Sulfate (Morphine Inj) 2 mg Q2H PRN IV BREAKTHROUGH PAIN Last administered on 04/02/16 02:38; Start 04/02/16 at 01:45; Stop 04/08/16 at 09:45 ; Status DC Ondansetron HCl 4 mg 4 mg Q6H PRN IV PUSH NAUSEA Last administered on 02:38; Start 04/02/16 at 01:45 Sodium Chloride 500 ml @ 0 mls/hr BOLUS ONCE IV Last administered on 04:00; Start 04/02/16 at 04:00; Stop 04/02/16 at 04:01; Status DC Potassium Chloride/Dextrose/ Sod Cl (D5-NS + KCl 20 Meq Inj) 1,000 ml @ 125 mls /hr Q8H IV Last administered on 04/03/16 11:51; Start 04/02/16 at 09:00; Stop 04/04/16 at 08:51; Status DC IV Flush (NS Flush) 2 ml UNSCH PRN IVF FLUSH AFTER USING IV ACCESS Last administered on 04/17/16 05:08; Start 04/02/16 at 08:15 IV Flush (NS Flush) 2 ml BID IVF Last administered on 05/02/16 08:27; Start at 09:00 Acetaminophen (Tylenol) 650 mg Q4H PRN PO PAIN SCALE 1 TO 10; Start 04/02/16 at 09:00; Stop 04/02/16 at 09:00; Status DC Ibuprofen (Motrin) 600 mg Q4H PRN PO PAIN SCALE 1 TO 5; Start 04/02/16 at 08:15 ; Stop 04/02/16 at 08:49; Status DC Hydromorphone HCl (Dilaudid Pf Inj) 0.5 mg Q2H PRN IV PAIN SCALE 6 TO 10; Start 04/02/16 at 08:15; Stop 04/02/16 at 08:49; Status DC Diphenhydramine HCl (Benadryl) 25 mg Q6H PRN PO ITCHING Last administered on 04:30; Start 04/02/16 at 09:00 Miscellaneous Information (Post-op Orders (for Pharmacy)) STAT ONCE XX ; Start 04/02/16 at 08:15; Stop 04/03/16 at 06:06; Status DC Miscellaneous Information 1 ONCE ONCE XX ; Start 04/02/16 at 08:15; Stop at 06:06; Status DC Enoxaparin Sodium (Lovenox Inj) 30 mg Q24H SQ Last administered on 05/01/16 14 :30; Start 04/04/16 at 15:30 Naloxone HCl (Narcan Inj) 0.4 mg UNSCH PRN IV RESPIRATORY RATE LESS THAN 10; Start 04/02/16 at 08:15; Stop 04/02/16 at 08:49; Status DC Diphenhydramine HCl (Benadryl Inj) 25 mg Q6H PRN IV ITCHING; Start 04/02/16 at 09:00; Stop 04/02/16 at 09:00; Status DC ENGINE INSTALLER Dosage Infused (Pha) 1 Q8HR .XX ; Start 04/02/16 at 09:00; Stop 04/02/16 at 09:00; Status DC Acetaminophen/ Hydrocodone Bitart (Hycet 325-7.5 Mg Liq) 15 ml Q4H PRN PO Last administered on 04/08/16 10:31; Start 04/02/16 at 09:00; Stop 04/08/16 at 14 :40; Status DC Ibuprofen (Motrin Liq) 600 mg Q4H PRN PO PAIN SCALE 1-5; Start 04/02/16 at 09: 00; Stop 04/02/16 at 09:02; Status DC Ibuprofen 600 mg 600 mg Q4H PRN PO PAIN SCALE 1-5; Start 04/02/16 at 09:02; Stop 04/14/16 at 08:27; Status DC Sodium Chloride (NS 500 ml Inj) 500 ml @ 30 mls/hr [id number] IV ; Start 04/03/16 at 03:15; Stop 04/04/16 at 03:14; Status DC Bupivacaine HCl/ Epinephrine Bitart (Sensorcaine-Epinephrine Pf 0.25% Inj) 20 ml STK-MED ONCE .ROUTE ; Start 04/03/16 at 13:46; Stop 04/03/16 at 13:47; Status DC Chlorhexidine Gluconate (Peridex 0.12% Liq) 60 ml STK-MED ONCE .ROUTE ; Start at 13:46; Stop 04/03/16 at 13:47; Status DC Heparin Sodium (Porcine) (Heparin Inj) 10,000 units STK-MED ONCE .ROUTE ; Start 04/03/16 at 13:46; Stop 04/03/16 at 13:47; Status DC Heparin Sodium (Porcine) (Heparin Inj) 10,000 units STK-MED ONCE .ROUTE ; Start 04/03/16 at 13:46; Stop 04/03/16 at 13:47; Status DC Cefazolin Sodium (Ancef Inj) 1,000 mg STK-MED ONCE IV Last administered on 04/03 14:43; Start 04/03/16 at 14:43; Stop 04/03/16 at 15:03; Status DC Lidocaine/ Epinephrine (Xylocaine-Epi 1%-1:100,000 Inj) 50 ml STK-MED ONCE .ROUTE ; Start 04/03/16 at 15:35; Stop 04/03/16 at 15:36; Status DC Lidocaine/ Epinephrine (Xylocaine-Epi 2%-1:100,000 Inj) 30 ml STK-MED ONCE .ROUTE Last administered on 04/03/16 16:01; Start 04/03/16 at 15:35; Stop at 15:36; Status DC Microfibriller Collagen Hemostat (Avitene Powder Pack) 1 gm STK-MED ONCE .ROUTE ; Start 04/03/16 at 15:41; Stop 04/03/16 at 15:42; Status DC Fentanyl Citrate 250 mcg 250 mcg STK-MED ONCE .ROUTE ; Start 04/03/16 at 16:34; Stop 04/03/16 at 16:35; Status DC Sodium Chloride 11 meq/Sodium Acetate 59 meq/ Potassium Chloride 40 meq/ Magnesium Chloride 10 meq/ Multivitamins 10 ml/Folic Acid 1 mg/Amino Acids/ Dextrose 2,067.5261 ml @ 83 mls/hr Q24H IV-CENTRAL Last administered on 22:27; Start 04/03/16 at 20:00; Stop 04/08/16 at 09:30; Status DC Fat Emulsion Intravenous (Liposyn Iii 20% Inj) 250 ml @ 10 mls/hr Q24H IV- CENTRAL Last administered on 04/06/16 22:26; Start 04/03/16 at 20:00; Stop 04/08 at 09:31; Status DC Morphine Sulfate (*morphine INJ PERIprocedure ONLY) 8 mg STK-MED ONCE .ROUTE Last administered on 04/03/16 17:22; Start 04/03/16 at 17:22; Stop 04/03/16 at 17:23; Status DC Miscellaneous Information ALL NURSING DEPARTME... UNSCH PRN XX SEE LABEL COMMENTS; Start 04/03/16 at 16:28; Stop 04/04/16 at 16:27; Status DC Potassium Chloride 100 ml @ 50 mls/hr Q2H IV Last administered on 04/04/16 01 :52; Start 04/03/16 at 21:45; Stop 04/04/16 at 01:44; Status DC Magnesium Sulfate/ Dextrose (Magnesium Sulfate 1 Gm Premix) 100 ml @ 100 mls/ hr Q1H IV Last administered on 04/04/16 00:16; Start 04/03/16 at 21:45; Stop 04/03/16 at 23:44; Status DC Water (Free Water) VOLUME: 200 ML Q6HR G-TUBE Last administered on 05/02/16 06 :00; Start 04/04/16 at 08:45 Potassium Chloride (KCl 40 Meq/30 ml Liq) 40 meq ONCE ONCE PEG Last administered on 04/04/16 10:45; Start 04/04/16 at 10:45; Stop 04/04/16 at 10:50 ; Status DC Propofol (Diprivan 200 Mg/20 ml Inj) 200 mg STK-MED ONCE IV ; Start 04/03/16 at 10:46; Stop 04/04/16 at 10:46; Status DC Phenylephrine HCl (Neosynephrine/ NS 1000 Mcg/10ml Syr) 1,000 mcg STK-MED ONCE IV ; Start 04/03/16 at 10:46; Stop 04/04/16 at 10:46; Status DC Ondansetron HCl 4 mg 4 mg STK-MED ONCE IV PUSH ; Start 04/03/16 at 10:46; Stop 04/04/16 at 10:46; Status DC Lactated Ringer's 1,000 ml @ As Directed STK-MED ONCE IV ; Start 04/03/16 at 10 :46; Stop 04/04/16 at 10:46; Status DC Pamidronate Disodium/Sodium Chloride (Aredia Inj/NS 1000 ml Inj) 1,000 ml @ 42 mls/hr ONCE ONCE IV Last administered on 04/04/16 23:37; Start 04/04/16 at 22 :00; Stop 04/05/16 at 21:48; Status DC Potassium Chloride 40 meq 40 meq ONCE ONCE PEG Last administered on 04/05/16 15:12; Start 04/05/16 at 12:00; Stop 04/05/16 at 12:01; Status DC Levofloxacin/ Dextrose 100 ml @ 100 mls/hr Q24H IV Last administered on 22:27; Start 04/06/16 at 18:00; Stop 04/07/16 at 09:06; Status DC Sodium Chloride (NS 1000 ml Inj) 1,000 ml @ 0 mls/hr BOLUS ONCE IV Last administered on 04/07/16 01:00; Start 04/07/16 at 01:00; Stop 04/07/16 at 01:01; Status DC Acetaminophen (Tylenol) 650 mg Q4H PRN PO FEVER OVER 101.0 Last administered on 05/01/16 17:44; Start 04/07/16 at 01:45 Metoprolol Tartrate 25 mg 25 mg ONCE ONCE PO Last administered on 04/07/16 03: 16; Start 04/07/16 at 03:15; Stop 04/07/16 at 03:16; Status DC Potassium Chloride/Dextrose/ Sod Cl (D5-NS + KCl 20 Meq Inj) 1,000 ml @ 42 mls/ hr [id number] IV Last administered on 04/15/16 06:17; Start 04/07/16 at 07:45; Stop 04/16/16 at 09:02; Status DC Potassium Chloride 40 meq 40 meq ONCE ONCE PO Last administered on 04/07/16 08 :15; Start 04/07/16 at 08:15; Stop 04/07/16 at 08:18; Status DC Cefepime HCl 2000 mg/Sodium Chloride 100 ml @ 200 mls/hr Q12H IV Last administered on 04/07/16 09:00; Start 04/07/16 at 09:00; Stop 04/07/16 at 09:07; Status DC Piperacillin Sod/ Tazobactam Sod 50 ml @ 100 mls/hr Q6H IV Last administered on 04/20/16 05:04; Start 04/07/16 at 11:00; Stop 04/20/16 at 10:59; Status DC Magnesium Sulfate/ Dextrose (Magnesium Sulfate 1 Gm Premix) 100 ml @ 100 mls/ hr ONCE ONCE IV Last administered on 04/07/16 15:30; Start 04/07/16 at 13:15; Stop 04/07/16 at 14:14; Status DC Potassium Chloride (KCl 40 Meq/30 ml Liq) 40 meq ONCE ONCE PEG Last administered on 04/07/16 15:30; Start 04/07/16 at 13:15; Stop 04/07/16 at 13:16; Status DC Lidocaine HCl (Xylocaine 1% Inj (50 ml)) 50 ml STK-MED ONCE .ROUTE ; Start at 15:46; Stop 04/07/16 at 15:47; Status DC Metoprolol Tartrate (Lopressor) 25 mg ONCE ONCE PO ; Start 04/08/16 at 00:15; Stop 04/08/16 at 00:16; Status DC Morphine Sulfate (Morphine Inj) 2 mg Q4HR IV ; Start 04/08/16 at 12:00; Stop 12/19 at 08:27; Status DC Morphine Sulfate 2 mg 2 mg Q2HR PRN IV PUSH PAIN SCALE 9 TO 10; Start 04/08/16 at 09:00 Potassium Chloride (KCl 20 Meq Premix Inj) 100 ml @ 50 mls/hr Q2H IV Last administered on 04/08/16 18:59; Start 04/08/16 at 12:00; Stop 04/08/16 at 15:59; Status DC Potassium Chloride (KCl 40 Meq/30 ml Liq) 40 meq Q12HR NG Last administered on 05/02/16 08:28; Start 04/08/16 at 12:00 Acetaminophen/ Hydrocodone Bitart 15 ml 15 ml Q3HR PRN PO pain1-9 Last administered on 05/02/16 08:28; Start 04/08/16 at 14:45 Potassium Chloride (KCl 20 Meq Premix Inj) 100 ml @ As Directed STK-MED ONCE .ROUTE ; Start 04/08/16 at 18:57; Stop 04/08/16 at 18:58; Status DC Magnesium Oxide (Mag-Ox) 400 mg Q12HR PEG Last administered on 04/12/16 22:14; Start 04/10/16 at 14:45; Stop 04/12/16 at 21:00; Status DC Potassium Chloride 40 meq 40 meq ONCE ONCE PEG ; Start 04/11/16 at 09:00; Stop 04/11/16 at 09:35; Status DC Magnesium Sulfate/ Dextrose (Magnesium Sulfate 1 Gm Premix) 100 ml @ 100 mls/ hr ONCE ONCE IV Last administered on 04/11/16 10:03; Start 04/11/16 at 09:00; Stop 04/11/16 at 09:59; Status DC Iohexol 95 ml 95 ml STK-MED ONCE IV Last administered on 04/11/16 14:39; Start 04/11/16 at 14:39; Stop 04/11/16 at 14:40; Status DC Sodium Chloride (NS 250 ml Inj) 250 ml @ 0 mls/hr ONCE@1800 ONCE IV ; Start 04/13/16 at 18:00; Stop 04/13/16 at 18:01; Status DC Granisetron HCl (Kytril Inj) 1 mg ONCE@1700 ONCE IV PUSH Last administered on 04/13/16 18:10; Start 04/13/16 at 17:00; Stop 04/13/16 at 17:01; Status DC Famotidine 20 mg 20 mg ONCE@1700 ONCE IV PUSH Last administered on 04/13/16 18 :09; Start 04/13/16 at 17:00; Stop 04/13/16 at 17:01; Status DC Dexamethasone Sodium Phosphate/ Sodium Chloride (Decadron Inj/NS Inj) 52.5 ml @ 210 mls/hr ONCE@1700 ONCE IV Last administered on 04/13/16 17:23; Start 04/13 at 17:00; Stop 04/13/16 at 17:14; Status DC Diphenhydramine HCl 25 mg 25 mg ONCE@1700 ONCE PO Last administered on 17:23; Start 04/13/16 at 17:00; Stop 04/13/16 at 17:01; Status DC Paclitaxel 69.75 mg/Sodium Chloride 261.625 ml @ 130.813 mls/hr ONCE@1800 ONCE IV Last administered on 04/13/16 19:37; Start 04/13/16 at 18:00; Stop at 19:59; Status DC Carboplatin/ Sodium Chloride (Paraplatin Inj/ NS 250 ml Inj) 250 ml @ 500 mls/ hr ONCE@21 ONCE IV Last administered on 04/13/16 21:59; Start 04/13/16 at 21:00 ; Stop 04/13/16 at 21:29; Status DC Hyoscyamine Sulfate (Levsin Inj) 0.25 mg ONCE ONCE IVP Last administered on 19:45; Start 04/14/16 at 19:45; Stop 04/14/16 at 19:46; Status DC Magnesium Oxide 400 mg 400 mg Q12HR GT Last administered on 04/17/16 08:57; Start 04/15/16 at 09:00; Stop 04/17/16 at 13:59; Status DC Magnesium Sulfate/ Dextrose (Magnesium Sulfate 1 Gm Premix) 100 ml @ 100 mls/ hr ONCE ONCE IV Last administered on 04/15/16 09:25; Start 04/15/16 at 09:00 ; Stop 04/15/16 at 09:59; Status DC Docusate Sodium (Colace Liq) 100 mg BID PRN GT CONSTIPATION; Start 04/15/16 at 12:15 Senna/Docusate Sodium (Clara-Colace) 2 tab BID G-TUBE Last administered on 08:19; Start 04/15/16 at 21:00 Lactulose (Lactulose Liq) 30 ml TID PRN G-TUBE CONSTIPATION; Start 04/15/16 at 12:15 Bisacodyl (Dulcolax Supp) 10 mg DAILY PRN [place] CONSTIPATION; Start 04/15/16 at 12 :15 Magnesium Hydroxide 30 ml 30 ml Q6H PRN GT CONSTIPATION; Start 04/15/16 at 12: 15 Magnesium Sulfate/ Dextrose (Magnesium Sulfate 1 Gm Premix) 100 ml @ 100 mls/ hr ONCE ONCE IV Last administered on 04/15/16 13:00; Start 04/15/16 at 13:00 ; Stop 04/15/16 at 13:59; Status DC Potassium Chloride (KCl 40 Meq/30 ml Liq) 40 meq ONCE ONCE G-TUBE Last administered on 04/16/16 09:00; Start 04/16/16 at 09:00; Stop 04/16/16 at 09:02 ; Status DC Metoclopramide HCl 5 mg 5 mg ACHS G-TUBE Last administered on 04/19/16 11:30; Start 04/16/16 at 11:00; Stop 04/19/16 at 13:58; Status DC Magnesium Sulfate/ Dextrose (Magnesium Sulfate 1 Gm Premix) 100 ml @ 100 mls/ hr ONCE ONCE IV Last administered on 04/16/16 16:56; Start 04/16/16 at 14:45 ; Stop 04/16/16 at 15:44; Status DC Padimate O (Chapstick) 1 applic UNSCH PRN TOP DISCOMFORT Last administered on 00:01; Start 04/17/16 at 10:00 Magnesium Oxide 800 mg 800 mg Q12HR GT Last administered on 05/02/16 08:29; Start 04/17/16 at 21:00 Magnesium Sulfate/ Dextrose (Magnesium Sulfate 1 Gm Premix) 100 ml @ 100 mls/ hr Q1H IV Last administered on 04/17/16 18:34; Start 04/17/16 at 14:00; Stop 04/17/16 at 15:59; Status DC Potassium Chloride 20 meq 20 meq ONCE ONCE GT Last administered on 04/17/16 14:47; Start 04/17/16 at 14:00; Stop 04/17/16 at 14:04; Status DC Magnesium Sulfate/ Dextrose (Magnesium Sulfate 1 Gm Premix) 100 ml @ 100 mls/ hr Q1H IV ; Start 04/17/16 at 18:30; Stop 04/17/16 at 19:29; Status DC Potassium Chloride (KCl 40 Meq/30 ml Liq) 40 meq ONCE ONCE PO Last administered on 04/18/16 09:09; Start 04/18/16 at 08:00; Stop 04/18/16 at 08:01 ; Status DC Metoclopramide HCl 10 mg 10 mg ACHS G-TUBE Last administered on 05/02/16 06:19 ; Start 04/19/16 at 16:00 Metronidazole (Flagyl 500 Mg Inj) 100 ml @ 100 mls/hr Q6H IV Last administered on 05/01/16 14:30; Start 04/20/16 at 14:00; Stop 05/01/16 at 15:39 ; Status DC Potassium Chloride (KCl) 30 meq ONCE ONCE PO ; Start 04/20/16 at 13:45; Stop at 13:47; Status DC Granisetron HCl (Kytril Inj) 1 mg ONCE@1700 ONCE IV PUSH Last administered on 04/21/16 14:20; Start 04/21/16 at 12:00; Stop 04/21/16 at 12:01; Status DC Famotidine 20 mg 20 mg ONCE ONCE IV PUSH Last administered on 04/21/16 14:20 ; Start 04/21/16 at 12:00; Stop 04/21/16 at 12:01; Status DC Sodium Chloride 250 ml @ 0 mls/hr ONCE ONCE IV Last administered on 04/21/16 14:30; Start 04/21/16 at 12:00; Stop 04/21/16 at 12:01; Status DC Dexamethasone Sodium Phosphate/ Sodium Chloride (Decadron Inj/NS Inj) 52.5 ml @ 210 mls/hr ONCE ONCE IV Last administered on 04/21/16 14:20; Start at 12:00; Stop 04/21/16 at 12:14; Status DC Diphenhydramine HCl 25 mg 25 mg ONCE ONCE PO ; Start 04/21/16 at 12:00; Stop at 12:01; Status DC Paclitaxel 67.05 mg/Sodium Chloride 261.175 ml @ 261.625 mls/hr ONCE ONCE IV Last administered on 04/21/16 14:47; Start 04/21/16 at 13:00; Stop 04/21/16 at 13:59; Status DC Carboplatin/ Sodium Chloride (Paraplatin Inj/ NS 250 ml Inj) 250 ml @ 500 mls/ hr ONCE ONCE IV Last administered on 04/21/16 16:12; Start 04/21/16 at 14:00 ; Stop 04/21/16 at 14:29; Status DC Diphenhydramine HCl (Benadryl Liq) 25 mg ONCE ONCE PEG Last administered on 14:20; Start 04/21/16 at 15:00; Stop 04/21/16 at 15:01; Status DC Polyethylene Glycol 17 gm 17 gm DAILY G-TUBE Last administered on 04/27/16 10: 05; Start 04/22/16 at 09:00 Cefepime HCl 2000 mg/Sodium Chloride 100 ml @ 200 mls/hr Q12H IV Last administered on 05/01/16 10:39; Start 04/23/16 at 09:00; Stop 05/01/16 at 15:40 ; Status DC Sodium Chloride 1,000 ml @ 84 mls/hr [id number] IV Last administered on 20:24; Start 04/23/16 at 10:00; Stop 05/01/16 at 15:40; Status DC Potassium Phosphate/Sodium Chloride (Potassium Phosphate Inj/NS Inj) 155 ml @ 38.75 mls/ hr ONCE ONCE IV Last administered on 04/24/16 16:28; Start at 12:00; Stop 04/24/16 at 15:59; Status DC Potassium Phosphate (K-Phos) 500 mg Q12HR PO Last administered on 05/02/16 08: 51; Start 04/24/16 at 12:00 Lactobacillus Acidophilus 1 tab 1 tab TID PO Last administered on 05/02/16 08: 52; Start 04/24/16 at 18:00 Sodium Chloride (NS 250 ml Inj) 250 ml @ 15 mls/hr ONCE ONCE IV Last administered on 04/26/16 19:55; Start 04/26/16 at 13:00; Stop 04/27/16 at 05:39 ; Status DC Acetaminophen (Tylenol) 650 mg Q4H PRN PO SEE LABEL COMMENTS; Start 04/26/16 at 13:00; Stop 04/26/16 at 17:01; Status DC Diphenhydramine HCl (Benadryl) 25 mg Q4H PRN PO SEE LABEL COMMENTS; Start 04/26 at 13:00; Stop 04/26/16 at 17:01; Status DC Acetaminophen (Tylenol) 650 mg Q4H PRN PO SEE LABEL COMMENTS Last administered on 04/26/16 23:38; Start 04/26/16 at 18:45; Stop 04/27/16 at 08:00; Status DC Diphenhydramine HCl (Benadryl) 25 mg Q4H PRN PO SEE LABEL COMMENTS Last administered on 04/26/16 23:37; Start 04/26/16 at 18:45; Stop 04/27/16 at 08:00 ; Status DC Diphenhydramine HCl (Benadryl Inj) 50 mg STK-MED ONCE .ROUTE ; Start 04/26/16 at 18:39; Stop 04/26/16 at 18:40; Status DC Diphenhydramine HCl 25 mg 25 mg Q4H PRN IV PRIOR/DURING BLOOD TRANSFUSION; Start 04/26/16 at 19:00 Magnesium Sulfate/ Dextrose 100 ml @ 100 mls/hr ONCE ONCE IV Last administered on 04/27/16 12:46; Start 04/27/16 at 12:00; Stop 04/27/16 at 12:59 ; Status DC Paclitaxel 67.05 mg/Sodium Chloride 261.175 ml @ 261.175 mls/hr ONCE ONCE IV Last administered on 04/28/16 21:43; Start 04/28/16 at 17:00; Stop 04/28/16 at 17:59; Status DC Carboplatin/ Sodium Chloride (Paraplatin Inj/ NS 250 ml Inj) 250 ml @ 500 mls/ hr ONCE ONCE IV Last administered on 04/29/16 00:00; Start 04/28/16 at 18:00 ; Stop 04/28/16 at 18:29; Status DC Granisetron HCl (Kytril Inj) 1 mg ONCE@1600 ONCE IV Last administered on 19:58; Start 04/28/16 at 16:00; Stop 04/28/16 at 16:01; Status DC Famotidine 20 mg 20 mg ONCE@1600 ONCE IV Last administered on 04/28/16 20:13 ; Start 04/28/16 at 16:00; Stop 04/28/16 at 16:01; Status DC Dexamethasone Sodium Phosphate/ Sodium Chloride (Decadron Inj/NS Inj) 52.5 ml @ 210 mls/hr ONCE@1600 ONCE IV Last administered on 04/28/16 19:58; Start at 16:00; Stop 04/28/16 at 16:14; Status DC Diphenhydramine HCl 25 mg 25 mg ONCE@1600 ONCE PO Last administered on 20:18; Start 04/28/16 at 16:00; Stop 04/28/16 at 16:01; Status DC Sodium Chloride (NS 250 ml Inj) 250 ml @ 0 mls/hr ONCE IV Last administered on 04/28/16 21:43; Start 04/28/16 at 14:00; Stop 04/28/16 at 23:00; Status DC Fluconazole (Diflucan) 200 mg DAILY PO Last administered on 05/02/16 08:51; Start 05/01/16 at 15:45 Levofloxacin (Levaquin Liq) 500 mg DAILY TUBE Last administered on 05/02/16 08:28; Start 05/02/16 at 09:00 Metronidazole (Flagyl) 500 mg Q8HR PO Last administered on 05/02/16 06:19; Start 05/01/16 at 22:00 Multi-Ingredient Mouthwash/Gargle (Magic Mouthwash Adult Liq) 5 ml QID SWISH- SWAL Last administered on 05/02/16 08:52; Start 05/01/16 at 18:00 A/P Assessment and Plan squamous cell carcinoma of the oropharynx -CT of the face with very large heterogeneous soft tissue mass along the right side of the face with gross destruction involving most of the right mandible -CT of the chest and abdomen with possible lung/ liver mets. 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 continue with pain control. - general and facial surgery following for debulking next week. ? Stomatitis -due to chemo -patient has magic wash. -sepsis with possible right facial wound and central line as the source-central line discontinued one bottle of blood cultures with pseudomonas stutzeri - s/p IV Zosyn total 2 weeks end date April 20- repeated blood cultures 04/09 , 04/19, 04/21 and . Negative CXR. Negative UA. -Recurrent fever from infected tumor. Continue Empiric Flagyl April 20 and cefepime April 23. Follow up cultures negative to date. Leukocytosis -clinically stable. -continue to monitor. Sinus tachycardia - secondary to sepsis and fever as well as anemia. -TSH within normal limits Could also be from anxiety acute kidney injury/ hyponatremia due to dehydration - improved - will monitor Hypercalcemia - received a dose of aredia -resolved -will continue to monitor. anemia due to chemo - s/p PRBC transfusion- will monitor H/H- transfuse to keep Hb > 8 hypokalemia/hypomagnesemia/hypophosphatemia -replenish as needed. -severe malnutrition - s/p PEG placement-started on tube feeding -Patient with intolerance likely contributed by constipation. Continue Reglan and monitor response. -on bolus feeds. Constipation. -Monitor hemorrhoidal bleeding -DVT prophylaxis with lovenox a -DNR status palliative care following. d./w patient, nurse, and brother. Dispo: most likely long hospital stay due to severity of cancer. continue with chemo and possible debulking next week. Magui Marcus MD May 02, 2016 09:33
[2016-05-02 12:11] LABS: ALKALINE PHOSPHATASE 116 U/L (45-117); ALT (GPT) 12 U/L (12-78); ANION GAP 7 MEQ/L (5-15); AST (GOT) 14 U/L (15-37); BICARBONATE 28.5 MEQ/L (21.0-32.0); BLOOD UREA NITROGEN 10 MG/DL (7-18); CHLORIDE 95 MEQ/L (98-107); GLOMERULAR FILTRATION RATE 218 ML/MIN (>89); POTASSIUM 4.3 MEQ/L (3.5-5.1); SODIUM (NA) 130 MEQ/L (136-145); TOTAL BILIRUBIN ADULT 0.3 MG/DL (0.2-1.0)
[2016-05-02] MEDS: ENOXAPARIN SODIUM 30 MG/0.3 ML SYRINGE SQ SCH (14:28)
[2016-05-02] MEDS: ACETAMINOPHEN 325 MG TAB PO PRN (16:58)
--- NOTE | 2016-05-02 19:59 | PD.ONC.PN ---
Subjective Subjective Remarks pain surprisingly modest in the face off locally advanced disease' Objective Data Date Time Temp Pulse Resp B/P Pulse Ox O2 Delivery O2 Flow Rate FiO2 05/02/16 18:30 99.5 05/02/16 16:00 100.4 116 20 97/55 97 05/02/16 12:00 96.5 102 20 108/56 99 05/02/16 08:00 98.7 114 22 91/54 98 05/02/16 04:00 97.9 98 17 95/55 99 05/02/16 00:00 97.7 100 17 99/56 98 05/01/16 20:00 97.7 107 18 92/55 99 05/02/16 05/02/16 05/02/16 07:00 15:00 23:00 Intake Total 0 ml Balance 0 ml Result Diagram: 05/01/16 1333 05/02/16 1055 Laboratory Results Laboratory Tests Test 05/02/16 10:55 Sodium Level 130 MEQ/L Potassium Level 4.3 MEQ/L Chloride Level 95 MEQ/L Carbon Dioxide Level 28.5 MEQ/L Anion Gap 7 MEQ/L Blood Urea Nitrogen 10 MG/DL Creatinine 0.44 MG/DL Estimat Glomerular Filtration 218 ML/MIN Rate Random Glucose 117 MG/DL Calcium Level 8.0 MG/DL Total Bilirubin 0.3 MG/DL Aspartate Amino Transf 14 U/L (AST/SGOT) Alanine Aminotransferase 12 U/L (ALT/SGPT) Alkaline Phosphatase 116 U/L Total Protein 5.6 GM/DL Albumin 1.5 GM/DL Culture Results Microbiology Date/Time Procedure Status Source Growth 04/30/16 20:17 Aerobic Blood Culture - Preliminary Resulted Blood Peripheral NO GROWTH IN 2 DAYS 04/30/16 20:17 Anaerobic Blood Culture - Preliminary Resulted Blood Peripheral NO GROWTH IN 2 DAYS 04/30/16 20:23 Aerobic Blood Culture - Preliminary Resulted Blood Peripheral NO GROWTH IN 2 DAYS 04/30/16 20:23 Anaerobic Blood Culture - Preliminary Resulted Blood Peripheral NO GROWTH IN 2 DAYS Administered Medications Medications (Trade) Dose Ordered Sig/Sara Route PRN Reason Start Time Stop Time Status Last Admin Dose Admin Ondansetron HCl (Zofran Inj) 4 mg Q6H PRN IV PUSH NAUSEA 04/02/16 01:45 04/02/16 02:38 IV Flush (NS Flush) 2 ml UNSCH PRN IVF FLUSH AFTER USING IV ACCESS 04/02/16 08:15 04/17/16 05:08 IV Flush (NS Flush) 2 ml BID IVF 04/02/16 09:00 05/02/16 08:27 Diphenhydramine HCl (Benadryl) 25 mg Q6H PRN PO ITCHING 04/02/16 09:00 04/12/16 04:30 Enoxaparin Sodium (Lovenox Inj) 30 mg Q24H SQ 04/04/16 15:30 05/02/16 14:28 Water (Free Water) VOLUME: 200 ML Q6HR G-TUBE 04/04/16 08:45 05/02/16 17:35 Acetaminophen (Tylenol) 650 mg Q4H PRN PO FEVER OVER 101.0 04/07/16 01:45 05/02/16 16:58 Potassium Chloride (KCl 40 Meq/30 ml Liq) 40 meq Q12HR NG 04/08/16 12:00 05/02/16 08:28 Acetaminophen/ Hydrocodone Bitart (Hycet 325-7.5 Mg Liq) 15 ml Q3HR PRN PO pain1-9 04/08/16 14:45 05/02/16 08:28 Senna/Docusate Sodium (Clara-Colace) 2 tab BID G-TUBE 04/15/16 21:00 04/30/16 08:19 Padimate O (Chapstick) 1 applic UNSCH PRN TOP DISCOMFORT 04/17/16 10:00 04/18/16 00:01 Magnesium Oxide (Mag-Ox) 800 mg Q12HR GT 04/17/16 21:00 05/02/16 08:29 Metoclopramide HCl (Reglan Liq) 10 mg ACHS G-TUBE 04/19/16 16:00 05/02/16 16:54 Polyethylene Glycol (Miralax) 17 gm DAILY G-TUBE 04/22/16 09:00 04/27/16 10:05 Potassium Phosphate (K-Phos) 500 mg Q12HR PO 04/24/16 12:00 05/02/16 08:51 Lactobacillus Acidophilus (Lactinex) 1 tab TID PO 04/24/16 18:00 05/02/16 17:51 Fluconazole (Diflucan) 200 mg DAILY PO 05/01/16 15:45 05/02/16 08:51 Levofloxacin (Levaquin Liq) 500 mg DAILY TUBE 05/02/16 09:00 05/02/16 08:28 Metronidazole (Flagyl) 500 mg Q8HR PO 05/01/16 22:00 05/02/16 14:28 Multi-Ingredient Mouthwash/Gargle (Magic Mouthwash Adult Liq) 5 ml QID SWISH-SWAL 05/01/16 18:00 05/02/16 17:51 Objective Remarks GENERAL: chronically ill SKIN: Warm and dry. HEAD: Normocephalic. EYES: No scleral icterus. Large opening from tumor right lower face into oral cavity. ++ thrush CARDIOVASCULAR: Regular rate and rhythm without murmurs. RESPIRATORY: Breath sounds equal bilaterally. No accessory muscle use. GASTROINTESTINAL: Abdomen soft. g tube in place. EXTREMITIES: No cyanosis, or edema. MUSCULOSKELETAL: muscle wasting. NEUROLOGICAL: No obvious focal deficit. Awake, alert, and oriented x3. PSYCHIATRIC: Appropriate mood and affect Assessment/Plan Assessment 35y/o male with invasive squamous cell carcinoma. 04/12/16--XRT started; twice daily. 04/13/16: weekly carbo/taxol dose 1 given 04/21/16: weekly carbo/taxol dose 2 given 04/28/16: weekly carbo/taxol dose 3 given Plan 1. continue daily radiation 2. continue weekly carbo and taxol 3. the mass has significantly shrunk since starting chemo/XRT. He will require debridement of tissue and it is my understanding that this will take place this week by oral surgery. 4. reviewed with patient and brother using cafe server via computer which works remarkably well. Yovany Lezama MD May 02, 2016 19:59
[2016-05-03] VITALS: BP 97/59; PULSE 111; RESP 18; TEMP 97.6; O2SAT 99
[2016-05-03] MEDS: FREE WATER G-TUBE SCH ×5 (00:25→23:40)
[2016-05-03 04:00] VITALS: BP 90/52; PULSE 110; RESP 17; TEMP 97.5; O2SAT 96
[2016-05-03] MEDS: metroNIDAZOLE 500 MG TAB PO SCH ×3 (06:25→23:45)
[2016-05-03] MEDS: METOCLOPRAMIDE HCL SYRUP 10 MG/10 ML UDC G-TUBE SCH ×4 (06:25→21:32)
[2016-05-03 08:00] VITALS: BP 118/67; PULSE 117; RESP 16; TEMP 100.2; O2SAT 100
[2016-05-03 08:00] LABS: HEMATOCRIT 26.5 % (39.0-51.0); MEAN CELL VOLUME 88.4 FL (80.0-100.0); MEAN CORPUSCULAR HEMOGLOBIN 29.8 PG (27.0-34.0); MEAN CORPUSCULAR HGB CONC 33.7 % (32.0-36.0); PLATELET COUNT 291 TH/MM3 (150-450); RED CELL DISTRIBUTION WIDTH 14.4 % (11.6-17.2); REVIEW FLAG FINAL; WHITE BLOOD COUNT 5.4 TH/MM3 (4.0-11.0)
--- NOTE | 2016-05-03 09:38 | HHI.PR ---
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 Patient has no complaints. He stated pain is controlled with current regimen. He also stated the oral hygiene is working. His brother is at the bedside. Objective Vitals Vital Signs Date Time Temp Pulse Resp B/P Pulse Ox O2 Delivery O2 Flow Rate FiO2 05/03/16 08:00 100.2 117 16 118/67 100 05/03/16 04:00 97.5 110 17 90/52 96 05/03/16 00:00 97.6 111 18 97/59 99 05/02/16 20:00 99.1 114 18 128/86 98 05/02/16 18:30 99.5 05/02/16 16:00 100.4 116 20 97/55 97 05/02/16 12:00 96.5 102 20 108/56 99 I/O 05/02/16 05/02/16 05/02/16 05/03/16 05/03/16 05/03/16 07:00 15:00 23:00 07:00 15:00 23:00 Intake Total 0 ml Balance 0 ml Intake Oral 0 ml # Voids 2 2 1 # Bowel Movements 1 Result Diagram: 05/03/16 0649 05/02/16 1055 Objective Remarks Gen NAD HEENT: large ulcerating lesion on right side of face. mouth is partial shut. CV RRR. no r/m/g Resp CTA B/L Abd soft NDNT Procedures central line placement PEG placement bone biopsy teeth extraction Medications and IVs Current Medications Sodium Chloride (NS 1000 ml Inj) 1,000 ml @ 75 mls/hr [id number] IV Last administered on 04/02/16 02:38; Start 04/02/16 at 01:45; Stop 04/02/16 at 08:25 ; Status DC Morphine Sulfate (Morphine Inj) 2 mg Q2H PRN IV BREAKTHROUGH PAIN Last administered on 04/02/16 02:38; Start 04/02/16 at 01:45; Stop 04/08/16 at 09:45 ; Status DC Ondansetron HCl 4 mg 4 mg Q6H PRN IV PUSH NAUSEA Last administered on 02:38; Start 04/02/16 at 01:45 Sodium Chloride 500 ml @ 0 mls/hr BOLUS ONCE IV Last administered on 04:00; Start 04/02/16 at 04:00; Stop 04/02/16 at 04:01; Status DC Potassium Chloride/Dextrose/ Sod Cl (D5-NS + KCl 20 Meq Inj) 1,000 ml @ 125 mls /hr Q8H IV Last administered on 04/03/16 11:51; Start 04/02/16 at 09:00; Stop 04/04/16 at 08:51; Status DC IV Flush (NS Flush) 2 ml UNSCH PRN IVF FLUSH AFTER USING IV ACCESS Last administered on 04/17/16 05:08; Start 04/02/16 at 08:15 IV Flush (NS Flush) 2 ml BID IVF Last administered on 05/02/16 22:01; Start at 09:00 Acetaminophen (Tylenol) 650 mg Q4H PRN PO PAIN SCALE 1 TO 10; Start 04/02/16 at 09:00; Stop 04/02/16 at 09:00; Status DC Ibuprofen (Motrin) 600 mg Q4H PRN PO PAIN SCALE 1 TO 5; Start 04/02/16 at 08:15 ; Stop 04/02/16 at 08:49; Status DC Hydromorphone HCl (Dilaudid Pf Inj) 0.5 mg Q2H PRN IV PAIN SCALE 6 TO 10; Start 04/02/16 at 08:15; Stop 04/02/16 at 08:49; Status DC Diphenhydramine HCl (Benadryl) 25 mg Q6H PRN PO ITCHING Last administered on 04:30; Start 04/02/16 at 09:00 Miscellaneous Information (Post-op Orders (for Pharmacy)) STAT ONCE XX ; Start 04/02/16 at 08:15; Stop 04/03/16 at 06:06; Status DC Miscellaneous Information 1 ONCE ONCE XX ; Start 04/02/16 at 08:15; Stop at 06:06; Status DC Enoxaparin Sodium (Lovenox Inj) 30 mg Q24H SQ Last administered on 05/02/16 14 :28; Start 04/04/16 at 15:30 Naloxone HCl (Narcan Inj) 0.4 mg UNSCH PRN IV RESPIRATORY RATE LESS THAN 10; Start 04/02/16 at 08:15; Stop 04/02/16 at 08:49; Status DC Diphenhydramine HCl (Benadryl Inj) 25 mg Q6H PRN IV ITCHING; Start 04/02/16 at 09:00; Stop 04/02/16 at 09:00; Status DC POULTRY CLE[employer]ER Dosage Infused (Pha) 1 Q8HR .XX ; Start 04/02/16 at 09:00; Stop 04/02/16 at 09:00; Status DC Acetaminophen/ Hydrocodone Bitart (Hycet 325-7.5 Mg Liq) 15 ml Q4H PRN PO Last administered on 04/08/16t 10:31; Start 04/02/16 at 09:00; Stop 04/08/16 at 14 :40; Status DC Ibuprofen (Motrin Liq) 600 mg Q4H PRN PO PAIN SCALE 1-5; Start 04/02/16 at 09: 00; Stop 04/02/16 at 09:02; Status DC Ibuprofen 600 mg 600 mg Q4H PRN PO PAIN SCALE 1-5; Start 04/02/16 at 09:02; Stop 04/14/16 at 08:27; Status DC Sodium Chloride (NS 500 ml Inj) 500 ml @ 30 mls/hr [id number] IV ; Start 04/03/16 at 03:15; Stop 04/04/16 at 03:14; Status DC Bupivacaine HCl/ Epinephrine Bitart (Sensorcaine-Epinephrine Pf 0.25% Inj) 20 ml STK-MED ONCE .ROUTE ; Start 04/03/16 at 13:46; Stop 04/03/16 at 13:47; Status DC Chlorhexidine Gluconate (Peridex 0.12% Liq) 60 ml STK-MED ONCE .ROUTE ; Start at 13:46; Stop 04/03/16 at 13:47; Status DC Heparin Sodium (Porcine) (Heparin Inj) 10,000 units STK-MED ONCE .ROUTE ; Start 04/03/16 at 13:46; Stop 04/03/16 at 13:47; Status DC Heparin Sodium (Porcine) (Heparin Inj) 10,000 units STK-MED ONCE .ROUTE ; Start 04/03/16 at 13:46; Stop 04/03/16 at 13:47; Status DC Cefazolin Sodium (Ancef Inj) 1,000 mg STK-MED ONCE IV Last administered on 04/03 14:43; Start 04/03/16 at 14:43; Stop 04/03/16 at 15:03; Status DC Lidocaine/ Epinephrine (Xylocaine-Epi 1%-1:100,000 Inj) 50 ml STK-MED ONCE .ROUTE ; Start 04/03/16 at 15:35; Stop 04/03/16 at 15:36; Status DC Lidocaine/ Epinephrine (Xylocaine-Epi 2%-1:100,000 Inj) 30 ml STK-MED ONCE .ROUTE Last administered on 04/03/16 16:01; Start 04/03/16 at 15:35; Stop at 15:36; Status DC Microfibriller Collagen Hemostat (Avitene Powder Pack) 1 gm STK-MED ONCE .ROUTE ; Start 04/03/16 at 15:41; Stop 04/03/16 at 15:42; Status DC Fentanyl Citrate 250 mcg 250 mcg STK-MED ONCE .ROUTE ; Start 04/03/16 at 16:34; Stop 04/03/16 at 16:35; Status DC Sodium Chloride 11 meq/Sodium Acetate 59 meq/ Potassium Chloride 40 meq/ Magnesium Chloride 10 meq/ Multivitamins 10 ml/Folic Acid 1 mg/Amino Acids/ Dextrose 2,067.5261 ml @ 83 mls/hr Q24H IV-CENTRAL Last administered on 22:27; Start 04/03/16 at 20:00; Stop 04/08/16 at 09:30; Status DC Fat Emulsion Intravenous (Liposyn Iii 20% Inj) 250 ml @ 10 mls/hr Q24H IV- CENTRAL Last administered on 04/06/16 22:26; Start 04/03/16 at 20:00; Stop 04/08 at 09:31; Status DC Morphine Sulfate (*morphine INJ PERIprocedure ONLY) 8 mg STK-MED ONCE .ROUTE Last administered on 04/03/16 17:22; Start 04/03/16 at 17:22; Stop 04/03/16 at 17:23; Status DC Miscellaneous Information ALL NURSING DEPARTME... UNSCH PRN XX SEE LABEL COMMENTS; Start 04/03/16 at 16:28; Stop 04/04/16 at 16:27; Status DC Potassium Chloride 100 ml @ 50 mls/hr Q2H IV Last administered on 04/04/16 01 :52; Start 04/03/16 at 21:45; Stop 04/04/16 at 01:44; Status DC Magnesium Sulfate/ Dextrose (Magnesium Sulfate 1 Gm Premix) 100 ml @ 100 mls/ hr Q1H IV Last administered on 04/04/16 00:16; Start 04/03/16 at 21:45; Stop 04/03/16 at 23:44; Status DC Water (Free Water) VOLUME: 200 ML Q6HR G-TUBE Last administered on 05/03/16 06: 00; Start 04/04/16 at 08:45 Potassium Chloride (KCl 40 Meq/30 ml Liq) 40 meq ONCE ONCE PEG Last administered on 04/04/16 10:45; Start 04/04/16 at 10:45; Stop 04/04/16 at 10:50 ; Status DC Propofol (Diprivan 200 Mg/20 ml Inj) 200 mg STK-MED ONCE IV ; Start 04/03/16 at 10:46; Stop 04/04/16 at 10:46; Status DC Phenylephrine HCl (Neosynephrine/ NS 1000 Mcg/10ml Syr) 1,000 mcg STK-MED ONCE IV ; Start 04/03/16 at 10:46; Stop 04/04/16 at 10:46; Status DC Ondansetron HCl 4 mg 4 mg STK-MED ONCE IV PUSH ; Start 04/03/16 at 10:46; Stop 04/04/16 at 10:46; Status DC Lactated Ringer's 1,000 ml @ As Directed STK-MED ONCE IV ; Start 04/03/16 at 10 :46; Stop 04/04/16 at 10:46; Status DC Pamidronate Disodium/Sodium Chloride (Aredia Inj/NS 1000 ml Inj) 1,000 ml @ 42 mls/hr ONCE ONCE IV Last administered on 04/04/16 23:37; Start 04/04/16 at 22 :00; Stop 04/05/16 at 21:48; Status DC Potassium Chloride 40 meq 40 meq ONCE ONCE PEG Last administered on 04/05/16 15:12; Start 04/05/16 at 12:00; Stop 04/05/16 at 12:01; Status DC Levofloxacin/ Dextrose 100 ml @ 100 mls/hr Q24H IV Last administered on 22:27; Start 04/06/16 at 18:00; Stop 04/07/16 at 09:06; Status DC Sodium Chloride (NS 1000 ml Inj) 1,000 ml @ 0 mls/hr BOLUS ONCE IV Last administered on 04/07/16 01:00; Start 04/07/16 at 01:00; Stop 04/07/16 at 01:01; Status DC Acetaminophen (Tylenol) 650 mg Q4H PRN PO FEVER OVER 101.0 Last administered on 05/02/16 16:58; Start 04/07/16 at 01:45 Metoprolol Tartrate 25 mg 25 mg ONCE ONCE PO Last administered on 04/07/16 03: 16; Start 04/07/16 at 03:15; Stop 04/07/16 at 03:16; Status DC Potassium Chloride/Dextrose/ Sod Cl (D5-NS + KCl 20 Meq Inj) 1,000 ml @ 42 mls/ hr [id number] IV Last administered on 04/15/16 06:17; Start 04/07/16 at 07:45; Stop 04/16/16 at 09:02; Status DC Potassium Chloride 40 meq 40 meq ONCE ONCE PO Last administered on 04/07/16 08 :15; Start 04/07/16 at 08:15; Stop 04/07/16 at 08:18; Status DC Cefepime HCl 2000 mg/Sodium Chloride 100 ml @ 200 mls/hr Q12H IV Last administered on 04/07/16 09:00; Start 04/07/16 at 09:00; Stop 04/07/16 at 09:07; Status DC Piperacillin Sod/ Tazobactam Sod 50 ml @ 100 mls/hr Q6H IV Last administered on 04/20/16 05:04; Start 04/07/16 at 11:00; Stop 04/20/16 at 10:59; Status DC Magnesium Sulfate/ Dextrose (Magnesium Sulfate 1 Gm Premix) 100 ml @ 100 mls/ hr ONCE ONCE IV Last administered on 04/07/16 15:30; Start 04/07/16 at 13:15; Stop 04/07/16 at 14:14; Status DC Potassium Chloride (KCl 40 Meq/30 ml Liq) 40 meq ONCE ONCE PEG Last administered on 04/07/16 15:30; Start 04/07/16 at 13:15; Stop 04/07/16 at 13:16; Status DC Lidocaine HCl (Xylocaine 1% Inj (50 ml)) 50 ml STK-MED ONCE .ROUTE ; Start at 15:46; Stop 04/07/16 at 15:47; Status DC Metoprolol Tartrate (Lopressor) 25 mg ONCE ONCE PO ; Start 04/08/16 at 00:15; Stop 04/08/16 at 00:16; Status DC Morphine Sulfate (Morphine Inj) 2 mg Q4HR IV ; Start 04/08/16 at 12:00; Stop 12/19 at 08:27; Status DC Morphine Sulfate 2 mg 2 mg Q2HR PRN IV PUSH PAIN SCALE 9 TO 10; Start 04/08/16 at 09:00 Potassium Chloride (KCl 20 Meq Premix Inj) 100 ml @ 50 mls/hr Q2H IV Last administered on 04/08/16 18:59; Start 04/08/16 at 12:00; Stop 04/08/16 at 15:59; Status DC Potassium Chloride (KCl 40 Meq/30 ml Liq) 40 meq Q12HR NG Last administered on 05/02/16 21:44; Start 04/08/16 at 12:00 Acetaminophen/ Hydrocodone Bitart 15 ml 15 ml Q3HR PRN PO pain1-9 Last administered on 05/02/16 21:44; Start 04/08/16 at 14:45 Potassium Chloride (KCl 20 Meq Premix Inj) 100 ml @ As Directed STK-MED ONCE .ROUTE ; Start 04/08/16 at 18:57; Stop 04/08/16 at 18:58; Status DC Magnesium Oxide (Mag-Ox) 400 mg Q12HR PEG Last administered on 04/12/16 22:14; Start 04/10/16 at 14:45; Stop 04/12/16 at 21:00; Status DC Potassium Chloride 40 meq 40 meq ONCE ONCE PEG ; Start 04/11/16 at 09:00; Stop 04/11/16 at 09:35; Status DC Magnesium Sulfate/ Dextrose (Magnesium Sulfate 1 Gm Premix) 100 ml @ 100 mls/ hr ONCE ONCE IV Last administered on 04/11/16 10:03; Start 04/11/16 at 09:00; Stop 04/11/16 at 09:59; Status DC Iohexol 95 ml 95 ml STK-MED ONCE IV Last administered on 04/11/16 14:39; Start 04/11/16 at 14:39; Stop 04/11/16 at 14:40; Status DC Sodium Chloride (NS 250 ml Inj) 250 ml @ 0 mls/hr ONCE@1800 ONCE IV ; Start 04/13/16 at 18:00; Stop 04/13/16 at 18:01; Status DC Granisetron HCl (Kytril Inj) 1 mg ONCE@1700 ONCE IV PUSH Last administered on 04/13/16 18:10; Start 04/13/16 at 17:00; Stop 04/13/16 at 17:01; Status DC Famotidine 20 mg 20 mg ONCE@1700 ONCE IV PUSH Last administered on 04/13/16 18 :09; Start 04/13/16 at 17:00; Stop 04/13/16 at 17:01; Status DC Dexamethasone Sodium Phosphate/ Sodium Chloride (Decadron Inj/NS Inj) 52.5 ml @ 210 mls/hr ONCE@1700 ONCE IV Last administered on 04/13/16 17:23; Start 04/13 at 17:00; Stop 04/13/16 at 17:14; Status DC Diphenhydramine HCl 25 mg 25 mg ONCE@1700 ONCE PO Last administered on 17:23; Start 04/13/16 at 17:00; Stop 04/13/16 at 17:01; Status DC Paclitaxel 69.75 mg/Sodium Chloride 261.625 ml @ 130.813 mls/hr ONCE@1800 ONCE IV Last administered on 04/13/16 19:37; Start 04/13/16 at 18:00; Stop at 19:59; Status DC Carboplatin/ Sodium Chloride (Paraplatin Inj/ NS 250 ml Inj) 250 ml @ 500 mls/ hr ONCE@21 ONCE IV Last administered on 04/13/16 21:59; Start 04/13/16 at 21:00 ; Stop 04/13/16 at 21:29; Status DC Hyoscyamine Sulfate (Levsin Inj) 0.25 mg ONCE ONCE IVP Last administered on 19:45; Start 04/14/16 at 19:45; Stop 04/14/16 at 19:46; Status DC Magnesium Oxide 400 mg 400 mg Q12HR GT Last administered on 04/17/16 08:57; Start 04/15/16 at 09:00; Stop 04/17/16 at 13:59; Status DC Magnesium Sulfate/ Dextrose (Magnesium Sulfate 1 Gm Premix) 100 ml @ 100 mls/ hr ONCE ONCE IV Last administered on 04/15/16 09:25; Start 04/15/16 at 09:00 ; Stop 04/15/16 at 09:59; Status DC Docusate Sodium (Colace Liq) 100 mg BID PRN GT CONSTIPATION; Start 04/15/16 at 12:15 Senna/Docusate Sodium (Clara-Colace) 2 tab BID G-TUBE Last administered on 08:19; Start 04/15/16 at 21:00 Lactulose (Lactulose Liq) 30 ml TID PRN G-TUBE CONSTIPATION; Start 04/15/16 at 12:15 Bisacodyl (Dulcolax Supp) 10 mg DAILY PRN MO CONSTIPATION; Start 04/15/16 at 12 :15 Magnesium Hydroxide 30 ml 30 ml Q6H PRN GT CONSTIPATION; Start 04/15/16 at 12: 15 Magnesium Sulfate/ Dextrose (Magnesium Sulfate 1 Gm Premix) 100 ml @ 100 mls/ hr ONCE ONCE IV Last administered on 04/15/16 13:00; Start 04/15/16 at 13:00 ; Stop 04/15/16 at 13:59; Status DC Potassium Chloride (KCl 40 Meq/30 ml Liq) 40 meq ONCE ONCE G-TUBE Last administered on 04/16/16 09:00; Start 04/16/16 at 09:00; Stop 04/16/16 at 09:02 ; Status DC Metoclopramide HCl 5 mg 5 mg ACHS G-TUBE Last administered on 04/19/16 11:30; Start 04/16/16 at 11:00; Stop 04/19/16 at 13:58; Status DC Magnesium Sulfate/ Dextrose (Magnesium Sulfate 1 Gm Premix) 100 ml @ 100 mls/ hr ONCE ONCE IV Last administered on 04/16/16 16:56; Start 04/16/16 at 14:45 ; Stop 04/16/16 at 15:44; Status DC Padimate O (Chapstick) 1 applic UNSCH PRN TOP DISCOMFORT Last administered on 00:01; Start 04/17/16 at 10:00 Magnesium Oxide 800 mg 800 mg Q12HR GT Last administered on 05/02/16 21:44; Start 04/17/16 at 21:00 Magnesium Sulfate/ Dextrose (Magnesium Sulfate 1 Gm Premix) 100 ml @ 100 mls/ hr Q1H IV Last administered on 04/17/16 18:34; Start 04/17/16 at 14:00; Stop 04/17/16 at 15:59; Status DC Potassium Chloride 20 meq 20 meq ONCE ONCE GT Last administered on 04/17/16 14:47; Start 04/17/16 at 14:00; Stop 04/17/16 at 14:04; Status DC Magnesium Sulfate/ Dextrose (Magnesium Sulfate 1 Gm Premix) 100 ml @ 100 mls/ hr Q1H IV ; Start 04/17/16 at 18:30; Stop 04/17/16 at 19:29; Status DC Potassium Chloride (KCl 40 Meq/30 ml Liq) 40 meq ONCE ONCE PO Last administered on 04/18/16 09:09; Start 04/18/16 at 08:00; Stop 04/18/16 at 08:01 ; Status DC Metoclopramide HCl 10 mg 10 mg ACHS G-TUBE Last administered on 05/03/16 06:25 ; Start 04/19/16 at 16:00 Metronidazole (Flagyl 500 Mg Inj) 100 ml @ 100 mls/hr Q6H IV Last administered on 05/01/16 14:30; Start 04/20/16 at 14:00; Stop 05/01/16 at 15:39 ; Status DC Potassium Chloride (KCl) 30 meq ONCE ONCE PO ; Start 04/20/16 at 13:45; Stop at 13:47; Status DC Granisetron HCl (Kytril Inj) 1 mg ONCE@1700 ONCE IV PUSH Last administered on 04/21/16 14:20; Start 04/21/16 at 12:00; Stop 04/21/16 at 12:01; Status DC Famotidine 20 mg 20 mg ONCE ONCE IV PUSH Last administered on 04/21/16 14:20 ; Start 04/21/16 at 12:00; Stop 04/21/16 at 12:01; Status DC Sodium Chloride 250 ml @ 0 mls/hr ONCE ONCE IV Last administered on 04/21/16 14:30; Start 04/21/16 at 12:00; Stop 04/21/16 at 12:01; Status DC Dexamethasone Sodium Phosphate/ Sodium Chloride (Decadron Inj/NS Inj) 52.5 ml @ 210 mls/hr ONCE ONCE IV Last administered on 04/21/16 14:20; Start at 12:00; Stop 04/21/16 at 12:14; Status DC Diphenhydramine HCl 25 mg 25 mg ONCE ONCE PO ; Start 04/21/16 at 12:00; Stop at 12:01; Status DC Paclitaxel 67.05 mg/Sodium Chloride 261.175 ml @ 261.625 mls/hr ONCE ONCE IV Last administered on 04/21/16 14:47; Start 04/21/16 at 13:00; Stop 04/21/16 at 13:59; Status DC Carboplatin/ Sodium Chloride (Paraplatin Inj/ NS 250 ml Inj) 250 ml @ 500 mls/ hr ONCE ONCE IV Last administered on 04/21/16 16:12; Start 04/21/16 at 14:00 ; Stop 04/21/16 at 14:29; Status DC Diphenhydramine HCl (Benadryl Liq) 25 mg ONCE ONCE PEG Last administered on 14:20; Start 04/21/16 at 15:00; Stop 04/21/16 at 15:01; Status DC Polyethylene Glycol 17 gm 17 gm DAILY G-TUBE Last administered on 04/27/16 10: 05; Start 04/22/16 at 09:00 Cefepime HCl 2000 mg/Sodium Chloride 100 ml @ 200 mls/hr Q12H IV Last administered on 05/01/16 10:39; Start 04/23/16 at 09:00; Stop 05/01/16 at 15:40 ; Status DC Sodium Chloride 1,000 ml @ 84 mls/hr [id number] IV Last administered on 20:24; Start 04/23/16 at 10:00; Stop 05/01/16 at 15:40; Status DC Potassium Phosphate/Sodium Chloride (Potassium Phosphate Inj/NS Inj) 155 ml @ 38.75 mls/ hr ONCE ONCE IV Last administered on 04/24/16 16:28; Start at 12:00; Stop 04/24/16 at 15:59; Status DC Potassium Phosphate (K-Phos) 500 mg Q12HR PO Last administered on 05/02/16 21: 45; Start 04/24/16 at 12:00 Lactobacillus Acidophilus 1 tab 1 tab TID PO Last administered on 05/02/16 17: 51; Start 04/24/16 at 18:00 Sodium Chloride (NS 250 ml Inj) 250 ml @ 15 mls/hr ONCE ONCE IV Last administered on 04/26/16 19:55; Start 04/26/16 at 13:00; Stop 04/27/16 at 05:39 ; Status DC Acetaminophen (Tylenol) 650 mg Q4H PRN PO SEE LABEL COMMENTS; Start 04/26/16 at 13:00; Stop 04/26/16 at 17:01; Status DC Diphenhydramine HCl (Benadryl) 25 mg Q4H PRN PO SEE LABEL COMMENTS; Start 04/26 at 13:00; Stop 04/26/16 at 17:01; Status DC Acetaminophen (Tylenol) 650 mg Q4H PRN PO SEE LABEL COMMENTS Last administered on 04/26/16 23:38; Start 04/26/16 at 18:45; Stop 04/27/16 at 08:00; Status DC Diphenhydramine HCl (Benadryl) 25 mg Q4H PRN PO SEE LABEL COMMENTS Last administered on 04/26/16 23:37; Start 04/26/16 at 18:45; Stop 04/27/16 at 08:00 ; Status DC Diphenhydramine HCl (Benadryl Inj) 50 mg STK-MED ONCE .ROUTE ; Start 04/26/16 at 18:39; Stop 04/26/16 at 18:40; Status DC Diphenhydramine HCl 25 mg 25 mg Q4H PRN IV PRIOR/DURING BLOOD TRANSFUSION; Start 04/26/16 at 19:00 Magnesium Sulfate/ Dextrose 100 ml @ 100 mls/hr ONCE ONCE IV Last administered on 04/27/16 12:46; Start 04/27/16 at 12:00; Stop 04/27/16 at 12:59 ; Status DC Paclitaxel 67.05 mg/Sodium Chloride 261.175 ml @ 261.175 mls/hr ONCE ONCE IV Last administered on 04/28/16 21:43; Start 04/28/16 at 17:00; Stop 04/28/16 at 17:59; Status DC Carboplatin/ Sodium Chloride (Paraplatin Inj/ NS 250 ml Inj) 250 ml @ 500 mls/ hr ONCE ONCE IV Last administered on 04/29/16 00:00; Start 04/28/16 at 18:00 ; Stop 04/28/16 at 18:29; Status DC Granisetron HCl (Kytril Inj) 1 mg ONCE@1600 ONCE IV Last administered on 19:58; Start 04/28/16 at 16:00; Stop 04/28/16 at 16:01; Status DC Famotidine 20 mg 20 mg ONCE@1600 ONCE IV Last administered on 04/28/16 20:13 ; Start 04/28/16 at 16:00; Stop 04/28/16 at 16:01; Status DC Dexamethasone Sodium Phosphate/ Sodium Chloride (Decadron Inj/NS Inj) 52.5 ml @ 210 mls/hr ONCE@1600 ONCE IV Last administered on 04/28/16 19:58; Start at 16:00; Stop 04/28/16 at 16:14; Status DC Diphenhydramine HCl 25 mg 25 mg ONCE@1600 ONCE PO Last administered on 20:18; Start 04/28/16 at 16:00; Stop 04/28/16 at 16:01; Status DC Sodium Chloride (NS 250 ml Inj) 250 ml @ 0 mls/hr ONCE IV Last administered on 04/28/16 21:43; Start 04/28/16 at 14:00; Stop 04/28/16 at 23:00; Status DC Fluconazole (Diflucan) 200 mg DAILY PO Last administered on 05/02/16 08:51; Start 05/01/16 at 15:45 Levofloxacin (Levaquin Liq) 500 mg DAILY TUBE Last administered on 05/02/16 08:28; Start 05/02/16 at 09:00 Metronidazole (Flagyl) 500 mg Q8HR PO Last administered on 05/03/16 06:25; Start 05/01/16 at 22:00 Multi-Ingredient Mouthwash/Gargle (Magic Mouthwash Adult Liq) 5 ml QID SWISH- SWAL Last administered on 05/02/16 21:45; Start 05/01/16 at 18:00 A/P Assessment and Plan squamous cell carcinoma of the oropharynx -CT of the face with very large heterogeneous soft tissue mass along the right side of the face with gross destruction involving most of the right mandible -CT of the chest and abdomen with possible lung/ liver mets. 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 continue with pain control. - general and facial surgery following for debulking next week. Stomatitis -due to chemo -patient has magic wash. -sepsis with possible right facial wound and central line as the source-central line discontinued one bottle of blood cultures with pseudomonas stutzeri - s/p IV Zosyn total 2 weeks end date April 20- repeated blood cultures 04/09 , 04/19, 04/21 and . Negative CXR. Negative UA. -Recurrent fever from infected tumor. Continue Empiric Flagyl April 20 and cefepime April 23. Follow up cultures negative to date. Leukocytosis -clinically stable. -continue to monitor. Sinus tachycardia - secondary to sepsis and fever as well as anemia. -TSH within normal limits Could also be from anxiety acute kidney injury/ hyponatremia due to dehydration - improved - will monitor Hypercalcemia - received a dose of aredia -resolved -will continue to monitor. anemia due to chemo - s/p PRBC transfusion- will monitor H/H- transfuse to keep Hb > 8 hypokalemia/hypomagnesemia/hypophosphatemia -replenish as needed. -severe malnutrition - s/p PEG placement-started on tube feeding -Patient with intolerance likely contributed by constipation. Continue Reglan and monitor response. -on bolus feeds. Constipation. -Monitor hemorrhoidal bleeding -DVT prophylaxis with lovenox. -DNR status palliative care following. d./w patient, nurse, and brother. Dispo: most likely long hospital stay due to severity of cancer. continue with chemo and possible debulking next week. Magui Marcus MD May 03, 2016 09:38
[2016-05-03] MEDS: MAGNESIUM OXIDE 400 MG TAB GT SCH ×2 (11:34→21:33)
[2016-05-03] MEDS: ACETAMINOPHEN 325MG/HYDROcodone 7.5MG/15ML UDC PO PRN (11:34)
[2016-05-03] MEDS: NYSTAT/DIPHENHY/LIDO MOUTHWASH (Adult) 120ML SWISH-SWAL SCH ×4 (11:34→21:33)
[2016-05-03] MEDS: POTASSIUM CL 40 MEQ/30 ML LIQ UDC NG SCH ×2 (11:35→21:32)
[2016-05-03] MEDS: DOCUSATE SODIUM 50 MG/SENNA 8.6 MG TAB G-TUBE SCH ×2 (11:35→21:00)
[2016-05-03] MEDS: SODIUM CHLORIDE 0.9% FLUSH 5 ML FLUSH IVF SCH ×2 (11:35→21:33)
[2016-05-03] MEDS: FLUCONAZOLE 200 MG TAB PO SCH (11:35)
[2016-05-03] MEDS: LACTOBACILLUS ACIDOPHILUS TAB PO SCH ×3 (11:35→17:45)
[2016-05-03] MEDS: POLYETHYLENE GLYCOL 17 GM PKG G-TUBE SCH (11:36)
[2016-05-03] MEDS: POTASSIUM PHOSPHATE MONOBASIC 500 MG TAB PO SCH ×2 (11:36→21:32)
[2016-05-03] MEDS: LEVOFLOXACIN ORAL SOLN 2500 MG/100 ML BOTTLE TUBE SCH (11:36)
[2016-05-03 11:45] VITALS: BP 128/63; PULSE 105; RESP 16; TEMP 97.8; O2SAT 98
[2016-05-03 17:30] VITALS: BP 95/54; PULSE 114; RESP 18; TEMP 100; O2SAT 98
[2016-05-03] MEDS: ENOXAPARIN SODIUM 30 MG/0.3 ML SYRINGE SQ SCH (17:45)
[2016-05-03 20:00] VITALS: BP 102/60; PULSE 119; RESP 18; TEMP 100.7; O2SAT 98
[2016-05-03] MEDS: ACETAMINOPHEN 325 MG TAB PO PRN (21:34)
[2016-05-04] VITALS (7 sets, daily range): BP systolic 87–136; BP diastolic 50–64; PULSE 99–123; RESP 16–20; TEMP 98.4–100.8; O2SAT 97–100
[2016-05-04] MEDS: FREE WATER G-TUBE SCH ×3 (06:00→16:47)
[2016-05-04] MEDS: metroNIDAZOLE 500 MG TAB PO SCH ×3 (06:30→21:16)
[2016-05-04] MEDS: METOCLOPRAMIDE HCL SYRUP 10 MG/10 ML UDC G-TUBE SCH ×4 (06:31→21:16)
[2016-05-04] MEDS: DOCUSATE SODIUM 50 MG/SENNA 8.6 MG TAB G-TUBE SCH ×2 (07:27→21:16)
[2016-05-04] MEDS: POLYETHYLENE GLYCOL 17 GM PKG G-TUBE SCH (07:27)
[2016-05-04] MEDS: FLUCONAZOLE 200 MG TAB PO SCH (08:37)
[2016-05-04] MEDS: NYSTAT/DIPHENHY/LIDO MOUTHWASH (Adult) 120ML SWISH-SWAL SCH ×4 (08:37→21:16)
[2016-05-04] MEDS: POTASSIUM PHOSPHATE MONOBASIC 500 MG TAB PO SCH ×2 (08:37→21:16)
[2016-05-04] MEDS: MAGNESIUM OXIDE 400 MG TAB GT SCH ×2 (08:37→21:16)
[2016-05-04] MEDS: LACTOBACILLUS ACIDOPHILUS TAB PO SCH ×3 (08:37→16:46)
[2016-05-04] MEDS: POTASSIUM CL 40 MEQ/30 ML LIQ UDC NG SCH (08:38)
[2016-05-04] MEDS: LEVOFLOXACIN ORAL SOLN 2500 MG/100 ML BOTTLE TUBE SCH (08:38)
[2016-05-04] MEDS: SODIUM CHLORIDE 0.9% FLUSH 5 ML FLUSH IVF SCH ×2 (08:49→21:17)
[2016-05-04] MEDS: ACETAMINOPHEN 325MG/HYDROcodone 7.5MG/15ML UDC PO PRN ×2 (08:49→21:52)
--- NOTE | 2016-05-04 10:30 | HHI.PR ---
Subjective Remarks fu oropharynx carcinoma, stomatitis, hypercalcemia, anemia, electrolyte imbalance, severe malnutrition c/o fever - had low grade fever with a tmax of 100.8 Patient states pain is controlled brother at bedside denies nausea or vomiting tolerating tube feedings Objective Vitals Vital Signs Date Time Temp Pulse Resp B/P Pulse Ox O2 Delivery O2 Flow Rate FiO2 05/04/16 08:00 100.8 115 16 136/64 99 05/04/16 04:00 98.4 99 16 100/59 100 05/04/16 00:00 98.8 100 17 95/64 99 05/03/16 20:00 100.7 119 18 102/60 98 05/03/16 17:30 100.0 114 18 95/54 98 05/03/16 11:45 97.8 105 16 128/63 98 I/O 05/03/16 05/03/16 05/03/16 05/04/16 05/04/16 05/04/16 07:00 15:00 23:00 07:00 15:00 23:00 Intake Total 680 ml Output Total 0 ml Balance 680 ml 0 ml Tube Feeding 480 ml Other 200 ml Tube Feeding Residual Discard 0 ml # Voids 1 2 2 Result Diagram: 05/03/16 0649 05/02/16 1055 Imaging Last Impressions Chest X-Ray 04/23/16 0000 Signed Impressions: Service Date/Time: Saturday, April 23, 2016 11:08 - CONCLUSION: No acute cardiopulmonary disease identified. Prabhu Jang MD Liver Ultrasound 04/12/16 0000 Signed Impressions: Service Date/Time: Tuesday, April 12, 2016 22:29 - CONCLUSION: 1. Solid indeterminate mass in the left lobe of the liver as well as a tiny cyst. An MRI of the abdomen with without contrast may be helpful for further assessment if felt clinically warranted. The possibility of a metastatic lesion is not excluded. 2. Cholelithiasis. 3. Bilateral pleural effusions are suspected sonographically. Chau Ward MD Chest CT 04/11/16 0000 Signed Impressions: Service Date/Time: Monday, April 11, 2016 14:09 - CONCLUSION: 1. Multiple small scattered noncalcified pulmonary nodules which are nonspecific but are of concern for early metastatic disease. 2. The known large tumor mass in the right side of the face and neck is partially visualized with destructive change involving the right side of the mandible. This extends into the right supraclavicular region. Please see soft tissue neck CT for further details. 3. Low attenuation lesion in the left lobe of the liver again noted. Holland Villegas MD Abdomen/Pelvis CT 04/11/16 0000 Signed Impressions: Service Date/Time: Monday, April 11, 2016 14:09 - CONCLUSION: 1. 1.4 cm low-attenuation lesion left lobe of the liver of concern for a metastasis. There is a smaller more cystic appearing structure in the right lobe. 2. The remainder of the study is unremarkable except for a PEG tube in the stomach. Holland Villegas MD Upper Extremity Ultrasound 04/08/16 0000 Signed Impressions: Service Date/Time: Friday, April 08, 2016 13:04 - CONCLUSION: No thrombus. Deshawn Michele MD Neck CT 04/02/16 0000 Signed Impressions: Service Date/Time: Saturday, April 02, 2016 11:54 - CONCLUSION: Very large heterogeneous soft tissue mass along the right side of the face with gross destruction involving most of the right mandible. The mass contains amorphous calcifications and appears to involve the right sternocleidomastoid muscle. The mass appears to extend into the oral cavity with diffuse enlargement of the right tonsillar pillar. Neoplastic disease in the primary consideration. Niall Corrales MD Multiplanar Reconstruction 04/02/16 0000 Signed Impressions: Service Date/Time: Saturday, April 02, 2016 11:54 - CONCLUSION: 3-D reconstructive images demonstrating destruction involving most the right side of the mandible. Niall Corrales MD Head CT 04/02/16 0000 Signed Impressions: Service Date/Time: Saturday, April 02, 2016 11:54 - CONCLUSION: 1. Unremarkable CT scan of the brain 2. Large abnormal soft tissue mass with calcifications along the right side of the face. Niall Corrales MD Objective Remarks Gen NAD HEENT: large ulcerating exophytic mass on the right side of the face. mouth is partial shut. Lips cracked. CV RRR. no r/m/g Resp CTA B/L Abd soft NDNT EXT: no edema Procedures central line placement PEG placement bone biopsy teeth extraction Medications and IVs Current Medications Medications (Trade) Dose Ordered Sig/Sara Route Start Time Stop Time Status Last Admin (Zofran Inj) 4 mg Q6H PRN IV PUSH 04/02/16 01:45 04/02/16 02:38 (NS Flush) 2 ml UNSCH PRN IVF 04/02/16 08:15 04/17/16 05:08 (NS Flush) 2 ml BID IVF 04/02/16 09:00 05/04/16 08:49 (Benadryl) 25 mg Q6H PRN PO 04/02/16 09:00 04/12/16 04:30 (Lovenox Inj) 30 mg Q24H SQ 04/04/16 15:30 05/03/16 17:45 (Free Water) VOLUME: 200 ML Q6HR G-TUBE 04/04/16 08:45 05/04/16 12:28 (Tylenol) 650 mg Q4H PRN PO 04/07/16 01:45 05/03/16 21:34 (Morphine Inj) 2 mg Q2HR PRN IV PUSH 04/08/16 09:00 (KCl 40 Meq/30 ml Liq) 40 meq Q12HR NG 04/08/16 12:00 05/04/16 08:38 (Hycet 325-7.5 Mg Liq) 15 ml Q3HR PRN PO 04/08/16 14:45 05/04/16 08:49 (Colace Liq) 100 mg BID PRN GT 04/15/16 12:15 (Clara-Colace) 2 tab BID G-TUBE 04/15/16 21:00 04/30/16 08:19 (Lactulose Liq) 30 ml TID PRN G-TUBE 04/15/16 12:15 (Dulcolax Supp) 10 mg DAILY PRN SC 04/15/16 12:15 (Milk Of Magnesia Liq) 30 ml Q6H PRN GT 04/15/16 12:15 (Chapstick) 1 applic UNSCH PRN TOP 04/17/16 10:00 04/18/16 00:01 (Mag-Ox) 800 mg Q12HR GT 04/17/16 21:00 05/04/16 08:37 (Reglan Liq) 10 mg ACHS G-TUBE 04/19/16 16:00 05/04/16 12:27 (Miralax) 17 gm DAILY G-TUBE 04/22/16 09:00 04/27/16 10:05 (K-Phos) 500 mg Q12HR PO 04/24/16 12:00 05/04/16 08:37 (Lactinex) 1 tab TID PO 04/24/16 18:00 05/04/16 12:27 (Benadryl Inj) 25 mg Q4H PRN IV 04/26/16 19:00 (Diflucan) 200 mg DAILY PO 05/01/16 15:45 05/04/16 08:37 (Levaquin Liq) 500 mg DAILY TUBE 05/02/16 09:00 05/04/16 08:38 (Flagyl) 500 mg Q8HR PO 05/01/16 22:00 05/04/16 06:30 (Magic Mouthwash Adult Liq) 5 ml QID SWISH-SWAL 05/01/16 18:00 05/04/16 08:37 A/P Problem List: (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 CT of the face showed very large heterogeneous soft tissue mass along the right side of the face with gross destruction involving most of the right mandible. The chest and abdomen with possible lung/liver metastasis. Status post bone biopsy, pathology reported differentiated squamous cell carcinoma. Patient undergoing chemotherapy and radiation therapy for palliation as per oncology recommendations. Continue pain control. General on facial surgery following for debulking next week. (2) Stomatitis and mucositis ICD Code: K12.1 Status: Acute Plan: Some otitis to chemotherapy. Patient has magic wash and oral care. (3) Sepsis ICD Code: A41.9 Status: Acute Plan: Patient initially with leukocytosis, fever and tachycardia. Possibly right facial wound and central line suspected to be the source. Central line was discontinued. 1 bottle blood cultures with Pseudomonas stutzeri. Patient was treated with IV Zosyn for total of 2 weeks N date 04/20/16. Repeat blood cultures on 26/07, 04/19, and 04/25 are negative. Patient currently on oral Flagyl, Levaquin oral and fluconazole. (4) Leukocytosis ICD Code: D72.829 Status: Resolved Plan: Leukocytosis likely secondary to sepsis as above. Leukocytosis resolved. Continue to monitor CBC with differential. (5) Sinus tachycardia ICD Code: R00.0 Status: Acute Plan: Likely secondary to sepsis and fevers as well as anemia. TSH within normal limits. Continue to monitor vital signs. (6) Hyponatremia ICD Code: E87.1 Status: Acute Plan: Patient with worsening sodium. Check urine and serum osmolality. Suspect SIADH. Decrease free water via PEG. Continue to monitor sodium. (7) Hypercalcemia of malignancy ICD Code: E83.52 Status: Acute Plan: Status post treatment with Aredia. Now resolved. Continue to monitor. (8) 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: Acute Plan: Status post PRBC transfusion. Hemoglobin stable at 8.9. Continue to monitor H&H. Transfuse to keep hemoglobin more than 7 . (9) Electrolyte abnormality ICD Code: E87.8 Status: Acute Plan: Patient with hypokalemia, hypomagnesemia and hypophosphatemia likely from nutritional deficiency due to decreased by mouth intake. Continue to monitor electrodes and replaced as needed. (10) Severe protein-calorie malnutrition ICD Code: E43 Status: Acute Plan: As evidenced by a more low albumin of 1.5, patient not eating much due to location of cancer. Registered dietitian consulting. Follow-up recommendations. Patient currently on Jevity 1.5 with 6 boluses daily. Patient also pured tray with a knife twice a day. (11) Constipation ICD Code: K59.00 Status: Resolved Plan: Seems to be stable. Continue senna for stress Colace, MiraLAX daily, lactulose when necessary. (12) DNR no code (do not resuscitate) ICD Code: Z66 Status: Acute Plan: Patient has DO NOT RESUSCITATE status (13) Palliative care patient ICD Code: Z51.5 Status: Acute Plan: Patient being followed by palliative care. Assessment and Plan GI prophylaxis: Lactinex, will add PPI. Prophylaxis: SCDs, continue Lovenox continuously. Discharge Planning Most likely a long hospital stay due to severity of cancer. Continue to monitor in the oncology floor, and Kelsey chemotherapy and possible debulking surgery next week. Nirav Preston MD May 04, 2016 10:30
[2016-05-04] MEDS: ENOXAPARIN SODIUM 30 MG/0.3 ML SYRINGE SQ SCH (15:36)
[2016-05-04 20:55] LABS: AUTOMATED NEUTROPHIL # 5.6 TH/MM3 (1.8-7.7); BASOPHIL % 0.2 % (0.0-2.0); EOSINOPHIL % 0.3 % (0.0-4.0); HEMATOCRIT 27.1 % (39.0-51.0); HEMO FLAGS DIFF FINAL; LYMPH % 3.1 % (9.0-44.0); LYMPHOCYTE # 0.2 TH/MM3 (1.0-4.8); MEAN CELL VOLUME 88.2 FL (80.0-100.0); MEAN CORPUSCULAR HEMOGLOBIN 29.9 PG (27.0-34.0); MEAN CORPUSCULAR HGB CONC 33.9 % (32.0-36.0); MONO % 8.9 % (0.0-8.0); NEUT % 87.5 % (16.0-70.0); PLATELET COUNT 334 TH/MM3 (150-450); RED BLOOD COUNT 3.08 MIL/MM3 (4.50-5.90); RED CELL DISTRIBUTION WIDTH 14.6 % (11.6-17.2); WHITE BLOOD COUNT 6.4 TH/MM3 (4.0-11.0)
[2016-05-04 21:19] LABS: ANION GAP 10 MEQ/L (5-15); AST (GOT) 18 U/L (15-37); BICARBONATE 27.5 MEQ/L (21.0-32.0); BLOOD UREA NITROGEN 11 MG/DL (7-18); CHLORIDE 92 MEQ/L (98-107); GLOMERULAR FILTRATION RATE 202 ML/MIN (>89); MAGNESIUM 1.6 MG/DL (1.5-2.5); SODIUM (NA) 129 MEQ/L (136-145)
[2016-05-04 21:22] LABS: ALKALINE PHOSPHATASE 144 U/L (45-117); ALT (GPT) 16 U/L (12-78); TOTAL BILIRUBIN ADULT 0.3 MG/DL (0.2-1.0)
[2016-05-04] MEDS: POTASSIUM CHLORIDE 25 MEQ EFFERVESCENT TAB NG SCH (22:55)
[2016-05-05] VITALS (7 sets, daily range): BP systolic 92–143; BP diastolic 52–79; PULSE 105–117; RESP 16–20; TEMP 96–99.8; O2SAT 95–99
[2016-05-05] MEDS: FREE WATER G-TUBE SCH ×4 (00:18→17:37)
[2016-05-05] MEDS: metroNIDAZOLE 500 MG TAB PO SCH ×3 (05:27→21:20)
[2016-05-05] MEDS: METOCLOPRAMIDE HCL SYRUP 10 MG/10 ML UDC G-TUBE SCH ×4 (05:27→21:19)
[2016-05-05 07:15] LABS: AUTOMATED NEUTROPHIL # 5.5 TH/MM3 (1.8-7.7); BASOPHIL % 0.3 % (0.0-2.0); EOSINOPHIL % 0.3 % (0.0-4.0); HEMO FLAGS DIFF FINAL; LYMPH % 2.1 % (9.0-44.0); LYMPHOCYTE # 0.1 TH/MM3 (1.0-4.8); MEAN CELL VOLUME 87.9 FL (80.0-100.0); MEAN CORPUSCULAR HEMOGLOBIN 29.7 PG (27.0-34.0); MEAN CORPUSCULAR HGB CONC 33.8 % (32.0-36.0); MONO % 9.5 % (0.0-8.0); NEUT % 87.8 % (16.0-70.0); PLATELET COUNT 274 TH/MM3 (150-450); RED BLOOD COUNT 2.85 MIL/MM3 (4.50-5.90); RED CELL DISTRIBUTION WIDTH 14.5 % (11.6-17.2); WHITE BLOOD COUNT 6.3 TH/MM3 (4.0-11.0)
[2016-05-05 07:40] LABS: ALKALINE PHOSPHATASE 127 U/L (45-117); ALT (GPT) 15 U/L (12-78); ANION GAP 7 MEQ/L (5-15); AST (GOT) 18 U/L (15-37); BICARBONATE 28.8 MEQ/L (21.0-32.0); BLOOD UREA NITROGEN 12 MG/DL (7-18); CHLORIDE 94 MEQ/L (98-107); GLOMERULAR FILTRATION RATE 197 ML/MIN (>89); MAGNESIUM 1.6 MG/DL (1.5-2.5); POTASSIUM 4.2 MEQ/L (3.5-5.1); SODIUM (NA) 130 MEQ/L (136-145); TOTAL BILIRUBIN ADULT 0.3 MG/DL (0.2-1.0)
[2016-05-05] MEDS: POTASSIUM CHLORIDE 25 MEQ EFFERVESCENT TAB NG SCH ×2 (08:40→21:19)
[2016-05-05] MEDS: DOCUSATE SODIUM 50 MG/SENNA 8.6 MG TAB G-TUBE SCH ×2 (08:40→21:20)
[2016-05-05] MEDS: FLUCONAZOLE 200 MG TAB PO SCH (08:40)
[2016-05-05] MEDS: POTASSIUM PHOSPHATE MONOBASIC 500 MG TAB PO SCH ×2 (08:40→21:20)
[2016-05-05] MEDS: MAGNESIUM OXIDE 400 MG TAB GT SCH ×2 (08:40→21:20)
[2016-05-05] MEDS: LACTOBACILLUS ACIDOPHILUS TAB PO SCH ×3 (08:40→16:42)
[2016-05-05] MEDS: LEVOFLOXACIN ORAL SOLN 2500 MG/100 ML BOTTLE TUBE SCH (08:41)
[2016-05-05] MEDS: POLYETHYLENE GLYCOL 17 GM PKG G-TUBE SCH (08:41)
[2016-05-05] MEDS: SODIUM CHLORIDE 0.9% FLUSH 5 ML FLUSH IVF SCH ×2 (08:42→21:20)
[2016-05-05] MEDS: NYSTAT/DIPHENHY/LIDO MOUTHWASH (Adult) 120ML SWISH-SWAL SCH ×4 (08:52→21:17)
[2016-05-05] MEDS ORDERED: GRANISETRON HCL 1 MG/ML VIAL IV SCH (10:00)
[2016-05-05] MEDS ORDERED: FAMOTIDINE 20 MG/2 ML VIAL IV PUSH SCH (10:00)
[2016-05-05] MEDS ORDERED: diphenhydrAMINE HCL 25 MG CAP PO SCH (10:00)
[2016-05-05] MEDS ORDERED: SODIUM CHLOR 0.9% 250 ML INJ 250 ML IV SCH (10:00)
[2016-05-05] MEDS ORDERED: DEXAMETHASONE INJ 10 MG in SODIUM CHLORIDE 0.9% INJ 50 ML IV SCH (10:00)
--- NOTE | 2016-05-05 10:52 | HHI.PR ---
Subjective Subjective Notes Resting in bed Gives thumbs up Getting ready to go to radiation Objective Vitals/I&O Vital Signs Date Time Temp Pulse Resp B/P Pulse Ox O2 Delivery O2 Flow Rate FiO2 05/05/16 08:00 98.5 109 20 101/53 98 Labs Laboratory Tests Test 05/04/16 05/05/16 20:32 06:18 White Blood Count 6.4 6.3 Red Blood Count 3.08 2.85 Hemoglobin 9.2 8.5 Hematocrit 27.1 25.0 Mean Corpuscular Volume 88.2 87.9 Mean Corpuscular Hemoglobin 29.9 29.7 Mean Corpuscular Hemoglobin 33.9 33.8 Concent Red Cell Distribution Width 14.6 14.5 Platelet Count 334 274 Mean Platelet Volume 6.7 6.7 Neutrophils (%) (Auto) 87.5 87.8 Lymphocytes (%) (Auto) 3.1 2.1 Monocytes (%) (Auto) 8.9 9.5 Eosinophils (%) (Auto) 0.3 0.3 Basophils (%) (Auto) 0.2 0.3 Neutrophils # (Auto) 5.6 5.5 Lymphocytes # (Auto) 0.2 0.1 Monocytes # (Auto) 0.6 0.6 Eosinophils # (Auto) 0.0 0.0 Basophils # (Auto) 0.0 0.0 CBC Comment DIFF FINAL DIFF FINAL Differential Comment Sodium Level 129 130 Potassium Level 4.0 4.2 Chloride Level 92 94 Carbon Dioxide Level 27.5 28.8 Anion Gap 10 7 Blood Urea Nitrogen 11 12 Creatinine 0.47 0.48 Estimat Glomerular Filtration 202 197 Rate Random Glucose 115 103 Calcium Level 8.1 8.1 Phosphorus Level 2.4 2.6 Magnesium Level 1.6 1.6 Total Bilirubin 0.3 0.3 Aspartate Amino Transf 18 18 (AST/SGOT) Alanine Aminotransferase 16 15 (ALT/SGPT) Alkaline Phosphatase 144 127 Total Protein 6.2 5.7 Albumin 1.6 1.5 Date/Time Procedure Status Source Growth 05/04/16 00:05 Aerobic Blood Culture Received Blood Other Pending 05/04/16 00:05 Anaerobic Blood Culture Received Blood Other Pending 04/30/16 20:23 Aerobic Blood Culture - Preliminary Resulted Blood Peripheral NO GROWTH IN 4 DAYS 04/30/16 20:23 Anaerobic Blood Culture - Preliminary Resulted Blood Peripheral NO GROWTH IN 4 DAYS Cardiovascular: Regular Lungs: Clear Abdomen: Non-distended, Non-tender, Other (PEG in place ) Extremities: No edema Narrative Exam Face: large RIGHT sided facial malignancy A/P Assessment and Plan 35 year old male with large oropharyngeal cancer -PO Diflucan -Change Levaquin and Flagyl -OMFS following for timing of debulking tumor in OR -s/p PEG placement -s/p biopsy of mass -Continue chemotherapy and radiation -Tolerating bolus feedings I CERTIFY AND ATTEST THAT I PERSONALLY EXAMINED THIS PATIENT. MS AVILES DOCUMENTED OUR VISIT AND ENTERED ORDERS IN THE EMR UNDER MY DIRECT SUPERVISION. I DISCUSSED THE CARE PLAN WITH THE NURSING STAFF AND FAMILY (IF PRESENT). Brittnee Meraz MD, FACS May 05, 2016 10:52 Juan Oseguera MD May 11, 2016 11:46
[2016-05-05] MEDS ORDERED: PACLITAXEL IV ONE (11:00)
[2016-05-05] MEDS ORDERED: SODIUM CHLOR 0.9% IV ONE (11:00)
[2016-05-05] MEDS: SODIUM CHLOR 0.9% IV ONE ×2 (12:00→20:14)
[2016-05-05] MEDS: CARBOPLATIN IV ONE ×2 (12:00→20:14)
--- NOTE | 2016-05-05 14:00 | PD.ONC.PN ---
Subjective Subjective Remarks Afebrile overnight. patient resting comfortably. Per nurse, she has noticed some improvement in the amount of drainage since they have started using new wound care bandages. Objective Data Date Time Temp Pulse Resp B/P Pulse Ox O2 Delivery O2 Flow Rate FiO2 05/05/16 12:00 99.6 111 16 125/57 98 05/05/16 08:00 98.5 109 20 101/53 98 05/05/16 06:11 97.6 117 16 143/79 96 05/05/16 00:00 96.0 108 16 92/52 97 05/04/16 21:55 90/50 05/04/16 20:00 99.3 123 16 87/50 97 05/04/16 16:45 100.0 112 20 130/62 99 Result Diagram: 05/05/16 0618 05/05/1618 Laboratory Results Laboratory Tests Test 05/04/16 05/05/16 20:32 06:18 White Blood Count 6.4 TH/MM3 6.3 TH/MM3 Red Blood Count 3.08 MIL/MM3 2.85 MIL/MM3 Hemoglobin 9.2 GM/DL 8.5 GM/DL Hematocrit 27.1 % 25.0 % Mean Corpuscular Volume 88.2 FL 87.9 FL Mean Corpuscular Hemoglobin 29.9 PG 29.7 PG Mean Corpuscular Hemoglobin 33.9 % 33.8 % Concent Red Cell Distribution Width 14.6 % 14.5 % Platelet Count 334 TH/MM3 274 TH/MM3 Mean Platelet Volume 6.7 FL 6.7 FL Neutrophils (%) (Auto) 87.5 % 87.8 % Lymphocytes (%) (Auto) 3.1 % 2.1 % Monocytes (%) (Auto) 8.9 % 9.5 % Eosinophils (%) (Auto) 0.3 % 0.3 % Basophils (%) (Auto) 0.2 % 0.3 % Neutrophils # (Auto) 5.6 TH/MM3 5.5 TH/MM3 Lymphocytes # (Auto) 0.2 TH/MM3 0.1 TH/MM3 Monocytes # (Auto) 0.6 TH/MM3 0.6 TH/MM3 Eosinophils # (Auto) 0.0 TH/MM3 0.0 TH/MM3 Basophils # (Auto) 0.0 TH/MM3 0.0 TH/MM3 CBC Comment DIFF FINAL DIFF FINAL Differential Comment Sodium Level 129 MEQ/L 130 MEQ/L Potassium Level 4.0 MEQ/L 4.2 MEQ/L Chloride Level 92 MEQ/L 94 MEQ/L Carbon Dioxide Level 27.5 MEQ/L 28.8 MEQ/L Anion Gap 10 MEQ/L 7 MEQ/L Blood Urea Nitrogen 11 MG/DL 12 MG/DL Creatinine 0.47 MG/DL 0.48 MG/DL Estimat Glomerular Filtration 202 ML/MIN 197 ML/MIN Rate Random Glucose 115 MG/DL 103 MG/DL Calcium Level 8.1 MG/DL 8.1 MG/DL Phosphorus Level 2.4 MG/DL 2.6 MG/DL Magnesium Level 1.6 MG/DL 1.6 MG/DL Total Bilirubin 0.3 MG/DL 0.3 MG/DL Aspartate Amino Transf 18 U/L 18 U/L (AST/SGOT) Alanine Aminotransferase 16 U/L 15 U/L (ALT/SGPT) Alkaline Phosphatase 144 U/L 127 U/L Total Protein 6.2 GM/DL 5.7 GM/DL Albumin 1.6 GM/DL 1.5 GM/DL Culture Results Microbiology Date/Time Procedure Status Source Growth 05/04/16 00:00 Aerobic Blood Culture - Preliminary Resulted Blood Other NO GROWTH IN 1 DAY 05/04/16 00:00 Anaerobic Blood Culture - Preliminary Resulted Blood Other NO GROWTH IN 1 DAY 05/04/16 00:05 Aerobic Blood Culture - Preliminary Resulted Blood Other NO GROWTH IN 1 DAY 05/04/16 00:05 Anaerobic Blood Culture - Preliminary Resulted Blood Other NO GROWTH IN 1 DAY Administered Medications Medications (Trade) Dose Ordered Sig/Sara Route PRN Reason Start Time Stop Time Status Last Admin Dose Admin Ondansetron HCl (Zofran Inj) 4 mg Q6H PRN IV PUSH NAUSEA 04/02/16 01:45 04/02/16 02:38 IV Flush (NS Flush) 2 ml UNSCH PRN IVF FLUSH AFTER USING IV ACCESS 04/02/16 08:15 04/17/16 05:08 IV Flush (NS Flush) 2 ml BID IVF 04/02/16 09:00 05/05/16 08:42 Diphenhydramine HCl (Benadryl) 25 mg Q6H PRN PO ITCHING 04/02/16 09:00 04/12/16 04:30 Enoxaparin Sodium (Lovenox Inj) 30 mg Q24H SQ 04/04/16 15:30 05/04/16 15:36 Water (Free Water) VOLUME: 200 ML Q6HR G-TUBE 04/04/16 08:45 05/05/16 11:49 Acetaminophen (Tylenol) 650 mg Q4H PRN PO FEVER OVER 101.0 04/07/16 01:45 05/03/16 21:34 Acetaminophen/ Hydrocodone Bitart (Hycet 325-7.5 Mg Liq) 15 ml Q3HR PRN PO pain1-9 04/08/16 14:45 05/04/16 21:52 Senna/Docusate Sodium (Clara-Colace) 2 tab BID G-TUBE 04/15/16 21:00 05/05/16 08:40 Padimate O (Chapstick) 1 applic UNSCH PRN TOP DISCOMFORT 04/17/16 10:00 04/18/16 00:01 Magnesium Oxide (Mag-Ox) 800 mg Q12HR GT 04/17/16 21:00 05/05/16 08:40 Metoclopramide HCl (Reglan Liq) 10 mg ACHS G-TUBE 04/19/16 16:00 05/05/16 11:49 Polyethylene Glycol (Miralax) 17 gm DAILY G-TUBE 04/22/16 09:00 04/27/16 10:05 Potassium Phosphate (K-Phos) 500 mg Q12HR PO 04/24/16 12:00 05/05/16 08:40 Lactobacillus Acidophilus (Lactinex) 1 tab TID PO 04/24/16 18:00 05/05/16 11:50 Fluconazole (Diflucan) 200 mg DAILY PO 05/01/16 15:45 05/05/16 08:40 Levofloxacin (Levaquin Liq) 500 mg DAILY TUBE 05/02/16 09:00 05/05/16 08:41 Metronidazole (Flagyl) 500 mg Q8HR PO 05/01/16 22:00 05/05/16 05:27 Multi-Ingredient Mouthwash/Gargle (Magic Mouthwash Adult Liq) 5 ml QID SWISH-SWAL 05/01/16 18:00 05/04/16 21:16 Potassium Bicarb/ Potassium Chloride (K-Lyte Cl Eff) 40 meq Q12HR NG 05/04/16 22:00 05/05/16 08:40 Objective Remarks GENERAL: Young man, sitting up in bed resting. SKIN: Warm and dry. HEAD: Normocephalic. large tumor right face, with opening in center extending into oral cavity EYES: No injection or drainage. NECK: Supple, trachea midline. CARDIOVASCULAR: Regular rate and rhythm RESPIRATORY: Breath sounds equal bilaterally. No accessory muscle use. GASTROINTESTINAL: Abdomen soft, non-tender, nondistended. EXTREMITIES: No cyanosis NEUROLOGICAL: No obvious focal deficit. Awake and alert. Assessment/Plan Assessment 35y/o male with invasive squamous cell carcinoma receiving weekly carbo/taxol and BID XRT. 04/12/16--XRT started; twice daily. 04/13/16: weekly carbo/taxol dose 1 given 04/21/16: weekly carbo/taxol dose 2 given 04/28/16: weekly carbo/taxol dose 3 given 05/05/16:weekly carbo/taxol dose 4 given Plan 1. give weekly carbo/taxol today 2. tumor continues to shrink, with wound continuing to enlarge. Wound care is cotter here and will consult wound care to see if they have any further suggestions to help floor nurses give patient the best wound care possible. Attending Statement The exam, history, and the medical decision-making described in the above note were completed with the assistance of the mid-level provider. I reviewed and agree with the findings presented. I attest that I had a [id number] encounter with the patient on the same day, and personally performed and documented my assessment and findings in the medical record. there remain a gaping hole with partial regression of the tumor. I spoke with nursing staff and showed them how this communicates with oral cavity. not much tissue to debride and will need to keep area clean. will continue chemo and xrt. Sirisha Cotton May 05, 2016 13:59 Yovany Lezama MD May 05, 2016 20:04
--- NOTE | 2016-05-05 14:52 | HHI.PR ---
Subjective Remarks Oropharynx Carcinoma Stomatitis, Hypercalcemia, Anemia, electrolyte Imbalance, Severe Malnutrition patient in status post Radiation therapy and receiving Chemotherapy at this time. as per donor services specialist with Diagnosis of Invasive Squamous Cell Carcinoma receiving weekly Carbo/Taxol and BID XRT. receiving Chemotherapy today Objective Vital Signs Date Time Temp Pulse Resp B/P Pulse Ox O2 Delivery O2 Flow Rate FiO2 05/05/16 12:00 99.6 111 16 125/57 98 05/05/16 08:00 98.5 109 20 101/53 98 05/05/16 06:11 97.6 117 16 143/79 96 05/05/16 00:00 96.0 108 16 92/52 97 05/04/16 21:55 90/50 05/04/16 20:00 99.3 123 16 87/50 97 05/04/16 16:45 100.0 112 20 130/62 99 I/O 05/04/16 05/04/16 05/04/16 05/05/16 05/05/16 05/05/16 07:00 15:00 23:00 07:00 15:00 23:00 Intake Total 1120 ml 0 ml Balance 1120 ml 0 ml Intake Oral 0 ml 0 ml Tube Feeding 720 ml Other 400 ml # Voids 2 6 2 # Bowel Movements 0 0 Result Diagram: 05/05/16 0618 05/05/16 0618 Imaging Last Impressions Chest X-Ray 04/23/16 0000 Signed Impressions: Service Date/Time: Saturday, April 23, 2016 11:08 - CONCLUSION: No acute cardiopulmonary disease identified. Prabhu Jang MD Liver Ultrasound 04/12/16 0000 Signed Impressions: Service Date/Time: Tuesday, April 12, 2016 22:29 - CONCLUSION: 1. Solid indeterminate mass in the left lobe of the liver as well as a tiny cyst. An MRI of the abdomen with without contrast may be helpful for further assessment if felt clinically warranted. The possibility of a metastatic lesion is not excluded. 2. Cholelithiasis. 3. Bilateral pleural effusions are suspected sonographically. Chau Ward MD Chest CT 04/11/16 0000 Signed Impressions: Service Date/Time: Monday, April 11, 2016 14:09 - CONCLUSION: 1. Multiple small scattered noncalcified pulmonary nodules which are nonspecific but are of concern for early metastatic disease. 2. The known large tumor mass in the right side of the face and neck is partially visualized with destructive change involving the right side of the mandible. This extends into the right supraclavicular region. Please see soft tissue neck CT for further details. 3. Low attenuation lesion in the left lobe of the liver again noted. Holland Villegas MD Abdomen/Pelvis CT 04/11/16 0000 Signed Impressions: Service Date/Time: Monday, April 11, 2016 14:09 - CONCLUSION: 1. 1.4 cm low-attenuation lesion left lobe of the liver of concern for a metastasis. There is a smaller more cystic appearing structure in the right lobe. 2. The remainder of the study is unremarkable except for a PEG tube in the stomach. Holland Villegas MD Upper Extremity Ultrasound 04/08/16 0000 Signed Impressions: Service Date/Time: Friday, April 08, 2016 13:04 - CONCLUSION: No thrombus. Deshawn Michele MD Neck CT 04/02/16 0000 Signed Impressions: Service Date/Time: Saturday, April 02, 2016 11:54 - CONCLUSION: Very large heterogeneous soft tissue mass along the right side of the face with gross destruction involving most of the right mandible. The mass contains amorphous calcifications and appears to involve the right sternocleidomastoid muscle. The mass appears to extend into the oral cavity with diffuse enlargement of the right tonsillar pillar. Neoplastic disease in the primary consideration. Niall Corrales MD Multiplanar Reconstruction 04/02/16 0000 Signed Impressions: Service Date/Time: Saturday, April 02, 2016 11:54 - CONCLUSION: 3-D reconstructive images demonstrating destruction involving most the right side of the mandible. Niall Corrales MD Head CT 04/02/16 0000 Signed Impressions: Service Date/Time: Saturday, April 02, 2016 11:54 - CONCLUSION: 1. Unremarkable CT scan of the brain 2. Large abnormal soft tissue mass with calcifications along the right side of the face. Niall Corrales MD Procedures central line placement PEG placement bone biopsy teeth extraction Other Results Laboratory Tests Test 05/01/16 05/05/16 05:20 06:18 Prothrombin Time 14.6 SEC Prothromb Time International 1.3 RATIO Ratio Triglycerides Level 105 MG/DL White Blood Count 6.3 TH/MM3 Red Blood Count 2.85 MIL/MM3 Hemoglobin 8.5 GM/DL Hematocrit 25.0 % Mean Corpuscular Volume 87.9 FL Mean Corpuscular Hemoglobin 29.7 PG Mean Corpuscular Hemoglobin 33.8 % Concent Red Cell Distribution Width 14.5 % Platelet Count 274 TH/MM3 Mean Platelet Volume 6.7 FL Neutrophils (%) (Auto) 87.8 % Lymphocytes (%) (Auto) 2.1 % Monocytes (%) (Auto) 9.5 % Eosinophils (%) (Auto) 0.3 % Basophils (%) (Auto) 0.3 % Neutrophils # (Auto) 5.5 TH/MM3 Lymphocytes # (Auto) 0.1 TH/MM3 Monocytes # (Auto) 0.6 TH/MM3 Eosinophils # (Auto) 0.0 TH/MM3 Basophils # (Auto) 0.0 TH/MM3 CBC Comment DIFF FINAL Differential Comment Sodium Level 130 MEQ/L Potassium Level 4.2 MEQ/L Chloride Level 94 MEQ/L Carbon Dioxide Level 28.8 MEQ/L Anion Gap 7 MEQ/L Blood Urea Nitrogen 12 MG/DL Creatinine 0.48 MG/DL Estimat Glomerular Filtration 197 ML/MIN Rate Random Glucose 103 MG/DL Calcium Level 8.1 MG/DL Phosphorus Level 2.6 MG/DL Magnesium Level 1.6 MG/DL Total Bilirubin 0.3 MG/DL Aspartate Amino Transf 18 U/L (AST/SGOT) Alanine Aminotransferase 15 U/L (ALT/SGPT) Alkaline Phosphatase 127 U/L Total Protein 5.7 GM/DL Albumin 1.5 GM/DL Objective Remarks Gen: No acute Distress. HEENT: large ulcerating exophytic mass on the right side of the face. mouth is partial shut. Lips cracked. purulent tissue in his mouth. CV RRR. no r/m/g Resp CTA B/L Abd soft NDNT EXT: no edema Medications and IVs Current Medications Medications (Trade) Dose Ordered Sig/Sara Route Start Time Stop Time Status Last Admin (Zofran Inj) 4 mg Q6H PRN IV PUSH 04/02/16 01:45 04/02/16 02:38 (NS Flush) 2 ml UNSCH PRN IVF 04/02/16 08:15 04/17/16 05:08 (NS Flush) 2 ml BID IVF 04/02/16 09:00 05/05/16 08:42 (Benadryl) 25 mg Q6H PRN PO 04/02/16 09:00 04/12/16 04:30 (Lovenox Inj) 30 mg Q24H SQ 04/04/16 15:30 05/04/16 15:36 (Free Water) VOLUME: 200 ML Q6HR G-TUBE 04/04/16 08:45 05/05/16 11:49 (Tylenol) 650 mg Q4H PRN PO 04/07/16 01:45 05/03/16 21:34 (Morphine Inj) 2 mg Q2HR PRN IV PUSH 04/08/16 09:00 (Hycet 325-7.5 Mg Liq) 15 ml Q3HR PRN PO 04/08/16 14:45 05/04/16 21:52 (Colace Liq) 100 mg BID PRN GT 04/15/16 12:15 (Clara-Colace) 2 tab BID G-TUBE 04/15/16 21:00 05/05/16 08:40 (Lactulose Liq) 30 ml TID PRN G-TUBE 04/15/16 12:15 (Dulcolax Supp) 10 mg DAILY PRN [place] 04/15/16 12:15 (Milk Of Magnesia Liq) 30 ml Q6H PRN GT 04/15/16 12:15 (Chapstick) 1 applic UNSCH PRN TOP 04/17/16 10:00 04/18/16 00:01 (Mag-Ox) 800 mg Q12HR GT 04/17/16 21:00 05/05/16 08:40 (Reglan Liq) 10 mg ACHS G-TUBE 04/19/16 16:00 05/05/16 11:49 (Miralax) 17 gm DAILY G-TUBE 04/22/16 09:00 04/27/16 10:05 (K-Phos) 500 mg Q12HR PO 04/24/16 12:00 05/05/16 08:40 (Lactinex) 1 tab TID PO 04/24/16 18:00 05/05/16 11:50 (Benadryl Inj) 25 mg Q4H PRN IV 04/26/16 19:00 (Diflucan) 200 mg DAILY PO 05/01/16 15:45 05/05/16 08:40 (Levaquin Liq) 500 mg DAILY TUBE 05/02/16 09:00 05/05/16 08:41 (Flagyl) 500 mg Q8HR PO 05/01/16 22:00 05/05/16 05:27 (Magic Mouthwash Adult Liq) 5 ml QID SWISH-SWAL 05/01/16 18:00 05/04/16 21:16 Potassium Bicarb/ Potassium Chloride 40 meq 40 meq Q12HR NG 05/04/16 22:00 05/05/16 08:40 (NS 250 ml Inj) 250 ml @ 0 mls/hr UNSCH IV 05/05/16 10:00 05/05/16 23:00 A/P Assessment and Plan 1. Squamous Cell Carcinoma of Oropharynx, CT of the face showed very large heterogeneous soft tissue mass along the right side of the face with gross destruction involving most of the right mandible. The chest and abdomen with possible lung/liver metastasis. Status post bone biopsy, pathology reported differentiated squamous cell carcinoma. Patient undergoing chemotherapy Carbo/Taxol and BID Radiation Therapy. medical insurance coding specialist following. Continue pain control. General on facial surgery following for debulking next week. 2. Stomatitis and Mucositis, some otitis on Chemotherapy, continue Magic Mouth Wash 3. Sepsis one bottle of blood cultures, growing Pseudomonas Stutzeri. on Zosyn for 2 weeks Possible right facial wound and central line suspected source. Central line discontinued. 4. 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 5. Hypercalcemia of malignancy, status post treatment with Aredia. resolved 6. Anemia secondary to Chemotherapy, Status post Blood transfusion. 7. Electrolyte derangement replaced and following. 8. Severe Protein Calorie Malnutrition, status post PEG placement tube feedings 9. Constipation continue Colace, MiraLAX and Lactulose DVT prophylaxis with Lovenox. Discharge Planning Not yet cleared by donor services specialist for discharge. Richie Cosby MD May 05, 2016 14:52
[2016-05-05] MEDS: ENOXAPARIN SODIUM 30 MG/0.3 ML SYRINGE SQ SCH (15:00)
[2016-05-05] MEDS: ACETAMINOPHEN 325MG/HYDROcodone 7.5MG/15ML UDC PO PRN (23:08)
[2016-05-06] VITALS: BP 126/56; PULSE 97; RESP 16; TEMP 97.8; O2SAT 97
[2016-05-06] MEDS: FREE WATER G-TUBE SCH ×5 (00:41→22:32)
[2016-05-06 04:00] VITALS: BP 106/58; PULSE 98; RESP 16; TEMP 95.4; O2SAT 98
[2016-05-06] MEDS: metroNIDAZOLE 500 MG TAB PO SCH ×3 (05:14→21:15)
[2016-05-06] MEDS: METOCLOPRAMIDE HCL SYRUP 10 MG/10 ML UDC G-TUBE SCH ×4 (05:14→21:15)
[2016-05-06 08:00] VITALS: BP 85/52; PULSE 90; RESP 16; TEMP 95.7; O2SAT 97
[2016-05-06] MEDS ORDERED: GRANISETRON HCL 1 MG/ML VIAL IV SCH (08:30)
[2016-05-06] MEDS ORDERED: diphenhydrAMINE HCL 25 MG CAP PO SCH (08:45)
[2016-05-06] MEDS ORDERED: FAMOTIDINE 20 MG/2 ML VIAL IV PUSH SCH (08:45)
[2016-05-06] MEDS ORDERED: DEXAMETHASONE INJ 10 MG in SODIUM CHLORIDE 0.9% INJ 50 ML IV SCH (08:45)
[2016-05-06] MEDS: POTASSIUM CHLORIDE 25 MEQ EFFERVESCENT TAB NG SCH ×2 (09:42→21:15)
[2016-05-06] MEDS: DOCUSATE SODIUM 50 MG/SENNA 8.6 MG TAB G-TUBE SCH ×2 (09:42→21:15)
[2016-05-06] MEDS: MAGNESIUM OXIDE 400 MG TAB GT SCH ×2 (09:42→21:00)
[2016-05-06] MEDS: FLUCONAZOLE 200 MG TAB PO SCH (09:42)
[2016-05-06] MEDS: LACTOBACILLUS ACIDOPHILUS TAB PO SCH ×3 (09:43→17:15)
[2016-05-06] MEDS: POTASSIUM PHOSPHATE MONOBASIC 500 MG TAB PO SCH ×2 (09:43→21:00)
[2016-05-06] MEDS: SODIUM CHLORIDE 0.9% FLUSH 5 ML FLUSH IVF SCH ×2 (09:43→21:00)
[2016-05-06] MEDS: LEVOFLOXACIN ORAL SOLN 2500 MG/100 ML BOTTLE TUBE SCH (09:43)
[2016-05-06] MEDS: POLYETHYLENE GLYCOL 17 GM PKG G-TUBE SCH (09:43)
[2016-05-06] MEDS ORDERED: CARBOPLATIN IV ONE (10:00)
[2016-05-06] MEDS ORDERED: SODIUM CHLOR 0.9% IV ONE (10:00)
[2016-05-06] MEDS: NYSTAT/DIPHENHY/LIDO MOUTHWASH (Adult) 120ML SWISH-SWAL SCH ×4 (10:15→21:00)
[2016-05-06 12:25] VITALS: BP 84/53; PULSE 88; RESP 20; TEMP 96.2; O2SAT 97
[2016-05-06 16:00] VITALS: BP 85/52; PULSE 96; RESP 20; TEMP 97.3; O2SAT 98
--- NOTE | 2016-05-06 17:00 | HHI.PR ---
Subjective Remarks Oropharynx Carcinoma Stomatitis, Hypercalcemia, Anemia, electrolyte Imbalance, Severe Malnutrition Patient stable in his bedroom, was needed to stop his Chemotherapy yesterday and receiving Chemotherapy today, he has Diagnosis of Invasive Squamous Cell Carcinoma receiving weekly Carbo/Taxol and BID XRT. discussed with patient and with his Brother Mr. Yeboah and with nurse Miss Joshi. Objective Vital Signs Date Time Temp Pulse Resp B/P Pulse Ox O2 Delivery O2 Flow Rate FiO2 05/06/16 12:25 96.2 88 20 84/53 97 05/06/16 08:00 95.7 90 16 85/52 97 05/06/16 04:00 95.4 98 16 106/58 98 05/06/16 00:00 97.8 97 16 126/56 97 05/05/16 20:00 97.3 105 16 106/59 97 05/05/16 18:38 97.9 114 18 94/55 95 I/O 05/05/16 05/05/16 05/05/16 05/06/16 05/06/16 05/06/16 07:00 15:00 23:00 07:00 15:00 23:00 Intake Total 0 ml 1400 ml 0 ml Balance 0 ml 1400 ml 0 ml Intake Oral 0 ml 100 ml 0 ml Tube Feeding 900 ml Other 400 ml # Voids 2 6 1 # Bowel Movements 0 Result Diagram: 05/05/16 0618 05/05/16 0618 Imaging Last Impressions Chest X-Ray 04/23/16 0000 Signed Impressions: Service Date/Time: Saturday, April 23, 2016 11:08 - CONCLUSION: No acute cardiopulmonary disease identified. Prabhu Jang MD Liver Ultrasound 04/12/16 0000 Signed Impressions: Service Date/Time: Tuesday, April 12, 2016 22:29 - CONCLUSION: 1. Solid indeterminate mass in the left lobe of the liver as well as a tiny cyst. An MRI of the abdomen with without contrast may be helpful for further assessment if felt clinically warranted. The possibility of a metastatic lesion is not excluded. 2. Cholelithiasis. 3. Bilateral pleural effusions are suspected sonographically. Chau Ward MD Chest CT 04/11/16 0000 Signed Impressions: Service Date/Time: Monday, April 11, 2016 14:09 - CONCLUSION: 1. Multiple small scattered noncalcified pulmonary nodules which are nonspecific but are of concern for early metastatic disease. 2. The known large tumor mass in the right side of the face and neck is partially visualized with destructive change involving the right side of the mandible. This extends into the right supraclavicular region. Please see soft tissue neck CT for further details. 3. Low attenuation lesion in the left lobe of the liver again noted. Holland Villegas MD Abdomen/Pelvis CT 04/11/16 0000 Signed Impressions: Service Date/Time: Monday, April 11, 2016 14:09 - CONCLUSION: 1. 1.4 cm low-attenuation lesion left lobe of the liver of concern for a metastasis. There is a smaller more cystic appearing structure in the right lobe. 2. The remainder of the study is unremarkable except for a PEG tube in the stomach. Holland Villegas MD Upper Extremity Ultrasound 04/08/16 0000 Signed Impressions: Service Date/Time: Friday, April 08, 2016 13:04 - CONCLUSION: No thrombus. Deshawn Michele MD Neck CT 04/02/16 0000 Signed Impressions: Service Date/Time: Saturday, April 02, 2016 11:54 - CONCLUSION: Very large heterogeneous soft tissue mass along the right side of the face with gross destruction involving most of the right mandible. The mass contains amorphous calcifications and appears to involve the right sternocleidomastoid muscle. The mass appears to extend into the oral cavity with diffuse enlargement of the right tonsillar pillar. Neoplastic disease in the primary consideration. Niall Corrales MD Multiplanar Reconstruction 04/02/16 0000 Signed Impressions: Service Date/Time: Saturday, April 02, 2016 11:54 - CONCLUSION: 3-D reconstructive images demonstrating destruction involving most the right side of the mandible. Niall Corrales MD Head CT 04/02/16 0000 Signed Impressions: Service Date/Time: Saturday, April 02, 2016 11:54 - CONCLUSION: 1. Unremarkable CT scan of the brain 2. Large abnormal soft tissue mass with calcifications along the right side of the face. Niall Corrales MD Procedures central line placement PEG placement bone biopsy teeth extraction Other Results Laboratory Tests Test 05/05/16 06:18 White Blood Count 6.3 TH/MM3 Red Blood Count 2.85 MIL/MM3 Hemoglobin 8.5 GM/DL Hematocrit 25.0 % Mean Corpuscular Volume 87.9 FL Mean Corpuscular Hemoglobin 29.7 PG Mean Corpuscular Hemoglobin 33.8 % Concent Red Cell Distribution Width 14.5 % Platelet Count 274 TH/MM3 Mean Platelet Volume 6.7 FL Neutrophils (%) (Auto) 87.8 % Lymphocytes (%) (Auto) 2.1 % Monocytes (%) (Auto) 9.5 % Eosinophils (%) (Auto) 0.3 % Basophils (%) (Auto) 0.3 % Neutrophils # (Auto) 5.5 TH/MM3 Lymphocytes # (Auto) 0.1 TH/MM3 Monocytes # (Auto) 0.6 TH/MM3 Eosinophils # (Auto) 0.0 TH/MM3 Basophils # (Auto) 0.0 TH/MM3 CBC Comment DIFF FINAL Differential Comment Sodium Level 130 MEQ/L Potassium Level 4.2 MEQ/L Chloride Level 94 MEQ/L Carbon Dioxide Level 28.8 MEQ/L Anion Gap 7 MEQ/L Blood Urea Nitrogen 12 MG/DL Creatinine 0.48 MG/DL Estimat Glomerular Filtration 197 ML/MIN Rate Random Glucose 103 MG/DL Calcium Level 8.1 MG/DL Phosphorus Level 2.6 MG/DL Magnesium Level 1.6 MG/DL Total Bilirubin 0.3 MG/DL Aspartate Amino Transf 18 U/L (AST/SGOT) Alanine Aminotransferase 15 U/L (ALT/SGPT) Alkaline Phosphatase 127 U/L Total Protein 5.7 GM/DL Albumin 1.5 GM/DL Objective Remarks Gen: No acute Distress. HEENT: large ulcerating exophytic mass on the right side of the face. mouth is partial shut. Lips cracked. purulent tissue in his mouth. CV RRR. no r/m/g Resp CTA B/L Abd soft NDNT EXT: no edema Medications and IVs Current Medications Medications (Trade) Dose Ordered Sig/Sara Route Start Time Stop Time Status Last Admin (Zofran Inj) 4 mg Q6H PRN IV PUSH 04/02/16 01:45 04/02/16 02:38 (NS Flush) 2 ml UNSCH PRN IVF 04/02/16 08:15 04/17/16 05:08 (NS Flush) 2 ml BID IVF 04/02/16 09:00 05/06/16 09:43 (Benadryl) 25 mg Q6H PRN PO 04/02/16 09:00 04/12/16 04:30 (Lovenox Inj) 30 mg Q24H SQ 04/04/16 15:30 05/05/16 15:00 (Free Water) VOLUME: 200 ML Q6HR G-TUBE 04/04/16 08:45 05/06/16 10:15 (Tylenol) 650 mg Q4H PRN PO 04/07/16 01:45 05/03/16 21:34 (Morphine Inj) 2 mg Q2HR PRN IV PUSH 04/08/16 09:00 (Hycet 325-7.5 Mg Liq) 15 ml Q3HR PRN PO 04/08/16 14:45 05/05/16 23:08 (Colace Liq) 100 mg BID PRN GT 04/15/16 12:15 (Clara-Colace) 2 tab BID G-TUBE 04/15/16 21:00 05/06/16 09:42 (Lactulose Liq) 30 ml TID PRN G-TUBE 04/15/16 12:15 (Dulcolax Supp) 10 mg DAILY PRN [place] 04/15/16 12:15 (Milk Of Magnesia Liq) 30 ml Q6H PRN GT 04/15/16 12:15 (Chapstick) 1 applic UNSCH PRN TOP 04/17/16 10:00 04/18/16 00:01 (Mag-Ox) 800 mg Q12HR GT 04/17/16 21:00 05/06/16 09:42 (Reglan Liq) 10 mg ACHS G-TUBE 04/19/16 16:00 05/06/16 11:23 (Miralax) 17 gm DAILY G-TUBE 04/22/16 09:00 05/06/16 09:43 (K-Phos) 500 mg Q12HR PO 04/24/16 12:00 05/06/16 09:43 (Lactinex) 1 tab TID PO 04/24/16 18:00 05/06/16 13:54 (Benadryl Inj) 25 mg Q4H PRN IV 04/26/16 19:00 (Diflucan) 200 mg DAILY PO 05/01/16 15:45 05/06/16 09:42 (Levaquin Liq) 500 mg DAILY TUBE 05/02/16 09:00 05/06/16 09:43 (Flagyl) 500 mg Q8HR PO 05/01/16 22:00 05/06/16 13:54 (Magic Mouthwash Adult Liq) 5 ml QID SWISH-SWAL 05/01/16 18:00 05/06/16 13:54 (K-Lyte Cl Eff) 40 meq Q12HR NG 05/04/16 22:00 05/06/16 09:42 A/P Assessment and Plan 1. Squamous Cell Carcinoma of Oropharynx, CT of the face showed very large heterogeneous soft tissue mass along the right side of the face with gross destruction involving most of the right mandible. Probable Metastatic Disease to the Abdomen and Lung/Liver. Status post bone biopsy, pathology reported differentiated squamous cell carcinoma. Patient undergoing chemotherapy Carbo/Taxol and BID Radiation Therapy. tax services specialist following. Continue pain control. General on facial surgery following for debulking next week. 2. Stomatitis and Mucositis, some otitis on Chemotherapy, continue Magic Mouth Wash 3. Sepsis one bottle of blood cultures, growing Pseudomonas Stutzeri. on Zosyn for 2 weeks Possible right facial wound and central line suspected source. Central line discontinued. Continue Metronidazole. Fluconazole and levofloxacin. 4. 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 5. Hypercalcemia of malignancy, status post treatment with Aredia. resolved 6. Anemia secondary to Chemotherapy, Status post Blood transfusion. 7. Electrolyte derangement replaced and following. 8. Severe Protein Calorie Malnutrition, status post PEG placement tube feedings 9. Constipation continue Colace, MiraLAX and Lactulose DVT prophylaxis with Lovenox. Discharge Planning Not yet cleared by hr specialist for discharge. Richie Cosby MD May 06, 2016 17:00
[2016-05-06] MEDS: ENOXAPARIN SODIUM 30 MG/0.3 ML SYRINGE SQ SCH (17:15)
[2016-05-06 20:00] VITALS: BP 126/63; PULSE 92; RESP 17; TEMP 96.3; O2SAT 97
[2016-05-06] MEDS: ACETAMINOPHEN 325MG/HYDROcodone 7.5MG/15ML UDC PO PRN (22:30)
[2016-05-07] VITALS: BP 105/55; PULSE 93; RESP 16; TEMP 96.8; O2SAT 96
[2016-05-07 04:00] VITALS: BP 104/55; PULSE 82; RESP 16; TEMP 96.4; O2SAT 98
[2016-05-07] MEDS: METOCLOPRAMIDE HCL SYRUP 10 MG/10 ML UDC G-TUBE SCH ×4 (05:20→21:58)
[2016-05-07] MEDS: metroNIDAZOLE 500 MG TAB PO SCH ×3 (05:20→21:59)
[2016-05-07] MEDS: FREE WATER G-TUBE SCH ×4 (05:20→22:26)
[2016-05-07 08:00] VITALS: BP 85/51; PULSE 84; RESP 16; TEMP 96.6; O2SAT 97
--- NOTE | 2016-05-07 08:18 | HHI.PR ---
Subjective Remarks Oropharynx Carcinoma Stomatitis, Hypercalcemia, Anemia, electrolyte Imbalance, Severe Malnutrition Patient stable in his bedroom, was needed to stop his Chemotherapy yesterday and receiving Chemotherapy today, he has Diagnosis of Invasive Squamous Cell Carcinoma receiving weekly Carbo/Taxol and BID XRT. Seen in his bedroom and discussed with nurse Miss Harrington no new issues, no complaint continue present care Objective Vital Signs Date Time Temp Pulse Resp B/P Pulse Ox O2 Delivery O2 Flow Rate FiO2 05/07/16 04:00 96.4 82 16 104/55 98 05/07/16 00:00 96.8 93 16 105/55 96 05/06/16 20:00 96.3 92 17 126/63 97 05/06/16 16:00 97.3 96 20 85/52 98 05/06/16 12:25 96.2 88 20 84/53 97 I/O 05/06/16 05/06/16 05/06/16 05/07/16 05/07/16 05/07/16 07:00 15:00 23:00 07:00 15:00 23:00 Intake Total 0 ml 1420 ml Balance 0 ml 1420 ml Intake Oral 0 ml IV Total 300 ml Tube Feeding 720 ml Other 400 ml # Voids 1 2 1 Result Diagram: 05/05/16 0618 05/05/16 0618 Imaging Last Impressions Chest X-Ray 04/23/16 0000 Signed Impressions: Service Date/Time: Saturday, April 23, 2016 11:08 - CONCLUSION: No acute cardiopulmonary disease identified. Prabhu Jang MD Liver Ultrasound 04/12/16 0000 Signed Impressions: Service Date/Time: Tuesday, April 12, 2016 22:29 - CONCLUSION: 1. Solid indeterminate mass in the left lobe of the liver as well as a tiny cyst. An MRI of the abdomen with without contrast may be helpful for further assessment if felt clinically warranted. The possibility of a metastatic lesion is not excluded. 2. Cholelithiasis. 3. Bilateral pleural effusions are suspected sonographically. Chau Ward MD Chest CT 04/11/16 0000 Signed Impressions: Service Date/Time: Monday, April 11, 2016 14:09 - CONCLUSION: 1. Multiple small scattered noncalcified pulmonary nodules which are nonspecific but are of concern for early metastatic disease. 2. The known large tumor mass in the right side of the face and neck is partially visualized with destructive change involving the right side of the mandible. This extends into the right supraclavicular region. Please see soft tissue neck CT for further details. 3. Low attenuation lesion in the left lobe of the liver again noted. Holland Villegas MD Abdomen/Pelvis CT 04/11/16 0000 Signed Impressions: Service Date/Time: Monday, April 11, 2016 14:09 - CONCLUSION: 1. 1.4 cm low-attenuation lesion left lobe of the liver of concern for a metastasis. There is a smaller more cystic appearing structure in the right lobe. 2. The remainder of the study is unremarkable except for a PEG tube in the stomach. Holland Villegas MD Upper Extremity Ultrasound 04/08/16 0000 Signed Impressions: Service Date/Time: Friday, April 08, 2016 13:04 - CONCLUSION: No thrombus. Deshawn Michele MD Neck CT 04/02/16 0000 Signed Impressions: Service Date/Time: Saturday, April 02, 2016 11:54 - CONCLUSION: Very large heterogeneous soft tissue mass along the right side of the face with gross destruction involving most of the right mandible. The mass contains amorphous calcifications and appears to involve the right sternocleidomastoid muscle. The mass appears to extend into the oral cavity with diffuse enlargement of the right tonsillar pillar. Neoplastic disease in the primary consideration. Niall Corrales MD Multiplanar Reconstruction 04/02/16 0000 Signed Impressions: Service Date/Time: Saturday, April 02, 2016 11:54 - CONCLUSION: 3-D reconstructive images demonstrating destruction involving most the right side of the mandible. Niall Corrales MD Head CT 04/02/16 0000 Signed Impressions: Service Date/Time: Saturday, April 02, 2016 11:54 - CONCLUSION: 1. Unremarkable CT scan of the brain 2. Large abnormal soft tissue mass with calcifications along the right side of the face. Niall Corrales MD Procedures central line placement PEG placement bone biopsy teeth extraction Other Results Laboratory Tests Test 05/05/16 05/07/16 06:18 07:20 White Blood Count 6.3 TH/MM3 Red Blood Count 2.85 MIL/MM3 Hemoglobin 8.5 GM/DL Hematocrit 25.0 % Mean Corpuscular Volume 87.9 FL Mean Corpuscular Hemoglobin 29.7 PG Mean Corpuscular Hemoglobin 33.8 % Concent Red Cell Distribution Width 14.5 % Platelet Count 274 TH/MM3 Mean Platelet Volume 6.7 FL Neutrophils (%) (Auto) 87.8 % Lymphocytes (%) (Auto) 2.1 % Monocytes (%) (Auto) 9.5 % Eosinophils (%) (Auto) 0.3 % Basophils (%) (Auto) 0.3 % Neutrophils # (Auto) 5.5 TH/MM3 Lymphocytes # (Auto) 0.1 TH/MM3 Monocytes # (Auto) 0.6 TH/MM3 Eosinophils # (Auto) 0.0 TH/MM3 Basophils # (Auto) 0.0 TH/MM3 CBC Comment DIFF FINAL Differential Comment Phosphorus Level 2.6 MG/DL Magnesium Level 1.6 MG/DL Total Bilirubin 0.3 MG/DL Aspartate Amino Transf 18 U/L (AST/SGOT) Alanine Aminotransferase 15 U/L (ALT/SGPT) Alkaline Phosphatase 127 U/L Total Protein 5.7 GM/DL Albumin 1.5 GM/DL Sodium Level 137 MEQ/L Potassium Level 4.4 MEQ/L Chloride Level 101 MEQ/L Carbon Dioxide Level 26.6 MEQ/L Anion Gap 9 MEQ/L Blood Urea Nitrogen 18 MG/DL Creatinine 0.42 MG/DL Estimat Glomerular Filtration 230 ML/MIN Rate Random Glucose 111 MG/DL Calcium Level 8.3 MG/DL Objective Remarks General: No acute Distress. HEENT: large ulcerating exophytic mass on the right side of the face. mouth is partial shut. Lips cracked. purulent tissue in his mouth. CV RRR. no r/m/g Resp CTA B/L Abd soft NDNT EXT: no edema Medications and IVs Current Medications Medications (Trade) Dose Ordered Sig/Sara Route Start Time Stop Time Status Last Admin (Zofran Inj) 4 mg Q6H PRN IV PUSH 04/02/16 01:45 04/02/16 02:38 (NS Flush) 2 ml UNSCH PRN IVF 04/02/16 08:15 04/17/16 05:08 (NS Flush) 2 ml BID IVF 04/02/16 09:00 05/06/16 21:00 (Benadryl) 25 mg Q6H PRN PO 04/02/16 09:00 04/12/16 04:30 (Lovenox Inj) 30 mg Q24H SQ 04/04/16 15:30 05/06/16 17:15 (Free Water) VOLUME: 200 ML Q6HR G-TUBE 04/04/16 08:45 05/07/16 05:20 (Tylenol) 650 mg Q4H PRN PO 04/07/16 01:45 05/03/16 21:34 (Morphine Inj) 2 mg Q2HR PRN IV PUSH 04/08/16 09:00 (Hycet 325-7.5 Mg Liq) 15 ml Q3HR PRN PO 04/08/16 14:45 05/06/16 22:30 (Colace Liq) 100 mg BID PRN GT 04/15/16 12:15 (Clara-Colace) 2 tab BID G-TUBE 04/15/16 21:00 05/06/16 21:15 (Lactulose Liq) 30 ml TID PRN G-TUBE 04/15/16 12:15 (Dulcolax Supp) 10 mg DAILY PRN [place] 04/15/16 12:15 (Milk Of Magnesia Liq) 30 ml Q6H PRN GT 04/15/16 12:15 (Chapstick) 1 applic UNSCH PRN TOP 04/17/16 10:00 04/18/16 00:01 (Mag-Ox) 800 mg Q12HR GT 04/17/16 21:00 05/06/16 21:00 (Reglan Liq) 10 mg ACHS G-TUBE 04/19/16 16:00 05/07/16 05:20 (Miralax) 17 gm DAILY G-TUBE 04/22/16 09:00 05/06/16 09:43 (K-Phos) 500 mg Q12HR PO 04/24/16 12:00 05/06/16 21:00 (Lactinex) 1 tab TID PO 04/24/16 18:00 05/06/16 17:15 (Benadryl Inj) 25 mg Q4H PRN IV 04/26/16 19:00 (Diflucan) 200 mg DAILY PO 05/01/16 15:45 05/06/16 09:42 (Levaquin Liq) 500 mg DAILY TUBE 05/02/16 09:00 05/06/16 09:43 (Flagyl) 500 mg Q8HR PO 05/01/16 22:00 05/07/16 05:20 (Magic Mouthwash Adult Liq) 5 ml QID SWISH-SWAL 05/01/16 18:00 05/06/16 21:00 (K-Lyte Cl Eff) 40 meq Q12HR NG 05/04/16 22:00 05/06/16 21:15 A/P Assessment and Plan 1. Squamous Cell Carcinoma of Oropharynx, CT of the face showed very large heterogeneous soft tissue mass along the right side of the face with gross destruction involving most of the right mandible. Probable Metastatic Disease to the Abdomen and Lung/Liver. Status post bone biopsy, pathology reported differentiated squamous cell carcinoma. Patient undergoing chemotherapy Carbo/Taxol and BID Radiation Therapy. seed specialist following. Continue pain control. General on facial surgery following for debulking next week. 2. Stomatitis and Mucositis, some otitis on Chemotherapy, continue Magic Mouth Wash 3. Sepsis one bottle of blood cultures, growing Pseudomonas Stutzeri. on Zosyn for 2 weeks Possible right facial wound and central line suspected source. Central line discontinued. Continue Metronidazole. Fluconazole and levofloxacin. 4. 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 5. Hypercalcemia of malignancy, status post treatment with Aredia. resolved 6. Anemia secondary to Chemotherapy, Status post Blood transfusion. 7. Severe Protein Calorie Malnutrition, status post PEG placement tube feedings 8. Constipation continue Colace, MiraLAX and Lactulose DVT prophylaxis with Lovenox. Continue present care, Following specialist recommendations. Discharge Planning Not yet cleared by delivery specialist for discharge. Richie Cosby MD May 07, 2016 08:18 Richie Cosby MD May 07, 2016 08:18
[2016-05-07 08:34] LABS: BICARBONATE 26.6 MEQ/L (21.0-32.0); POTASSIUM 4.4 MEQ/L (3.5-5.1)
[2016-05-07] MEDS: LACTOBACILLUS ACIDOPHILUS TAB PO SCH ×3 (08:51→18:00)
[2016-05-07] MEDS: DOCUSATE SODIUM 50 MG/SENNA 8.6 MG TAB G-TUBE SCH ×2 (08:51→22:00)
[2016-05-07] MEDS: MAGNESIUM OXIDE 400 MG TAB GT SCH ×2 (08:51→21:59)
[2016-05-07] MEDS: FLUCONAZOLE 200 MG TAB PO SCH (08:51)
[2016-05-07] MEDS: POTASSIUM CHLORIDE 25 MEQ EFFERVESCENT TAB NG SCH ×2 (08:51→21:00)
[2016-05-07] MEDS: LEVOFLOXACIN ORAL SOLN 2500 MG/100 ML BOTTLE TUBE SCH (08:51)
[2016-05-07] MEDS: POTASSIUM PHOSPHATE MONOBASIC 500 MG TAB PO SCH ×2 (08:52→21:58)
[2016-05-07] MEDS: POLYETHYLENE GLYCOL 17 GM PKG G-TUBE SCH (08:52)
[2016-05-07] MEDS: NYSTAT/DIPHENHY/LIDO MOUTHWASH (Adult) 120ML SWISH-SWAL SCH ×4 (08:52→21:00)
--- NOTE | 2016-05-07 11:31 | HHI.PR ---
Subjective Subjective Notes doing well. walking in hallways with friends from [employer], no problems or questions per pt. brother out getting some supplies Objective Vitals/I&O Vital Signs Date Time Temp Pulse Resp B/P Pulse Ox O2 Delivery O2 Flow Rate FiO2 05/07/16 08:00 96.6 84 16 85/51 97 Labs Laboratory Tests Test 05/07/16 07:20 Sodium Level 137 Potassium Level 4.4 Chloride Level 101 Carbon Dioxide Level 26.6 Anion Gap 9 Blood Urea Nitrogen 18 Creatinine 0.42 Estimat Glomerular Filtration 230 Rate Random Glucose 111 Calcium Level 8.3 Date/Time Procedure Status Source Growth 05/04/16 00:05 Aerobic Blood Culture - Preliminary Resulted Blood Other NO GROWTH IN 3 DAYS 05/04/16 00:05 Anaerobic Blood Culture - Preliminary Resulted Blood Other NO GROWTH IN 3 DAYS Cardiovascular: Regular Lungs: Clear Abdomen: Non-distended Narrative Exam facial dressing in place, clean and dry. A/P Assessment and Plan 35 year old male with large oropharyngeal cancer r -s/p PEG placement -s/p biopsy of mass -Continue chemotherapy and radiation -Tolerating bolus feedings I certify and attest that I personally examined this patient and reviewed her findings in the EMR. Ms Stapleton is documenting our encounter on my behalf and entered orders under my direct supervision. I discussed our recommendations with the patient and family at the bedside. I also discussed our encounter with the nursing staff present. Juan Das MD, FACS, MD May 07, 2016 11:31
[2016-05-07 12:00] VITALS: BP 89/59; PULSE 84; RESP 20; TEMP 96; O2SAT 99
[2016-05-07] MEDS: SODIUM CHLORIDE 0.9% FLUSH 5 ML FLUSH IVF SCH ×2 (12:25→21:59)
[2016-05-07] MEDS: ACETAMINOPHEN 325MG/HYDROcodone 7.5MG/15ML UDC PO PRN ×2 (12:37→22:26)
[2016-05-07] MEDS: ENOXAPARIN SODIUM 30 MG/0.3 ML SYRINGE SQ SCH (14:48)
[2016-05-07 16:04] VITALS: BP 88/55; PULSE 88; RESP 18; TEMP 96.7; O2SAT 98
[2016-05-07 20:00] VITALS: BP 115/60; PULSE 91; RESP 18; TEMP 96.4; O2SAT 99
[2016-05-08] VITALS: BP 106/63; PULSE 99; RESP 17; TEMP 96.1; O2SAT 98
[2016-05-08 04:00] VITALS: BP 110/59; PULSE 97; RESP 17; TEMP 96; O2SAT 97
[2016-05-08] MEDS: metroNIDAZOLE 500 MG TAB PO SCH ×3 (05:45→21:50)
[2016-05-08] MEDS: FREE WATER G-TUBE SCH ×4 (05:45→23:35)
[2016-05-08] MEDS: METOCLOPRAMIDE HCL SYRUP 10 MG/10 ML UDC G-TUBE SCH ×4 (05:45→21:49)
[2016-05-08 07:58] LABS: INTERNATIONAL NORMALIZED RATIO 1.2 RATIO; PROTHROMBIN TIME - PATIENT 13.2 SEC (9.8-11.6)
--- NOTE | 2016-05-08 08:07 | HHI.PR ---
Subjective Remarks Oropharynx Carcinoma Stomatitis, Hypercalcemia, Anemia, electrolyte Imbalance, Severe Malnutrition Patient stable in his bedroom, was needed to stop his Chemotherapy yesterday and receiving Chemotherapy today, he has Diagnosis of Invasive Squamous Cell Carcinoma receiving weekly Carbo/Taxol and BID XRT. Patient stable status post Radiation therapy, following specialist recommendations. Objective Vital Signs Date Time Temp Pulse Resp B/P Pulse Ox O2 Delivery O2 Flow Rate FiO2 05/08/16 04:00 96.0 97 17 110/59 97 05/08/16 00:00 96.1 99 17 106/63 98 05/07/16 20:00 96.4 91 18 115/60 99 05/07/16 16:04 96.7 88 18 88/55 98 05/07/16 12:00 96.0 84 20 89/59 99 I/O 05/07/16 05/07/16 05/07/16 05/08/16 05/08/16 05/08/16 07:00 15:00 23:00 07:00 15:00 23:00 Intake Total 0 ml Balance 0 ml Intake Oral 0 ml # Voids 1 2 1 1 # Bowel Movements 1 Result Diagram: 05/05/16 0618 05/07/16 0720 Imaging Last Impressions Chest X-Ray 04/23/16 0000 Signed Impressions: Service Date/Time: Saturday, April 23, 2016 11:08 - CONCLUSION: No acute cardiopulmonary disease identified. Prabhu Jang MD Liver Ultrasound 04/12/16 0000 Signed Impressions: Service Date/Time: Tuesday, April 12, 2016 22:29 - CONCLUSION: 1. Solid indeterminate mass in the left lobe of the liver as well as a tiny cyst. An MRI of the abdomen with without contrast may be helpful for further assessment if felt clinically warranted. The possibility of a metastatic lesion is not excluded. 2. Cholelithiasis. 3. Bilateral pleural effusions are suspected sonographically. Chau Ward MD Chest CT 04/11/16 0000 Signed Impressions: Service Date/Time: Monday, April 11, 2016 14:09 - CONCLUSION: 1. Multiple small scattered noncalcified pulmonary nodules which are nonspecific but are of concern for early metastatic disease. 2. The known large tumor mass in the right side of the face and neck is partially visualized with destructive change involving the right side of the mandible. This extends into the right supraclavicular region. Please see soft tissue neck CT for further details. 3. Low attenuation lesion in the left lobe of the liver again noted. Holland Villegas MD Abdomen/Pelvis CT 04/11/16 0000 Signed Impressions: Service Date/Time: Monday, April 11, 2016 14:09 - CONCLUSION: 1. 1.4 cm low-attenuation lesion left lobe of the liver of concern for a metastasis. There is a smaller more cystic appearing structure in the right lobe. 2. The remainder of the study is unremarkable except for a PEG tube in the stomach. Holland iVllegas MD Upper Extremity Ultrasound 04/08/16 0000 Signed Impressions: Service Date/Time: Friday, April 08, 2016 13:04 - CONCLUSION: No thrombus. Deshawn Michele MD Neck CT 04/02/16 0000 Signed Impressions: Service Date/Time: Saturday, April 02, 2016 11:54 - CONCLUSION: Very large heterogeneous soft tissue mass along the right side of the face with gross destruction involving most of the right mandible. The mass contains amorphous calcifications and appears to involve the right sternocleidomastoid muscle. The mass appears to extend into the oral cavity with diffuse enlargement of the right tonsillar pillar. Neoplastic disease in the primary consideration. Niall Corrales MD Multiplanar Reconstruction 04/02/16 0000 Signed Impressions: Service Date/Time: Saturday, April 02, 2016 11:54 - CONCLUSION: 3-D reconstructive images demonstrating destruction involving most the right side of the mandible. Niall Corrales MD Head CT 04/02/16 0000 Signed Impressions: Service Date/Time: Saturday, April 02, 2016 11:54 - CONCLUSION: 1. Unremarkable CT scan of the brain 2. Large abnormal soft tissue mass with calcifications along the right side of the face. Niall Corrales MD Procedures central line placement PEG placement bone biopsy teeth extraction Other Results Laboratory Tests Test 05/05/16 05/08/16 06:18 07:20 White Blood Count 6.3 TH/MM3 Red Blood Count 2.85 MIL/MM3 Hemoglobin 8.5 GM/DL Hematocrit 25.0 % Mean Corpuscular Volume 87.9 FL Mean Corpuscular Hemoglobin 29.7 PG Mean Corpuscular Hemoglobin 33.8 % Concent Red Cell Distribution Width 14.5 % Platelet Count 274 TH/MM3 Mean Platelet Volume 6.7 FL Neutrophils (%) (Auto) 87.8 % Lymphocytes (%) (Auto) 2.1 % Monocytes (%) (Auto) 9.5 % Eosinophils (%) (Auto) 0.3 % Basophils (%) (Auto) 0.3 % Neutrophils # (Auto) 5.5 TH/MM3 Lymphocytes # (Auto) 0.1 TH/MM3 Monocytes # (Auto) 0.6 TH/MM3 Eosinophils # (Auto) 0.0 TH/MM3 Basophils # (Auto) 0.0 TH/MM3 CBC Comment DIFF FINAL Differential Comment Prothrombin Time 13.2 SEC Prothromb Time International 1.2 RATIO Ratio Sodium Level 133 MEQ/L Potassium Level 3.4 MEQ/L Chloride Level 96 MEQ/L Carbon Dioxide Level 27.4 MEQ/L Anion Gap 10 MEQ/L Blood Urea Nitrogen 18 MG/DL Creatinine 0.42 MG/DL Estimat Glomerular Filtration 230 ML/MIN Rate Random Glucose 106 MG/DL Calcium Level 8.2 MG/DL Phosphorus Level 2.6 MG/DL Magnesium Level 1.5 MG/DL Total Bilirubin 0.2 MG/DL Aspartate Amino Transf 20 U/L (AST/SGOT) Alanine Aminotransferase 22 U/L (ALT/SGPT) Alkaline Phosphatase 120 U/L Total Protein 5.6 GM/DL Albumin 1.6 GM/DL Triglycerides Level 156 MG/DL Objective Remarks General: No acute Distress. HEENT: large ulcerating exophytic mass on the right side of the face. mouth is partial shut. Lips cracked. purulent tissue in his mouth. CV RRR. no r/m/g Resp CTA B/L Abd soft NDNT EXT: no edema Medications and IVs Current Medications Medications (Trade) Dose Ordered Sig/Sara Route Start Time Stop Time Status Last Admin (Zofran Inj) 4 mg Q6H PRN IV PUSH 04/02/16 01:45 04/02/16 02:38 (NS Flush) 2 ml UNSCH PRN IVF 04/02/16 08:15 04/17/16 05:08 (NS Flush) 2 ml BID IVF 04/02/16 09:00 05/07/16 21:59 (Benadryl) 25 mg Q6H PRN PO 04/02/16 09:00 04/12/16 04:30 (Lovenox Inj) 30 mg Q24H SQ 04/04/16 15:30 05/07/16 14:48 (Free Water) VOLUME: 200 ML Q6HR G-TUBE 04/04/16 08:45 05/08/16 05:45 (Tylenol) 650 mg Q4H PRN PO 04/07/16 01:45 05/03/16 21:34 (Morphine Inj) 2 mg Q2HR PRN IV PUSH 04/08/16 09:00 (Hycet 325-7.5 Mg Liq) 15 ml Q3HR PRN PO 04/08/16 14:45 05/07/16 22:26 (Colace Liq) 100 mg BID PRN GT 04/15/16 12:15 (Clara-Colace) 2 tab BID G-TUBE 04/15/16 21:00 05/07/16 22:00 (Lactulose Liq) 30 ml TID PRN G-TUBE 04/15/16 12:15 (Dulcolax Supp) 10 mg DAILY PRN [place] 04/15/16 12:15 (Milk Of Magnesia Liq) 30 ml Q6H PRN GT 04/15/16 12:15 (Chapstick) 1 applic UNSCH PRN TOP 04/17/16 10:00 04/18/16 00:01 (Mag-Ox) 800 mg Q12HR GT 04/17/16 21:00 05/07/16 21:59 (Reglan Liq) 10 mg ACHS G-TUBE 04/19/16 16:00 05/08/16 05:45 (Miralax) 17 gm DAILY G-TUBE 04/22/16 09:00 05/07/16 08:52 (K-Phos) 500 mg Q12HR PO 04/24/16 12:00 05/07/16 21:58 (Lactinex) 1 tab TID PO 04/24/16 18:00 05/07/16 18:00 (Benadryl Inj) 25 mg Q4H PRN IV 04/26/16 19:00 (Diflucan) 200 mg DAILY PO 05/01/16 15:45 05/07/16 08:51 (Levaquin Liq) 500 mg DAILY TUBE 05/02/16 09:00 05/07/16 08:51 (Flagyl) 500 mg Q8HR PO 05/01/16 22:00 05/08/16 05:45 (Magic Mouthwash Adult Liq) 5 ml QID SWISH-SWAL 05/01/16 18:00 05/07/16 18:43 (K-Lyte Cl Eff) 40 meq Q12HR NG 05/04/16 22:00 05/07/16 08:51 A/P Assessment and Plan 1. Squamous Cell Carcinoma of Oropharynx, CT of the face showed very large heterogeneous soft tissue mass along the right side of the face with gross destruction involving most of the right mandible. Probable Metastatic Disease to the Abdomen and Lung/Liver. Status post bone biopsy, pathology reported differentiated squamous cell carcinoma. Patient undergoing chemotherapy Carbo/Taxol and BID Radiation Therapy. customer contact specialist following. Continue pain control. General on facial surgery following for debulking surgery this week not yet orders by specialist. 2. Stomatitis and Mucositis, some otitis on Chemotherapy, continue Magic Mouth Wash 3. Sepsis one bottle of blood cultures, growing Pseudomonas Stutzeri. on Zosyn for 2 weeks Possible right facial wound and central line suspected source. Central line discontinued. Continue Metronidazole. Fluconazole and levofloxacin. 4. 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 5. Hypercalcemia of malignancy, status post treatment with Aredia. resolved 6. Anemia secondary to Chemotherapy, Status post Blood transfusion. 7. Severe Protein Calorie Malnutrition, status post PEG placement tube feedings 8. Constipation continue Colace, MiraLAX and Lactulose DVT prophylaxis with Lovenox. Continue present care, Following specialist recommendations. Discharge Planning Not yet cleared by senior technical specialist for discharge. Richie Cosby MD May 08, 2016 08:07
[2016-05-08 08:25] LABS: ALKALINE PHOSPHATASE 120 U/L (45-117); ALT (GPT) 22 U/L (12-78); ANION GAP 10 MEQ/L (5-15); AST (GOT) 20 U/L (15-37); BICARBONATE 27.4 MEQ/L (21.0-32.0); BLOOD UREA NITROGEN 18 MG/DL (7-18); CHLORIDE 96 MEQ/L (98-107); GLOMERULAR FILTRATION RATE 230 ML/MIN (>89); MAGNESIUM 1.5 MG/DL (1.5-2.5); POTASSIUM 3.4 MEQ/L (3.5-5.1); SODIUM (NA) 133 MEQ/L (136-145); TOTAL BILIRUBIN ADULT 0.2 MG/DL (0.2-1.0)
[2016-05-08 08:46] VITALS: BP 100/59; PULSE 111; RESP 16; TEMP 97.1; O2SAT 97
[2016-05-08] MEDS: LACTOBACILLUS ACIDOPHILUS TAB PO SCH ×3 (10:10→18:26)
[2016-05-08] MEDS: POTASSIUM CHLORIDE 25 MEQ EFFERVESCENT TAB NG SCH ×2 (10:10→21:49)
[2016-05-08] MEDS: LEVOFLOXACIN ORAL SOLN 2500 MG/100 ML BOTTLE TUBE SCH (10:11)
[2016-05-08] MEDS: MAGNESIUM OXIDE 400 MG TAB GT SCH ×2 (10:11→21:50)
[2016-05-08] MEDS: DOCUSATE SODIUM 50 MG/SENNA 8.6 MG TAB G-TUBE SCH ×2 (10:11→22:21)
[2016-05-08] MEDS: POLYETHYLENE GLYCOL 17 GM PKG G-TUBE SCH (10:11)
[2016-05-08] MEDS: FLUCONAZOLE 200 MG TAB PO SCH (10:12)
[2016-05-08] MEDS: SODIUM CHLORIDE 0.9% FLUSH 5 ML FLUSH IVF SCH ×2 (10:12→21:50)
[2016-05-08] MEDS: POTASSIUM PHOSPHATE MONOBASIC 500 MG TAB PO SCH ×2 (10:12→21:50)
[2016-05-08] MEDS: ACETAMINOPHEN 325MG/HYDROcodone 7.5MG/15ML UDC PO PRN ×2 (10:38→22:20)
[2016-05-08] MEDS: NYSTAT/DIPHENHY/LIDO MOUTHWASH (Adult) 120ML SWISH-SWAL SCH ×4 (10:43→22:21)
[2016-05-08 12:00] VITALS: BP 104/62; PULSE 109; RESP 16; TEMP 98; O2SAT 97
[2016-05-08 16:42] VITALS: BP 107/64; PULSE 106; RESP 16; TEMP 96.9; O2SAT 100
[2016-05-08] MEDS: ENOXAPARIN SODIUM 30 MG/0.3 ML SYRINGE SQ SCH (18:25)
[2016-05-08 20:00] VITALS: BP 105/58; PULSE 120; RESP 18; TEMP 100.8; O2SAT 98
[2016-05-09] VITALS (7 sets, daily range): BP systolic 98–108; BP diastolic 54–61; PULSE 107–117; RESP 16–18; TEMP 97.8–99.2; O2SAT 95–100
[2016-05-09] MEDS: METOCLOPRAMIDE HCL SYRUP 10 MG/10 ML UDC G-TUBE SCH ×4 (06:15→22:43)
[2016-05-09] MEDS: metroNIDAZOLE 500 MG TAB PO SCH ×3 (06:15→22:42)
[2016-05-09] MEDS: FREE WATER G-TUBE SCH ×4 (06:20→22:43)
[2016-05-09] MEDS: POTASSIUM CHLORIDE 25 MEQ EFFERVESCENT TAB NG SCH ×2 (10:18→22:42)
[2016-05-09] MEDS: SODIUM CHLORIDE 0.9% FLUSH 5 ML FLUSH IVF SCH ×2 (10:18→22:42)
[2016-05-09] MEDS: DOCUSATE SODIUM 50 MG/SENNA 8.6 MG TAB G-TUBE SCH ×2 (10:18→21:00)
[2016-05-09] MEDS: MAGNESIUM OXIDE 400 MG TAB GT SCH ×2 (10:18→22:42)
[2016-05-09] MEDS: LACTOBACILLUS ACIDOPHILUS TAB PO SCH ×3 (10:18→16:46)
[2016-05-09] MEDS: POTASSIUM PHOSPHATE MONOBASIC 500 MG TAB PO SCH ×2 (10:18→22:42)
[2016-05-09] MEDS: FLUCONAZOLE 200 MG TAB PO SCH (10:18)
[2016-05-09] MEDS: POLYETHYLENE GLYCOL 17 GM PKG G-TUBE SCH (10:18)
[2016-05-09] MEDS: LEVOFLOXACIN ORAL SOLN 2500 MG/100 ML BOTTLE TUBE SCH (10:24)
[2016-05-09] MEDS: NYSTAT/DIPHENHY/LIDO MOUTHWASH (Adult) 120ML SWISH-SWAL SCH ×4 (10:25→21:00)
--- NOTE | 2016-05-09 10:52 | HHI.PR ---
Subjective Remarks Oropharynx Carcinoma Stomatitis, Hypercalcemia, Anemia, electrolyte Imbalance, Severe Malnutrition Patient stable in his bedroom, was needed to stop his Chemotherapy yesterday and receiving Chemotherapy today, he has Diagnosis of Invasive Squamous Cell Carcinoma receiving weekly Carbo/Taxol and BID XRT. seen in his bedroom in the presence of his brother, just had a new Radiation therapy today. continue with excessive purulent tissue production asked for ID specialist evaluation. Objective Vital Signs Date Time Temp Pulse Resp B/P Pulse Ox O2 Delivery O2 Flow Rate FiO2 05/09/16 10:15 98.3 05/09/16 08:00 99.2 117 16 101/57 95 05/09/16 05:30 99.0 113 16 101/56 97 05/09/16 00:00 97.8 112 16 98/54 96 05/08/16 23:20 18 05/08/16 20:00 100.8 120 18 105/58 98 05/08/16 16:42 96.9 106 16 107/64 100 05/08/16 12:00 98.0 109 16 104/62 97 I/O 05/08/16 05/08/16 05/08/16 05/09/16 05/09/16 05/09/16 06:59 14:59 22:59 06:59 14:59 22:59 Intake Total 540 ml Balance 540 ml Tube Feeding 240 ml Other 300 ml # Voids 1 2 2 # Bowel Movements 1 Result Diagram: 05/05/16 0618 05/08/16 0720 Imaging Last Impressions Chest X-Ray 04/23/16 0000 Signed Impressions: Service Date/Time: Saturday, April 23, 2016 11:08 - CONCLUSION: No acute cardiopulmonary disease identified. Prabhu Jang MD Liver Ultrasound 04/12/16 0000 Signed Impressions: Service Date/Time: Tuesday, April 12, 2016 22:29 - CONCLUSION: 1. Solid indeterminate mass in the left lobe of the liver as well as a tiny cyst. An MRI of the abdomen with without contrast may be helpful for further assessment if felt clinically warranted. The possibility of a metastatic lesion is not excluded. 2. Cholelithiasis. 3. Bilateral pleural effusions are suspected sonographically. Chau Ward MD Chest CT 04/11/16 0000 Signed Impressions: Service Date/Time: Monday, April 11, 2016 14:09 - CONCLUSION: 1. Multiple small scattered noncalcified pulmonary nodules which are nonspecific but are of concern for early metastatic disease. 2. The known large tumor mass in the right side of the face and neck is partially visualized with destructive change involving the right side of the mandible. This extends into the right supraclavicular region. Please see soft tissue neck CT for further details. 3. Low attenuation lesion in the left lobe of the liver again noted. Holland Villegas MD Abdomen/Pelvis CT 04/11/16 Signed Impressions: Service Date/Time: Monday, April 11, 2016 14:09 - CONCLUSION: 1. 1.4 cm low-attenuation lesion left lobe of the liver of concern for a metastasis. There is a smaller more cystic appearing structure in the right lobe. 2. The remainder of the study is unremarkable except for a PEG tube in the stomach. Holland Villegas MD Upper Extremity Ultrasound 04/08/16 0000 Signed Impressions: Service Date/Time: Friday, April 08, 2016 13:04 - CONCLUSION: No thrombus. Deshawn Michele MD Neck CT 04/02/16 0000 Signed Impressions: Service Date/Time: Saturday, April 02, 2016 11:54 - CONCLUSION: Very large heterogeneous soft tissue mass along the right side of the face with gross destruction involving most of the right mandible. The mass contains amorphous calcifications and appears to involve the right sternocleidomastoid muscle. The mass appears to extend into the oral cavity with diffuse enlargement of the right tonsillar pillar. Neoplastic disease in the primary consideration. Niall Corrales MD Multiplanar Reconstruction 04/02/16 Signed Impressions: Service Date/Time: Saturday, April 02, 2016 11:54 - CONCLUSION: 3-D reconstructive images demonstrating destruction involving most the right side of the mandible. Niall Corrales MD Head CT 04/02/16 0000 Signed Impressions: Service Date/Time: Saturday, April 02, 2016 11:54 - CONCLUSION: 1. Unremarkable CT scan of the brain 2. Large abnormal soft tissue mass with calcifications along the right side of the face. Niall Corrales MD Procedures central line placement PEG placement bone biopsy teeth extraction Other Results Laboratory Tests Test 05/05/16 05/08/16 06:18 07:20 White Blood Count 6.3 TH/MM3 Red Blood Count 2.85 MIL/MM3 Hemoglobin 8.5 GM/DL Hematocrit 25.0 % Mean Corpuscular Volume 87.9 FL Mean Corpuscular Hemoglobin 29.7 PG Mean Corpuscular Hemoglobin 33.8 % Concent Red Cell Distribution Width 14.5 % Platelet Count 274 TH/MM3 Mean Platelet Volume 6.7 FL Neutrophils (%) (Auto) 87.8 % Lymphocytes (%) (Auto) 2.1 % Monocytes (%) (Auto) 9.5 % Eosinophils (%) (Auto) 0.3 % Basophils (%) (Auto) 0.3 % Neutrophils # (Auto) 5.5 TH/MM3 Lymphocytes # (Auto) 0.1 TH/MM3 Monocytes # (Auto) 0.6 TH/MM3 Eosinophils # (Auto) 0.0 TH/MM3 Basophils # (Auto) 0.0 TH/MM3 CBC Comment DIFF FINAL Differential Comment Prothrombin Time 13.2 SEC Prothromb Time International 1.2 RATIO Ratio Sodium Level 133 MEQ/L Potassium Level 3.4 MEQ/L Chloride Level 96 MEQ/L Carbon Dioxide Level 27.4 MEQ/L Anion Gap 10 MEQ/L Blood Urea Nitrogen 18 MG/DL Creatinine 0.42 MG/DL Estimat Glomerular Filtration 230 ML/MIN Rate Random Glucose 106 MG/DL Calcium Level 8.2 MG/DL Phosphorus Level 2.6 MG/DL Magnesium Level 1.5 MG/DL Total Bilirubin 0.2 MG/DL Aspartate Amino Transf 20 U/L (AST/SGOT) Alanine Aminotransferase 22 U/L (ALT/SGPT) Alkaline Phosphatase 120 U/L Total Protein 5.6 GM/DL Albumin 1.6 GM/DL Triglycerides Level 156 MG/DL Objective Remarks General: No acute Distress. HEENT: large ulcerating exophytic mass on the right side of the face. mouth is partial shut. Lips cracked. purulent tissue in his mouth. CV RRR. no r/m/g Resp CTA B/L Abd soft NDNT EXT: no edema Medications and IVs Current Medications Medications (Trade) Dose Ordered Sig/Sara Route Start Time Stop Time Status Last Admin (Zofran Inj) 4 mg Q6H PRN IV PUSH 04/02/16 01:45 04/02/16 02:38 (NS Flush) 2 ml UNSCH PRN IVF 04/02/16 08:15 04/17/16 05:08 (NS Flush) 2 ml BID IVF 04/02/16 09:00 05/09/16 10:18 (Benadryl) 25 mg Q6H PRN PO 04/02/16 09:00 04/12/16 04:30 (Lovenox Inj) 30 mg Q24H SQ 04/04/16 15:30 05/08/16 18:25 (Free Water) VOLUME: 200 ML Q6HR G-TUBE 04/04/16 08:45 05/09/16 10:25 (Tylenol) 650 mg Q4H PRN PO 04/07/16 01:45 05/03/16 21:34 (Morphine Inj) 2 mg Q2HR PRN IV PUSH 04/08/16 09:00 (Hycet 325-7.5 Mg Liq) 15 ml Q3HR PRN PO 04/08/16 14:45 05/08/16 22:20 (Colace Liq) 100 mg BID PRN GT 04/15/16 12:15 (Clara-Colace) 2 tab BID G-TUBE 04/15/16 21:00 05/07/16 22:00 (Lactulose Liq) 30 ml TID PRN G-TUBE 04/15/16 12:15 (Dulcolax Supp) 10 mg DAILY PRN MO 04/15/16 12:15 (Milk Of Magnesia Liq) 30 ml Q6H PRN GT 04/15/16 12:15 (Chapstick) 1 applic UNSCH PRN TOP 04/17/16 10:00 04/18/16 00:01 (Mag-Ox) 800 mg Q12HR GT 04/17/16 21:00 05/09/16 10:18 (Reglan Liq) 10 mg ACHS G-TUBE 04/19/16 16:00 05/09/16 10:24 (Miralax) 17 gm DAILY G-TUBE 04/22/16 09:00 05/07/16 08:52 (K-Phos) 500 mg Q12HR PO 04/24/16 12:00 05/09/16 10:18 (Lactinex) 1 tab TID PO 04/24/16 18:00 05/09/16 10:18 (Benadryl Inj) 25 mg Q4H PRN IV 04/26/16 19:00 (Diflucan) 200 mg DAILY PO 05/01/16 15:45 05/09/16 10:18 (Levaquin Liq) 500 mg DAILY TUBE 05/02/16 09:00 05/09/16 10:24 (Flagyl) 500 mg Q8HR PO 05/01/16 22:00 05/09/16 06:15 (Magic Mouthwash Adult Liq) 5 ml QID SWISH-SWAL 05/01/16 18:00 05/09/16 10:25 (K-Lyte Cl Eff) 40 meq Q12HR NG 05/04/16 22:00 05/09/16 10:18 A/P Assessment and Plan 1. Squamous Cell Carcinoma of Oropharynx, CT of the face showed very large heterogeneous soft tissue mass along the right side of the face with gross destruction involving most of the right mandible. Probable Metastatic Disease to the Abdomen and Lung/Liver. 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 status post Radiation therapy today, continue Carbo /Taxol and BID radiation Facial Surgery and General Surgery following. 2. Stomatitis and Mucositis, some otitis on Chemotherapy, continue Magic Mouth Wash 3. Sepsis one bottle of blood cultures, growing Pseudomonas Stutzeri. on Zosyn for 2 weeks Possible right facial wound and central line suspected source. Central line discontinued. Continue Metronidazole. Fluconazole and levofloxacin. 4. 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 5. Hypercalcemia of malignancy, status post treatment with Aredia. resolved 6. Anemia secondary to Chemotherapy, Status post Blood transfusion. 7. Severe Protein Calorie Malnutrition, status post PEG placement tube feedings 8. Constipation continue Colace, MiraLAX and Lactulose 9. electrolyte derangement given replacement and following. DVT prophylaxis with Lovenox. Continue present care, Following specialist recommendations. discussed with Patient, nurse Miss Mehta and with his Brother in the room Discharge Planning Not yet cleared by closing specialist for discharge. Richie Devries MD May 09, 2016 10:52
[2016-05-09] MEDS: ACETAMINOPHEN 325MG/HYDROcodone 7.5MG/15ML UDC PO PRN (12:24)
[2016-05-09] MEDS: ENOXAPARIN SODIUM 30 MG/0.3 ML SYRINGE SQ SCH (16:46)
[2016-05-09] MEDS: ACETAMINOPHEN 325 MG TAB PO PRN (23:59)
[2016-05-10] VITALS: BP 100/56; PULSE 124; RESP 18; TEMP 100.4; O2SAT 96
[2016-05-10] MEDS: ACETAMINOPHEN 325MG/HYDROcodone 7.5MG/15ML UDC PO PRN ×3 (00:30→21:39)
--- NOTE | 2016-05-10 00:39 | RADRPT ---
EXAM DATE/TIME: 05/10/2016 00:10 [facility] COMPARISON: CHEST SINGLE AP, April 23, 2016, 11:08. INDICATIONS : Fever. MEDICAL HISTORY : Ear. Nose. Throat carcinoma SURGICAL HISTORY : None. ENCOUNTER: Subsequent ACUITY: 1 month PAIN SCORE: Non-responsive. LOCATION: Bilateral chest FINDINGS: A single view of the chest demonstrates the lungs to be symmetrically aerated without evidence of mas s, infiltrate or effusion. The cardiomediastinal contours are unremarkable. Osseous structures are intact. CONCLUSION: No acute cardiopulmonary process. Demetrio Pressley MD on May 10, 2016 at 0:38 Board Certified Radiologist. This report was verified electronically.
[2016-05-10 05:00] VITALS: BP 105/57; PULSE 101; RESP 18; TEMP 97.3; O2SAT 99
[2016-05-10] MEDS: metroNIDAZOLE 500 MG TAB PO SCH ×3 (06:00→21:39)
[2016-05-10] MEDS: FREE WATER G-TUBE SCH ×4 (06:00→22:42)
[2016-05-10] MEDS: METOCLOPRAMIDE HCL SYRUP 10 MG/10 ML UDC G-TUBE SCH ×4 (06:26→21:40)
[2016-05-10 07:45] VITALS: BP_SYST 125; BP_SYST 87; BP_DIAS 54; BP_DIAS 76; PULSE 111; PULSE 84; RESP 16; RESP 18; TEMP 97.3; O2SAT 93
[2016-05-10 07:48] LABS: BICARBONATE 28.4 MEQ/L (21.0-32.0); MAGNESIUM 1.6 MG/DL (1.5-2.5); POTASSIUM 4.3 MEQ/L (3.5-5.1)
[2016-05-10] MEDS: POLYETHYLENE GLYCOL 17 GM PKG G-TUBE SCH (08:04)
[2016-05-10] MEDS: DOCUSATE SODIUM 50 MG/SENNA 8.6 MG TAB G-TUBE SCH ×2 (08:04→21:00)
[2016-05-10] MEDS: POTASSIUM CHLORIDE 25 MEQ EFFERVESCENT TAB NG SCH ×2 (08:40→21:39)
[2016-05-10] MEDS: MAGNESIUM OXIDE 400 MG TAB GT SCH ×2 (08:40→21:00)
[2016-05-10] MEDS: LEVOFLOXACIN ORAL SOLN 2500 MG/100 ML BOTTLE TUBE SCH (08:40)
[2016-05-10] MEDS: NYSTAT/DIPHENHY/LIDO MOUTHWASH (Adult) 120ML SWISH-SWAL SCH ×4 (08:40→21:00)
[2016-05-10] MEDS: POTASSIUM PHOSPHATE MONOBASIC 500 MG TAB PO SCH ×2 (08:41→21:39)
[2016-05-10] MEDS: LACTOBACILLUS ACIDOPHILUS TAB PO SCH ×3 (08:41→18:09)
[2016-05-10] MEDS: FLUCONAZOLE 200 MG TAB PO SCH (08:41)
[2016-05-10] MEDS: SODIUM CHLORIDE 0.9% FLUSH 5 ML FLUSH IVF SCH ×2 (08:41→21:40)
--- NOTE | 2016-05-10 10:49 | PD.ONC.PN ---
Subjective Subjective Remarks Tmax 100.4 overnight. Pt resting in bed, has just returned from XRT. Brother at bedside. Stratus was used to discuss plan and concerns. The brother is asking why they are not seeing infectious disease. Objective Data Date Time Temp Pulse Resp B/P Pulse Ox O2 Delivery O2 Flow Rate FiO2 05/10/16 07:45 111 16 87/54 93 05/10/16 05:00 97.3 101 18 105/57 99 05/10/16 00:00 100.4 124 18 100/56 96 05/09/16 20:00 98.9 116 18 99/57 100 05/09/16 16:15 98.9 107 16 101/61 98 05/09/16 12:48 99.1 116 16 108/60 96 Result Diagram: 05/10/16 0610 Laboratory Results Laboratory Tests Test 05/10/16 06:10 Sodium Level 133 MEQ/L Potassium Level 4.3 MEQ/L Chloride Level 97 MEQ/L Carbon Dioxide Level 28.4 MEQ/L Anion Gap 8 MEQ/L Blood Urea Nitrogen 18 MG/DL Creatinine 0.39 MG/DL Estimat Glomerular Filtration 251 ML/MIN Rate Random Glucose 91 MG/DL Calcium Level 8.8 MG/DL Phosphorus Level 2.5 MG/DL Magnesium Level 1.6 MG/DL Culture Results Microbiology Date/Time Procedure Status Source Growth 05/10/16 01:15 Aerobic Blood Culture Received Blood Peripheral Pending 05/10/16 01:15 Anaerobic Blood Culture Received Blood Peripheral Pending 05/10/16 01:20 Aerobic Blood Culture Received Blood Line Pending 05/10/16 01:20 Anaerobic Blood Culture Received Blood Line Pending 05/10/16 08:50 Urine Culture Received Urine Clean Catch Pending Imaging Studies Last 24 hours Impressions Chest X-Ray 05/10/16 0000 Signed Impressions: Service Date/Time: Tuesday, May 10, 2016 00:10 - CONCLUSION: No acute cardiopulmonary process. Demetrio Pressley MD Administered Medications Medications (Trade) Dose Ordered Sig/Sara Route PRN Reason Start Time Stop Time Status Last Admin Dose Admin Ondansetron HCl (Zofran Inj) 4 mg Q6H PRN IV PUSH NAUSEA 04/02/16 01:45 04/02/16 02:38 IV Flush (NS Flush) 2 ml UNSCH PRN IVF FLUSH AFTER USING IV ACCESS 04/02/16 08:15 04/17/16 05:08 IV Flush (NS Flush) 2 ml BID IVF 04/02/16 09:00 05/10/16 08:41 Diphenhydramine HCl (Benadryl) 25 mg Q6H PRN PO ITCHING 04/02/16 09:00 04/12/16 04:30 Enoxaparin Sodium (Lovenox Inj) 30 mg Q24H SQ 04/04/16 15:30 05/09/16 16:46 Water (Free Water) VOLUME: 200 ML Q6HR G-TUBE 04/04/16 08:45 05/10/16 06:00 Acetaminophen (Tylenol) 650 mg Q4H PRN PO FEVER OVER 101.0 04/07/16 01:45 05/09/16 23:59 Acetaminophen/ Hydrocodone Bitart (Hycet 325-7.5 Mg Liq) 15 ml Q3HR PRN PO pain1-9 04/08/16 14:45 05/10/16 00:30 Senna/Docusate Sodium (Clara-Colace) 2 tab BID G-TUBE 04/15/16 21:00 05/07/16 22:00 Padimate O (Chapstick) 1 applic UNSCH PRN TOP DISCOMFORT 04/17/16 10:00 04/18/16 00:01 Magnesium Oxide (Mag-Ox) 800 mg Q12HR GT 04/17/16 21:00 05/10/16 08:40 Metoclopramide HCl (Reglan Liq) 10 mg ACHS G-TUBE 04/19/16 16:00 05/10/16 06:26 Polyethylene Glycol (Miralax) 17 gm DAILY G-TUBE 04/22/16 09:00 05/07/16 08:52 Potassium Phosphate (K-Phos) 500 mg Q12HR PO 04/24/16 12:00 05/10/16 08:41 Lactobacillus Acidophilus (Lactinex) 1 tab TID PO 04/24/16 18:00 05/10/16 08:41 Fluconazole (Diflucan) 200 mg DAILY PO 05/01/16 15:45 05/10/16 08:41 Levofloxacin (Levaquin Liq) 500 mg DAILY TUBE 05/02/16 09:00 05/10/16 08:40 Metronidazole (Flagyl) 500 mg Q8HR PO 05/01/16 22:00 05/10/16 06:00 Multi-Ingredient Mouthwash/Gargle (Magic Mouthwash Adult Liq) 5 ml QID SWISH-SWAL 05/01/16 18:00 05/10/16 08:40 Potassium Bicarb/ Potassium Chloride (K-Lyte Cl Eff) 40 meq Q12HR NG 05/04/16 22:00 05/10/16 08:40 Objective Remarks GENERAL: Young man, sitting up in bed in no distress. SKIN: Warm and dry. HEAD: Normocephalic. large tumor right face, with opening in center extending into oral cavity EYES: No injection or drainage. NECK: Supple, trachea midline. CARDIOVASCULAR: Regular rate and rhythm RESPIRATORY: Breath sounds equal bilaterally. No accessory muscle use. GASTROINTESTINAL: Abdomen soft, non-tender, nondistended. EXTREMITIES: No cyanosis NEUROLOGICAL: No obvious focal deficit. Awake and alert. Assessment/Plan Assessment 35y/o male with invasive squamous cell carcinoma receiving weekly carbo/taxol and BID XRT. 04/12/16--XRT started; twice daily. 04/13/16: weekly carbo/taxol dose 1 given 04/21/16: weekly carbo/taxol dose 2 given 04/28/16: weekly carbo/taxol dose 3 given 05/05/16:weekly carbo/taxol dose 4 given 05/12/16: Plan to HOLD this week carbo/taxol Plan 1. There is concern for radiation dermatitis. Per Dr Beaulieu, we will hold XRT on , Sunday and Sunday. Plan to resume on Sunday. 2. While we hold XRT, we will also hold chemotherapy as this is being used as a head knitting machine fixer to radiation. 3. Pain is well controlled with current medications. 4. Continue wound care. Attending Statement The exam, history, and the medical decision-making described in the above note were completed with the assistance of the mid-level provider. I reviewed and agree with the findings presented. I attest that I had a [id number] encounter with the patient on the same day, and personally performed and documented my assessment and findings in the medical record. Although the tumor is smaller it still remains vast and the ability to eradicate the cancer is remote given advanced presentation. Due to toxicity associated with large radiation field he will have radiation held for 3 treatments. Will hold the chemotherapy at the same time. Amy Burris May 10, 2016 10:49 Yovany Lezama MD May 10, 2016 21:12
[2016-05-10 13:00] VITALS: BP 98/64; PULSE 111; RESP 16; TEMP 99.3; O2SAT 97
[2016-05-10] MEDS: ENOXAPARIN SODIUM 30 MG/0.3 ML SYRINGE SQ SCH (14:47)
--- NOTE | 2016-05-10 15:57 | HHI.PR ---
Subjective Subjective Notes Resting in bed Objective Vitals/I&O Vital Signs Date Time Temp Pulse Resp B/P Pulse Ox O2 Delivery O2 Flow Rate FiO2 05/10/16 13:00 99.3 111 16 98/64 97 Labs Laboratory Tests Test 05/10/16 06:10 Sodium Level 133 Potassium Level 4.3 Chloride Level 97 Carbon Dioxide Level 28.4 Anion Gap 8 Blood Urea Nitrogen 18 Creatinine 0.39 Estimat Glomerular Filtration 251 Rate Random Glucose 91 Calcium Level 8.8 Phosphorus Level 2.5 Magnesium Level 1.6 Date/Time Procedure Status Source Growth 05/10/16 08:50 Urine Culture Received Urine Clean Catch Pending 05/10/16 01:20 Aerobic Blood Culture Received Blood Line Pending 05/10/16 01:20 Anaerobic Blood Culture Received Blood Line Pending Cardiovascular: Regular Lungs: Clear Abdomen: Non-distended, Non-tender, Other (PEG in place ) Narrative Exam Face: large RIGHT sided facial malignancy A/P Assessment and Plan 35 year old male with large oropharyngeal cancer -PO Diflucan -Change Levaquin and Flagyl -Plan to resume chemotherapy next week ---management per Oncology -OMFS following for timing of debulking tumor in OR -s/p PEG placement -s/p biopsy of mass -Tolerating bolus feedings I CERTIFY AND ATTEST THAT I PERSONALLY EXAMINED THIS PATIENT. MS AVILES DOCUMENTED OUR VISIT AND ENTERED ORDERS IN THE EMR UNDER MY DIRECT SUPERVISION. I DISCUSSED THE CARE PLAN WITH THE NURSING STAFF AND FAMILY (IF PRESENT). Brittnee Meraz MD, FACS May 10, 2016 15:57 Juan Oseguera MD May 11, 2016 11:52
[2016-05-10 18:00] VITALS: BP 110/60; PULSE 109; RESP 16; TEMP 99.3; O2SAT 99
[2016-05-10] MEDS ORDERED: AMPICILLIN-SULBACTAM INJ 3 GM in SODIUM CHLORIDE 0.9% INJ 100 ML IV SCH (18:00)
[2016-05-10 21:00] VITALS: BP 107/56; PULSE 115; RESP 18; TEMP 97.8; O2SAT 98
[2016-05-10] MEDS: AMPICILLIN-SULBACTAM INJ 3 GM in SODIUM CHLORIDE 0.9% INJ 100 ML IV SCH (21:41)
[2016-05-11] VITALS (7 sets, daily range): BP systolic 97–107; BP diastolic 55–59; PULSE 110–127; RESP 16–19; TEMP 97.1–102.3; O2SAT 97–99
[2016-05-11] MEDS: AMPICILLIN-SULBACTAM INJ 3 GM in SODIUM CHLORIDE 0.9% INJ 100 ML IV SCH ×4 (05:08→23:01)
[2016-05-11] MEDS: FREE WATER G-TUBE SCH ×4 (05:08→23:14)
[2016-05-11] MEDS: metroNIDAZOLE 500 MG TAB PO SCH ×3 (05:08→20:31)
[2016-05-11] MEDS: METOCLOPRAMIDE HCL SYRUP 10 MG/10 ML UDC G-TUBE SCH ×4 (05:09→20:30)
[2016-05-11] MEDS: ACETAMINOPHEN 325 MG TAB PO PRN (05:15)
[2016-05-11] MEDS: MAGNESIUM SULFATE 1 GM PREMIX 100 ML IV SCH ×2 (08:26→09:33)
[2016-05-11] MEDS: MAGNESIUM OXIDE 400 MG TAB GT SCH ×2 (08:29→20:30)
[2016-05-11] MEDS: LACTOBACILLUS ACIDOPHILUS TAB PO SCH ×3 (08:29→17:50)
[2016-05-11] MEDS: POTASSIUM CHLORIDE 25 MEQ EFFERVESCENT TAB NG SCH ×2 (08:29→20:31)
[2016-05-11] MEDS: POTASSIUM PHOSPHATE MONOBASIC 500 MG TAB PO SCH ×2 (08:29→20:30)
[2016-05-11] MEDS: DOCUSATE SODIUM 50 MG/SENNA 8.6 MG TAB G-TUBE SCH ×2 (08:29→20:29)
[2016-05-11] MEDS: FLUCONAZOLE 200 MG TAB PO SCH (08:29)
[2016-05-11] MEDS: POLYETHYLENE GLYCOL 17 GM PKG G-TUBE SCH (08:29)
[2016-05-11] MEDS: SODIUM CHLORIDE 0.9% FLUSH 5 ML FLUSH IVF SCH ×2 (08:30→20:30)
[2016-05-11] MEDS: NYSTAT/DIPHENHY/LIDO MOUTHWASH (Adult) 120ML SWISH-SWAL SCH ×4 (08:31→20:32)
[2016-05-11] MEDS: ACETAMINOPHEN 325MG/HYDROcodone 7.5MG/15ML UDC PO PRN ×2 (11:18→20:28)
--- NOTE | 2016-05-11 11:33 | HHI.PR ---
Subjective Remarks Progress Note for May 10 2016 Oropharynx Carcinoma Stomatitis, Hypercalcemia, Anemia, electrolyte Imbalance, Severe Malnutrition Patient stable in his bedroom, was needed to stop his Chemotherapy yesterday and receiving Chemotherapy today, he has Diagnosis of Invasive Squamous Cell Carcinoma receiving weekly Carbo/Taxol and BID XRT. on hold Chemotherapy and Radiation therapy, on hold radiation therapy for 3 treatments continue Augmentin and Flagyl. his primary attending physician do not consider ID specialist appropriate and the consult was cancelled. Objective Vital Signs Date Time Temp Pulse Resp B/P Pulse Ox O2 Delivery O2 Flow Rate FiO2 05/11/16 06:33 100.1 05/11/16 05:00 101.2 120 18 107/57 98 05/11/16 00:45 97.1 110 18 103/59 98 05/10/16 21:00 97.8 115 18 107/56 98 05/10/16 18:00 99.3 109 16 110/60 99 05/10/16 13:00 99.3 111 16 98/64 97 I/O 05/10/16 05/10/16 05/10/16 05/11/16 05/11/16 05/11/16 07:00 15:00 23:00 07:00 15:00 23:00 Intake Total 0 ml Balance 0 ml Intake Oral 0 ml # Voids 2 1 2 1 Result Diagram: 05/10/16 0610 Imaging Last Impressions Chest X-Ray 05/10/16 0000 Signed Impressions: Service Date/Time: Tuesday, May 10, 2016 00:10 - CONCLUSION: No acute cardiopulmonary process. Demetrio Pressley MD Liver Ultrasound 04/12/16 0000 Signed Impressions: Service Date/Time: Tuesday, April 12, 2016 22:29 - CONCLUSION: 1. Solid indeterminate mass in the left lobe of the liver as well as a tiny cyst. An MRI of the abdomen with without contrast may be helpful for further assessment if felt clinically warranted. The possibility of a metastatic lesion is not excluded. 2. Cholelithiasis. 3. Bilateral pleural effusions are suspected sonographically. Chau Ward MD Chest CT 04/11/16 0000 Signed Impressions: Service Date/Time: Monday, April 11, 2016 14:09 - CONCLUSION: 1. Multiple small scattered noncalcified pulmonary nodules which are nonspecific but are of concern for early metastatic disease. 2. The known large tumor mass in the right side of the face and neck is partially visualized with destructive change involving the right side of the mandible. This extends into the right supraclavicular region. Please see soft tissue neck CT for further details. 3. Low attenuation lesion in the left lobe of the liver again noted. Holland Villegas MD Abdomen/Pelvis CT 04/11/16 0000 Signed Impressions: Service Date/Time: Monday, April 11, 2016 14:09 - CONCLUSION: 1. 1.4 cm low-attenuation lesion left lobe of the liver of concern for a metastasis. There is a smaller more cystic appearing structure in the right lobe. 2. The remainder of the study is unremarkable except for a PEG tube in the stomach. Holland Villegas MD Upper Extremity Ultrasound 04/08/16 0000 Signed Impressions: Service Date/Time: Friday, April 08, 2016 13:04 - CONCLUSION: No thrombus. Deshawn Michele MD Neck CT 04/02/16 0000 Signed Impressions: Service Date/Time: Saturday, April 02, 2016 11:54 - CONCLUSION: Very large heterogeneous soft tissue mass along the right side of the face with gross destruction involving most of the right mandible. The mass contains amorphous calcifications and appears to involve the right sternocleidomastoid muscle. The mass appears to extend into the oral cavity with diffuse enlargement of the right tonsillar pillar. Neoplastic disease in the primary consideration. Niall Corrales MD Multiplanar Reconstruction 04/02/16 0000 Signed Impressions: Service Date/Time: Saturday, April 02, 2016 11:54 - CONCLUSION: 3-D reconstructive images demonstrating destruction involving most the right side of the mandible. Niall Corrales MD Head CT 04/02/16 0000 Signed Impressions: Service Date/Time: Saturday, April 02, 2016 11:54 - CONCLUSION: 1. Unremarkable CT scan of the brain 2. Large abnormal soft tissue mass with calcifications along the right side of the face. Niall Corrales MD Procedures central line placement PEG placement bone biopsy teeth extraction Other Results Laboratory Tests Test 05/08/16 05/10/16 07:20 06:10 Prothrombin Time 13.2 SEC Prothromb Time International 1.2 RATIO Ratio Total Bilirubin 0.2 MG/DL Aspartate Amino Transf 20 U/L (AST/SGOT) Alanine Aminotransferase 22 U/L (ALT/SGPT) Alkaline Phosphatase 120 U/L Total Protein 5.6 GM/DL Albumin 1.6 GM/DL Triglycerides Level 156 MG/DL Sodium Level 133 MEQ/L Potassium Level 4.3 MEQ/L Chloride Level 97 MEQ/L Carbon Dioxide Level 28.4 MEQ/L Anion Gap 8 MEQ/L Blood Urea Nitrogen 18 MG/DL Creatinine 0.39 MG/DL Estimat Glomerular Filtration 251 ML/MIN Rate Random Glucose 91 MG/DL Calcium Level 8.8 MG/DL Phosphorus Level 2.5 MG/DL Magnesium Level 1.6 MG/DL Objective Remarks General: No acute Distress. HEENT: large ulcerating exophytic mass on the right side of the face. mouth is partial shut. Lips cracked. purulent tissue in his mouth. CV RRR. no r/m/g Resp CTA B/L Abd soft NDNT EXT: no edema Medications and IVs Current Medications Medications (Trade) Dose Ordered Sig/Sara Route Start Time Stop Time Status Last Admin (Zofran Inj) 4 mg Q6H PRN IV PUSH 04/02/16 01:45 04/02/16 02:38 (NS Flush) 2 ml UNSCH PRN IVF 04/02/16 08:15 04/17/16 05:08 (NS Flush) 2 ml BID IVF 04/02/16 09:00 05/11/16 08:30 (Benadryl) 25 mg Q6H PRN PO 04/02/16 09:00 04/12/16 04:30 (Lovenox Inj) 30 mg Q24H SQ 04/04/16 15:30 05/11/16 16:31 (Free Water) VOLUME: 200 ML Q6HR G-TUBE 04/04/16 08:45 05/11/16 12:00 (Tylenol) 650 mg Q4H PRN PO 04/07/16 01:45 05/11/16 05:15 (Morphine Inj) 2 mg Q2HR PRN IV PUSH 04/08/16 09:00 (Hycet 325-7.5 Mg Liq) 15 ml Q3HR PRN PO 04/08/16 14:45 05/11/16 11:18 (Colace Liq) 100 mg BID PRN GT 04/15/16 12:15 05/11/16 05:08 (Clara-Colace) 2 tab BID G-TUBE 04/15/16 21:00 05/11/16 08:29 (Lactulose Liq) 30 ml TID PRN G-TUBE 04/15/16 12:15 (Dulcolax Supp) 10 mg DAILY PRN TN 04/15/16 12:15 (Milk Of Magnesia Liq) 30 ml Q6H PRN GT 04/15/16 12:15 (Chapstick) 1 applic UNSCH PRN TOP 04/17/16 10:00 04/18/16 00:01 (Mag-Ox) 800 mg Q12HR GT 04/17/16 21:00 05/11/16 08:29 (Reglan Liq) 10 mg ACHS G-TUBE 04/19/16 16:00 05/11/16 16:31 (Miralax) 17 gm DAILY G-TUBE 04/22/16 09:00 05/11/16 08:29 (K-Phos) 500 mg Q12HR PO 04/24/16 12:00 05/11/16 08:29 (Lactinex) 1 tab TID PO 04/24/16 18:00 05/11/16 14:24 (Benadryl Inj) 25 mg Q4H PRN IV 04/26/16 19:00 (Diflucan) 200 mg DAILY PO 05/01/16 15:45 05/11/16 08:29 (Flagyl) 500 mg Q8HR PO 05/01/16 22:00 05/11/16 14:24 (Magic Mouthwash Adult Liq) 5 ml QID SWISH-SWAL 05/01/16 18:00 05/11/16 14:23 Potassium Bicarb/ Potassium Chloride 40 meq 40 meq Q12HR NG 05/04/16 22:00 05/11/16 08:29 (Unasyn Inj/NS Inj) 100 ml @ 200 mls/hr Q6H IV 05/10/16 22:00 05/11/16 16:31 A/P Assessment and Plan 1. Squamous Cell Carcinoma of Oropharynx, CT of the face showed very large heterogeneous soft tissue mass along the right side of the face with gross destruction involving most of the right mandible. Probable Metastatic Disease to the Abdomen and Lung/Liver. 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 status post Radiation therapy today, recommended by pricing specialist to hold Chemotherapy and also on hold Radiation therapy due to toxicity associated with large radiation field for 3 treatments. general Surgery following. 2. Stomatitis and Mucositis, some otitis on Chemotherapy, continue Magic Mouth Wash 3. Sepsis one bottle of blood cultures, growing Pseudomonas Stutzeri. on Zosyn for 2 weeks Possible right facial wound and central line suspected source. Central line discontinued. was on Levofloxacin switch to Augmentin plus Flagyl and continue Fluconazole. 4. 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 5. Hypercalcemia of malignancy, status post treatment with Aredia. resolved 6. Anemia secondary to Chemotherapy, Status post Blood transfusion. 7. Severe Protein Calorie Malnutrition, status post PEG placement tube feedings 8. Constipation continue Colace, MiraLAX and Lactulose 9. electrolyte derangement given replacement and following. DVT prophylaxis with Lovenox. Continue present care, Following specialist recommendations. discussed with Patient, nurse Miss Ramirez and with his Brother in the room Discharge Planning Not yet cleared by pricing specialist for discharge. Richie Devries MD May 11, 2016 11:33
--- NOTE | 2016-05-11 11:33 | HHI.PR ---
Subjective Remarks Progress Note for May 10 2016 Oropharynx Carcinoma Stomatitis, Hypercalcemia, Anemia, electrolyte Imbalance, Severe Malnutrition Patient stable in his bedroom, was needed to stop his Chemotherapy yesterday and receiving Chemotherapy today, he has Diagnosis of Invasive Squamous Cell Carcinoma receiving weekly Carbo/Taxol and BID XRT. Seen in his bedroom in the presence of his Brother, asked for ID specialist consult, on hold as per market specialist on Hold Carbo/taxol, concern for radiation Dermatitis on Hold Radiation Therapy recommended due to Toxicity associated with large radiation field he will have radiation held for 3 treatments. antibiotic changed to Augmentin plus Flagyl and following ID specialist recommendations. Objective Vital Signs Date Time Temp Pulse Resp B/P Pulse Ox O2 Delivery O2 Flow Rate FiO2 05/11/16 06:33 100.1 05/11/16 05:00 101.2 120 18 107/57 98 05/11/16 00:45 97.1 110 18 103/59 98 05/10/16 21:00 97.8 115 18 107/56 98 05/10/16 18:00 99.3 109 16 110/60 99 05/10/16 13:00 99.3 111 16 98/64 97 I/O 05/10/16 05/10/16 05/10/16 05/11/16 05/11/16 05/11/16 07:00 15:00 23:00 07:00 15:00 23:00 Intake Total 0 ml Balance 0 ml Intake Oral 0 ml # Voids 2 1 2 1 Result Diagram: 05/10/16 0610 Imaging Last Impressions Chest X-Ray 05/10/16 0000 Signed Impressions: Service Date/Time: Tuesday, May 10, 2016 00:10 - CONCLUSION: No acute cardiopulmonary process. Demetrio Pressley MD Liver Ultrasound 04/12/16 0000 Signed Impressions: Service Date/Time: Tuesday, April 12, 2016 22:29 - CONCLUSION: 1. Solid indeterminate mass in the left lobe of the liver as well as a tiny cyst. An MRI of the abdomen with without contrast may be helpful for further assessment if felt clinically warranted. The possibility of a metastatic lesion is not excluded. 2. Cholelithiasis. 3. Bilateral pleural effusions are suspected sonographically. Chau Ward MD Chest CT 04/11/16 0000 Signed Impressions: Service Date/Time: Monday, April 11, 2016 14:09 - CONCLUSION: 1. Multiple small scattered noncalcified pulmonary nodules which are nonspecific but are of concern for early metastatic disease. 2. The known large tumor mass in the right side of the face and neck is partially visualized with destructive change involving the right side of the mandible. This extends into the right supraclavicular region. Please see soft tissue neck CT for further details. 3. Low attenuation lesion in the left lobe of the liver again noted. Holland Villegas MD Abdomen/Pelvis CT 04/11/16 0000 Signed Impressions: Service Date/Time: Monday, April 11, 2016 14:09 - CONCLUSION: 1. 1.4 cm low-attenuation lesion left lobe of the liver of concern for a metastasis. There is a smaller more cystic appearing structure in the right lobe. 2. The remainder of the study is unremarkable except for a PEG tube in the stomach. Holland Villegas MD Upper Extremity Ultrasound 04/08/16 0000 Signed Impressions: Service Date/Time: Friday, April 08, 2016 13:04 - CONCLUSION: No thrombus. Deshawn Michele MD Neck CT 04/02/16 0000 Signed Impressions: Service Date/Time: Saturday, April 02, 2016 11:54 - CONCLUSION: Very large heterogeneous soft tissue mass along the right side of the face with gross destruction involving most of the right mandible. The mass contains amorphous calcifications and appears to involve the right sternocleidomastoid muscle. The mass appears to extend into the oral cavity with diffuse enlargement of the right tonsillar pillar. Neoplastic disease in the primary consideration. Niall Corrales MD Multiplanar Reconstruction 04/02/16 0000 Signed Impressions: Service Date/Time: Saturday, April 02, 2016 11:54 - CONCLUSION: 3-D reconstructive images demonstrating destruction involving most the right side of the mandible. Niall Corrales MD Head CT 04/02/16 0000 Signed Impressions: Service Date/Time: Saturday, April 02, 2016 11:54 - CONCLUSION: 1. Unremarkable CT scan of the brain 2. Large abnormal soft tissue mass with calcifications along the right side of the face. Niall Corrales MD Procedures central line placement PEG placement bone biopsy teeth extraction Other Results Laboratory Tests Test 05/08/16 05/10/16 07:20 06:10 Prothrombin Time 13.2 SEC Prothromb Time International 1.2 RATIO Ratio Total Bilirubin 0.2 MG/DL Aspartate Amino Transf 20 U/L (AST/SGOT) Alanine Aminotransferase 22 U/L (ALT/SGPT) Alkaline Phosphatase 120 U/L Total Protein 5.6 GM/DL Albumin 1.6 GM/DL Triglycerides Level 156 MG/DL Sodium Level 133 MEQ/L Potassium Level 4.3 MEQ/L Chloride Level 97 MEQ/L Carbon Dioxide Level 28.4 MEQ/L Anion Gap 8 MEQ/L Blood Urea Nitrogen 18 MG/DL Creatinine 0.39 MG/DL Estimat Glomerular Filtration 251 ML/MIN Rate Random Glucose 91 MG/DL Calcium Level 8.8 MG/DL Phosphorus Level 2.5 MG/DL Magnesium Level 1.6 MG/DL Objective Remarks General: No acute Distress. HEENT: large ulcerating exophytic mass on the right side of the face. mouth is partial shut. Lips cracked. purulent tissue in his mouth. CV RRR. no r/m/g Resp CTA B/L Abd soft NDNT EXT: no edema Medications and IVs A/P Assessment and Plan 1. Squamous Cell Carcinoma of Oropharynx, CT of the face showed very large heterogeneous soft tissue mass along the right side of the face with gross destruction involving most of the right mandible. Probable Metastatic Disease to the Abdomen and Lung/Liver. 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 status post Radiation therapy today, recommended by market specialist to hold Chemotherapy and also on hold Radiation therapy due to toxicity associated with large radiation field for 3 treatments. general Surgery following. 2. Stomatitis and Mucositis, some otitis on Chemotherapy, continue Magic Mouth Wash 3. Sepsis one bottle of blood cultures, growing Pseudomonas Stutzeri. on Zosyn for 2 weeks Possible right facial wound and central line suspected source. Central line discontinued. was on Levofloxacin switch to Augmentin plus Flagyl and continue Fluconazole. ID specialist consult. 4. 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 5. Hypercalcemia of malignancy, status post treatment with Aredia. resolved 6. Anemia secondary to Chemotherapy, Status post Blood transfusion. 7. Severe Protein Calorie Malnutrition, status post PEG placement tube feedings 8. Constipation continue Colace, MiraLAX and Lactulose 9. electrolyte derangement given replacement and following. DVT prophylaxis with Lovenox. Continue present care, Following specialist recommendations. discussed with Patient, nurse Miss Marcelino and with his Brother in the room Discharge Planning Not yet cleared by market specialist for discharge. Richie Devries MD May 11, 2016 11:32
--- NOTE | 2016-05-11 11:50 | HHI.PR ---
Subjective Subjective Notes Ambulating in hallway with PT Brother concerned that tumor is getting bigger Objective Vitals/I&O Vital Signs Date Time Temp Pulse Resp B/P Pulse Ox O2 Delivery O2 Flow Rate FiO2 05/11/16 06:33 100.1 05/11/16 05:00 120 18 107/57 98 Labs Date/Time Procedure Status Source Growth 05/10/16 08:50 Urine Culture - Preliminary Resulted Urine Clean Catch <10,000 CFU/ML MIXED GRAM POSITIVE FL... 05/10/16 01:20 Aerobic Blood Culture - Preliminary Resulted Blood Line NO GROWTH IN 1 DAY 05/10/16 01:20 Anaerobic Blood Culture - Preliminary Resulted Blood Line NO GROWTH IN 1 DAY Cardiovascular: Regular Lungs: Clear Abdomen: Non-distended, Non-tender, Other (PEG in place with no complications ) Narrative Exam Face: large RIGHT sided facial malignancy A/P Assessment and Plan 35 year old male with large oropharyngeal cancer -Continue antibiotics -Plan to resume chemotherapy next week ---management per Oncology -OMFS following for timing of debulking tumor in OR (possibly next week) -s/p PEG placement -s/p biopsy of mass -Tolerating bolus feedings I certify and attest that I personally examined this patient with Ms. Stapleton who documented our visit in the EMR and entered orders under my direct supervision. I reviewed the care plan with the nursing staff and family if present. HAYDEN WOODS MD FACS Brittnee Stapleton May 11, 2016 11:50 Hayden Woods MD May 24, 2016 14:26
[2016-05-11] MEDS: ENOXAPARIN SODIUM 30 MG/0.3 ML SYRINGE SQ SCH (16:31)
[2016-05-12] VITALS: BP 95/55; PULSE 106; RESP 17; O2SAT 99
[2016-05-12] MEDS: AMPICILLIN-SULBACTAM INJ 3 GM in SODIUM CHLORIDE 0.9% INJ 100 ML IV SCH ×4 (04:21→22:21)
[2016-05-12 05:00] VITALS: BP 113/56; PULSE 120; RESP 19; TEMP 101.8; O2SAT 96
[2016-05-12] MEDS: METOCLOPRAMIDE HCL SYRUP 10 MG/10 ML UDC G-TUBE SCH ×4 (05:39→21:55)
[2016-05-12] MEDS: metroNIDAZOLE 500 MG TAB PO SCH ×3 (05:39→22:00)
[2016-05-12] MEDS: FREE WATER G-TUBE SCH ×3 (05:39→17:30)
[2016-05-12] MEDS: ACETAMINOPHEN 325 MG TAB PO PRN (06:01)
[2016-05-12 08:00] VITALS: BP 100/57; PULSE 101; RESP 16; TEMP 97.7; O2SAT 98
[2016-05-12] MEDS: DOCUSATE SODIUM 50 MG/SENNA 8.6 MG TAB G-TUBE SCH ×2 (08:58→21:00)
[2016-05-12] MEDS: POLYETHYLENE GLYCOL 17 GM PKG G-TUBE SCH (08:58)
[2016-05-12] MEDS: NYSTAT/DIPHENHY/LIDO MOUTHWASH (Adult) 120ML SWISH-SWAL SCH ×4 (08:58→21:00)
[2016-05-12] MEDS: MAGNESIUM OXIDE 400 MG TAB GT SCH ×2 (09:09→21:55)
[2016-05-12] MEDS: POTASSIUM PHOSPHATE MONOBASIC 500 MG TAB PO SCH ×2 (09:09→21:54)
[2016-05-12] MEDS: FLUCONAZOLE 200 MG TAB PO SCH (09:09)
[2016-05-12] MEDS: POTASSIUM CHLORIDE 25 MEQ EFFERVESCENT TAB NG SCH ×2 (09:09→21:56)
[2016-05-12] MEDS: LACTOBACILLUS ACIDOPHILUS TAB PO SCH ×3 (09:09→17:30)
[2016-05-12] MEDS: SODIUM CHLORIDE 0.9% FLUSH 5 ML FLUSH IVF SCH ×2 (09:10→21:54)
[2016-05-12 12:00] VITALS: BP 87/57; PULSE 115; RESP 20; TEMP 98.9; O2SAT 96
--- NOTE | 2016-05-12 12:32 | HHI.PR ---
Subjective Remarks Oropharynx Carcinoma Stomatitis, Hypercalcemia, Anemia, electrolyte Imbalance, Severe Malnutrition Patient stable in his bedroom, was needed to stop his Chemotherapy yesterday and receiving Chemotherapy today, he has Diagnosis of Invasive Squamous Cell Carcinoma receiving weekly Carbo/Taxol and BID XRT. on hold Chemotherapy and Radiation therapy, on hold radiation therapy for 3 treatments continue Augmentin and Flagyl. Seen in his bedroom no new issues. Objective Vital Signs Date Time Temp Pulse Resp B/P Pulse Ox O2 Delivery O2 Flow Rate FiO2 05/12/16 08:00 97.7 101 16 100/57 98 05/12/16 05:00 101.8 120 19 113/56 96 05/12/16 00:00 106 17 95/55 99 05/11/16 23:00 99.4 05/11/16 20:00 102.3 127 19 99/55 97 05/11/16 16:00 97.4 124 18 98/57 99 I/O 05/11/16 05/11/16 05/11/16 05/12/16 05/12/16 05/12/16 07:00 15:00 23:00 07:00 15:00 23:00 Intake Total 1670 ml 0 ml Output Total 400 ml Balance 1270 ml 0 ml Intake Oral 0 ml 0 ml IV Total 350 ml Tube Feeding 720 ml Other 600 ml Output Urine Total 400 ml # Voids 1 1 1 # Bowel Movements 0 0 Result Diagram: 05/10/16 0610 Imaging Last Impressions Chest X-Ray 05/10/16 0000 Signed Impressions: Service Date/Time: Tuesday, May 10, 2016 00:10 - CONCLUSION: No acute cardiopulmonary process. Demetrio Pressley MD Liver Ultrasound 04/12/16 0000 Signed Impressions: Service Date/Time: Tuesday, April 12, 2016 22:29 - CONCLUSION: 1. Solid indeterminate mass in the left lobe of the liver as well as a tiny cyst. An MRI of the abdomen with without contrast may be helpful for further assessment if felt clinically warranted. The possibility of a metastatic lesion is not excluded. 2. Cholelithiasis. 3. Bilateral pleural effusions are suspected sonographically. Chau Ward MD Chest CT 04/11/16 0000 Signed Impressions: Service Date/Time: Monday, April 11, 2016 14:09 - CONCLUSION: 1. Multiple small scattered noncalcified pulmonary nodules which are nonspecific but are of concern for early metastatic disease. 2. The known large tumor mass in the right side of the face and neck is partially visualized with destructive change involving the right side of the mandible. This extends into the right supraclavicular region. Please see soft tissue neck CT for further details. 3. Low attenuation lesion in the left lobe of the liver again noted. Holland Villegas MD Abdomen/Pelvis CT 04/11/16 0000 Signed Impressions: Service Date/Time: Monday, April 11, 2016 14:09 - CONCLUSION: 1. 1.4 cm low-attenuation lesion left lobe of the liver of concern for a metastasis. There is a smaller more cystic appearing structure in the right lobe. 2. The remainder of the study is unremarkable except for a PEG tube in the stomach. Holland Villegas MD Upper Extremity Ultrasound 04/08/16 0000 Signed Impressions: Service Date/Time: Friday, April 08, 2016 13:04 - CONCLUSION: No thrombus. Deshawn Michele MD Neck CT 04/02/16 0000 Signed Impressions: Service Date/Time: Saturday, April 02, 2016 11:54 - CONCLUSION: Very large heterogeneous soft tissue mass along the right side of the face with gross destruction involving most of the right mandible. The mass contains amorphous calcifications and appears to involve the right sternocleidomastoid muscle. The mass appears to extend into the oral cavity with diffuse enlargement of the right tonsillar pillar. Neoplastic disease in the primary consideration. Niall Corrales MD Multiplanar Reconstruction 04/02/16 0000 Signed Impressions: Service Date/Time: Saturday, April 02, 2016 11:54 - CONCLUSION: 3-D reconstructive images demonstrating destruction involving most the right side of the mandible. Niall Corrales MD Head CT 04/02/16 0000 Signed Impressions: Service Date/Time: Saturday, April 02, 2016 11:54 - CONCLUSION: 1. Unremarkable CT scan of the brain 2. Large abnormal soft tissue mass with calcifications along the right side of the face. Niall Corrales MD Procedures central line placement PEG placement bone biopsy teeth extraction Other Results Laboratory Tests Test 05/08/16 05/10/16 07:20 06:10 Prothrombin Time 13.2 SEC Prothromb Time International 1.2 RATIO Ratio Total Bilirubin 0.2 MG/DL Aspartate Amino Transf 20 U/L (AST/SGOT) Alanine Aminotransferase 22 U/L (ALT/SGPT) Alkaline Phosphatase 120 U/L Total Protein 5.6 GM/DL Albumin 1.6 GM/DL Triglycerides Level 156 MG/DL Sodium Level 133 MEQ/L Potassium Level 4.3 MEQ/L Chloride Level 97 MEQ/L Carbon Dioxide Level 28.4 MEQ/L Anion Gap 8 MEQ/L Blood Urea Nitrogen 18 MG/DL Creatinine 0.39 MG/DL Estimat Glomerular Filtration 251 ML/MIN Rate Random Glucose 91 MG/DL Calcium Level 8.8 MG/DL Phosphorus Level 2.5 MG/DL Magnesium Level 1.6 MG/DL Objective Remarks General: No acute Distress. HEENT: large ulcerating exophytic mass on the right side of the face. mouth is partial shut. Lips cracked. purulent tissue in his mouth. CV RRR. no r/m/g Resp CTA B/L Abd soft NDNT EXT: no edema Medications and IVs Current Medications Medications (Trade) Dose Ordered Sig/Sara Route Start Time Stop Time Status Last Admin (Zofran Inj) 4 mg Q6H PRN IV PUSH 04/02/16 01:45 04/02/16 02:38 (NS Flush) 2 ml UNSCH PRN IVF 04/02/16 08:15 04/17/16 05:08 (NS Flush) 2 ml BID IVF 04/02/16 09:00 05/12/16 09:10 (Benadryl) 25 mg Q6H PRN PO 04/02/16 09:00 04/12/16 04:30 (Lovenox Inj) 30 mg Q24H SQ 04/04/16 15:30 05/11/16 16:31 (Free Water) VOLUME: 200 ML Q6HR G-TUBE 04/04/16 08:45 05/12/16 05:39 (Tylenol) 650 mg Q4H PRN PO 04/07/16 01:45 05/12/16 06:01 (Morphine Inj) 2 mg Q2HR PRN IV PUSH 04/08/16 09:00 (Hycet 325-7.5 Mg Liq) 15 ml Q3HR PRN PO 04/08/16 14:45 05/11/16 20:28 (Colace Liq) 100 mg BID PRN GT 04/15/16 12:15 05/11/16 05:08 (Clara-Colace) 2 tab BID G-TUBE 04/15/16 21:00 05/11/16 20:29 (Lactulose Liq) 30 ml TID PRN G-TUBE 04/15/16 12:15 (Dulcolax Supp) 10 mg DAILY PRN PA 04/15/16 12:15 (Milk Of Magnesia Liq) 30 ml Q6H PRN GT 04/15/16 12:15 (Chapstick) 1 applic UNSCH PRN TOP 04/17/16 10:00 04/18/16 00:01 (Mag-Ox) 800 mg Q12HR GT 04/17/16 21:00 05/12/16 09:09 (Reglan Liq) 10 mg ACHS G-TUBE 04/19/16 16:00 05/12/16 05:39 (Miralax) 17 gm DAILY G-TUBE 04/22/16 09:00 05/11/16 08:29 (K-Phos) 500 mg Q12HR PO 04/24/16 12:00 05/12/16 09:09 (Lactinex) 1 tab TID PO 04/24/16 18:00 05/12/16 09:09 (Benadryl Inj) 25 mg Q4H PRN IV 04/26/16 19:00 (Diflucan) 200 mg DAILY PO 05/01/16 15:45 05/12/16 09:09 (Flagyl) 500 mg Q8HR PO 05/01/16 22:00 05/12/16 05:39 (Magic Mouthwash Adult Liq) 5 ml QID SWISH-SWAL 05/01/16 18:00 05/11/16 14:23 Potassium Bicarb/ Potassium Chloride 40 meq 40 meq Q12HR NG 05/04/16 22:00 05/12/16 09:09 (Unasyn Inj/NS Inj) 100 ml @ 200 mls/hr Q6H IV 05/10/16 22:00 05/12/16 09:10 A/P Assessment and Plan 1. Squamous Cell Carcinoma of Oropharynx, CT of the face showed very large heterogeneous soft tissue mass along the right side of the face with gross destruction involving most of the right mandible. Probable Metastatic Disease to the Abdomen and Lung/Liver. 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 status post Radiation therapy today, recommended by renewals specialist to hold Chemotherapy and also on hold Radiation therapy due to toxicity associated with large radiation field for 3 treatments. general Surgery following. 2. Stomatitis and Mucositis, some otitis on Chemotherapy, continue Magic Mouth Wash 3. Sepsis one bottle of blood cultures, growing Pseudomonas Stutzeri. on Zosyn for 2 weeks Possible right facial wound and central line suspected source. Central line discontinued. was on Levofloxacin switch to Augmentin plus Flagyl and continue Fluconazole. 4. 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 5. Hypercalcemia of malignancy, status post treatment with Aredia. resolved 6. Anemia secondary to Chemotherapy, Status post Blood transfusion. 7. Severe Protein Calorie Malnutrition, status post PEG placement tube feedings 8. Constipation continue Colace, MiraLAX and Lactulose 9. electrolyte derangement given replacement and following. DVT prophylaxis with Lovenox. Continue present care, Following specialist recommendations. discussed with Patient, nurse Miss Miss Marcelino and his Brother in the room. Discharge Planning Not yet cleared by renewals specialist for discharge. Richie Devries MD May 12, 2016 12:32 Not yet cleared by renewals specialist for discharge. Richie Devries MD May 12, 2016 12:32
[2016-05-12] MEDS: ENOXAPARIN SODIUM 30 MG/0.3 ML SYRINGE SQ SCH (14:33)
[2016-05-12 16:00] VITALS: BP 94/50; PULSE 120; RESP 18; TEMP 100.5; O2SAT 97
[2016-05-12] MEDS: ACETAMINOPHEN 325MG/HYDROcodone 7.5MG/15ML UDC PO PRN (17:32)
[2016-05-12 20:00] VITALS: BP 139/97; PULSE 113; RESP 16; TEMP 96.8; O2SAT 99
[2016-05-13] VITALS: BP 119/66; PULSE 110; RESP 17; TEMP 98.2; O2SAT 100
[2016-05-13 04:00] VITALS: BP 146/95; PULSE 125; RESP 17; TEMP 99.1; O2SAT 97
[2016-05-13] MEDS: AMPICILLIN-SULBACTAM INJ 3 GM in SODIUM CHLORIDE 0.9% INJ 100 ML IV SCH ×4 (05:39→21:20)
[2016-05-13] MEDS: metroNIDAZOLE 500 MG TAB PO SCH ×3 (05:40→21:19)
[2016-05-13] MEDS: METOCLOPRAMIDE HCL SYRUP 10 MG/10 ML UDC G-TUBE SCH ×4 (05:43→20:59)
[2016-05-13] MEDS: ACETAMINOPHEN 325MG/HYDROcodone 7.5MG/15ML UDC PO PRN ×2 (05:46→21:19)
[2016-05-13] MEDS: FREE WATER G-TUBE SCH ×5 (05:51→23:00)
[2016-05-13] MEDS: NYSTAT/DIPHENHY/LIDO MOUTHWASH (Adult) 120ML SWISH-SWAL SCH ×4 (06:57→21:18)
[2016-05-13] MEDS: DOCUSATE SODIUM 50 MG/SENNA 8.6 MG TAB G-TUBE SCH ×2 (06:57→20:59)
[2016-05-13] MEDS: POLYETHYLENE GLYCOL 17 GM PKG G-TUBE SCH (06:57)
[2016-05-13 07:50] VITALS: BP 102/63; PULSE 102; RESP 20; TEMP 97.8; O2SAT 98
[2016-05-13] MEDS: SODIUM CHLORIDE 0.9% FLUSH 5 ML FLUSH IVF SCH ×2 (09:23→21:00)
[2016-05-13] MEDS: POTASSIUM PHOSPHATE MONOBASIC 500 MG TAB PO SCH ×2 (09:23→21:00)
[2016-05-13] MEDS: POTASSIUM CHLORIDE 25 MEQ EFFERVESCENT TAB NG SCH ×2 (09:23→20:59)
[2016-05-13] MEDS: FLUCONAZOLE 200 MG TAB PO SCH (09:23)
[2016-05-13] MEDS: MAGNESIUM OXIDE 400 MG TAB GT SCH ×2 (09:23→21:00)
[2016-05-13] MEDS: LACTOBACILLUS ACIDOPHILUS TAB PO SCH ×3 (09:24→18:12)
[2016-05-13 11:50] VITALS: BP 101/64; PULSE 106; RESP 20; TEMP 98.1; O2SAT 99
[2016-05-13] MEDS: ENOXAPARIN SODIUM 30 MG/0.3 ML SYRINGE SQ SCH (14:36)
--- NOTE | 2016-05-13 15:34 | HHI.PR ---
Subjective Remarks Oropharynx Carcinoma Stomatitis, Hypercalcemia, Anemia, electrolyte Imbalance, Severe Malnutrition Patient stable in his bedroom, was needed to stop his Chemotherapy yesterday and receiving Chemotherapy today, he has Diagnosis of Invasive Squamous Cell Carcinoma receiving weekly Carbo/Taxol and BID XRT. on hold Chemotherapy and Radiation therapy, on hold radiation therapy for 3 treatments continue Augmentin and Flagyl. Seen in his bedroom continue management as per plant specialist and Surgical team, no nausea, vomit or diarrhea, afebrile. Objective Vital Signs Date Time Temp Pulse Resp B/P Pulse Ox O2 Delivery O2 Flow Rate FiO2 05/13/16 11:50 98.1 106 20 101/64 99 05/13/16 07:50 97.8 102 20 102/63 98 05/13/16 07:04 16 05/13/16 04:00 99.1 125 17 146/95 97 05/13/16 00:00 98.2 110 17 119/66 100 05/12/16 20:00 96.8 113 16 139/97 99 05/12/16 16:00 100.5 120 18 94/50 97 I/O 05/12/16 05/12/16 05/12/16 05/13/16 05/13/16 05/13/16 07:00 15:00 23:00 07:00 15:00 23:00 Intake Total 0 ml 0 ml 780 ml Balance 0 ml 0 ml 780 ml Intake Oral 0 ml 0 ml Tube Feeding 480 ml Other 300 ml # Voids 1 5 2 1 # Bowel Movements 0 Result Diagram: 05/10/16 0610 Imaging Last Impressions Chest X-Ray 05/10/16 0000 Signed Impressions: Service Date/Time: Tuesday, May 10, 2016 00:10 - CONCLUSION: No acute cardiopulmonary process. Demetrio Pressley MD Liver Ultrasound 04/12/16 0000 Signed Impressions: Service Date/Time: Tuesday, April 12, 2016 22:29 - CONCLUSION: 1. Solid indeterminate mass in the left lobe of the liver as well as a tiny cyst. An MRI of the abdomen with without contrast may be helpful for further assessment if felt clinically warranted. The possibility of a metastatic lesion is not excluded. 2. Cholelithiasis. 3. Bilateral pleural effusions are suspected sonographically. Chau Ward MD Chest CT 04/11/16 0000 Signed Impressions: Service Date/Time: Monday, April 11, 2016 14:09 - CONCLUSION: 1. Multiple small scattered noncalcified pulmonary nodules which are nonspecific but are of concern for early metastatic disease. 2. The known large tumor mass in the right side of the face and neck is partially visualized with destructive change involving the right side of the mandible. This extends into the right supraclavicular region. Please see soft tissue neck CT for further details. 3. Low attenuation lesion in the left lobe of the liver again noted. Holland Villegas MD Abdomen/Pelvis CT 04/11/16 0000 Signed Impressions: Service Date/Time: Monday, April 11, 2016 14:09 - CONCLUSION: 1. 1.4 cm low-attenuation lesion left lobe of the liver of concern for a metastasis. There is a smaller more cystic appearing structure in the right lobe. 2. The remainder of the study is unremarkable except for a PEG tube in the stomach. Holland Villegas MD Upper Extremity Ultrasound 04/08/16 0000 Signed Impressions: Service Date/Time: Friday, April 08, 2016 13:04 - CONCLUSION: No thrombus. Deshawn Michele MD Neck CT 04/02/16 0000 Signed Impressions: Service Date/Time: Saturday, April 02, 2016 11:54 - CONCLUSION: Very large heterogeneous soft tissue mass along the right side of the face with gross destruction involving most of the right mandible. The mass contains amorphous calcifications and appears to involve the right sternocleidomastoid muscle. The mass appears to extend into the oral cavity with diffuse enlargement of the right tonsillar pillar. Neoplastic disease in the primary consideration. Niall Corrales MD Multiplanar Reconstruction 04/02/16 0000 Signed Impressions: Service Date/Time: Saturday, April 02, 2016 11:54 - CONCLUSION: 3-D reconstructive images demonstrating destruction involving most the right side of the mandible. Niall Corrales MD Head CT 04/02/16 0000 Signed Impressions: Service Date/Time: Saturday, April 02, 2016 11:54 - CONCLUSION: 1. Unremarkable CT scan of the brain 2. Large abnormal soft tissue mass with calcifications along the right side of the face. Niall Corrales MD Procedures central line placement PEG placement bone biopsy teeth extraction Other Results Laboratory Tests Test 05/10/16 06:10 Sodium Level 133 MEQ/L Potassium Level 4.3 MEQ/L Chloride Level 97 MEQ/L Carbon Dioxide Level 28.4 MEQ/L Anion Gap 8 MEQ/L Blood Urea Nitrogen 18 MG/DL Creatinine 0.39 MG/DL Estimat Glomerular Filtration 251 ML/MIN Rate Random Glucose 91 MG/DL Calcium Level 8.8 MG/DL Phosphorus Level 2.5 MG/DL Magnesium Level 1.6 MG/DL Objective Remarks General: No acute Distress. HEENT: large ulcerating exophytic mass on the right side of the face. mouth is partial shut. Lips cracked. purulent tissue in his mouth. CV RRR. no r/m/g Resp CTA B/L Abd soft NDNT EXT: no edema Medications and IVs Current Medications Medications (Trade) Dose Ordered Sig/Sara Route Start Time Stop Time Status Last Admin (Zofran Inj) 4 mg Q6H PRN IV PUSH 04/02/16 01:45 04/02/16 02:38 (NS Flush) 2 ml UNSCH PRN IVF 04/02/16 08:15 04/17/16 05:08 (NS Flush) 2 ml BID IVF 04/02/16 09:00 05/13/16 09:23 (Benadryl) 25 mg Q6H PRN PO 04/02/16 09:00 04/12/16 04:30 (Lovenox Inj) 30 mg Q24H SQ 04/04/16 15:30 05/13/16 14:36 (Free Water) VOLUME: 200 ML Q6HR G-TUBE 04/04/16 08:45 05/13/16 11:27 (Tylenol) 650 mg Q4H PRN PO 04/07/16 01:45 05/12/16 06:01 (Morphine Inj) 2 mg Q2HR PRN IV PUSH 04/08/16 09:00 (Hycet 325-7.5 Mg Liq) 15 ml Q3HR PRN PO 04/08/16 14:45 05/13/16 05:46 (Colace Liq) 100 mg BID PRN GT 04/15/16 12:15 05/11/16 05:08 (Clara-Colace) 2 tab BID G-TUBE 04/15/16 21:00 05/11/16 20:29 (Lactulose Liq) 30 ml TID PRN G-TUBE 04/15/16 12:15 (Dulcolax Supp) 10 mg DAILY PRN OR 04/15/16 12:15 (Milk Of Magnesia Liq) 30 ml Q6H PRN GT 04/15/16 12:15 (Chapstick) 1 applic UNSCH PRN TOP 04/17/16 10:00 04/18/16 00:01 (Mag-Ox) 800 mg Q12HR GT 04/17/16 21:00 05/13/16 09:23 (Reglan Liq) 10 mg ACHS G-TUBE 04/19/16 16:00 05/13/16 11:36 (Miralax) 17 gm DAILY G-TUBE 04/22/16 09:00 05/11/16 08:29 (K-Phos) 500 mg Q12HR PO 04/24/16 12:00 05/13/16 09:23 (Lactinex) 1 tab TID PO 04/24/16 18:00 05/13/16 11:39 (Benadryl Inj) 25 mg Q4H PRN IV 04/26/16 19:00 (Diflucan) 200 mg DAILY PO 05/01/16 15:45 05/13/16 09:23 (Flagyl) 500 mg Q8HR PO 05/01/16 22:00 05/13/16 14:35 (Magic Mouthwash Adult Liq) 5 ml QID SWISH-SWAL 05/01/16 18:00 05/12/16 17:30 Potassium Bicarb/ Potassium Chloride 40 meq 40 meq Q12HR NG 05/04/16 22:00 05/13/16 09:23 (Unasyn Inj/NS Inj) 100 ml @ 200 mls/hr Q6H IV 05/10/16 22:00 05/13/16 11:37 A/P Assessment and Plan 1. Squamous Cell Carcinoma of Oropharynx, CT of the face showed very large heterogeneous soft tissue mass along the right side of the face with gross destruction involving most of the right mandible. Probable Metastatic Disease to the Abdomen and Lung/Liver. 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 status post Radiation therapy today, recommended by plant specialist to hold Chemotherapy and also on hold Radiation therapy due to toxicity associated with large radiation field for 3 treatments. general Surgery following. 2. Stomatitis and Mucositis, some otitis on Chemotherapy, continue Magic Mouth Wash 3. Sepsis one bottle of blood cultures, growing Pseudomonas Stutzeri. right facial wound and central line suspected source. Central line discontinued. was on Levofloxacin switched to Augmentin plus Flagyl and continue Fluconazole. 4. 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 5. Hypercalcemia of malignancy, status post treatment with Aredia. resolved 6. Anemia secondary to Chemotherapy, Status post Blood transfusion. 7. Severe Protein Calorie Malnutrition, status post PEG placement tube feedings 8. Constipation continue Colace, MiraLAX and Lactulose 9. electrolyte derangement given replacement and following. DVT prophylaxis with Lovenox. Continue present care, Following specialist recommendations. discussed with Patient, nurse Miss Miss Roselia caputo, his brother in the room. Discharge Planning Not yet cleared by plant specialist for discharge. Richie Devries MD May 13, 2016 15:34
[2016-05-13 15:50] VITALS: BP 113/60; PULSE 114; RESP 20; TEMP 98.9; O2SAT 98
[2016-05-13 20:00] VITALS: BP 104/59; PULSE 115; RESP 16; TEMP 100.2; O2SAT 98
[2016-05-14] VITALS: BP 101/56; PULSE 113; RESP 16; TEMP 98.8; O2SAT 98
[2016-05-14] MEDS: AMPICILLIN-SULBACTAM INJ 3 GM in SODIUM CHLORIDE 0.9% INJ 100 ML IV SCH ×4 (03:37→22:36)
[2016-05-14 04:00] VITALS: BP 101/57; PULSE 110; RESP 16; TEMP 96.1; O2SAT 99
[2016-05-14] MEDS: METOCLOPRAMIDE HCL SYRUP 10 MG/10 ML UDC G-TUBE SCH ×4 (05:33→19:42)
[2016-05-14] MEDS: metroNIDAZOLE 500 MG TAB PO SCH ×3 (05:34→22:34)
[2016-05-14] MEDS: FREE WATER G-TUBE SCH ×3 (05:41→18:00)
[2016-05-14 07:50] VITALS: BP 99/55; PULSE 121; RESP 20; TEMP 99; O2SAT 96
[2016-05-14] MEDS: POLYETHYLENE GLYCOL 17 GM PKG G-TUBE SCH (08:27)
[2016-05-14] MEDS: POTASSIUM PHOSPHATE MONOBASIC 500 MG TAB PO SCH ×2 (08:27→19:42)
[2016-05-14] MEDS: POTASSIUM CHLORIDE 25 MEQ EFFERVESCENT TAB NG SCH ×2 (08:27→19:38)
[2016-05-14] MEDS: MAGNESIUM OXIDE 400 MG TAB GT SCH ×2 (08:28→19:42)
[2016-05-14] MEDS: LACTOBACILLUS ACIDOPHILUS TAB PO SCH ×3 (08:28→18:00)
[2016-05-14] MEDS: FLUCONAZOLE 200 MG TAB PO SCH (08:28)
--- NOTE | 2016-05-14 08:37 | HHI.PR ---
Subjective Remarks Oropharynx Carcinoma Stomatitis, Hypercalcemia, Anemia, electrolyte Imbalance, Severe Malnutrition Patient stable in his bedroom, was needed to stop his Chemotherapy yesterday and receiving Chemotherapy today, he has Diagnosis of Invasive Squamous Cell Carcinoma receiving weekly Carbo/Taxol and BID XRT. on hold Chemotherapy and Radiation therapy, on hold radiation therapy for 3 treatments continue Augmentin and Flagyl. Discussed at this time with patient and his Brother in the room, has complications related to Radiation therapy, important mucositis, improving purulent in oral cavity. Objective Vital Signs Date Time Temp Pulse Resp B/P Pulse Ox O2 Delivery O2 Flow Rate FiO2 05/14/16 04:00 96.1 110 16 101/57 99 05/14/16 00:00 98.8 113 16 101/56 98 05/13/16 20:00 100.2 115 16 104/59 98 05/13/16 15:50 98.9 114 20 113/60 98 05/13/16 11:50 98.1 106 20 101/64 99 I/O 05/13/16 05/13/16 05/13/16 05/14/16 05/14/16 05/14/16 07:00 15:00 23:00 07:00 15:00 23:00 Intake Total 0 ml 780 ml 450 ml Balance 0 ml 780 ml 450 ml Intake Oral 0 ml 0 ml Tube Feeding 480 ml 250 ml Other 300 ml 200 ml # Voids 1 5 2 1 # Bowel Movements 0 Result Diagram: 05/10/16 0610 Imaging Last Impressions Chest X-Ray 05/10/16 0000 Signed Impressions: Service Date/Time: Tuesday, May 10, 2016 00:10 - CONCLUSION: No acute cardiopulmonary process. Demetrio Pressley MD Liver Ultrasound 04/12/16 0000 Signed Impressions: Service Date/Time: Tuesday, April 12, 2016 22:29 - CONCLUSION: 1. Solid indeterminate mass in the left lobe of the liver as well as a tiny cyst. An MRI of the abdomen with without contrast may be helpful for further assessment if felt clinically warranted. The possibility of a metastatic lesion is not excluded. 2. Cholelithiasis. 3. Bilateral pleural effusions are suspected sonographically. Chau Ward MD Chest CT 04/11/16 0000 Signed Impressions: Service Date/Time: Monday, April 11, 2016 14:09 - CONCLUSION: 1. Multiple small scattered noncalcified pulmonary nodules which are nonspecific but are of concern for early metastatic disease. 2. The known large tumor mass in the right side of the face and neck is partially visualized with destructive change involving the right side of the mandible. This extends into the right supraclavicular region. Please see soft tissue neck CT for further details. 3. Low attenuation lesion in the left lobe of the liver again noted. Holland Villegas MD Abdomen/Pelvis CT 04/11/16 0000 Signed Impressions: Service Date/Time: Monday, April 11, 2016 14:09 - CONCLUSION: 1. 1.4 cm low-attenuation lesion left lobe of the liver of concern for a metastasis. There is a smaller more cystic appearing structure in the right lobe. 2. The remainder of the study is unremarkable except for a PEG tube in the stomach. Holland Villegas MD Upper Extremity Ultrasound 04/08/16 0000 Signed Impressions: Service Date/Time: Friday, April 08, 2016 13:04 - CONCLUSION: No thrombus. Deshawn Michele MD Neck CT 04/02/16 0000 Signed Impressions: Service Date/Time: Saturday, April 02, 2016 11:54 - CONCLUSION: Very large heterogeneous soft tissue mass along the right side of the face with gross destruction involving most of the right mandible. The mass contains amorphous calcifications and appears to involve the right sternocleidomastoid muscle. The mass appears to extend into the oral cavity with diffuse enlargement of the right tonsillar pillar. Neoplastic disease in the primary consideration. Niall Corrales MD Multiplanar Reconstruction 04/02/16 0000 Signed Impressions: Service Date/Time: Saturday, April 02, 2016 11:54 - CONCLUSION: 3-D reconstructive images demonstrating destruction involving most the right side of the mandible. Niall Corrales MD Head CT 04/02/16 0000 Signed Impressions: Service Date/Time: Saturday, April 02, 2016 11:54 - CONCLUSION: 1. Unremarkable CT scan of the brain 2. Large abnormal soft tissue mass with calcifications along the right side of the face. Niall Corrales MD Procedures central line placement PEG placement bone biopsy teeth extraction Other Results Laboratory Tests Test 05/10/16 06:10 Sodium Level 133 MEQ/L Potassium Level 4.3 MEQ/L Chloride Level 97 MEQ/L Carbon Dioxide Level 28.4 MEQ/L Anion Gap 8 MEQ/L Blood Urea Nitrogen 18 MG/DL Creatinine 0.39 MG/DL Estimat Glomerular Filtration 251 ML/MIN Rate Random Glucose 91 MG/DL Calcium Level 8.8 MG/DL Phosphorus Level 2.5 MG/DL Magnesium Level 1.6 MG/DL Objective Remarks General: No acute Distress. HEENT: large ulcerating exophytic mass on the right side of the face. mouth is partial shut. Lips cracked. purulent tissue in his mouth but improving. CV RRR. no r/m/g Resp CTA B/L Abd soft NDNT EXT: no edema Medications and IVs Current Medications Medications (Trade) Dose Ordered Sig/Sara Route Start Time Stop Time Status Last Admin (Zofran Inj) 4 mg Q6H PRN IV PUSH 04/02/16 01:45 04/02/16 02:38 (NS Flush) 2 ml UNSCH PRN IVF 04/02/16 08:15 04/17/16 05:08 (NS Flush) 2 ml BID IVF 04/02/16 09:00 05/13/16 21:00 (Benadryl) 25 mg Q6H PRN PO 04/02/16 09:00 04/12/16 04:30 (Lovenox Inj) 30 mg Q24H SQ 04/04/16 15:30 05/13/16 14:36 (Free Water) VOLUME: 200 ML Q6HR G-TUBE 04/04/16 08:45 05/14/16 05:41 (Tylenol) 650 mg Q4H PRN PO 04/07/16 01:45 05/12/16 06:01 (Morphine Inj) 2 mg Q2HR PRN IV PUSH 04/08/16 09:00 (Hycet 325-7.5 Mg Liq) 15 ml Q3HR PRN PO 04/08/16 14:45 05/13/16 21:19 (Colace Liq) 100 mg BID PRN GT 04/15/16 12:15 05/11/16 05:08 (Clara-Colace) 2 tab BID G-TUBE 04/15/16 21:00 05/13/16 20:59 (Lactulose Liq) 30 ml TID PRN G-TUBE 04/15/16 12:15 (Dulcolax Supp) 10 mg DAILY PRN MN 04/15/16 12:15 (Milk Of Magnesia Liq) 30 ml Q6H PRN GT 04/15/16 12:15 (Chapstick) 1 applic UNSCH PRN TOP 04/17/16 10:00 04/18/16 00:01 (Mag-Ox) 800 mg Q12HR GT 04/17/16 21:00 05/13/16 21:00 (Reglan Liq) 10 mg ACHS G-TUBE 04/19/16 16:00 05/14/16 05:33 (Miralax) 17 gm DAILY G-TUBE 04/22/16 09:00 05/11/16 08:29 (K-Phos) 500 mg Q12HR PO 04/24/16 12:00 05/13/16 21:00 (Lactinex) 1 tab TID PO 04/24/16 18:00 05/13/16 18:12 (Benadryl Inj) 25 mg Q4H PRN IV 04/26/16 19:00 (Diflucan) 200 mg DAILY PO 05/01/16 15:45 05/13/16 09:23 (Flagyl) 500 mg Q8HR PO 05/01/16 22:00 05/14/16 05:34 (Magic Mouthwash Adult Liq) 5 ml QID SWISH-SWAL 05/01/16 18:00 05/13/16 21:18 Potassium Bicarb/ Potassium Chloride 40 meq 40 meq Q12HR NG 05/04/16 22:00 05/13/16 20:59 (Unasyn Inj/NS Inj) 100 ml @ 200 mls/hr Q6H IV 05/10/16 22:00 05/14/16 03:37 A/P Assessment and Plan 1. Squamous Cell Carcinoma of Oropharynx, CT of the face showed very large heterogeneous soft tissue mass along the right side of the face with gross destruction involving most of the right mandible. Probable Metastatic Disease to the Abdomen and Lung/Liver. 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 status post Radiation therapy today, recommended by interior specialist to hold Chemotherapy and also on hold Radiation therapy due to toxicity associated with large radiation field for 3 treatments. general Surgery following. 2. Stomatitis and Mucositis, some otitis on Chemotherapy, continue Magic Mouth Wash 3. Sepsis one bottle of blood cultures, growing Pseudomonas Stutzeri. right facial wound and central line suspected source. Central line discontinued. was on Levofloxacin switched to Augmentin plus Flagyl and continue Fluconazole. Antibiotics handled by Attending physician, do not want ID specialist on the case. 4. 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 5. Hypercalcemia of malignancy, status post treatment with Aredia. resolved 6. Anemia secondary to Chemotherapy, Status post Blood transfusion. Hemoglobin 8.5 7. Severe Protein Calorie Malnutrition, status post PEG placement tube feedings 8. Constipation continue Colace, MiraLAX and Lactulose 9. electrolyte derangement replaced. DVT prophylaxis with Lovenox. Continue present care discussed with Patient, nurse Miss Miss Roselia caputo, his brother in the room. Discharge Planning As per Attending physician. Richie Devries MD May 14, 2016 08:37
[2016-05-14] MEDS: NYSTAT/DIPHENHY/LIDO MOUTHWASH (Adult) 120ML SWISH-SWAL SCH ×4 (09:00→22:36)
[2016-05-14] MEDS: DOCUSATE SODIUM 50 MG/SENNA 8.6 MG TAB G-TUBE SCH ×2 (09:00→19:42)
[2016-05-14] MEDS: SODIUM CHLORIDE 0.9% FLUSH 5 ML FLUSH IVF SCH ×2 (09:00→19:42)
[2016-05-14 11:30] VITALS: BP 130/64; PULSE 112; RESP 20; TEMP 100.2; O2SAT 96
[2016-05-14] MEDS ORDERED: SODIUM CHLORID 0.9% 500 ML INJ 500 ML IV ONE (11:45)
[2016-05-14] MEDS: ACETAMINOPHEN 325MG/HYDROcodone 7.5MG/15ML UDC PO PRN ×2 (12:48→23:09)
[2016-05-14] MEDS: ENOXAPARIN SODIUM 30 MG/0.3 ML SYRINGE SQ SCH (15:30)
[2016-05-14 15:50] VITALS: BP 113/60; PULSE 103; RESP 20; TEMP 97.9; O2SAT 99
[2016-05-14 20:00] VITALS: BP 104/51; PULSE 116; RESP 16; TEMP 97.9; O2SAT 97
[2016-05-15] VITALS: BP 130/69; PULSE 134; RESP 16; TEMP 99.8; O2SAT 97
[2016-05-15] MEDS: AMPICILLIN-SULBACTAM INJ 3 GM in SODIUM CHLORIDE 0.9% INJ 100 ML IV SCH ×4 (03:53→20:50)
[2016-05-15 04:00] VITALS: BP 118/60; PULSE 108; RESP 16; TEMP 98.4; O2SAT 98
[2016-05-15] MEDS: METOCLOPRAMIDE HCL SYRUP 10 MG/10 ML UDC G-TUBE SCH ×4 (05:41→20:49)
[2016-05-15] MEDS: metroNIDAZOLE 500 MG TAB PO SCH ×3 (05:41→20:51)
[2016-05-15] MEDS: FREE WATER G-TUBE SCH ×4 (05:50→18:25)
[2016-05-15 07:06] LABS: INTERNATIONAL NORMALIZED RATIO 1.4 RATIO; PROTHROMBIN TIME - PATIENT 15.4 SEC (9.8-11.6)
[2016-05-15 07:29] LABS: ALT (GPT) 15 U/L (12-78); ANION GAP 9 MEQ/L (5-15); AST (GOT) 15 U/L (15-37); BICARBONATE 29.2 MEQ/L (21.0-32.0); BLOOD UREA NITROGEN 11 MG/DL (7-18); CHLORIDE 99 MEQ/L (98-107); GLOMERULAR FILTRATION RATE 258 ML/MIN (>89); MAGNESIUM 1.4 MG/DL (1.5-2.5); POTASSIUM 3.8 MEQ/L (3.5-5.1); SODIUM (NA) 137 MEQ/L (136-145)
[2016-05-15 07:30] LABS: ALKALINE PHOSPHATASE 117 U/L (45-117); TOTAL BILIRUBIN ADULT 0.3 MG/DL (0.2-1.0)
[2016-05-15 08:00] VITALS: BP 105/61; PULSE 110; RESP 16; TEMP 97.2; O2SAT 98
--- NOTE | 2016-05-15 08:18 | HHI.PR ---
Subjective Remarks Oropharynx Carcinoma Stomatitis, Hypercalcemia, Anemia, electrolyte Imbalance, Severe Malnutrition Patient stable in his bedroom, was needed to stop his Chemotherapy yesterday and receiving Chemotherapy today, he has Diagnosis of Invasive Squamous Cell Carcinoma receiving weekly Carbo/Taxol and BID XRT. on hold Chemotherapy and Radiation therapy, on hold radiation therapy for 3 treatments continue Augmentin and Flagyl. Patient seen in his bedroom in sitting position, no Nausea, vomit or diarrhea, no changes in anterior assessment. Objective Vital Signs Date Time Temp Pulse Resp B/P Pulse Ox O2 Delivery O2 Flow Rate FiO2 05/15/16 04:00 98.4 108 16 118/60 98 05/15/16 00:00 99.8 134 16 130/69 97 05/14/16 20:00 97.9 116 16 104/51 97 05/14/16 15:50 97.9 103 20 113/60 99 05/14/16 11:30 100.2 112 20 130/64 96 I/O 05/14/16 05/14/16 05/14/16 05/15/16 05/15/16 05/15/16 07:00 15:00 23:00 07:00 15:00 23:00 Intake Total 0 ml 1680 ml 250 ml Balance 0 ml 1680 ml 250 ml Intake Oral 0 ml IV Total 600 ml 250 ml Tube Feeding 480 ml Other 600 ml # Voids 1 13 2 2 # Bowel Movements 1 Result Diagram: 05/15/16 0540 Imaging Last Impressions Chest X-Ray 05/10/16 0000 Signed Impressions: Service Date/Time: Tuesday, May 10, 2016 00:10 - CONCLUSION: No acute cardiopulmonary process. Demetrio Pressley MD Liver Ultrasound 04/12/16 0000 Signed Impressions: Service Date/Time: Tuesday, April 12, 2016 22:29 - CONCLUSION: 1. Solid indeterminate mass in the left lobe of the liver as well as a tiny cyst. An MRI of the abdomen with without contrast may be helpful for further assessment if felt clinically warranted. The possibility of a metastatic lesion is not excluded. 2. Cholelithiasis. 3. Bilateral pleural effusions are suspected sonographically. Chau Ward MD Chest CT 04/11/16 0000 Signed Impressions: Service Date/Time: Monday, April 11, 2016 14:09 - CONCLUSION: 1. Multiple small scattered noncalcified pulmonary nodules which are nonspecific but are of concern for early metastatic disease. 2. The known large tumor mass in the right side of the face and neck is partially visualized with destructive change involving the right side of the mandible. This extends into the right supraclavicular region. Please see soft tissue neck CT for further details. 3. Low attenuation lesion in the left lobe of the liver again noted. Holland Villegas MD Abdomen/Pelvis CT 04/11/16 0000 Signed Impressions: Service Date/Time: Monday, April 11, 2016 14:09 - CONCLUSION: 1. 1.4 cm low-attenuation lesion left lobe of the liver of concern for a metastasis. There is a smaller more cystic appearing structure in the right lobe. 2. The remainder of the study is unremarkable except for a PEG tube in the stomach. Holland Villegas MD Upper Extremity Ultrasound 04/08/16 0000 Signed Impressions: Service Date/Time: Friday, April 08, 2016 13:04 - CONCLUSION: No thrombus. Deshawn Michele MD Neck CT 04/02/16 0000 Signed Impressions: Service Date/Time: Saturday, April 02, 2016 11:54 - CONCLUSION: Very large heterogeneous soft tissue mass along the right side of the face with gross destruction involving most of the right mandible. The mass contains amorphous calcifications and appears to involve the right sternocleidomastoid muscle. The mass appears to extend into the oral cavity with diffuse enlargement of the right tonsillar pillar. Neoplastic disease in the primary consideration. Niall Corrales MD Multiplanar Reconstruction 04/02/16 0000 Signed Impressions: Service Date/Time: Saturday, April 02, 2016 11:54 - CONCLUSION: 3-D reconstructive images demonstrating destruction involving most the right side of the mandible. Niall Corrales MD Head CT 04/02/16 0000 Signed Impressions: Service Date/Time: Saturday, April 02, 2016 11:54 - CONCLUSION: 1. Unremarkable CT scan of the brain 2. Large abnormal soft tissue mass with calcifications along the right side of the face. Niall Corrales MD Procedures central line placement PEG placement bone biopsy teeth extraction Other Results Laboratory Tests Test 05/15/16 05:40 Prothrombin Time 15.4 SEC Prothromb Time International 1.4 RATIO Ratio Sodium Level 137 MEQ/L Potassium Level 3.8 MEQ/L Chloride Level 99 MEQ/L Carbon Dioxide Level 29.2 MEQ/L Anion Gap 9 MEQ/L Blood Urea Nitrogen 11 MG/DL Creatinine 0.38 MG/DL Estimat Glomerular Filtration 258 ML/MIN Rate Random Glucose 101 MG/DL Calcium Level 8.4 MG/DL Phosphorus Level 3.0 MG/DL Magnesium Level 1.4 MG/DL Total Bilirubin 0.3 MG/DL Aspartate Amino Transf 15 U/L (AST/SGOT) Alanine Aminotransferase 15 U/L (ALT/SGPT) Alkaline Phosphatase 117 U/L Total Protein 5.5 GM/DL Albumin 1.4 GM/DL Triglycerides Level 64 MG/DL Objective Remarks General: No acute Distress. HEENT: large ulcerating exophytic mass on the right side of the face. mouth is partial shut. Lips cracked. purulent tissue in his mouth but improving. CV RRR. no r/m/g Resp CTA B/L Abd soft NDNT EXT: no edema Medications and IVs Current Medications Medications (Trade) Dose Ordered Sig/Sara Route Start Time Stop Time Status Last Admin (Zofran Inj) 4 mg Q6H PRN IV PUSH 04/02/16 01:45 04/02/16 02:38 (NS Flush) 2 ml UNSCH PRN IVF 04/02/16 08:15 04/17/16 05:08 (NS Flush) 2 ml BID IVF 04/02/16 09:00 05/14/16 19:42 (Benadryl) 25 mg Q6H PRN PO 04/02/16 09:00 04/12/16 04:30 (Lovenox Inj) 30 mg Q24H SQ 04/04/16 15:30 05/14/16 15:30 (Free Water) VOLUME: 200 ML Q6HR G-TUBE 04/04/16 08:45 05/15/16 05:50 (Tylenol) 650 mg Q4H PRN PO 04/07/16 01:45 05/12/16 06:01 (Morphine Inj) 2 mg Q2HR PRN IV PUSH 04/08/16 09:00 (Hycet 325-7.5 Mg Liq) 15 ml Q3HR PRN PO 04/08/16 14:45 05/14/16 23:09 (Colace Liq) 100 mg BID PRN GT 04/15/16 12:15 05/11/16 05:08 (Clara-Colace) 2 tab BID G-TUBE 04/15/16 21:00 05/14/16 19:42 (Lactulose Liq) 30 ml TID PRN G-TUBE 04/15/16 12:15 (Dulcolax Supp) 10 mg DAILY PRN IN 04/15/16 12:15 (Milk Of Magnesia Liq) 30 ml Q6H PRN GT 04/15/16 12:15 (Chapstick) 1 applic UNSCH PRN TOP 04/17/16 10:00 04/18/16 00:01 (Mag-Ox) 800 mg Q12HR GT 04/17/16 21:00 05/14/16 19:42 (Reglan Liq) 10 mg ACHS G-TUBE 04/19/16 16:00 05/15/16 05:41 (Miralax) 17 gm DAILY G-TUBE 04/22/16 09:00 05/14/16 08:27 (K-Phos) 500 mg Q12HR PO 04/24/16 12:00 05/14/16 19:42 (Lactinex) 1 tab TID PO 04/24/16 18:00 05/14/16 18:00 (Benadryl Inj) 25 mg Q4H PRN IV 04/26/16 19:00 (Diflucan) 200 mg DAILY PO 05/01/16 15:45 05/14/16 08:28 (Flagyl) 500 mg Q8HR PO 05/01/16 22:00 05/15/16 05:41 (Magic Mouthwash Adult Liq) 5 ml QID SWISH-SWAL 05/01/16 18:00 05/14/16 22:36 Potassium Bicarb/ Potassium Chloride 40 meq 40 meq Q12HR NG 05/04/16 22:00 05/14/16 19:38 (Unasyn Inj/NS Inj) 100 ml @ 200 mls/hr Q6H IV 05/10/16 22:00 05/15/16 03:53 A/P Assessment and Plan 1. Squamous Cell Carcinoma of Oropharynx, CT of the face showed very large heterogeneous soft tissue mass along the right side of the face with gross destruction involving most of the right mandible. Probable Metastatic Disease to the Abdomen and Lung/Liver. 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 status post Radiation therapy today, recommended by animal care specialist to hold Chemotherapy and also on hold Radiation therapy due to toxicity associated with large radiation field for 3 treatments. general Surgery following. 2. Stomatitis and Mucositis, some otitis on Chemotherapy, continue Magic Mouth Wash 3. Sepsis one bottle of blood cultures, growing Pseudomonas Stutzeri. right facial wound and central line suspected source. Central line discontinued. was on Levofloxacin switched to Augmentin plus Flagyl and continue Fluconazole. Antibiotics handled by Attending physician, do not want ID specialist on the case. 4. 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 5. Hypercalcemia of malignancy, status post treatment with Aredia. resolved 6. Anemia secondary to Chemotherapy, Status post Blood transfusion. Hemoglobin 8.5 7. Severe Protein Calorie Malnutrition, status post PEG placement tube feedings 8. Constipation continue Colace, MiraLAX and Lactulose 9. electrolyte derangement replaced. DVT prophylaxis with Lovenox. Continue present care discussed with Patient in the room, no changes to anterior assessment. Discharge Planning As per Attending physician. Richie Devries MD May 15, 2016 08:18 Richie Devries MD May 15, 2016 08:18 Richie Devries MD May 15, 2016 08:18
[2016-05-15] MEDS: NYSTAT/DIPHENHY/LIDO MOUTHWASH (Adult) 120ML SWISH-SWAL SCH ×4 (09:00→20:50)
[2016-05-15] MEDS: POLYETHYLENE GLYCOL 17 GM PKG G-TUBE SCH (09:00)
[2016-05-15] MEDS: DOCUSATE SODIUM 50 MG/SENNA 8.6 MG TAB G-TUBE SCH ×2 (09:00→20:49)
[2016-05-15] MEDS: POTASSIUM CHLORIDE 25 MEQ EFFERVESCENT TAB NG SCH ×2 (09:39→20:50)
[2016-05-15] MEDS: LACTOBACILLUS ACIDOPHILUS TAB PO SCH ×3 (09:39→18:25)
[2016-05-15] MEDS: POTASSIUM PHOSPHATE MONOBASIC 500 MG TAB PO SCH ×2 (09:40→20:47)
[2016-05-15] MEDS: MAGNESIUM OXIDE 400 MG TAB GT SCH ×2 (09:40→20:48)
[2016-05-15] MEDS: FLUCONAZOLE 200 MG TAB PO SCH (09:40)
[2016-05-15] MEDS: SODIUM CHLORIDE 0.9% FLUSH 5 ML FLUSH IVF SCH ×2 (09:40→20:49)
[2016-05-15 12:00] VITALS: BP 99/53; PULSE 110; RESP 20; TEMP 99.7; O2SAT 98
[2016-05-15] MEDS: ACETAMINOPHEN 325MG/HYDROcodone 7.5MG/15ML UDC PO PRN ×2 (12:57→20:47)
--- NOTE | 2016-05-15 13:23 | HHI.PR ---
Subjective Subjective Notes Sitting in chair by the window Brother is outside Objective Vitals/I&O Vital Signs Date Time Temp Pulse Resp B/P Pulse Ox O2 Delivery O2 Flow Rate FiO2 05/15/16 08:00 97.2 110 16 105/61 98 Labs Laboratory Tests Test 05/15/16 05:40 Prothrombin Time 15.4 Prothromb Time International 1.4 Ratio Sodium Level 137 Potassium Level 3.8 Chloride Level 99 Carbon Dioxide Level 29.2 Anion Gap 9 Blood Urea Nitrogen 11 Creatinine 0.38 Estimat Glomerular Filtration 258 Rate Random Glucose 101 Calcium Level 8.4 Phosphorus Level 3.0 Magnesium Level 1.4 Total Bilirubin 0.3 Aspartate Amino Transf 15 (AST/SGOT) Alanine Aminotransferase 15 (ALT/SGPT) Alkaline Phosphatase 117 Total Protein 5.5 Albumin 1.4 Triglycerides Level 64 Cardiovascular: Regular Lungs: Clear Abdomen: Non-distended, Non-tender, Other (PEG in place ) Extremities: No edema Narrative Exam Face: large RIGHT sided facial malignancy A/P Assessment and Plan 35 year old male with large oropharyngeal cancer -Continue antibiotics -Plan to resume chemotherapy this week ---management per Oncology -OMFS following for timing of debulking tumor in OR (possibly this week) -s/p PEG placement -s/p biopsy of mass -Tolerating bolus feedings I certify and attest that I personally examined this patient with Ms. Stapleton who documented our visit in the EMR and entered orders under my direct supervision. I reviewed the care plan with the nursing staff and family if present. Brittnee Arroyo MD, FACS May 15, 2016 13:23 Juan Oseguera MD May 24, 2016 14:32
[2016-05-15] MEDS: ENOXAPARIN SODIUM 30 MG/0.3 ML SYRINGE SQ SCH (15:23)
[2016-05-15 16:00] VITALS: BP 105/53; PULSE 108; RESP 16; TEMP 98.4; O2SAT 100
[2016-05-15 20:00] VITALS: BP 108/60; PULSE 115; RESP 19; TEMP 99.2; O2SAT 99
[2016-05-16] VITALS (9 sets, daily range): BP systolic 89–130; BP diastolic 53–74; PULSE 103–116; RESP 16–22; TEMP 96.8–100.6; O2SAT 97–99
[2016-05-16] MEDS: FREE WATER G-TUBE SCH ×4 (00:39→18:40)
[2016-05-16] MEDS: ACETAMINOPHEN 325 MG TAB PO PRN ×2 (04:20→23:18)
[2016-05-16] MEDS: AMPICILLIN-SULBACTAM INJ 3 GM in SODIUM CHLORIDE 0.9% INJ 100 ML IV SCH ×4 (04:23→21:54)
[2016-05-16] MEDS: METOCLOPRAMIDE HCL SYRUP 10 MG/10 ML UDC G-TUBE SCH ×4 (06:06→21:54)
[2016-05-16] MEDS: metroNIDAZOLE 500 MG TAB PO SCH ×3 (06:06→21:54)
[2016-05-16] MEDS: POLYETHYLENE GLYCOL 17 GM PKG G-TUBE SCH (08:36)
[2016-05-16] MEDS: DOCUSATE SODIUM 50 MG/SENNA 8.6 MG TAB G-TUBE SCH ×2 (08:37→21:00)
[2016-05-16] MEDS: MAGNESIUM OXIDE 400 MG TAB GT SCH ×2 (08:40→21:55)
[2016-05-16] MEDS: FLUCONAZOLE 200 MG TAB PO SCH (08:40)
[2016-05-16] MEDS: NYSTAT/DIPHENHY/LIDO MOUTHWASH (Adult) 120ML SWISH-SWAL SCH ×4 (08:40→21:00)
[2016-05-16] MEDS: POTASSIUM PHOSPHATE MONOBASIC 500 MG TAB PO SCH ×2 (08:40→21:55)
[2016-05-16] MEDS: SODIUM CHLORIDE 0.9% FLUSH 5 ML FLUSH IVF SCH ×2 (08:40→21:55)
[2016-05-16] MEDS: LACTOBACILLUS ACIDOPHILUS TAB PO SCH ×3 (08:40→18:40)
[2016-05-16] MEDS: POTASSIUM CHLORIDE 25 MEQ EFFERVESCENT TAB NG SCH ×2 (08:40→21:55)
--- NOTE | 2016-05-16 11:29 | HHI.PR ---
Subjective Remarks Follow-up for oropharynx carcinoma, stomatitis, hyperglycemia, anemia, electrolyte imbalance, severe malnutrition. Patient is currently sitting by the window, denies any pain, denies chest pain or short of breath. Patient denies any nausea, vomiting or diarrhea. Objective Vitals Vital Signs Date Time Temp Pulse Resp B/P Pulse Ox O2 Delivery O2 Flow Rate FiO2 05/16/16 08:00 96.8 106 22 89/53 98 05/16/16 04:00 100.6 115 20 117/64 99 05/16/16 00:00 100.3 103 18 130/66 97 05/15/16 20:00 99.2 115 19 108/60 99 05/15/16 16:00 98.4 108 16 105/53 100 05/15/16 12:00 99.7 110 20 99/53 98 I/O 05/15/16 05/15/16 05/15/16 05/16/16 05/16/16 05/16/16 07:00 15:00 23:00 07:00 15:00 23:00 Intake Total 250 ml 0 ml Balance 250 ml 0 ml Intake Oral 0 ml IV Total 250 ml # Voids 2 2 Result Diagram: 05/15/16 0540 Imaging Last Impressions Chest X-Ray 05/10/16 0000 Signed Impressions: Service Date/Time: Tuesday, May 10, 2016 00:10 - CONCLUSION: No acute cardiopulmonary process. Demetrio Pressley MD Liver Ultrasound 04/12/16 0000 Signed Impressions: Service Date/Time: Tuesday, April 12, 2016 22:29 - CONCLUSION: 1. Solid indeterminate mass in the left lobe of the liver as well as a tiny cyst. An MRI of the abdomen with without contrast may be helpful for further assessment if felt clinically warranted. The possibility of a metastatic lesion is not excluded. 2. Cholelithiasis. 3. Bilateral pleural effusions are suspected sonographically. Chau Ward MD Chest CT 04/11/16 0000 Signed Impressions: Service Date/Time: Monday, April 11, 2016 14:09 - CONCLUSION: 1. Multiple small scattered noncalcified pulmonary nodules which are nonspecific but are of concern for early metastatic disease. 2. The known large tumor mass in the right side of the face and neck is partially visualized with destructive change involving the right side of the mandible. This extends into the right supraclavicular region. Please see soft tissue neck CT for further details. 3. Low attenuation lesion in the left lobe of the liver again noted. Holland Villegas MD Abdomen/Pelvis CT 04/11/16 0000 Signed Impressions: Service Date/Time: Monday, April 11, 2016 14:09 - CONCLUSION: 1. 1.4 cm low-attenuation lesion left lobe of the liver of concern for a metastasis. There is a smaller more cystic appearing structure in the right lobe. 2. The remainder of the study is unremarkable except for a PEG tube in the stomach. Holland Villegas MD Upper Extremity Ultrasound 04/08/16 0000 Signed Impressions: Service Date/Time: Friday, April 08, 2016 13:04 - CONCLUSION: No thrombus. Deshawn Michele MD Neck CT 04/02/16 0000 Signed Impressions: Service Date/Time: Saturday, April 02, 2016 11:54 - CONCLUSION: Very large heterogeneous soft tissue mass along the right side of the face with gross destruction involving most of the right mandible. The mass contains amorphous calcifications and appears to involve the right sternocleidomastoid muscle. The mass appears to extend into the oral cavity with diffuse enlargement of the right tonsillar pillar. Neoplastic disease in the primary consideration. Niall Corrales MD Multiplanar Reconstruction 04/02/16 0000 Signed Impressions: Service Date/Time: Saturday, April 02, 2016 11:54 - CONCLUSION: 3-D reconstructive images demonstrating destruction involving most the right side of the mandible. Niall Corrales MD Head CT 04/02/16 0000 Signed Impressions: Service Date/Time: Saturday, April 02, 2016 11:54 - CONCLUSION: 1. Unremarkable CT scan of the brain 2. Large abnormal soft tissue mass with calcifications along the right side of the face. Niall Corrales MD Objective Remarks Gen NAD HEENT: large ulcerating exophytic mass on the right side of the face. mouth is partial shut. Lips cracked. CV RRR. no r/m/g Resp CTA B/L Abd soft NDNT EXT: no edema Procedures central line placement PEG placement bone biopsy teeth extraction Medications and IVs Current Medications Medications (Trade) Dose Ordered Sig/Sara Route Start Time Stop Time Status Last Admin (Zofran Inj) 4 mg Q6H PRN IV PUSH 04/02/16 01:45 04/02/16 02:38 (NS Flush) 2 ml UNSCH PRN IVF 04/02/16 08:15 04/17/16 05:08 (NS Flush) 2 ml BID IVF 04/02/16 09:00 05/16/16 08:40 (Benadryl) 25 mg Q6H PRN PO 04/02/16 09:00 04/12/16 04:30 (Lovenox Inj) 30 mg Q24H SQ 04/04/16 15:30 05/15/16 15:23 (Free Water) VOLUME: 200 ML Q6HR G-TUBE 04/04/16 08:45 05/16/16 13:07 (Tylenol) 650 mg Q4H PRN PO 04/07/16 01:45 05/16/16 04:20 (Morphine Inj) 2 mg Q2HR PRN IV PUSH 04/08/16 09:00 (Hycet 325-7.5 Mg Liq) 15 ml Q3HR PRN PO 04/08/16 14:45 05/15/16 20:47 (Colace Liq) 100 mg BID PRN GT 04/15/16 12:15 05/11/16 05:08 (Clara-Colace) 2 tab BID G-TUBE 04/15/16 21:00 05/14/16 19:42 (Lactulose Liq) 30 ml TID PRN G-TUBE 04/15/16 12:15 (Dulcolax Supp) 10 mg DAILY PRN MO 04/15/16 12:15 (Milk Of Magnesia Liq) 30 ml Q6H PRN GT 04/15/16 12:15 (Chapstick) 1 applic UNSCH PRN TOP 04/17/16 10:00 04/18/16 00:01 (Mag-Ox) 800 mg Q12HR GT 04/17/16 21:00 05/16/16 08:40 (Reglan Liq) 10 mg ACHS G-TUBE 04/19/16 16:00 05/16/16 13:07 (Miralax) 17 gm DAILY G-TUBE 04/22/16 09:00 05/14/16 08:27 (K-Phos) 500 mg Q12HR PO 04/24/16 12:00 05/16/16 08:40 (Lactinex) 1 tab TID PO 04/24/16 18:00 05/16/16 13:07 (Benadryl Inj) 25 mg Q4H PRN IV 04/26/16 19:00 (Diflucan) 200 mg DAILY PO 05/01/16 15:45 05/16/16 08:40 (Flagyl) 500 mg Q8HR PO 05/01/16 22:00 05/16/16 13:07 (Magic Mouthwash Adult Liq) 5 ml QID SWISH-SWAL 05/01/16 18:00 05/14/16 22:36 Potassium Bicarb/ Potassium Chloride 40 meq 40 meq Q12HR NG 05/04/16 22:00 05/16/16 08:40 Ampicillin Sodium/ Sulbactam Sodium 3 gm/Sodium Chloride 100 ml @ 200 mls/hr Q6H IV 05/10/16 22:00 05/16/16 10:14 (NS 250 ml Inj) 250 ml @ 15 mls/hr ONCE ONCE IV 05/16/16 13:00 05/17/16 05:39 (Tylenol) 650 mg Q4H PRN PO 05/16/16 13:00 05/16/16 17:01 (Benadryl) 25 mg Q4H PRN PO 05/16/16 13:00 05/16/16 17:01 Urinary Catheter: No Vascular Central Line Catheter: No A/P Problem List: (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 CT of the face showed very large heterogeneous soft tissue mass along the right side of the face with gross destruction involving most of the right mandible. The chest and abdomen with possible lung/liver metastasis. Status post bone biopsy, pathology reported differentiated squamous cell carcinoma. Patient undergoing chemotherapy and radiation therapy for palliation as per oncology recommendations. 05/16 Patient's chemotherapy and radiation therapy on hold due to concerns for radiation dermatitis. Radiation therapy was held for 3 doses last week, plan to resume therapy this week. (2) Stomatitis and mucositis ICD Code: K12.1 Status: Acute Plan: Concern for radiation dermatitis. Radiation therapy and chemotherapy on hold. Resume as per radiation oncology and medical oncology. (3) Sepsis ICD Code: A41.9 Status: Acute Plan: Patient still with low-grade fevers with a MAXIMUM TEMPERATURE of 100.6 and tachycardia as well as leukopenia. Possibly right facial wound and central line suspected to be the source. Central line was discontinued. 1 bottle blood cultures with Pseudomonas stutzeri. Patient was treated with IV Zosyn for total of 2 weeks N date 04/20/16. Repeat blood cultures on 26/07, 04/19,05/04, 05/10 all negative x5. Patient was being treated with Levaquin, Flagyl and fluconazole orally. Levaquin was discontinued. The patient is currently being treated with IV Unasyn, oral Flagyl and oral fluconazole. The prior exam handled by attending physician who does not want ID specialist on the case. (4) Leukocytosis ICD Code: D72.829 Status: Resolved Plan: Leukocytosis likely secondary to sepsis as above. Leukocytosis resolved. Continue to monitor CBC with differential. Patient now leukopenic. (5) Sinus tachycardia ICD Code: R00.0 Status: Acute Plan: TSH within normal limits. Continue to monitor vital signs. Possibly compensatory to anemia. Hemoglobin 6.5 today. Transfuse packed red blood cells. (6) Hyponatremia ICD Code: E87.1 Status: Acute Plan: Suspected SIADH, for what was decreased via PEG. Now sodium 137. Continue to monitor BMP. (7) Hypercalcemia of malignancy ICD Code: E83.52 Status: Acute Plan: Status post treatment with Aredia. Now resolved. Continue to monitor. (8) 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: Acute Plan: Status post PRBC transfusion. Hemoglobin stable at 8.9. Continue to monitor H&H. Transfuse to keep hemoglobin more than 7 . 3 hemoglobin today down to 6.5. Likely secondary to chemotherapy. I agree with transfusion of packed red blood cells. (9) Electrolyte abnormality ICD Code: E87.8 Status: Acute Plan: Patient with hypokalemia, hypomagnesemia and hypophosphatemia likely from nutritional deficiency due to decreased by mouth intake. All have been replaced and corrected - continue to monitor electrolytes. (10) Severe protein-calorie malnutrition ICD Code: E43 Status: Acute Plan: As evidenced by a more low albumin of 1.5, patient not eating much due to location of cancer. Registered dietitian consulting. Follow-up recommendations. Patient currently on Jevity 1.5 with 6 boluses daily which the patient has been tolerating. However the patient has not been gaining weight and dietitian recommends switching to feeding formulas to TwoCal HN. Changes be made. (11) Constipation ICD Code: K59.00 Status: Resolved Plan: Seems to be stable. Continue senna for stress Colace, MiraLAX daily, lactulose when necessary. (12) DNR no code (do not resuscitate) ICD Code: Z66 Status: Acute Plan: Patient has DO NOT RESUSCITATE status (13) Palliative care patient ICD Code: Z51.5 Status: Acute Plan: Patient being followed by palliative care. Assessment and Plan GI prophylaxis: Lactinex, will add PPI. Prophylaxis: SCDs, continue Lovenox continuously. Discharge Planning Most likely a long hospital stay due to severity of cancer. Continue to monitor in the oncology floor, and Kelsey chemotherapy and possible debulking surgery by general surgery. Nirav Preston MD May 16, 2016 11:29
[2016-05-16 12:42] LABS: AUTOMATED NEUTROPHIL # 2.7 TH/MM3 (1.8-7.7); BASOPHIL % 0.5 % (0.0-2.0); EOSINOPHIL % 0.8 % (0.0-4.0); LYMPH % 3.8 % (9.0-44.0); LYMPHOCYTE # 0.1 TH/MM3 (1.0-4.8); MEAN CELL VOLUME 90.5 FL (80.0-100.0); MEAN CORPUSCULAR HEMOGLOBIN 30.5 PG (27.0-34.0); MEAN CORPUSCULAR HGB CONC 33.7 % (32.0-36.0); MONO % 15.5 % (0.0-8.0); NEUT % 79.4 % (16.0-70.0); PLATELET COUNT 385 TH/MM3 (150-450); RED BLOOD COUNT 2.14 MIL/MM3 (4.50-5.90); RED CELL DISTRIBUTION WIDTH 14.8 % (11.6-17.2); WHITE BLOOD COUNT 3.4 TH/MM3 (4.0-11.0)
[2016-05-16 12:47] LABS: HEMATOCRIT 19.4 % (39.0-51.0); HEMO FLAGS AUTO DIFF
[2016-05-16] MEDS ORDERED: diphenhydrAMINE HCL 25 MG CAP PO PRN (13:00)
[2016-05-16] MEDS ORDERED: SODIUM CHLOR 0.9% 250 ML INJ 250 ML IV ONE (13:00)
[2016-05-16] MEDS ORDERED: ACETAMINOPHEN 325 MG TAB PO PRN (13:00)
[2016-05-16 13:24] LABS: BANDS 11 % (0-6); EOSINOPHILS 1 % (0-4); MYELOCYTES 1 % (0-0); POLYS (SEG NEUTROPHILS) 76 % (16-70); WBC DIFF SAMPLE 100
[2016-05-16 13:25] LABS: TOXIC GRANULATION 1+ (NORMAL)
[2016-05-16 13:26] LABS: PLATELET ESTIMATE SMEAR NORMAL (NORMAL); PLATELET MORPHOLOGY NORMAL (NORMAL)
[2016-05-16 13:27] LABS: DOHLE BODIES PRESENT (NONE SEEN); SCAN/DIFF FINAL DIFF MANUAL
[2016-05-16] MEDS: ENOXAPARIN SODIUM 30 MG/0.3 ML SYRINGE SQ SCH (16:32)
[2016-05-16] MEDS: ACETAMINOPHEN 325MG/HYDROcodone 7.5MG/15ML UDC PO PRN ×2 (16:36→23:18)
[2016-05-16] MEDS: diphenhydrAMINE HCL 25 MG CAP PO PRN (23:18)
[2016-05-17] VITALS (8 sets, daily range): BP systolic 100–110; BP diastolic 54–69; PULSE 108–128; RESP 16–20; TEMP 96.5–100.5; O2SAT 96–99
[2016-05-17] MEDS: ACETAMINOPHEN 325 MG TAB PO PRN (04:13)
[2016-05-17] MEDS: AMPICILLIN-SULBACTAM INJ 3 GM in SODIUM CHLORIDE 0.9% INJ 100 ML IV SCH ×4 (04:13→21:34)
[2016-05-17] MEDS: FREE WATER G-TUBE SCH ×4 (05:27→18:00)
[2016-05-17] MEDS: METOCLOPRAMIDE HCL SYRUP 10 MG/10 ML UDC G-TUBE SCH ×4 (05:27→21:33)
[2016-05-17] MEDS: metroNIDAZOLE 500 MG TAB PO SCH ×3 (05:27→21:31)
[2016-05-17 07:51] LABS: AUTOMATED NEUTROPHIL # 3.2 TH/MM3 (1.8-7.7); BASOPHIL % 0.7 % (0.0-2.0); EOSINOPHIL % 1.1 % (0.0-4.0); HEMATOCRIT 25.1 % (39.0-51.0); LYMPH % 4.3 % (9.0-44.0); LYMPHOCYTE # 0.2 TH/MM3 (1.0-4.8); MEAN CELL VOLUME 86.3 FL (80.0-100.0); MEAN CORPUSCULAR HEMOGLOBIN 29.5 PG (27.0-34.0); MEAN CORPUSCULAR HGB CONC 34.2 % (32.0-36.0); NEUT % 78.9 % (16.0-70.0); PLATELET COUNT 389 TH/MM3 (150-450); RED BLOOD COUNT 2.91 MIL/MM3 (4.50-5.90); RED CELL DISTRIBUTION WIDTH 15.9 % (11.6-17.2)
[2016-05-17 08:06] LABS: HEMO FLAGS AUTO DIFF
[2016-05-17 08:27] LABS: ALKALINE PHOSPHATASE 112 U/L (45-117); ALT (GPT) 12 U/L (12-78); ANION GAP 9 MEQ/L (5-15); AST (GOT) 13 U/L (15-37); BICARBONATE 28.9 MEQ/L (21.0-32.0); BLOOD UREA NITROGEN 11 MG/DL (7-18); CHLORIDE 95 MEQ/L (98-107); GLOMERULAR FILTRATION RATE 237 ML/MIN (>89); MAGNESIUM 1.4 MG/DL (1.5-2.5); POTASSIUM 3.5 MEQ/L (3.5-5.1); SODIUM (NA) 133 MEQ/L (136-145); TOTAL BILIRUBIN ADULT 0.3 MG/DL (0.2-1.0)
[2016-05-17] MEDS: NYSTAT/DIPHENHY/LIDO MOUTHWASH (Adult) 120ML SWISH-SWAL SCH ×4 (09:00→21:33)
[2016-05-17] MEDS: SODIUM CHLORIDE 0.9% FLUSH 5 ML FLUSH IVF SCH ×2 (09:00→21:00)
[2016-05-17] MEDS: MORPHINE SULFATE 4 MG/ML INJ IV PUSH PRN ×2 (09:01→15:00)
[2016-05-17] MEDS: ONDANSETRON HCL 4 MG/2 ML VIAL IV PUSH PRN (09:01)
[2016-05-17 09:23] LABS: BANDS 12 % (0-6); DOHLE BODIES PRESENT (NONE SEEN); METAMYELOCYTES 1 % (0-1); MYELOCYTES 2 % (0-0); NEUTROPHIL # MANUAL DIFF 3.3 TH/MM3 (1.8-7.7); PLATELET ESTIMATE SMEAR HIGH (NORMAL); PLATELET MORPHOLOGY NORMAL (NORMAL); POLYS (SEG NEUTROPHILS) 68 % (16-70); TOXIC GRANULATION 1+ (NORMAL); WBC DIFF SAMPLE 100
[2016-05-17 09:25] LABS: SCAN/DIFF FINAL DIFF MANUAL
--- NOTE | 2016-05-17 09:51 | HHI.PR ---
Subjective Remarks no major overnight events, pain controlled still with persistent low grade fevers - Tmax 100.5 denies cp/sob Objective Vitals Vital Signs Date Time Temp Pulse Resp B/P Pulse Ox O2 Delivery O2 Flow Rate FiO2 05/17/16 07:50 98.6 113 20 100/56 98 05/17/16 04:30 99.5 111 18 110/61 99 05/17/16 02:50 100.4 05/17/16 01:30 100.5 108 18 109/64 99 05/17/16 01:15 99.5 111 16 105/63 99 05/16/16 23:26 99.9 114 16 104/68 99 05/16/16 20:12 97.5 107 16 97/55 99 05/16/16 17:25 99.6 113 20 100/55 97 05/16/16 16:00 99.6 113 18 100/55 97 05/16/16 15:40 99.8 116 20 111/64 97 05/16/16 12:00 98.6 112 22 113/74 98 I/O 05/16/16 05/16/16 05/16/16 05/17/16 05/17/16 05/17/16 07:00 15:00 23:00 07:00 15:00 23:00 Intake Total 0 ml 0 ml Balance 0 ml 0 ml Intake Oral 0 ml 0 ml # Voids 2 1 2 # Bowel Movements 1 0 0 Result Diagram: 05/17/1660605/17/1607 Objective Remarks Gen NAD HEENT: large ulcerating exophytic mass on the right side of the face. mouth is partial shut. Lips cracked. CV RRR. no r/m/g Resp CTA B/L Abd soft NDNT EXT: no edema Procedures central line placement PEG placement bone biopsy teeth extraction Medications and IVs Current Medications Medications (Trade) Dose Ordered Sig/Sara Route Start Time Stop Time Status Last Admin (Zofran Inj) 4 mg Q6H PRN IV PUSH 04/02/16 01:45 05/17/16 09:01 (NS Flush) 2 ml UNSCH PRN IVF 04/02/16 08:15 04/17/16 05:08 (NS Flush) 2 ml BID IVF 04/02/16 09:00 05/17/16 09:00 (Benadryl) 25 mg Q6H PRN PO 04/02/16 09:00 05/17/16 11:32 (Lovenox Inj) 30 mg Q24H SQ 04/04/16 15:30 05/17/16 15:00 (Free Water) VOLUME: 200 ML Q6HR G-TUBE 04/04/16 08:45 05/17/16 12:00 (Tylenol) 650 mg Q4H PRN PO 04/07/16 01:45 05/17/16 04:13 (Morphine Inj) 2 mg Q2HR PRN IV PUSH 04/08/16 09:00 05/17/16 15:00 (Hycet 325-7.5 Mg Liq) 15 ml Q3HR PRN PO 04/08/16 14:45 05/17/16 15:32 (Colace Liq) 100 mg BID PRN GT 04/15/16 12:15 05/11/16 05:08 (Clara-Colace) 2 tab BID G-TUBE 04/15/16 21:00 05/14/16 19:42 (Lactulose Liq) 30 ml TID PRN G-TUBE 04/15/16 12:15 (Dulcolax Supp) 10 mg DAILY PRN IA 04/15/16 12:15 (Milk Of Magnesia Liq) 30 ml Q6H PRN GT 04/15/16 12:15 (Chapstick) 1 applic UNSCH PRN TOP 04/17/16 10:00 04/18/16 00:01 (Mag-Ox) 800 mg Q12HR GT 04/17/16 21:00 05/17/16 11:32 (Reglan Liq) 10 mg ACHS G-TUBE 04/19/16 16:00 05/17/16 15:31 (Miralax) 17 gm DAILY G-TUBE 04/22/16 09:00 05/14/16 08:27 (K-Phos) 500 mg Q12HR PO 04/24/16 12:00 05/17/16 11:32 (Lactinex) 1 tab TID PO 04/24/16 18:00 05/17/16 15:31 (Benadryl Inj) 25 mg Q4H PRN IV 04/26/16 19:00 (Diflucan) 200 mg DAILY PO 05/01/16 15:45 05/17/16 11:32 (Flagyl) 500 mg Q8HR PO 05/01/16 22:00 05/17/16 15:00 (Magic Mouthwash Adult Liq) 5 ml QID SWISH-SWAL 05/01/16 18:00 05/14/16 22:36 Potassium Bicarb/ Potassium Chloride 40 meq 40 meq Q12HR NG 05/04/16 22:00 05/17/16 11:33 (Unasyn Inj/NS Inj) 100 ml @ 200 mls/hr Q6H IV 05/10/16 22:00 05/17/16 11:32 A/P Problem List: (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 Status: Acute (2) Stomatitis and mucositis ICD Code: K12.1 Status: Acute (3) Sepsis ICD Code: A41.9 Status: Acute (4) Leukocytosis ICD Code: D72.829 Status: Resolved (5) Sinus tachycardia ICD Code: R00.0 Status: Acute (6) Hyponatremia ICD Code: E87.1 Status: Acute (7) Hypercalcemia of malignancy ICD Code: E83.52 Status: Acute (8) 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: Acute (9) Electrolyte abnormality ICD Code: E87.8 Status: Acute (10) Severe protein-calorie malnutrition ICD Code: E43 Status: Acute (11) Constipation ICD Code: K59.00 Status: Resolved (12) DNR no code (do not resuscitate) ICD Code: Z66 Status: Acute (13) Palliative care patient ICD Code: Z51.5 Status: Acute (14) Hypomagnesemia ICD Code: E83.42 Status: Acute Plan: Magnesium level 1.4. Replete with IV magnesium sulfate and continue to monitor levels. Assessment and Plan (1) Squamous cell carcinoma of oropharynx Plan: Patient was admitted to the medical floor. CT of the face showed very large heterogeneous soft tissue mass along the right side of the face with gross destruction involving most of the right mandible. The chest and abdomen with possible lung/liver metastasis. Status post bone biopsy, pathology reported differentiated squamous cell carcinoma. Patient undergoing chemotherapy and radiation therapy for palliation as per oncology recommendations. 05/16 Patient's chemotherapy and radiation therapy on hold due to concerns for radiation dermatitis. Radiation therapy was held for 3 doses last week, plan to resume therapy this week. (2) Stomatitis and mucositis Plan: Concern for radiation dermatitis. Radiation therapy and chemotherapy on hold. Resume as per radiation oncology and medical oncology. (3) Sepsis Plan: Patient still with low-grade fevers with a MAXIMUM TEMPERATURE of 100.6 and tachycardia as well as leukopenia. Possibly right facial wound and central line suspected to be the source. Central line was discontinued. 1 bottle blood cultures with Pseudomonas stutzeri. Patient was treated with IV Zosyn for total of 2 weeks N date 04/20/16. Repeat blood cultures on 26/07, 04/19,05/04, 05/10 all negative x5. Patient was being treated with Levaquin, Flagyl and fluconazole orally. Levaquin was discontinued. The patient is currently being treated with IV Unasyn, oral Flagyl and oral fluconazole. The prior exam handled by attending physician who does not want ID specialist on the case. (4) Leukocytosis Plan: Leukocytosis likely secondary to sepsis as above. Leukocytosis resolved. Continue to monitor CBC with differential. Patient now leukopenic. (5) Sinus tachycardia Plan: TSH within normal limits. Continue to monitor vital signs. Possibly compensatory to anemia. Hemoglobin 6.5 today. Transfuse packed red blood cells. (6) Hyponatremia Plan: Suspected SIADH, for what was decreased via PEG. Now sodium 137. Continue to monitor BMP. (7) Hypercalcemia of malignancy Plan: Status post treatment with Aredia. Now resolved. Continue to monitor. (8) Anemia due to chemotherapy Plan: Status post PRBC transfusion. Hemoglobin stable at 8.9. Continue to monitor H&H. Transfuse to keep hemoglobin more than 7 . 3/14 hemoglobin today down to 6.5. Likely secondary to chemotherapy. I agree with transfusion of packed red blood cells. (9) Electrolyte abnormality Plan: Patient with hypokalemia, hypomagnesemia and hypophosphatemia likely from nutritional deficiency due to decreased by mouth intake. All have been replaced and corrected - continue to monitor electrolytes. (10) Severe protein-calorie malnutrition Plan: As evidenced by a more low albumin of 1.5, patient not eating much due to location of cancer. Registered dietitian consulting. Follow-up recommendations. Patient currently on Jevity 1.5 with 6 boluses daily which the patient has been tolerating. However the patient has not been gaining weight and dietitian recommends switching to feeding formulas to TwoCal . Changes be made. (11) Constipation Plan: Seems to be stable. Continue senna for stress Colace, MiraLAX daily, lactulose when necessary. (12) DNR no code (do not resuscitate) Plan: Patient has DO NOT RESUSCITATE status (13) Palliative care patient Plan: Patient being followed by palliative care. GI prophylaxis: Lactinex, will add PPI. Prophylaxis: SCDs, continue Lovenox continuously. Discharge Planning Most likely a long hospital stay due to severity of cancer. Continue to monitor in the oncology floor, and Kelsey chemotherapy and possible debulking surgery by general surgery. Nirav Preston MD May 17, 2016 09:51
[2016-05-17] MEDS: POTASSIUM PHOSPHATE MONOBASIC 500 MG TAB PO SCH ×2 (11:32→21:31)
[2016-05-17] MEDS: MAGNESIUM OXIDE 400 MG TAB GT SCH ×2 (11:32→21:33)
[2016-05-17] MEDS: LACTOBACILLUS ACIDOPHILUS TAB PO SCH ×3 (11:32→19:03)
[2016-05-17] MEDS: FLUCONAZOLE 200 MG TAB PO SCH (11:32)
[2016-05-17] MEDS: diphenhydrAMINE HCL 25 MG CAP PO PRN (11:32)
[2016-05-17] MEDS: DOCUSATE SODIUM 50 MG/SENNA 8.6 MG TAB G-TUBE SCH ×2 (11:33→21:31)
[2016-05-17] MEDS: POLYETHYLENE GLYCOL 17 GM PKG G-TUBE SCH (11:33)
[2016-05-17] MEDS: POTASSIUM CHLORIDE 25 MEQ EFFERVESCENT TAB NG SCH ×2 (11:33→21:32)
[2016-05-17] MEDS: ENOXAPARIN SODIUM 30 MG/0.3 ML SYRINGE SQ SCH (15:00)
[2016-05-17] MEDS: ACETAMINOPHEN 325MG/HYDROcodone 7.5MG/15ML UDC PO PRN (15:32)
[2016-05-17] MEDS: MAGNESIUM SULFATE 1 GM PREMIX 100 ML IV SCH (18:47)
[2016-05-18] VITALS: BP 100/62; PULSE 124; RESP 16; TEMP 98.6; O2SAT 96
[2016-05-18] MEDS: MAGNESIUM SULFATE 1 GM PREMIX 100 ML IV SCH (00:09)
[2016-05-18] MEDS: FREE WATER G-TUBE SCH ×4 (00:10→18:16)
[2016-05-18 04:00] VITALS: BP 106/69; PULSE 115; RESP 16; TEMP 96.8; O2SAT 97
[2016-05-18] MEDS: AMPICILLIN-SULBACTAM INJ 3 GM in SODIUM CHLORIDE 0.9% INJ 100 ML IV SCH ×4 (04:55→21:22)
[2016-05-18] MEDS: ACETAMINOPHEN 325MG/HYDROcodone 7.5MG/15ML UDC PO PRN ×3 (05:04→21:48)
[2016-05-18] MEDS: metroNIDAZOLE 500 MG TAB PO SCH ×3 (05:04→21:22)
[2016-05-18] MEDS: METOCLOPRAMIDE HCL SYRUP 10 MG/10 ML UDC G-TUBE SCH ×4 (06:46→21:15)
[2016-05-18 07:50] VITALS: BP 96/56; PULSE 101; RESP 20; TEMP 97.8; O2SAT 97
[2016-05-18 08:29] LABS: HEMATOCRIT 25.2 % (39.0-51.0); MEAN CELL VOLUME 86.9 FL (80.0-100.0); MEAN CORPUSCULAR HEMOGLOBIN 28.8 PG (27.0-34.0); MEAN CORPUSCULAR HGB CONC 33.1 % (32.0-36.0); PLATELET COUNT 412 TH/MM3 (150-450); RED CELL DISTRIBUTION WIDTH 15.9 % (11.6-17.2); REVIEW FLAG FINAL; WHITE BLOOD COUNT 4.6 TH/MM3 (4.0-11.0)
[2016-05-18 08:32] LABS: ALT (GPT) 10 U/L (12-78); ANION GAP 11 MEQ/L (5-15); AST (GOT) 10 U/L (15-37); BICARBONATE 27.4 MEQ/L (21.0-32.0); BLOOD UREA NITROGEN 9 MG/DL (7-18); CHLORIDE 94 MEQ/L (98-107); GLOMERULAR FILTRATION RATE 258 ML/MIN (>89); MAGNESIUM 1.8 MG/DL (1.5-2.5); POTASSIUM 3.7 MEQ/L (3.5-5.1); SODIUM (NA) 132 MEQ/L (136-145)
[2016-05-18 08:34] LABS: ALKALINE PHOSPHATASE 108 U/L (45-117); TOTAL BILIRUBIN ADULT 0.3 MG/DL (0.2-1.0)
[2016-05-18] MEDS: POTASSIUM CHLORIDE 25 MEQ EFFERVESCENT TAB NG SCH ×2 (11:03→21:15)
--- NOTE | 2016-05-18 11:03 | HHI.PR ---
Subjective Remarks No major overnight events denies cp/sob still with low grade fevers denies abdominal pain, nausea or vomiting denies cough denies cp/sob brother is in room Objective Vitals Vital Signs Date Time Temp Pulse Resp B/P Pulse Ox O2 Delivery O2 Flow Rate FiO2 05/18/16 07:50 97.8 101 20 96/56 97 05/18/16 04:00 96.8 115 16 106/69 97 05/18/16 00:00 98.6 124 16 100/62 96 05/17/16 20:00 97.1 113 16 109/69 98 05/17/16 15:50 100.1 117 20 100/56 98 05/17/16 11:50 98.3 128 20 104/54 96 I/O 05/17/16 05/17/16 05/17/16 05/18/16 05/18/16 05/18/16 06:59 14:59 22:59 06:59 14:59 22:59 Intake Total 0 ml 0 ml 650 ml 400 ml Balance 0 ml 0 ml 650 ml 400 ml Intake Oral 0 ml 0 ml 0 ml 0 ml IV Total 650 ml 400 ml # Voids 2 1 1 1 # Bowel Movements 0 0 0 0 Result Diagram: 05/18/1661705/18/16617 Objective Remarks Gen NAD HEENT: large ulcerating exophytic mass on the right side of the face. mouth is partial shut. Lips cracked. CV RRR. no r/m/g Resp CTA B/L Abd soft NDNT EXT: no edema Procedures central line placement PEG placement bone biopsy teeth extraction Medications and IVs Current Medications Medications (Trade) Dose Ordered Sig/Sara Route Start Time Stop Time Status Last Admin (Zofran Inj) 4 mg Q6H PRN IV PUSH 04/02/16 01:45 05/17/16 09:01 (NS Flush) 2 ml UNSCH PRN IVF 04/02/16 08:15 04/17/16 05:08 (NS Flush) 2 ml BID IVF 04/02/16 09:00 05/17/16 09:00 (Benadryl) 25 mg Q6H PRN PO 04/02/16 09:00 05/17/16 11:32 (Lovenox Inj) 30 mg Q24H SQ 04/04/16 15:30 05/17/16 15:00 (Free Water) VOLUME: 200 ML Q6HR G-TUBE 04/04/16 08:45 05/18/16 05:05 (Tylenol) 650 mg Q4H PRN PO 04/07/16 01:45 05/17/16 04:13 (Morphine Inj) 2 mg Q2HR PRN IV PUSH 04/08/16 09:00 05/17/16 15:00 (Hycet 325-7.5 Mg Liq) 15 ml Q3HR PRN PO 04/08/16 14:45 05/18/16 05:04 (Colace Liq) 100 mg BID PRN GT 04/15/16 12:15 05/11/16 05:08 (Clara-Colace) 2 tab BID G-TUBE 04/15/16 21:00 05/17/16 21:31 (Lactulose Liq) 30 ml TID PRN G-TUBE 04/15/16 12:15 (Dulcolax Supp) 10 mg DAILY PRN ID 04/15/16 12:15 (Milk Of Magnesia Liq) 30 ml Q6H PRN GT 04/15/16 12:15 (Chapstick) 1 applic UNSCH PRN TOP 04/17/16 10:00 04/18/16 00:01 (Mag-Ox) 800 mg Q12HR GT 04/17/16 21:00 05/17/16 21:33 (Reglan Liq) 10 mg ACHS G-TUBE 04/19/16 16:00 05/18/16 06:46 (Miralax) 17 gm DAILY G-TUBE 04/22/16 09:00 05/14/16 08:27 (K-Phos) 500 mg Q12HR PO 04/24/16 12:00 05/17/16 21:31 (Lactinex) 1 tab TID PO 04/24/16 18:00 05/17/16 19:03 (Benadryl Inj) 25 mg Q4H PRN IV 04/26/16 19:00 (Diflucan) 200 mg DAILY PO 05/01/16 15:45 05/17/16 11:32 (Flagyl) 500 mg Q8HR PO 05/01/16 22:00 05/18/16 05:04 (Magic Mouthwash Adult Liq) 5 ml QID SWISH-SWAL 05/01/16 18:00 05/14/16 22:36 Potassium Bicarb/ Potassium Chloride 40 meq 40 meq Q12HR NG 05/04/16 22:00 05/17/16 21:32 (Unasyn Inj/NS Inj) 100 ml @ 200 mls/hr Q6H IV 05/10/16 22:00 05/18/16 04:55 Urinary Catheter: No Vascular Central Line Catheter: No A/P Problem List: (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 Status: Acute (2) Stomatitis and mucositis ICD Code: K12.1 Status: Acute (3) Sepsis ICD Code: A41.9 Status: Acute (4) Leukocytosis ICD Code: D72.829 Status: Resolved (5) Sinus tachycardia ICD Code: R00.0 Status: Acute (6) Hyponatremia ICD Code: E87.1 Status: Acute (7) Hypercalcemia of malignancy ICD Code: E83.52 Status: Acute (8) 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: Acute (9) Electrolyte abnormality ICD Code: E87.8 Status: Acute (10) Severe protein-calorie malnutrition ICD Code: E43 Status: Acute (11) Constipation ICD Code: K59.00 Status: Resolved (12) DNR no code (do not resuscitate) ICD Code: Z66 Status: Acute (13) Palliative care patient ICD Code: Z51.5 Status: Acute (14) Hypomagnesemia ICD Code: E83.42 Status: Acute Plan: sp replacement with IV magnesium sulfate. Magnesium level 1.8. will give 1 gram of IV magnesium to try to keep above 2. Assessment and Plan (1) Squamous cell carcinoma of oropharynx Plan: Patient was admitted to the medical floor. CT of the face showed very large heterogeneous soft tissue mass along the right side of the face with gross destruction involving most of the right mandible. The chest and abdomen with possible lung/liver metastasis. Status post bone biopsy, pathology reported differentiated squamous cell carcinoma. Patient undergoing chemotherapy and radiation therapy for palliation as per oncology recommendations. 05/16 Patient's chemotherapy and radiation therapy on hold due to concerns for radiation dermatitis. Radiation therapy was held for 3 doses last week, plan to resume therapy this week. (2) Stomatitis and mucositis Plan: Concern for radiation dermatitis. Radiation therapy and chemotherapy on hold. Resume as per radiation oncology and medical oncology. (3) Sepsis Plan: Patient still with low-grade fevers with a MAXIMUM TEMPERATURE of 100.6 and tachycardia as well as leukopenia. Possibly right facial wound and central line suspected to be the source. Central line was discontinued. 1 bottle blood cultures with Pseudomonas stutzeri. Patient was treated with IV Zosyn for total of 2 weeks N date 04/20/16. Repeat blood cultures on 26/07, 04/19,05/04, 05/10 all negative x5. Patient was being treated with Levaquin, Flagyl and fluconazole orally. Levaquin was discontinued. The patient is currently being treated with IV Unasyn, oral Flagyl and oral fluconazole. The prior exam handled by attending physician who does not want ID specialist on the case. (4) Leukocytosis Plan: Leukocytosis likely secondary to sepsis as above. Leukocytosis resolved. Continue to monitor CBC with differential. Patient now leukopenic. (5) Sinus tachycardia Plan: TSH within normal limits. Continue to monitor vital signs. Possibly compensatory to anemia. Hemoglobin 6.5 today. Transfuse packed red blood cells. (6) Hyponatremia Plan: Suspected SIADH. Patient looks euvolemic. 05/18 Initially free water was decreased with temporary correction of hyponatremia. sodium now trending down to 132. Check serum and urine osmolality due to worsening hyponatremia. (7) Hypercalcemia of malignancy Plan: Status post treatment with Aredia. Now resolved. Continue to monitor. (8) Anemia due to chemotherapy Plan: Status post PRBC transfusion. Hemoglobin stable at 8.9. Continue to monitor H&H. Transfuse to keep hemoglobin more than 7 . 05/16 hemoglobin today down to 6.5. Likely secondary to chemotherapy. I agree with transfusion of packed red blood cells. (9) Electrolyte abnormality Plan: Patient with hypokalemia, hypomagnesemia and hypophosphatemia likely from nutritional deficiency due to decreased by mouth intake. All have been replaced and corrected - continue to monitor electrolytes. (10) Severe protein-calorie malnutrition Plan: As evidenced by a more low albumin of 1.5, patient not eating much due to location of cancer. Registered dietitian consulting. Follow-up recommendations. Patient currently on Jevity 1.5 with 6 boluses daily which the patient has been tolerating. However the patient has not been gaining weight and dietitian recommends switching to feeding formulas to TwoCal HN. Changes be made. (11) Constipation Plan: Seems to be stable. Continue senna for stress Colace, MiraLAX daily, lactulose when necessary. (12) DNR no code (do not resuscitate) Plan: Patient has DO NOT RESUSCITATE status (13) Palliative care patient Plan: Patient being followed by palliative care. GI prophylaxis: Lactinex, will add PPI. Prophylaxis: SCDs, continue Lovenox continuously. Discharge Planning Most likely a long hospital stay due to severity of cancer. Continue to monitor in the oncology floor, and Kelsey chemotherapy and possible debulking surgery by general surgery. Nirav Preston MD May 18, 2016 11:03
[2016-05-18] MEDS: NYSTAT/DIPHENHY/LIDO MOUTHWASH (Adult) 120ML SWISH-SWAL SCH ×4 (11:04→21:17)
[2016-05-18] MEDS: FLUCONAZOLE 200 MG TAB PO SCH (11:04)
[2016-05-18] MEDS: MAGNESIUM OXIDE 400 MG TAB GT SCH ×2 (11:04→21:16)
[2016-05-18] MEDS: DOCUSATE SODIUM 50 MG/SENNA 8.6 MG TAB G-TUBE SCH ×2 (11:04→21:17)
[2016-05-18] MEDS: LACTOBACILLUS ACIDOPHILUS TAB PO SCH ×3 (11:04→18:16)
[2016-05-18] MEDS: POTASSIUM PHOSPHATE MONOBASIC 500 MG TAB PO SCH ×2 (11:04→21:17)
[2016-05-18] MEDS: POLYETHYLENE GLYCOL 17 GM PKG G-TUBE SCH (11:05)
[2016-05-18] MEDS: SODIUM CHLORIDE 0.9% FLUSH 5 ML FLUSH IVF SCH ×2 (11:05→21:18)
[2016-05-18 11:50] VITALS: BP 115/68; PULSE 112; RESP 20; TEMP 97.9; O2SAT 97
--- NOTE | 2016-05-18 14:08 | EKG ---
Date Performed: 05/17/2016 Time Performed: 12:48:53 PTAGE: 35 years EKG: SINUS TACHYCARDIA ABNORMAL RHYTHM ECG PREVIOUS TRACING : 04/18/2016 07.22 DOCTOR: Thaun Price Interpretating Date/Time 05/18/2016 13:59:34
[2016-05-18 15:50] VITALS: BP 107/61; PULSE 108; RESP 20; TEMP 99.1; O2SAT 98
[2016-05-18] MEDS: ENOXAPARIN SODIUM 30 MG/0.3 ML SYRINGE SQ SCH (18:16)
--- NOTE | 2016-05-18 19:40 | PD.ONC.PN ---
Subjective Subjective Remarks spoke with patient and brother with the help of a healthcare liaison. pain well controled. brother and patient concerned that face swollen and red. Objective Data Date Time Temp Pulse Resp B/P Pulse Ox O2 Delivery O2 Flow Rate FiO2 05/18/16 15:50 99.1 108 20 107/61 98 05/18/16 11:50 97.9 112 20 115/68 97 05/18/16 07:50 97.8 101 20 96/56 97 05/18/16 04:00 96.8 115 16 106/69 97 05/18/16 00:00 98.6 124 16 100/62 96 05/17/16 20:00 97.1 113 16 109/69 98 05/18/16 05/18/16 05/18/16 07:00 15:00 23:00 Intake Total 400 ml 0 ml Balance 400 ml 0 ml Result Diagram: 05/18/1618 05/18/1618 Laboratory Results Laboratory Tests Test 05/18/16 05/18/16 06:18 12:08 White Blood Count 4.6 TH/MM3 Red Blood Count 2.90 MIL/MM3 Hemoglobin 8.3 GM/DL Hematocrit 25.2 % Mean Corpuscular Volume 86.9 FL Mean Corpuscular Hemoglobin 28.8 PG Mean Corpuscular Hemoglobin 33.1 % Concent Red Cell Distribution Width 15.9 % Platelet Count 412 TH/MM3 Mean Platelet Volume 6.4 FL Sodium Level 132 MEQ/L Potassium Level 3.7 MEQ/L Chloride Level 94 MEQ/L Carbon Dioxide Level 27.4 MEQ/L Anion Gap 11 MEQ/L Blood Urea Nitrogen 9 MG/DL Creatinine 0.38 MG/DL Estimat Glomerular Filtration 258 ML/MIN Rate Random Glucose 100 MG/DL Calcium Level 8.5 MG/DL Magnesium Level 1.8 MG/DL Total Bilirubin 0.3 MG/DL Aspartate Amino Transf 10 U/L (AST/SGOT) Alanine Aminotransferase 10 U/L (ALT/SGPT) Alkaline Phosphatase 108 U/L Total Protein 5.8 GM/DL Albumin 1.5 GM/DL Serum Osmolality 273 MOSM/KG Administered Medications Medications (Trade) Dose Ordered Sig/Sara Route PRN Reason Start Time Stop Time Status Last Admin Dose Admin Ondansetron HCl (Zofran Inj) 4 mg Q6H PRN IV PUSH NAUSEA 1/29/17 01:45 05/17/16 09:01 IV Flush (NS Flush) 2 ml UNSCH PRN IVF FLUSH AFTER USING IV ACCESS 04/02/16 08:15 04/17/16 05:08 IV Flush (NS Flush) 2 ml BID IVF 04/02/16 09:00 05/18/16 11:05 Diphenhydramine HCl (Benadryl) 25 mg Q6H PRN PO ITCHING 04/02/16 09:00 05/17/16 11:32 Enoxaparin Sodium (Lovenox Inj) 30 mg Q24H SQ 04/04/16 15:30 05/18/16 18:16 Water (Free Water) VOLUME: 200 ML Q6HR G-TUBE 04/04/16 08:45 05/18/16 18:16 Acetaminophen (Tylenol) 650 mg Q4H PRN PO FEVER OVER 101.0 04/07/16 01:45 05/17/16 04:13 Morphine Sulfate (Morphine Inj) 2 mg Q2HR PRN IV PUSH PAIN SCALE 9 TO 10 04/08/16 09:00 05/17/16 15:00 Acetaminophen/ Hydrocodone Bitart (Hycet 325-7.5 Mg Liq) 15 ml Q3HR PRN PO pain1-9 04/08/16 14:45 05/18/16 18:39 Docusate Sodium (Colace Liq) 100 mg BID PRN GT CONSTIPATION 04/15/16 12:15 05/11/16 05:08 Senna/Docusate Sodium (Clara-Colace) 2 tab BID G-TUBE 04/15/16 21:00 05/18/16 11:04 Padimate O (Chapstick) 1 applic UNSCH PRN TOP DISCOMFORT 04/17/16 10:00 04/18/16 00:01 Magnesium Oxide (Mag-Ox) 800 mg Q12HR GT 04/17/16 21:00 05/18/16 11:04 Metoclopramide HCl (Reglan Liq) 10 mg ACHS G-TUBE 04/19/16 16:00 05/18/16 18:14 Polyethylene Glycol (Miralax) 17 gm DAILY G-TUBE 04/22/16 09:00 05/14/16 08:27 Potassium Phosphate (K-Phos) 500 mg Q12HR PO 04/24/16 12:00 05/18/16 11:04 Lactobacillus Acidophilus (Lactinex) 1 tab TID PO 04/24/16 18:00 05/18/16 18:16 Fluconazole (Diflucan) 200 mg DAILY PO 05/01/16 15:45 05/18/16 11:04 Metronidazole (Flagyl) 500 mg Q8HR PO 05/01/16 22:00 05/18/16 18:16 Multi-Ingredient Mouthwash/Gargle (Magic Mouthwash Adult Liq) 5 ml QID SWISH-SWAL 05/01/16 18:00 05/14/16 22:36 Potassium Bicarb/ Potassium Chloride 40 meq 40 meq Q12HR NG 05/04/16 22:00 05/18/16 11:03 Ampicillin Sodium/ Sulbactam Sodium/ Sodium Chloride (Unasyn Inj/NS Inj) 100 ml @ 200 mls/hr Q6H IV 05/10/16 22:00 05/18/16 18:15 Objective Remarks GENERAL: gaunt SKIN: Warm and dry. tumor much smaller and erythema and swelling due to radiation and large field CARDIOVASCULAR: Regular rate and rhythm without murmurs. RESPIRATORY: Breath sounds equal bilaterally. No accessory muscle use. GASTROINTESTINAL: Abdomen soft, non-tender, nondistended. g tube in place EXTREMITIES: No cyanosis, or edema. MUSCULOSKELETAL: muscle wasting NEUROLOGICAL: No obvious focal deficit. Awake, alert, and oriented x3 Assessment/Plan Assessment 35y/o male with invasive squamous cell carcinoma receiving weekly carbo/taxol and BID XRT. 04/12/16--XRT started; twice daily. 04/13/16: weekly carbo/taxol dose 1 given 04/21/16: weekly carbo/taxol dose 2 given 04/28/16: weekly carbo/taxol dose 3 given 05/05/16:weekly carbo/taxol dose 4 given 05/12/16: Plan HOLD this week carbo/taxol I spoke with Dr. Beaulieu today and will proceed as best as possible with radiation and weekly chemo. Toxicity due to large field, location and extent of tumor. He will receive carbo and taxol in am and will reevaluate next week. Once radiation is complete there is not any additional chemotherapy or radiation planned. Plan 1. There is concern for radiation dermatitis. Per Dr Beaulieu, we will hold XRT on , Sunday and Sunday. Plan to resume on Sunday. 2. While we hold XRT, we will also hold chemotherapy as this is being used as a painter helper spray to radiation. 3. Pain is well controlled with current medications. 4. Continue wound care. Yovany Lezama MD May 18, 2016 19:40
[2016-05-18 21:02] VITALS: BP 101/58; PULSE 109; RESP 16; TEMP 97.3; O2SAT 97
[2016-05-19] VITALS: BP 90/55; PULSE 100; RESP 18; TEMP 98; O2SAT 98
[2016-05-19 04:00] VITALS: BP 122/59; PULSE 117; RESP 18; TEMP 97.8; O2SAT 97
[2016-05-19] MEDS: AMPICILLIN-SULBACTAM INJ 3 GM in SODIUM CHLORIDE 0.9% INJ 100 ML IV SCH ×4 (04:18→23:18)
[2016-05-19] MEDS: METOCLOPRAMIDE HCL SYRUP 10 MG/10 ML UDC G-TUBE SCH ×4 (05:19→21:54)
[2016-05-19] MEDS: metroNIDAZOLE 500 MG TAB PO SCH ×3 (05:19→22:03)
[2016-05-19] MEDS: FREE WATER G-TUBE SCH ×5 (05:20→23:18)
[2016-05-19 07:17] LABS: HEMATOCRIT 25.8 % (39.0-51.0); MEAN CELL VOLUME 86.4 FL (80.0-100.0); MEAN CORPUSCULAR HEMOGLOBIN 28.9 PG (27.0-34.0); MEAN CORPUSCULAR HGB CONC 33.5 % (32.0-36.0); PLATELET COUNT 442 TH/MM3 (150-450); RED BLOOD COUNT 2.98 MIL/MM3 (4.50-5.90); RED CELL DISTRIBUTION WIDTH 15.4 % (11.6-17.2); REVIEW FLAG FINAL; WHITE BLOOD COUNT 4.8 TH/MM3 (4.0-11.0)
[2016-05-19 07:46] LABS: ALT (GPT) 11 U/L (12-78); ANION GAP 10 MEQ/L (5-15); AST (GOT) 12 U/L (15-37); BICARBONATE 27.6 MEQ/L (21.0-32.0); BLOOD UREA NITROGEN 8 MG/DL (7-18); CHLORIDE 98 MEQ/L (98-107); GLOMERULAR FILTRATION RATE 339 ML/MIN (>89); POTASSIUM 3.8 MEQ/L (3.5-5.1); SODIUM (NA) 136 MEQ/L (136-145)
[2016-05-19 07:50] LABS: ALKALINE PHOSPHATASE 103 U/L (45-117); TOTAL BILIRUBIN ADULT 0.3 MG/DL (0.2-1.0)
[2016-05-19 08:00] VITALS: BP 107/62; PULSE 109; RESP 16; TEMP 98; O2SAT 97
--- NOTE | 2016-05-19 08:58 | PD.ONC.PN ---
Subjective Subjective Remarks Afebrile overnight. Patient resting comfortably with brother at bedside. Objective Data Date Time Temp Pulse Resp B/P Pulse Ox O2 Delivery O2 Flow Rate FiO2 05/19/16 04:00 97.8 117 18 122/59 97 05/19/16 00:00 98.0 100 18 90/55 98 05/18/16 21:02 97.3 109 16 101/58 97 05/18/16 15:50 99.1 108 20 107/61 98 05/18/16 11:50 97.9 112 20 115/68 97 05/19/16 05/19/16 05/19/16 07:00 15:00 23:00 Intake Total 400 ml Balance 400 ml Result Diagram: 05/19/16 0623 05/19/16 0623 Laboratory Results Laboratory Tests Test 05/18/16 05/18/16 05/19/16 12:08 18:35 06:23 Serum Osmolality 273 MOSM/KG Urine Osmolality 674 MOSM/KG White Blood Count 4.8 TH/MM3 Red Blood Count 2.98 MIL/MM3 Hemoglobin 8.6 GM/DL Hematocrit 25.8 % Mean Corpuscular Volume 86.4 FL Mean Corpuscular Hemoglobin 28.9 PG Mean Corpuscular Hemoglobin 33.5 % Concent Red Cell Distribution Width 15.4 % Platelet Count 442 TH/MM3 Mean Platelet Volume 6.1 FL Sodium Level 136 MEQ/L Potassium Level 3.8 MEQ/L Chloride Level 98 MEQ/L Carbon Dioxide Level 27.6 MEQ/L Anion Gap 10 MEQ/L Blood Urea Nitrogen 8 MG/DL Creatinine 0.30 MG/DL Estimat Glomerular Filtration 339 ML/MIN Rate Random Glucose 103 MG/DL Calcium Level 8.7 MG/DL Total Bilirubin 0.3 MG/DL Aspartate Amino Transf 12 U/L (AST/SGOT) Alanine Aminotransferase 11 U/L (ALT/SGPT) Alkaline Phosphatase 103 U/L Total Protein 5.9 GM/DL Albumin 1.4 GM/DL Administered Medications Medications (Trade) Dose Ordered Sig/Sara Route PRN Reason Start Time Stop Time Status Last Admin Dose Admin Ondansetron HCl (Zofran Inj) 4 mg Q6H PRN IV PUSH NAUSEA 04/02/16 01:45 05/17/16 09:01 IV Flush (NS Flush) 2 ml UNSCH PRN IVF FLUSH AFTER USING IV ACCESS 04/02/16 08:15 04/17/16 05:08 IV Flush (NS Flush) 2 ml BID IVF 04/02/16 09:00 05/18/16 21:18 Diphenhydramine HCl (Benadryl) 25 mg Q6H PRN PO ITCHING 04/02/16 09:00 05/17/16 11:32 Enoxaparin Sodium (Lovenox Inj) 30 mg Q24H SQ 04/04/16 15:30 05/18/16 18:16 Water (Free Water) VOLUME: 200 ML Q6HR G-TUBE 04/04/16 08:45 05/19/16 05:20 Acetaminophen (Tylenol) 650 mg Q4H PRN PO FEVER OVER 101.0 04/07/16 01:45 05/17/16 04:13 Morphine Sulfate (Morphine Inj) 2 mg Q2HR PRN IV PUSH PAIN SCALE 9 TO 10 04/08/16 09:00 05/17/16 15:00 Acetaminophen/ Hydrocodone Bitart (Hycet 325-7.5 Mg Liq) 15 ml Q3HR PRN PO pain1-9 04/08/16 14:45 05/18/16 21:48 Docusate Sodium (Colace Liq) 100 mg BID PRN GT CONSTIPATION 04/15/16 12:15 05/11/16 05:08 Senna/Docusate Sodium (Clara-Colace) 2 tab BID G-TUBE 04/15/16 21:00 05/18/16 11:04 Padimate O (Chapstick) 1 applic UNSCH PRN TOP DISCOMFORT 04/17/16 10:00 04/18/16 00:01 Magnesium Oxide (Mag-Ox) 800 mg Q12HR GT 04/17/16 21:00 05/18/16 21:16 Metoclopramide HCl (Reglan Liq) 10 mg ACHS G-TUBE 04/19/16 16:00 05/19/16 05:19 Polyethylene Glycol (Miralax) 17 gm DAILY G-TUBE 04/22/16 09:00 05/14/16 08:27 Potassium Phosphate (K-Phos) 500 mg Q12HR PO 04/24/16 12:00 05/18/16 21:17 Lactobacillus Acidophilus (Lactinex) 1 tab TID PO 04/24/16 18:00 05/18/16 18:16 Fluconazole (Diflucan) 200 mg DAILY PO 05/01/16 15:45 05/18/16 11:04 Metronidazole (Flagyl) 500 mg Q8HR PO 05/01/16 22:00 05/19/16 05:19 Multi-Ingredient Mouthwash/Gargle (Magic Mouthwash Adult Liq) 5 ml QID SWISH-SWAL 05/01/16 18:00 05/14/16 22:36 Potassium Bicarb/ Potassium Chloride 40 meq 40 meq Q12HR NG 05/04/16 22:00 05/18/16 21:15 Ampicillin Sodium/ Sulbactam Sodium/ Sodium Chloride (Unasyn Inj/NS Inj) 100 ml @ 200 mls/hr Q6H IV 05/10/16 22:00 05/19/16 04:18 Objective Remarks GENERAL: Chronically ill appearing male, lying in bed upright. SKIN: Warm and dry. HEAD: Normocephalic. large tumor, right face, surrounded with clean bandages. EYES: No injection or drainage. NECK: Supple, trachea midline. CARDIOVASCULAR: Regular rate and rhythm RESPIRATORY: Breath sounds equal bilaterally. No accessory muscle use. GASTROINTESTINAL: Abdomen soft, non-tender, nondistended. EXTREMITIES: No cyanosis NEUROLOGICAL: awake, able to move extremities. Assessment/Plan Assessment 35y/o male with invasive squamous cell carcinoma receiving weekly carbo/taxol and BID XRT. 04/12/16--XRT started; twice daily. 04/13/16: weekly carbo/taxol dose 1 given 04/21/16: weekly carbo/taxol dose 2 given 04/28/16: weekly carbo/taxol dose 3 given 05/05/16:weekly carbo/taxol dose 4 given 05/12/16: Plan HOLD this week carbo/taxol 05/19/16: weekly carbo/taxol dose 5 today. Plan 1. resume chemotherapy today 2. monitor CBC, BMP 3. discussed with patient and brother plans to resume chemotherapy today. discussed our hope that the swelling will continue to reduce after radiation is complete. we will continue hoping for the best, prognosis remains poor. Attending Statement The exam, history, and the medical decision-making described in the above note were completed with the assistance of the mid-level provider. I reviewed and agree with the findings presented. I attest that I had a pdba-[id number] encounter with the patient on the same day, and personally performed and documented my assessment and findings in the medical record. no change in exam from yesterday and again reviewed plans to resume tx and continue to tolerance then give break. Will plan on next cycle of chemo next week if he is well enough to tolerate otherwise will hold. Spoke to brother and patient about our desire to do the best for him but indicating we do not have control of the outcome. Sirisha Cotton May 19, 2016 08:58 Yovany Lezama MD May 19, 2016 18:12
--- NOTE | 2016-05-19 09:34 | HHI.PR ---
Subjective Remarks Patient c/o nausea sp diarrhea x2 denies vomiting sp radiation therapy Objective Vitals Vital Signs Date Time Temp Pulse Resp B/P Pulse Ox O2 Delivery O2 Flow Rate FiO2 05/19/16 04:00 97.8 117 18 122/59 97 05/19/16 00:00 98.0 100 18 90/55 98 05/18/16 21:02 97.3 109 16 101/58 97 05/18/16 15:50 99.1 108 20 107/61 98 05/18/16 11:50 97.9 112 20 115/68 97 I/O 05/18/16 05/18/16 05/18/16 05/19/16 05/19/16 05/19/16 07:00 15:00 23:00 07:00 15:00 23:00 Intake Total 400 ml 0 ml 1180 ml 400 ml Output Total 0 ml Balance 400 ml 0 ml 1180 ml 400 ml Intake Oral 0 ml 0 ml IV Total 400 ml Tube Feeding 600 ml Other 580 ml 400 ml Tube Feeding Residual Discard 0 ml # Voids 1 8 4 # Bowel Movements 0 4 2 Result Diagram: 05/19/16 0623 05/19/16 0623 Imaging Last Impressions Chest X-Ray 05/10/16 0000 Signed Impressions: Service Date/Time: Tuesday, May 10, 2016 00:10 - CONCLUSION: No acute cardiopulmonary process. Demetrio Pressley MD Liver Ultrasound 04/12/16 0000 Signed Impressions: Service Date/Time: Tuesday, April 12, 2016 22:29 - CONCLUSION: 1. Solid indeterminate mass in the left lobe of the liver as well as a tiny cyst. An MRI of the abdomen with without contrast may be helpful for further assessment if felt clinically warranted. The possibility of a metastatic lesion is not excluded. 2. Cholelithiasis. 3. Bilateral pleural effusions are suspected sonographically. Chau Ward MD Chest CT 04/11/16 0000 Signed Impressions: Service Date/Time: Monday, April 11, 2016 14:09 - CONCLUSION: 1. Multiple small scattered noncalcified pulmonary nodules which are nonspecific but are of concern for early metastatic disease. 2. The known large tumor mass in the right side of the face and neck is partially visualized with destructive change involving the right side of the mandible. This extends into the right supraclavicular region. Please see soft tissue neck CT for further details. 3. Low attenuation lesion in the left lobe of the liver again noted. Holland Villegas MD Abdomen/Pelvis CT 04/11/16 0000 Signed Impressions: Service Date/Time: Monday, April 11, 2016 14:09 - CONCLUSION: 1. 1.4 cm low-attenuation lesion left lobe of the liver of concern for a metastasis. There is a smaller more cystic appearing structure in the right lobe. 2. The remainder of the study is unremarkable except for a PEG tube in the stomach. Holland Villegas MD Upper Extremity Ultrasound 04/08/16 0000 Signed Impressions: Service Date/Time: Friday, April 08, 2016 13:04 - CONCLUSION: No thrombus. Deshawn Michele MD Neck CT 04/02/16 0000 Signed Impressions: Service Date/Time: Saturday, April 02, 2016 11:54 - CONCLUSION: Very large heterogeneous soft tissue mass along the right side of the face with gross destruction involving most of the right mandible. The mass contains amorphous calcifications and appears to involve the right sternocleidomastoid muscle. The mass appears to extend into the oral cavity with diffuse enlargement of the right tonsillar pillar. Neoplastic disease in the primary consideration. Niall Corrales MD Multiplanar Reconstruction 04/02/16 0000 Signed Impressions: Service Date/Time: Saturday, April 02, 2016 11:54 - CONCLUSION: 3-D reconstructive images demonstrating destruction involving most the right side of the mandible. Niall Corrales MD Head CT 04/02/16 0000 Signed Impressions: Service Date/Time: Saturday, April 02, 2016 11:54 - CONCLUSION: 1. Unremarkable CT scan of the brain 2. Large abnormal soft tissue mass with calcifications along the right side of the face. Niall Corrales MD Objective Remarks Gen NAD HEENT: large ulcerating exophytic mass on the right side of the face. mouth is partial shut. Lips cracked. CV RRR. no r/m/g Resp CTA B/L Abd soft NDNT EXT: no edema Procedures central line placement PEG placement bone biopsy teeth extraction Medications and IVs Current Medications Medications (Trade) Dose Ordered Sig/Sara Route Start Time Stop Time Status Last Admin (Zofran Inj) 4 mg Q6H PRN IV PUSH 04/02/16 01:45 05/17/16 09:01 (NS Flush) 2 ml UNSCH PRN IVF 04/02/16 08:15 04/17/16 05:08 (NS Flush) 2 ml BID IVF 04/02/16 09:00 05/19/16 11:02 (Benadryl) 25 mg Q6H PRN PO 04/02/16 09:00 05/17/16 11:32 (Lovenox Inj) 30 mg Q24H SQ 04/04/16 15:30 05/18/16 18:16 (Free Water) VOLUME: 200 ML Q6HR G-TUBE 04/04/16 08:45 05/19/16 11:02 (Tylenol) 650 mg Q4H PRN PO 04/07/16 01:45 05/17/16 04:13 (Morphine Inj) 2 mg Q2HR PRN IV PUSH 04/08/16 09:00 05/17/16 15:00 (Hycet 325-7.5 Mg Liq) 15 ml Q3HR PRN PO 04/08/16 14:45 05/19/16 11:27 (Colace Liq) 100 mg BID PRN GT 04/15/16 12:15 05/11/16 05:08 (Clara-Colace) 2 tab BID G-TUBE 04/15/16 21:00 05/18/16 11:04 (Lactulose Liq) 30 ml TID PRN G-TUBE 04/15/16 12:15 (Dulcolax Supp) 10 mg DAILY PRN [place] 04/15/16 12:15 (Milk Of Magnesia Liq) 30 ml Q6H PRN GT 04/15/16 12:15 (Chapstick) 1 applic UNSCH PRN TOP 04/17/16 10:00 04/18/16 00:01 (Mag-Ox) 800 mg Q12HR GT 04/17/16 21:00 05/19/16 11:02 (Reglan Liq) 10 mg ACHS G-TUBE 04/19/16 16:00 05/19/16 11:02 (Miralax) 17 gm DAILY G-TUBE 04/22/16 09:00 05/14/16 08:27 (K-Phos) 500 mg Q12HR PO 04/24/16 12:00 05/19/16 11:01 (Lactinex) 1 tab TID PO 04/24/16 18:00 05/19/16 11:01 (Benadryl Inj) 25 mg Q4H PRN IV 04/26/16 19:00 (Diflucan) 200 mg DAILY PO 05/01/16 15:45 05/19/16 11:02 (Flagyl) 500 mg Q8HR PO 05/01/16 22:00 05/19/16 05:19 (Magic Mouthwash Adult Liq) 5 ml QID SWISH-SWAL 05/01/16 18:00 05/14/16 22:36 Potassium Bicarb/ Potassium Chloride 40 meq 40 meq Q12HR NG 05/04/16 22:00 05/19/16 11:01 Ampicillin Sodium/ Sulbactam Sodium 3 gm/Sodium Chloride 100 ml @ 200 mls/hr Q6H IV 05/10/16 22:00 05/19/16 11:01 Sodium Chloride 250 ml @ 0 mls/hr ONCE IV 05/19/16 12:30 05/21/16 12:29 Paclitaxel 67.95 mg/Sodium Chloride 261.325 ml @ 261.175 mls/hr ONCE ONCE IV 05/19/16 16:00 05/19/16 17:00 (Paraplatin Inj/ NS 250 ml Inj) 250 ml @ 500 mls/hr ONCE ONCE IV 05/19/16 17:00 05/19/16 17:29 A/P Problem List: (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 Status: Acute (2) Stomatitis and mucositis ICD Code: K12.1 Status: Acute (3) Sepsis ICD Code: A41.9 Status: Acute (4) Leukocytosis ICD Code: D72.829 Status: Resolved (5) Sinus tachycardia ICD Code: R00.0 Status: Acute (6) Hyponatremia ICD Code: E87.1 Status: Acute (7) Hypercalcemia of malignancy ICD Code: E83.52 Status: Acute (8) 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: Acute (9) Electrolyte abnormality ICD Code: E87.8 Status: Acute (10) Severe protein-calorie malnutrition ICD Code: E43 Status: Acute (11) Constipation ICD Code: K59.00 Status: Resolved (12) DNR no code (do not resuscitate) ICD Code: Z66 Status: Acute (13) Palliative care patient ICD Code: Z51.5 Status: Acute (14) Hypomagnesemia ICD Code: E83.42 Status: Acute (15) Nausea ICD Code: R11.0 Status: Acute Plan: Likely secondary to radiation therapy. Continue Zofran,Granisetron ordered by medical oncology. 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 Assessment and Plan (1) Squamous cell carcinoma of oropharynx Plan: Patient was admitted to the medical floor. CT of the face showed very large heterogeneous soft tissue mass along the right side of the face with gross destruction involving most of the right mandible. The chest and abdomen with possible lung/liver metastasis. Status post bone biopsy, pathology reported differentiated squamous cell carcinoma. Patient undergoing chemotherapy and radiation therapy for palliation as per oncology recommendations. 05/16 Patient's chemotherapy and radiation therapy on hold due to concerns for radiation dermatitis. Radiation therapy was held for 3 doses last week, plan to resume therapy this week. 05/19 Chemotherapy resumed today. Patient already on radiation therapy tolerating it. (2) Stomatitis and mucositis Plan: Concern for radiation dermatitis. Radiation and chemotherapy held last week. Radiation therapy was resumed this week and chemotherapy today on 05/19/16. (3) Sepsis Plan: Patient was having low-grade fevers which have not come back since . Possibly right facial wound and central line suspected to be the source. Central line was discontinued. 1 bottle blood cultures with Pseudomonas stutzeri. Patient was treated with IV Zosyn for total of 2 weeks N date 04/20/16. Repeat blood cultures on 26/07, 04/19,05/04, 05/10 all negative x5. Patient was being treated with Levaquin, Flagyl and fluconazole orally. Levaquin was discontinued. The patient is currently being treated with IV Unasyn, oral Flagyl and oral fluconazole. The prior exam handled by attending physician who does not want ID specialist on the case. (4) Leukocytosis Plan: Leukocytosis likely secondary to sepsis as above. Leukocytosis resolved. Continue to monitor CBC with differential. Patient now leukopenic. (5) Sinus tachycardia Plan: TSH within normal limits. Continue to monitor vital signs. Possibly compensatory to anemia. Patient status post infusion of packed red blood cells after hemoglobin dropped to 6.5. However patient still with sinus tachycardia. Continue to monitor vital signs. (6) Hyponatremia Plan: Suspected SIADH. Patient looks euvolemic. 05/18 Initially free water was decreased with temporary correction of hyponatremia. sodium now trending down to 132. Check serum and urine osmolality due to worsening hyponatremia. 05/19 sodium much improved and trending up, today 136. Urine and serum aspartate consistent with SIADH which is likely secondary to nausea. Continue to monitor BMP and sodium. Free water was discontinued. (7) Hypercalcemia of malignancy Plan: Status post treatment with Aredia. Now resolved. Continue to monitor. (8) Anemia due to chemotherapy Plan: Status post PRBC transfusion. Hemoglobin stable at 8.9. Continue to monitor H&H. Transfuse to keep hemoglobin more than 7 . 05/16 hemoglobin today down to 6.5. Likely secondary to chemotherapy. Improved after transfusion of 2 units of packed red blood cells. Hemoglobin now 8.6 and stable for several days after the fusion. Continue to monitor CBC. (9) Electrolyte abnormality Plan: Patient with hypokalemia, hypomagnesemia and hypophosphatemia likely from nutritional deficiency due to decreased by mouth intake. All have been replaced and corrected - continue to monitor electrolytes. (10) Severe protein-calorie malnutrition Plan: As evidenced by a more low albumin of 1.5, patient not eating much due to location of cancer. Registered dietitian consulting. Follow-up recommendations. Patient currently on Jevity 1.5 with 6 boluses daily which the patient has been tolerating. However the patient has not been gaining weight and dietitian recommends switching to feeding formulas to TwoCal HN. Changes be made. (11) Constipation Plan: Seems to be stable. Continue senna for stress Colace, MiraLAX daily, lactulose when necessary. (12) DNR no code (do not resuscitate) Plan: Patient has DO NOT RESUSCITATE status (13) Palliative care patient Plan: Patient being followed by palliative care. GI prophylaxis: Lactinex, will add PPI. Prophylaxis: SCDs, continue Lovenox continuously. Discharge Planning Most likely a long hospital stay due to severity of cancer. Continue to monitor in the oncology floor, and Kelsey chemotherapy and possible debulking surgery by general surgery. Nirav Preston MD May 19, 2016 09:34
[2016-05-19] MEDS: POTASSIUM CHLORIDE 25 MEQ EFFERVESCENT TAB NG SCH ×2 (11:01→21:50)
[2016-05-19] MEDS: LACTOBACILLUS ACIDOPHILUS TAB PO SCH ×3 (11:01→18:00)
[2016-05-19] MEDS: POTASSIUM PHOSPHATE MONOBASIC 500 MG TAB PO SCH ×2 (11:01→21:50)
[2016-05-19] MEDS: SODIUM CHLORIDE 0.9% FLUSH 5 ML FLUSH IVF SCH ×2 (11:02→22:01)
[2016-05-19] MEDS: POLYETHYLENE GLYCOL 17 GM PKG G-TUBE SCH (11:02)
[2016-05-19] MEDS: NYSTAT/DIPHENHY/LIDO MOUTHWASH (Adult) 120ML SWISH-SWAL SCH ×4 (11:02→21:00)
[2016-05-19] MEDS: MAGNESIUM OXIDE 400 MG TAB GT SCH ×2 (11:02→21:50)
[2016-05-19] MEDS: FLUCONAZOLE 200 MG TAB PO SCH (11:02)
[2016-05-19] MEDS: DOCUSATE SODIUM 50 MG/SENNA 8.6 MG TAB G-TUBE SCH ×2 (11:02→21:00)
[2016-05-19] MEDS: ACETAMINOPHEN 325MG/HYDROcodone 7.5MG/15ML UDC PO PRN ×2 (11:27→22:07)
[2016-05-19 12:00] VITALS: BP 108/58; PULSE 115; RESP 16; TEMP 98.1; O2SAT 97
[2016-05-19] MEDS ORDERED: GRANISETRON HCL 1 MG/ML VIAL IV ONE (15:00)
[2016-05-19] MEDS ORDERED: DEXAMETHASONE INJ 10 MG in SODIUM CHLORIDE 0.9% INJ 50 ML IV ONE (15:00)
[2016-05-19] MEDS ORDERED: diphenhydrAMINE HCL 25 MG CAP PO ONE (15:00)
[2016-05-19] MEDS ORDERED: FAMOTIDINE 20 MG/2 ML VIAL IV ONE (15:00)
--- NOTE | 2016-05-19 15:56 | HHI.PR ---
Subjective Subjective Notes Resting in bed Brother Cadir at bedside Objective Vitals/I&O Vital Signs Date Time Temp Pulse Resp B/P Pulse Ox O2 Delivery O2 Flow Rate FiO2 05/19/16 12:00 98.1 115 16 108/58 97 Labs Laboratory Tests Test 05/18/16 05/19/16 18:35 06:23 Urine Osmolality 674 White Blood Count 4.8 Red Blood Count 2.98 Hemoglobin 8.6 Hematocrit 25.8 Mean Corpuscular Volume 86.4 Mean Corpuscular Hemoglobin 28.9 Mean Corpuscular Hemoglobin 33.5 Concent Red Cell Distribution Width 15.4 Platelet Count 442 Mean Platelet Volume 6.1 Sodium Level 136 Potassium Level 3.8 Chloride Level 98 Carbon Dioxide Level 27.6 Anion Gap 10 Blood Urea Nitrogen 8 Creatinine 0.30 Estimat Glomerular Filtration 339 Rate Random Glucose 103 Calcium Level 8.7 Total Bilirubin 0.3 Aspartate Amino Transf 12 (AST/SGOT) Alanine Aminotransferase 11 (ALT/SGPT) Alkaline Phosphatase 103 Total Protein 5.9 Albumin 1.4 Cardiovascular: Regular Lungs: Clear Abdomen: Non-distended, Non-tender, Other (PEG in place ) Narrative Exam Face: large RIGHT sided facial malignancy A/P Assessment and Plan 35 year old male with large oropharyngeal cancer -Continue Chemo/Radiation -Spoke with JIMMY Muir about timing of surgery -s/p PEG placement -s/p biopsy of mass -Tolerating bolus feedings I certify and attest that I personally examined this patient with Ms. Stapleton who documented our visit in the EMR and entered orders under my direct supervision. I reviewed the care plan with the nursing staff and family if present. HAYDEN OSEGUERA MD [facility] Brittnee StapletonP May 19, 2016 15:56 Hayden Oseguera MD May 24, 2016 14:32
[2016-05-19 16:00] VITALS: BP 113/60; PULSE 103; RESP 16; TEMP 97.7; O2SAT 99
[2016-05-19] MEDS: ENOXAPARIN SODIUM 30 MG/0.3 ML SYRINGE SQ SCH (16:00)
[2016-05-19] MEDS ORDERED: SODIUM CHLOR 0.9% IV ONE ×2 (16:00→17:00)
[2016-05-19] MEDS ORDERED: PACLITAXEL IV ONE (16:00)
[2016-05-19] MEDS ORDERED: CARBOPLATIN IV ONE (17:00)
[2016-05-19] MEDS: SODIUM CHLOR 0.9% 250 ML INJ 250 ML IV SCH (19:08)
[2016-05-19 20:00] VITALS: BP 109/69; PULSE 109; RESP 17; TEMP 97; O2SAT 96
[2016-05-20] VITALS: BP 98/61; PULSE 99; RESP 16; TEMP 96; O2SAT 97
[2016-05-20 04:00] VITALS: BP 107/57; PULSE 85; RESP 16; TEMP 96; O2SAT 96
[2016-05-20] MEDS: AMPICILLIN-SULBACTAM INJ 3 GM in SODIUM CHLORIDE 0.9% INJ 100 ML IV SCH ×4 (04:29→23:12)
[2016-05-20] MEDS: FREE WATER G-TUBE SCH ×4 (05:32→23:13)
[2016-05-20] MEDS: ACETAMINOPHEN 325MG/HYDROcodone 7.5MG/15ML UDC PO PRN ×2 (05:41→23:12)
[2016-05-20] MEDS: metroNIDAZOLE 500 MG TAB PO SCH ×3 (05:42→23:12)
[2016-05-20] MEDS: METOCLOPRAMIDE HCL SYRUP 10 MG/10 ML UDC G-TUBE SCH ×4 (05:42→19:53)
[2016-05-20 07:49] LABS: BASOPHIL % 0.1 % (0.0-2.0); HEMATOCRIT 26.6 % (39.0-51.0); LYMPH % 3.4 % (9.0-44.0); LYMPHOCYTE # 0.1 TH/MM3 (1.0-4.8); MEAN CORPUSCULAR HEMOGLOBIN 29.3 PG (27.0-34.0); MEAN CORPUSCULAR HGB CONC 33.3 % (32.0-36.0); MONO % 1.1 % (0.0-8.0); NEUT % 95.4 % (16.0-70.0); PLATELET COUNT 471 TH/MM3 (150-450); RED BLOOD COUNT 3.02 MIL/MM3 (4.50-5.90); RED CELL DISTRIBUTION WIDTH 15.2 % (11.6-17.2); WHITE BLOOD COUNT 3.2 TH/MM3 (4.0-11.0)
[2016-05-20 08:11] LABS: ALKALINE PHOSPHATASE 100 U/L (45-117); ALT (GPT) 10 U/L (12-78); ANION GAP 11 MEQ/L (5-15); AST (GOT) 14 U/L (15-37); BICARBONATE 25.2 MEQ/L (21.0-32.0); BLOOD UREA NITROGEN 12 MG/DL (7-18); CHLORIDE 102 MEQ/L (98-107); GLOMERULAR FILTRATION RATE 243 ML/MIN (>89); MAGNESIUM 1.8 MG/DL (1.5-2.5); POTASSIUM 4.3 MEQ/L (3.5-5.1); SODIUM (NA) 138 MEQ/L (136-145); TOTAL BILIRUBIN ADULT 0.2 MG/DL (0.2-1.0)
[2016-05-20 08:27] LABS: HEMO FLAGS AUTO DIFF
[2016-05-20 08:44] VITALS: BP 106/60; PULSE 86; RESP 18; TEMP 96.1; O2SAT 97
[2016-05-20] MEDS: DOCUSATE SODIUM 50 MG/SENNA 8.6 MG TAB G-TUBE SCH ×2 (09:00→19:53)
[2016-05-20] MEDS: POLYETHYLENE GLYCOL 17 GM PKG G-TUBE SCH (09:00)
[2016-05-20] MEDS: NYSTAT/DIPHENHY/LIDO MOUTHWASH (Adult) 120ML SWISH-SWAL SCH ×4 (09:00→19:54)
[2016-05-20 09:35] LABS: ACANTHOCYTES OCC (NORMAL); PLATELET ESTIMATE SMEAR HIGH (NORMAL); PLATELET MORPHOLOGY NORMAL (NORMAL); SCAN/DIFF AUTO DIFF CONFIRMED
[2016-05-20] MEDS: LACTOBACILLUS ACIDOPHILUS TAB PO SCH ×3 (09:44→18:01)
[2016-05-20] MEDS: MAGNESIUM OXIDE 400 MG TAB GT SCH ×2 (09:44→19:53)
[2016-05-20] MEDS: FLUCONAZOLE 200 MG TAB PO SCH (09:44)
[2016-05-20] MEDS: POTASSIUM CHLORIDE 25 MEQ EFFERVESCENT TAB NG SCH ×2 (09:45→19:53)
[2016-05-20] MEDS: SODIUM CHLORIDE 0.9% FLUSH 5 ML FLUSH IVF SCH ×2 (09:45→19:54)
[2016-05-20] MEDS: POTASSIUM PHOSPHATE MONOBASIC 500 MG TAB PO SCH ×2 (09:45→19:53)
[2016-05-20] MEDS: SODIUM CHLOR 0.9% 250 ML INJ 250 ML IV SCH (11:12)
[2016-05-20 11:59] VITALS: BP 118/68; PULSE 85; RESP 18; TEMP 96.2; O2SAT 97
--- NOTE | 2016-05-20 14:21 | HHI.PR ---
Subjective Remarks Deferred entry - patient seen earlier at 10:15 am Patient denies nausea or vomiting afebrile denies cp/sob Patient's brother is at bedside. Objective Vitals Vital Signs Date Time Temp Pulse Resp B/P Pulse Ox O2 Delivery O2 Flow Rate FiO2 05/20/16 11:59 96.2 85 18 118/68 97 05/20/16 08:44 96.1 86 18 106/60 97 05/20/16 06:47 20 05/20/16 04:00 96.0 85 16 107/57 96 05/20/16 00:00 96.0 99 16 98/61 97 05/19/16 20:00 97.0 109 17 109/69 96 05/19/16 16:00 97.7 103 16 113/60 99 I/O 05/19/16 05/19/16 05/19/16 05/20/16 05/20/16 05/20/16 07:00 15:00 23:00 07:00 15:00 23:00 Intake Total 400 ml Balance 400 ml Other 400 ml # Voids 4 2 1 # Bowel Movements 2 Result Diagram: 05/20/16 0633 05/20/16 0633 Imaging Last Impressions Chest X-Ray 05/10/16 0000 Signed Impressions: Service Date/Time: Tuesday, May 10, 2016 00:10 - CONCLUSION: No acute cardiopulmonary process. Demetrio Pressley MD Liver Ultrasound 04/12/16 0000 Signed Impressions: Service Date/Time: Tuesday, April 12, 2016 22:29 - CONCLUSION: 1. Solid indeterminate mass in the left lobe of the liver as well as a tiny cyst. An MRI of the abdomen with without contrast may be helpful for further assessment if felt clinically warranted. The possibility of a metastatic lesion is not excluded. 2. Cholelithiasis. 3. Bilateral pleural effusions are suspected sonographically. Chau Ward MD Chest CT 04/11/16 0000 Signed Impressions: Service Date/Time: Monday, April 11, 2016 14:09 - CONCLUSION: 1. Multiple small scattered noncalcified pulmonary nodules which are nonspecific but are of concern for early metastatic disease. 2. The known large tumor mass in the right side of the face and neck is partially visualized with destructive change involving the right side of the mandible. This extends into the right supraclavicular region. Please see soft tissue neck CT for further details. 3. Low attenuation lesion in the left lobe of the liver again noted. Holland Villegas MD Abdomen/Pelvis CT 04/11/16 Signed Impressions: Service Date/Time: Monday, April 11, 2016 14:09 - CONCLUSION: 1. 1.4 cm low-attenuation lesion left lobe of the liver of concern for a metastasis. There is a smaller more cystic appearing structure in the right lobe. 2. The remainder of the study is unremarkable except for a PEG tube in the stomach. Holland Villegas MD Upper Extremity Ultrasound 04/08/16 0000 Signed Impressions: Service Date/Time: Friday, April 08, 2016 13:04 - CONCLUSION: No thrombus. Deshawn Michele MD Neck CT 04/02/16 0000 Signed Impressions: Service Date/Time: Saturday, April 02, 2016 11:54 - CONCLUSION: Very large heterogeneous soft tissue mass along the right side of the face with gross destruction involving most of the right mandible. The mass contains amorphous calcifications and appears to involve the right sternocleidomastoid muscle. The mass appears to extend into the oral cavity with diffuse enlargement of the right tonsillar pillar. Neoplastic disease in the primary consideration. Niall Corrales MD Multiplanar Reconstruction 04/02/16 Signed Impressions: Service Date/Time: Saturday, April 02, 2016 11:54 - CONCLUSION: 3-D reconstructive images demonstrating destruction involving most the right side of the mandible. Niall Corrales MD Head CT 04/02/16 0000 Signed Impressions: Service Date/Time: Saturday, April 02, 2016 11:54 - CONCLUSION: 1. Unremarkable CT scan of the brain 2. Large abnormal soft tissue mass with calcifications along the right side of the face. Niall Corrales MD Objective Remarks Gen NAD HEENT: large ulcerating exophytic mass on the right side of the face. mouth is partial shut. Lips cracked. CV RRR. no r/m/g Resp CTA B/L Abd soft NDNT EXT: no edema Procedures central line placement PEG placement bone biopsy teeth extraction Medications and IVs Current Medications Medications (Trade) Dose Ordered Sig/Sara Route Start Time Stop Time Status Last Admin (Zofran Inj) 4 mg Q6H PRN IV PUSH 04/02/16 01:45 05/17/16 09:01 (NS Flush) 2 ml UNSCH PRN IVF 04/02/16 08:15 04/17/16 05:08 (NS Flush) 2 ml BID IVF 04/02/16 09:00 05/20/16 09:45 (Benadryl) 25 mg Q6H PRN PO 04/02/16 09:00 05/17/16 11:32 (Lovenox Inj) 30 mg Q24H SQ 04/04/16 15:30 05/19/16 16:00 (Free Water) VOLUME: 200 ML Q6HR G-TUBE 04/04/16 08:45 05/20/16 11:04 (Tylenol) 650 mg Q4H PRN PO 04/07/16 01:45 05/17/16 04:13 (Morphine Inj) 2 mg Q2HR PRN IV PUSH 04/08/16 09:00 05/17/16 15:00 (Hycet 325-7.5 Mg Liq) 15 ml Q3HR PRN PO 04/08/16 14:45 05/20/16 05:41 (Colace Liq) 100 mg BID PRN GT 04/15/16 12:15 05/11/16 05:08 (Clara-Colace) 2 tab BID G-TUBE 04/15/16 21:00 05/18/16 11:04 (Lactulose Liq) 30 ml TID PRN G-TUBE 04/15/16 12:15 (Dulcolax Supp) 10 mg DAILY PRN [place] 04/15/16 12:15 (Milk Of Magnesia Liq) 30 ml Q6H PRN GT 04/15/16 12:15 (Chapstick) 1 applic UNSCH PRN TOP 04/17/16 10:00 04/18/16 00:01 (Mag-Ox) 800 mg Q12HR GT 04/17/16 21:00 05/20/16 09:44 (Reglan Liq) 10 mg ACHS G-TUBE 04/19/16 16:00 05/20/16 11:04 (Miralax) 17 gm DAILY G-TUBE 04/22/16 09:00 05/14/16 08:27 (K-Phos) 500 mg Q12HR PO 04/24/16 12:00 05/20/16 09:45 (Lactinex) 1 tab TID PO 04/24/16 18:00 05/20/16 13:10 (Benadryl Inj) 25 mg Q4H PRN IV 04/26/16 19:00 (Diflucan) 200 mg DAILY PO 05/01/16 15:45 05/20/16 09:44 (Flagyl) 500 mg Q8HR PO 05/01/16 22:00 05/20/16 13:10 (Magic Mouthwash Adult Liq) 5 ml QID SWISH-SWAL 05/01/16 18:00 05/14/16 22:36 Potassium Bicarb/ Potassium Chloride 40 meq 40 meq Q12HR NG 05/04/16 22:00 05/20/16 09:45 Ampicillin Sodium/ Sulbactam Sodium 3 gm/Sodium Chloride 100 ml @ 200 mls/hr Q6H IV 05/10/16 22:00 05/20/16 09:44 (NS 250 ml Inj) 250 ml @ 0 mls/hr ONCE IV 05/19/16 12:30 05/21/16 12:29 05/19/16 19:08 A/P Problem List: (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 Status: Acute (2) Stomatitis and mucositis ICD Code: K12.1 Status: Acute (3) Sepsis ICD Code: A41.9 Status: Acute (4) Leukocytosis ICD Code: D72.829 Status: Resolved (5) Sinus tachycardia ICD Code: R00.0 Status: Acute (6) Hyponatremia ICD Code: E87.1 Status: Acute (7) Hypercalcemia of malignancy ICD Code: E83.52 Status: Acute (8) 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: Acute (9) Electrolyte abnormality ICD Code: E87.8 Status: Acute (10) Severe protein-calorie malnutrition ICD Code: E43 Status: Acute (11) Constipation ICD Code: K59.00 Status: Resolved (12) DNR no code (do not resuscitate) ICD Code: Z66 Status: Acute (13) Palliative care patient ICD Code: Z51.5 Status: Acute (14) Hypomagnesemia ICD Code: E83.42 Status: Acute (15) Nausea ICD Code: R11.0 Status: Acute Plan: Likely secondary to radiation therapy. Continue Zofran,Granisetron ordered by medical oncology. Nausea likely contributing to SIADH. 05/20 Nausea resolved. Assessment and Plan (1) Squamous cell carcinoma of oropharynx Plan: Patient was admitted to the medical floor. CT of the face showed very large heterogeneous soft tissue mass along the right side of the face with gross destruction involving most of the right mandible. The chest and abdomen with possible lung/liver metastasis. Status post bone biopsy, pathology reported differentiated squamous cell carcinoma. Patient undergoing chemotherapy and radiation therapy for palliation as per oncology recommendations. 05/16 Patient's chemotherapy and radiation therapy on hold due to concerns for radiation dermatitis. Radiation therapy was held for 3 doses last week, plan to resume therapy this week. Chemotherapy and radiotherapy resumed . (2) Stomatitis and mucositis Plan: Concern for radiation dermatitis. Radiation and chemotherapy held last week. Radiation therapy was resumed this week and chemotherapy today on 05/19/16. (3) Sepsis Plan: Patient was having low-grade fevers which have not come back since . Possibly right facial wound and central line suspected to be the source. Central line was discontinued. 1 bottle blood cultures with Pseudomonas stutzeri. Patient was treated with IV Zosyn for total of 2 weeks N date 04/20/16. Repeat blood cultures on 26/07, 04/19,05/04, 05/10 all negative x5. Patient was being treated with Levaquin, Flagyl and fluconazole orally. Levaquin was discontinued. The patient is currently being treated with IV Unasyn, oral Flagyl and oral fluconazole. The prior exam handled by attending physician who does not want ID specialist on the case. (4) Leukocytosis Plan: Leukocytosis likely secondary to sepsis as above. Leukocytosis resolved. Continue to monitor CBC with differential. Patient now leukopenic with WBC of 3.2 (05/20/16) (5) Sinus tachycardia Plan: TSH within normal limits. Continue to monitor vital signs. Possibly compensatory to anemia. Patient status post infusion of packed red blood cells after hemoglobin dropped to 6.5. However patient still with sinus tachycardia. Continue to monitor vital signs. (6) Hyponatremia Plan: Suspected SIADH. Patient looks euvolemic. 05/18 Initially free water was decreased with temporary correction of hyponatremia. sodium now trending down to 132. Check serum and urine osmolality due to worsening hyponatremia. 05/19 sodium much improved and trending up, today 136. Urine and serum aspartate consistent with SIADH which is likely secondary to nausea. Continue to monitor BMP and sodium. Free water was discontinued. 05/20 sodium 138. Continue to monitor BMP. (7) Hypercalcemia of malignancy Plan: Status post treatment with Aredia. Now resolved. Continue to monitor. (8) Anemia due to chemotherapy Plan: Status post PRBC transfusion. Hemoglobin stable at 8.9. Continue to monitor H&H. Transfuse to keep hemoglobin more than 7 . 05/16 hemoglobin today down to 6.5. Likely secondary to chemotherapy. Improved after transfusion of 2 units of packed red blood cells. Hemoglobin now 8.6 and stable for several days after the fusion. Continue to monitor CBC. (9) Electrolyte abnormality Plan: Patient with hypokalemia, hypomagnesemia and hypophosphatemia likely from nutritional deficiency due to decreased by mouth intake. All have been replaced and corrected - continue to monitor electrolytes. (10) Severe protein-calorie malnutrition Plan: As evidenced by a more low albumin of 1.5, patient not eating much due to location of cancer. Registered dietitian consulting. Follow-up recommendations. Patient currently on Jevity 1.5 with 6 boluses daily which the patient has been tolerating. However the patient has not been gaining weight and dietitian recommends switching to feeding formulas to TwoCal HN. Changes be made. Schedule of bolus feeding changed on 05/19 to better fit the patient's radiotherapy schedule and patient would be off the floor and miss tube feedings. (11) Constipation Plan: Seems to be stable. On Senna, colace and Miralax daily. 05/20 Will switch stool softeners to be on as needed basis since patient is having soft stools now. (12) DNR no code (do not resuscitate) Plan: Patient has DO NOT RESUSCITATE status (13) Palliative care patient Plan: Patient being followed by palliative care. GI prophylaxis: Lactinex, will add PPI. Prophylaxis: SCDs, continue Lovenox continuously. Discharge Planning Most likely a long hospital stay due to severity of cancer. Continue to monitor in the oncology floor, and Kelsey chemotherapy and possible debulking surgery by general surgery. Nirav Preston MD May 20, 2016 14:21
[2016-05-20] MEDS: ENOXAPARIN SODIUM 30 MG/0.3 ML SYRINGE SQ SCH (15:42)
[2016-05-20 16:31] VITALS: BP 102/57; PULSE 85; RESP 18; TEMP 96.6; O2SAT 97
[2016-05-20 20:00] VITALS: BP 107/57; PULSE 95; RESP 17; TEMP 96.3; O2SAT 97
[2016-05-21] VITALS: BP 119/64; PULSE 88; RESP 16; TEMP 96.3; O2SAT 97
[2016-05-21 04:00] VITALS: BP 101/56; PULSE 91; RESP 16; TEMP 96.2; O2SAT 98
[2016-05-21] MEDS: AMPICILLIN-SULBACTAM INJ 3 GM in SODIUM CHLORIDE 0.9% INJ 100 ML IV SCH ×4 (04:28→21:25)
[2016-05-21] MEDS: FREE WATER G-TUBE SCH ×3 (05:43→16:59)
[2016-05-21] MEDS: METOCLOPRAMIDE HCL SYRUP 10 MG/10 ML UDC G-TUBE SCH ×4 (05:43→21:20)
[2016-05-21] MEDS: metroNIDAZOLE 500 MG TAB PO SCH ×3 (05:43→21:20)
[2016-05-21] MEDS: ACETAMINOPHEN 325MG/HYDROcodone 7.5MG/15ML UDC PO PRN ×2 (06:11→22:44)
[2016-05-21 07:50] VITALS: BP 92/54; PULSE 91; RESP 20; TEMP 97.5; O2SAT 97
[2016-05-21] MEDS: NYSTAT/DIPHENHY/LIDO MOUTHWASH (Adult) 120ML SWISH-SWAL SCH (09:00)
[2016-05-21] MEDS: POLYETHYLENE GLYCOL 17 GM PKG G-TUBE SCH (09:00)
[2016-05-21] MEDS: DOCUSATE SODIUM 50 MG/SENNA 8.6 MG TAB G-TUBE SCH (09:00)
[2016-05-21] MEDS: MAGNESIUM OXIDE 400 MG TAB GT SCH ×2 (09:46→21:20)
[2016-05-21] MEDS: SODIUM CHLORIDE 0.9% FLUSH 5 ML FLUSH IVF SCH ×2 (09:46→21:25)
[2016-05-21] MEDS: FLUCONAZOLE 200 MG TAB PO SCH (09:47)
[2016-05-21] MEDS: LACTOBACILLUS ACIDOPHILUS TAB PO SCH ×3 (09:47→16:59)
[2016-05-21] MEDS: POTASSIUM CHLORIDE 25 MEQ EFFERVESCENT TAB NG SCH ×2 (09:47→21:21)
[2016-05-21] MEDS: POTASSIUM PHOSPHATE MONOBASIC 500 MG TAB PO SCH ×2 (09:47→21:20)
--- NOTE | 2016-05-21 10:15 | HHI.PR ---
Subjective Remarks Brother at bedside Patient states feels tired there is some reported desquamation of skin in right side of the neck denies cp/sob denies fevers/chills stable vital signs - no further fevers. Objective Vitals Vital Signs Date Time Temp Pulse Resp B/P Pulse Ox O2 Delivery O2 Flow Rate FiO2 05/21/16 04:00 96.2 91 16 101/56 98 05/21/16 00:00 96.3 88 16 119/64 97 05/20/16 20:00 96.3 95 17 107/57 97 05/20/16 16:31 96.6 85 18 102/57 97 05/20/16 11:59 96.2 85 18 118/68 97 I/O 05/20/16 05/20/16 05/20/16 05/21/16 05/21/16 05/21/16 07:00 15:00 23:00 07:00 15:00 23:00 # Voids 1 3 1 Result Diagram: 05/20/16 0633 05/20/16 0633 Imaging Last Impressions Chest X-Ray 05/10/16 0000 Signed Impressions: Service Date/Time: Tuesday, May 10, 2016 00:10 - CONCLUSION: No acute cardiopulmonary process. Demetrio Pressley MD Liver Ultrasound 04/12/16 0000 Signed Impressions: Service Date/Time: Tuesday, April 12, 2016 22:29 - CONCLUSION: 1. Solid indeterminate mass in the left lobe of the liver as well as a tiny cyst. An MRI of the abdomen with without contrast may be helpful for further assessment if felt clinically warranted. The possibility of a metastatic lesion is not excluded. 2. Cholelithiasis. 3. Bilateral pleural effusions are suspected sonographically. Chau Ward MD Chest CT 04/11/16 0000 Signed Impressions: Service Date/Time: Monday, April 11, 2016 14:09 - CONCLUSION: 1. Multiple small scattered noncalcified pulmonary nodules which are nonspecific but are of concern for early metastatic disease. 2. The known large tumor mass in the right side of the face and neck is partially visualized with destructive change involving the right side of the mandible. This extends into the right supraclavicular region. Please see soft tissue neck CT for further details. 3. Low attenuation lesion in the left lobe of the liver again noted. Holland Villegas MD Abdomen/Pelvis CT 04/11/16 0000 Signed Impressions: Service Date/Time: Monday, April 11, 2016 14:09 - CONCLUSION: 1. 1.4 cm low-attenuation lesion left lobe of the liver of concern for a metastasis. There is a smaller more cystic appearing structure in the right lobe. 2. The remainder of the study is unremarkable except for a PEG tube in the stomach. Holland Villegas MD Upper Extremity Ultrasound 04/08/16 0000 Signed Impressions: Service Date/Time: Friday, April 08, 2016 13:04 - CONCLUSION: No thrombus. Deshawn Michele MD Neck CT 04/02/16 0000 Signed Impressions: Service Date/Time: Saturday, April 02, 2016 11:54 - CONCLUSION: Very large heterogeneous soft tissue mass along the right side of the face with gross destruction involving most of the right mandible. The mass contains amorphous calcifications and appears to involve the right sternocleidomastoid muscle. The mass appears to extend into the oral cavity with diffuse enlargement of the right tonsillar pillar. Neoplastic disease in the primary consideration. Niall Corrales MD Multiplanar Reconstruction 04/02/16 0000 Signed Impressions: Service Date/Time: Saturday, April 02, 2016 11:54 - CONCLUSION: 3-D reconstructive images demonstrating destruction involving most the right side of the mandible. Niall Corrales MD Head CT 04/02/16 0000 Signed Impressions: Service Date/Time: Saturday, April 02, 2016 11:54 - CONCLUSION: 1. Unremarkable CT scan of the brain 2. Large abnormal soft tissue mass with calcifications along the right side of the face. Niall Corrales MD Objective Remarks Gen NAD HEENT: large ulcerating exophytic mass on the right side of the face. mouth is partial shut. Lips cracked. CV RRR. no r/m/g Resp CTA B/L Abd soft NDNT EXT: no edema Procedures central line placement PEG placement bone biopsy teeth extraction Medications and IVs Current Medications Medications (Trade) Dose Ordered Sig/Sara Route Start Time Stop Time Status Last Admin (Zofran Inj) 4 mg Q6H PRN IV PUSH 04/02/16 01:45 05/17/16 09:01 (NS Flush) 2 ml UNSCH PRN IVF 04/02/16 08:15 04/17/16 05:08 (NS Flush) 2 ml BID IVF 04/02/16 09:00 05/21/16 09:46 (Benadryl) 25 mg Q6H PRN PO 04/02/16 09:00 05/17/16 11:32 (Lovenox Inj) 30 mg Q24H SQ 04/04/16 15:30 05/20/16 15:42 (Free Water) VOLUME: 200 ML Q6HR G-TUBE 04/04/16 08:45 05/21/16 05:43 (Tylenol) 650 mg Q4H PRN PO 04/07/16 01:45 05/17/16 04:13 (Morphine Inj) 2 mg Q2HR PRN IV PUSH 04/08/16 09:00 05/17/16 15:00 (Hycet 325-7.5 Mg Liq) 15 ml Q3HR PRN PO 04/08/16 14:45 05/21/16 06:11 (Colace Liq) 100 mg BID PRN GT 04/15/16 12:15 05/11/16 05:08 (Lactulose Liq) 30 ml TID PRN G-TUBE 04/15/16 12:15 (Dulcolax Supp) 10 mg DAILY PRN [place] 04/15/16 12:15 (Milk Of Magnesia Liq) 30 ml Q6H PRN GT 04/15/16 12:15 (Chapstick) 1 applic UNSCH PRN TOP 04/17/16 10:00 04/18/16 00:01 (Mag-Ox) 800 mg Q12HR GT 04/17/16 21:00 05/21/16 09:46 (Reglan Liq) 10 mg ACHS G-TUBE 04/19/16 16:00 05/21/16 05:43 (K-Phos) 500 mg Q12HR PO 04/24/16 12:00 05/21/16 09:47 (Lactinex) 1 tab TID PO 04/24/16 18:00 05/21/16 09:47 (Benadryl Inj) 25 mg Q4H PRN IV 04/26/16 19:00 (Diflucan) 200 mg DAILY PO 05/01/16 15:45 05/21/16 09:47 (Flagyl) 500 mg Q8HR PO 05/01/16 22:00 05/21/16 05:43 Potassium Bicarb/ Potassium Chloride 40 meq 40 meq Q12HR NG 05/04/16 22:00 05/21/16 09:47 Ampicillin Sodium/ Sulbactam Sodium 3 gm/Sodium Chloride 100 ml @ 200 mls/hr Q6H IV 05/10/16 22:00 05/21/16 09:46 (NS 250 ml Inj) 250 ml @ 0 mls/hr ONCE IV 05/19/16 12:30 05/21/16 12:29 05/19/16 19:08 (Magic Mouthwash Adult Liq) 5 ml QID PRN SWISH-SWAL 05/21/16 11:00 (Miralax) 17 gm DAILY PRN G-TUBE 05/21/16 11:00 Urinary Catheter: No Vascular Central Line Catheter: No A/P Problem List: (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 Status: Acute (2) Stomatitis and mucositis ICD Code: K12.1 Status: Acute (3) Sepsis ICD Code: A41.9 Status: Acute (4) Leukocytosis ICD Code: D72.829 Status: Resolved (5) Sinus tachycardia ICD Code: R00.0 Status: Acute (6) Hyponatremia ICD Code: E87.1 Status: Acute (7) Hypercalcemia of malignancy ICD Code: E83.52 Status: Acute (8) 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: Acute (9) Electrolyte abnormality ICD Code: E87.8 Status: Acute (10) Severe protein-calorie malnutrition ICD Code: E43 Status: Acute (11) Constipation ICD Code: K59.00 Status: Resolved (12) DNR no code (do not resuscitate) ICD Code: Z66 Status: Acute (13) Palliative care patient ICD Code: Z51.5 Status: Acute (14) Hypomagnesemia ICD Code: E83.42 Status: Acute (15) Nausea ICD Code: R11.0 Status: Acute Plan: Likely secondary to radiation therapy. Continue Zofran,Granisetron ordered by medical oncology. Nausea likely contributing to SIADH. 05/20 Nausea resolved. (16) Radiation-induced dermatitis ICD Code: L58.9 Status: Acute Plan: Patient with mucositis in oral mucosa. Left side of the neck with desquamating skin. Will Add Silver sulfadiazine to skin in neck. Assessment and Plan (1) Squamous cell carcinoma of oropharynx Plan: Patient was admitted to the medical floor. CT of the face showed very large heterogeneous soft tissue mass along the right side of the face with gross destruction involving most of the right mandible. The chest and abdomen with possible lung/liver metastasis. Status post bone biopsy, pathology reported differentiated squamous cell carcinoma. Patient undergoing chemotherapy and radiation therapy for palliation as per oncology recommendations. 05/16 Patient's chemotherapy and radiation therapy on hold due to concerns for radiation dermatitis. Radiation therapy was held for 3 doses last week, plan to resume therapy this week. Chemotherapy and radiotherapy resumed . (2) Stomatitis and mucositis Plan: Concern for radiation dermatitis. Radiation and chemotherapy held last week. Radiation therapy was resumed this week and chemotherapy today on 05/19/16. (3) Sepsis Plan: Patient was having low-grade fevers which have not come back since . Possibly right facial wound and central line suspected to be the source. Central line was discontinued. 1 bottle blood cultures with Pseudomonas stutzeri. Patient was treated with IV Zosyn for total of 2 weeks N date 04/20/16. Repeat blood cultures on 26/07, 04/19,05/04, 05/10 all negative x5. Patient was being treated with Levaquin, Flagyl and fluconazole orally. Levaquin was discontinued. The patient is currently being treated with IV Unasyn, oral Flagyl and oral fluconazole. The prior exam handled by attending physician who does not want ID specialist on the case. (4) Leukocytosis Plan: Leukocytosis likely secondary to sepsis as above. Leukocytosis resolved. Continue to monitor CBC with differential. Patient now leukopenic with WBC of 3.2 (05/20/16) (5) Sinus tachycardia Plan: TSH within normal limits. Continue to monitor vital signs. Possibly compensatory to anemia. Patient status post infusion of packed red blood cells after hemoglobin dropped to 6.5. However patient still with sinus tachycardia. Continue to monitor vital signs. (6) Hyponatremia Plan: Suspected SIADH. Patient looks euvolemic. 05/18 Initially free water was decreased with temporary correction of hyponatremia. sodium now trending down to 132. Check serum and urine osmolality due to worsening hyponatremia. 05/19 sodium much improved and trending up, today 136. Urine and serum aspartate consistent with SIADH which is likely secondary to nausea. Continue to monitor BMP and sodium. Free water was discontinued. 05/20 sodium 138. Continue to monitor BMP. (7) Hypercalcemia of malignancy Plan: Status post treatment with Aredia. Now resolved. Continue to monitor. (8) Anemia due to chemotherapy Plan: Status post PRBC transfusion. Hemoglobin stable at 8.9. Continue to monitor H&H. Transfuse to keep hemoglobin more than 7 . 05/16 hemoglobin today down to 6.5. Likely secondary to chemotherapy. Improved after transfusion of 2 units of packed red blood cells. Hemoglobin now 8.6 and stable for several days after the fusion. Continue to monitor CBC. (9) Electrolyte abnormality Plan: Patient with hypokalemia, hypomagnesemia and hypophosphatemia likely from nutritional deficiency due to decreased by mouth intake. All have been replaced and corrected - continue to monitor electrolytes. (10) Severe protein-calorie malnutrition Plan: As evidenced by a more low albumin of 1.5, patient not eating much due to location of cancer. Registered dietitian consulting. Follow-up recommendations. Patient currently on Jevity 1.5 with 6 boluses daily which the patient has been tolerating. However the patient has not been gaining weight and dietitian recommends switching to feeding formulas to TwoCal HN. Changes be made. Schedule of bolus feeding changed on 05/19 to better fit the patient's radiotherapy schedule and patient would be off the floor and miss tube feedings. (11) Constipation Plan: Seems to be stable. On Senna, colace and Miralax daily. 05/20 Will switch stool softeners to be on as needed basis since patient is having soft stools now. (12) DNR no code (do not resuscitate) Plan: Patient has DO NOT RESUSCITATE status (13) Palliative care patient Plan: Patient being followed by palliative care. GI prophylaxis: Lactinex, will add PPI. Prophylaxis: SCDs, continue Lovenox continuously. Discharge Planning Most likely a long hospital stay due to severity of cancer. Continue to monitor in the oncology floor, and Kelsey chemotherapy and possible debulking surgery by general surgery. Nirav Preston MD May 21, 2016 10:15
[2016-05-21 11:00] VITALS: BP 105/68; PULSE 90; RESP 20; TEMP 98; O2SAT 96
[2016-05-21] MEDS ORDERED: POLYETHYLENE GLYCOL 17 GM PKG G-TUBE PRN (11:00)
[2016-05-21] MEDS ORDERED: NYSTAT/DIPHENHY/LIDO MOUTHWASH (Adult) 120ML SWISH-SWAL PRN (11:00)
[2016-05-21 15:00] VITALS: BP 117/62; PULSE 110; RESP 20; TEMP 99; O2SAT 98
[2016-05-21] MEDS: ENOXAPARIN SODIUM 30 MG/0.3 ML SYRINGE SQ SCH (16:59)
[2016-05-21] MEDS: SILVER SULFADIAZINE 1% CR 50 GM JAR TOPICAL SCH ×2 (16:59→21:32)
[2016-05-21] MEDS: ACETAMINOPHEN 325 MG TAB PO PRN (17:02)
--- NOTE | 2016-05-21 19:55 | HHI.PR ---
Subjective Remarks s/p biopsy mass right face/extraction of mandibular teeth, SCCA pt seen and examined. AAOx3, NAD to face nurse chemo.radiation under progress Objective Vital Signs Date Time Temp Pulse Resp B/P Pulse Ox O2 Delivery O2 Flow Rate FiO2 05/21/16 15:00 99.0 110 20 117/62 98 05/21/16 11:00 98.0 90 20 105/68 96 05/21/16 07:50 97.5 91 20 92/54 97 05/21/16 04:00 96.2 91 16 101/56 98 05/21/16 00:00 96.3 88 16 119/64 97 05/20/16 20:00 96.3 95 17 107/57 97 I/O 05/20/16 05/20/16 05/20/16 05/21/16 05/21/16 05/21/16 07:00 15:00 23:00 07:00 15:00 23:00 Intake Total 0 ml Balance 0 ml Intake Oral 0 ml # Voids 1 3 1 2 # Bowel Movements 2 Result Diagram: 05/20/16 0633 05/20/16 0633 Procedures central line placement PEG placement bone biopsy teeth extraction Objective Remarks dressing in place , wound/mass hemostatic right face, site stable significant decrease in lesion/mass area/size right face intraorally, extraction sites hemostatic, healing, wound margins well approximated, Assessment and Plan Assessment and Plan mass right face/mandible region s/p extraction of teeth/biopsy s/p peg tube/central line invasive squamous cell carcinoma keratinizing continue dressing changes radiation/chemo tx in progress - significant decrease in size of SCCA will follow Joseph Macias DMD May 21, 2016 19:55
[2016-05-21 20:00] VITALS: BP 108/56; PULSE 107; RESP 16; TEMP 97.8; O2SAT 98
[2016-05-22] VITALS: BP 102/60; PULSE 108; RESP 18; TEMP 98.5; O2SAT 96
[2016-05-22 04:00] VITALS: BP 108/56; PULSE 107; RESP 18; TEMP 97.7; O2SAT 98
[2016-05-22] MEDS: AMPICILLIN-SULBACTAM INJ 3 GM in SODIUM CHLORIDE 0.9% INJ 100 ML IV SCH ×4 (04:31→22:01)
[2016-05-22] MEDS: metroNIDAZOLE 500 MG TAB PO SCH ×3 (06:26→22:01)
[2016-05-22] MEDS: METOCLOPRAMIDE HCL SYRUP 10 MG/10 ML UDC G-TUBE SCH ×4 (06:26→22:00)
[2016-05-22] MEDS: SODIUM CHLORIDE 0.9% FLUSH 5 ML FLUSH IVF PRN (06:26)
[2016-05-22] MEDS: FREE WATER G-TUBE SCH ×5 (06:38→23:02)
[2016-05-22 06:50] LABS: INTERNATIONAL NORMALIZED RATIO 1.2 RATIO; PROTHROMBIN TIME - PATIENT 13.7 SEC (9.8-11.6)
[2016-05-22 07:06] LABS: AUTOMATED NEUTROPHIL # 7.1 TH/MM3 (1.8-7.7); BASOPHIL % 0.1 % (0.0-2.0); EOSINOPHIL % 0.1 % (0.0-4.0); HEMATOCRIT 27.5 % (39.0-51.0); HEMO FLAGS DIFF FINAL; LYMPH % 1.6 % (9.0-44.0); LYMPHOCYTE # 0.1 TH/MM3 (1.0-4.8); MEAN CELL VOLUME 88.3 FL (80.0-100.0); MEAN CORPUSCULAR HEMOGLOBIN 28.9 PG (27.0-34.0); MEAN CORPUSCULAR HGB CONC 32.7 % (32.0-36.0); MONO % 6.2 % (0.0-8.0); PLATELET COUNT 488 TH/MM3 (150-450); RED BLOOD COUNT 3.12 MIL/MM3 (4.50-5.90); RED CELL DISTRIBUTION WIDTH 15.3 % (11.6-17.2); WHITE BLOOD COUNT 7.7 TH/MM3 (4.0-11.0)
[2016-05-22 07:16] LABS: ALT (GPT) 10 U/L (12-78); ANION GAP 12 MEQ/L (5-15); AST (GOT) 13 U/L (15-37); BLOOD UREA NITROGEN 13 MG/DL (7-18); CHLORIDE 97 MEQ/L (98-107); GLOMERULAR FILTRATION RATE 243 ML/MIN (>89); MAGNESIUM 1.4 MG/DL (1.5-2.5); POTASSIUM 3.6 MEQ/L (3.5-5.1); SODIUM (NA) 135 MEQ/L (136-145)
[2016-05-22 07:19] LABS: ALKALINE PHOSPHATASE 108 U/L (45-117); TOTAL BILIRUBIN ADULT 0.2 MG/DL (0.2-1.0)
[2016-05-22 08:00] VITALS: BP 87/59; PULSE 114; RESP 20; TEMP 97.9; O2SAT 98
--- NOTE | 2016-05-22 08:04 | HHI.PR ---
Subjective Remarks Oropharynx Carcinoma Stomatitis, Hypercalcemia, Anemia, electrolyte Imbalance, Severe Malnutrition Patient stable in his bedroom, was needed to stop his Chemotherapy yesterday and receiving Chemotherapy today, he has Diagnosis of Invasive Squamous Cell Carcinoma receiving weekly Carbo/Taxol and BID XRT. on hold Chemotherapy and Radiation therapy, on hold radiation therapy for 3 treatments continue Augmentin and Flagyl. Patient seen in the presence of his Brother going for Radiation Therapy, discussed with nurse Miss Aragon patito. no new issues, improving face edema Objective Vital Signs Date Time Temp Pulse Resp B/P Pulse Ox O2 Delivery O2 Flow Rate FiO2 05/22/16 04:00 97.7 107 18 108/56 98 05/22/16 00:00 98.5 108 18 102/60 96 05/21/16 20:00 97.8 107 16 108/56 98 05/21/16 15:00 99.0 110 20 117/62 98 05/21/16 11:00 98.0 90 20 105/68 96 I/O 05/21/16 05/21/16 05/21/16 05/22/16 05/22/16 05/22/16 07:00 15:00 23:00 07:00 15:00 23:00 Intake Total 0 ml 700 ml 750 ml Balance 0 ml 700 ml 750 ml Intake Oral 0 ml IV Total 220 ml 110 ml Tube Feeding 360 ml 240 ml Other 120 ml 400 ml # Voids 1 2 2 # Bowel Movements 2 Result Diagram: 05/22/16 0520 05/22/16 0520 Imaging Last Impressions Chest X-Ray 05/10/16 0000 Signed Impressions: Service Date/Time: Tuesday, May 10, 2016 00:10 - CONCLUSION: No acute cardiopulmonary process. Demetrio Pressley MD Liver Ultrasound 04/12/16 0000 Signed Impressions: Service Date/Time: Tuesday, April 12, 2016 22:29 - CONCLUSION: 1. Solid indeterminate mass in the left lobe of the liver as well as a tiny cyst. An MRI of the abdomen with without contrast may be helpful for further assessment if felt clinically warranted. The possibility of a metastatic lesion is not excluded. 2. Cholelithiasis. 3. Bilateral pleural effusions are suspected sonographically. Chau Ward MD Chest CT 04/11/16 0000 Signed Impressions: Service Date/Time: Monday, April 11, 2016 14:09 - CONCLUSION: 1. Multiple small scattered noncalcified pulmonary nodules which are nonspecific but are of concern for early metastatic disease. 2. The known large tumor mass in the right side of the face and neck is partially visualized with destructive change involving the right side of the mandible. This extends into the right supraclavicular region. Please see soft tissue neck CT for further details. 3. Low attenuation lesion in the left lobe of the liver again noted. Holland Villegas MD Abdomen/Pelvis CT 04/11/16 0000 Signed Impressions: Service Date/Time: Monday, April 11, 2016 14:09 - CONCLUSION: 1. 1.4 cm low-attenuation lesion left lobe of the liver of concern for a metastasis. There is a smaller more cystic appearing structure in the right lobe. 2. The remainder of the study is unremarkable except for a PEG tube in the stomach. Holland Villegas MD Upper Extremity Ultrasound 04/08/16 0000 Signed Impressions: Service Date/Time: Friday, April 08, 2016 13:04 - CONCLUSION: No thrombus. Deshawn Michele MD Neck CT 04/02/16 0000 Signed Impressions: Service Date/Time: Saturday, April 02, 2016 11:54 - CONCLUSION: Very large heterogeneous soft tissue mass along the right side of the face with gross destruction involving most of the right mandible. The mass contains amorphous calcifications and appears to involve the right sternocleidomastoid muscle. The mass appears to extend into the oral cavity with diffuse enlargement of the right tonsillar pillar. Neoplastic disease in the primary consideration. Niall Corrales MD Multiplanar Reconstruction 04/02/16 0000 Signed Impressions: Service Date/Time: Saturday, April 02, 2016 11:54 - CONCLUSION: 3-D reconstructive images demonstrating destruction involving most the right side of the mandible. Niall Corrales MD Head CT 04/02/16 0000 Signed Impressions: Service Date/Time: Saturday, April 02, 2016 11:54 - CONCLUSION: 1. Unremarkable CT scan of the brain 2. Large abnormal soft tissue mass with calcifications along the right side of the face. Niall Corrales MD Procedures central line placement PEG placement bone biopsy teeth extraction Radiation therapy Chemotherapy Other Results Laboratory Tests Test 05/16/16 05/18/16 05/18/16 3/18/17 13:59 12:08 18:35 06:33 Blood Type O POSITIVE Antibody Screen NEGATIVE Crossmatch Leukocyte-Reduced Red Blood Cells Blood Bank Comment Serum Osmolality 273 MOSM/KG Urine Osmolality 674 MOSM/KG Platelet Estimate HIGH Platelet Morphology Comment NORMAL Acanthocytes OCC Test 05/22/16 05:20 White Blood Count 7.7 TH/MM3 Red Blood Count 3.12 MIL/MM3 Hemoglobin 9.0 GM/DL Hematocrit 27.5 % Mean Corpuscular Volume 88.3 FL Mean Corpuscular Hemoglobin 28.9 PG Mean Corpuscular Hemoglobin 32.7 % Concent Red Cell Distribution Width 15.3 % Platelet Count 488 TH/MM3 Mean Platelet Volume 6.4 FL Neutrophils (%) (Auto) 92.0 % Lymphocytes (%) (Auto) 1.6 % Monocytes (%) (Auto) 6.2 % Eosinophils (%) (Auto) 0.1 % Basophils (%) (Auto) 0.1 % Neutrophils # (Auto) 7.1 TH/MM3 Lymphocytes # (Auto) 0.1 TH/MM3 Monocytes # (Auto) 0.5 TH/MM3 Eosinophils # (Auto) 0.0 TH/MM3 Basophils # (Auto) 0.0 TH/MM3 CBC Comment DIFF FINAL Differential Comment Prothrombin Time 13.7 SEC Prothromb Time International 1.2 RATIO Ratio Sodium Level 135 MEQ/L Potassium Level 3.6 MEQ/L Chloride Level 97 MEQ/L Carbon Dioxide Level 26.0 MEQ/L Anion Gap 12 MEQ/L Blood Urea Nitrogen 13 MG/DL Creatinine 0.40 MG/DL Estimat Glomerular Filtration 243 ML/MIN Rate Random Glucose 89 MG/DL Calcium Level 8.7 MG/DL Phosphorus Level 2.5 MG/DL Magnesium Level 1.4 MG/DL Total Bilirubin 0.2 MG/DL Aspartate Amino Transf 13 U/L (AST/SGOT) Alanine Aminotransferase 10 U/L (ALT/SGPT) Alkaline Phosphatase 108 U/L Total Protein 6.0 GM/DL Albumin 1.5 GM/DL Triglycerides Level 124 MG/DL Objective Remarks General: No acute Distress. HEENT: large ulcerating exophytic mass on the right side of the face. mouth is partial shut. Lips cracked. Improving right facial edema CV RRR. no r/m/g Resp CTA B/L Abd soft NDNT EXT: no edema Medications and IVs Current Medications Medications (Trade) Dose Ordered Sig/Sara Route Start Time Stop Time Status Last Admin (Zofran Inj) 4 mg Q6H PRN IV PUSH 04/02/16 01:45 05/17/16 09:01 (NS Flush) 2 ml UNSCH PRN IVF 04/02/16 08:15 05/22/16 06:26 (NS Flush) 2 ml BID IVF 04/02/16 09:00 05/21/16 21:25 (Benadryl) 25 mg Q6H PRN PO 04/02/16 09:00 05/17/16 11:32 (Lovenox Inj) 30 mg Q24H SQ 04/04/16 15:30 05/21/16 16:59 (Free Water) VOLUME: 200 ML Q6HR G-TUBE 04/04/16 08:45 05/22/16 06:38 (Tylenol) 650 mg Q4H PRN PO 04/07/16 01:45 05/21/16 17:02 (Morphine Inj) 2 mg Q2HR PRN IV PUSH 04/08/16 09:00 05/17/16 15:00 (Hycet 325-7.5 Mg Liq) 15 ml Q3HR PRN PO 04/08/16 14:45 05/21/16 22:44 (Colace Liq) 100 mg BID PRN GT 04/15/16 12:15 05/11/16 05:08 (Lactulose Liq) 30 ml TID PRN G-TUBE 04/15/16 12:15 (Dulcolax Supp) 10 mg DAILY PRN MD 04/15/16 12:15 (Milk Of Magnesia Liq) 30 ml Q6H PRN GT 04/15/16 12:15 (Chapstick) 1 applic UNSCH PRN TOP 04/17/16 10:00 04/18/16 00:01 (Mag-Ox) 800 mg Q12HR GT 04/17/16 21:00 05/21/16 21:20 (Reglan Liq) 10 mg ACHS G-TUBE 04/19/16 16:00 05/22/16 06:26 (K-Phos) 500 mg Q12HR PO 04/24/16 12:00 05/21/16 21:20 (Lactinex) 1 tab TID PO 04/24/16 18:00 05/21/16 16:59 (Benadryl Inj) 25 mg Q4H PRN IV 04/26/16 19:00 (Diflucan) 200 mg DAILY PO 05/01/16 15:45 05/21/16 09:47 (Flagyl) 500 mg Q8HR PO 05/01/16 22:00 05/22/16 06:26 Potassium Bicarb/ Potassium Chloride 40 meq 40 meq Q12HR NG 05/04/16 22:00 05/21/16 21:21 (Unasyn Inj/NS Inj) 100 ml @ 200 mls/hr Q6H IV 05/10/16 22:00 05/22/16 04:31 (Magic Mouthwash Adult Liq) 5 ml QID PRN SWISH-SWAL 05/21/16 11:00 (Miralax) 17 gm DAILY PRN G-TUBE 05/21/16 11:00 (Silvadene 1% Cream (50 Gm)) 1 applic Q12HR TOPICAL 05/21/16 12:00 05/21/16 21:32 A/P Problem List: (1) Radiation-induced dermatitis ICD Code: L58.9 (2) 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 (3) 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 Squamous Cell Carcinoma of Oropharynx, CT of the face showed very large heterogeneous soft tissue mass along the right side of the face with gross destruction involving most of the right mandible. Probable Metastatic Disease to the Abdomen and Lung/Liver. 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 continue Radiation therapy and Chemotherapy as per alteration specialist. and Radiation specialist following. at this time going for Radiation therapy, is improving right facial edema 2. Stomatitis and Mucositis, some otitis on Chemotherapy, continue Magic Mouth Wash 3. Sepsis one bottle of blood cultures, growing Pseudomonas Stutzeri. right facial wound and central line suspected source. Central line discontinued. was on Levofloxacin switched to Augmentin plus Flagyl and continue Fluconazole. Antibiotics handled by Attending physician, do not want ID specialist on the case. 4. 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 today 135 5. Hypercalcemia of malignancy, status post treatment with Aredia. resolved 6. Anemia secondary to Chemotherapy, Status post Blood transfusion. Hemoglobin 9 7. Severe Protein Calorie Malnutrition, status post PEG placement tube feedings 8. Constipation continue Colace, MiraLAX and Lactulose 9. electrolyte derangement Attending physician placed replacement and monitoring DVT prophylaxis with Lovenox. Code status DNR Discussed with patient and his Brother also nurse Miss Aragon. GI prophylaxis: Lactinex, will add PPI. Discharge Planning As per Attending physician. Richie Devries MD May 22, 2016 08:04
[2016-05-22] MEDS: SODIUM CHLORIDE 0.9% FLUSH 5 ML FLUSH IVF SCH ×2 (09:00→22:02)
[2016-05-22] MEDS: LACTOBACILLUS ACIDOPHILUS TAB PO SCH ×3 (09:00→18:00)
[2016-05-22] MEDS: SILVER SULFADIAZINE 1% CR 50 GM JAR TOPICAL SCH ×2 (09:00→22:22)
[2016-05-22] MEDS: FLUCONAZOLE 200 MG TAB PO SCH (11:05)
[2016-05-22] MEDS: POTASSIUM CHLORIDE 25 MEQ EFFERVESCENT TAB NG SCH ×2 (11:05→22:01)
[2016-05-22] MEDS: MAGNESIUM OXIDE 400 MG TAB GT SCH ×2 (11:06→22:01)
[2016-05-22] MEDS: POTASSIUM PHOSPHATE MONOBASIC 500 MG TAB PO SCH ×2 (11:06→22:01)
[2016-05-22] MEDS: ACETAMINOPHEN 325MG/HYDROcodone 7.5MG/15ML UDC PO PRN ×2 (11:07→22:00)
[2016-05-22 12:00] VITALS: BP 103/62; PULSE 112; RESP 18; TEMP 97.8; O2SAT 98
--- NOTE | 2016-05-22 15:43 | HHI.PR ---
Subjective Subjective Notes Getting ready to go to radiation Brother at bedside Objective Vitals/I&O Vital Signs Date Time Temp Pulse Resp B/P Pulse Ox O2 Delivery O2 Flow Rate FiO2 05/22/16 04:00 97.7 107 18 108/56 98 Labs Laboratory Tests Test 05/22/16 05:20 White Blood Count 7.7 Red Blood Count 3.12 Hemoglobin 9.0 Hematocrit 27.5 Mean Corpuscular Volume 88.3 Mean Corpuscular Hemoglobin 28.9 Mean Corpuscular Hemoglobin 32.7 Concent Red Cell Distribution Width 15.3 Platelet Count 488 Mean Platelet Volume 6.4 Neutrophils (%) (Auto) 92.0 Lymphocytes (%) (Auto) 1.6 Monocytes (%) (Auto) 6.2 Eosinophils (%) (Auto) 0.1 Basophils (%) (Auto) 0.1 Neutrophils # (Auto) 7.1 Lymphocytes # (Auto) 0.1 Monocytes # (Auto) 0.5 Eosinophils # (Auto) 0.0 Basophils # (Auto) 0.0 CBC Comment DIFF FINAL Differential Comment Prothrombin Time 13.7 Prothromb Time International 1.2 Ratio Sodium Level 135 Potassium Level 3.6 Chloride Level 97 Carbon Dioxide Level 26.0 Anion Gap 12 Blood Urea Nitrogen 13 Creatinine 0.40 Estimat Glomerular Filtration 243 Rate Random Glucose 89 Calcium Level 8.7 Phosphorus Level 2.5 Magnesium Level 1.4 Total Bilirubin 0.2 Aspartate Amino Transf 13 (AST/SGOT) Alanine Aminotransferase 10 (ALT/SGPT) Alkaline Phosphatase 108 Total Protein 6.0 Albumin 1.5 Triglycerides Level 124 Cardiovascular: Regular Lungs: Clear Abdomen: Non-distended, Non-tender, Other (PEG in place ) Narrative Exam Face: large RIGHT sided facial malignancy A/P Assessment and Plan 35 year old male with large oropharyngeal cancer -Continue Chemo/Radiation per Hematology -Will touch base with OMFS about timing of surgery -s/p PEG placement -s/p biopsy of mass -Tolerating bolus feedings I certify and attest that I personally examined this patient with Ms. Stapleton who documented our visit in the EMR and entered orders under my direct supervision. I reviewed the care plan with the nursing staff and family if present. Brittnee Arroyo MD, FACS May 22, 2016 15:43 Juan Oseguera MD May 24, 2016 14:37
[2016-05-22 16:00] VITALS: BP 102/62; PULSE 100; RESP 18; TEMP 95.9; O2SAT 98
[2016-05-22] MEDS: ENOXAPARIN SODIUM 30 MG/0.3 ML SYRINGE SQ SCH (17:00)
[2016-05-22 20:00] VITALS: BP 123/69; PULSE 126; RESP 20; TEMP 99.1; O2SAT 98
[2016-05-23] VITALS: BP 111/65; PULSE 124; RESP 20; TEMP 98.1; O2SAT 96
[2016-05-23 04:00] VITALS: BP 109/66; PULSE 105; RESP 18; TEMP 97.6; O2SAT 99
[2016-05-23] MEDS: AMPICILLIN-SULBACTAM INJ 3 GM in SODIUM CHLORIDE 0.9% INJ 100 ML IV SCH ×4 (04:26→21:30)
[2016-05-23] MEDS: metroNIDAZOLE 500 MG TAB PO SCH ×3 (05:53→21:30)
[2016-05-23] MEDS: FREE WATER G-TUBE SCH ×4 (05:54→23:54)
[2016-05-23] MEDS: METOCLOPRAMIDE HCL SYRUP 10 MG/10 ML UDC G-TUBE SCH ×4 (06:00→21:30)
--- NOTE | 2016-05-23 07:40 | HHI.PR ---
Subjective Remarks Oropharynx Carcinoma Stomatitis, Hypercalcemia, Anemia, electrolyte Imbalance, Severe Malnutrition Patient stable in his bedroom, was needed to stop his Chemotherapy yesterday and receiving Chemotherapy today, he has Diagnosis of Invasive Squamous Cell Carcinoma receiving weekly Carbo/Taxol and BID XRT. on hold Chemotherapy and Radiation therapy, on hold radiation therapy for 3 treatments continue Augmentin and Flagyl. 05/22 Patient seen in the presence of his Brother going for Radiation Therapy, discussed with nurse Miss Aragon patito. no new issues, improving face edema 05/23 Seen in his bedroom stable no new issues, no nausea, vomit or diarrhea. his Brother present Objective Vital Signs Date Time Temp Pulse Resp B/P Pulse Ox O2 Delivery O2 Flow Rate FiO2 05/23/16 04:00 97.6 105 18 109/66 99 05/23/16 00:00 98.1 124 20 111/65 96 05/22/16 20:00 99.1 126 20 123/69 98 05/22/16 16:00 95.9 100 18 102/62 98 05/22/16 12:00 97.8 112 18 103/62 98 05/22/16 08:00 97.9 114 20 87/59 98 Result Diagram: 05/22/16 0520 05/22/16 0520 Imaging Last Impressions Chest X-Ray 05/10/16 0000 Signed Impressions: Service Date/Time: Tuesday, May 10, 2016 00:10 - CONCLUSION: No acute cardiopulmonary process. Demetrio Pressley MD Liver Ultrasound 04/12/16 0000 Signed Impressions: Service Date/Time: Tuesday, April 12, 2016 22:29 - CONCLUSION: 1. Solid indeterminate mass in the left lobe of the liver as well as a tiny cyst. An MRI of the abdomen with without contrast may be helpful for further assessment if felt clinically warranted. The possibility of a metastatic lesion is not excluded. 2. Cholelithiasis. 3. Bilateral pleural effusions are suspected sonographically. Chau Ward MD Chest CT 04/11/16 0000 Signed Impressions: Service Date/Time: Monday, April 11, 2016 14:09 - CONCLUSION: 1. Multiple small scattered noncalcified pulmonary nodules which are nonspecific but are of concern for early metastatic disease. 2. The known large tumor mass in the right side of the face and neck is partially visualized with destructive change involving the right side of the mandible. This extends into the right supraclavicular region. Please see soft tissue neck CT for further details. 3. Low attenuation lesion in the left lobe of the liver again noted. Holland Villegas MD Abdomen/Pelvis CT 04/11/16 0000 Signed Impressions: Service Date/Time: Monday, April 11, 2016 14:09 - CONCLUSION: 1. 1.4 cm low-attenuation lesion left lobe of the liver of concern for a metastasis. There is a smaller more cystic appearing structure in the right lobe. 2. The remainder of the study is unremarkable except for a PEG tube in the stomach. Holland Villegas MD Upper Extremity Ultrasound 04/08/16 0000 Signed Impressions: Service Date/Time: Friday, April 08, 2016 13:04 - CONCLUSION: No thrombus. Deshawn Michele MD Neck CT 04/02/16 0000 Signed Impressions: Service Date/Time: Saturday, April 02, 2016 11:54 - CONCLUSION: Very large heterogeneous soft tissue mass along the right side of the face with gross destruction involving most of the right mandible. The mass contains amorphous calcifications and appears to involve the right sternocleidomastoid muscle. The mass appears to extend into the oral cavity with diffuse enlargement of the right tonsillar pillar. Neoplastic disease in the primary consideration. Niall Corrales MD Multiplanar Reconstruction 04/02/16 0000 Signed Impressions: Service Date/Time: Saturday, April 02, 2016 11:54 - CONCLUSION: 3-D reconstructive images demonstrating destruction involving most the right side of the mandible. Niall Corrales MD Head CT 04/02/16 0000 Signed Impressions: Service Date/Time: Saturday, April 02, 2016 11:54 - CONCLUSION: 1. Unremarkable CT scan of the brain 2. Large abnormal soft tissue mass with calcifications along the right side of the face. Niall Corrales MD Procedures central line placement PEG placement bone biopsy teeth extraction Radiation therapy Chemotherapy Other Results Laboratory Tests Test 05/20/16 05/22/16 06:33 05:20 Platelet Estimate HIGH Platelet Morphology Comment NORMAL Acanthocytes OCC White Blood Count 7.7 TH/MM3 Red Blood Count 3.12 MIL/MM3 Hemoglobin 9.0 GM/DL Hematocrit 27.5 % Mean Corpuscular Volume 88.3 FL Mean Corpuscular Hemoglobin 28.9 PG Mean Corpuscular Hemoglobin 32.7 % Concent Red Cell Distribution Width 15.3 % Platelet Count 488 TH/MM3 Mean Platelet Volume 6.4 FL Neutrophils (%) (Auto) 92.0 % Lymphocytes (%) (Auto) 1.6 % Monocytes (%) (Auto) 6.2 % Eosinophils (%) (Auto) 0.1 % Basophils (%) (Auto) 0.1 % Neutrophils # (Auto) 7.1 TH/MM3 Lymphocytes # (Auto) 0.1 TH/MM3 Monocytes # (Auto) 0.5 TH/MM3 Eosinophils # (Auto) 0.0 TH/MM3 Basophils # (Auto) 0.0 TH/MM3 CBC Comment DIFF FINAL Differential Comment Prothrombin Time 13.7 SEC Prothromb Time International 1.2 RATIO Ratio Sodium Level 135 MEQ/L Potassium Level 3.6 MEQ/L Chloride Level 97 MEQ/L Carbon Dioxide Level 26.0 MEQ/L Anion Gap 12 MEQ/L Blood Urea Nitrogen 13 MG/DL Creatinine 0.40 MG/DL Estimat Glomerular Filtration 243 ML/MIN Rate Random Glucose 89 MG/DL Calcium Level 8.7 MG/DL Phosphorus Level 2.5 MG/DL Magnesium Level 1.4 MG/DL Total Bilirubin 0.2 MG/DL Aspartate Amino Transf 13 U/L (AST/SGOT) Alanine Aminotransferase 10 U/L (ALT/SGPT) Alkaline Phosphatase 108 U/L Total Protein 6.0 GM/DL Albumin 1.5 GM/DL Triglycerides Level 124 MG/DL Objective Remarks General: No acute Distress. HEENT: large ulcerating exophytic mass on the right side of the face. mouth is partial shut. Lips cracked. Improving right facial edema CV RRR. no r/m/g Resp CTA B/L Abd soft NDNT EXT: no edema Medications and IVs Current Medications Medications (Trade) Dose Ordered Sig/Sara Route Start Time Stop Time Status Last Admin (Zofran Inj) 4 mg Q6H PRN IV PUSH 04/02/16 01:45 05/17/16 09:01 (NS Flush) 2 ml UNSCH PRN IVF 04/02/16 08:15 05/22/16 06:26 (NS Flush) 2 ml BID IVF 04/02/16 09:00 05/22/16 22:02 (Benadryl) 25 mg Q6H PRN PO 04/02/16 09:00 05/17/16 11:32 (Lovenox Inj) 30 mg Q24H SQ 04/04/16 15:30 05/22/16 17:00 (Free Water) VOLUME: 200 ML Q6HR G-TUBE 04/04/16 08:45 05/23/16 05:54 (Tylenol) 650 mg Q4H PRN PO 04/07/16 01:45 05/21/16 17:02 (Morphine Inj) 2 mg Q2HR PRN IV PUSH 04/08/16 09:00 05/17/16 15:00 (Hycet 325-7.5 Mg Liq) 15 ml Q3HR PRN PO 04/08/16 14:45 05/22/16 22:00 (Colace Liq) 100 mg BID PRN GT 04/15/16 12:15 05/11/16 05:08 (Lactulose Liq) 30 ml TID PRN G-TUBE 04/15/16 12:15 (Dulcolax Supp) 10 mg DAILY PRN SC 04/15/16 12:15 (Milk Of Magnesia Liq) 30 ml Q6H PRN GT 04/15/16 12:15 (Chapstick) 1 applic UNSCH PRN TOP 04/17/16 10:00 04/18/16 00:01 (Mag-Ox) 800 mg Q12HR GT 04/17/16 21:00 05/22/16 22:01 (Reglan Liq) 10 mg ACHS G-TUBE 04/19/16 16:00 05/23/16 06:00 (K-Phos) 500 mg Q12HR PO 04/24/16 12:00 05/22/16 22:01 (Lactinex) 1 tab TID PO 04/24/16 18:00 05/22/16 18:00 (Benadryl Inj) 25 mg Q4H PRN IV 04/26/16 19:00 (Diflucan) 200 mg DAILY PO 05/01/16 15:45 05/22/16 11:05 (Flagyl) 500 mg Q8HR PO 05/01/16 22:00 05/23/16 05:53 Potassium Bicarb/ Potassium Chloride 40 meq 40 meq Q12HR NG 05/04/16 22:00 05/22/16 22:01 (Unasyn Inj/NS Inj) 100 ml @ 200 mls/hr Q6H IV 05/10/16 22:00 05/23/16 04:26 (Magic Mouthwash Adult Liq) 5 ml QID PRN SWISH-SWAL 05/21/16 11:00 (Miralax) 17 gm DAILY PRN G-TUBE 05/21/16 11:00 (Silvadene 1% Cream (50 Gm)) 1 applic Q12HR TOPICAL 05/21/16 12:00 05/22/16 22:22 A/P Problem List: (1) Radiation-induced dermatitis ICD Code: L58.9 (2) 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 (3) 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 Squamous Cell Carcinoma of Oropharynx, CT of the face showed very large heterogeneous soft tissue mass along the right side of the face with gross destruction involving most of the right mandible. Probable Metastatic Disease to the Abdomen and Lung/Liver. 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 continue Radiation therapy and Chemotherapy as per computer operations specialist. and Radiation specialist following. Improving Facial edema. 2. Stomatitis and Mucositis, some otitis on Chemotherapy, continue Magic Mouth Wash 3. Sepsis one bottle of blood cultures, growing Pseudomonas Stutzeri. right facial wound and central line suspected source. Central line discontinued. was on Levofloxacin switched to Augmentin plus Flagyl and continue Fluconazole. Antibiotics handled by Attending physician, do not want ID specialist on the case. 4. 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 today 135 5. Hypercalcemia of malignancy, status post treatment with Aredia. resolved 6. Anemia secondary to Chemotherapy, Status post Blood transfusion. Hemoglobin 9 7. Severe Protein Calorie Malnutrition, status post PEG placement tube feedings 8. Constipation continue Colace, MiraLAX and Lactulose 9. electrolyte derangement Attending physician placed replacement and monitoring DVT prophylaxis with Lovenox. Code status DNR Discussed with patient and his Brother also nurse Miss Aragon. GI prophylaxis: Lactinex, will add PPI. No changes to anterior assessment. Discharge Planning As per Attending physician. Richie Devries MD May 23, 2016 07:40
[2016-05-23 08:00] VITALS: BP 83/49; PULSE 109; RESP 22; TEMP 98.7; O2SAT 97
[2016-05-23] MEDS: SILVER SULFADIAZINE 1% CR 50 GM JAR TOPICAL SCH ×2 (09:00→21:30)
[2016-05-23] MEDS: POTASSIUM CHLORIDE 25 MEQ EFFERVESCENT TAB NG SCH ×2 (10:29→21:30)
[2016-05-23] MEDS: ACETAMINOPHEN 325MG/HYDROcodone 7.5MG/15ML UDC PO PRN (10:29)
[2016-05-23] MEDS: SODIUM CHLORIDE 0.9% FLUSH 5 ML FLUSH IVF SCH ×2 (10:29→21:30)
[2016-05-23] MEDS: LACTOBACILLUS ACIDOPHILUS TAB PO SCH ×3 (10:30→18:00)
[2016-05-23] MEDS: POTASSIUM PHOSPHATE MONOBASIC 500 MG TAB PO SCH ×2 (10:30→21:30)
[2016-05-23] MEDS: FLUCONAZOLE 200 MG TAB PO SCH (10:30)
[2016-05-23] MEDS: MAGNESIUM OXIDE 400 MG TAB GT SCH ×2 (10:30→21:30)
[2016-05-23 12:00] VITALS: BP 84/52; PULSE 111; RESP 18; TEMP 98; O2SAT 97
[2016-05-23] MEDS: ENOXAPARIN SODIUM 30 MG/0.3 ML SYRINGE SQ SCH (15:30)
[2016-05-23 16:00] VITALS: BP 99/61; PULSE 109; RESP 18; TEMP 98; O2SAT 96
[2016-05-23 20:00] VITALS: BP 93/48; PULSE 109; RESP 16; TEMP 98.1; O2SAT 98
[2016-05-24 00:15] VITALS: BP 101/62; PULSE 111; RESP 16; TEMP 98.8; O2SAT 98
[2016-05-24] MEDS: AMPICILLIN-SULBACTAM INJ 3 GM in SODIUM CHLORIDE 0.9% INJ 100 ML IV SCH ×4 (03:43→21:32)
[2016-05-24 04:00] VITALS: BP 112/68; PULSE 119; RESP 16; TEMP 98.7; O2SAT 98
[2016-05-24] MEDS: METOCLOPRAMIDE HCL SYRUP 10 MG/10 ML UDC G-TUBE SCH ×4 (05:03→21:32)
[2016-05-24] MEDS: metroNIDAZOLE 500 MG TAB PO SCH ×3 (05:04→21:33)
[2016-05-24] MEDS: FREE WATER G-TUBE SCH ×3 (05:09→17:43)
[2016-05-24] MEDS: FLUCONAZOLE 200 MG TAB PO SCH (08:03)
[2016-05-24] MEDS: POTASSIUM CHLORIDE 25 MEQ EFFERVESCENT TAB NG SCH ×2 (08:03→21:32)
[2016-05-24] MEDS: LACTOBACILLUS ACIDOPHILUS TAB PO SCH ×3 (08:03→18:00)
[2016-05-24] MEDS: MAGNESIUM OXIDE 400 MG TAB GT SCH ×2 (08:03→21:33)
[2016-05-24] MEDS: POTASSIUM PHOSPHATE MONOBASIC 500 MG TAB PO SCH ×2 (08:03→21:32)
--- NOTE | 2016-05-24 08:04 | HHI.PR ---
Subjective Remarks s/p biopsy mass right face/extraction of mandibular teeth, SCCA pt seen and examined. AAOx3, NAD to face nurse chemo.radiation under progress Objective Vital Signs Date Time Temp Pulse Resp B/P Pulse Ox O2 Delivery O2 Flow Rate FiO2 05/24/16 04:00 98.7 119 16 112/68 98 05/24/16 00:15 98.8 111 16 101/62 98 05/23/16 20:00 98.1 109 16 93/48 98 05/23/16 16:00 98.0 109 18 99/61 96 05/23/16 12:00 98.0 111 18 84/52 97 I/O 05/23/16 05/23/16 05/23/16 05/24/16 05/24/16 05/24/16 07:00 15:00 23:00 07:00 15:00 23:00 Intake Total 0 ml 0 ml Balance 0 ml 0 ml Intake Oral 0 ml 0 ml # Voids 1 3 1 1 # Bowel Movements 0 0 Result Diagram: 05/22/1651905/22/16 0520 Procedures central line placement PEG placement bone biopsy teeth extraction Radiation therapy Chemotherapy Objective Remarks dressing in place , wound/mass hemostatic right face, site stable significant decrease in lesion/mass area/size right face intraorally, extraction sites hemostatic, healing, wound margins well approximated, Assessment and Plan Assessment and Plan mass right face/mandible region s/p extraction of teeth/biopsy s/p peg tube/central line invasive squamous cell carcinoma keratinizing plan for mor today debridement right face/ exam under anesthesia customer accounts advisor service [facility]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 all questions/concerns reviewed/answered Joseph Macias DMD May 24, 2016 08:04
--- NOTE | 2016-05-24 08:43 | HHI.PR ---
Subjective Remarks Oropharynx Carcinoma Stomatitis, Hypercalcemia, Anemia, electrolyte Imbalance, Severe Malnutrition Patient stable in his bedroom, was needed to stop his Chemotherapy yesterday and receiving Chemotherapy today, he has Diagnosis of Invasive Squamous Cell Carcinoma receiving weekly Carbo/Taxol and BID XRT. on hold Chemotherapy and Radiation therapy, on hold radiation therapy for 3 treatments continue Augmentin and Flagyl. 05/22 Patient seen in the presence of his Brother going for Radiation Therapy, discussed with nurse Miss Margo caputo. no new issues, improving face edema 05/23 Seen in his bedroom stable no new issues, no nausea, vomit or diarrhea. his Brother present 05/24 as per art therapy specialist Notes he will have I and D of Right face under anesthesia. but when I came to see him in the afternoon seen in the presence of nurse Miss Veloz the procedure was recommended for tomorrow at 2 PM, No Nausea, vomit or diarrhea Objective Vital Signs Date Time Temp Pulse Resp B/P Pulse Ox O2 Delivery O2 Flow Rate FiO2 05/24/16 04:00 98.7 119 16 112/68 98 05/24/16 00:15 98.8 111 16 101/62 98 05/23/16 20:00 98.1 109 16 93/48 98 05/23/16 16:00 98.0 109 18 99/61 96 05/23/16 12:00 98.0 111 18 84/52 97 I/O 05/23/16 05/23/16 05/23/16 05/24/16 05/24/16 05/24/16 07:00 15:00 23:00 07:00 15:00 23:00 Intake Total 0 ml 0 ml Balance 0 ml 0 ml Intake Oral 0 ml 0 ml # Voids 1 3 1 1 # Bowel Movements 0 0 Result Diagram: 05/22/16 0520 05/22/16 0520 Imaging Last Impressions Chest X-Ray 05/10/16 0000 Signed Impressions: Service Date/Time: Tuesday, May 10, 2016 00:10 - CONCLUSION: No acute cardiopulmonary process. Demetrio Pressley MD Liver Ultrasound 04/12/16 0000 Signed Impressions: Service Date/Time: Tuesday, April 12, 2016 22:29 - CONCLUSION: 1. Solid indeterminate mass in the left lobe of the liver as well as a tiny cyst. An MRI of the abdomen with without contrast may be helpful for further assessment if felt clinically warranted. The possibility of a metastatic lesion is not excluded. 2. Cholelithiasis. 3. Bilateral pleural effusions are suspected sonographically. Chau Ward MD Chest CT 04/11/16 0000 Signed Impressions: Service Date/Time: Monday, April 11, 2016 14:09 - CONCLUSION: 1. Multiple small scattered noncalcified pulmonary nodules which are nonspecific but are of concern for early metastatic disease. 2. The known large tumor mass in the right side of the face and neck is partially visualized with destructive change involving the right side of the mandible. This extends into the right supraclavicular region. Please see soft tissue neck CT for further details. 3. Low attenuation lesion in the left lobe of the liver again noted. Holland Villegas MD Abdomen/Pelvis CT 04/11/16 0000 Signed Impressions: Service Date/Time: Monday, April 11, 2016 14:09 - CONCLUSION: 1. 1.4 cm low-attenuation lesion left lobe of the liver of concern for a metastasis. There is a smaller more cystic appearing structure in the right lobe. 2. The remainder of the study is unremarkable except for a PEG tube in the stomach. Holland Villegas MD Upper Extremity Ultrasound 04/08/16 0000 Signed Impressions: Service Date/Time: Friday, April 08, 2016 13:04 - CONCLUSION: No thrombus. Deshawn Michele MD Neck CT 04/02/16 0000 Signed Impressions: Service Date/Time: Saturday, April 02, 2016 11:54 - CONCLUSION: Very large heterogeneous soft tissue mass along the right side of the face with gross destruction involving most of the right mandible. The mass contains amorphous calcifications and appears to involve the right sternocleidomastoid muscle. The mass appears to extend into the oral cavity with diffuse enlargement of the right tonsillar pillar. Neoplastic disease in the primary consideration. Niall Corrales MD Multiplanar Reconstruction 04/02/16 0000 Signed Impressions: Service Date/Time: Saturday, April 02, 2016 11:54 - CONCLUSION: 3-D reconstructive images demonstrating destruction involving most the right side of the mandible. Niall Corrales MD Head CT 04/02/16 0000 Signed Impressions: Service Date/Time: Saturday, April 02, 2016 11:54 - CONCLUSION: 1. Unremarkable CT scan of the brain 2. Large abnormal soft tissue mass with calcifications along the right side of the face. Niall Corrales MD Procedures central line placement PEG placement bone biopsy teeth extraction Radiation therapy Chemotherapy Other Results Laboratory Tests Test 05/20/16 05/22/16 06:33 05:20 Platelet Estimate HIGH Platelet Morphology Comment NORMAL Acanthocytes OCC White Blood Count 7.7 TH/MM3 Red Blood Count 3.12 MIL/MM3 Hemoglobin 9.0 GM/DL Hematocrit 27.5 % Mean Corpuscular Volume 88.3 FL Mean Corpuscular Hemoglobin 28.9 PG Mean Corpuscular Hemoglobin 32.7 % Concent Red Cell Distribution Width 15.3 % Platelet Count 488 TH/MM3 Mean Platelet Volume 6.4 FL Neutrophils (%) (Auto) 92.0 % Lymphocytes (%) (Auto) 1.6 % Monocytes (%) (Auto) 6.2 % Eosinophils (%) (Auto) 0.1 % Basophils (%) (Auto) 0.1 % Neutrophils # (Auto) 7.1 TH/MM3 Lymphocytes # (Auto) 0.1 TH/MM3 Monocytes # (Auto) 0.5 TH/MM3 Eosinophils # (Auto) 0.0 TH/MM3 Basophils # (Auto) 0.0 TH/MM3 CBC Comment DIFF FINAL Differential Comment Prothrombin Time 13.7 SEC Prothromb Time International 1.2 RATIO Ratio Sodium Level 135 MEQ/L Potassium Level 3.6 MEQ/L Chloride Level 97 MEQ/L Carbon Dioxide Level 26.0 MEQ/L Anion Gap 12 MEQ/L Blood Urea Nitrogen 13 MG/DL Creatinine 0.40 MG/DL Estimat Glomerular Filtration 243 ML/MIN Rate Random Glucose 89 MG/DL Calcium Level 8.7 MG/DL Phosphorus Level 2.5 MG/DL Magnesium Level 1.4 MG/DL Total Bilirubin 0.2 MG/DL Aspartate Amino Transf 13 U/L (AST/SGOT) Alanine Aminotransferase 10 U/L (ALT/SGPT) Alkaline Phosphatase 108 U/L Total Protein 6.0 GM/DL Albumin 1.5 GM/DL Triglycerides Level 124 MG/DL Objective Remarks General: No acute Distress. HEENT: large ulcerating exophytic mass on the right side of the face. mouth is partial shut. Lips cracked. Improving right facial edema CV RRR. no r/m/g Resp CTA B/L Abd soft NDNT EXT: no edema Medications and IVs Current Medications Medications (Trade) Dose Ordered Sig/Sara Route Start Time Stop Time Status Last Admin (Zofran Inj) 4 mg Q6H PRN IV PUSH 04/02/16 01:45 05/17/16 09:01 (NS Flush) 2 ml UNSCH PRN IVF 04/02/16 08:15 05/22/16 06:26 (NS Flush) 2 ml BID IVF 04/02/16 09:00 05/23/16 21:30 (Benadryl) 25 mg Q6H PRN PO 04/02/16 09:00 05/17/16 11:32 (Lovenox Inj) 30 mg Q24H SQ 04/04/16 15:30 05/23/16 15:30 (Free Water) VOLUME: 200 ML Q6HR G-TUBE 04/04/16 08:45 05/23/16 23:54 (Tylenol) 650 mg Q4H PRN PO 04/07/16 01:45 05/21/16 17:02 (Morphine Inj) 2 mg Q2HR PRN IV PUSH 04/08/16 09:00 05/17/16 15:00 (Hycet 325-7.5 Mg Liq) 15 ml Q3HR PRN PO 04/08/16 14:45 05/23/16 10:29 (Colace Liq) 100 mg BID PRN GT 04/15/16 12:15 05/11/16 05:08 (Lactulose Liq) 30 ml TID PRN G-TUBE 04/15/16 12:15 (Dulcolax Supp) 10 mg DAILY PRN OK 04/15/16 12:15 (Milk Of Magnesia Liq) 30 ml Q6H PRN GT 04/15/16 12:15 (Chapstick) 1 applic UNSCH PRN TOP 04/17/16 10:00 04/18/16 00:01 (Mag-Ox) 800 mg Q12HR GT 04/17/16 21:00 05/23/16 21:30 (Reglan Liq) 10 mg ACHS G-TUBE 04/19/16 16:00 05/24/16 05:03 (K-Phos) 500 mg Q12HR PO 04/24/16 12:00 05/23/16 21:30 (Lactinex) 1 tab TID PO 04/24/16 18:00 05/23/16 18:00 (Benadryl Inj) 25 mg Q4H PRN IV 04/26/16 19:00 (Diflucan) 200 mg DAILY PO 05/01/16 15:45 05/23/16 10:30 (Flagyl) 500 mg Q8HR PO 05/01/16 22:00 05/24/16 05:04 Potassium Bicarb/ Potassium Chloride 40 meq 40 meq Q12HR NG 05/04/16 22:00 05/23/16 21:30 (Unasyn Inj/NS Inj) 100 ml @ 200 mls/hr Q6H IV 05/10/16 22:00 05/24/16 03:43 (Magic Mouthwash Adult Liq) 5 ml QID PRN SWISH-SWAL 05/21/16 11:00 (Miralax) 17 gm DAILY PRN G-TUBE 05/21/16 11:00 (Silvadene 1% Cream (50 Gm)) 1 applic Q12HR TOPICAL 05/21/16 12:00 05/23/16 21:30 A/P Problem List: (1) Radiation-induced dermatitis ICD Code: L58.9 (2) 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 (3) 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 Squamous Cell Carcinoma of Oropharynx, CT of the face showed very large heterogeneous soft tissue mass along the right side of the face with gross destruction involving most of the right mandible. Probable Metastatic Disease to the Abdomen and Lung/Liver. 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 continue Radiation therapy and Chemotherapy as per cryptographic center specialist. and Radiation specialist following. Improving Facial edema. will have I and D tomorrow 2. Stomatitis and Mucositis, some otitis on Chemotherapy, continue Magic Mouth Wash 3. Sepsis one bottle of blood cultures, growing Pseudomonas Stutzeri. right facial wound and central line suspected source. Central line discontinued. was on Levofloxacin switched to Augmentin plus Flagyl and continue Fluconazole. Antibiotics handled by Attending physician, do not want ID specialist on the case. 4. 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 today 135 5. Hypercalcemia of malignancy, status post treatment with Aredia. resolved 6. Anemia secondary to Chemotherapy, Status post Blood transfusion. Hemoglobin 9 7. Severe Protein Calorie Malnutrition, status post PEG placement tube feedings 8. Constipation continue Colace, MiraLAX and Lactulose 9. electrolyte derangement Attending physician placed replacement and monitoring DVT prophylaxis with Lovenox. Code status DNR Discussed with patient and his Brother also nurse Miss Veloz in the room. GI prophylaxis: Lactinex, will add PPI. No changes to anterior assessment. Discharge Planning As per Attending physician. Richie Devries MD May 24, 2016 08:43
[2016-05-24 09:00] VITALS: BP 132/83; PULSE 110; TEMP 97; O2SAT 97
[2016-05-24 10:16] LABS: AUTOMATED NEUTROPHIL # 4.8 TH/MM3 (1.8-7.7); BASOPHIL % 0.2 % (0.0-2.0); EOSINOPHIL % 0.3 % (0.0-4.0); HEMATOCRIT 24.3 % (39.0-51.0); LYMPH % 2.8 % (9.0-44.0); LYMPHOCYTE # 0.2 TH/MM3 (1.0-4.8); MEAN CELL VOLUME 87.2 FL (80.0-100.0); MEAN CORPUSCULAR HEMOGLOBIN 29.4 PG (27.0-34.0); MEAN CORPUSCULAR HGB CONC 33.7 % (32.0-36.0); MONO % 9.7 % (0.0-8.0); PLATELET COUNT 515 TH/MM3 (150-450); RED BLOOD COUNT 2.79 MIL/MM3 (4.50-5.90); RED CELL DISTRIBUTION WIDTH 15.3 % (11.6-17.2); WHITE BLOOD COUNT 5.5 TH/MM3 (4.0-11.0)
[2016-05-24 10:18] LABS: HEMO FLAGS AUTO DIFF
[2016-05-24 10:32] LABS: MAGNESIUM 1.6 MG/DL (1.5-2.5); POTASSIUM 3.8 MEQ/L (3.5-5.1)
[2016-05-24 10:58] LABS: BANDS 26 % (0-6); METAMYELOCYTES 2 % (0-1); NEUTROPHIL # MANUAL DIFF 4.9 TH/MM3 (1.8-7.7); PLATELET ESTIMATE SMEAR HIGH (NORMAL); PLATELET MORPHOLOGY CLUMPED (NORMAL); POLYS (SEG NEUTROPHILS) 61 % (16-70); SCAN/DIFF FINAL DIFF MANUAL; TOXIC GRANULATION 2+ (NORMAL); WBC DIFF SAMPLE 100
[2016-05-24] MEDS: SODIUM CHLOR 0.9% 1000 ML INJ 1,000 ML IV SCH ×2 (11:26→18:45)
[2016-05-24] MEDS: SODIUM CHLORIDE 0.9% FLUSH 5 ML FLUSH IVF SCH ×2 (11:26→21:33)
[2016-05-24] MEDS: SILVER SULFADIAZINE 1% CR 50 GM JAR TOPICAL SCH ×2 (11:26→21:35)
[2016-05-24] MEDS: ENOXAPARIN SODIUM 30 MG/0.3 ML SYRINGE SQ SCH (15:30)
[2016-05-24 17:00] VITALS: BP 92/57; PULSE 100; O2SAT 97
[2016-05-24] MEDS: ACETAMINOPHEN 325MG/HYDROcodone 7.5MG/15ML UDC PO PRN (17:44)
[2016-05-24 20:00] VITALS: BP 91/56; PULSE 97; RESP 18; TEMP 97; O2SAT 99
[2016-05-25] VITALS: BP 100/66; PULSE 91; RESP 17; TEMP 97.7; O2SAT 99
[2016-05-25 04:00] VITALS: BP 94/57; PULSE 110; RESP 18; TEMP 98.9; O2SAT 99
[2016-05-25] MEDS: AMPICILLIN-SULBACTAM INJ 3 GM in SODIUM CHLORIDE 0.9% INJ 100 ML IV SCH ×4 (04:03→22:00)
[2016-05-25] MEDS: METOCLOPRAMIDE HCL SYRUP 10 MG/10 ML UDC G-TUBE SCH ×4 (05:29→23:26)
[2016-05-25] MEDS: metroNIDAZOLE 500 MG TAB PO SCH ×3 (05:29→23:26)
[2016-05-25] MEDS: FREE WATER G-TUBE SCH ×5 (05:33→23:27)
[2016-05-25] MEDS: POTASSIUM CHLORIDE 25 MEQ EFFERVESCENT TAB NG SCH ×2 (08:23→23:26)
[2016-05-25] MEDS: FLUCONAZOLE 200 MG TAB PO SCH (08:24)
[2016-05-25] MEDS: POTASSIUM PHOSPHATE MONOBASIC 500 MG TAB PO SCH ×2 (08:24→23:27)
[2016-05-25] MEDS: LACTOBACILLUS ACIDOPHILUS TAB PO SCH ×3 (08:24→17:29)
[2016-05-25] MEDS: MAGNESIUM OXIDE 400 MG TAB GT SCH ×2 (08:24→23:26)
[2016-05-25] MEDS: SILVER SULFADIAZINE 1% CR 50 GM JAR TOPICAL SCH ×2 (08:24→21:00)
[2016-05-25] MEDS: SODIUM CHLORIDE 0.9% FLUSH 5 ML FLUSH IVF SCH ×2 (10:53→21:00)
[2016-05-25 12:00] VITALS: BP 121/62; PULSE 109; TEMP 99.1; O2SAT 97
[2016-05-25 13:25] LABS: AUTOMATED NEUTROPHIL # 5.6 TH/MM3 (1.8-7.7); BASOPHIL % 0.1 % (0.0-2.0); EOSINOPHIL % 0.1 % (0.0-4.0); HEMATOCRIT 23.9 % (39.0-51.0); LYMPH % 4.5 % (9.0-44.0); LYMPHOCYTE # 0.3 TH/MM3 (1.0-4.8); MEAN CELL VOLUME 86.6 FL (80.0-100.0); MEAN CORPUSCULAR HEMOGLOBIN 29.6 PG (27.0-34.0); MEAN CORPUSCULAR HGB CONC 34.2 % (32.0-36.0); NEUT % 85.3 % (16.0-70.0); PLATELET COUNT 546 TH/MM3 (150-450); RED BLOOD COUNT 2.76 MIL/MM3 (4.50-5.90); RED CELL DISTRIBUTION WIDTH 15.4 % (11.6-17.2); WHITE BLOOD COUNT 6.5 TH/MM3 (4.0-11.0)
[2016-05-25 13:30] LABS: HEMO FLAGS AUTO DIFF
[2016-05-25 13:45] LABS: BICARBONATE 26.7 MEQ/L (21.0-32.0); POTASSIUM 3.9 MEQ/L (3.5-5.1)
--- NOTE | 2016-05-25 13:55 | HHI.PR ---
Subjective Remarks s/p biopsy mass right face/extraction of mandibular teeth, SCCA chemo.radiation under progress Objective Vital Signs Date Time Temp Pulse Resp B/P Pulse Ox O2 Delivery O2 Flow Rate FiO2 05/25/16 04:00 98.9 110 18 94/57 99 05/25/16 00:00 97.7 91 17 100/66 99 05/24/16 20:00 97.0 97 18 91/56 99 05/24/16 17:00 100 92/57 97 I/O 05/24/16 05/24/16 05/24/16 05/25/16 05/25/16 05/25/16 07:00 15:00 23:00 07:00 15:00 23:00 Intake Total 0 ml 360 ml 240 ml Output Total 200 ml Balance 0 ml 160 ml 240 ml Intake Oral 0 ml 0 ml IV Total 240 ml Tube Feeding 240 ml Other 120 ml Output Urine Total 200 ml # Voids 1 2 # Bowel Movements 0 Result Diagram: 05/25/16 1300 05/25/16 1300 Procedures central line placement PEG placement bone biopsy teeth extraction Radiation therapy Chemotherapy Objective Remarks Assessment and Plan Assessment and Plan mass right face/mandible region s/p extraction of teeth/biopsy s/p peg tube/central line invasive squamous cell carcinoma keratinizing Debridement surgery cancelled - d/w Dr. Garcia Rad. Onc; was informed due to continuing/high radiation dose, high risk of bleeding from lesion may not be controllable. will wait for chemo/rad tx to finish and reevaluate at a later date Joseph Macias DMD May 25, 2016 13:55
[2016-05-25 14:10] LABS: BANDS 8 % (0-6); MYELOCYTES 1 % (0-0); NEUTROPHIL # MANUAL DIFF 5.6 TH/MM3 (1.8-7.7); POLYS (SEG NEUTROPHILS) 77 % (16-70); WBC DIFF SAMPLE 100
[2016-05-25 14:11] LABS: PLATELET ESTIMATE SMEAR HIGH (NORMAL); PLATELET MORPHOLOGY NORMAL (NORMAL); SCAN/DIFF FINAL DIFF MANUAL
[2016-05-25] MEDS: SODIUM CHLOR 0.9% 1000 ML INJ 1,000 ML IV SCH (14:38)
[2016-05-25] MEDS: ACETAMINOPHEN 325MG/HYDROcodone 7.5MG/15ML UDC PO PRN ×2 (14:49→23:27)
[2016-05-25] MEDS: ENOXAPARIN SODIUM 30 MG/0.3 ML SYRINGE SQ SCH (17:29)
--- NOTE | 2016-05-25 19:57 | HHI.PR ---
Subjective Remarks Patient seen at 11:47 AM. Patient denies chest pain, short of breath Patient also denies nausea vomiting Patient complains of feeling tired BP noted to be in the low 90s Objective Vitals Vital Signs Date Time Temp Pulse Resp B/P Pulse Ox O2 Delivery O2 Flow Rate FiO2 05/25/16 12:00 99.1 109 121/62 97 05/25/16 04:00 98.9 110 18 94/57 99 05/25/16 00:00 97.7 91 17 100/66 99 05/24/16 20:00 97.0 97 18 91/56 99 I/O 05/24/16 05/24/16 05/24/16 05/25/16 05/25/16 05/25/16 07:00 15:00 23:00 07:00 15:00 23:00 Intake Total 0 ml 360 ml 240 ml 940 ml Output Total 200 ml Balance 0 ml 160 ml 240 ml 940 ml Intake Oral 0 ml 0 ml IV Total 240 ml 500 ml Tube Feeding 240 ml 240 ml Other 120 ml 200 ml Output Urine Total 200 ml # Voids 1 2 # Bowel Movements 0 Result Diagram: 05/25/16 1300 05/25/16 1300 Objective Remarks Gen NAD HEENT: large ulcerating exophytic mass on the right side of the face. mouth is partial shut. Lips cracked. CV RRR. no r/m/g Resp CTA B/L Abd soft NDNT EXT: no edema Procedures central line placement PEG placement bone biopsy teeth extraction Medications and IVs Current Medications Medications (Trade) Dose Ordered Sig/Sara Route Start Time Stop Time Status Last Admin (Zofran Inj) 4 mg Q6H PRN IV PUSH 04/02/16 01:45 05/17/16 09:01 (NS Flush) 2 ml UNSCH PRN IVF 04/02/16 08:15 05/22/16 06:26 (NS Flush) 2 ml BID IVF 04/02/16 09:00 05/25/16 10:53 (Benadryl) 25 mg Q6H PRN PO 04/02/16 09:00 05/17/16 11:32 (Lovenox Inj) 30 mg Q24H SQ 04/04/16 15:30 05/25/16 17:29 (Free Water) VOLUME: 200 ML Q6HR G-TUBE 04/04/16 08:45 05/25/16 17:29 (Tylenol) 650 mg Q4H PRN PO 04/07/16 01:45 05/21/16 17:02 (Morphine Inj) 2 mg Q2HR PRN IV PUSH 04/08/16 09:00 05/17/16 15:00 (Hycet 325-7.5 Mg Liq) 15 ml Q3HR PRN PO 04/08/16 14:45 05/25/16 14:49 (Colace Liq) 100 mg BID PRN GT 04/15/16 12:15 05/11/16 05:08 (Lactulose Liq) 30 ml TID PRN G-TUBE 04/15/16 12:15 (Dulcolax Supp) 10 mg DAILY PRN WI 04/15/16 12:15 (Milk Of Magnesia Liq) 30 ml Q6H PRN GT 04/15/16 12:15 (Chapstick) 1 applic UNSCH PRN TOP 04/17/16 10:00 04/18/16 00:01 (Mag-Ox) 800 mg Q12HR GT 04/17/16 21:00 05/25/16 08:24 (Reglan Liq) 10 mg ACHS G-TUBE 04/19/16 16:00 05/25/16 17:29 (K-Phos) 500 mg Q12HR PO 04/24/16 12:00 05/25/16 08:24 (Lactinex) 1 tab TID PO 04/24/16 18:00 05/25/16 17:29 (Benadryl Inj) 25 mg Q4H PRN IV 04/26/16 19:00 (Diflucan) 200 mg DAILY PO 05/01/16 15:45 05/25/16 08:24 (Flagyl) 500 mg Q8HR PO 05/01/16 22:00 05/25/16 14:38 Potassium Bicarb/ Potassium Chloride 40 meq 40 meq Q12HR NG 05/04/16 22:00 05/25/16 08:23 (Unasyn Inj/NS Inj) 100 ml @ 200 mls/hr Q6H IV 05/10/16 22:00 05/25/16 17:28 (Magic Mouthwash Adult Liq) 5 ml QID PRN SWISH-SWAL 05/21/16 11:00 (Miralax) 17 gm DAILY PRN G-TUBE 05/21/16 11:00 Silver Sulfadiazine 1 applic 1 applic Q12HR TOPICAL 05/21/16 12:00 05/25/16 08:24 (NS 1000 ml Inj) 1,000 ml @ 100 mls/hr Q10H IV 05/24/16 08:45 05/25/16 14:38 Urinary Catheter: No Vascular Central Line Catheter: No A/P Problem List: (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 Status: Acute (2) Stomatitis and mucositis ICD Code: K12.1 Status: Acute (3) Sepsis ICD Code: A41.9 Status: Resolved (4) Leukocytosis ICD Code: D72.829 Status: Resolved (5) Sinus tachycardia ICD Code: R00.0 Status: Resolved (6) Hyponatremia ICD Code: E87.1 Status: Acute (7) Hypercalcemia of malignancy ICD Code: E83.52 Status: Resolved (8) 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: Chronic (9) Electrolyte abnormality ICD Code: E87.8 Status: Resolved (10) Severe protein-calorie malnutrition ICD Code: E43 Status: Acute (11) Constipation ICD Code: K59.00 Status: Resolved (12) DNR no code (do not resuscitate) ICD Code: Z66 Status: Acute (13) Palliative care patient ICD Code: Z51.5 Status: Acute (14) Hypomagnesemia ICD Code: E83.42 Status: Resolved (15) Nausea ICD Code: R11.0 Status: Resolved (16) Radiation-induced dermatitis ICD Code: L58.9 Status: Acute Assessment and Plan (1) Squamous cell carcinoma of oropharynx Plan: Squamous Cell Carcinoma of Oropharynx, CT of the face showed very large heterogeneous soft tissue mass along the right side of the face with gross destruction involving most of the right mandible. Probable Metastatic Disease to the Abdomen and Lung/Liver. 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 continue Radiation therapy and Chemotherapy as per pacs specialist. and Radiation specialist following. Improving Facial edema. will have I and D tomorrow (2) Stomatitis and mucositis Plan: Concern for radiation dermatitis. Radiation and chemotherapy held last week. Radiation therapy was resumed this week and chemotherapy on 05/19/16. (3) Sepsis Plan: Patient was having low-grade fevers which have not come back since . Possibly right facial wound and central line suspected to be the source. Central line was discontinued. 1 bottle blood cultures with Pseudomonas stutzeri. Patient was treated with IV Zosyn for total of 2 weeks N date 04/20/16. Repeat blood cultures on 24/, 04/19,05/04, 05/10 all negative x5. Patient was being treated with Levaquin, Flagyl and fluconazole orally. Levaquin was discontinued. The patient is currently being treated with IV Unasyn, oral Flagyl. sp oral fluconazole treatment. The prior exam handled by attending physician who does not want ID specialist on the case. (4) Leukocytosis Plan: Leukocytosis likely secondary to sepsis as above. Leukocytosis resolved. Continue to monitor CBC with differential. 05/25 WBC within normal range. (5) Sinus tachycardia Plan: TSH within normal limits. Continue to monitor vital signs. Possibly compensatory to anemia. Patient status post infusion of packed red blood cells after hemoglobin dropped to 6.5. However patient still with sinus tachycardia. Continue to monitor vital signs. (6) Hyponatremia Plan: Suspected SIADH. Patient looks euvolemic. 05/18 Initially free water was decreased with temporary correction of hyponatremia. sodium now trending down to 132. Check serum and urine osmolality due to worsening hyponatremia. 05/19 sodium much improved and trending up, today 136. Urine and serum aspartate consistent with SIADH which is likely secondary to nausea. Continue to monitor BMP and sodium. Free water was discontinued. 05/25 Sodium trending down. Patient is on IV fluids which I will stop for now. If bp gets low then might bennefit from IV fluid boluses instead of continuos infusion. (7) Hypercalcemia of malignancy Plan: Status post treatment with Aredia. Now resolved. Continue to monitor. (8) Anemia due to chemotherapy Plan: Status post PRBC transfusion. Hemoglobin stable at 8.9. Continue to monitor H&H. Transfuse to keep hemoglobin more than 7 . 05/16 hemoglobin today down to 6.5. Likely secondary to chemotherapy. Improved after transfusion of 2 units of packed red blood cells. Hemoglobin now 8.6 and stable for several days after the fusion. 05/25 hemoglobin stable at 8.2. Continue to monitor CBC periodically. (9) Electrolyte abnormality Plan: Patient with hypokalemia, hypomagnesemia and hypophosphatemia likely from nutritional deficiency due to decreased by mouth intake. All have been replaced and corrected - continue to monitor electrolytes. (10) Severe protein-calorie malnutrition Plan: As evidenced by a more low albumin of 1.5, patient not eating much due to location of cancer. Registered dietitian consulting. Follow-up recommendations. Patient currently on Jevity 1.5 with 6 boluses daily which the patient has been tolerating. However the patient has not been gaining weight and dietitian recommends switching to feeding formulas to TwoCal HN. Changes be made. Schedule of bolus feeding changed on 05/19 to better fit the patient's radiotherapy schedule and patient would be off the floor and miss tube feedings. (11) Constipation Plan: Seems to be stable. On Senna, colace and Miralax daily. (12) DNR no code (do not resuscitate) Plan: Patient has DO NOT RESUSCITATE status (13) Palliative care patient Plan: Patient being followed by palliative care. GI prophylaxis: Lactinex, will add PPI. Prophylaxis: SCDs, continue Lovenox subcutaneously. Discharge Planning Most likely a long hospital stay due to severity of cancer. Continue to monitor in the oncology floor, and Kelsey chemotherapy and possible debulking surgery by general surgery. Nirav Preston MD May 25, 2016 19:57
[2016-05-25 20:00] VITALS: BP 92/53; PULSE 113; RESP 16; TEMP 99.6; O2SAT 98
[2016-05-26] VITALS (8 sets, daily range): BP systolic 79–109; BP diastolic 52–60; PULSE 89–111; RESP 16–22; TEMP 96.3–99.9; O2SAT 95–98
[2016-05-26] MEDS: metroNIDAZOLE 500 MG TAB PO SCH ×3 (06:00→22:27)
[2016-05-26] MEDS: FREE WATER G-TUBE SCH ×4 (06:00→23:38)
[2016-05-26] MEDS: AMPICILLIN-SULBACTAM INJ 3 GM in SODIUM CHLORIDE 0.9% INJ 100 ML IV SCH ×4 (06:00→23:37)
[2016-05-26] MEDS: METOCLOPRAMIDE HCL SYRUP 10 MG/10 ML UDC G-TUBE SCH ×4 (07:00→22:27)
[2016-05-26 07:06] LABS: AUTOMATED NEUTROPHIL # 5.1 TH/MM3 (1.8-7.7); BASOPHIL % 0.3 % (0.0-2.0); EOSINOPHIL % 0.3 % (0.0-4.0); HEMATOCRIT 22.6 % (39.0-51.0); LYMPH % 4.3 % (9.0-44.0); LYMPHOCYTE # 0.3 TH/MM3 (1.0-4.8); MEAN CELL VOLUME 88.5 FL (80.0-100.0); MEAN CORPUSCULAR HEMOGLOBIN 29.6 PG (27.0-34.0); MEAN CORPUSCULAR HGB CONC 33.5 % (32.0-36.0); MONO % 14.1 % (0.0-8.0); PLATELET COUNT 497 TH/MM3 (150-450); RED BLOOD COUNT 2.56 MIL/MM3 (4.50-5.90); RED CELL DISTRIBUTION WIDTH 15.5 % (11.6-17.2); WHITE BLOOD COUNT 6.3 TH/MM3 (4.0-11.0)
[2016-05-26 07:12] LABS: HEMO FLAGS AUTO DIFF
[2016-05-26 07:22] LABS: ALT (GPT) 12 U/L (12-78); ANION GAP 7 MEQ/L (5-15); AST (GOT) 15 U/L (15-37); BICARBONATE 27.3 MEQ/L (21.0-32.0); BLOOD UREA NITROGEN 11 MG/DL (7-18); CHLORIDE 100 MEQ/L (98-107); GLOMERULAR FILTRATION RATE 383 ML/MIN (>89); POTASSIUM 3.7 MEQ/L (3.5-5.1); SODIUM (NA) 134 MEQ/L (136-145)
[2016-05-26 07:24] LABS: ALKALINE PHOSPHATASE 101 U/L (45-117); TOTAL BILIRUBIN ADULT 0.2 MG/DL (0.2-1.0)
[2016-05-26 08:07] LABS: BANDS 18 % (0-6); METAMYELOCYTES 1 % (0-1); NEUTROPHIL # MANUAL DIFF 5.5 TH/MM3 (1.8-7.7); PLATELET ESTIMATE SMEAR HIGH (NORMAL); PLATELET MORPHOLOGY NORMAL (NORMAL); POLYS (SEG NEUTROPHILS) 68 % (16-70); SCAN/DIFF FINAL DIFF MANUAL; WBC DIFF SAMPLE 100
[2016-05-26] MEDS: SODIUM CHLORIDE 0.9% FLUSH 5 ML FLUSH IVF SCH ×2 (09:00→21:05)
--- NOTE | 2016-05-26 09:11 | PD.ONC.PN ---
Subjective Subjective Remarks Afebrile overnight. Patient tolerating chemo and radiation. Tolerating tube feeds. Objective Data Date Time Temp Pulse Resp B/P Pulse Ox O2 Delivery O2 Flow Rate FiO2 05/26/16 06:23 97.1 102 16 85/54 96 05/26/16 00:49 16 05/26/16 00:00 99.0 109 16 79/54 98 05/25/16 20:00 99.6 113 16 92/53 98 05/25/16 12:00 99.1 109 121/62 97 Result Diagram: 05/26/16 0550 05/26/16 0550 Laboratory Results Laboratory Tests Test 05/25/16 05/26/16 13:00 05:50 White Blood Count 6.5 TH/MM3 6.3 TH/MM3 Red Blood Count 2.76 MIL/MM3 2.56 MIL/MM3 Hemoglobin 8.2 GM/DL 7.6 GM/DL Hematocrit 23.9 % 22.6 % Mean Corpuscular Volume 86.6 FL 88.5 FL Mean Corpuscular Hemoglobin 29.6 PG 29.6 PG Mean Corpuscular Hemoglobin 34.2 % 33.5 % Concent Red Cell Distribution Width 15.4 % 15.5 % Platelet Count 546 TH/MM3 497 TH/MM3 Mean Platelet Volume 6.1 FL 6.2 FL Neutrophils (%) (Auto) 85.3 % 81.0 % Lymphocytes (%) (Auto) 4.5 % 4.3 % Monocytes (%) (Auto) 10.0 % 14.1 % Eosinophils (%) (Auto) 0.1 % 0.3 % Basophils (%) (Auto) 0.1 % 0.3 % Neutrophils # (Auto) 5.6 TH/MM3 5.1 TH/MM3 Lymphocytes # (Auto) 0.3 TH/MM3 0.3 TH/MM3 Monocytes # (Auto) 0.7 TH/MM3 0.9 TH/MM3 Eosinophils # (Auto) 0.0 TH/MM3 0.0 TH/MM3 Basophils # (Auto) 0.0 TH/MM3 0.0 TH/MM3 CBC Comment AUTO DIFF AUTO DIFF Differential Total Cells 100 100 Counted Neutrophils % (Manual) 77 % 68 % Band Neutrophils % 8 % 18 % Lymphocytes % 6 % 9 % Monocytes % 8 % 4 % Neutrophils # (Manual) 5.6 TH/MM3 5.5 TH/MM3 Myelocytes 1 % Differential Comment FINAL DIFF FINAL DIFF MANUAL MANUAL Platelet Estimate HIGH HIGH Platelet Morphology Comment NORMAL NORMAL Red Cell Morphology Comment NORMAL Sodium Level 134 MEQ/L 134 MEQ/L Potassium Level 3.9 MEQ/L 3.7 MEQ/L Chloride Level 99 MEQ/L 100 MEQ/L Carbon Dioxide Level 26.7 MEQ/L 27.3 MEQ/L Anion Gap 8 MEQ/L 7 MEQ/L Blood Urea Nitrogen 13 MG/DL 11 MG/DL Creatinine 0.41 MG/DL 0.27 MG/DL Estimat Glomerular Filtration 237 ML/MIN 383 ML/MIN Rate Random Glucose 149 MG/DL 89 MG/DL Calcium Level 8.6 MG/DL 8.5 MG/DL Metamyelocytes 1 % Atypical Lymphocytes % Total Bilirubin 0.2 MG/DL Aspartate Amino Transf 15 U/L (AST/SGOT) Alanine Aminotransferase 12 U/L (ALT/SGPT) Alkaline Phosphatase 101 U/L Total Protein 5.8 GM/DL Albumin 1.5 GM/DL Administered Medications Medications (Trade) Dose Ordered Sig/Sara Route PRN Reason Start Time Stop Time Status Last Admin Dose Admin Ondansetron HCl (Zofran Inj) 4 mg Q6H PRN IV PUSH NAUSEA 04/02/16 01:45 05/17/16 09:01 IV Flush (NS Flush) 2 ml UNSCH PRN IVF FLUSH AFTER USING IV ACCESS 04/02/16 08:15 05/22/16 06:26 IV Flush (NS Flush) 2 ml BID IVF 04/02/16 09:00 05/25/16 10:53 Diphenhydramine HCl (Benadryl) 25 mg Q6H PRN PO ITCHING 04/02/16 09:00 05/17/16 11:32 Enoxaparin Sodium (Lovenox Inj) 30 mg Q24H SQ 04/04/16 15:30 05/25/16 17:29 Water (Free Water) VOLUME: 200 ML Q6HR G-TUBE 04/04/16 08:45 05/26/16 06:00 Acetaminophen (Tylenol) 650 mg Q4H PRN PO FEVER OVER 101.0 04/07/16 01:45 05/21/16 17:02 Morphine Sulfate (Morphine Inj) 2 mg Q2HR PRN IV PUSH PAIN SCALE 9 TO 10 04/08/16 09:00 05/17/16 15:00 Acetaminophen/ Hydrocodone Bitart (Hycet 325-7.5 Mg Liq) 15 ml Q3HR PRN PO pain1-9 04/08/16 14:45 05/25/16 23:27 Docusate Sodium (Colace Liq) 100 mg BID PRN GT CONSTIPATION 04/15/16 12:15 05/11/16 05:08 Padimate O (Chapstick) 1 applic UNSCH PRN TOP DISCOMFORT 04/17/16 10:00 04/18/16 00:01 Magnesium Oxide (Mag-Ox) 800 mg Q12HR GT 04/17/16 21:00 05/25/16 23:26 Metoclopramide HCl (Reglan Liq) 10 mg ACHS G-TUBE 04/19/16 16:00 05/26/16 07:00 Potassium Phosphate (K-Phos) 500 mg Q12HR PO 04/24/16 12:00 05/25/16 23:27 Lactobacillus Acidophilus (Lactinex) 1 tab TID PO 04/24/16 18:00 05/25/16 17:29 Fluconazole (Diflucan) 200 mg DAILY PO 05/01/16 15:45 05/25/16 08:24 Metronidazole (Flagyl) 500 mg Q8HR PO 05/01/16 22:00 05/26/16 06:00 Potassium Bicarb/ Potassium Chloride 40 meq 40 meq Q12HR NG 05/04/16 22:00 05/25/16 23:26 Ampicillin Sodium/ Sulbactam Sodium/ Sodium Chloride (Unasyn Inj/NS Inj) 100 ml @ 200 mls/hr Q6H IV 05/10/16 22:00 05/26/16 06:00 Silver Sulfadiazine 1 applic 1 applic Q12HR TOPICAL 05/21/16 12:00 05/25/16 21:00 Sodium Chloride (NS 1000 ml Inj) 1,000 ml @ 100 mls/hr Q10H IV 05/24/16 08:45 Hold 05/25/16 14:38 Objective Remarks GENERAL: Young man, sitting upright in bed, brother at bedside. SKIN: Warm and dry. HEAD: Normocephalic. tumor right face, significantly improved. EYES: No injection or drainage. NECK: Supple, trachea midline. CARDIOVASCULAR: Regular rate and rhythm RESPIRATORY: Breath sounds equal bilaterally. No accessory muscle use. GASTROINTESTINAL: Abdomen soft, non-tender, nondistended. EXTREMITIES: No cyanosis NEUROLOGICAL: awake, moving all extremities. Assessment/Plan Assessment 35y/o male with invasive squamous cell carcinoma receiving weekly carbo/taxol and BID XRT. 04/12/16--XRT started; twice daily. 04/13/16: weekly carbo/taxol dose 1 given 04/21/16: weekly carbo/taxol dose 2 given 04/28/16: weekly carbo/taxol dose 3 given 05/05/16:weekly carbo/taxol dose 4 given 05/12/16: Plan HOLD this week carbo/taxol 05/19/16: weekly carbo/taxol dose 5 today. 05/26/16: weekly carbo/taxol dose 6 today (last chemotherapy) Plan 1. give chemotherapy today 2. monitor CBC, BMP 3. XRT to end Sunday/Sunday of next week. last chemotherapy today. plan will be to follow monthly with local wound care and obtain outpatient PET/CT scan in ~ 12 weeks. recommend waiting at least 10weeks before attempting resection to give the radiation/chemo plenty of time to take full effect. Attending Statement The exam, history, and the medical decision-making described in the above note were completed with the assistance of the mid-level provider. I reviewed and agree with the findings presented. I attest that I had a [id number] encounter with the patient on the same day, and personally performed and documented my assessment and findings in the medical record. would looks much better. would like to approach this like a classic head and neck case. Goal will be to complete therapy and then wait with local wound care over the neck several months. Approximately 12 weeks after tx done would like to do a pet scan to rule out mets and determine where we have VIABLE TUMOR POSSIBLY AMENABLE TO SURGICAL RESECTION. It is too early to consider resection now. Sirisha Cotton May 26, 2016 09:11 Yovany Lezama MD May 26, 2016 09:25
[2016-05-26] MEDS ORDERED: diphenhydrAMINE HCL 25 MG CAP PO PRN (09:15)
[2016-05-26] MEDS ORDERED: SODIUM CHLOR 0.9% 250 ML INJ 250 ML IV ONE (09:15)
[2016-05-26] MEDS ORDERED: ACETAMINOPHEN 325 MG TAB PO PRN (09:15)
[2016-05-26] MEDS ORDERED: SODIUM CHLOR 0.9% 1000 ML INJ 1,000 ML IV ONE (10:00)
--- NOTE | 2016-05-26 10:50 | HHI.PR ---
Subjective Subjective Notes Resting in bed Dr. Lezama and Eidlia PA at bedside Brother Evelyne at bedside Objective Vitals/I&O Vital Signs Date Time Temp Pulse Resp B/P Pulse Ox O2 Delivery O2 Flow Rate FiO2 05/26/16 08:00 96.9 111 21 93/60 95 Labs Laboratory Tests Test 05/25/16 05/26/16 13:00 05:50 White Blood Count 6.5 6.3 Red Blood Count 2.76 2.56 Hemoglobin 8.2 7.6 Hematocrit 23.9 22.6 Mean Corpuscular Volume 86.6 88.5 Mean Corpuscular Hemoglobin 29.6 29.6 Mean Corpuscular Hemoglobin 34.2 33.5 Concent Red Cell Distribution Width 15.4 15.5 Platelet Count 546 497 Mean Platelet Volume 6.1 6.2 Neutrophils (%) (Auto) 85.3 81.0 Lymphocytes (%) (Auto) 4.5 4.3 Monocytes (%) (Auto) 10.0 14.1 Eosinophils (%) (Auto) 0.1 0.3 Basophils (%) (Auto) 0.1 0.3 Neutrophils # (Auto) 5.6 5.1 Lymphocytes # (Auto) 0.3 0.3 Monocytes # (Auto) 0.7 0.9 Eosinophils # (Auto) 0.0 0.0 Basophils # (Auto) 0.0 0.0 CBC Comment AUTO DIFF AUTO DIFF Differential Total Cells 100 100 Counted Neutrophils % (Manual) 77 68 Band Neutrophils % 8 18 Lymphocytes % 6 9 Monocytes % 8 4 Neutrophils # (Manual) 5.6 5.5 Myelocytes 1 Differential Comment FINAL DIFF FINAL DIFF MANUAL MANUAL Platelet Estimate HIGH HIGH Platelet Morphology Comment NORMAL NORMAL Red Cell Morphology Comment NORMAL Sodium Level 134 134 Potassium Level 3.9 3.7 Chloride Level 99 100 Carbon Dioxide Level 26.7 27.3 Anion Gap 8 7 Blood Urea Nitrogen 13 11 Creatinine 0.41 0.27 Estimat Glomerular Filtration 237 383 Rate Random Glucose 149 89 Calcium Level 8.6 8.5 Metamyelocytes 1 Atypical Lymphocytes Total Bilirubin 0.2 Aspartate Amino Transf 15 (AST/SGOT) Alanine Aminotransferase 12 (ALT/SGPT) Alkaline Phosphatase 101 Total Protein 5.8 Albumin 1.5 Cardiovascular: Regular Lungs: Clear Abdomen: Other (PEG in place ) Narrative Exam Face: large RIGHT sided facial malignancy A/P Assessment and Plan 35 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 MS AVILES IS DOCUMENTING OUR VISIT IN THE EMR AND ENTERED ORDERS UNDER MY DIRECT SUPERVISION. I DISCUSSED THE CARE PLAN WITH THE PATIENT AND THEIR [facility] ST[facility]FF. Brittnee Meraz MD, FACS May 26, 2016 10:50 Juan Oseguera MD Jun 03, 2016 13:40
[2016-05-26] MEDS: POTASSIUM PHOSPHATE MONOBASIC 500 MG TAB PO SCH ×2 (11:15→22:27)
[2016-05-26] MEDS: LACTOBACILLUS ACIDOPHILUS TAB PO SCH ×3 (11:16→16:41)
[2016-05-26] MEDS: FLUCONAZOLE 200 MG TAB PO SCH (11:16)
[2016-05-26] MEDS: MAGNESIUM OXIDE 400 MG TAB GT SCH ×2 (11:16→22:26)
[2016-05-26] MEDS: POTASSIUM CHLORIDE 25 MEQ EFFERVESCENT TAB NG SCH ×2 (11:16→22:21)
[2016-05-26] MEDS: SILVER SULFADIAZINE 1% CR 50 GM JAR TOPICAL SCH ×2 (11:18→22:29)
[2016-05-26] MEDS: ACETAMINOPHEN 325MG/HYDROcodone 7.5MG/15ML UDC PO PRN ×2 (11:47→21:13)
[2016-05-26] MEDS ORDERED: FAMOTIDINE 20 MG/2 ML VIAL IV ONE (15:00)
[2016-05-26] MEDS ORDERED: DEXAMETHASONE INJ 10 MG in SODIUM CHLORIDE 0.9% INJ 50 ML IV ONE (15:00)
[2016-05-26] MEDS ORDERED: diphenhydrAMINE HCL 25 MG CAP PO ONE (15:00)
[2016-05-26] MEDS ORDERED: GRANISETRON HCL 1 MG/ML VIAL IV ONE (15:00)
[2016-05-26] MEDS ORDERED: SODIUM CHLOR 0.9% IV ONE ×2 (16:00→17:00)
[2016-05-26] MEDS ORDERED: PACLITAXEL IV ONE (16:00)
[2016-05-26] MEDS ORDERED: SODIUM CHLOR 0.9% 250 ML INJ 250 ML IV SCH (16:00)
[2016-05-26] MEDS: ENOXAPARIN SODIUM 30 MG/0.3 ML SYRINGE SQ SCH (16:44)
[2016-05-26] MEDS ORDERED: CARBOPLATIN IV ONE (17:00)
--- NOTE | 2016-05-26 17:57 | HHI.PR ---
Subjective Remarks Deferred entry, patient seen earlier today at 11:15 AM. Patient denies any chest pain, short of breath Denies fevers or chills. Patient noted to be hypotensive with systolic blood pressure in the mid 80s to low 90s. Patient denies dizziness Hemoglobin trending down. Patient feels very tired. Objective Vitals Vital Signs Date Time Temp Pulse Resp B/P Pulse Ox O2 Delivery O2 Flow Rate FiO2 05/26/16 16:00 96.3 97 20 88/56 98 05/26/16 13:18 98.0 103 18 92/52 05/26/16 12:00 98 22 99/54 98 05/26/16 08:00 96.9 111 21 93/60 95 05/26/16 06:23 97.1 102 16 85/54 96 05/26/16 00:49 16 05/26/16 00:00 99.0 109 16 79/54 98 05/25/16 20:00 99.6 113 16 92/53 98 I/O 05/25/16 05/25/16 05/25/16 05/26/16 05/26/16 05/26/16 07:00 15:00 23:00 07:00 15:00 23:00 Intake Total 240 ml 940 ml 0 ml 0 ml Balance 240 ml 940 ml 0 ml 0 ml Intake Oral 0 ml 0 ml IV Total 240 ml 500 ml Tube Feeding 240 ml Other 200 ml # Voids 2 2 1 4 # Bowel Movements 0 0 Result Diagram: 05/26/16 0550 05/26/16 0550 Imaging Last Impressions Chest X-Ray 05/10/16 0000 Signed Impressions: Service Date/Time: Tuesday, May 10, 2016 00:10 - CONCLUSION: No acute cardiopulmonary process. Demetrio Pressley MD Liver Ultrasound 04/12/16 0000 Signed Impressions: Service Date/Time: Tuesday, April 12, 2016 22:29 - CONCLUSION: 1. Solid indeterminate mass in the left lobe of the liver as well as a tiny cyst. An MRI of the abdomen with without contrast may be helpful for further assessment if felt clinically warranted. The possibility of a metastatic lesion is not excluded. 2. Cholelithiasis. 3. Bilateral pleural effusions are suspected sonographically. Chau Ward MD Chest CT 04/11/16 0000 Signed Impressions: Service Date/Time: Monday, April 11, 2016 14:09 - CONCLUSION: 1. Multiple small scattered noncalcified pulmonary nodules which are nonspecific but are of concern for early metastatic disease. 2. The known large tumor mass in the right side of the face and neck is partially visualized with destructive change involving the right side of the mandible. This extends into the right supraclavicular region. Please see soft tissue neck CT for further details. 3. Low attenuation lesion in the left lobe of the liver again noted. Holland Villegas MD Abdomen/Pelvis CT 04/11/16 0000 Signed Impressions: Service Date/Time: Monday, April 11, 2016 14:09 - CONCLUSION: 1. 1.4 cm low-attenuation lesion left lobe of the liver of concern for a metastasis. There is a smaller more cystic appearing structure in the right lobe. 2. The remainder of the study is unremarkable except for a PEG tube in the stomach. Holland Villegas MD Upper Extremity Ultrasound 04/08/16 0000 Signed Impressions: Service Date/Time: Friday, April 08, 2016 13:04 - CONCLUSION: No thrombus. Deshawn Michele MD Neck CT 04/02/16 0000 Signed Impressions: Service Date/Time: Saturday, April 02, 2016 11:54 - CONCLUSION: Very large heterogeneous soft tissue mass along the right side of the face with gross destruction involving most of the right mandible. The mass contains amorphous calcifications and appears to involve the right sternocleidomastoid muscle. The mass appears to extend into the oral cavity with diffuse enlargement of the right tonsillar pillar. Neoplastic disease in the primary consideration. Niall Corrales MD Multiplanar Reconstruction 04/02/16 0000 Signed Impressions: Service Date/Time: Saturday, April 02, 2016 11:54 - CONCLUSION: 3-D reconstructive images demonstrating destruction involving most the right side of the mandible. Niall Corrales MD Head CT 04/02/16 0000 Signed Impressions: Service Date/Time: Saturday, April 02, 2016 11:54 - CONCLUSION: 1. Unremarkable CT scan of the brain 2. Large abnormal soft tissue mass with calcifications along the right side of the face. Niall Corrales MD Objective Remarks Gen NAD HEENT: large ulcerating exophytic mass on the right side of the face. mouth is partial shut. Lips cracked. CV RRR. no r/m/g Resp CTA B/L Abd soft NDNT EXT: no edema Procedures central line placement PEG placement bone biopsy teeth extraction Medications and IVs Current Medications Medications (Trade) Dose Ordered Sig/Sara Route Start Time Stop Time Status Last Admin (Zofran Inj) 4 mg Q6H PRN IV PUSH 04/02/16 01:45 05/17/16 09:01 (NS Flush) 2 ml UNSCH PRN IVF 04/02/16 08:15 05/22/16 06:26 (NS Flush) 2 ml BID IVF 04/02/16 09:00 05/26/16 09:00 (Benadryl) 25 mg Q6H PRN PO 04/02/16 09:00 05/17/16 11:32 (Lovenox Inj) 30 mg Q24H SQ 04/04/16 15:30 05/26/16 16:44 (Free Water) VOLUME: 200 ML Q6HR G-TUBE 04/04/16 08:45 05/26/16 12:00 (Tylenol) 650 mg Q4H PRN PO 04/07/16 01:45 05/21/16 17:02 (Morphine Inj) 2 mg Q2HR PRN IV PUSH 04/08/16 09:00 05/17/16 15:00 (Hycet 325-7.5 Mg Liq) 15 ml Q3HR PRN PO 04/08/16 14:45 05/25/16 23:27 (Colace Liq) 100 mg BID PRN GT 04/15/16 12:15 05/11/16 05:08 (Lactulose Liq) 30 ml TID PRN G-TUBE 04/15/16 12:15 (Dulcolax Supp) 10 mg DAILY PRN MN 04/15/16 12:15 (Milk Of Magnesia Liq) 30 ml Q6H PRN GT 04/15/16 12:15 (Chapstick) 1 applic UNSCH PRN TOP 04/17/16 10:00 04/18/16 00:01 (Mag-Ox) 800 mg Q12HR GT 04/17/16 21:00 05/26/16 11:16 (Reglan Liq) 10 mg ACHS G-TUBE 04/19/16 16:00 05/26/16 16:44 (K-Phos) 500 mg Q12HR PO 04/24/16 12:00 05/26/16 11:15 (Lactinex) 1 tab TID PO 04/24/16 18:00 05/26/16 16:41 (Benadryl Inj) 25 mg Q4H PRN IV 04/26/16 19:00 05/26/16 11:43 (Diflucan) 200 mg DAILY PO 05/01/16 15:45 05/26/16 11:16 (Flagyl) 500 mg Q8HR PO 05/01/16 22:00 05/26/16 14:38 Potassium Bicarb/ Potassium Chloride 40 meq 40 meq Q12HR NG 05/04/16 22:00 05/26/16 11:16 (Unasyn Inj/NS Inj) 100 ml @ 200 mls/hr Q6H IV 05/10/16 22:00 05/26/16 16:39 (Magic Mouthwash Adult Liq) 5 ml QID PRN SWISH-SWAL 05/21/16 11:00 (Miralax) 17 gm DAILY PRN G-TUBE 05/21/16 11:00 Silver Sulfadiazine 1 applic 1 applic Q12HR TOPICAL 05/21/16 12:00 05/26/16 11:18 Sodium Chloride 1,000 ml @ 100 mls/hr Q10H IV 05/24/16 08:45 Hold 05/25/16 14:38 Sodium Chloride 250 ml @ 15 mls/hr ONCE ONCE IV 05/26/16 09:15 05/27/16 01:54 (NS 250 ml Inj) 250 ml @ 0 mls/hr ONCE@1600 IV 05/26/16 16:00 05/26/16 23:59 05/26/16 16:44 Urinary Catheter: No Vascular Central Line Catheter: No A/P Problem List: (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 Status: Acute (2) Stomatitis and mucositis ICD Code: K12.1 Status: Acute (3) Sepsis ICD Code: A41.9 Status: Resolved (4) Leukocytosis ICD Code: D72.829 Status: Resolved (5) Sinus tachycardia ICD Code: R00.0 Status: Resolved (6) Hyponatremia ICD Code: E87.1 Status: Acute (7) Hypercalcemia of malignancy ICD Code: E83.52 Status: Resolved (8) 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: Chronic (9) Electrolyte abnormality ICD Code: E87.8 Status: Resolved (10) Severe protein-calorie malnutrition ICD Code: E43 Status: Acute (11) Constipation ICD Code: K59.00 Status: Resolved (12) DNR no code (do not resuscitate) ICD Code: Z66 Status: Acute (13) Palliative care patient ICD Code: Z51.5 Status: Acute (14) Hypomagnesemia ICD Code: E83.42 Status: Resolved (15) Nausea ICD Code: R11.0 Status: Resolved (16) Radiation-induced dermatitis ICD Code: L58.9 Status: Acute (17) 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: Acute Plan: Hemoglobin trending down. Patient was sent 0.6 however very tired. I agree with transfusion of 1 unit packed red blood cells ordered by Sirisha Cotton. Hemoglobin and transfuse for hemoglobin less than 7 or symptomatic anemia. (18) Hypotension ICD Code: I95.9 Status: Acute Plan: Patient with low BP. I will order an infusion of 1 L normal saline bolus. Continue to monitor vital signs. Assessment and Plan (1) Squamous cell carcinoma of oropharynx Plan: Squamous Cell Carcinoma of Oropharynx, CT of the face showed very large heterogeneous soft tissue mass along the right side of the face with gross destruction involving most of the right mandible. Probable Metastatic Disease to the Abdomen and Lung/Liver. 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 continue Radiation therapy and Chemotherapy as per title specialist. and Radiation specialist following. 05/26 As per medical oncology, resection not possible at this moment. Patient has less of chemotherapy today and radiation therapy next week. (2) Stomatitis and mucositis Plan: Concern for radiation dermatitis. Radiation and chemotherapy held last week. Radiation therapy was resumed this week and chemotherapy on 05/19/16. (3) Sepsis Plan: Patient was having low-grade fevers which have not come back since . Possibly right facial wound and central line suspected to be the source. Central line was discontinued. 1 bottle blood cultures with Pseudomonas stutzeri. Patient was treated with IV Zosyn for total of 2 weeks N date 04/20/16. Repeat blood cultures on 26/07, 04/19,05/04, 05/10 all negative x5. Patient was being treated with Levaquin, Flagyl and fluconazole orally. Levaquin was discontinued. The patient is currently being treated with IV Unasyn, oral Flagyl. sp oral fluconazole treatment. The prior exam handled by attending physician who does not want ID specialist on the case. (4) Leukocytosis Plan: Leukocytosis likely secondary to sepsis as above. Leukocytosis resolved. Continue to monitor CBC with differential. 05/25 WBC within normal range. (5) Sinus tachycardia Plan: TSH within normal limits. Continue to monitor vital signs. Possibly compensatory to anemia. Patient status post infusion of packed red blood cells after hemoglobin dropped to 6.5. However patient still with sinus tachycardia. Continue to monitor vital signs. (6) Hyponatremia Plan: Suspected SIADH. Patient looks euvolemic. 05/18 Initially free water was decreased with temporary correction of hyponatremia. sodium now trending down to 132. Check serum and urine osmolality due to worsening hyponatremia. 05/19 sodium much improved and trending up, today 136. Urine and serum aspartate consistent with SIADH which is likely secondary to nausea. Continue to monitor BMP and sodium. Free water was discontinued. 05/25 Sodium trending down. Patient is on IV fluids which I will stop for now. If bp gets low then might bennefit from IV fluid boluses instead of continuos infusion. 05/26 sodium stable at 134. (7) Hypercalcemia of malignancy Plan: Status post treatment with Aredia. Now resolved. Continue to monitor. (8) Anemia due to chemotherapy Plan: Status post PRBC transfusion. Hemoglobin stable at 8.9. Continue to monitor H&H. Transfuse to keep hemoglobin more than 7 . 05/16 hemoglobin today down to 6.5. Likely secondary to chemotherapy. Improved after transfusion of 2 units of packed red blood cells. Hemoglobin now 8.6 and stable for several days after the fusion. 05/25 hemoglobin stable at 8.2. Continue to monitor CBC periodically. (9) Electrolyte abnormality Plan: Patient with hypokalemia, hypomagnesemia and hypophosphatemia likely from nutritional deficiency due to decreased by mouth intake. All have been replaced and corrected - continue to monitor electrolytes. (10) Severe protein-calorie malnutrition Plan: As evidenced by a more low albumin of 1.5, patient not eating much due to location of cancer. Registered dietitian consulting. Follow-up recommendations. Patient currently on Jevity 1.5 with 6 boluses daily which the patient has been tolerating. However the patient has not been gaining weight and dietitian recommends switching to feeding formulas to TwoCal HN. Changes be made. Schedule of bolus feeding changed on 05/19 to better fit the patient's radiotherapy schedule and patient would be off the floor and miss tube feedings. (11) Constipation Plan: Seems to be stable. On Senna, colace and Miralax daily. (12) DNR no code (do not resuscitate) Plan: Patient has DO NOT RESUSCITATE status (13) Palliative care patient Plan: Patient being followed by palliative care. GI prophylaxis: Lactinex, will add PPI. Prophylaxis: SCDs, continue Lovenox subcutaneously. Discharge Planning Most likely a long hospital stay due to severity of cancer. Continue to monitor in the oncology floor, and Kelsey chemotherapy and possible debulking surgery by general surgery. Problem Qualifiers (1) Hypotension: Qualified Code: I95.9 - Hypotension, unspecified hypotension type Nirav Preston MD May 26, 2016 17:57
[2016-05-27] VITALS: BP 97/64; PULSE 86; RESP 18; TEMP 96.2; O2SAT 98
[2016-05-27 04:00] VITALS: BP 116/65; PULSE 64; RESP 18; TEMP 96.8; O2SAT 98
[2016-05-27] MEDS: AMPICILLIN-SULBACTAM INJ 3 GM in SODIUM CHLORIDE 0.9% INJ 100 ML IV SCH ×4 (05:33→23:22)
[2016-05-27] MEDS: metroNIDAZOLE 500 MG TAB PO SCH ×3 (06:23→21:15)
[2016-05-27] MEDS: METOCLOPRAMIDE HCL SYRUP 10 MG/10 ML UDC G-TUBE SCH ×4 (06:23→21:15)
[2016-05-27] MEDS: FREE WATER G-TUBE SCH ×3 (06:35→17:06)
[2016-05-27 07:13] LABS: HEMATOCRIT 27.7 % (39.0-51.0); MEAN CELL VOLUME 86.7 FL (80.0-100.0); MEAN CORPUSCULAR HEMOGLOBIN 29.4 PG (27.0-34.0); MEAN CORPUSCULAR HGB CONC 33.9 % (32.0-36.0); PLATELET COUNT 579 TH/MM3 (150-450); RED BLOOD COUNT 3.19 MIL/MM3 (4.50-5.90); REVIEW FLAG FINAL; WHITE BLOOD COUNT 6.3 TH/MM3 (4.0-11.0)
[2016-05-27 07:41] LABS: BICARBONATE 27.7 MEQ/L (21.0-32.0); MAGNESIUM 1.9 MG/DL (1.5-2.5); POTASSIUM 4.1 MEQ/L (3.5-5.1)
[2016-05-27 08:00] VITALS: BP 101/61; PULSE 88; RESP 20; TEMP 97.2; O2SAT 98
[2016-05-27] MEDS: SILVER SULFADIAZINE 1% CR 50 GM JAR TOPICAL SCH ×2 (09:00→21:15)
--- NOTE | 2016-05-27 09:17 | HHI.PR ---
Subjective Remarks s/p biopsy mass right face/extraction of mandibular teeth, SCCA chemo. finished radiation under progress pt seen and examined, brother/nurse at bedside no complaints Objective Vital Signs Date Time Temp Pulse Resp B/P Pulse Ox O2 Delivery O2 Flow Rate FiO2 05/27/16 04:00 96.8 64 18 116/65 98 05/27/16 00:00 96.2 86 18 97/64 98 05/26/16 20:00 97.5 89 19 107/57 97 05/26/16 19:45 99.9 90 18 109/56 05/26/16 16:00 96.3 97 20 88/56 98 05/26/16 13:18 98.0 103 18 92/52 05/26/16 12:00 98 22 99/54 98 I/O 05/26/16 05/26/16 05/26/16 05/27/16 05/27/16 05/27/16 07:00 15:00 23:00 07:00 15:00 23:00 Intake Total 0 ml Balance 0 ml Intake Oral 0 ml # Voids 1 4 2 1 # Bowel Movements 0 Result Diagram: 05/27/16 0600 05/27/16 0600 Procedures central line placement PEG placement bone biopsy teeth extraction Radiation therapy Chemotherapy Objective Remarks right facial dressing in place right face wound/lesion area smaller in size radiation inducted soft tissues effects notes wound hemostatic intraorally - extraction sites stable, decrease in wound/lesion size Assessment and Plan Assessment and Plan mass right face/mandible region s/p extraction of teeth/biopsy s/p peg tube/central line invasive squamous cell carcinoma keratinizing Debridement surgery cancelled - d/w Dr. Garcia Rad. Onc; was informed due to continuing/high radiation dose, high risk of bleeding from lesion may not be controllable. will wait for chemo/rad tx to finish and reevaluate at a later date d/w pt/brother using engineer exhauster service christina #[id number] discussed the rationale for waiting for debridement/reconstruction eval, risks of severe bleeding surgical treatment options, and my conversation with dr jordan all questions and concerns answered continue supportive care Joseph Macias DMD May 27, 2016 09:17
[2016-05-27] MEDS: LACTOBACILLUS ACIDOPHILUS TAB PO SCH ×3 (10:56→16:44)
[2016-05-27] MEDS: POTASSIUM PHOSPHATE MONOBASIC 500 MG TAB PO SCH ×2 (10:56→21:15)
[2016-05-27] MEDS: FLUCONAZOLE 200 MG TAB PO SCH (10:56)
[2016-05-27] MEDS: MAGNESIUM OXIDE 400 MG TAB GT SCH ×2 (10:56→21:15)
[2016-05-27] MEDS: POTASSIUM CHLORIDE 25 MEQ EFFERVESCENT TAB NG SCH ×2 (10:57→21:15)
[2016-05-27] MEDS: SODIUM CHLORIDE 0.9% FLUSH 5 ML FLUSH IVF SCH ×2 (10:57→23:22)
[2016-05-27 12:00] VITALS: BP 93/61; PULSE 89; RESP 20; TEMP 96.8; O2SAT 98
--- NOTE | 2016-05-27 12:24 | HHI.PR ---
Subjective Subjective Notes doing well, no problems per brother. Objective Vitals/I&O Vital Signs Date Time Temp Pulse Resp B/P Pulse Ox O2 Delivery O2 Flow Rate FiO2 05/27/16 08:00 97.2 88 20 101/61 98 Labs Laboratory Tests Test 05/27/16 06:00 White Blood Count 6.3 Red Blood Count 3.19 Hemoglobin 9.4 Hematocrit 27.7 Mean Corpuscular Volume 86.7 Mean Corpuscular Hemoglobin 29.4 Mean Corpuscular Hemoglobin 33.9 Concent Red Cell Distribution Width 15.0 Platelet Count 579 Mean Platelet Volume 6.5 Sodium Level 137 Potassium Level 4.1 Chloride Level 103 Carbon Dioxide Level 27.7 Anion Gap 6 Blood Urea Nitrogen 12 Creatinine 0.28 Estimat Glomerular Filtration 367 Rate Random Glucose 131 Calcium Level 9.2 Phosphorus Level 3.3 Magnesium Level 1.9 Cardiovascular: Regular Lungs: Clear Abdomen: Non-distended Narrative Exam facial dressing in place, clean and dry. A/P Assessment and Plan 35 year old male with large oropharyngeal cancer -Continue Chemo/Radiation per Hematology -Will touch base with OMFS about timing of surgery - Dr Lezama and Christofer recommend waiting 8 weeks for total effect of chemo and radiation to resolve. -s/p PEG placement -s/p biopsy of mass -Tolerating bolus feedings - Will DW social work about what to do while we wait for surgery. Should be about 6-8 weeks. I certify and attest that I personally examined this patient with Daya who documented our visit in the EMR and entered orders under my direct supervision. I reviewed the care plan with the nursing staff and family if present. Juan Ayala MD, FACS, MD May 27, 2016 12:24
--- NOTE | 2016-05-27 15:39 | HHI.PR ---
Subjective Remarks Patient denies cp/sob denies cough no diarrhea sbp in the 90's brother at bedside Objective Vitals Vital Signs Date Time Temp Pulse Resp B/P Pulse Ox O2 Delivery O2 Flow Rate FiO2 05/27/16 12:00 96.8 89 20 93/61 98 05/27/16 08:00 97.2 88 20 101/61 98 05/27/16 04:00 96.8 64 18 116/65 98 05/27/16 00:00 96.2 86 18 97/64 98 05/26/16 20:00 97.5 89 19 107/57 97 05/26/16 19:45 99.9 90 18 109/56 05/26/16 16:00 96.3 97 20 88/56 98 I/O 05/26/16 05/26/16 05/26/16 05/27/16 05/27/16 05/27/16 07:00 15:00 23:00 07:00 15:00 23:00 Intake Total 0 ml 0 ml Balance 0 ml 0 ml Intake Oral 0 ml 0 ml # Voids 1 4 2 1 1 # Bowel Movements 0 1 Result Diagram: 05/27/16 0600 05/27/16 0600 Imaging Last Impressions Chest X-Ray 05/10/16 0000 Signed Impressions: Service Date/Time: Tuesday, May 10, 2016 00:10 - CONCLUSION: No acute cardiopulmonary process. Demetrio Pressley MD Liver Ultrasound 04/12/16 0000 Signed Impressions: Service Date/Time: Tuesday, April 12, 2016 22:29 - CONCLUSION: 1. Solid indeterminate mass in the left lobe of the liver as well as a tiny cyst. An MRI of the abdomen with without contrast may be helpful for further assessment if felt clinically warranted. The possibility of a metastatic lesion is not excluded. 2. Cholelithiasis. 3. Bilateral pleural effusions are suspected sonographically. Chau Ward MD Chest CT 04/11/16 0000 Signed Impressions: Service Date/Time: Monday, April 11, 2016 14:09 - CONCLUSION: 1. Multiple small scattered noncalcified pulmonary nodules which are nonspecific but are of concern for early metastatic disease. 2. The known large tumor mass in the right side of the face and neck is partially visualized with destructive change involving the right side of the mandible. This extends into the right supraclavicular region. Please see soft tissue neck CT for further details. 3. Low attenuation lesion in the left lobe of the liver again noted. Holland Villegas MD Abdomen/Pelvis CT 04/11/16 Signed Impressions: Service Date/Time: Monday, April 11, 2016 14:09 - CONCLUSION: 1. 1.4 cm low-attenuation lesion left lobe of the liver of concern for a metastasis. There is a smaller more cystic appearing structure in the right lobe. 2. The remainder of the study is unremarkable except for a PEG tube in the stomach. Holland Villegas MD Upper Extremity Ultrasound 04/08/16 0000 Signed Impressions: Service Date/Time: Friday, April 08, 2016 13:04 - CONCLUSION: No thrombus. Deshawn Michele MD Neck CT 04/02/16 0000 Signed Impressions: Service Date/Time: Saturday, April 02, 2016 11:54 - CONCLUSION: Very large heterogeneous soft tissue mass along the right side of the face with gross destruction involving most of the right mandible. The mass contains amorphous calcifications and appears to involve the right sternocleidomastoid muscle. The mass appears to extend into the oral cavity with diffuse enlargement of the right tonsillar pillar. Neoplastic disease in the primary consideration. Niall Corrales MD Multiplanar Reconstruction 04/02/16 Signed Impressions: Service Date/Time: Saturday, April 02, 2016 11:54 - CONCLUSION: 3-D reconstructive images demonstrating destruction involving most the right side of the mandible. Niall Corrales MD Head CT 04/02/16 0000 Signed Impressions: Service Date/Time: Saturday, April 02, 2016 11:54 - CONCLUSION: 1. Unremarkable CT scan of the brain 2. Large abnormal soft tissue mass with calcifications along the right side of the face. Niall Corrales MD Objective Remarks Gen NAD HEENT: large ulcerating exophytic mass on the right side of the face. mouth is partial shut. Lips cracked. CV RRR. no r/m/g Resp CTA B/L Abd soft NDNT EXT: no edema Procedures central line placement PEG placement bone biopsy teeth extraction Medications and IVs Current Medications Medications (Trade) Dose Ordered Sig/Sara Route Start Time Stop Time Status Last Admin (Zofran Inj) 4 mg Q6H PRN IV PUSH 04/02/16 01:45 05/17/16 09:01 (NS Flush) 2 ml UNSCH PRN IVF 04/02/16 08:15 05/22/16 06:26 (NS Flush) 2 ml BID IVF 04/02/16 09:00 05/27/16 10:57 (Benadryl) 25 mg Q6H PRN PO 04/02/16 09:00 05/17/16 11:32 (Lovenox Inj) 30 mg Q24H SQ 04/04/16 15:30 05/26/16 16:44 (Free Water) VOLUME: 200 ML Q6HR G-TUBE 04/04/16 08:45 05/27/16 10:57 (Tylenol) 650 mg Q4H PRN PO 04/07/16 01:45 05/21/16 17:02 (Morphine Inj) 2 mg Q2HR PRN IV PUSH 04/08/16 09:00 05/17/16 15:00 (Hycet 325-7.5 Mg Liq) 15 ml Q3HR PRN PO 04/08/16 14:45 05/26/16 21:13 (Colace Liq) 100 mg BID PRN GT 04/15/16 12:15 05/11/16 05:08 (Lactulose Liq) 30 ml TID PRN G-TUBE 04/15/16 12:15 (Dulcolax Supp) 10 mg DAILY PRN VT 04/15/16 12:15 (Milk Of Magnesia Liq) 30 ml Q6H PRN GT 04/15/16 12:15 (Chapstick) 1 applic UNSCH PRN TOP 04/17/16 10:00 04/18/16 00:01 (Mag-Ox) 800 mg Q12HR GT 04/17/16 21:00 05/27/16 10:56 (Reglan Liq) 10 mg ACHS G-TUBE 04/19/16 16:00 05/27/16 10:57 (K-Phos) 500 mg Q12HR PO 04/24/16 12:00 05/27/16 10:56 (Lactinex) 1 tab TID PO 04/24/16 18:00 05/27/16 13:42 (Benadryl Inj) 25 mg Q4H PRN IV 04/26/16 19:00 05/26/16 11:43 (Diflucan) 200 mg DAILY PO 05/01/16 15:45 05/27/16 10:56 (Flagyl) 500 mg Q8HR PO 05/01/16 22:00 05/27/16 13:43 Potassium Bicarb/ Potassium Chloride 40 meq 40 meq Q12HR NG 05/04/16 22:00 05/27/16 10:57 (Unasyn Inj/NS Inj) 100 ml @ 200 mls/hr Q6H IV 05/10/16 22:00 05/27/16 10:57 (Magic Mouthwash Adult Liq) 5 ml QID PRN SWISH-SWAL 05/21/16 11:00 (Miralax) 17 gm DAILY PRN G-TUBE 05/21/16 11:00 Silver Sulfadiazine 1 applic 1 applic Q12HR TOPICAL 05/21/16 12:00 05/26/16 22:29 (NS 1000 ml Inj) 1,000 ml @ 100 mls/hr Q10H IV 05/24/16 08:45 Hold 05/25/16 14:38 Urinary Catheter: No Vascular Central Line Catheter: No A/P Problem List: (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 Status: Acute (2) Stomatitis and mucositis ICD Code: K12.1 Status: Acute (3) Sepsis ICD Code: A41.9 Status: Resolved (4) Leukocytosis ICD Code: D72.829 Status: Resolved (5) Sinus tachycardia ICD Code: R00.0 Status: Resolved (6) Hyponatremia ICD Code: E87.1 Status: Acute (7) Hypercalcemia of malignancy ICD Code: E83.52 Status: Resolved (8) 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: Chronic (9) Electrolyte abnormality ICD Code: E87.8 Status: Resolved (10) Severe protein-calorie malnutrition ICD Code: E43 Status: Acute (11) Constipation ICD Code: K59.00 Status: Resolved (12) DNR no code (do not resuscitate) ICD Code: Z66 Status: Acute (13) Palliative care patient ICD Code: Z51.5 Status: Acute (14) Hypomagnesemia ICD Code: E83.42 Status: Resolved (15) Nausea ICD Code: R11.0 Status: Resolved (16) Radiation-induced dermatitis ICD Code: L58.9 Status: Acute (17) 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: Acute (18) Hypotension ICD Code: I95.9 Status: Acute Assessment and Plan (1) Squamous cell carcinoma of oropharynx Plan: Squamous Cell Carcinoma of Oropharynx, CT of the face showed very large heterogeneous soft tissue mass along the right side of the face with gross destruction involving most of the right mandible. Probable Metastatic Disease to the Abdomen and Lung/Liver. 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 continue Radiation therapy and Chemotherapy as per photo lab specialist. and Radiation specialist following. 05/26 As per medical oncology, resection not possible at this moment. Patient has less of chemotherapy today and radiation therapy next week. 05/27 Debulking surgery cancelled. Risk of bleeding if surgery is done is to high. Discussed with Dr Del Rosario. As per oncology it is best to wait 12 weeks after radiation therapy and chemotherapy is done and then obtain a PET scan to see if there is any active tumor activity. Continue management as per oncology. (2) Stomatitis and mucositis Plan: Concern for radiation dermatitis. Radiation and chemotherapy held last week. Continue oral hygiene. (3) Sepsis Plan: Patient was having low-grade fevers which have not come back since . Possibly right facial wound and central line suspected to be the source. Central line was discontinued. 1 bottle blood cultures with Pseudomonas stutzeri. Patient was treated with IV Zosyn for total of 2 weeks N date 04/20/16. Repeat blood cultures on 26/07, 04/19,05/04, 05/10 all negative x5. Patient was being treated with Levaquin, Flagyl and fluconazole orally. Levaquin was discontinued. The patient is currently being treated with IV Unasyn, oral Flagyl and oral fluconazole. The prior exam handled by attending physician who does not want ID specialist on the case. (4) Leukocytosis Plan: Leukocytosis likely secondary to sepsis as above. Leukocytosis resolved. Continue to monitor CBC with differential. 05/25 WBC within normal range. (5) Sinus tachycardia Plan: TSH within normal limits. Continue to monitor vital signs. Possibly compensatory to anemia. Patient status post infusion of packed red blood cells after hemoglobin dropped to 6.5. However patient still with sinus tachycardia. Continue to monitor vital signs. 05/27 Sinus tachycardia now resolved. (6) Hyponatremia Plan: Suspected SIADH. Patient looks euvolemic. 05/18 Initially free water was decreased with temporary correction of hyponatremia. sodium now trending down to 132. Check serum and urine osmolality due to worsening hyponatremia. 05/19 sodium much improved and trending up, today 136. Urine and serum aspartate consistent with SIADH which is likely secondary to nausea. Continue to monitor BMP and sodium. Free water was discontinued. 05/25 Sodium trending down. Patient is on IV fluids which I will stop for now. If bp gets low then might bennefit from IV fluid boluses instead of continuos infusion. 05/27 Sodium now within normal range at 137. Continue to monitor BMP. (7) Hypercalcemia of malignancy Plan: Status post treatment with Aredia. Now resolved. Continue to monitor. (8) Anemia due to chemotherapy Plan: Status post PRBC transfusion. Hemoglobin stable at 8.9. Continue to monitor H&H. Transfuse to keep hemoglobin more than 7 . 05/16 hemoglobin today down to 6.5. Likely secondary to chemotherapy. Improved after transfusion of 2 units of packed red blood cells. Hemoglobin now 8.6 and stable for several days after the fusion. 05/25 hemoglobin stable at 8.2. Continue to monitor CBC periodically. (9) Electrolyte abnormality Plan: Patient with hypokalemia, hypomagnesemia and hypophosphatemia likely from nutritional deficiency due to decreased by mouth intake. All have been replaced and corrected - continue to monitor electrolytes. (10) Severe protein-calorie malnutrition Plan: As evidenced by a more low albumin of 1.5, patient not eating much due to location of cancer. Registered dietitian consulting. Follow-up recommendations. Patient currently on Jevity 1.5 with 6 boluses daily which the patient has been tolerating. However the patient has not been gaining weight and dietitian recommends switching to feeding formulas to [facility]. Changes be made. Schedule of bolus feeding changed on 05/19 to better fit the patient's radiotherapy schedule and patient would be off the floor and miss tube feedings. (11) Constipation Plan: Seems to be stable. On Senna, colace and Miralax daily. (12) DNR no code (do not resuscitate) Plan: Patient has DO NOT RESUSCITATE status (13) Palliative care patient Plan: Patient being followed by palliative care. GI prophylaxis: Lactinex, will add PPI. Prophylaxis: SCDs, continue Lovenox subcutaneously. Discharge Planning Most likely a long hospital stay due to severity of cancer. Continue to monitor in the oncology floor. Problem Qualifiers (1) Hypotension: Qualified Code: I95.9 - Hypotension, unspecified hypotension type Nirav Preston MD May 27, 2016 15:38
[2016-05-27 16:00] VITALS: BP 91/58; PULSE 82; RESP 18; TEMP 97.6; O2SAT 95
[2016-05-27] MEDS: ENOXAPARIN SODIUM 30 MG/0.3 ML SYRINGE SQ SCH (16:45)
[2016-05-27] MEDS: ACETAMINOPHEN 325MG/HYDROcodone 7.5MG/15ML UDC PO PRN (19:33)
[2016-05-27 20:00] VITALS: BP 98/53; PULSE 84; RESP 19; TEMP 97; O2SAT 96
[2016-05-28] VITALS: BP 99/54; PULSE 86; RESP 18; TEMP 97.4; O2SAT 97
[2016-05-28] MEDS: AMPICILLIN-SULBACTAM INJ 3 GM in SODIUM CHLORIDE 0.9% INJ 100 ML IV SCH ×4 (03:52→22:28)
[2016-05-28 04:00] VITALS: BP 102/57; PULSE 81; RESP 19; TEMP 96.5; O2SAT 99
[2016-05-28] MEDS: metroNIDAZOLE 500 MG TAB PO SCH ×3 (05:44→22:30)
[2016-05-28] MEDS: METOCLOPRAMIDE HCL SYRUP 10 MG/10 ML UDC G-TUBE SCH ×4 (05:44→22:29)
[2016-05-28] MEDS: FREE WATER G-TUBE SCH ×4 (05:59→17:40)
[2016-05-28 07:58] LABS: HEMATOCRIT 29.4 % (39.0-51.0); MEAN CORPUSCULAR HEMOGLOBIN 29.6 PG (27.0-34.0); MEAN CORPUSCULAR HGB CONC 33.6 % (32.0-36.0); PLATELET COUNT 525 TH/MM3 (150-450); RED BLOOD COUNT 3.35 MIL/MM3 (4.50-5.90); RED CELL DISTRIBUTION WIDTH 15.2 % (11.6-17.2); REVIEW FLAG FINAL; WHITE BLOOD COUNT 9.3 TH/MM3 (4.0-11.0)
[2016-05-28 08:07] LABS: BICARBONATE 27.1 MEQ/L (21.0-32.0); POTASSIUM 3.6 MEQ/L (3.5-5.1)
[2016-05-28 08:30] VITALS: BP 96/53; PULSE 92; TEMP 95; O2SAT 97
[2016-05-28] MEDS: POTASSIUM PHOSPHATE MONOBASIC 500 MG TAB PO SCH ×2 (10:33→22:28)
[2016-05-28] MEDS: FLUCONAZOLE 200 MG TAB PO SCH (10:33)
[2016-05-28] MEDS: LACTOBACILLUS ACIDOPHILUS TAB PO SCH ×3 (10:33→18:00)
[2016-05-28] MEDS: MAGNESIUM OXIDE 400 MG TAB GT SCH ×2 (10:33→22:29)
[2016-05-28] MEDS: POTASSIUM CHLORIDE 25 MEQ EFFERVESCENT TAB NG SCH ×2 (10:33→22:30)
[2016-05-28] MEDS: SODIUM CHLORIDE 0.9% FLUSH 5 ML FLUSH IVF SCH ×2 (10:35→22:28)
[2016-05-28] MEDS: SILVER SULFADIAZINE 1% CR 50 GM JAR TOPICAL SCH ×2 (10:35→22:28)
[2016-05-28] MEDS: ACETAMINOPHEN 325MG/HYDROcodone 7.5MG/15ML UDC PO PRN ×2 (10:50→22:29)
--- NOTE | 2016-05-28 11:07 | HHI.PR ---
Subjective Remarks bp borderline low patient denies cp/sob, dizziness afebrile Objective Vitals Vital Signs Date Time Temp Pulse Resp B/P Pulse Ox O2 Delivery O2 Flow Rate FiO2 05/28/16 08:30 95.0 92 96/53 97 05/28/16 04:00 96.5 81 19 102/57 99 05/28/16 00:00 97.4 86 18 99/54 97 05/27/16 20:00 97.0 84 19 98/53 96 05/27/16 16:00 97.6 82 18 91/58 95 05/27/16 12:00 96.8 89 20 93/61 98 I/O 05/27/16 05/27/16 05/27/16 05/28/16 05/28/16 05/28/16 07:00 15:00 23:00 07:00 15:00 23:00 Intake Total 0 ml 440 ml Balance 0 ml 440 ml Intake Oral 0 ml Tube Feeding 240 ml Other 200 ml # Voids 1 1 2 1 # Bowel Movements 1 Result Diagram: 05/28/1657 05/28/16656 Objective Remarks Gen NAD HEENT: large ulcerating exophytic mass on the right side of the face. mouth is partial shut. Lips cracked. CV RRR. no r/m/g Resp CTA B/L Abd soft NDNT EXT: no edema Procedures central line placement PEG placement bone biopsy teeth extraction Medications and IVs Current Medications Medications (Trade) Dose Ordered Sig/Sara Route Start Time Stop Time Status Last Admin (Zofran Inj) 4 mg Q6H PRN IV PUSH 04/02/16 01:45 05/17/16 09:01 (NS Flush) 2 ml UNSCH PRN IVF 04/02/16 08:15 05/22/16 06:26 (NS Flush) 2 ml BID IVF 04/02/16 09:00 05/28/16 10:35 (Benadryl) 25 mg Q6H PRN PO 04/02/16 09:00 05/17/16 11:32 (Lovenox Inj) 30 mg Q24H SQ 04/04/16 15:30 05/27/16 16:45 (Free Water) VOLUME: 200 ML Q6HR G-TUBE 04/04/16 08:45 05/28/16 10:36 (Tylenol) 650 mg Q4H PRN PO 04/07/16 01:45 05/21/16 17:02 (Morphine Inj) 2 mg Q2HR PRN IV PUSH 04/08/16 09:00 05/17/16 15:00 (Hycet 325-7.5 Mg Liq) 15 ml Q3HR PRN PO 04/08/16 14:45 05/28/16 10:50 (Colace Liq) 100 mg BID PRN GT 04/15/16 12:15 05/11/16 05:08 (Lactulose Liq) 30 ml TID PRN G-TUBE 04/15/16 12:15 (Dulcolax Supp) 10 mg DAILY PRN CO 04/15/16 12:15 (Milk Of Magnesia Liq) 30 ml Q6H PRN GT 04/15/16 12:15 (Chapstick) 1 applic UNSCH PRN TOP 04/17/16 10:00 04/18/16 00:01 (Mag-Ox) 800 mg Q12HR GT 04/17/16 21:00 05/28/16 10:33 (Reglan Liq) 10 mg ACHS G-TUBE 04/19/16 16:00 05/28/16 10:36 (K-Phos) 500 mg Q12HR PO 04/24/16 12:00 05/28/16 10:33 (Lactinex) 1 tab TID PO 04/24/16 18:00 05/28/16 10:33 (Benadryl Inj) 25 mg Q4H PRN IV 04/26/16 19:00 05/26/16 11:43 (Diflucan) 200 mg DAILY PO 05/01/16 15:45 05/28/16 10:33 (Flagyl) 500 mg Q8HR PO 05/01/16 22:00 05/28/16 05:44 Potassium Bicarb/ Potassium Chloride 40 meq 40 meq Q12HR NG 05/04/16 22:00 05/28/16 10:33 (Unasyn Inj/NS Inj) 100 ml @ 200 mls/hr Q6H IV 05/10/16 22:00 05/28/16 10:32 (Magic Mouthwash Adult Liq) 5 ml QID PRN SWISH-SWAL 05/21/16 11:00 (Miralax) 17 gm DAILY PRN G-TUBE 05/21/16 11:00 Silver Sulfadiazine 1 applic 1 applic Q12HR TOPICAL 05/21/16 12:00 05/28/16 10:35 (NS 1000 ml Inj) 1,000 ml @ 100 mls/hr Q10H IV 05/24/16 08:45 Hold 05/25/16 14:38 A/P Problem List: (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 Status: Acute (2) Stomatitis and mucositis ICD Code: K12.1 Status: Acute (3) Sepsis ICD Code: A41.9 Status: Resolved (4) Leukocytosis ICD Code: D72.829 Status: Resolved (5) Sinus tachycardia ICD Code: R00.0 Status: Resolved (6) Hyponatremia ICD Code: E87.1 Status: Acute (7) Hypercalcemia of malignancy ICD Code: E83.52 Status: Resolved (8) 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: Chronic (9) Electrolyte abnormality ICD Code: E87.8 Status: Resolved (10) Severe protein-calorie malnutrition ICD Code: E43 Status: Acute (11) Constipation ICD Code: K59.00 Status: Resolved (12) DNR no code (do not resuscitate) ICD Code: Z66 Status: Acute (13) Palliative care patient ICD Code: Z51.5 Status: Acute (14) Hypomagnesemia ICD Code: E83.42 Status: Resolved (15) Nausea ICD Code: R11.0 Status: Resolved (16) Radiation-induced dermatitis ICD Code: L58.9 Status: Acute (17) 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: Acute (18) Hypotension ICD Code: I95.9 Status: Acute Assessment and Plan (1) Squamous cell carcinoma of oropharynx Plan: Squamous Cell Carcinoma of Oropharynx, CT of the face showed very large heterogeneous soft tissue mass along the right side of the face with gross destruction involving most of the right mandible. Probable Metastatic Disease to the Abdomen and Lung/Liver. 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 continue Radiation therapy and Chemotherapy as per running specialist. and Radiation specialist following. 05/26 As per medical oncology, resection not possible at this moment. Patient has less of chemotherapy today and radiation therapy next week. Debulking surgery cancelled. Risk of bleeding if surgery is done is to high. Discussed with Dr Del Rosario. As per oncology it is best to wait 12 weeks after radiation therapy and chemotherapy is done and then obtain a PET scan to see if there is any active tumor activity. Continue management as per oncology. (2) Stomatitis and mucositis Plan: Concern for radiation dermatitis. Radiation and chemotherapy held last week. Continue oral hygiene. (3) Sepsis Plan: Patient was having low-grade fevers which have not come back since . Possibly right facial wound and central line suspected to be the source. Central line was discontinued. 1 bottle blood cultures with Pseudomonas stutzeri. Patient was treated with IV Zosyn for total of 2 weeks N date 04/20/16. Repeat blood cultures on 26/07, 04/19,05/04, 05/10 all negative x5. Patient was being treated with Levaquin, Flagyl and fluconazole orally. Levaquin was discontinued. The patient is currently being treated with IV Unasyn, oral Flagyl and oral fluconazole. The prior exam handled by attending physician who does not want ID specialist on the case. (4) Leukocytosis Plan: Leukocytosis likely secondary to sepsis as above. Leukocytosis resolved. Continue to monitor CBC with differential. 05/25 WBC within normal range. (5) Sinus tachycardia Plan: TSH within normal limits. Continue to monitor vital signs. Possibly compensatory to anemia. Patient status post infusion of packed red blood cells after hemoglobin dropped to 6.5. However patient still with sinus tachycardia. Continue to monitor vital signs. 05/27 Sinus tachycardia now resolved. (6) Hyponatremia Plan: Suspected SIADH. Patient looks euvolemic. 05/18 Initially free water was decreased with temporary correction of hyponatremia. sodium now trending down to 132. Check serum and urine osmolality due to worsening hyponatremia. 05/19 sodium much improved and trending up, today 136. Urine and serum aspartate consistent with SIADH which is likely secondary to nausea. Continue to monitor BMP and sodium. Free water was discontinued. 05/25 Sodium trending down. Patient is on IV fluids which I will stop for now. If bp gets low then might bennefit from IV fluid boluses instead of continuos infusion. 05/28 Sodium now within normal range at 137. Continue to monitor BMP. (7) Hypercalcemia of malignancy Plan: Status post treatment with Aredia. Now resolved. Continue to monitor. (8) Anemia due to chemotherapy Plan: Status post PRBC transfusion. Hemoglobin stable at 8.9. Continue to monitor H&H. Transfuse to keep hemoglobin more than 7 . 05/16 hemoglobin today down to 6.5. Likely secondary to chemotherapy. Improved after transfusion of 2 units of packed red blood cells. Hemoglobin now 8.6 and stable for several days after the fusion. 05/25 hemoglobin stable at 8.2. Continue to monitor CBC periodically. (9) Electrolyte abnormality Plan: Patient with hypokalemia, hypomagnesemia and hypophosphatemia likely from nutritional deficiency due to decreased by mouth intake. All have been replaced and corrected - continue to monitor electrolytes. (10) Severe protein-calorie malnutrition Plan: As evidenced by a more low albumin of 1.5, patient not eating much due to location of cancer. Registered dietitian consulting. Follow-up recommendations. Patient currently on Jevity 1.5 with 6 boluses daily which the patient has been tolerating. However the patient has not been gaining weight and dietitian recommends switching to feeding formulas to [employer] [facility]. Changes be made. Schedule of bolus feeding changed on 05/19 to better fit the patient's radiotherapy schedule and patient would be off the floor and miss tube feedings. (11) Constipation Plan: Seems to be stable. On Senna, colace and Miralax daily. (12) DNR no code (do not resuscitate) Plan: Patient has DO NOT RESUSCITATE status (13) Palliative care patient Plan: Patient being followed by palliative care. GI prophylaxis: Lactinex, will add PPI. Prophylaxis: SCDs, continue Lovenox subcutaneously. Discharge Planning Most likely a long hospital stay due to severity of cancer. Continue to monitor in the oncology floor. Problem Qualifiers (1) Hypotension: Qualified Code: I95.9 - Hypotension, unspecified hypotension type Nirav Preston MD May 28, 2016 11:07
[2016-05-28] MEDS: ENOXAPARIN SODIUM 30 MG/0.3 ML SYRINGE SQ SCH (15:34)
[2016-05-28 16:00] VITALS: BP 108/67; PULSE 104; RESP 16; TEMP 97; O2SAT 97
[2016-05-28 20:00] VITALS: BP 109/63; PULSE 112; RESP 22; TEMP 99.9; O2SAT 98
[2016-05-29] VITALS: BP 107/61; PULSE 115; RESP 21; TEMP 98.9; O2SAT 97
[2016-05-29 04:00] VITALS: BP 113/67; PULSE 116; RESP 22; TEMP 97.9; O2SAT 96
[2016-05-29] MEDS: AMPICILLIN-SULBACTAM INJ 3 GM in SODIUM CHLORIDE 0.9% INJ 100 ML IV SCH ×4 (04:18→22:41)
[2016-05-29] MEDS: metroNIDAZOLE 500 MG TAB PO SCH ×3 (05:19→22:41)
[2016-05-29] MEDS: FREE WATER G-TUBE SCH ×4 (05:20→23:31)
[2016-05-29] MEDS: METOCLOPRAMIDE HCL SYRUP 10 MG/10 ML UDC G-TUBE SCH ×4 (05:20→22:40)
[2016-05-29 06:26] LABS: INTERNATIONAL NORMALIZED RATIO 1.2 RATIO; PROTHROMBIN TIME - PATIENT 13.8 SEC (9.8-11.6)
[2016-05-29 06:49] LABS: ALKALINE PHOSPHATASE 106 U/L (45-117); ALT (GPT) 15 U/L (12-78); ANION GAP 8 MEQ/L (5-15); AST (GOT) 15 U/L (15-37); BICARBONATE 27.7 MEQ/L (21.0-32.0); BLOOD UREA NITROGEN 15 MG/DL (7-18); CHLORIDE 96 MEQ/L (98-107); GLOMERULAR FILTRATION RATE 275 ML/MIN (>89); MAGNESIUM 1.5 MG/DL (1.5-2.5); POTASSIUM 3.5 MEQ/L (3.5-5.1); SODIUM (NA) 132 MEQ/L (136-145); TOTAL BILIRUBIN ADULT 0.3 MG/DL (0.2-1.0)
[2016-05-29 08:00] VITALS: BP 107/63; PULSE 106; RESP 20; TEMP 96.2; O2SAT 98
[2016-05-29] MEDS: POTASSIUM CHLORIDE 25 MEQ EFFERVESCENT TAB NG SCH ×2 (09:00→22:42)
[2016-05-29] MEDS: SODIUM CHLOR 0.9% 1000 ML INJ 1,000 ML IV SCH (09:00)
[2016-05-29] MEDS: ACETAMINOPHEN 325MG/HYDROcodone 7.5MG/15ML UDC PO PRN ×2 (10:34→22:40)
[2016-05-29] MEDS: LACTOBACILLUS ACIDOPHILUS TAB PO SCH ×3 (10:34→16:47)
[2016-05-29] MEDS: MAGNESIUM OXIDE 400 MG TAB GT SCH ×2 (10:35→22:41)
[2016-05-29] MEDS: FLUCONAZOLE 200 MG TAB PO SCH (10:35)
[2016-05-29] MEDS: POTASSIUM PHOSPHATE MONOBASIC 500 MG TAB PO SCH ×2 (10:35→22:41)
[2016-05-29] MEDS: SODIUM CHLORIDE 0.9% FLUSH 5 ML FLUSH IVF SCH ×2 (10:36→21:00)
[2016-05-29] MEDS: SILVER SULFADIAZINE 1% CR 50 GM JAR TOPICAL SCH ×2 (10:38→23:20)
[2016-05-29 12:00] VITALS: BP 106/70; PULSE 110; RESP 16; TEMP 96.9; O2SAT 97
--- NOTE | 2016-05-29 15:36 | HHI.PR ---
Subjective Subjective Notes Resting in bed Cadir at bedside Objective Vitals/I&O Vital Signs Date Time Temp Pulse Resp B/P Pulse Ox O2 Delivery O2 Flow Rate FiO2 05/29/16 08:00 96.2 106 20 107/63 98 Labs Laboratory Tests Test 05/29/16 05:20 Prothrombin Time 13.8 Prothromb Time International 1.2 Ratio Sodium Level 132 Potassium Level 3.5 Chloride Level 96 Carbon Dioxide Level 27.7 Anion Gap 8 Blood Urea Nitrogen 15 Creatinine 0.36 Estimat Glomerular Filtration 275 Rate Random Glucose 106 Calcium Level 8.9 Phosphorus Level 3.3 Magnesium Level 1.5 Total Bilirubin 0.3 Aspartate Amino Transf 15 (AST/SGOT) Alanine Aminotransferase 15 (ALT/SGPT) Alkaline Phosphatase 106 Total Protein 6.0 Albumin 1.7 Triglycerides Level 94 Cardiovascular: Regular Lungs: Clear Abdomen: Non-distended, Non-tender, Other (PEG in place ) Narrative Exam Face: large RIGHT sided facial malignancy A/P Assessment and Plan 35 year old male with large oropharyngeal cancer -Finished radiation this week -Will wait a 2-3 months to debulk tumor -s/p PEG placement -s/p biopsy of mass -Tolerating bolus feedings I CERTIFY AND ATTEST THAT I PERSONALLY EXAMINED THIS PATIENT IN THEIR ROOM WITH THE INSURANCE LOSS CONTROL SURVEYOR PRESENT. MS AVILES IS DOCUMENTING OUR VISIT IN THE EMR AND ENTERED ORDERS UNDER MY DIRECT SUPERVISION. I DISCUSSED THE CARE PLAN WITH THE PATIENT AND THEIR [facility] STAFF. Brittnee Meraz MD, FACS May 29, 2016 15:36 Juan Oseguera MD Jun 03, 2016 13:44
[2016-05-29 16:39] VITALS: BP 101/61; PULSE 101; RESP 16; TEMP 96.4; O2SAT 99
[2016-05-29] MEDS: ENOXAPARIN SODIUM 30 MG/0.3 ML SYRINGE SQ SCH (16:48)
--- NOTE | 2016-05-29 17:44 | HHI.PR ---
Subjective Remarks as per brother patient very nauseous yesterday denies vomiting nausea has resolved denies cp/sob Objective Vitals Vital Signs Date Time Temp Pulse Resp B/P Pulse Ox O2 Delivery O2 Flow Rate FiO2 05/29/16 16:39 96.4 101 16 101/61 99 05/29/16 12:00 96.9 110 16 106/70 97 05/29/16 08:00 96.2 106 20 107/63 98 05/29/16 04:00 97.9 116 22 113/67 96 05/29/16 00:00 98.9 115 21 107/61 97 05/28/16 20:00 99.9 112 22 109/63 98 I/O 05/28/16 05/28/16 05/28/16 05/29/16 05/29/16 05/29/16 07:00 15:00 23:00 07:00 15:00 23:00 Intake Total 440 ml 0 ml 100 ml Balance 440 ml 0 ml 100 ml Intake Oral 0 ml 0 ml IV Total 100 ml Tube Feeding 240 ml Other 200 ml # Voids 1 1 2 1 1 Result Diagram: 05/28/16 0657 05/29/16 0520 Imaging Last Impressions Chest X-Ray 05/10/16 0000 Signed Impressions: Service Date/Time: Tuesday, May 10, 2016 00:10 - CONCLUSION: No acute cardiopulmonary process. Demetrio Pressley MD Liver Ultrasound 04/12/16 0000 Signed Impressions: Service Date/Time: Tuesday, April 12, 2016 22:29 - CONCLUSION: 1. Solid indeterminate mass in the left lobe of the liver as well as a tiny cyst. An MRI of the abdomen with without contrast may be helpful for further assessment if felt clinically warranted. The possibility of a metastatic lesion is not excluded. 2. Cholelithiasis. 3. Bilateral pleural effusions are suspected sonographically. Chau Ward MD Chest CT 04/11/16 0000 Signed Impressions: Service Date/Time: Monday, April 11, 2016 14:09 - CONCLUSION: 1. Multiple small scattered noncalcified pulmonary nodules which are nonspecific but are of concern for early metastatic disease. 2. The known large tumor mass in the right side of the face and neck is partially visualized with destructive change involving the right side of the mandible. This extends into the right supraclavicular region. Please see soft tissue neck CT for further details. 3. Low attenuation lesion in the left lobe of the liver again noted. Holland Villegas MD Abdomen/Pelvis CT 04/11/16 0000 Signed Impressions: Service Date/Time: Monday, April 11, 2016 14:09 - CONCLUSION: 1. 1.4 cm low-attenuation lesion left lobe of the liver of concern for a metastasis. There is a smaller more cystic appearing structure in the right lobe. 2. The remainder of the study is unremarkable except for a PEG tube in the stomach. Holland Villegas MD Upper Extremity Ultrasound 04/08/16 0000 Signed Impressions: Service Date/Time: Friday, April 08, 2016 13:04 - CONCLUSION: No thrombus. Deshawn Michele MD Neck CT 04/02/16 0000 Signed Impressions: Service Date/Time: Saturday, April 02, 2016 11:54 - CONCLUSION: Very large heterogeneous soft tissue mass along the right side of the face with gross destruction involving most of the right mandible. The mass contains amorphous calcifications and appears to involve the right sternocleidomastoid muscle. The mass appears to extend into the oral cavity with diffuse enlargement of the right tonsillar pillar. Neoplastic disease in the primary consideration. Niall Corrales MD Multiplanar Reconstruction 04/02/16 0000 Signed Impressions: Service Date/Time: Saturday, April 02, 2016 11:54 - CONCLUSION: 3-D reconstructive images demonstrating destruction involving most the right side of the mandible. Niall Corrales MD Head CT 04/02/16 0000 Signed Impressions: Service Date/Time: Saturday, April 02, 2016 11:54 - CONCLUSION: 1. Unremarkable CT scan of the brain 2. Large abnormal soft tissue mass with calcifications along the right side of the face. Niall Corrales MD Objective Remarks Gen NAD HEENT: large ulcerating exophytic mass on the right side of the face. mouth is partial shut. Lips cracked. CV RRR. no r/m/g Resp CTA B/L Abd soft NDNT EXT: no edema Procedures central line placement PEG placement bone biopsy teeth extraction Medications and IVs Current Medications Medications (Trade) Dose Ordered Sig/Sara Route Start Time Stop Time Status Last Admin (Zofran Inj) 4 mg Q6H PRN IV PUSH 04/02/16 01:45 05/17/16 09:01 (NS Flush) 2 ml UNSCH PRN IVF 04/02/16 08:15 05/22/16 06:26 (NS Flush) 2 ml BID IVF 04/02/16 09:00 05/29/16 10:36 (Benadryl) 25 mg Q6H PRN PO 04/02/16 09:00 05/17/16 11:32 (Lovenox Inj) 30 mg Q24H SQ 04/04/16 15:30 05/29/16 16:48 (Free Water) VOLUME: 200 ML Q6HR G-TUBE 04/04/16 08:45 05/29/16 12:00 (Tylenol) 650 mg Q4H PRN PO 04/07/16 01:45 05/21/16 17:02 (Morphine Inj) 2 mg Q2HR PRN IV PUSH 04/08/16 09:00 05/17/16 15:00 (Hycet 325-7.5 Mg Liq) 15 ml Q3HR PRN PO 04/08/16 14:45 05/29/16 10:34 (Colace Liq) 100 mg BID PRN GT 04/15/16 12:15 05/11/16 05:08 (Lactulose Liq) 30 ml TID PRN G-TUBE 04/15/16 12:15 (Dulcolax Supp) 10 mg DAILY PRN SC 04/15/16 12:15 (Milk Of Magnesia Liq) 30 ml Q6H PRN GT 04/15/16 12:15 (Chapstick) 1 applic UNSCH PRN TOP 04/17/16 10:00 04/18/16 00:01 (Mag-Ox) 800 mg Q12HR GT 04/17/16 21:00 05/29/16 10:35 (Reglan Liq) 10 mg ACHS G-TUBE 04/19/16 16:00 05/29/16 16:47 (K-Phos) 500 mg Q12HR PO 04/24/16 12:00 05/29/16 10:35 (Lactinex) 1 tab TID PO 04/24/16 18:00 05/29/16 16:47 (Benadryl Inj) 25 mg Q4H PRN IV 04/26/16 19:00 05/26/16 11:43 (Diflucan) 200 mg DAILY PO 05/01/16 15:45 05/29/16 10:35 (Flagyl) 500 mg Q8HR PO 05/01/16 22:00 05/29/16 16:47 Potassium Bicarb/ Potassium Chloride 40 meq 40 meq Q12HR NG 05/04/16 22:00 05/29/16 09:00 (Unasyn Inj/NS Inj) 100 ml @ 200 mls/hr Q6H IV 05/10/16 22:00 05/29/16 16:47 (Magic Mouthwash Adult Liq) 5 ml QID PRN SWISH-SWAL 05/21/16 11:00 (Miralax) 17 gm DAILY PRN G-TUBE 05/21/16 11:00 Silver Sulfadiazine 1 applic 1 applic Q12HR TOPICAL 05/21/16 12:00 05/29/16 10:38 Sodium Chloride 1,000 ml @ 100 mls/hr Q10H IV 05/24/16 08:45 Hold 05/25/16 14:38 (NS 1000 ml Inj) 1,000 ml @ 100 mls/hr Q10H IV 05/29/16 09:00 05/29/16 09:00 Urinary Catheter: No Vascular Central Line Catheter: No A/P Problem List: (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 Status: Acute (2) Stomatitis and mucositis ICD Code: K12.1 Status: Acute (3) Sepsis ICD Code: A41.9 Status: Resolved (4) Leukocytosis ICD Code: D72.829 Status: Resolved (5) Sinus tachycardia ICD Code: R00.0 Status: Resolved (6) Hyponatremia ICD Code: E87.1 Status: Acute (7) Hypercalcemia of malignancy ICD Code: E83.52 Status: Resolved (8) 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: Chronic (9) Electrolyte abnormality ICD Code: E87.8 Status: Resolved (10) Severe protein-calorie malnutrition ICD Code: E43 Status: Acute (11) Constipation ICD Code: K59.00 Status: Resolved (12) DNR no code (do not resuscitate) ICD Code: Z66 Status: Acute (13) Palliative care patient ICD Code: Z51.5 Status: Acute (14) Hypomagnesemia ICD Code: E83.42 Status: Resolved (15) Nausea ICD Code: R11.0 Status: Resolved (16) Radiation-induced dermatitis ICD Code: L58.9 Status: Acute (17) 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: Acute (18) Hypotension ICD Code: I95.9 Status: Acute Assessment and Plan (1) Squamous cell carcinoma of oropharynx Plan: Squamous Cell Carcinoma of Oropharynx, CT of the face showed very large heterogeneous soft tissue mass along the right side of the face with gross destruction involving most of the right mandible. Probable Metastatic Disease to the Abdomen and Lung/Liver. 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 continue Radiation therapy and Chemotherapy as per research laboratory specialist. and Radiation specialist following. 05/26 As per medical oncology, resection not possible at this moment. Patient has less of chemotherapy today and radiation therapy next week. Debulking surgery cancelled. Risk of bleeding if surgery is done is to high. Discussed with Dr Del Rosario. As per oncology it is best to wait 12 weeks after radiation therapy and chemotherapy is done and then obtain a PET scan to see if there is any active tumor activity. Continue management as per oncology. (2) Stomatitis and mucositis Plan: Concern for radiation dermatitis. Radiation and chemotherapy held last week. Continue oral hygiene. (3) Sepsis Plan: Patient was having low-grade fevers which have not come back since . Possibly right facial wound and central line suspected to be the source. Central line was discontinued. 1 bottle blood cultures with Pseudomonas stutzeri. Patient was treated with IV Zosyn for total of 2 weeks N date 04/20/16. Repeat blood cultures on 26/07, 04/19,05/04, 05/10 all negative x5. Patient was being treated with Levaquin, Flagyl and fluconazole orally. Levaquin was discontinued. The patient is currently being treated with IV Unasyn, oral Flagyl and oral fluconazole. The prior exam handled by attending physician who does not want ID specialist on the case. (4) Leukocytosis Plan: Leukocytosis likely secondary to sepsis as above. Leukocytosis resolved. Continue to monitor CBC with differential. 05/25 WBC within normal range. (5) Sinus tachycardia Plan: TSH within normal limits. Continue to monitor vital signs. Possibly compensatory to anemia. Patient status post infusion of packed red blood cells after hemoglobin dropped to 6.5. However patient still with sinus tachycardia. Continue to monitor vital signs. 05/27 Sinus tachycardia now resolved. (6) Hyponatremia Plan: Suspected SIADH. Patient looks euvolemic. 05/18 Initially free water was decreased with temporary correction of hyponatremia. sodium now trending down to 132. Check serum and urine osmolality due to worsening hyponatremia. 05/19 sodium much improved and trending up, today 136. Urine and serum aspartate consistent with SIADH which is likely secondary to nausea. Continue to monitor BMP and sodium. Free water was discontinued. 05/25 Sodium trending down. Patient is on IV fluids which I will stop for now. If bp gets low then might bennefit from IV fluid boluses instead of continuos infusion. 05/28 Sodium now within normal range at 137. Continue to monitor BMP. 05/29 Sodium dropped down to 132. Patient looks somewhat dry - will start NS and monitor BMP - if sodium continued to trend down despite NS then will DC fluids and give sodium tablets. (7) Hypercalcemia of malignancy Plan: Status post treatment with Aredia. Now resolved. Continue to monitor. (8) Anemia due to chemotherapy Plan: Status post PRBC transfusion. Hemoglobin stable at 8.9. Continue to monitor H&H. Transfuse to keep hemoglobin more than 7 . 05/16 hemoglobin today down to 6.5. Likely secondary to chemotherapy. Improved after transfusion of 2 units of packed red blood cells. Hemoglobin now 8.6 and stable for several days after the fusion. 05/25 hemoglobin stable at 8.2. Continue to monitor CBC periodically. (9) Electrolyte abnormality Plan: Patient with hypokalemia, hypomagnesemia and hypophosphatemia likely from nutritional deficiency due to decreased by mouth intake. All have been replaced and corrected - continue to monitor electrolytes. (10) Severe protein-calorie malnutrition Plan: As evidenced by a more low albumin of 1.5, patient not eating much due to location of cancer. Registered dietitian consulting. Follow-up recommendations. Patient currently on Jevity 1.5 with 6 boluses daily which the patient has been tolerating. However the patient has not been gaining weight and dietitian recommends switching to feeding formulas to [facility]. Changes be made. Schedule of bolus feeding changed on 05/19 to better fit the patient's radiotherapy schedule and patient would be off the floor and miss tube feedings. (11) Constipation Plan: Seems to be stable. On Senna, colace and Miralax daily. (12) DNR no code (do not resuscitate) Plan: Patient has DO NOT RESUSCITATE status (13) Palliative care patient Plan: Patient being followed by palliative care. (14) Anemia due to chemotherapy Hemoglobin stable. Continue to monitor CBC. Last hemoglobin 9.9 on 05/28 (15) Hypotension Bp now improved but borderline low. Continue to monitor bp. GI prophylaxis: Lactinex, will add PPI. Prophylaxis: SCDs, continue Lovenox subcutaneously. Discharge Planning Most likely a long hospital stay due to severity of cancer. Continue to monitor in the oncology floor. Problem Qualifiers (1) Hypotension: Qualified Code: I95.9 - Hypotension, unspecified hypotension type Nirav Preston MD May 29, 2016 17:44
[2016-05-29 20:00] VITALS: BP 97/54; PULSE 114; RESP 18; TEMP 99.3; O2SAT 98
[2016-05-30] VITALS: BP 99/60; PULSE 110; RESP 16; TEMP 98.1; O2SAT 99
[2016-05-30 04:00] VITALS: BP 101/59; PULSE 96; RESP 17; TEMP 96.9; O2SAT 98
[2016-05-30] MEDS: AMPICILLIN-SULBACTAM INJ 3 GM in SODIUM CHLORIDE 0.9% INJ 100 ML IV SCH ×4 (04:41→21:56)
[2016-05-30] MEDS: SODIUM CHLOR 0.9% 1000 ML INJ 1,000 ML IV SCH ×2 (05:16→15:00)
[2016-05-30] MEDS: FREE WATER G-TUBE SCH ×3 (06:00→18:00)
[2016-05-30] MEDS: METOCLOPRAMIDE HCL SYRUP 10 MG/10 ML UDC G-TUBE SCH ×4 (06:03→21:56)
[2016-05-30] MEDS: metroNIDAZOLE 500 MG TAB PO SCH ×3 (06:03→23:25)
[2016-05-30 07:00] LABS: BICARBONATE 27.3 MEQ/L (21.0-32.0); POTASSIUM 3.4 MEQ/L (3.5-5.1)
[2016-05-30 07:03] LABS: HEMATOCRIT 28.8 % (39.0-51.0); MEAN CELL VOLUME 90.3 FL (80.0-100.0); MEAN CORPUSCULAR HEMOGLOBIN 29.9 PG (27.0-34.0); MEAN CORPUSCULAR HGB CONC 33.1 % (32.0-36.0); PLATELET COUNT 409 TH/MM3 (150-450); RED BLOOD COUNT 3.19 MIL/MM3 (4.50-5.90); RED CELL DISTRIBUTION WIDTH 15.6 % (11.6-17.2); REVIEW FLAG FINAL; WHITE BLOOD COUNT 8.6 TH/MM3 (4.0-11.0)
[2016-05-30 08:00] VITALS: BP 108/70; PULSE 110; RESP 16; TEMP 96.4; O2SAT 96
[2016-05-30] MEDS: SODIUM CHLORIDE 0.9% FLUSH 5 ML FLUSH IVF SCH ×2 (09:00→21:00)
[2016-05-30] MEDS: LACTOBACILLUS ACIDOPHILUS TAB PO SCH ×3 (09:00→19:38)
[2016-05-30] MEDS: SILVER SULFADIAZINE 1% CR 50 GM JAR TOPICAL SCH ×2 (09:00→23:24)
[2016-05-30] MEDS: POTASSIUM PHOSPHATE MONOBASIC 500 MG TAB PO SCH ×2 (09:00→21:56)
[2016-05-30] MEDS: MAGNESIUM OXIDE 400 MG TAB GT SCH ×2 (09:00→21:57)
[2016-05-30] MEDS: FLUCONAZOLE 200 MG TAB PO SCH (09:00)
[2016-05-30] MEDS: POTASSIUM CHLORIDE 25 MEQ EFFERVESCENT TAB NG SCH ×2 (09:00→21:56)
[2016-05-30] MEDS: ACETAMINOPHEN 325MG/HYDROcodone 7.5MG/15ML UDC PO PRN ×2 (09:58→21:58)
[2016-05-30 12:00] VITALS: BP 130/76; PULSE 103; RESP 12; TEMP 98.4; O2SAT 98
--- NOTE | 2016-05-30 14:31 | HHI.PR ---
Subjective Remarks Patient denies nausea as per [facility] oncology PA radiation was held because patient c/o chest pain patient is non verbal but is able to communicate writing on a board denies any symptoms but states he feels tired afebrile denies headache c/o chest pain on chest right below the shoulders worsened by movement, described as some pressure without radiation. Pain subsides when he does not move. Objective Vitals Vital Signs Date Time Temp Pulse Resp B/P Pulse Ox O2 Delivery O2 Flow Rate FiO2 05/30/16 12:00 98.4 103 12 130/76 98 05/30/16 08:00 96.4 110 16 108/70 96 05/30/16 04:00 96.9 96 17 101/59 98 05/30/16 00:00 98.1 110 16 99/60 99 05/29/16 20:00 99.3 114 18 97/54 98 05/29/16 16:39 96.4 101 16 101/61 99 I/O 05/29/16 05/29/16 05/29/16 05/30/16 05/30/16 05/30/16 07:00 15:00 23:00 07:00 15:00 23:00 Intake Total 0 ml 100 ml 0 ml Balance 0 ml 100 ml 0 ml Intake Oral 0 ml 0 ml IV Total 100 ml # Voids 1 1 Result Diagram: 05/30/1662405/30/16624 Objective Remarks Gen NAD HEENT: large ulcerating exophytic mass on the right side of the face. mouth is partial shut. Lips cracked. CV RRR. no r/m/g. Pain on anterior right and left chest below the clavicle on palpation. Resp CTA B/L Abd soft NDNT EXT: no edema Procedures central line placement PEG placement bone biopsy teeth extraction Medications and IVs Current Medications Medications (Trade) Dose Ordered Sig/Sara Route Start Time Stop Time Status Last Admin (Zofran Inj) 4 mg Q6H PRN IV PUSH 04/02/16 01:45 05/17/16 09:01 (NS Flush) 2 ml UNSCH PRN IVF 04/02/16 08:15 05/22/16 06:26 (NS Flush) 2 ml BID IVF 04/02/16 09:00 05/29/16 10:36 (Benadryl) 25 mg Q6H PRN PO 04/02/16 09:00 05/17/16 11:32 (Lovenox Inj) 30 mg Q24H SQ 04/04/16 15:30 05/29/16 16:48 (Free Water) VOLUME: 200 ML Q6HR G-TUBE 04/04/16 08:45 05/30/16 06:00 (Tylenol) 650 mg Q4H PRN PO 04/07/16 01:45 05/21/16 17:02 (Morphine Inj) 2 mg Q2HR PRN IV PUSH 04/08/16 09:00 05/17/16 15:00 (Hycet 325-7.5 Mg Liq) 15 ml Q3HR PRN PO 04/08/16 14:45 05/30/16 09:58 (Colace Liq) 100 mg BID PRN GT 04/15/16 12:15 05/11/16 05:08 (Lactulose Liq) 30 ml TID PRN G-TUBE 04/15/16 12:15 (Dulcolax Supp) 10 mg DAILY PRN [place] 04/15/16 12:15 (Milk Of Magnesia Liq) 30 ml Q6H PRN GT 04/15/16 12:15 (Chapstick) 1 applic UNSCH PRN TOP 04/17/16 10:00 04/18/16 00:01 (Mag-Ox) 800 mg Q12HR GT 04/17/16 21:00 05/30/16 09:00 (Reglan Liq) 10 mg ACHS G-TUBE 04/19/16 16:00 05/30/16 10:12 (K-Phos) 500 mg Q12HR PO 04/24/16 12:00 05/30/16 09:00 (Lactinex) 1 tab TID PO 04/24/16 18:00 05/30/16 09:00 (Benadryl Inj) 25 mg Q4H PRN IV 04/26/16 19:00 05/26/16 11:43 (Diflucan) 200 mg DAILY PO 05/01/16 15:45 05/30/16 09:00 (Flagyl) 500 mg Q8HR PO 05/01/16 22:00 05/30/16 06:03 Potassium Bicarb/ Potassium Chloride 40 meq 40 meq Q12HR NG 05/04/16 22:00 05/30/16 09:00 (Unasyn Inj/NS Inj) 100 ml @ 200 mls/hr Q6H IV 05/10/16 22:00 05/30/16 10:12 (Magic Mouthwash Adult Liq) 5 ml QID PRN SWISH-SWAL 05/21/16 11:00 (Miralax) 17 gm DAILY PRN G-TUBE 05/21/16 11:00 Silver Sulfadiazine 1 applic 1 applic Q12HR TOPICAL 05/21/16 12:00 05/30/16 09:00 Sodium Chloride 1,000 ml @ 100 mls/hr Q10H IV 05/24/16 08:45 Hold 05/25/16 14:38 (NS 1000 ml Inj) 1,000 ml @ 100 mls/hr Q10H IV 05/29/16 09:00 05/30/16 05:16 Urinary Catheter: No Vascular Central Line Catheter: No A/P Problem List: (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 Status: Acute (2) Stomatitis and mucositis ICD Code: K12.1 Status: Acute (3) Sepsis ICD Code: A41.9 Status: Resolved (4) Leukocytosis ICD Code: D72.829 Status: Resolved (5) Sinus tachycardia ICD Code: R00.0 Status: Resolved (6) Hyponatremia ICD Code: E87.1 Status: Acute (7) Hypercalcemia of malignancy ICD Code: E83.52 Status: Resolved (8) 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: Chronic (9) Electrolyte abnormality ICD Code: E87.8 Status: Resolved (10) Severe protein-calorie malnutrition ICD Code: E43 Status: Acute (11) Constipation ICD Code: K59.00 Status: Resolved (12) DNR no code (do not resuscitate) ICD Code: Z66 Status: Acute (13) Palliative care patient ICD Code: Z51.5 Status: Acute (14) Hypomagnesemia ICD Code: E83.42 Status: Resolved (15) Nausea ICD Code: R11.0 Status: Resolved (16) Radiation-induced dermatitis ICD Code: L58.9 Status: Acute (17) 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: Acute (18) Hypotension ICD Code: I95.9 Status: Acute (19) Chest pain ICD Code: R07.9 Status: Acute Plan: Chest pain seems to be musculoskeletal, it is brought up by movement. However given the patient is currently undergoing radiation therapy to the head and neck I will obtain a chest x-ray, EKG, trend cardiac enzymes since there is some risk of cardiac injury after radiation therapy. Assessment and Plan (1) Squamous cell carcinoma of oropharynx Plan: Squamous Cell Carcinoma of Oropharynx, CT of the face showed very large heterogeneous soft tissue mass along the right side of the face with gross destruction involving most of the right mandible. Probable Metastatic Disease to the Abdomen and Lung/Liver. 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 continue Radiation therapy and Chemotherapy as per radiological health specialist. and Radiation specialist following. 05/26 As per medical oncology, resection not possible at this moment. Patient has less of chemotherapy today and radiation therapy next week. Debulking surgery cancelled. Risk of bleeding if surgery is done is to high. Discussed with Dr Del Rosario. As per oncology it is best to wait 12 weeks after radiation therapy and chemotherapy is done and then obtain a PET scan to see if there is any active tumor activity. Continue management as per oncology. 05/30 Radiation therapy held because patient c/o chest pain. I will order an EKG and cardiac enzymes. (2) Stomatitis and mucositis Plan: Concern for radiation dermatitis. Radiation and chemotherapy held last week. Continue oral hygiene. (3) Sepsis Plan: Patient was having low-grade fevers which have not come back since . Possibly right facial wound and central line suspected to be the source. Central line was discontinued. 1 bottle blood cultures with Pseudomonas stutzeri. Patient was treated with IV Zosyn for total of 2 weeks N date 04/20/16. Repeat blood cultures on 26/07, 04/19,05/04, 05/10 all negative x5. Patient was being treated with Levaquin, Flagyl and fluconazole orally. Levaquin was discontinued. The patient is currently being treated with IV Unasyn, oral Flagyl and oral fluconazole. Antibiotics handled by attending physician who does not want ID specialist on the case. 05/30/16 Sepsis seems to be improving since BP is much improved, patient afebrile without leukocytosis. Slight tachycardia. (4) Leukocytosis Plan: Leukocytosis likely secondary to sepsis as above. Leukocytosis resolved. Continue to monitor CBC with differential. 05/25 WBC within normal range. (5) Sinus tachycardia Plan: TSH within normal limits. Continue to monitor vital signs. Possibly compensatory to anemia. Patient status post infusion of packed red blood cells after hemoglobin dropped to 6.5. However patient still with sinus tachycardia. Continue to monitor vital signs. 05/30 Initially tachycardia resolved, back a few days ago - Hr 100 - 110. Continue IV fluids for now. (6) Hyponatremia Plan: Suspected SIADH. Patient looks euvolemic. 05/18 Initially free water was decreased with temporary correction of hyponatremia. sodium now trending down to 132. Check serum and urine osmolality due to worsening hyponatremia. 05/19 sodium much improved and trending up, today 136. Urine and serum aspartate consistent with SIADH which is likely secondary to nausea. Continue to monitor BMP and sodium. Free water was discontinued. 05/25 Sodium trending down. Patient is on IV fluids which I will stop for now. If bp gets low then might bennefit from IV fluid boluses instead of continuos infusion. 05/28 Sodium now within normal range at 137. Continue to monitor BMP. 05/29 Sodium dropped down to 132. Patient looks somewhat dry - will start NS and monitor BMP - if sodium continued to trend down despite NS then will DC fluids and give sodium tablets. 05/30 Sodium improving now 134. [place] due to hypovolemia. continue Normal saline and continue to monitor BMP. (7) Hypercalcemia of malignancy Plan: Status post treatment with Aredia. Now resolved. Continue to monitor. (8) Anemia due to chemotherapy Plan: Status post PRBC transfusion. Hemoglobin stable at 8.9. Continue to monitor H&H. Transfuse to keep hemoglobin more than 7 . 05/16 hemoglobin today down to 6.5. Likely secondary to chemotherapy. Improved after transfusion of 2 units of packed red blood cells. Hemoglobin now 8.6 and stable for several days after the fusion. 05/25 hemoglobin stable at 8.2. Continue to monitor CBC periodically. (9) Electrolyte abnormality Plan: Patient with hypokalemia, hypomagnesemia and hypophosphatemia likely from nutritional deficiency due to decreased by mouth intake. All have been replaced and corrected - continue to monitor electrolytes. (10) Severe protein-calorie malnutrition Plan: As evidenced by a more low albumin of 1.5, patient not eating much due to location of cancer. Registered dietitian consulting. Follow-up recommendations. Patient currently on Jevity 1.5 with 6 boluses daily which the patient has been tolerating. However the patient has not been gaining weight and dietitian recommends switching to feeding formulas to [employer] [facility]. Changes be made. Schedule of bolus feeding changed on 05/19 to better fit the patient's radiotherapy schedule and patient would be off the floor and miss tube feedings. (11) Constipation Plan: Seems to be stable. On Senna, colace and Miralax daily. (12) DNR no code (do not resuscitate) Plan: Patient has DO NOT RESUSCITATE status (13) Palliative care patient Plan: Patient being followed by palliative care. (14) Anemia due to chemotherapy Hemoglobin stable. Continue to monitor CBC. Last hemoglobin 9.5 on 05/30 (15) Hypotension Hypotension resolved. continue to monitor vital signs. GI prophylaxis: Lactinex, will add PPI. Prophylaxis: SCDs, continue Lovenox subcutaneously. Discharge Planning Most likely a long hospital stay due to severity of cancer. Continue to monitor in the oncology floor. Problem Qualifiers (1) Hypotension: Qualified Code: I95.9 - Hypotension, unspecified hypotension type Nirav Preston MD May 30, 2016 14:31
[2016-05-30] MEDS: ENOXAPARIN SODIUM 30 MG/0.3 ML SYRINGE SQ SCH (14:55)
--- NOTE | 2016-05-30 15:33 | HHI.HCPN ---
Reason for visit a. To assist with evaluation and management of symptoms including: jaw/ facial pain and debility. b. To assist medical decision maker(s) with: better understanding of current medical conditions; weighing benefits/burdens of medical treatment options; making medical treatment decisions. . Subjective/Interval History Patient was seen in his room. he was sitting up in his bed in no acute distress. No family at bedside. Communicating by mouthing words and writing on white board. Endorsing facial pain and generalized discomfort. Last radiation treatment scheduled for today, patient was unable to complete morning treatment secondary to pain. Patient reports that he is no longer taking sips of fluid by mouth. He feels that tumor has decreased in size and discharge is now controlled. Patient tells me that chemotherapy has been completed. Plan for debulking surgery within the next 2 to 3 months post completion of chemo and radiation, currently not a surgical candidate due to high risk for bleeding. Patient afebrile, slighly tachycardic with HR in the low 110's. Stable BP. Tolerating RA. Tolerating tube feeds, denies nausea or vomiting at time of my visit. Laboratory today WBC 8.6, Hgb 9.5, pl count 409. Sodium 134, potassium 3.4, BUN/creat 13/0.27. Albumin 1.7. LFT's within normal limits. No new imaging. . Family/friend interactions See interval note. . Advance Directives Living Will: Never completed Health Care Surrogate: Copy in medical record Durable Power of Snorkelling Instructor: Never completed Advance Directive Specifics Date completed: 04/11/2016. . Health Care Surrogate(s): Patient completed [facility] designation naming his brother Vish Jaimes as [facility]. . Documented care wishes: No living will completed. . Significant change in goals: NO CODE. Continue current medical management short of no code. . Objective Vital Signs Date Time Temp Pulse Resp B/P Pulse Ox O2 Delivery O2 Flow Rate FiO2 05/30/16 12:00 98.4 103 12 130/76 98 05/30/16 08:00 96.4 110 16 108/70 96 05/30/16 04:00 96.9 96 17 101/59 98 05/30/16 00:00 98.1 110 16 99/60 99 05/29/16 20:00 99.3 114 18 97/54 98 05/29/16 16:39 96.4 101 16 101/61 99 Intake & Output 05/30/16 05/30/16 07:00 19:00 Intake Total 0 ml Balance 0 ml Intake Oral 0 ml # Voids 1 Physical Exam CONSTITUTIONAL/GENERAL: This is an cachectic male in no acute distress. TUBES/LINES/DRAINS: PIV's. SKIN: Skin temperature appropriate. Not diaphoretic. Radiation andrade to bilateral anterior neck. HEAD: Atraumatic. Normocephalic. EYES: Pupils equal and round and reactive. No injection or drainage. ENT: Hearing grossly normal. Large mass to right side of mouth/jaw with dressing in place. CARDIOVASCULAR: Regular rate and rhythm. Peripheral pulses symmetric. RESPIRATORY/CHEST: Symmetric, unlabored respirations. Clear to auscultation. Breath sounds equal bilaterally. No wheezes, rales, or rhonchi. GASTROINTESTINAL: Abdomen soft, non-tender, nondistended. PEG in place. No guarding. Bowel sounds present. MUSCULOSKELETAL: Extremities without clubbing, cyanosis, or edema. significant muscle wasting noted. NEUROLOGICAL: alert, following commands. Attempting to communicate by hand gestures and nodding head to yes/no questions. PSYCHIATRIC: calm. . Diagnostic Tests Laboratory Laboratory Tests Test 05/28/16 05/29/16 05/30/16 06:57 05:20 06:25 White Blood Count 9.3 TH/MM3 8.6 TH/MM3 (4.0-11.0) (4.0-11.0) Red Blood Count 3.35 MIL/MM3 3.19 MIL/MM3 (4.50-5.90) (4.50-5.90) Hemoglobin 9.9 GM/DL 9.5 GM/DL (13.0-17.0) (13.0-17.0) Hematocrit 29.4 % 28.8 % (39.0-51.0) (39.0-51.0) Mean Corpuscular Volume 88.0 FL 90.3 FL (80.0-100.0) (80.0-100.0) Mean Corpuscular Hemoglobin 29.6 PG 29.9 PG (27.0-34.0) (27.0-34.0) Mean Corpuscular Hemoglobin 33.6 % 33.1 % Concent (32.0-36.0) (32.0-36.0) Red Cell Distribution Width 15.2 % 15.6 % (11.6-17.2) (11.6-17.2) Platelet Count 525 TH/MM3 409 TH/MM3 (150-450) (150-450) Mean Platelet Volume 6.6 FL 6.3 FL (7.0-11.0) (7.0-11.0) Sodium Level 136 MEQ/L 132 MEQ/L 134 MEQ/L (136-145) (136-145) (136-145) Potassium Level 3.6 MEQ/L 3.5 MEQ/L 3.4 MEQ/L (3.5-5.1) (3.5-5.1) (3.5-5.1) Chloride Level 99 MEQ/L 96 MEQ/L 100 MEQ/L (98-107) (98-107) (98-107) Carbon Dioxide Level 27.1 MEQ/L 27.7 MEQ/L 27.3 MEQ/L (21.0-32.0) (21.0-32.0) (21.0-32.0) Anion Gap 10 MEQ/L (5-15) 8 MEQ/L (5-15) 7 MEQ/L (5-15) Blood Urea Nitrogen 15 MG/DL (7-18) 15 MG/DL (7-18) 13 MG/DL (7-18) Creatinine 0.39 MG/DL 0.36 MG/DL 0.27 MG/DL (0.60-1.30) (0.60-1.30) (0.60-1.30) Estimat Glomerular Filtration 251 ML/MIN 275 ML/MIN 383 ML/MIN Rate (>89) (>89) (>89) Random Glucose 116 MG/DL 106 MG/DL 110 MG/DL (74-106) (74-106) (74-106) Calcium Level 8.8 MG/DL 8.9 MG/DL 9.2 MG/DL (8.5-10.1) (8.5-10.1) (8.5-10.1) Prothrombin Time 13.8 SEC (9.8-11.6) Prothromb Time International 1.2 RATIO Ratio Phosphorus Level 3.3 MG/DL (2.5-4.9) Magnesium Level 1.5 MG/DL (1.5-2.5) Total Bilirubin 0.3 MG/DL (0.2-1.0) Aspartate Amino Transf 15 U/L (15-37) (AST/SGOT) Alanine Aminotransferase 15 U/L (12-78) (ALT/SGPT) Alkaline Phosphatase 106 U/L (45-117) Total Protein 6.0 GM/DL (6.4-8.2) Albumin 1.7 GM/DL (3.4-5.0) Triglycerides Level 94 MG/DL (42-150) Result Diagram: 05/30/1662405/30/16624 Procedures * 04/03/16 - PEG placement * 04/03/16 - Biopsy of facial mass . 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 (2) Pain 0-10 Scale: 0 Comment: secondary to burden of disease. Pertinent Non-Medical Issues Psychosocial: Spiritual: Legal: Ethical issues impacting care: Important Contacts Brother Vish Nunn . . Prognosis Mr. Ribera is a 35 y/o male with no significant prior medical history who was admitted on 04/02/16 for treatment of facial mass. 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 Not a surgical candidate. Appears he has limited treatment options secondary to clinical condition, palliative radiation being considered. Patient's prognosis is very poor secondary to advanced cancer, profound physical deconditioning, and malnutrition. Patient is at high risk for further decline, additional complications and . . Code Status: No Code Plan * CODE STATUS: NO CODE. * HEALTHCARE DECISION-MAKING: Patient participating in medical decision-making. HCS completed, patient designated his brother Vish Nunn as healthcare surrogate. * GOALS OF CARE: Goal is to continue with current treatment plan for symptom management/improve quality of live. Patient and brother have verbalized understanding that pt's condition is terminal and not curable. They wish to continue current plan to include completion of palliative radiation and chemotherapy as tolerated. Plan for debulking surgery within the next 2 to 3 months after completion of rad/chemo. * SYMPTOMS: ==Oral pain, secondary to burden of disease. Lortab and Morphine available as needed. ==Debility: secondary to burden of disease and malnutrition. PT following. ==Dysphagia, secondary to burden of disease/tumor. Peg tube in place with ongoing feeding. * Palliative care contact information has been provided to patient and brother. * Ongoing emotional support and active listening provided. * Palliative care will continue to f/u with patient and family as needed for further clarification of goals and for emotional support. . Time Spent Total Floor Time (mins): 32 (Total time to include review of med records, physical exam and case discussion with bedside RN. ) >50% Counseling/Coord of Care: Yes Attestation To help prompt me to consider important information that might be impacting today's encounter and assessment, information from prior notes written by myself or my colleagues may have been "brought forward" into today's note. My signature on this note, however, is an attestation that I personally performed the exam, history, and/or decision-making noted today, and, unless otherwise indicated, the interactions with patient, family, and staff as well as the review of records all occurred today. I also attest that the listed assessment and stated plan reflect my best clinical judgment today based on the combination of historical information, prior notes, and today's exam/ interactions. When time spent is documented, it refers only to time spent today by the signer, or if indicated, combined time spent today by collaborating physician/nurse practitioner. Manda De Anda May 30, 2016 15:33
[2016-05-30 16:00] VITALS: BP 99/50; PULSE 100; RESP 12; TEMP 98.8; O2SAT 99
[2016-05-30 16:37] LABS: CREATINE KINASE 43 U/L (39-308)
--- NOTE | 2016-05-30 16:53 | RADRPT ---
EXAM DATE/TIME: 05/30/2016 15:45 [facility] COMPARISON: CHEST SINGLE AP, May 10, 2016, 0:10. INDICATIONS : Chest pain. MEDICAL HISTORY : Ear. Nose. Throat carcinoma. SURGICAL HISTORY : None. ENCOUNTER: Subsequent ACUITY: 2 months PAIN SCORE: Non-responsive. LOCATION: Bilateral chest FINDINGS: A single view of the chest demonstrates possible developing nodules in both lower lobes, left greater than right. No confluent infiltrate or effusion. Heart size is normal. Osseous structures are intact . CONCLUSION: Possible bilateral pulmonary nodules, left greater than right. Demetrio Pressley MD on May 30, 2016 at 16:47 Board Certified Radiologist. This report was verified electronically.
[2016-05-30 20:00] VITALS: BP 93/59; PULSE 96; RESP 17; TEMP 99; O2SAT 96
[2016-05-30 21:48] LABS: CREATINE KINASE 24 U/L (39-308)
--- NOTE | 2016-05-30 22:18 | EKG ---
Date Performed: 05/30/2016 Time Performed: 20:44:08 PTAGE: 35 years EKG: SINUS TACHYCARDIA WITH SHORT CA INTERVAL ABNORMAL RHYTHM ECG PREVIOUS TRACING : 05/30/2016 15.20 Compared to prior tracing no significant change DOCTOR: Kizzy Watson Interpretating Date/Time 05/30/2016 22:16:27
--- NOTE | 2016-05-30 22:29 | EKG ---
Date Performed: 05/30/2016 Time Performed: 15:20:18 PTAGE: 35 years EKG: Sinus rhythm NORMAL ECG PREVIOUS TRACING : 05/17/2016 12.48 Compared to prior tracing no significant change DOCTOR: Kizzy Watson Interpretating Date/Time 05/30/2016 22:27:27
[2016-05-31] VITALS: BP 97/57; PULSE 115; RESP 17; TEMP 97.2; O2SAT 96
[2016-05-31 04:02] LABS: CREATINE KINASE 31 U/L (39-308)
[2016-05-31] MEDS: metroNIDAZOLE 500 MG TAB PO SCH ×3 (05:06→21:43)
[2016-05-31] MEDS: ACETAMINOPHEN 325MG/HYDROcodone 7.5MG/15ML UDC PO PRN ×3 (05:06→21:42)
[2016-05-31] MEDS: SODIUM CHLOR 0.9% 1000 ML INJ 1,000 ML IV SCH ×3 (05:06→21:44)
[2016-05-31] MEDS: AMPICILLIN-SULBACTAM INJ 3 GM in SODIUM CHLORIDE 0.9% INJ 100 ML IV SCH ×4 (05:07→21:44)
[2016-05-31] MEDS: FREE WATER G-TUBE SCH ×5 (05:07→23:27)
[2016-05-31] MEDS: METOCLOPRAMIDE HCL SYRUP 10 MG/10 ML UDC G-TUBE SCH ×4 (05:13→21:41)
[2016-05-31 07:50] VITALS: BP 84/53; PULSE 94; RESP 20; TEMP 98.6; O2SAT 96
[2016-05-31] MEDS: SODIUM CHLORIDE 0.9% FLUSH 5 ML FLUSH IVF SCH ×2 (09:00→21:00)
[2016-05-31] MEDS: SILVER SULFADIAZINE 1% CR 50 GM JAR TOPICAL SCH ×2 (09:00→21:44)
[2016-05-31 10:20] LABS: HEMATOCRIT 25.7 % (39.0-51.0); MEAN CELL VOLUME 87.6 FL (80.0-100.0); MEAN CORPUSCULAR HEMOGLOBIN 30.1 PG (27.0-34.0); MEAN CORPUSCULAR HGB CONC 34.3 % (32.0-36.0); PLATELET COUNT 402 TH/MM3 (150-450); RED BLOOD COUNT 2.93 MIL/MM3 (4.50-5.90); RED CELL DISTRIBUTION WIDTH 15.2 % (11.6-17.2); REVIEW FLAG FINAL; WHITE BLOOD COUNT 4.8 TH/MM3 (4.0-11.0)
[2016-05-31] MEDS: LACTOBACILLUS ACIDOPHILUS TAB PO SCH ×3 (10:26→17:18)
[2016-05-31] MEDS: POTASSIUM PHOSPHATE MONOBASIC 500 MG TAB PO SCH ×2 (10:27→21:43)
[2016-05-31] MEDS: POTASSIUM CHLORIDE 25 MEQ EFFERVESCENT TAB NG SCH ×2 (10:27→21:43)
[2016-05-31] MEDS: MAGNESIUM OXIDE 400 MG TAB GT SCH ×2 (10:27→21:41)
[2016-05-31] MEDS: FLUCONAZOLE 200 MG TAB PO SCH (10:27)
[2016-05-31 10:32] LABS: BICARBONATE 28.5 MEQ/L (21.0-32.0); POTASSIUM 3.7 MEQ/L (3.5-5.1)
[2016-05-31 11:50] VITALS: BP 97/57; PULSE 101; RESP 20; TEMP 99; O2SAT 98
[2016-05-31] MEDS: ENOXAPARIN SODIUM 30 MG/0.3 ML SYRINGE SQ SCH (14:25)
[2016-05-31 15:50] VITALS: BP 89/53; PULSE 96; RESP 20; TEMP 98; O2SAT 100
[2016-05-31] MEDS ORDERED: SODIUM CHLORID 0.9% 500 ML INJ 500 ML IV ONE (17:45)
[2016-05-31] MEDS ORDERED: VANCOMYCIN INJ 1,000 MG in SODIUM CHLOR 0.9% 250 ML INJ 250 ML IV SCH (19:30)
[2016-05-31] MEDS ORDERED: Vancomycin Consult Pharmacy 1 EA OTHER SCH (19:30)
--- NOTE | 2016-05-31 19:35 | HHI.PR ---
Subjective Remarks Patient's blood presure low into mid 80's systolic. Patient has been sleeping on and off as per RN there was purulent discharge on dressing covering PEG tube. patient still has had chest pain today Objective Vitals Vital Signs Date Time Temp Pulse Resp B/P Pulse Ox O2 Delivery O2 Flow Rate FiO2 05/31/16 11:50 99.0 101 20 97/57 98 05/31/16 07:50 98.6 94 20 84/53 96 05/31/16 00:00 97.2 115 17 97/57 96 05/30/16 20:00 99.0 96 17 93/59 96 I/O 05/30/16 05/30/16 05/30/16 05/31/16 05/31/16 05/31/16 07:00 15:00 23:00 07:00 15:00 23:00 Intake Total 0 ml Balance 0 ml Intake Oral 0 ml # Voids 1 Result Diagram: 05/31/16 1001 05/31/16 1001 Imaging Last 72 hours Impressions Chest X-Ray 05/30/16 0000 Signed Impressions: Service Date/Time: Monday, May 30, 2016 15:45 - CONCLUSION: Possible bilateral pulmonary nodules, left greater than right. Demetrio Pressley MD Objective Remarks Gen NAD HEENT: large ulcerating exophytic mass on the right side of the face. mouth is partial shut. Lips cracked. CV RRR. no r/m/g. Pain on anterior right and left chest below the clavicle on palpation. Resp CTA B/L Abd soft NDNT, PEG tube has mild erythema surrounding its insertion site. Some thick purulent discharged noticed. EXT: no edema Procedures central line placement PEG placement bone biopsy teeth extraction Medications and IVs Current Medications Medications (Trade) Dose Ordered Sig/Sara Route Start Time Stop Time Status Last Admin (Zofran Inj) 4 mg Q6H PRN IV PUSH 04/02/16 01:45 05/17/16 09:01 (NS Flush) 2 ml UNSCH PRN IVF 04/02/16 08:15 05/22/16 06:26 (NS Flush) 2 ml BID IVF 04/02/16 09:00 05/29/16 10:36 (Benadryl) 25 mg Q6H PRN PO 04/02/16 09:00 05/17/16 11:32 (Lovenox Inj) 30 mg Q24H SQ 04/04/16 15:30 05/31/16 14:25 (Free Water) VOLUME: 200 ML Q6HR G-TUBE 04/04/16 08:45 05/31/16 17:18 (Tylenol) 650 mg Q4H PRN PO 04/07/16 01:45 05/21/16 17:02 (Morphine Inj) 2 mg Q2HR PRN IV PUSH 04/08/16 09:00 05/17/16 15:00 (Hycet 325-7.5 Mg Liq) 15 ml Q3HR PRN PO 04/08/16 14:45 05/31/16 14:37 (Colace Liq) 100 mg BID PRN GT 04/15/16 12:15 05/11/16 05:08 (Lactulose Liq) 30 ml TID PRN G-TUBE 04/15/16 12:15 (Dulcolax Supp) 10 mg DAILY PRN HI 04/15/16 12:15 (Milk Of Magnesia Liq) 30 ml Q6H PRN GT 04/15/16 12:15 (Chapstick) 1 applic UNSCH PRN TOP 04/17/16 10:00 04/18/16 00:01 (Mag-Ox) 800 mg Q12HR GT 04/17/16 21:00 05/31/16 10:27 (Reglan Liq) 10 mg ACHS G-TUBE 04/19/16 16:00 05/31/16 17:18 (K-Phos) 500 mg Q12HR PO 04/24/16 12:00 05/31/16 10:27 (Lactinex) 1 tab TID PO 04/24/16 18:00 05/31/16 17:18 (Benadryl Inj) 25 mg Q4H PRN IV 04/26/16 19:00 05/26/16 11:43 (Diflucan) 200 mg DAILY PO 05/01/16 15:45 05/31/16 10:27 (Flagyl) 500 mg Q8HR PO 05/01/16 22:00 05/31/16 14:25 Potassium Bicarb/ Potassium Chloride 40 meq 40 meq Q12HR NG 05/04/16 22:00 05/31/16 10:27 (Unasyn Inj/NS Inj) 100 ml @ 200 mls/hr Q6H IV 05/10/16 22:00 05/31/16 17:18 (Magic Mouthwash Adult Liq) 5 ml QID PRN SWISH-SWAL 05/21/16 11:00 (Miralax) 17 gm DAILY PRN G-TUBE 05/21/16 11:00 Silver Sulfadiazine 1 applic 1 applic Q12HR TOPICAL 05/21/16 12:00 05/31/16 09:00 Sodium Chloride 1,000 ml @ 100 mls/hr Q10H IV 05/24/16 08:45 Hold 05/25/16 14:38 (NS 1000 ml Inj) 1,000 ml @ 100 mls/hr Q10H IV 05/29/16 09:00 05/31/16 17:18 Urinary Catheter: No Vascular Central Line Catheter: No A/P Problem List: (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 Status: Acute (2) Stomatitis and mucositis ICD Code: K12.1 Status: Acute (3) Sepsis ICD Code: A41.9 Status: Resolved (4) Leukocytosis ICD Code: D72.829 Status: Resolved (5) Sinus tachycardia ICD Code: R00.0 Status: Resolved (6) Hyponatremia ICD Code: E87.1 Status: Acute (7) Hypercalcemia of malignancy ICD Code: E83.52 Status: Resolved (8) 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: Chronic (9) Electrolyte abnormality ICD Code: E87.8 Status: Resolved (10) Severe protein-calorie malnutrition ICD Code: E43 Status: Acute (11) Constipation ICD Code: K59.00 Status: Resolved (12) DNR no code (do not resuscitate) ICD Code: Z66 Status: Acute (13) Palliative care patient ICD Code: Z51.5 Status: Acute (14) Hypomagnesemia ICD Code: E83.42 Status: Resolved (15) Nausea ICD Code: R11.0 Status: Resolved (16) Radiation-induced dermatitis ICD Code: L58.9 Status: Acute (17) 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: Acute (18) Hypotension ICD Code: I95.9 Status: Acute (19) Chest pain ICD Code: R07.9 Status: Acute Plan: Chest pain seems to be musculoskeletal, it is brought up by movement. However given the patient is currently undergoing radiation therapy to the head and neck I will obtain a chest x-ray which shows pulmonary nodules. Cardiac enzymes trended and negative 3. EKG was obtained serially 3 and shows sinus rhythm without ST-T changes. (20) Infection of PEG site ICD Code: K94.22 Status: Acute Plan: . On discharge along with some erythema noted around PEG tube. Will obtain culture from PEG tube site. I will start patient on IV vancomycin empirically since the patient is hypotensive. Assessment and Plan (1) Squamous cell carcinoma of oropharynx Plan: Squamous Cell Carcinoma of Oropharynx, CT of the face showed very large heterogeneous soft tissue mass along the right side of the face with gross destruction involving most of the right mandible. Probable Metastatic Disease to the Abdomen and Lung/Liver. 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 continue Radiation therapy and Chemotherapy as per system specialist. and Radiation specialist following. 05/26 As per medical oncology, resection not possible at this moment. Patient has less of chemotherapy today and radiation therapy next week. Debulking surgery cancelled. Risk of bleeding if surgery is done is to high. Discussed with Dr Del Rosario. As per oncology it is best to wait 12 weeks after radiation therapy and chemotherapy is done and then obtain a PET scan to see if there is any active tumor activity. Continue management as per oncology. 05/30 Radiation therapy held because patient c/o chest pain. I will order an EKG and cardiac enzymes. (2) Stomatitis and mucositis Plan: Concern for radiation dermatitis. Radiation and chemotherapy held last week. Continue oral hygiene. (3) Sepsis Plan: Patient was having low-grade fevers which have not come back since . Possibly right facial wound and central line suspected to be the source. Central line was discontinued. 1 bottle blood cultures with Pseudomonas stutzeri. Patient was treated with IV Zosyn for total of 2 weeks N date 04/20/16. Repeat blood cultures on 26/07, 04/19,05/04, 05/10 all negative x5. Patient was being treated with Levaquin, Flagyl and fluconazole orally. Levaquin was discontinued. The patient is currently being treated with IV Unasyn, oral Flagyl and oral fluconazole. Antibiotics handled by attending physician who does not want ID specialist on the case. 05/30/16 Sepsis seems to be improving since BP is much improved, patient afebrile without leukocytosis. Slight tachycardia. 05/31 Patient with hypotension. Peg site looks infected. I will obtain cultures from PEG site and start empirically on Iv vancomycin. (4) Leukocytosis Plan: Leukocytosis likely secondary to sepsis as above. Leukocytosis resolved. Continue to monitor CBC with differential. 05/25 WBC within normal range. (5) Sinus tachycardia Plan: TSH within normal limits. Continue to monitor vital signs. Possibly compensatory to anemia. Patient status post infusion of packed red blood cells after hemoglobin dropped to 6.5. However patient still with sinus tachycardia. Continue to monitor vital signs. 05/30 Initially tachycardia resolved, back a few days ago - Hr 100 - 110. Continue IV fluids for now. (6) Hyponatremia Plan: Suspected SIADH. Patient looks euvolemic. 05/18 Initially free water was decreased with temporary correction of hyponatremia. sodium now trending down to 132. Check serum and urine osmolality due to worsening hyponatremia. 05/19 sodium much improved and trending up, today 136. Urine and serum aspartate consistent with SIADH which is likely secondary to nausea. Continue to monitor BMP and sodium. Free water was discontinued. 05/25 Sodium trending down. Patient is on IV fluids which I will stop for now. If bp gets low then might bennefit from IV fluid boluses instead of continuos infusion. 05/28 Sodium now within normal range at 137. Continue to monitor BMP. 05/29 Sodium dropped down to 132. Patient looks somewhat dry - will start NS and monitor BMP - if sodium continued to trend down despite NS then will DC fluids and give sodium tablets. 05/30 Sodium improving now 134. [place] due to hypovolemia. continue Normal saline and continue to monitor BMP. (7) Hypercalcemia of malignancy Plan: Status post treatment with Aredia. Now resolved. Continue to monitor. (8) Anemia due to chemotherapy Plan: Status post PRBC transfusion. Continue to monitor H&H. Transfuse to keep hemoglobin more than 7 . 05/16 hemoglobin today down to 6.5. Likely secondary to chemotherapy. Improved after transfusion of 2 units of packed red blood cells. Hemoglobin now 8.6 and stable for several days after the fusion.. Hemoglobin stable from 9.5 to 8.8 Continue to monitor CBC periodically. (9) Electrolyte abnormality Plan: Patient with hypokalemia, hypomagnesemia and hypophosphatemia likely from nutritional deficiency due to decreased by mouth intake. All have been replaced and corrected - continue to monitor electrolytes. (10) Severe protein-calorie malnutrition Plan: As evidenced by a more low albumin of 1.5, patient not eating much due to location of cancer. Registered dietitian consulting. Follow-up recommendations. Patient currently on Jevity 1.5 with 6 boluses daily which the patient has been tolerating. However the patient has not been gaining weight and dietitian recommends switching to feeding formulas to TwoCal HN. Changes be made. Schedule of bolus feeding changed on 05/19 to better fit the patient's radiotherapy schedule and patient would be off the floor and miss tube feedings. (11) Constipation Plan: Seems to be stable. On Senna, colace and Miralax daily. (12) DNR no code (do not resuscitate) Plan: Patient has DO NOT RESUSCITATE status (13) Palliative care patient Plan: Patient being followed by palliative care. (14) Anemia due to chemotherapy Hemoglobin stable. Continue to monitor CBC. Last hemoglobin 9.5 on 05/30 (15) Hypotension Patient initially hypotensive several days ago and resolved after IV fluid administration. 05/31 patient is again hypotensive with systolic blood pressure in the 80s. We' ll give him IV normal saline bolus and continue to monitor vital signs. GI prophylaxis: Lactinex, will add PPI. Prophylaxis: SCDs, continue Lovenox subcutaneously. Discharge Planning Most likely a long hospital stay due to severity of cancer. Continue to monitor in the oncology floor. Problem Qualifiers (1) Hypotension: Qualified Code: I95.9 - Hypotension, unspecified hypotension type Nirav Preston MD May 31, 2016 19:34
[2016-05-31 20:00] VITALS: BP 100/68; PULSE 96; RESP 18; TEMP 98.5; O2SAT 99
--- NOTE | 2016-05-31 20:18 | EKG ---
Date Performed: 05/31/2016 Time Performed: 02:49:36 PTAGE: 35 years EKG: Sinus rhythm NORMAL ECG PREVIOUS TRACING : 05/30/2016 20.44 Compared to prior tracing no significant change DOCTOR: Kizzy Watson Interpretating Date/Time 05/31/2016 20:18:00
[2016-05-31] MEDS: VANCOMYCIN INJ 750 MG in SODIUM CHLOR 0.9% 250 ML INJ 250 ML IV SCH (23:27)
[2016-06-01] VITALS: BP 92/56; PULSE 105; RESP 16; TEMP 98; O2SAT 96
[2016-06-01 04:00] VITALS: BP 90/55; PULSE 102; RESP 16; TEMP 98.6; O2SAT 97
[2016-06-01] MEDS: METOCLOPRAMIDE HCL SYRUP 10 MG/10 ML UDC G-TUBE SCH ×4 (05:02→22:11)
[2016-06-01] MEDS: AMPICILLIN-SULBACTAM INJ 3 GM in SODIUM CHLORIDE 0.9% INJ 100 ML IV SCH ×4 (05:02→22:12)
[2016-06-01] MEDS: metroNIDAZOLE 500 MG TAB PO SCH ×3 (05:02→22:11)
[2016-06-01] MEDS: VANCOMYCIN INJ 750 MG in SODIUM CHLOR 0.9% 250 ML INJ 250 ML IV SCH ×2 (05:54→13:00)
[2016-06-01] MEDS: FREE WATER G-TUBE SCH ×4 (05:54→22:12)
[2016-06-01] MEDS: SODIUM CHLOR 0.9% 1000 ML INJ 1,000 ML IV SCH ×5 (05:54→22:13)
[2016-06-01 07:24] LABS: BICARBONATE 26.2 MEQ/L (21.0-32.0); MAGNESIUM 1.5 MG/DL (1.5-2.5); POTASSIUM 3.5 MEQ/L (3.5-5.1)
[2016-06-01 07:45] LABS: HEMATOCRIT 23.6 % (39.0-51.0); MEAN CELL VOLUME 87.8 FL (80.0-100.0); MEAN CORPUSCULAR HEMOGLOBIN 29.7 PG (27.0-34.0); MEAN CORPUSCULAR HGB CONC 33.8 % (32.0-36.0); PLATELET COUNT 386 TH/MM3 (150-450); RED BLOOD COUNT 2.69 MIL/MM3 (4.50-5.90); RED CELL DISTRIBUTION WIDTH 15.1 % (11.6-17.2); REVIEW FLAG FINAL; WHITE BLOOD COUNT 4.9 TH/MM3 (4.0-11.0)
[2016-06-01 07:50] VITALS: BP_SYST 133; BP_SYST 90; BP_DIAS 51; BP_DIAS 64; PULSE 92; PULSE 99; RESP 20; TEMP 98.2; TEMP 99.5; O2SAT 97
[2016-06-01] MEDS: SODIUM CHLORIDE 0.9% FLUSH 5 ML FLUSH IVF SCH ×2 (09:00→21:00)
[2016-06-01] MEDS: LACTOBACILLUS ACIDOPHILUS TAB PO SCH ×3 (10:33→17:28)
[2016-06-01] MEDS: FLUCONAZOLE 200 MG TAB PO SCH (10:34)
[2016-06-01] MEDS: POTASSIUM CHLORIDE 25 MEQ EFFERVESCENT TAB NG SCH ×2 (10:35→22:11)
[2016-06-01] MEDS: POTASSIUM PHOSPHATE MONOBASIC 500 MG TAB PO SCH ×2 (10:35→22:15)
[2016-06-01] MEDS: MAGNESIUM OXIDE 400 MG TAB GT SCH ×2 (10:35→22:11)
[2016-06-01] MEDS: SILVER SULFADIAZINE 1% CR 50 GM JAR TOPICAL SCH ×2 (10:36→22:13)
[2016-06-01 11:50] VITALS: BP 96/54; PULSE 100; RESP 20; TEMP 98.4; O2SAT 96
[2016-06-01] MEDS: ACETAMINOPHEN 325MG/HYDROcodone 7.5MG/15ML UDC PO PRN ×2 (12:28→21:02)
--- NOTE | 2016-06-01 12:50 | HHI.PR ---
Subjective Remarks f/u mass and CP complaining of chest pain again with shortness of breath, still mildly hypotensive but no dizziness or lightheadedness, borderline tachycardic. No obvious bleeding. Objective Vitals Vital Signs Date Time Temp Pulse Resp B/P Pulse Ox O2 Delivery O2 Flow Rate FiO2 06/01/16 07:50 99.5 99 20 90/51 97 06/01/16 04:00 98.6 102 16 90/55 97 06/01/16 00:00 98.0 105 16 92/56 96 05/31/16 20:00 98.5 96 18 100/68 99 05/31/16 15:50 98.0 96 20 89/53 100 Result Diagram: 06/01/16 0514 06/01/16513 Objective Remarks Not in distress, cachectic appears ill HEENT: large ulcerating exophytic mass on the right side of the face. mouth is partial shut. Lips cracked. Borderline tachycardic, no murmurs Decreased breath sounds, no wheezing. Abdomen soft, mildly tender, PEG tube site with mild erythema and purulent discharge No edema Alert awake and oriented 3. 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: Chronic (9) Electrolyte abnormality ICD Code: E87.8 Status: Resolved (10) Severe protein-calorie malnutrition ICD Code: E43 Status: Acute (11) Constipation ICD Code: K59.00 Status: Resolved (12) DNR no code (do not resuscitate) ICD Code: Z66 Status: Acute (13) Palliative care patient ICD Code: Z51.5 Status: Acute (14) Hypomagnesemia ICD Code: E83.42 Status: Resolved (15) Nausea ICD Code: R11.0 Status: Resolved (16) Radiation-induced dermatitis ICD Code: L58.9 Status: Acute (17) 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: Acute (18) Hypotension ICD Code: I95.9 Status: Acute (19) Chest pain ICD Code: R07.9 Status: Acute (20) Infection of PEG site ICD Code: K94.22 Status: Acute Assessment and Plan Squamous cell carcinoma of the oropharynx - CT of the face showed very large heterogeneous soft tissue mass along the right side of the face with gross destruction involving most of the right mandible. Probable Metastatic Disease to the Abdomen and Lung/Liver. 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 Per medical oncology, resection not possible at this moment. No debulking surgery for now because of risk of bleeding. As per oncology it is best to wait 12 weeks after radiation therapy and chemotherapy is done and then obtain a PET scan to see if there is any active tumor activity. Continue management as per oncology with chemotherapy and radiotherapy. Radiotherapy on hold because of chest pain. Chest pain-patient is also mildly tachycardic and hypotensive, troponin negative , EKGs negative other than sinus rhythm with no ischemic changes. Possibly secondary to pulmonary nodules. But with hypotension and borderline tachycardia , check CTA of the chest. PEG tube site infection-erythema and discharge present, wound culture pending, no fever. Continue IV vancomycin empirically. 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 Continue oral hygiene. Sepsis secondary to bloodstream infection-1 blood culture bottle grew Pseudomonas stutzeri. Status post Zosyn. Repeat blood cultures negative. The patient is currently being treated with IV Unasyn, oral Flagyl and oral fluconazole. No leukocytosis. Sinus tachycardia-likely secondary to dehydration, restart fluids. Hyponatremia-stable Hypercalcemia of malignancy - Status post treatment with Aredia. Now resolved. Continue to monitor. 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 Hemoglobin stable.. Hypomagnesemia-replaced today Severe protein energy malnutrition As evidenced by a more low albumin of 1.5, patient not eating much due to location of cancer. Dietitian following, continue tube feeds. DO NOT RESUSCITATE, being filed the palliative care. GI prophylaxis: Lactinex, will add PPI. Prophylaxis: SCDs, continue Lovenox subcutaneously. Problem Qualifiers (1) Hypotension: Qualified Code: I95.9 - Hypotension, unspecified hypotension type Mamta Elias MD Jun 01, 2016 12:50
[2016-06-01] MEDS ORDERED: MAGNESIUM SULFATE 1 GM PREMIX 100 ML IV ONE (13:00)
--- NOTE | 2016-06-01 13:33 | HHI.PR ---
Subjective Subjective Notes Resting in bed Brother Cadir at bedside Objective Vitals/I&O Vital Signs Date Time Temp Pulse Resp B/P Pulse Ox O2 Delivery O2 Flow Rate FiO2 06/01/16 07:50 99.5 99 20 90/51 97 Labs Laboratory Tests Test 05/31/16 06/01/16 23:36 05:14 Vancomycin Level Trough LESS THAN 0.8 White Blood Count 4.9 Red Blood Count 2.69 Hemoglobin 8.0 Hematocrit 23.6 Mean Corpuscular Volume 87.8 Mean Corpuscular Hemoglobin 29.7 Mean Corpuscular Hemoglobin 33.8 Concent Red Cell Distribution Width 15.1 Platelet Count 386 Mean Platelet Volume 6.3 Sodium Level 134 Potassium Level 3.5 Chloride Level 100 Carbon Dioxide Level 26.2 Anion Gap 8 Blood Urea Nitrogen 9 Creatinine 0.23 Estimat Glomerular Filtration 461 Rate Random Glucose 92 Calcium Level 8.7 Phosphorus Level 2.6 Magnesium Level 1.5 Date/Time Procedure Status Source Growth 06/01/16 00:00 Gram Stain - Final Resulted Wound Abdomen 06/01/16 00:00 Wound Culture Resulted Wound Abdomen Pending Cardiovascular: Regular Lungs: Clear Abdomen: Non-distended, Non-tender, Other (PEG in place without complications ) Narrative Exam Face: large RIGHT sided facial malignancy A/P Assessment and Plan 35 year old male with large oropharyngeal cancer -Will wait 2-3 months to debulk tumor -s/p PEG placement -s/p biopsy of mass -Tolerating bolus feedings -Will work on extending VISA for Cadir I CERTIFY AND ATTEST THAT I PERSONALLY EXAMINED THIS PATIENT IN THEIR ROOM WITH THE BOARD LAYER PRESENT. MS STAPLETON IS DOCUMENTING OUR VISIT IN THE EMR AND ENTERED ORDERS UNDER MY DIRECT SUPERVISION. I DISCUSSED THE CARE PLAN WITH THE PATIENT AND THEIR [facility]FF. HAYDEN WOODS MD FACS Brittnee Stapleton Jun 01, 2016 13:33 Hayden Woods MD Jun 03, 2016 13:47
[2016-06-01 15:50] VITALS: BP 125/60; PULSE 93; RESP 20; TEMP 98; O2SAT 97
[2016-06-01] MEDS ORDERED: IOHEXOL 350 MG/ML 10 ML VIAL (for RAD DIAG) IV ONE (17:01)
--- NOTE | 2016-06-01 17:16 | RADRPT ---
EXAM DATE/TIME: 06/01/2016 16:48 [facility] COMPARISON: CT SIMULATION, May 18, 2016, 15:23. INDICATIONS : Chest pain and shortness of breath. IV CONTRAST: 75 cc Omnipaque 350 (iohexol) IV RADIATION DOSE: 21.38 CTDIvol (mGy) MEDICAL HISTORY : Carcinoma, basal cell. SURGICAL HISTORY : None. ENCOUNTER: Subsequent ACUITY: 2 days PAIN SCALE: 3/10 LOCATION: chest TECHNIQUE: Volumetric scanning of the chest was performed using a pulmonary embolism protocol MIP images were re constructed. Using automated exposure control and adjustment of the mA and/or kV according to patien t size, radiation dose was kept as low as reasonably achievable to obtain optimal diagnostic quality images. FINDINGS: PULMONARY ARTERIES: No filling defects are seen in the pulmonary arteries through the segmental level. LUNGS: Numerous bilateral pulmonary nodular densities scattered bilaterally. 1.6 x 0.9 cm nodular density in the right midlung on image #59. 9 mm nodular density in the right midlung on image #74. 2.8 cm nodul ar density in the left lower lung on image #84. PLEURAE: There is no pleural thickening or pleural effusion. MEDIASTINUM: Bilateral prominent hilar lymph nodes. Right sided soft tissue neck mass partially visualized. MUSCULOSKELETAL: 1.9 cm destructive lucent lesion in the left side of the sternal manubrium. MISCELLANEOUS: 2.2 cm rounded hypodensity in the left lobe of the liver, nonspecific. CONCLUSION: 1. No evidence of pulmonary embolus. 2. Numerous bilateral pulmonary nodules indicating pulmonary metastatic disease. 3. Destructive lucent bone lesion in the sternum indicating metastatic disease. 4. 2 cm nonspecific hypodense lesion in the left lobe of the liver. 5. Mildly enlarged hilar lymph nodes bilaterally. Prabhu Jang MD on June 01, 2016 at 17:02 Board Certified Radiologist. This report was verified electronically.
[2016-06-01] MEDS: ENOXAPARIN SODIUM 30 MG/0.3 ML SYRINGE SQ SCH (17:26)
[2016-06-01] MEDS: MUPIROCIN 2% OINT 22 GM TUBE TOPICAL SCH ×2 (17:28→22:13)
[2016-06-01 20:00] VITALS: BP 100/58; PULSE 112; RESP 18; TEMP 100.3; O2SAT 97
[2016-06-01] MEDS ORDERED: PHARMACY ORDERED LAB ONE (20:45)
[2016-06-02] VITALS: BP 90/55; PULSE 101; RESP 18; TEMP 97.8; O2SAT 97
[2016-06-02] MEDS: VANCOMYCIN INJ 750 MG in SODIUM CHLOR 0.9% 250 ML INJ 250 ML IV SCH ×4 (00:05→22:55)
[2016-06-02 04:00] VITALS: BP 101/58; PULSE 106; RESP 16; TEMP 99.3; O2SAT 96
[2016-06-02] MEDS: AMPICILLIN-SULBACTAM INJ 3 GM in SODIUM CHLORIDE 0.9% INJ 100 ML IV SCH ×4 (04:43→22:55)
[2016-06-02] MEDS: metroNIDAZOLE 500 MG TAB PO SCH ×3 (06:26→22:58)
[2016-06-02] MEDS: METOCLOPRAMIDE HCL SYRUP 10 MG/10 ML UDC G-TUBE SCH ×4 (06:26→22:57)
[2016-06-02] MEDS: FREE WATER G-TUBE SCH ×4 (06:26→22:58)
[2016-06-02 08:00] VITALS: BP 116/60; PULSE 105; RESP 12; TEMP 99.3; O2SAT 97
[2016-06-02] MEDS: SODIUM CHLORIDE 0.9% FLUSH 5 ML FLUSH IVF SCH ×2 (09:00→21:00)
[2016-06-02] MEDS: MUPIROCIN 2% OINT 22 GM TUBE TOPICAL SCH ×2 (09:00→22:58)
[2016-06-02] MEDS: SILVER SULFADIAZINE 1% CR 50 GM JAR TOPICAL SCH ×2 (09:00→22:58)
[2016-06-02] MEDS: POTASSIUM CHLORIDE 25 MEQ EFFERVESCENT TAB NG SCH ×2 (10:25→22:57)
[2016-06-02] MEDS: LACTOBACILLUS ACIDOPHILUS TAB PO SCH ×3 (10:25→18:00)
[2016-06-02] MEDS: POTASSIUM PHOSPHATE MONOBASIC 500 MG TAB PO SCH ×2 (10:25→22:57)
[2016-06-02] MEDS: SODIUM CHLOR 0.9% 1000 ML INJ 1,000 ML IV SCH ×2 (10:26→18:22)
[2016-06-02] MEDS: MAGNESIUM OXIDE 400 MG TAB GT SCH ×2 (10:26→22:57)
[2016-06-02] MEDS: FLUCONAZOLE 200 MG TAB PO SCH (10:26)
[2016-06-02 12:00] VITALS: BP 135/90; PULSE 111; RESP 16; TEMP 98.4; O2SAT 99
--- NOTE | 2016-06-02 15:27 | HHI.PR ---
Subjective Remarks Follow-up for chest pain Still not chest pain, no shortness of breath. Discussed extensively with patient through a scrum coach Adeline about the results of the CT scan. Brother is also in the room. All questions were answered. Objective Vitals Vital Signs Date Time Temp Pulse Resp B/P Pulse Ox O2 Delivery O2 Flow Rate FiO2 06/02/16 12:00 98.4 111 16 135/90 99 06/02/16 08:00 99.3 105 12 116/60 97 06/02/16 04:00 99.3 106 16 101/58 96 06/02/16 00:00 97.8 101 18 90/55 97 06/01/16 22:00 18 06/01/16 20:00 100.3 112 18 100/58 97 06/01/16 15:50 98.0 93 20 125/60 97 I/O 06/01/16 06/01/16 06/01/16 06/02/16 06/02/16 06/02/16 07:00 15:00 23:00 07:00 15:00 23:00 Intake Total 2104 ml Balance 2104 ml IV Total 1664 ml Tube Feeding 240 ml Other 200 ml # Voids 2 2 # Bowel Movements 0 Result Diagram: 06/01/16 0514 06/01/16 0514 Objective Remarks Not in distress, cachectic appears ill HEENT: large ulcerating exophytic mass on the right side of the face. mouth is partial shut. Lips cracked. Borderline tachycardic, no murmurs Decreased breath sounds, no wheezing. Abdomen soft, mildly tender, PEG tube site with mild erythema and purulent discharge No edema Alert awake and oriented 3. 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: Chronic (9) Electrolyte abnormality ICD Code: E87.8 Status: Resolved (10) Severe protein-calorie malnutrition ICD Code: E43 Status: Acute (11) Constipation ICD Code: K59.00 Status: Resolved (12) DNR no code (do not resuscitate) ICD Code: Z66 Status: Acute (13) Palliative care patient ICD Code: Z51.5 Status: Acute (14) Hypomagnesemia ICD Code: E83.42 Status: Resolved (15) Nausea ICD Code: R11.0 Status: Resolved (16) Radiation-induced dermatitis ICD Code: L58.9 Status: Acute (17) 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: Acute (18) Hypotension ICD Code: I95.9 Status: Acute (19) Chest pain ICD Code: R07.9 Status: Acute (20) Infection of PEG site ICD Code: K94.22 Status: Acute Assessment and Plan Squamous cell carcinoma of the oropharynx - CT of the face showed very large heterogeneous soft tissue mass along the right side of the face with gross destruction involving most of the right mandible. Probable Metastatic Disease to the Abdomen and Lung/Liver. 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 Per medical oncology, resection not possible at this moment. No debulking surgery for now because of risk of bleeding. As per oncology it is best to wait 12 weeks after radiation therapy and chemotherapy is done and then obtain a PET scan to see if there is any active tumor activity. Continue management as per oncology with chemotherapy and radiotherapy. Radiotherapy on hold because of chest pain. Chest pain- likely secondary to pulmonary metastatic lesions and lesions in the sternum. CT scan of the chest done, no pulmonary embolism but showed metastatic lesion to the sternum. This was communicated well with the patient and patient's brother through a scrum coach. EKGs negative other than sinus rhythm with no ischemic changes. PEG tube site infection-erythema and discharge present, wound culture pending, no fever. Continue IV vancomycin empirically. 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 Continue oral hygiene. Sepsis secondary to bloodstream infection-1 blood culture bottle grew Pseudomonas stutzeri. Status post Zosyn. Repeat blood cultures negative.The patient is currently being treated with IV Unasyn, oral Flagyl and oral fluconazole. No leukocytosis. Sinus tachycardia-likely secondary to dehydration, continue IVF, monitor. Hyponatremia-stable Hypercalcemia of malignancy - Status post treatment with Aredia. Now resolved. Continue to monitor. 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 Hemoglobin stable.. Hypomagnesemia-replaced today Severe protein energy malnutrition As evidenced by a more low albumin of 1.5, patient not eating much due to location of cancer. Dietitian following, continue tube feeds. DO NOT RESUSCITATE, being filed the palliative care. GI prophylaxis: Lactinex, will add PPI. Prophylaxis: SCDs, continue Lovenox subcutaneously. Problem Qualifiers (1) Hypotension: Qualified Code: I95.9 - Hypotension, unspecified hypotension type Mamta Elias MD Jun 02, 2016 15:27
[2016-06-02] MEDS: ENOXAPARIN SODIUM 30 MG/0.3 ML SYRINGE SQ SCH (15:30)
[2016-06-02 16:00] VITALS: BP 115/56; PULSE 103; RESP 12; TEMP 99.8; O2SAT 99
[2016-06-02 20:00] VITALS: BP 106/59; PULSE 100; RESP 17; TEMP 98.9; O2SAT 99
[2016-06-02] MEDS ORDERED: PHARMACY ORDERED LAB ONE (20:45)
[2016-06-03] VITALS: BP 111/59; PULSE 109; RESP 18; TEMP 98.2; O2SAT 98
[2016-06-03] MEDS: ACETAMINOPHEN 325MG/HYDROcodone 7.5MG/15ML UDC PO PRN ×3 (00:09→21:16)
[2016-06-03] MEDS: SODIUM CHLOR 0.9% 1000 ML INJ 1,000 ML IV SCH ×2 (02:30→04:57)
[2016-06-03 04:00] VITALS: BP 106/58; PULSE 87; RESP 18; TEMP 96.3; O2SAT 98
[2016-06-03] MEDS: AMPICILLIN-SULBACTAM INJ 3 GM in SODIUM CHLORIDE 0.9% INJ 100 ML IV SCH ×2 (04:05→10:04)
[2016-06-03] MEDS: VANCOMYCIN INJ 750 MG in SODIUM CHLOR 0.9% 250 ML INJ 250 ML IV SCH (04:56)
[2016-06-03] MEDS: FREE WATER G-TUBE SCH ×4 (06:49→23:42)
[2016-06-03] MEDS: metroNIDAZOLE 500 MG TAB PO SCH ×3 (06:51→21:13)
[2016-06-03] MEDS: METOCLOPRAMIDE HCL SYRUP 10 MG/10 ML UDC G-TUBE SCH ×4 (06:51→21:13)
[2016-06-03 08:00] VITALS: BP 107/64; PULSE 122; RESP 20; TEMP 97.1; O2SAT 98
[2016-06-03] MEDS: SODIUM CHLORIDE 0.9% FLUSH 5 ML FLUSH IVF SCH ×2 (09:00→21:00)
[2016-06-03] MEDS: FLUCONAZOLE 200 MG TAB PO SCH (10:12)
[2016-06-03] MEDS: LACTOBACILLUS ACIDOPHILUS TAB PO SCH ×3 (10:12→16:53)
[2016-06-03] MEDS: SILVER SULFADIAZINE 1% CR 50 GM JAR TOPICAL SCH ×2 (10:13→21:00)
[2016-06-03] MEDS: MUPIROCIN 2% OINT 22 GM TUBE TOPICAL SCH ×2 (10:13→21:00)
[2016-06-03] MEDS: MAGNESIUM OXIDE 400 MG TAB GT SCH ×2 (10:13→21:13)
[2016-06-03] MEDS: POTASSIUM PHOSPHATE MONOBASIC 500 MG TAB PO SCH ×2 (10:13→21:13)
[2016-06-03] MEDS: POTASSIUM CHLORIDE 25 MEQ EFFERVESCENT TAB NG SCH ×2 (10:13→21:12)
--- NOTE | 2016-06-03 11:25 | HHI.PR ---
Subjective Remarks Follow-up for shortness of breath next Patient started complaining of shortness of breath, coughing blood but this is been his baseline, a febrile. Objective Vitals Vital Signs Date Time Temp Pulse Resp B/P Pulse Ox O2 Delivery O2 Flow Rate FiO2 06/03/16 08:00 97.1 122 20 107/64 98 06/03/16 04:00 96.3 87 18 106/58 98 06/03/16 01:05 18 06/03/16 00:00 98.2 109 18 111/59 98 06/02/16 20:00 98.9 100 17 106/59 99 06/02/16 16:00 99.8 103 12 115/56 99 06/02/16 12:00 98.4 111 16 135/90 99 I/O 06/02/16 06/02/16 06/02/16 06/03/16 06/03/16 06/03/16 07:00 15:00 23:00 07:00 15:00 23:00 Intake Total 2104 ml 320 ml 2190 ml Balance 2104 ml 320 ml 2190 ml IV Total 1664 ml 1750 ml Tube Feeding 240 ml 120 ml 240 ml Other 200 ml 200 ml 200 ml # Voids 2 2 1 Result Diagram: 06/01/16 0514 06/03/16 0610 Objective Remarks Not in distress, cachectic appears ill HEENT: large ulcerating exophytic mass on the right side of the face. mouth is partial shut. Lips cracked. Borderline tachycardic, no murmurs Occasional arousals, no wheezing. Abdomen soft, mildly tender, PEG tube site with mild erythema and purulent discharge No edema Alert awake and oriented 3. 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: Chronic (9) Electrolyte abnormality ICD Code: E87.8 Status: Resolved (10) Severe protein-calorie malnutrition ICD Code: E43 Status: Acute (11) Constipation ICD Code: K59.00 Status: Resolved (12) DNR no code (do not resuscitate) ICD Code: Z66 Status: Acute (13) Palliative care patient ICD Code: Z51.5 Status: Acute (14) Hypomagnesemia ICD Code: E83.42 Status: Resolved (15) Nausea ICD Code: R11.0 Status: Resolved (16) Radiation-induced dermatitis ICD Code: L58.9 Status: Acute (17) 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: Acute (18) Hypotension ICD Code: I95.9 Status: Acute (19) Chest pain ICD Code: R07.9 Status: Acute (20) Infection of PEG site ICD Code: K94.22 Status: Acute Assessment and Plan This is a 35-year-old male who had developed a facial mass since June [address] [facility]. Facial mass secondary to Squamous cell carcinoma of the oropharynx - CT of the face showed very large heterogeneous soft tissue mass along the right side of the face with gross destruction involving most of the right mandible. Probable Metastatic Disease to the Abdomen and Lung/Liver. 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 Per medical oncology, resection not possible at this moment. No debulking surgery for now because of risk of bleeding. As per oncology it is best to wait 12 weeks after radiation therapy and chemotherapy is done and then obtain a PET scan to see if there is any active tumor activity. Continue management as per oncology with chemotherapy and radiotherapy. Shortness of breath- check chest x-ray, CBC, Stop IVF for now. Could be secondary to fluid overload versus metastatic disease to the lungs. No desaturation. On vancomycin, continue this for now. Also on Unasyn, will switch to cefepime. Chest pain- likely secondary to pulmonary metastatic lesions and lesions in the sternum. CT scan of the chest done, no pulmonary embolism but showed metastatic lesion to the sternum. This was communicated well with the patient and patient's brother through a dray driver. EKGs negative other than sinus rhythm with no ischemic changes. PEG tube site infection-erythema and discharge present, wound culture growing Escherichia coli, stop vancomycin, start cefepime, continue mupirocin. 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 Continue oral hygiene. Sepsis secondary to bloodstream infection-1 blood culture bottle grew Pseudomonas stutzeri. Status post Zosyn. Repeat blood cultures negative, also on Flagyl and oral fluconazole per surgery. No leukocytosis. Recheck CBC. Sinus tachycardia-likely secondary to dehydration and hyper catabolic state from cancer Hyponatremia-stable Hypercalcemia of malignancy - Status post treatment with Aredia. Now resolved. Continue to monitor. 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 Hemoglobin stable.. Hypomagnesemia-replaced today Severe protein energy malnutrition As evidenced by a more low albumin of 1.5, patient not eating much due to location of cancer. Dietitian following, continue tube feeds. DO NOT RESUSCITATE, being filed the palliative care. GI prophylaxis: Lactinex, will add PPI. Prophylaxis: SCDs, continue Lovenox subcutaneously. Problem Qualifiers (1) Hypotension: Qualified Code: I95.9 - Hypotension, unspecified hypotension type Mamta Elias MD Jun 03, 2016 11:25
[2016-06-03] MEDS: CEFEPIME INJ 1,000 MG in SODIUM CHLORIDE 0.9% INJ 100 ML IV SCH ×2 (11:40→21:14)
[2016-06-03 11:41] LABS: AUTOMATED NEUTROPHIL # 4.5 TH/MM3 (1.8-7.7); BASOPHIL % 0.4 % (0.0-2.0); EOSINOPHIL % 0.3 % (0.0-4.0); HEMATOCRIT 24.9 % (39.0-51.0); HEMO FLAGS DIFF FINAL; LYMPH % 5.1 % (9.0-44.0); LYMPHOCYTE # 0.3 TH/MM3 (1.0-4.8); MEAN CELL VOLUME 87.8 FL (80.0-100.0); MEAN CORPUSCULAR HEMOGLOBIN 29.8 PG (27.0-34.0); MEAN CORPUSCULAR HGB CONC 33.9 % (32.0-36.0); MONO % 15.7 % (0.0-8.0); NEUT % 78.5 % (16.0-70.0); PLATELET COUNT 414 TH/MM3 (150-450); RED BLOOD COUNT 2.84 MIL/MM3 (4.50-5.90); RED CELL DISTRIBUTION WIDTH 15.3 % (11.6-17.2); WHITE BLOOD COUNT 5.7 TH/MM3 (4.0-11.0)
[2016-06-03 11:50] LABS: ALT (GPT) 11 U/L (12-78); ANION GAP 6 MEQ/L (5-15); AST (GOT) 13 U/L (15-37); BICARBONATE 27.2 MEQ/L (21.0-32.0); BLOOD UREA NITROGEN 7 MG/DL (7-18); CHLORIDE 100 MEQ/L (98-107); GLOMERULAR FILTRATION RATE 383 ML/MIN (>89); POTASSIUM 4.6 MEQ/L (3.5-5.1); SODIUM (NA) 133 MEQ/L (136-145)
[2016-06-03 12:00] VITALS: BP 97/57; PULSE 105; RESP 20; TEMP 99; O2SAT 96
[2016-06-03 12:00] LABS: ALKALINE PHOSPHATASE 96 U/L (45-117); TOTAL BILIRUBIN ADULT 0.2 MG/DL (0.2-1.0)
[2016-06-03] MEDS ORDERED: PHARMACY ORDERED LAB ONE (12:45)
--- NOTE | 2016-06-03 14:49 | RADRPT ---
EXAM DATE/TIME: 06/03/2016 13:55 [facility] COMPARISON: CT PULMONARY ANGIOGRAM, June 01, 2016, 16:48. INDICATIONS : Cough for the past few days. MEDICAL HISTORY : Carcinoma, basal cell. SURGICAL HISTORY : None. ENCOUNTER: Subsequent ACUITY: 2 days PAIN SCORE: Non-responsive. LOCATION: Bilateral chest FINDINGS: The study is abnormal with patchy bibasilar parenchymal changes evident, worse in the left base than the right. These were nodular by CT scan and were suspicious for metastatic disease. Patchy inflammatory process could give a similar appearance. CONCLUSION: Abnormal chest x-ray as described above. There appears to be minimal improvement from the CT scan of 05/22/2016. Cornelio Negrete MD FACR on June 03, 2016 at 14:12 Board Certified Radiologist. This report was verified electronically.
[2016-06-03 16:00] VITALS: BP 98/61; PULSE 110; RESP 20; TEMP 98.8; O2SAT 97
[2016-06-03] MEDS: ENOXAPARIN SODIUM 30 MG/0.3 ML SYRINGE SQ SCH (16:53)
[2016-06-03 20:00] VITALS: BP 107/55; PULSE 114; RESP 22; TEMP 96.3; O2SAT 97
[2016-06-04] VITALS: BP 99/57; PULSE 109; RESP 21; TEMP 98; O2SAT 97
[2016-06-04] MEDS: ACETAMINOPHEN 325MG/HYDROcodone 7.5MG/15ML UDC PO PRN ×3 (03:54→23:12)
[2016-06-04] MEDS: CEFEPIME INJ 1,000 MG in SODIUM CHLORIDE 0.9% INJ 100 ML IV SCH ×3 (03:54→23:12)
[2016-06-04] MEDS: FREE WATER G-TUBE SCH ×4 (03:55→23:16)
[2016-06-04 04:00] VITALS: BP 105/59; PULSE 102; RESP 22; TEMP 97.8; O2SAT 96
[2016-06-04] MEDS: metroNIDAZOLE 500 MG TAB PO SCH ×3 (06:00→23:13)
[2016-06-04] MEDS: METOCLOPRAMIDE HCL SYRUP 10 MG/10 ML UDC G-TUBE SCH ×4 (07:00→23:14)
[2016-06-04 08:00] VITALS: BP 93/59; PULSE 112; RESP 20; TEMP 98.3; O2SAT 97
[2016-06-04] MEDS: SILVER SULFADIAZINE 1% CR 50 GM JAR TOPICAL SCH ×2 (09:55→21:00)
[2016-06-04] MEDS: SODIUM CHLORIDE 0.9% FLUSH 5 ML FLUSH IVF SCH ×2 (09:55→21:00)
[2016-06-04] MEDS: MAGNESIUM OXIDE 400 MG TAB GT SCH ×2 (09:55→23:14)
[2016-06-04] MEDS: MUPIROCIN 2% OINT 22 GM TUBE TOPICAL SCH ×2 (09:55→21:00)
[2016-06-04] MEDS: FLUCONAZOLE 200 MG TAB PO SCH (09:55)
[2016-06-04] MEDS: POTASSIUM PHOSPHATE MONOBASIC 500 MG TAB PO SCH ×2 (09:55→21:00)
[2016-06-04] MEDS: POTASSIUM CHLORIDE 25 MEQ EFFERVESCENT TAB NG SCH ×2 (09:55→21:00)
[2016-06-04] MEDS: LACTOBACILLUS ACIDOPHILUS TAB PO SCH ×3 (09:55→16:51)
[2016-06-04 12:00] VITALS: BP 95/59; PULSE 121; RESP 20; TEMP 99.2; O2SAT 98
--- NOTE | 2016-06-04 14:02 | HHI.PR ---
Subjective Remarks Patient still feels short of breath, also has a lot of nasal congestion and sneezing clotted blood, discussed with RN. History done through airport control operator chery Objective Vitals Vital Signs Date Time Temp Pulse Resp B/P Pulse Ox O2 Delivery O2 Flow Rate FiO2 06/04/16 12:00 99.2 121 20 95/59 98 06/04/16 08:00 98.3 112 20 93/59 97 06/04/16 06:30 16 06/04/16 04:00 97.8 102 22 105/59 96 06/04/16 00:00 98.0 109 21 99/57 97 06/03/16 20:00 96.3 114 22 107/55 97 06/03/16 16:00 98.8 110 20 98/61 97 I/O 06/03/16 06/03/16 06/03/16 06/04/16 06/04/16 06/04/16 07:00 15:00 23:00 07:00 15:00 23:00 Intake Total 2190 ml Balance 2190 ml IV Total 1750 ml Tube Feeding 240 ml Other 200 ml # Voids 1 2 1 Result Diagram: 06/03/16 1112 06/03/16 1122 Objective Remarks Not in distress, cachectic appears ill Bloody/brownish nasal discharge HEENT: large ulcerating exophytic mass on the right side of the face. mouth is partial shut. Lips cracked. Borderline tachycardic, no murmurs Occasional arousals, no wheezing. Abdomen soft, mildly tender, PEG tube site with mild erythema and purulent discharge No edema Alert awake and oriented 3. 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: Chronic (9) Electrolyte abnormality ICD Code: E87.8 Status: Resolved (10) Severe protein-calorie malnutrition ICD Code: E43 Status: Acute (11) Constipation ICD Code: K59.00 Status: Resolved (12) DNR no code (do not resuscitate) ICD Code: Z66 Status: Acute (13) Palliative care patient ICD Code: Z51.5 Status: Acute (14) Hypomagnesemia ICD Code: E83.42 Status: Resolved (15) Nausea ICD Code: R11.0 Status: Resolved (16) Radiation-induced dermatitis ICD Code: L58.9 Status: Acute (17) 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: Acute (18) Hypotension ICD Code: I95.9 Status: Acute (19) Chest pain ICD Code: R07.9 Status: Acute (20) Infection of PEG site ICD Code: K94.22 Status: Acute Assessment and Plan This is a 35-year-old male who had developed a facial mass since June 2014 but remained treated from [facility]. Facial mass secondary to Squamous cell carcinoma of the oropharynx - CT of the face showed very large heterogeneous soft tissue mass along the right side of the face with gross destruction involving most of the right mandible. Probable Metastatic Disease to the Abdomen and Lung/Liver. 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 Per medical oncology, resection not possible at this moment. No debulking surgery for now because of risk of bleeding. As per oncology it is best to wait 12 weeks after radiation therapy and chemotherapy is done and then obtain a PET scan to see if there is any active tumor activity. Continue management as per oncology with chemotherapy and radiotherapy. Shortness of breath-repeat chest x-ray reviewed, unchanged. No leukocytosis, IVF stopped. Could be secondary to fluid overload versus metastatic disease to the lungs. No desaturation. Stop vancomycin, continue cefepime, switched to Bactrim in a few days. Nasal congestion-start oxymetazoline. Chest pain- likely secondary to pulmonary metastatic lesions and lesions in the sternum. CT scan of the chest done, no pulmonary embolism but showed metastatic lesion to the sternum. This was communicated well with the patient and patient's brother through a airport control operator. EKGs negative other than sinus rhythm with no ischemic changes. PEG tube site infection-erythema and discharge present, wound culture growing Escherichia coli, continue cefepime switch to Bactrim in 1-2 days, continue mupirocin. 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 Continue oral hygiene. Sepsis secondary to bloodstream infection-1 blood culture bottle grew Pseudomonas stutzeri. Status post Zosyn. Repeat blood cultures negative, also on Flagyl and oral fluconazole per surgery. No leukocytosis. CBC stable Sinus tachycardia-likely secondary to dehydration and hyper catabolic state from cancer Hyponatremia-stable Hypercalcemia of malignancy - Status post treatment with Aredia. Now resolved. Continue to monitor. 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 Hemoglobin stable.. Hypomagnesemia-replaced today Severe protein energy malnutrition As evidenced by a more low albumin of 1.5, patient not eating much due to location of cancer. Dietitian following, continue tube feeds. DO NOT RESUSCITATE, being filed the palliative care. GI prophylaxis: Lactinex, will add PPI. Prophylaxis: SCDs, continue Lovenox subcutaneously. Problem Qualifiers (1) Hypotension: Qualified Code: I95.9 - Hypotension, unspecified hypotension type Mamta Elias MD Jun 04, 2016 14:01
[2016-06-04] MEDS: OXYMETAZOLINE HCL 0.05% 15 ML NASAL SPRAY NASAL SCH ×2 (15:14→21:00)
[2016-06-04 16:00] VITALS: BP 100/63; PULSE 109; RESP 20; TEMP 96.3; O2SAT 96
[2016-06-04] MEDS: ENOXAPARIN SODIUM 30 MG/0.3 ML SYRINGE SQ SCH (16:51)
[2016-06-04 20:00] VITALS: BP 96/59; PULSE 118; RESP 23; TEMP 100.7; O2SAT 97
[2016-06-05] VITALS: BP 105/58; PULSE 121; RESP 24; TEMP 99.7; O2SAT 96
[2016-06-05 04:00] VITALS: TEMP 98.6
[2016-06-05] MEDS: CEFEPIME INJ 1,000 MG in SODIUM CHLORIDE 0.9% INJ 100 ML IV SCH ×3 (04:00→19:55)
[2016-06-05] MEDS: FREE WATER G-TUBE SCH ×3 (06:00→18:00)
[2016-06-05 08:00] VITALS: BP 97/63; PULSE 108; RESP 20; TEMP 97.4; O2SAT 96
[2016-06-05 08:03] LABS: INTERNATIONAL NORMALIZED RATIO 1.3 RATIO
[2016-06-05 08:14] LABS: ALKALINE PHOSPHATASE 108 U/L (45-117); ALT (GPT) 11 U/L (12-78); ANION GAP 10 MEQ/L (5-15); AST (GOT) 12 U/L (15-37); BICARBONATE 29.5 MEQ/L (21.0-32.0); BLOOD UREA NITROGEN 13 MG/DL (7-18); CHLORIDE 97 MEQ/L (98-107); GLOMERULAR FILTRATION RATE 400 ML/MIN (>89); MAGNESIUM 1.7 MG/DL (1.5-2.5); SODIUM (NA) 136 MEQ/L (136-145); TOTAL BILIRUBIN ADULT 0.2 MG/DL (0.2-1.0)
[2016-06-05] MEDS: METOCLOPRAMIDE HCL SYRUP 10 MG/10 ML UDC G-TUBE SCH ×4 (08:26→22:38)
[2016-06-05] MEDS: metroNIDAZOLE 500 MG TAB PO SCH ×3 (08:26→22:38)
[2016-06-05] MEDS: SODIUM CHLORIDE 0.9% FLUSH 5 ML FLUSH IVF SCH ×2 (09:00→21:00)
[2016-06-05] MEDS: MUPIROCIN 2% OINT 22 GM TUBE TOPICAL SCH ×2 (09:00→22:40)
[2016-06-05] MEDS: SILVER SULFADIAZINE 1% CR 50 GM JAR TOPICAL SCH ×2 (09:00→22:40)
[2016-06-05] MEDS: LACTOBACILLUS ACIDOPHILUS TAB PO SCH ×3 (10:00→18:00)
[2016-06-05] MEDS: OXYMETAZOLINE HCL 0.05% 15 ML NASAL SPRAY NASAL SCH ×2 (10:01→22:39)
[2016-06-05] MEDS: POTASSIUM CHLORIDE 25 MEQ EFFERVESCENT TAB NG SCH ×2 (10:01→22:37)
[2016-06-05] MEDS: POTASSIUM PHOSPHATE MONOBASIC 500 MG TAB PO SCH ×2 (10:01→22:39)
[2016-06-05] MEDS: MAGNESIUM OXIDE 400 MG TAB GT SCH ×2 (10:01→22:38)
[2016-06-05] MEDS: FLUCONAZOLE 200 MG TAB PO SCH (10:01)
--- NOTE | 2016-06-05 11:31 | HHI.PR ---
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 06/05 Seen in his bedroom in the presence of his brother and nurse Miss Aragon appreciated, No nausea vomit or diarrhea, continue antibiotics Cefepime, Fluconazole, Flagyl. More than 25 minutes talking with patient and his Brother. Objective Vital Signs Date Time Temp Pulse Resp B/P Pulse Ox O2 Delivery O2 Flow Rate FiO2 06/05/16 08:00 97.4 108 20 97/63 96 06/05/16 04:00 98.6 06/05/16 00:21 18 06/05/16 00:00 99.7 121 24 105/58 96 06/04/16 20:00 100.7 118 23 96/59 97 06/04/16 16:00 96.3 109 20 100/63 96 06/04/16 12:00 99.2 121 20 95/59 98 I/O 06/04/16 06/04/16 06/04/16 06/05/16 06/05/16 06/05/16 07:00 15:00 23:00 07:00 15:00 23:00 Intake Total 0 ml 0 ml Balance 0 ml 0 ml Intake Oral 0 ml 0 ml # Voids 1 3 2 1 Result Diagram: 06/03/16 1112 06/05/16 0620 Imaging Last Impressions Chest X-Ray 06/03/16 0000 Signed Impressions: Service Date/Time: Friday, June 03, 2016 13:55 - CONCLUSION: Abnormal chest x-ray as described above. There appears to be minimal improvement from the CT scan of 05/22/2016. Cornelio Negrete MD FACR CT Angiography 06/01/16 0000 Signed Impressions: Service Date/Time: May 16:48 - CONCLUSION: 1. No evidence of pulmonary embolus. 2. Numerous bilateral pulmonary nodules indicating pulmonary metastatic disease. 3. Destructive lucent bone lesion in the sternum indicating metastatic disease. 4. 2 cm nonspecific hypodense lesion in the left lobe of the liver. 5. Mildly enlarged hilar lymph nodes bilaterally. Prabhu Jang MD Liver Ultrasound 04/12/16 0000 Signed Impressions: Service Date/Time: Tuesday, April 12, 2016 22:29 - CONCLUSION: 1. Solid indeterminate mass in the left lobe of the liver as well as a tiny cyst. An MRI of the abdomen with without contrast may be helpful for further assessment if felt clinically warranted. The possibility of a metastatic lesion is not excluded. 2. Cholelithiasis. 3. Bilateral pleural effusions are suspected sonographically. Chau Ward MD Chest CT 04/11/16 0000 Signed Impressions: Service Date/Time: Monday, April 11, 2016 14:09 - CONCLUSION: 1. Multiple small scattered noncalcified pulmonary nodules which are nonspecific but are of concern for early metastatic disease. 2. The known large tumor mass in the right side of the face and neck is partially visualized with destructive change involving the right side of the mandible. This extends into the right supraclavicular region. Please see soft tissue neck CT for further details. 3. Low attenuation lesion in the left lobe of the liver again noted. Holland Villegas MD Abdomen/Pelvis CT 04/11/16 0000 Signed Impressions: Service Date/Time: Monday, April 11, 2016 14:09 - CONCLUSION: 1. 1.4 cm low-attenuation lesion left lobe of the liver of concern for a metastasis. There is a smaller more cystic appearing structure in the right lobe. 2. The remainder of the study is unremarkable except for a PEG tube in the stomach. Holland Villegas MD Upper Extremity Ultrasound 04/08/16 0000 Signed Impressions: Service Date/Time: Friday, April 08, 2016 13:04 - CONCLUSION: No thrombus. Deshawn Michele MD Neck CT 04/02/16 0000 Signed Impressions: Service Date/Time: Saturday, April 02, 2016 11:54 - CONCLUSION: Very large heterogeneous soft tissue mass along the right side of the face with gross destruction involving most of the right mandible. The mass contains amorphous calcifications and appears to involve the right sternocleidomastoid muscle. The mass appears to extend into the oral cavity with diffuse enlargement of the right tonsillar pillar. Neoplastic disease in the primary consideration. Niall Corrales MD Multiplanar Reconstruction 04/02/16 0000 Signed Impressions: Service Date/Time: Saturday, April 02, 2016 11:54 - CONCLUSION: 3-D reconstructive images demonstrating destruction involving most the right side of the mandible. Niall Corrales MD Head CT 04/02/16 0000 Signed Impressions: Service Date/Time: Saturday, April 02, 2016 11:54 - CONCLUSION: 1. Unremarkable CT scan of the brain 2. Large abnormal soft tissue mass with calcifications along the right side of the face. Niall Corrales MD Procedures central line placement PEG placement bone biopsy teeth extraction Radiation therapy Chemotherapy Other Results Laboratory Tests Test 06/03/16 06/03/16 06/05/16 11:12 11:22 06:20 White Blood Count 5.7 TH/MM3 Red Blood Count 2.84 MIL/MM3 Hemoglobin 8.5 GM/DL Hematocrit 24.9 % Mean Corpuscular Volume 87.8 FL Mean Corpuscular Hemoglobin 29.8 PG Mean Corpuscular Hemoglobin 33.9 % Concent Red Cell Distribution Width 15.3 % Platelet Count 414 TH/MM3 Mean Platelet Volume 5.8 FL Neutrophils (%) (Auto) 78.5 % Lymphocytes (%) (Auto) 5.1 % Monocytes (%) (Auto) 15.7 % Eosinophils (%) (Auto) 0.3 % Basophils (%) (Auto) 0.4 % Neutrophils # (Auto) 4.5 TH/MM3 Lymphocytes # (Auto) 0.3 TH/MM3 Monocytes # (Auto) 0.9 TH/MM3 Eosinophils # (Auto) 0.0 TH/MM3 Basophils # (Auto) 0.0 TH/MM3 CBC Comment DIFF FINAL Differential Comment Vancomycin Level Trough 12.2 MCG/ML Prothrombin Time 14.0 SEC Prothromb Time International 1.3 RATIO Ratio Sodium Level 136 MEQ/L Potassium Level 4.0 MEQ/L Chloride Level 97 MEQ/L Carbon Dioxide Level 29.5 MEQ/L Anion Gap 10 MEQ/L Blood Urea Nitrogen 13 MG/DL Creatinine 0.26 MG/DL Estimat Glomerular Filtration 400 ML/MIN Rate Random Glucose 96 MG/DL Calcium Level 9.2 MG/DL Phosphorus Level 3.5 MG/DL Magnesium Level 1.7 MG/DL Total Bilirubin 0.2 MG/DL Aspartate Amino Transf 12 U/L (AST/SGOT) Alanine Aminotransferase 11 U/L (ALT/SGPT) Alkaline Phosphatase 108 U/L Total Protein 5.5 GM/DL Albumin 1.8 GM/DL Triglycerides Level 74 MG/DL Objective Remarks General: No acute Distress. HEENT: large ulcerating mass on his right facial area dressed at this time. CV RRR. no r/m/g Resp CTA B/L Abd soft NDNT EXT: no edema Medications and IVs Current Medications Medications (Trade) Dose Ordered Sig/Sara Route Start Time Stop Time Status Last Admin (Zofran Inj) 4 mg Q6H PRN IV PUSH 04/02/16 01:45 05/17/16 09:01 (NS Flush) 2 ml UNSCH PRN IVF 04/02/16 08:15 05/22/16 06:26 (NS Flush) 2 ml BID IVF 04/02/16 09:00 06/05/16 09:00 (Benadryl) 25 mg Q6H PRN PO 04/02/16 09:00 05/17/16 11:32 (Lovenox Inj) 30 mg Q24H SQ 04/04/16 15:30 06/04/16 16:51 (Free Water) VOLUME: 200 ML Q6HR G-TUBE 04/04/16 08:45 06/05/16 06:00 (Tylenol) 650 mg Q4H PRN PO 04/07/16 01:45 05/21/16 17:02 (Morphine Inj) 2 mg Q2HR PRN IV PUSH 04/08/16 09:00 05/17/16 15:00 (Hycet 325-7.5 Mg Liq) 15 ml Q3HR PRN PO 04/08/16 14:45 06/04/16 23:12 (Colace Liq) 100 mg BID PRN GT 04/15/16 12:15 05/11/16 05:08 (Lactulose Liq) 30 ml TID PRN G-TUBE 04/15/16 12:15 (Dulcolax Supp) 10 mg DAILY PRN CA 04/15/16 12:15 (Milk Of Magnesia Liq) 30 ml Q6H PRN GT 04/15/16 12:15 (Chapstick) 1 applic UNSCH PRN TOP 04/17/16 10:00 04/18/16 00:01 (Mag-Ox) 800 mg Q12HR GT 04/17/16 21:00 06/05/16 10:01 (Reglan Liq) 10 mg ACHS G-TUBE 04/19/16 16:00 06/05/16 10:00 (K-Phos) 500 mg Q12HR PO 04/24/16 12:00 06/05/16 10:01 (Lactinex) 1 tab TID PO 04/24/16 18:00 06/05/16 10:00 (Benadryl Inj) 25 mg Q4H PRN IV 04/26/16 19:00 05/26/16 11:43 (Diflucan) 200 mg DAILY PO 05/01/16 15:45 06/05/16 10:01 (Flagyl) 500 mg Q8HR PO 05/01/16 22:00 06/05/16 08:26 (K-Lyte Cl Eff) 40 meq Q12HR NG 05/04/16 22:00 06/05/16 10:01 (Magic Mouthwash Adult Liq) 5 ml QID PRN SWISH-SWAL 05/21/16 11:00 (Miralax) 17 gm DAILY PRN G-TUBE 05/21/16 11:00 (Silvadene 1% Cream (50 Gm)) 1 applic Q12HR TOPICAL 05/21/16 12:00 06/04/16 09:55 Mupirocin 1 applic 1 applic Q12HR TOPICAL 06/01/16 10:30 06/04/16 09:55 (Maxipime Inj/NS Inj) 100 ml @ 200 mls/hr Q8H IV 06/03/16 12:00 06/05/16 04:00 (Afrin 0.05% Dilip [place]) 2 spray Q12HR NASAL 06/04/16 13:58 06/05/16 10:01 A/P Problem List: (1) Radiation-induced dermatitis ICD Code: L58.9 (2) 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 (3) 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 Squamous Cell Carcinoma of Oropharynx, CT of the face showed very large heterogeneous soft tissue mass along the right side of the face with gross destruction involving most of the right mandible. Probable Metastatic Disease to the Abdomen and Lung/Liver. 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 continue Radiation therapy and Chemotherapy as per mission assessment specialist. and Radiation specialist following. Not possible resection at this time, recommended to wait 12 weeks and obtain PET scan and continue management as per Oncology with chemotherapy and Radiation therapy 2. Stomatitis and Mucositis, Improving with local care. 3. Sepsis one bottle of blood cultures, growing Pseudomonas Stutzeri. right facial wound and central line suspected source. Central line discontinued. was on Levofloxacin switched to Augmentin plus Flagyl and continue Fluconazole. Antibiotics handled by Attending physician, do not want ID specialist on the case. 4. 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 today 135 5. Hypercalcemia of malignancy, status post treatment with Aredia. resolved 6. Anemia secondary to Chemotherapy, Status post Blood transfusion. Hemoglobin 8.5 7. Severe Protein Calorie Malnutrition, status post PEG placement tube feedings 8. Constipation continue Colace, MiraLAX and Lactulose 9. Nasal congestion-start oxymetazoline. 10. PEG tube site infection, -wound culture growing Escherichia coli, continue cefepime switch to Bactrim in 1-2 days, continue mupirocin. 11. Sepsis secondary to bloodstream infection-1 blood culture bottle grew Pseudomonas stutzeri. Status post Zosyn. Repeat blood cultures negative, also on Flagyl and oral fluconazole per surgery. No leukocytosis. CBC stable DVT prophylaxis with Lovenox. Code status DNR Discussed with patient and his Brother also nurse Miss Aragon in the room. GI prophylaxis: Lactinex and PPI. Poor Short Term prognosis. Discharge Planning As per Attending physician. Richie Devries MD Jun 05, 2016 11:31
[2016-06-05 12:00] VITALS: BP 116/64; PULSE 111; RESP 20; TEMP 97.9; O2SAT 97
[2016-06-05] MEDS: ENOXAPARIN SODIUM 30 MG/0.3 ML SYRINGE SQ SCH (14:53)
[2016-06-05] MEDS: ACETAMINOPHEN 325MG/HYDROcodone 7.5MG/15ML UDC PO PRN ×2 (15:19→22:48)
[2016-06-05 16:00] VITALS: BP 100/64; PULSE 145; RESP 20; TEMP 97.7; O2SAT 96
[2016-06-05 20:00] VITALS: BP 98/53; PULSE 101; RESP 16; TEMP 96.1; O2SAT 97
[2016-06-06] VITALS: BP 94/59; PULSE 120; RESP 18; TEMP 97.8; O2SAT 94
[2016-06-06] MEDS: CEFEPIME INJ 1,000 MG in SODIUM CHLORIDE 0.9% INJ 100 ML IV SCH ×3 (03:37→20:31)
[2016-06-06 04:00] VITALS: BP 89/52; PULSE 101; RESP 18; TEMP 97.1; O2SAT 98
[2016-06-06] MEDS: METOCLOPRAMIDE HCL SYRUP 10 MG/10 ML UDC G-TUBE SCH ×4 (05:40→20:33)
[2016-06-06] MEDS: metroNIDAZOLE 500 MG TAB PO SCH ×3 (05:40→20:34)
[2016-06-06] MEDS: FREE WATER G-TUBE SCH ×4 (05:44→17:00)
[2016-06-06 08:00] VITALS: BP 92/67; PULSE 115; RESP 16; TEMP 98.3; O2SAT 96
--- NOTE | 2016-06-06 08:05 | HHI.PR ---
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 06/05 Seen in his bedroom in the presence of his brother and nurse Miss Aragon appreciated, No nausea vomit or diarrhea, continue antibiotics Cefepime, Fluconazole, Flagyl. 06/06 No complaint, weak, afebrile, tachycardia, seen in the presence of his Brother and nurse Miss Aragon Objective Vital Signs Date Time Temp Pulse Resp B/P Pulse Ox O2 Delivery O2 Flow Rate FiO2 06/06/16 04:00 97.1 101 18 89/52 98 06/06/16 00:00 97.8 120 18 94/59 94 06/05/16 20:00 96.1 101 16 98/53 97 06/05/16 16:00 97.7 145 20 100/64 96 06/05/16 12:00 97.9 111 20 116/64 97 I/O 06/05/16 06/05/16 06/05/16 06/06/16 06/06/16 06/06/16 07:00 15:00 23:00 07:00 15:00 23:00 Intake Total 0 ml 1080 ml 246 ml Balance 0 ml 1080 ml 246 ml Intake Oral 0 ml IV Total 100 ml 246 ml Tube Feeding 480 ml Other 500 ml # Voids 1 4 1 # Bowel Movements 2 1 Result Diagram: 06/03/16 1112 06/05/16 0620 Imaging Last Impressions Chest X-Ray 06/03/16 0000 Signed Impressions: Service Date/Time: Friday, June 03, 2016 13:55 - CONCLUSION: Abnormal chest x-ray as described above. There appears to be minimal improvement from the CT scan of 05/22/2016. Cornelio Negrete MD FACR CT Angiography 06/01/16 0000 Signed Impressions: Service Date/Time: May 16:48 - CONCLUSION: 1. No evidence of pulmonary embolus. 2. Numerous bilateral pulmonary nodules indicating pulmonary metastatic disease. 3. Destructive lucent bone lesion in the sternum indicating metastatic disease. 4. 2 cm nonspecific hypodense lesion in the left lobe of the liver. 5. Mildly enlarged hilar lymph nodes bilaterally. Prabhu Jang MD Liver Ultrasound 04/12/16 0000 Signed Impressions: Service Date/Time: Tuesday, April 12, 2016 22:29 - CONCLUSION: 1. Solid indeterminate mass in the left lobe of the liver as well as a tiny cyst. An MRI of the abdomen with without contrast may be helpful for further assessment if felt clinically warranted. The possibility of a metastatic lesion is not excluded. 2. Cholelithiasis. 3. Bilateral pleural effusions are suspected sonographically. Chau Ward MD Chest CT 04/11/16 0000 Signed Impressions: Service Date/Time: Monday, April 11, 2016 14:09 - CONCLUSION: 1. Multiple small scattered noncalcified pulmonary nodules which are nonspecific but are of concern for early metastatic disease. 2. The known large tumor mass in the right side of the face and neck is partially visualized with destructive change involving the right side of the mandible. This extends into the right supraclavicular region. Please see soft tissue neck CT for further details. 3. Low attenuation lesion in the left lobe of the liver again noted. Holland Villegas MD Abdomen/Pelvis CT 04/11/16 0000 Signed Impressions: Service Date/Time: Monday, April 11, 2016 14:09 - CONCLUSION: 1. 1.4 cm low-attenuation lesion left lobe of the liver of concern for a metastasis. There is a smaller more cystic appearing structure in the right lobe. 2. The remainder of the study is unremarkable except for a PEG tube in the stomach. Holland Villegas MD Upper Extremity Ultrasound 04/08/16 0000 Signed Impressions: Service Date/Time: Friday, April 08, 2016 13:04 - CONCLUSION: No thrombus. Deshawn Michele MD Neck CT 04/02/16 0000 Signed Impressions: Service Date/Time: Saturday, April 02, 2016 11:54 - CONCLUSION: Very large heterogeneous soft tissue mass along the right side of the face with gross destruction involving most of the right mandible. The mass contains amorphous calcifications and appears to involve the right sternocleidomastoid muscle. The mass appears to extend into the oral cavity with diffuse enlargement of the right tonsillar pillar. Neoplastic disease in the primary consideration. Niall Corrales MD Multiplanar Reconstruction 04/02/16 0000 Signed Impressions: Service Date/Time: Saturday, April 02, 2016 11:54 - CONCLUSION: 3-D reconstructive images demonstrating destruction involving most the right side of the mandible. Niall Corrales MD Head CT 04/02/16 0000 Signed Impressions: Service Date/Time: Saturday, April 02, 2016 11:54 - CONCLUSION: 1. Unremarkable CT scan of the brain 2. Large abnormal soft tissue mass with calcifications along the right side of the face. Niall Corrales MD Procedures central line placement PEG placement bone biopsy teeth extraction Radiation therapy Chemotherapy Other Results Laboratory Tests Test 06/03/16 06/03/16 06/05/16 11:12 11:22 06:20 White Blood Count 5.7 TH/MM3 Red Blood Count 2.84 MIL/MM3 Hemoglobin 8.5 GM/DL Hematocrit 24.9 % Mean Corpuscular Volume 87.8 FL Mean Corpuscular Hemoglobin 29.8 PG Mean Corpuscular Hemoglobin 33.9 % Concent Red Cell Distribution Width 15.3 % Platelet Count 414 TH/MM3 Mean Platelet Volume 5.8 FL Neutrophils (%) (Auto) 78.5 % Lymphocytes (%) (Auto) 5.1 % Monocytes (%) (Auto) 15.7 % Eosinophils (%) (Auto) 0.3 % Basophils (%) (Auto) 0.4 % Neutrophils # (Auto) 4.5 TH/MM3 Lymphocytes # (Auto) 0.3 TH/MM3 Monocytes # (Auto) 0.9 TH/MM3 Eosinophils # (Auto) 0.0 TH/MM3 Basophils # (Auto) 0.0 TH/MM3 CBC Comment DIFF FINAL Differential Comment Vancomycin Level Trough 12.2 MCG/ML Prothrombin Time 14.0 SEC Prothromb Time International 1.3 RATIO Ratio Sodium Level 136 MEQ/L Potassium Level 4.0 MEQ/L Chloride Level 97 MEQ/L Carbon Dioxide Level 29.5 MEQ/L Anion Gap 10 MEQ/L Blood Urea Nitrogen 13 MG/DL Creatinine 0.26 MG/DL Estimat Glomerular Filtration 400 ML/MIN Rate Random Glucose 96 MG/DL Calcium Level 9.2 MG/DL Phosphorus Level 3.5 MG/DL Magnesium Level 1.7 MG/DL Total Bilirubin 0.2 MG/DL Aspartate Amino Transf 12 U/L (AST/SGOT) Alanine Aminotransferase 11 U/L (ALT/SGPT) Alkaline Phosphatase 108 U/L Total Protein 5.5 GM/DL Albumin 1.8 GM/DL Triglycerides Level 74 MG/DL Objective Remarks General: No acute Distress. HEENT: large ulcerating mass on his right facial area dressed at this time. CV RRR. no r/m/g Resp CTA B/L Abd soft NDNT EXT: no edema Medications and IVs Current Medications Medications (Trade) Dose Ordered Sig/Sara Route Start Time Stop Time Status Last Admin (Zofran Inj) 4 mg Q6H PRN IV PUSH 04/02/16 01:45 05/17/16 09:01 (NS Flush) 2 ml UNSCH PRN IVF 04/02/16 08:15 05/22/16 06:26 (NS Flush) 2 ml BID IVF 04/02/16 09:00 06/05/16 21:00 (Benadryl) 25 mg Q6H PRN PO 04/02/16 09:00 05/17/16 11:32 (Lovenox Inj) 30 mg Q24H SQ 04/04/16 15:30 06/05/16 14:53 (Free Water) VOLUME: 200 ML Q6HR G-TUBE 04/04/16 08:45 06/06/16 05:44 (Tylenol) 650 mg Q4H PRN PO 04/07/16 01:45 05/21/16 17:02 (Morphine Inj) 2 mg Q2HR PRN IV PUSH 04/08/16 09:00 05/17/16 15:00 (Hycet 325-7.5 Mg Liq) 15 ml Q3HR PRN PO 04/08/16 14:45 06/05/16 22:48 (Colace Liq) 100 mg BID PRN GT 04/15/16 12:15 05/11/16 05:08 (Lactulose Liq) 30 ml TID PRN G-TUBE 04/15/16 12:15 (Dulcolax Supp) 10 mg DAILY PRN VT 04/15/16 12:15 (Milk Of Magnesia Liq) 30 ml Q6H PRN GT 04/15/16 12:15 (Chapstick) 1 applic UNSCH PRN TOP 04/17/16 10:00 04/18/16 00:01 (Mag-Ox) 800 mg Q12HR GT 04/17/16 21:00 06/05/16 22:38 (Reglan Liq) 10 mg ACHS G-TUBE 04/19/16 16:00 06/06/16 05:40 (K-Phos) 500 mg Q12HR PO 04/24/16 12:00 06/05/16 22:39 (Lactinex) 1 tab TID PO 04/24/16 18:00 06/05/16 18:00 (Benadryl Inj) 25 mg Q4H PRN IV 04/26/16 19:00 05/26/16 11:43 (Diflucan) 200 mg DAILY PO 05/01/16 15:45 06/05/16 10:01 (Flagyl) 500 mg Q8HR PO 05/01/16 22:00 06/06/16 05:40 (K-Lyte Cl Eff) 40 meq Q12HR NG 05/04/16 22:00 06/05/16 22:37 (Magic Mouthwash Adult Liq) 5 ml QID PRN SWISH-SWAL 05/21/16 11:00 (Miralax) 17 gm DAILY PRN G-TUBE 05/21/16 11:00 (Silvadene 1% Cream (50 Gm)) 1 applic Q12HR TOPICAL 05/21/16 12:00 06/05/16 22:40 Mupirocin 1 applic 1 applic Q12HR TOPICAL 06/01/16 10:30 06/05/16 22:40 (Maxipime Inj/NS Inj) 100 ml @ 200 mls/hr Q8H IV 06/03/16 12:00 06/06/16 03:37 (Afrin 0.05% Dilip [place]) 2 spray Q12HR NASAL 06/04/16 13:58 06/05/16 22:39 A/P Problem List: (1) Radiation-induced dermatitis ICD Code: L58.9 (2) 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 (3) 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 Squamous Cell Carcinoma of Oropharynx, CT of the face showed very large heterogeneous soft tissue mass along the right side of the face with gross destruction involving most of the right mandible. Probable Metastatic Disease to the Abdomen and Lung/Liver. 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 continue Radiation therapy and Chemotherapy as per international trade specialist. and Radiation specialist following. Not possible resection at this time, recommended to wait 12 weeks and obtain PET scan and continue management as per Oncology with chemotherapy and Radiation therapy 2. Stomatitis and Mucositis, Improving with local care. 3. Sepsis one bottle of blood cultures, growing Pseudomonas Stutzeri. right facial wound and central line suspected source. Central line discontinued. was on Levofloxacin switched to Augmentin plus Flagyl and continue Fluconazole. Antibiotics handled by Attending physician, do not want ID specialist on the case. 4. 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 today 135 5. Hypercalcemia of malignancy, status post treatment with Aredia. resolved 6. Anemia secondary to Chemotherapy, Status post Blood transfusion. Hemoglobin 8.5 7. Severe Protein Calorie Malnutrition, status post PEG placement tube feedings 8. Constipation continue Colace, MiraLAX and Lactulose 9. Nasal congestion-start oxymetazoline. 10. PEG tube site infection, -wound culture growing Escherichia coli, continue cefepime switch to Bactrim in 1-2 days, continue mupirocin. 11. Sepsis secondary to bloodstream infection-1 blood culture bottle grew Pseudomonas stutzeri. Status post Zosyn. Repeat blood cultures negative, also on Flagyl and oral fluconazole per surgery. No leukocytosis. CBC stable DVT prophylaxis with Lovenox. Code status DNR Discussed with patient and his Brother also nurse Miss Aragon in the room. GI prophylaxis: Lactinex and PPI. Poor Short Term prognosis. Discharge Planning As per Attending physician. Richie Devries MD Jun 06, 2016 08:05
[2016-06-06] MEDS: MUPIROCIN 2% OINT 22 GM TUBE TOPICAL SCH ×2 (09:00→20:34)
[2016-06-06] MEDS: SODIUM CHLORIDE 0.9% FLUSH 5 ML FLUSH IVF SCH ×2 (09:00→20:40)
[2016-06-06] MEDS: SILVER SULFADIAZINE 1% CR 50 GM JAR TOPICAL SCH ×2 (09:00→20:34)
[2016-06-06] MEDS: POTASSIUM CHLORIDE 25 MEQ EFFERVESCENT TAB NG SCH ×2 (10:34→20:32)
[2016-06-06] MEDS: POTASSIUM PHOSPHATE MONOBASIC 500 MG TAB PO SCH ×2 (10:34→20:34)
[2016-06-06] MEDS: LACTOBACILLUS ACIDOPHILUS TAB PO SCH ×3 (10:34→17:00)
[2016-06-06] MEDS: MAGNESIUM OXIDE 400 MG TAB GT SCH ×2 (10:34→20:33)
[2016-06-06] MEDS: FLUCONAZOLE 200 MG TAB PO SCH (10:34)
[2016-06-06] MEDS: OXYMETAZOLINE HCL 0.05% 15 ML NASAL SPRAY NASAL SCH ×2 (10:35→20:34)
[2016-06-06 12:00] VITALS: BP 113/66; PULSE 113; RESP 16; TEMP 98.8; O2SAT 98
[2016-06-06] MEDS: ENOXAPARIN SODIUM 30 MG/0.3 ML SYRINGE SQ SCH (15:30)
[2016-06-06 16:00] VITALS: BP 109/60; PULSE 103; RESP 12; TEMP 97.8; O2SAT 98
[2016-06-06 20:00] VITALS: BP 96/57; PULSE 120; RESP 18; TEMP 99.8; O2SAT 96
--- NOTE | 2016-06-06 20:23 | PD.ONC.PN ---
Subjective Subjective Remarks tired and weak Objective Data Date Time Temp Pulse Resp B/P Pulse Ox O2 Delivery O2 Flow Rate FiO2 06/06/16 16:00 97.8 103 12 109/60 98 06/06/16 12:00 98.8 113 16 113/66 98 06/06/16 08:00 98.3 115 16 92/67 96 06/06/16 04:00 97.1 101 18 89/52 98 06/06/16 00:00 97.8 120 18 94/59 94 Result Diagram: 06/03/16 1112 06/05/16 0620 Administered Medications Medications (Trade) Dose Ordered Sig/Sara Route PRN Reason Start Time Stop Time Status Last Admin Dose Admin Ondansetron HCl (Zofran Inj) 4 mg Q6H PRN IV PUSH NAUSEA 04/02/16 01:45 05/17/16 09:01 IV Flush (NS Flush) 2 ml UNSCH PRN IVF FLUSH AFTER USING IV ACCESS 04/02/16 08:15 05/22/16 06:26 IV Flush (NS Flush) 2 ml BID IVF 04/02/16 09:00 06/06/16 09:00 Diphenhydramine HCl (Benadryl) 25 mg Q6H PRN PO ITCHING 04/02/16 09:00 05/17/16 11:32 Enoxaparin Sodium (Lovenox Inj) 30 mg Q24H SQ 04/04/16 15:30 06/06/16 15:30 Water (Free Water) VOLUME: 200 ML Q6HR G-TUBE 04/04/16 08:45 06/06/16 17:00 Acetaminophen (Tylenol) 650 mg Q4H PRN PO FEVER OVER 101.0 04/07/16 01:45 05/21/16 17:02 Morphine Sulfate (Morphine Inj) 2 mg Q2HR PRN IV PUSH PAIN SCALE 9 TO 10 04/08/16 09:00 05/17/16 15:00 Acetaminophen/ Hydrocodone Bitart (Hycet 325-7.5 Mg Liq) 15 ml Q3HR PRN PO PAIN 1 TO 8 04/08/16 14:45 06/05/16 22:48 Docusate Sodium (Colace Liq) 100 mg BID PRN GT CONSTIPATION 04/15/16 12:15 05/11/16 05:08 Padimate O (Chapstick) 1 applic UNSCH PRN TOP DISCOMFORT 04/17/16 10:00 04/18/16 00:01 Magnesium Oxide (Mag-Ox) 800 mg Q12HR GT 04/17/16 21:00 06/06/16 10:34 Metoclopramide HCl (Reglan Liq) 10 mg ACHS G-TUBE 04/19/16 16:00 06/06/16 15:30 Potassium Phosphate (K-Phos) 500 mg Q12HR PO 04/24/16 12:00 06/06/16 10:34 Lactobacillus Acidophilus (Lactinex) 1 tab TID PO 04/24/16 18:00 06/06/16 17:00 Diphenhydramine HCl (Benadryl Inj) 25 mg Q4H PRN IV PRIOR/DURING BLOOD TRANSFUSION 04/26/16 19:00 05/26/16 11:43 Fluconazole (Diflucan) 200 mg DAILY PO 05/01/16 15:45 06/06/16 10:34 Metronidazole (Flagyl) 500 mg Q8HR PO 05/01/16 22:00 06/06/16 15:30 Potassium Bicarb/ Potassium Chloride (K-Lyte Cl Eff) 40 meq Q12HR NG 05/04/16 22:00 06/06/16 10:34 Silver Sulfadiazine (Silvadene 1% Cream (50 Gm)) 1 applic Q12HR TOPICAL 05/21/16 12:00 06/05/16 22:40 Mupirocin 1 applic 1 applic Q12HR TOPICAL 06/01/16 10:30 06/05/16 22:40 Cefepime HCl/ Sodium Chloride (Maxipime Inj/NS Inj) 100 ml @ 200 mls/hr Q8H IV 06/03/16 12:00 06/06/16 11:51 Oxymetazoline HCl (Afrin 0.05% Dilip [place]) 2 spray Q12HR NASAL 06/04/16 13:58 06/06/16 10:35 Objective Remarks GENERAL: gaunt and chronically ill SKIN: tumor right side of face continues to regress with minimal remaining. area red. HEAD: Normocephalic. EYES: No scleral icterus. No injection or drainage. LYMPHATIC: No adenopathy. CARDIOVASCULAR: Regular rate and rhythm without murmurs. RESPIRATORY: Breath sounds equal bilaterally. No accessory muscle use. GASTROINTESTINAL: Abdomen soft, non-tender, nondistended. has G tube EXTREMITIES: No cyanosis, or edema. MUSCULOSKELETAL: muscle wasting. NEUROLOGICAL: No obvious focal deficit. Awake, alert, and oriented x3. PSYCHIATRIC: sad Assessment/Plan Assessment 1: CT angiogram of 06/01 reviewed and compared with previous ct of thorax. images are very convincing for metastatic disease to lungs, sternum and probably liver. The primary is responding well to tx but the current findings mean that he is in fact terminal even if we gain local control. He is not a candidate for any systemic tx now and whatever treatment will be available is not likely to significantly alter the course of his illness. He may not have long to live. I am not sure what plans are in place. The patient and brother are now very much aware of the implications of the findings on the ct scan of the thorax. Will proceed with the final cycle of carbo and taxol tomorrow for local control and following this I have no immediate plans for future treatments. The social situation is complicated. I will ask palliative care to see. I have discussed this with Dr. Beaulieu and he will review the films tomorrow to make sure he is in agreement. This was a very hard and lengthy conversation as the patient's brother was so hopeful of a different outcome and he continues to pray for such. Yovany Gan MD Jun 06, 2016 20:23
[2016-06-06] MEDS: ACETAMINOPHEN 325MG/HYDROcodone 7.5MG/15ML UDC PO PRN (21:20)
[2016-06-07] VITALS: BP 88/61; PULSE 103; RESP 18; TEMP 98.4; O2SAT 98
[2016-06-07] MEDS: CEFEPIME INJ 1,000 MG in SODIUM CHLORIDE 0.9% INJ 100 ML IV SCH ×3 (03:45→21:28)
[2016-06-07 04:00] VITALS: BP 91/61; PULSE 109; RESP 17; TEMP 97.6; O2SAT 97
[2016-06-07] MEDS: METOCLOPRAMIDE HCL SYRUP 10 MG/10 ML UDC G-TUBE SCH ×4 (05:18→21:28)
[2016-06-07] MEDS: metroNIDAZOLE 500 MG TAB PO SCH ×3 (05:18→21:28)
[2016-06-07] MEDS: FREE WATER G-TUBE SCH ×5 (06:00→23:14)
[2016-06-07 09:00] VITALS: BP 106/55; PULSE 112; RESP 18; TEMP 96.3; O2SAT 97
[2016-06-07] MEDS ORDERED: SODIUM CHLOR 0.9% 250 ML INJ 250 ML IV SCH (09:00)
[2016-06-07] MEDS ORDERED: GRANISETRON HCL 1 MG/ML VIAL IV ONE (09:00)
[2016-06-07] MEDS ORDERED: DEXAMETHASONE SOD PHOS 4 MG/ML VIAL IV ONE (09:00)
[2016-06-07] MEDS ORDERED: FAMOTIDINE 20 MG/2 ML VIAL IV ONE (09:00)
[2016-06-07] MEDS ORDERED: diphenhydrAMINE HCL 50 MG/ML VIAL IV ONE (09:00)
[2016-06-07] MEDS ORDERED: PACLITAXEL IV ONE (10:00)
[2016-06-07] MEDS ORDERED: SODIUM CHLOR 0.9% IV ONE ×2 (10:00→11:00)
--- NOTE | 2016-06-07 10:20 | HHI.PR ---
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 06/05 Seen in his bedroom in the presence of his brother, No nausea vomit or diarrhea, continue antibiotics Cefepime, Fluconazole, Flagyl. 06/06 No complaint, weak, afebrile, tachycardia, seen in the presence of his Brother 06/07 No new issues, very weak, somnolent but not lethargic, will have last cycle of Carbo and Taxol today, no Nausea, vomit or diarrhea, Tachycardia. Objective Vital Signs Date Time Temp Pulse Resp B/P Pulse Ox O2 Delivery O2 Flow Rate FiO2 06/07/16 09:00 96.3 112 18 106/55 97 06/07/16 04:00 97.6 109 17 91/61 97 06/07/16 00:00 98.4 103 18 88/61 98 06/06/16 20:00 99.8 120 18 96/57 96 06/06/16 16:00 97.8 103 12 109/60 98 06/06/16 12:00 98.8 113 16 113/66 98 I/O 06/06/16 06/06/16 06/06/16 06/07/16 06/07/16 06/07/16 07:00 15:00 23:00 07:00 15:00 23:00 Intake Total 246 ml 240 ml Balance 246 ml 240 ml IV Total 246 ml 240 ml # Voids 1 3 # Bowel Movements 1 Result Diagram: 06/03/16 1112 06/05/16 0620 Imaging Last Impressions Chest X-Ray 06/03/16 0000 Signed Impressions: Service Date/Time: Friday, June 03, 2016 13:55 - CONCLUSION: Abnormal chest x-ray as described above. There appears to be minimal improvement from the CT scan of 05/22/2016. Cornelio Negrete MD FACR CT Angiography 06/01/16 0000 Signed Impressions: Service Date/Time: May 16:48 - CONCLUSION: 1. No evidence of pulmonary embolus. 2. Numerous bilateral pulmonary nodules indicating pulmonary metastatic disease. 3. Destructive lucent bone lesion in the sternum indicating metastatic disease. 4. 2 cm nonspecific hypodense lesion in the left lobe of the liver. 5. Mildly enlarged hilar lymph nodes bilaterally. Prabhu Jang MD Liver Ultrasound 04/12/16 Signed Impressions: Service Date/Time: Tuesday, April 12, 2016 22:29 - CONCLUSION: 1. Solid indeterminate mass in the left lobe of the liver as well as a tiny cyst. An MRI of the abdomen with without contrast may be helpful for further assessment if felt clinically warranted. The possibility of a metastatic lesion is not excluded. 2. Cholelithiasis. 3. Bilateral pleural effusions are suspected sonographically. Chau Ward MD Chest CT 04/11/16 Signed Impressions: Service Date/Time: Monday, April 11, 2016 14:09 - CONCLUSION: 1. Multiple small scattered noncalcified pulmonary nodules which are nonspecific but are of concern for early metastatic disease. 2. The known large tumor mass in the right side of the face and neck is partially visualized with destructive change involving the right side of the mandible. This extends into the right supraclavicular region. Please see soft tissue neck CT for further details. 3. Low attenuation lesion in the left lobe of the liver again noted. Holland Villegas MD Abdomen/Pelvis CT 04/11/16 Signed Impressions: Service Date/Time: Monday, April 11, 2016 14:09 - CONCLUSION: 1. 1.4 cm low-attenuation lesion left lobe of the liver of concern for a metastasis. There is a smaller more cystic appearing structure in the right lobe. 2. The remainder of the study is unremarkable except for a PEG tube in the stomach. Holland Villegas MD Upper Extremity Ultrasound 04/08/16 Signed Impressions: Service Date/Time: Friday, April 08, 2016 13:04 - CONCLUSION: No thrombus. Deshawn Michele MD Neck CT 04/02/16 0000 Signed Impressions: Service Date/Time: Saturday, April 02, 2016 11:54 - CONCLUSION: Very large heterogeneous soft tissue mass along the right side of the face with gross destruction involving most of the right mandible. The mass contains amorphous calcifications and appears to involve the right sternocleidomastoid muscle. The mass appears to extend into the oral cavity with diffuse enlargement of the right tonsillar pillar. Neoplastic disease in the primary consideration. Niall Corrales MD Multiplanar Reconstruction 04/02/16 0000 Signed Impressions: Service Date/Time: Saturday, April 02, 2016 11:54 - CONCLUSION: 3-D reconstructive images demonstrating destruction involving most the right side of the mandible. Niall Corrales MD Head CT 04/02/16 0000 Signed Impressions: Service Date/Time: Saturday, April 02, 2016 11:54 - CONCLUSION: 1. Unremarkable CT scan of the brain 2. Large abnormal soft tissue mass with calcifications along the right side of the face. Niall Corrales MD Procedures central line placement PEG placement bone biopsy teeth extraction Radiation therapy Chemotherapy Other Results Laboratory Tests Test 06/03/16 06/03/16 06/05/16 11:12 11:22 06:20 White Blood Count 5.7 TH/MM3 Red Blood Count 2.84 MIL/MM3 Hemoglobin 8.5 GM/DL Hematocrit 24.9 % Mean Corpuscular Volume 87.8 FL Mean Corpuscular Hemoglobin 29.8 PG Mean Corpuscular Hemoglobin 33.9 % Concent Red Cell Distribution Width 15.3 % Platelet Count 414 TH/MM3 Mean Platelet Volume 5.8 FL Neutrophils (%) (Auto) 78.5 % Lymphocytes (%) (Auto) 5.1 % Monocytes (%) (Auto) 15.7 % Eosinophils (%) (Auto) 0.3 % Basophils (%) (Auto) 0.4 % Neutrophils # (Auto) 4.5 TH/MM3 Lymphocytes # (Auto) 0.3 TH/MM3 Monocytes # (Auto) 0.9 TH/MM3 Eosinophils # (Auto) 0.0 TH/MM3 Basophils # (Auto) 0.0 TH/MM3 CBC Comment DIFF FINAL Differential Comment Vancomycin Level Trough 12.2 MCG/ML Prothrombin Time 14.0 SEC Prothromb Time International 1.3 RATIO Ratio Sodium Level 136 MEQ/L Potassium Level 4.0 MEQ/L Chloride Level 97 MEQ/L Carbon Dioxide Level 29.5 MEQ/L Anion Gap 10 MEQ/L Blood Urea Nitrogen 13 MG/DL Creatinine 0.26 MG/DL Estimat Glomerular Filtration 400 ML/MIN Rate Random Glucose 96 MG/DL Calcium Level 9.2 MG/DL Phosphorus Level 3.5 MG/DL Magnesium Level 1.7 MG/DL Total Bilirubin 0.2 MG/DL Aspartate Amino Transf 12 U/L (AST/SGOT) Alanine Aminotransferase 11 U/L (ALT/SGPT) Alkaline Phosphatase 108 U/L Total Protein 5.5 GM/DL Albumin 1.8 GM/DL Triglycerides Level 74 MG/DL Objective Remarks General: No acute Distress. HEENT: large ulcerating mass on his right facial area dressed at this time. CV RRR. no r/m/g Resp CTA B/L Abd soft NDNT EXT: no edema Medications and IVs Current Medications Medications (Trade) Dose Ordered Sig/Sara Route Start Time Stop Time Status Last Admin (Zofran Inj) 4 mg Q6H PRN IV PUSH 04/02/16 01:45 05/17/16 09:01 (NS Flush) 2 ml UNSCH PRN IVF 04/02/16 08:15 05/22/16 06:26 (NS Flush) 2 ml BID IVF 04/02/16 09:00 06/06/16 20:40 (Benadryl) 25 mg Q6H PRN PO 04/02/16 09:00 05/17/16 11:32 (Lovenox Inj) 30 mg Q24H SQ 04/04/16 15:30 06/06/16 15:30 (Free Water) VOLUME: 200 ML Q6HR G-TUBE 04/04/16 08:45 06/07/16 06:00 (Tylenol) 650 mg Q4H PRN PO 04/07/16 01:45 05/21/16 17:02 (Morphine Inj) 2 mg Q2HR PRN IV PUSH 04/08/16 09:00 05/17/16 15:00 (Hycet 325-7.5 Mg Liq) 15 ml Q3HR PRN PO 04/08/16 14:45 06/06/16 21:20 (Colace Liq) 100 mg BID PRN GT 04/15/16 12:15 05/11/16 05:08 (Lactulose Liq) 30 ml TID PRN G-TUBE 04/15/16 12:15 (Dulcolax Supp) 10 mg DAILY PRN AK 04/15/16 12:15 (Milk Of Magnesia Liq) 30 ml Q6H PRN GT 04/15/16 12:15 (Chapstick) 1 applic UNSCH PRN TOP 04/17/16 10:00 2/14/17 00:01 (Mag-Ox) 800 mg Q12HR GT 04/17/16 21:00 06/06/16 20:33 (Reglan Liq) 10 mg ACHS G-TUBE 04/19/16 16:00 06/07/16 05:18 (K-Phos) 500 mg Q12HR PO 04/24/16 12:00 06/06/16 20:34 (Lactinex) 1 tab TID PO 04/24/16 18:00 06/06/16 17:00 (Benadryl Inj) 25 mg Q4H PRN IV 04/26/16 19:00 05/26/16 11:43 (Diflucan) 200 mg DAILY PO 05/01/16 15:45 06/06/16 10:34 (Flagyl) 500 mg Q8HR PO 05/01/16 22:00 06/07/16 05:18 (K-Lyte Cl Eff) 40 meq Q12HR NG 05/04/16 22:00 06/06/16 20:32 (Magic Mouthwash Adult Liq) 5 ml QID PRN SWISH-SWAL 05/21/16 11:00 (Miralax) 17 gm DAILY PRN G-TUBE 05/21/16 11:00 (Silvadene 1% Cream (50 Gm)) 1 applic Q12HR TOPICAL 05/21/16 12:00 06/06/16 20:34 Mupirocin 1 applic 1 applic Q12HR TOPICAL 06/01/16 10:30 06/06/16 20:34 (Maxipime Inj/NS Inj) 100 ml @ 200 mls/hr Q8H IV 06/03/16 12:00 06/07/16 03:45 Oxymetazoline HCl 2 spray 2 spray Q12HR NASAL 06/04/16 13:58 06/06/16 20:34 Sodium Chloride 250 ml @ 0 mls/hr UNSCH IV 06/07/16 09:00 06/07/16 23:59 Paclitaxel 60 mg/ Sodium Chloride 260 ml @ 260 mls/hr ONCE ONCE IV 06/07/16 10:00 06/07/16 10:59 (Paraplatin Inj/ NS 250 ml Inj) 250 ml @ 250 mls/hr ONCE ONCE IV 06/07/16 11:00 06/07/16 11:59 A/P Problem List: (1) Radiation-induced dermatitis ICD Code: L58.9 (2) 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 (3) 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 Squamous Cell Carcinoma of Oropharynx, CT of the face showed very large heterogeneous soft tissue mass along the right side of the face with gross destruction involving most of the right mandible. Metastatic Disease to the Abdomen and Lung/Liver. 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 continue Radiation therapy and Chemotherapy as per computer security specialist. and Radiation specialist following. Not possible resection at this time, recommended to wait 12 weeks and obtain PET scan and continue management as per Oncology with chemotherapy and Radiation therapy 2. Stomatitis and Mucositis, Improving with local care. 3. Sepsis one bottle of blood cultures, growing Pseudomonas Stutzeri. right facial wound and central line suspected source. Central line discontinued. was on Levofloxacin switched to Augmentin plus Flagyl and continue Fluconazole. Antibiotics handled by Attending physician, do not want ID specialist on the case. 4. 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 today 135 5. Hypercalcemia of malignancy, status post treatment with Aredia. resolved 6. Anemia secondary to Chemotherapy, Status post Blood transfusion. Hemoglobin 8.5 7. Severe Protein Calorie Malnutrition, status post PEG placement tube feedings 8. Constipation continue Colace, MiraLAX and Lactulose 9. Nasal congestion-start oxymetazoline. 10. PEG tube site infection, -wound culture growing Escherichia coli, continue cefepime switch to Bactrim in 1-2 days, continue mupirocin. 11. Sepsis secondary to bloodstream infection-1 blood culture bottle grew Pseudomonas stutzeri. Status post Zosyn. Repeat blood cultures negative, also on Flagyl and oral fluconazole per surgery. No leukocytosis. CBC stable DVT prophylaxis with Lovenox. Code status DNR Discussed with patient and his Brother also nurse Miss Aragon in the room. GI prophylaxis: Lactinex and PPI. Poor Short Term prognosis. Discharge Planning As per Attending physician. Richie Devries MD Jun 07, 2016 10:20
--- NOTE | 2016-06-07 10:28 | HHI.PR ---
Subjective Subjective Notes no problems per brother and nursing staff, chest pain better. Objective Vitals/I&O Vital Signs Date Time Temp Pulse Resp B/P Pulse Ox O2 Delivery O2 Flow Rate FiO2 06/07/16 09:00 96.3 112 18 106/55 97 Narrative Exam facial dressing in place, clean and dry. A/P Assessment and Plan 35 year old male with large oropharyngeal cancer -Will wait 2-3 months to debulk tumor -s/p PEG placement -s/p biopsy of mass -Tolerating bolus feedings -Will work on extending VISA for Cadir - D/W Dr. Lezama. Pt has metastatic disease to chest. Recommends palliative care/hospice. Will discuss reconstruction with Dr. Branch. I CERTIFY AND ATTEST THAT I PERSONALLY EXAMINED THIS PATIENT IN THEIR ROOM WITH THE AFTER SCHOOL TUTOR PRESENT. MS AVILES IS DOCUMENTING OUR VISIT IN THE EMR AND ENTERED ORDERS UNDER MY DIRECT SUPERVISION. I DISCUSSED THE CARE PLAN WITH THE PATIENT AND THEIR [facility] STAFF. HAYDEN WOODS MD FACS Hayden Woods MD Jun 07, 2016 10:28
[2016-06-07] MEDS ORDERED: CARBOPLATIN IV ONE (11:00)
[2016-06-07] MEDS: SODIUM CHLORIDE 0.9% FLUSH 5 ML FLUSH IVF SCH ×2 (11:30→21:00)
[2016-06-07] MEDS: MAGNESIUM OXIDE 400 MG TAB GT SCH ×2 (11:31→21:28)
[2016-06-07] MEDS: LACTOBACILLUS ACIDOPHILUS TAB PO SCH ×3 (11:31→17:12)
[2016-06-07] MEDS: OXYMETAZOLINE HCL 0.05% 15 ML NASAL SPRAY NASAL SCH ×2 (11:31→21:00)
[2016-06-07] MEDS: POTASSIUM CHLORIDE 25 MEQ EFFERVESCENT TAB NG SCH ×2 (11:31→21:28)
[2016-06-07] MEDS: POTASSIUM PHOSPHATE MONOBASIC 500 MG TAB PO SCH ×2 (11:32→21:28)
[2016-06-07] MEDS: FLUCONAZOLE 200 MG TAB PO SCH (11:32)
[2016-06-07] MEDS: ACETAMINOPHEN 325MG/HYDROcodone 7.5MG/15ML UDC PO PRN ×2 (11:53→21:27)
[2016-06-07 12:00] VITALS: BP 121/68; PULSE 116; RESP 16; TEMP 97.9; O2SAT 94
--- NOTE | 2016-06-07 12:17 | HHI.HCPN ---
Reason for visit a. To assist with evaluation and management of symptoms including: jaw/ facial pain and debility. b. To assist medical decision maker(s) with: better understanding of current medical conditions; weighing benefits/burdens of medical treatment options; making medical treatment decisions. . Subjective/Interval History Patient was seen in his room, lying in bed in NAD. His brother and nurse (Ryland ) were at the bedside as well. Stratus was utilized for translation. CT angiogram on 06/01/16 indicative of metastatic disease to the sternum, lungs and likely the liver. Patient will have last round of Carbo and Taxol today. Advance Directives Living Will: Never completed Health Care Surrogate: Copy in medical record Durable Power of Machine Tool Dresser: Never completed Advance Directive Specifics Date completed: 04/11/2016. . Health Care Surrogate(s): Patient completed HCS designation naming his brother Vish Jaimes as HCS. . Documented care wishes: No living will completed. . Objective Vital Signs Date Time Temp Pulse Resp B/P Pulse Ox O2 Delivery O2 Flow Rate FiO2 06/07/16 09:00 96.3 112 18 106/55 97 06/07/16 04:00 97.6 109 17 91/61 97 06/07/16 00:00 98.4 103 18 88/61 98 06/06/16 20:00 99.8 120 18 96/57 96 06/06/16 16:00 97.8 103 12 109/60 98 Intake & Output 06/07/16 06/07/16 07:00 19:00 Intake Total 240 ml Balance 240 ml IV Total 240 ml Physical Exam CONSTITUTIONAL/GENERAL: This is an cachectic male in no acute distress. TUBES/LINES/DRAINS: PIV's. SKIN: Skin temperature appropriate. Not diaphoretic. Radiation andrade to bilateral anterior neck. HEAD: Atraumatic. Normocephalic. EYES: Pupils equal and round and reactive. No injection or drainage. ENT: Hearing grossly normal. Large mass to right side of mouth/jaw with dressing in place. CARDIOVASCULAR: Regular rate and rhythm. Peripheral pulses symmetric. RESPIRATORY/CHEST: Symmetric, unlabored respirations. Clear to auscultation. Breath sounds equal bilaterally. No wheezes, rales, or rhonchi. GASTROINTESTINAL: Abdomen soft, non-tender, nondistended. PEG in place. No guarding. Bowel sounds present. MUSCULOSKELETAL: Extremities without clubbing, cyanosis, or edema. significant muscle wasting noted. NEUROLOGICAL: alert, following commands. Attempting to communicate by hand gestures and nodding head to yes/no questions. PSYCHIATRIC: calm. . Diagnostic Tests Laboratory Laboratory Tests Test 06/05/16 06:20 Prothrombin Time 14.0 SEC (9.8-11.6) Prothromb Time International 1.3 RATIO Ratio Sodium Level 136 MEQ/L (136-145) Potassium Level 4.0 MEQ/L (3.5-5.1) Chloride Level 97 MEQ/L (98-107) Carbon Dioxide Level 29.5 MEQ/L (21.0-32.0) Anion Gap 10 MEQ/L (5-15) Blood Urea Nitrogen 13 MG/DL (7-18) Creatinine 0.26 MG/DL (0.60-1.30) Estimat Glomerular Filtration 400 ML/MIN Rate (>89) Random Glucose 96 MG/DL (74-106) Calcium Level 9.2 MG/DL (8.5-10.1) Phosphorus Level 3.5 MG/DL (2.5-4.9) Magnesium Level 1.7 MG/DL (1.5-2.5) Total Bilirubin 0.2 MG/DL (0.2-1.0) Aspartate Amino Transf 12 U/L (15-37) (AST/SGOT) Alanine Aminotransferase 11 U/L (12-78) (ALT/SGPT) Alkaline Phosphatase 108 U/L (45-117) Total Protein 5.5 GM/DL (6.4-8.2) Albumin 1.8 GM/DL (3.4-5.0) Triglycerides Level 74 MG/DL (42-150) Result Diagram: 06/03/16 1112 06/05/16 0620 Procedures * 04/03/16 - PEG placement * 04/03/16 - Biopsy of facial mass . 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 (2) Pain 0-10 Scale: 0 Comment: secondary to burden of disease. Pertinent Non-Medical Issues Psychosocial: Spiritual: Legal: Ethical issues impacting care: Important Contacts Brother Vish Nunn . . Prognosis Mr. Ribera is a 35 y/o male with no significant prior medical history who was admitted on 04/02/16 for treatment of facial mass. 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 Not a surgical candidate. Appears he has limited treatment options secondary to clinical condition, palliative radiation being considered. Patient's prognosis is very poor secondary to advanced cancer, profound physical deconditioning, and malnutrition. Patient is at high risk for further decline, additional complications and . . Code Status: No Code Plan * CODE STATUS: NO CODE. * HEALTHCARE DECISION-MAKING: Patient participating in medical decision-making. HCS completed, patient designated his brother Vish Nunn as healthcare surrogate. * GOALS OF CARE: Goal is to continue with current treatment plan for symptom management/improve quality of live. Patient and brother have verbalized understanding that pt's condition is terminal and not curable. They wish to continue current plan to include completion of palliative radiation and chemotherapy as tolerated. Plan for debulking surgery within the next 2 to 3 months after completion of rad/chemo. * SYMPTOMS: ==Oral pain, secondary to burden of disease. Lortab and Morphine available as needed. ==Debility: secondary to burden of disease and malnutrition. PT following. ==Dysphagia, secondary to burden of disease/tumor. Peg tube in place with ongoing feeding. * Palliative care contact information has been provided to patient and brother. * Ongoing emotional support and active listening provided. * Palliative care will continue to f/u with patient and family as needed for further clarification of goals and for emotional support. . Dian Marcus Jun 07, 2016 12:17
[2016-06-07] MEDS: ENOXAPARIN SODIUM 30 MG/0.3 ML SYRINGE SQ SCH (14:35)
[2016-06-07] MEDS: SILVER SULFADIAZINE 1% CR 50 GM JAR TOPICAL SCH ×2 (14:36→21:00)
[2016-06-07] MEDS: MUPIROCIN 2% OINT 22 GM TUBE TOPICAL SCH ×2 (14:36→21:00)
[2016-06-07 16:00] VITALS: BP 95/53; PULSE 96; RESP 18; TEMP 96; O2SAT 97
--- NOTE | 2016-06-07 16:09 | PD.ONC.PN ---
Subjective Subjective Remarks Afebrile overnight. Patient resting comfortably with brother at bedside. No complaints. Objective Data Date Time Temp Pulse Resp B/P Pulse Ox O2 Delivery O2 Flow Rate FiO2 06/07/16 12:00 97.9 116 16 121/68 94 06/07/16 09:00 96.3 112 18 106/55 97 06/07/16 04:00 97.6 109 17 91/61 97 06/07/16 00:00 98.4 103 18 88/61 98 06/06/16 20:00 99.8 120 18 96/57 96 06/07/16 06/07/16 06/07/16 07:00 15:00 23:00 Intake Total 240 ml Balance 240 ml Result Diagram: 06/03/16 1112 06/05/16 0620 Administered Medications Medications (Trade) Dose Ordered Sig/Sara Route PRN Reason Start Time Stop Time Status Last Admin Dose Admin Ondansetron HCl (Zofran Inj) 4 mg Q6H PRN IV PUSH NAUSEA 04/02/16 01:45 05/17/16 09:01 IV Flush (NS Flush) 2 ml UNSCH PRN IVF FLUSH AFTER USING IV ACCESS 04/02/16 08:15 05/22/16 06:26 IV Flush (NS Flush) 2 ml BID IVF 04/02/16 09:00 06/07/16 11:30 Diphenhydramine HCl (Benadryl) 25 mg Q6H PRN PO ITCHING 04/02/16 09:00 05/17/16 11:32 Enoxaparin Sodium (Lovenox Inj) 30 mg Q24H SQ 04/04/16 15:30 06/07/16 14:35 Water (Free Water) VOLUME: 200 ML Q6HR G-TUBE 04/04/16 08:45 06/07/16 11:33 Acetaminophen (Tylenol) 650 mg Q4H PRN PO FEVER OVER 101.0 04/07/16 01:45 05/21/16 17:02 Morphine Sulfate (Morphine Inj) 2 mg Q2HR PRN IV PUSH PAIN SCALE 9 TO 10 04/08/16 09:00 05/17/16 15:00 Acetaminophen/ Hydrocodone Bitart (Hycet 325-7.5 Mg Liq) 15 ml Q3HR PRN PO PAIN 1 TO 8 04/08/16 14:45 06/07/16 11:53 Docusate Sodium (Colace Liq) 100 mg BID PRN GT CONSTIPATION 04/15/16 12:15 05/11/16 05:08 Padimate O (Chapstick) 1 applic UNSCH PRN TOP DISCOMFORT 04/17/16 10:00 04/18/16 00:01 Magnesium Oxide (Mag-Ox) 800 mg Q12HR GT 04/17/16 21:00 06/07/16 11:31 Metoclopramide HCl (Reglan Liq) 10 mg ACHS G-TUBE 04/19/16 16:00 06/07/16 11:31 Potassium Phosphate (K-Phos) 500 mg Q12HR PO 04/24/16 12:00 06/07/16 11:32 Lactobacillus Acidophilus (Lactinex) 1 tab TID PO 04/24/16 18:00 06/07/16 14:35 Diphenhydramine HCl (Benadryl Inj) 25 mg Q4H PRN IV PRIOR/DURING BLOOD TRANSFUSION 04/26/16 19:00 05/26/16 11:43 Fluconazole (Diflucan) 200 mg DAILY PO 05/01/16 15:45 06/07/16 11:32 Metronidazole (Flagyl) 500 mg Q8HR PO 05/01/16 22:00 06/07/16 14:35 Potassium Bicarb/ Potassium Chloride (K-Lyte Cl Eff) 40 meq Q12HR NG 05/04/16 22:00 06/07/16 11:31 Silver Sulfadiazine (Silvadene 1% Cream (50 Gm)) 1 applic Q12HR TOPICAL 05/21/16 12:00 06/07/16 14:36 Mupirocin 1 applic 1 applic Q12HR TOPICAL 06/01/16 10:30 06/07/16 14:36 Cefepime HCl/ Sodium Chloride (Maxipime Inj/NS Inj) 100 ml @ 200 mls/hr Q8H IV 06/03/16 12:00 06/07/16 12:26 Oxymetazoline HCl (Afrin 0.05% Dilip Musella) 2 spray Q12HR NASAL 06/04/16 13:58 06/07/16 11:31 Objective Remarks GENERAL: Young man, upright in bed in nad SKIN: Warm and dry. HEAD: Normocephalic. tumor right face in bandages. EYES: No injection or drainage. NECK: Supple, trachea midline. CARDIOVASCULAR: Regular rate and rhythm RESPIRATORY: Breath sounds equal bilaterally. No accessory muscle use. GASTROINTESTINAL: Abdomen soft, non-tender, nondistended. EXTREMITIES: No cyanosis NEUROLOGICAL: awake and alert. Assessment/Plan Assessment 35y/o with metastatic head and neck cancer. Plan 1. long discussion held at bedside with patient and patient's brother. we discussed the plan of finishing chemotherapy and radiation. last chemotherapy will be today. after chemotherapy and radiation he will need about 2-3 weeks to heal from chemotherapy and radiation, and then in approximately three weeks he could travel back to [facility] if thats what he desired. will discuss more with Dr. Oseguera and palliative care in the coming days. The exam, history, and the medical decision-making described in the above note were completed with the assistance of the mid-level provider. I reviewed and agree with the findings presented. I attest that I had a [id number] encounter with the patient on the same day, and personally performed and documented my assessment and findings in the medical record. I believe it will be several weeks before he has recovered enough to return home. I have spoken with Dr. Torres and if possible he could convalesce in the hospice care center before returning home. His care needs are significant and will require frequent nursing help. Sirisha Cotton Jun 07, 2016 16:09 Yovany Lezama MD Jun 07, 2016 19:58
--- NOTE | 2016-06-07 17:11 | HHI.HCPN ---
Reason for visit a. To assist with evaluation and management of symptoms including: jaw/ facial pain and debility. b. To assist medical decision maker(s) with: better understanding of current medical conditions; weighing benefits/burdens of medical treatment options; making medical treatment decisions. . Subjective/Interval History Patient was seen in his room, also present his brother and nurse (Dariellorena). Patient is in no acute distress. CTA on 06/01/16 indicative of metastatic disease to the sternum, lungs and likely the liver. Patient has completed radiation and will have last round of Carbo and Taxol today. He is not a candidate for further aggressive treatment. Dr. Lezama has made recommendations for palliative care/hospice. Discussed patient's goals moving forward, using [employer] to assist with translation. Dr. Oseguera present during portions of this conversation. Patient will need to 3 weeks to heal status post chemotherapy and radiation, but it would be possible for him to travel back to [facility] in approximately 3 weeks if that is what he desires. However the patient may be unable to tolerate the trip, and symptom management would be extremely difficult for him and [facility]. Patient is certainly appropriate for hospice services, we discussed comfort focused care if the patient were to remain in [place] ([facility] at [facility]). Will discuss further with Dr. Oseguera, Dr. Torres, and Palliative Care in the upcoming days. Afebrile. PEG tube wound growing Escherichia coli. Vancomycin was discontinued , and the patient was started on Cefepime. Remains on mupirocin ointment. Hycet 3257.5 mg PO is available q3 PRN for pain scale 1-8, sparingly use. Patient has received 2 doses in the past 24 hours. Morphine is also available for pain scale 9-10 but has not been necessary for several weeks. Patient appears cachectic with severe protein energy malnutrition as evidenced by albumin of 1.5. Dietitian following. Patient tolerating tube feedings. . Advance Directives Living Will: Never completed Health Care Surrogate: Copy in medical record Durable Power of Chemical Processing Laborer: Never completed Advance Directive Specifics Date completed: 04/11/2016. . Health Care Surrogate(s): Patient completed [facility] designation naming his brother Vish Jaimes as [facility]. . Documented care wishes: No living will completed. . Objective Vital Signs Date Time Temp Pulse Resp B/P Pulse Ox O2 Delivery O2 Flow Rate FiO2 06/07/16 12:00 97.9 116 16 121/68 94 06/07/16 09:00 96.3 112 18 106/55 97 06/07/16 04:00 97.6 109 17 91/61 97 06/07/16 00:00 98.4 103 18 88/61 98 06/06/16 20:00 99.8 120 18 96/57 96 Intake & Output 06/07/16 06/07/16 07:00 19:00 Intake Total 240 ml Balance 240 ml IV Total 240 ml . Physical Exam CONSTITUTIONAL/GENERAL: This is an cachectic male in no acute distress. TUBES/LINES/DRAINS: PIV's. SKIN: Skin temperature appropriate. Not diaphoretic. Radiation andrade to bilateral anterior neck. HEAD: Atraumatic. Normocephalic. EYES: Pupils equal and round and reactive. No injection or drainage. ENT: Hearing grossly normal. Large mass to right side of mouth/jaw with dressing in place. CARDIOVASCULAR: Regular rate and rhythm. Peripheral pulses symmetric. RESPIRATORY/CHEST: Symmetric, unlabored respirations. Clear to auscultation. Breath sounds equal bilaterally. No wheezes, rales, or rhonchi. GASTROINTESTINAL: Abdomen soft, non-tender, nondistended. PEG in place. No guarding. Bowel sounds present. MUSCULOSKELETAL: Extremities without clubbing, cyanosis, or edema. significant muscle wasting noted. NEUROLOGICAL: Somnolent Attempting to communicate by hand gestures and nodding head to yes/no questions. PSYCHIATRIC: Calm. . Diagnostic Tests Laboratory Laboratory Tests Test 06/05/16 06:20 Prothrombin Time 14.0 SEC (9.8-11.6) Prothromb Time International 1.3 RATIO Ratio Sodium Level 136 MEQ/L (136-145) Potassium Level 4.0 MEQ/L (3.5-5.1) Chloride Level 97 MEQ/L (98-107) Carbon Dioxide Level 29.5 MEQ/L (21.0-32.0) Anion Gap 10 MEQ/L (5-15) Blood Urea Nitrogen 13 MG/DL (7-18) Creatinine 0.26 MG/DL (0.60-1.30) Estimat Glomerular Filtration 400 ML/MIN Rate (>89) Random Glucose 96 MG/DL (74-106) Calcium Level 9.2 MG/DL (8.5-10.1) Phosphorus Level 3.5 MG/DL (2.5-4.9) Magnesium Level 1.7 MG/DL (1.5-2.5) Total Bilirubin 0.2 MG/DL (0.2-1.0) Aspartate Amino Transf 12 U/L (15-37) (AST/SGOT) Alanine Aminotransferase 11 U/L (12-78) (ALT/SGPT) Alkaline Phosphatase 108 U/L (45-117) Total Protein 5.5 GM/DL (6.4-8.2) Albumin 1.8 GM/DL (3.4-5.0) Triglycerides Level 74 MG/DL (42-150) . Result Diagram: 06/03/16 1112 06/05/16 0620 Procedures * 04/03/16 - PEG placement * 04/03/16 - Biopsy of facial mass . 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 (2) Pain 0-10 Scale: 0 Comment: secondary to burden of disease. Pertinent Non-Medical Issues Psychosocial: Spiritual: Legal: Ethical issues impacting care: Important Contacts Brother Vish Nunn . . Prognosis Mr. Ribera is a 35 y/o male with no significant prior medical history who was admitted on 04/02/16 for treatment of facial mass. 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 Not a surgical candidate. Appears he has limited treatment options secondary to clinical condition, palliative radiation being considered. Patient's prognosis is very poor secondary to advanced cancer, profound physical deconditioning, and malnutrition. Patient is at high risk for further decline, additional complications and . . Code Status: No Code Plan * CODE STATUS: NO CODE. * HEALTHCARE DECISION-MAKING: Patient participating in medical decision-making. HCS completed, patient designated his brother Vish Nunn as healthcare surrogate. * GOALS OF CARE: Symptom management/improve quality of live, considering hospice. * SYMPTOMS: ==Oral pain, secondary to burden of disease. Lortab and Morphine available as needed. ==Debility: secondary to burden of disease and malnutrition. PT following. * CTA on 06/01/16 indicative of metastatic disease to the sternum, lungs and likely the liver. Patient has completed radiation and will have last round of Carbo and Taxol today. He is not a candidate for further aggressive treatment. Dr. Lezama has made recommendations for palliative care/hospice. * Discussed patient's goals moving forward, using stratus to assist with translation. Dr. Oseguera present during portions of this conversation. Patient will need to 3 weeks to heal status post chemotherapy and radiation, but it would be possible for him to travel back to [facility] in approximately 3 weeks if that is what he desires. However the patient may be unable to tolerate the trip, and symptom management would be extremely difficult for him and [facility]. Patient is certainly appropriate for hospice services, we discussed comfort focused care if the patient were to remain in [place] ([facility] services at [facility]). Will discuss further with Dr. Oseguera, Dr. Torres, and Palliative Care in the upcoming days. * Discussed with patient's nurse (Ryland), Dr. Oseguera, Dr. Torres, and Manda MONAE * Ongoing emotional support and active listening provided. * Palliative care will continue to f/u with patient and family as needed for further clarification of goals and for emotional support. . Attestation To help prompt me to consider important information that might be impacting today's encounter and assessment, information from prior notes written by myself or my colleagues may have been "brought forward" into today's note. My signature on this note, however, is an attestation that I personally performed the exam, history, and/or decision-making noted today, and, unless otherwise indicated, the interactions with patient, family, and staff as well as the review of records all occurred today. I also attest that the listed assessment and stated plan reflect my best clinical judgment today based on the combination of historical information, prior notes, and today's exam/ interactions. When time spent is documented, it refers only to time spent today by the signer, or if indicated, combined time spent today by collaborating physician/nurse practitioner. . Dian Marcus Jun 07, 2016 17:11 . Dian Marcus Jun 07, 2016 17:11
[2016-06-07 20:00] VITALS: BP 94/59; PULSE 91; RESP 18; TEMP 96.5; O2SAT 96
[2016-06-08] VITALS: BP 91/60; PULSE 84; RESP 18; TEMP 97.1; O2SAT 97
[2016-06-08 04:00] VITALS: BP 98/64; PULSE 84; RESP 17; TEMP 97.8; O2SAT 99
[2016-06-08] MEDS: CEFEPIME INJ 1,000 MG in SODIUM CHLORIDE 0.9% INJ 100 ML IV SCH ×2 (05:04→11:05)
[2016-06-08] MEDS: FREE WATER G-TUBE SCH ×3 (05:04→16:50)
[2016-06-08] MEDS: metroNIDAZOLE 500 MG TAB PO SCH ×2 (05:04→13:42)
[2016-06-08] MEDS: METOCLOPRAMIDE HCL SYRUP 10 MG/10 ML UDC G-TUBE SCH ×4 (06:17→21:00)
[2016-06-08] MEDS: SILVER SULFADIAZINE 1% CR 50 GM JAR TOPICAL SCH ×2 (09:00→21:00)
[2016-06-08 09:30] VITALS: BP 97/59; PULSE 86; RESP 18; TEMP 97; O2SAT 97
--- NOTE | 2016-06-08 10:32 | HHI.PR ---
Subjective Remarks F/u facial cancer. No new complaint gives me a thumbs up seen with brother dw [employer] SALES REPRESENTATIVE Objective Vitals Vital Signs Date Time Temp Pulse Resp B/P Pulse Ox O2 Delivery O2 Flow Rate FiO2 06/08/16 09:30 97.0 86 18 97/59 97 06/08/16 04:00 97.8 84 17 98/64 99 06/08/16 00:00 97.1 84 18 91/60 97 06/07/16 20:00 96.5 91 18 94/59 96 06/07/16 16:00 96.0 96 18 95/53 97 06/07/16 12:00 97.9 116 16 121/68 94 I/O 06/07/16 06/07/16 06/07/16 06/08/16 06/08/16 06/08/16 07:00 15:00 23:00 07:00 15:00 23:00 Intake Total 240 ml 0 ml Balance 240 ml 0 ml Intake Oral 0 ml IV Total 240 ml # Voids 2 2 Result Diagram: 06/05/16 0620 Objective Remarks GENERAL: in no acute distress HEENT; swollen right face with erythema extending to right neck- covered with dressing. CARDIOVASCULAR: RRR RESPIRATORY: Clear to auscultation. Breath sounds equal bilaterally. No wheezes , rales, or rhonchi. GASTROINTESTINAL: Abdomen soft, non-tender, nondistended. Normal, active bowel sounds MUSCULOSKELETAL: Extremities without clubbing, cyanosis, or edema. NEURO: Awake and alert. Moving all extremities. 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: Chronic (9) Electrolyte abnormality ICD Code: E87.8 Status: Resolved (10) Severe protein-calorie malnutrition ICD Code: E43 Status: Acute (11) Constipation ICD Code: K59.00 Status: Resolved (12) DNR no code (do not resuscitate) ICD Code: Z66 Status: Acute (13) Palliative care patient ICD Code: Z51.5 Status: Acute (14) Hypomagnesemia ICD Code: E83.42 Status: Resolved (15) Nausea ICD Code: R11.0 Status: Resolved (16) Radiation-induced dermatitis ICD Code: L58.9 Status: Acute (17) 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: Acute (18) Hypotension ICD Code: I95.9 Status: Acute (19) Chest pain ICD Code: R07.9 Status: Acute (20) Infection of PEG site ICD Code: K94.22 Status: Acute Assessment and Plan 1. Squamous Cell Carcinoma of Oropharynx, CT of the face showed very large heterogeneous soft tissue mass along the right side of the face with gross destruction involving most of the right mandible. Metastatic Disease to the Abdomen and Lung/Liver. Biopsy reported Differentiated Squamous cell carcinoma. Continue Radiation therapy s/p Chemotherapy as per customer training specialist and Radiation specialist following. Not possible resection at this time, recommended to wait 12 weeks and obtain PET scan and continue management 2. Stomatitis and Mucositis, Improving with local care. 3. Sepsis one bottle of blood cultures, growing Pseudomonas Stutzeri. Right facial wound and central line suspected source. Central line discontinued. S/p Levofloxacin, Augmentin dc Flagyl and Fluconazole. Dw Attending physician 4. 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 today 135 5. Hypercalcemia of malignancy, status post treatment with Aredia. Resolved 6. Anemia secondary to Chemotherapy, Status post Blood transfusion. Hemoglobin 8.5 7. Severe Protein Calorie Malnutrition, status post PEG placement tube feedings 8. Constipation continue Colace, MiraLAX and Lactulose 9. PEG tube site infection, -wound culture growing Escherichia coli s/p cefepime and Bactrim DVT prophylaxis with Lovenox. Discharge Planning No payor source for chemotherapy and radiation treatment. Per manager case management, patient to remain in-house to complete treatment. Poor prognosis Problem Qualifiers (1) Hypotension: Qualified Code: I95.9 - Hypotension, unspecified hypotension type Vish Allen MD Jun 08, 2016 10:31 palliative care following. 1. Squamous Cell Carcinoma of Oropharynx, CT of the face showed very large heterogeneous soft tissue mass along the right side of the face with gross destruction involving most of the right mandible. Metastatic Disease to the Abdomen and Lung/Liver. 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 continue Radiation therapy and Chemotherapy as per customer training specialist. and Radiation specialist following. Not possible resection at this time, recommended to wait 12 weeks and obtain PET scan and continue management as per Oncology with chemotherapy and Radiation therapy 2. Stomatitis and Mucositis, Improving with local care. 3. Sepsis one bottle of blood cultures, growing Pseudomonas Stutzeri. right facial wound and central line suspected source. Central line discontinued. was on Levofloxacin switched to Augmentin plus Flagyl and continue Fluconazole. Antibiotics handled by Attending physician, do not want ID specialist on the case. 4. 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 today 135 5. Hypercalcemia of malignancy, status post treatment with Aredia. resolved 6. Anemia secondary to Chemotherapy, Status post Blood transfusion. Hemoglobin 8.5 7. Severe Protein Calorie Malnutrition, status post PEG placement tube feedings 8. Constipation continue Colace, MiraLAX and Lactulose 9. Nasal congestion-start oxymetazoline. 10. PEG tube site infection, -wound culture growing Escherichia coli, continue cefepime switch to Bactrim in 1-2 days, continue mupirocin. 11. Sepsis secondary to bloodstream infection-1 blood culture bottle grew Pseudomonas stutzeri. Status post Zosyn. Repeat blood cultures negative, also on Flagyl and oral fluconazole per surgery. No leukocytosis. CBC stable DVT prophylaxis with Lovenox. Code status DNR Discussed with patient and his Brother also nurse Miss Aragon in the room. GI prophylaxis: Lactinex and PPI. Poor Short Term prognosis. Discharge Planning No payor source for chemotherapy and radiation treatment. Per manager case management, patient to remain in-house to complete treatment. Poor prognosis Problem Qualifiers (1) Hypotension: Qualified Code: I95.9 - Hypotension, unspecified hypotension type Vish Allen MD Jun 08, 2016 10:31
[2016-06-08] MEDS: MUPIROCIN 2% OINT 22 GM TUBE TOPICAL SCH ×2 (11:04→22:00)
[2016-06-08] MEDS: MAGNESIUM OXIDE 400 MG TAB GT SCH ×2 (11:04→21:00)
[2016-06-08] MEDS: FLUCONAZOLE 200 MG TAB PO SCH (11:04)
[2016-06-08] MEDS: POTASSIUM PHOSPHATE MONOBASIC 500 MG TAB PO SCH ×2 (11:04→21:00)
[2016-06-08] MEDS: POTASSIUM CHLORIDE 25 MEQ EFFERVESCENT TAB NG SCH ×2 (11:04→21:00)
[2016-06-08] MEDS: LACTOBACILLUS ACIDOPHILUS TAB PO SCH ×3 (11:04→16:50)
[2016-06-08] MEDS: OXYMETAZOLINE HCL 0.05% 15 ML NASAL SPRAY NASAL SCH ×2 (11:05→21:00)
[2016-06-08] MEDS: SODIUM CHLORIDE 0.9% FLUSH 5 ML FLUSH IVF SCH ×2 (11:05→21:00)
[2016-06-08 16:00] VITALS: BP 106/58; PULSE 86; RESP 20; TEMP 95; O2SAT 98
--- NOTE | 2016-06-08 16:29 | HHI.HCPN ---
Reason for visit a. To assist with evaluation and management of symptoms including: jaw/ facial pain and debility. b. To assist medical decision maker(s) with: better understanding of current medical conditions; weighing benefits/burdens of medical treatment options; making medical treatment decisions. . Subjective/Interval History Patient was seen in his room thia morning at 11am. CTA on 06/01/16 indicative of metastatic disease to the sternum, lungs and likely the liver. Patient has completed radiation and had his last round of Carbo and Taxol yesterday. Patient is not a candidate for further aggressive interventions, recommendations have been made for comfort focused care/hospice. Met with Fabian Rowe, Elif Millan, and Nurse Olive Brine Tester (Roberto Bolton) this morning. Palliative care met with patient yesterday to discuss patient goals moving forward. Hospice care center was offered for symptom management and EOL care, patient and brother are agreeable. Hospice consult pending. Afebrile. PEG tube wound growing Escherichia coli. Patient remains on vancomycin and mupirocin ointment. Hycet 3257.5 mg PO is available q3 PRN for pain scale 1-8, sparingly use. Patient has received 2 doses in the past 24 hours. Morphine is also available for pain scale 9-10 but has not been administered for several weeks. Patient denies pain when asked, however patient appears uncomfortable on exam. Family reporting patient was experiencing severe rib pain overnight. Would consider initiating scheduled pain medication ATC at some point in the near future. . Advance Directives Living Will: Never completed Health Care Surrogate: Copy in medical record Durable Power of Ic Designer Standard Cells: Never completed Advance Directive Specifics Date completed: 04/11/2016. . Health Care Surrogate(s): Patient completed [facility] designation naming his brother Vish Jaimes as [facility]. . Documented care wishes: No living will completed. . Significant change in goals: Hospice consult pending . Objective Vital Signs Date Time Temp Pulse Resp B/P Pulse Ox O2 Delivery O2 Flow Rate FiO2 06/08/16 09:30 97.0 86 18 97/59 97 06/08/16 04:00 97.8 84 17 98/64 99 06/08/16 00:00 97.1 84 18 91/60 97 06/07/16 20:00 96.5 91 18 94/59 96 . Physical Exam CONSTITUTIONAL/GENERAL: This is an cachectic male in no acute distress. TUBES/LINES/DRAINS: PIV's. SKIN: Skin temperature appropriate. Not diaphoretic. Radiation andrade to bilateral anterior neck. HEAD: Atraumatic. Normocephalic. EYES: Pupils equal and round and reactive. No injection or drainage. ENT: Hearing grossly normal. Large mass to right side of mouth/jaw with dressing in place. CARDIOVASCULAR: Regular rate and rhythm. Peripheral pulses symmetric. RESPIRATORY/CHEST: Symmetric, unlabored respirations. Clear to auscultation. Breath sounds equal bilaterally. No wheezes, rales, or rhonchi. GASTROINTESTINAL: Abdomen soft, non-tender, nondistended. PEG in place. No guarding. Bowel sounds present. MUSCULOSKELETAL: Extremities without clubbing, cyanosis, or edema. significant muscle wasting noted. NEUROLOGICAL: Somnolen.t Attempting to communicate by hand gestures and nodding head to yes/no questions. PSYCHIATRIC: Calm. . Diagnostic Tests Result Diagram: 06/05/16 0620 Procedures * 04/03/16 - PEG placement * 04/03/16 - Biopsy of facial mass . 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 (2) Pain 0-10 Scale: 0 Comment: secondary to burden of disease. Pertinent Non-Medical Issues Psychosocial: Spiritual: Legal: Ethical issues impacting care: Important Contacts Brother Vish Nunn . . Prognosis Mr. Ribera is a 35 y/o male with no significant prior medical history who was admitted on 04/02/16 for treatment of facial mass. 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 Not a surgical candidate. Appears he has limited treatment options secondary to clinical condition, palliative radiation being considered. Patient's prognosis is very poor secondary to advanced cancer, profound physical deconditioning, and malnutrition. Patient is at high risk for further decline, additional complications and . . Code Status: No Code Plan * CODE STATUS: NO CODE. * HEALTHCARE DECISION-MAKING: Patient participating in medical decision-making. HCS completed, patient designated his brother Vish Kadir Nunn as healthcare surrogate. * GOALS OF CARE: Considering hospice for symptom management and EOL care. * SYMPTOMS: ==Oral pain, secondary to burden of disease. Lortab and Morphine available as needed-would recommend initiating scheduled pain medication ATC in the near future. ==Debility: secondary to burden of disease and malnutrition. PT following. * CTA on 06/01/16 indicative of metastatic disease to the sternum, lungs and likely the liver. Patient has completed radiation and chemotherapy He is not a candidate for further aggressive treatment and hospice has been recommended. * Hospice consult pending * Ongoing emotional support and active listening provided. * Palliative care will continue to f/u with patient and family as needed for further clarification of goals and for emotional support. . Attestation To help prompt me to consider important information that might be impacting today's encounter and assessment, information from prior notes written by myself or my colleagues may have been "brought forward" into today's note. My signature on this note, however, is an attestation that I personally performed the exam, history, and/or decision-making noted today, and, unless otherwise indicated, the interactions with patient, family, and staff as well as the review of records all occurred today. I also attest that the listed assessment and stated plan reflect my best clinical judgment today based on the combination of historical information, prior notes, and today's exam/ interactions. When time spent is documented, it refers only to time spent today by the signer, or if indicated, combined time spent today by collaborating physician/nurse practitioner. . Dian Marcus Jun 08, 2016 16:29
[2016-06-08] MEDS: ACETAMINOPHEN 325MG/HYDROcodone 7.5MG/15ML UDC PO PRN ×2 (16:49→22:32)
[2016-06-08] MEDS: ENOXAPARIN SODIUM 30 MG/0.3 ML SYRINGE SQ SCH (16:49)
[2016-06-08 20:00] VITALS: BP 95/59; PULSE 88; RESP 16; TEMP 95.9; O2SAT 96
[2016-06-09] VITALS: BP 115/62; PULSE 94; RESP 17; TEMP 95.8; O2SAT 97
[2016-06-09 04:00] VITALS: BP 105/58; PULSE 95; RESP 15; TEMP 96.9; O2SAT 97
[2016-06-09] MEDS: ACETAMINOPHEN 325MG/HYDROcodone 7.5MG/15ML UDC PO PRN ×3 (05:39→17:51)
[2016-06-09] MEDS: METOCLOPRAMIDE HCL SYRUP 10 MG/10 ML UDC G-TUBE SCH ×3 (05:40→16:57)
[2016-06-09] MEDS: FREE WATER G-TUBE SCH ×4 (05:40→16:57)
[2016-06-09 08:00] VITALS: BP 116/56; PULSE 108; RESP 22; TEMP 98.8; O2SAT 96
[2016-06-09] MEDS: OXYMETAZOLINE HCL 0.05% 15 ML NASAL SPRAY NASAL SCH (09:00)
[2016-06-09] MEDS: SILVER SULFADIAZINE 1% CR 50 GM JAR TOPICAL SCH (09:00)
[2016-06-09] MEDS: POTASSIUM CHLORIDE 25 MEQ EFFERVESCENT TAB NG SCH (10:23)
[2016-06-09] MEDS: LACTOBACILLUS ACIDOPHILUS TAB PO SCH ×3 (10:24→16:57)
[2016-06-09] MEDS: POTASSIUM PHOSPHATE MONOBASIC 500 MG TAB PO SCH (10:24)
[2016-06-09] MEDS: MAGNESIUM OXIDE 400 MG TAB GT SCH (10:24)
[2016-06-09] MEDS: SODIUM CHLORIDE 0.9% FLUSH 5 ML FLUSH IVF SCH (10:24)
[2016-06-09] MEDS: MUPIROCIN 2% OINT 22 GM TUBE TOPICAL SCH (10:25)
--- NOTE | 2016-06-09 11:15 | HHI.PR ---
Subjective Remarks Follow-up facial cancer. Patient has no complaints tolerating tube feeding, stooling and voiding. Discussed with nursing staff, patient will be discharged to hospice care center. Objective Vitals Vital Signs Date Time Temp Pulse Resp B/P Pulse Ox O2 Delivery O2 Flow Rate FiO2 06/09/16 08:00 98.8 108 22 116/56 96 06/09/16 06:41 19 06/09/16 04:00 96.9 95 15 105/58 97 06/09/16 00:00 95.8 94 17 115/62 97 06/08/16 20:00 95.9 88 16 95/59 96 06/08/16 16:00 95.0 86 20 106/58 98 I/O 06/08/16 06/08/16 06/08/16 06/09/16 06/09/16 06/09/16 07:00 15:00 23:00 07:00 15:00 23:00 Intake Total 0 ml 1128 ml Balance 0 ml 1128 ml Intake Oral 0 ml IV Total 1128 ml # Voids 2 2 1 1 Result Diagram: 06/05/16 0620 Imaging Last Impressions Chest X-Ray 06/03/16 0000 Signed Impressions: Service Date/Time: Friday, June 03, 2016 13:55 - CONCLUSION: Abnormal chest x-ray as described above. There appears to be minimal improvement from the CT scan of 05/22/2016. Cornelio Negrete MD FACR CT Angiography 06/01/16 0000 Signed Impressions: Service Date/Time: May 16:48 - CONCLUSION: 1. No evidence of pulmonary embolus. 2. Numerous bilateral pulmonary nodules indicating pulmonary metastatic disease. 3. Destructive lucent bone lesion in the sternum indicating metastatic disease. 4. 2 cm nonspecific hypodense lesion in the left lobe of the liver. 5. Mildly enlarged hilar lymph nodes bilaterally. Prabhu Jang MD Liver Ultrasound 04/12/16 0000 Signed Impressions: Service Date/Time: Tuesday, April 12, 2016 22:29 - CONCLUSION: 1. Solid indeterminate mass in the left lobe of the liver as well as a tiny cyst. An MRI of the abdomen with without contrast may be helpful for further assessment if felt clinically warranted. The possibility of a metastatic lesion is not excluded. 2. Cholelithiasis. 3. Bilateral pleural effusions are suspected sonographically. Chau Ward MD Chest CT 04/11/16 Signed Impressions: Service Date/Time: Monday, April 11, 2016 14:09 - CONCLUSION: 1. Multiple small scattered noncalcified pulmonary nodules which are nonspecific but are of concern for early metastatic disease. 2. The known large tumor mass in the right side of the face and neck is partially visualized with destructive change involving the right side of the mandible. This extends into the right supraclavicular region. Please see soft tissue neck CT for further details. 3. Low attenuation lesion in the left lobe of the liver again noted. Holland Villegas MD Abdomen/Pelvis CT 04/11/16 Signed Impressions: Service Date/Time: Monday, April 11, 2016 14:09 - CONCLUSION: 1. 1.4 cm low-attenuation lesion left lobe of the liver of concern for a metastasis. There is a smaller more cystic appearing structure in the right lobe. 2. The remainder of the study is unremarkable except for a PEG tube in the stomach. Holland Villegas MD Upper Extremity Ultrasound 04/08/16 Signed Impressions: Service Date/Time: Friday, April 08, 2016 13:04 - CONCLUSION: No thrombus. Deshawn Michele MD Neck CT 04/02/16 Signed Impressions: Service Date/Time: Saturday, April 02, 2016 11:54 - CONCLUSION: Very large heterogeneous soft tissue mass along the right side of the face with gross destruction involving most of the right mandible. The mass contains amorphous calcifications and appears to involve the right sternocleidomastoid muscle. The mass appears to extend into the oral cavity with diffuse enlargement of the right tonsillar pillar. Neoplastic disease in the primary consideration. Niall Corrales MD Multiplanar Reconstruction 04/02/16 Signed Impressions: Service Date/Time: Saturday, April 02, 2016 11:54 - CONCLUSION: 3-D reconstructive images demonstrating destruction involving most the right side of the mandible. Niall Corrales MD Head CT 04/02/16 0000 Signed Impressions: Service Date/Time: Saturday, April 02, 2016 11:54 - CONCLUSION: 1. Unremarkable CT scan of the brain 2. Large abnormal soft tissue mass with calcifications along the right side of the face. Niall Corrales MD Objective Remarks GENERAL: in no acute distress HEENT; swollen right face with erythema extending to right neck- covered with dressing. CARDIOVASCULAR: RRR RESPIRATORY: Clear to auscultation. Breath sounds equal bilaterally. No wheezes , rales, or rhonchi. GASTROINTESTINAL: Abdomen soft, non-tender, nondistended. Normal, active bowel sounds MUSCULOSKELETAL: Extremities without clubbing, cyanosis, or edema. NEURO: Awake and alert. Moving all extremities. 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: Chronic (9) Electrolyte abnormality ICD Code: E87.8 Status: Resolved (10) Severe protein-calorie malnutrition ICD Code: E43 Status: Acute (11) Constipation ICD Code: K59.00 Status: Resolved (12) DNR no code (do not resuscitate) ICD Code: Z66 Status: Acute (13) Palliative care patient ICD Code: Z51.5 Status: Acute (14) Hypomagnesemia ICD Code: E83.42 Status: Resolved (15) Nausea ICD Code: R11.0 Status: Resolved (16) Radiation-induced dermatitis ICD Code: L58.9 Status: Acute (17) 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: Acute (18) Hypotension ICD Code: I95.9 Status: Acute (19) Chest pain ICD Code: R07.9 Status: Acute (20) Infection of PEG site ICD Code: K94.22 Status: Acute Assessment and Plan 1. Squamous Cell Carcinoma of Oropharynx, CT of the face showed very large heterogeneous soft tissue mass along the right side of the face with gross destruction involving most of the right mandible. Metastatic Disease to the Abdomen and Lung/Liver. Biopsy reported Differentiated Squamous cell carcinoma. Status post Radiation therapy and Chemotherapy. Not a candidate for further aggressive treatment and has opted for hospice care 2. Stomatitis and Mucositis, Improving with local care. 3. Sepsis one bottle of blood cultures, growing Pseudomonas Stutzeri. Right facial wound and central line suspected source. Central line discontinued. S/p Levofloxacin, Augmentin dc Flagyl and Fluconazole. 4. 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 Improved 135 5. Hypercalcemia of malignancy, status post treatment with Aredia. Resolved 6. Anemia secondary to Chemotherapy, Status post Blood transfusion. Hemoglobin 8.5 7. Severe Protein Calorie Malnutrition, status post PEG placement tube feedings 8. Constipation continue Colace, MiraLAX and Lactulose 9. PEG tube site infection, -wound culture growing Escherichia coli s/p cefepime and Bactrim DVT prophylaxis with Lovenox. Discharge Planning Poor prognosis. Patient will be discharged to hospice care center Problem Qualifiers (1) Hypotension: Qualified Code: I95.9 - Hypotension, unspecified hypotension type Vish Allen MD Jun 09, 2016 11:15 Vish Allen MD Jun 09, 2016 11:15
[2016-06-09 12:00] VITALS: BP 109/55; PULSE 111; RESP 20; TEMP 97.9; O2SAT 96
[2016-06-09] MEDS: ENOXAPARIN SODIUM 30 MG/0.3 ML SYRINGE SQ SCH (14:30)
--- NOTE | 2016-06-09 15:26 | HHI.HCPN ---
Reason for visit a. To assist with evaluation and management of symptoms including: jaw/ facial pain and debility. b. To assist medical decision maker(s) with: better understanding of current medical conditions; weighing benefits/burdens of medical treatment options; making medical treatment decisions. . Subjective/Interval History Patient was seen in his room. Brother at bedside. Also present patient's nurse , Roberto Bolton (control panel operator crude unit), Nadine Ngo (hospice admission nurse). Used [employer] interpretation service ([employer]) on computer for [place]an/ Kinyarwanda interpretation. Patient is awake and alert. He denies pain during my visit. Nurse indicates the patient has some pain in his face, sternum and right upper quadrant at times. Right facial dressing in place with drainage noted, difficulty managing secretions. Patient is nonverbal. He appears to understand questions with interpretation service uses body language, hand signals and nodding to answer questions. Uses liquid hydrocodone/acetaminophen 7.5/325mg every 3 hours PRN for pain control, he has had 4 doses in the past 24 hours. Morphine is also available for pain though has not been administered for several weeks. Medical update provided. Explained patient will complete his last dose of palliative radiation later today. Reviewed cancer diagnosis, sites of metastasis and advised that there per radiation oncology, medical oncology and general surgery are no additional chemotherapy, radiation therapy or surgical options available for treatment of cancer. Patient and his brother understand the current status of his cancer, poor prognosis, that this is a terminal condition and that all of the medical team members are recommending comfort focused care with hospice support. Reviewed hospice services. Patient and his brother verbalizes understanding and desire transition to comfort focused care with hospice support. Patient will be transferred later today to the hospice care center in [place] with hopes that he will be able to return to [facility] to in the presence of his family. Patient and his brother understand that his condition could worsen before we have the opportunity to move him to [facility]. They understand hospice services, plan for symptom management and care that will be provided in the care center setting. Tube feedings will be continued as they have been in the hospital. At the end of the conversation the patient smiles, points to the carlita and holds out hands indicating this is all in God's hands. Orders for hospice will be provided by Dr. Torres. Afebrile. Tachycardic. Blood pressure stable. Bowel and bladder function adequate. No new labs. Last Albumin on 06/05/16 1.8. 06/01/16 Abdominal wound culture PEG tube + E. Coli, MDRO. No new imaging. . Family/friend interactions 11:15am: [employer] Interpretations Service (Roberto) provided interpretation for meeting. Multidisciplinary team meeting with tx, Roberto Bolton (regional operations manager), Nadine Ngo (hospice admission nurse), Dr. Beaulieu (radiation oncology), Sirisha MARQUEZ (medical oncology), Ryland (bedside RN) and Dr. Torres for a portion of the meeting. After medical update from palliative care and Dr. Beaulieu, review of cancer diagnosis, status of disease and no additional treatment options, prognosis and recommendation for transition to comfort measure with hospice support, brother is comfortable with plan for transition to hospice with care center placement. Plan for transfer to [facility] later today with continued tube feedings in hopes patient will be able to return to [facility] before his condition worsens as this is where the patient prefers to , so that he can be near his family. See interval not for conversation with pt. . Advance Directives Living Will: Never completed Health Care Surrogate: Copy in medical record Durable Power of Junior Linux Administrator: Never completed Advance Directive Specifics Date completed: 04/11/2016. . Health Care Surrogate(s): Patient completed HCS designation naming his brother Vish Jaimes as HCS. . Documented care wishes: No living will completed. . Significant change in goals: NO CODE. Hospice consents signed. Plan for DC to hospice care center ([facility]) later today after final XRT treatment. . Objective Vital Signs Date Time Temp Pulse Resp B/P Pulse Ox O2 Delivery O2 Flow Rate FiO2 06/09/16 12:00 97.9 111 20 109/55 96 06/09/16 08:00 98.8 108 22 116/56 96 06/09/16 06:41 19 06/09/16 04:00 96.9 95 15 105/58 97 06/09/16 00:00 95.8 94 17 115/62 97 06/08/16 20:00 95.9 88 16 95/59 96 06/08/16 16:00 95.0 86 20 106/58 98 Intake & Output 06/09/16 06/09/16 07:00 19:00 Intake Total 1128 ml Balance 1128 ml IV Total 1128 ml # Voids 2 Physical Exam CONSTITUTIONAL/GENERAL: This is an cachectic male in no acute distress. TUBES/LINES/DRAINS: PIV's, PEG tube. SKIN: Skin temperature appropriate. Not diaphoretic. Radiation andrade to bilateral anterior neck. EYES: Pupils equal and round and reactive. No injection or drainage. ENT: Hearing grossly normal. Large mass to right side of mouth/jaw with dressing in place. CARDIOVASCULAR: Tachycardic. Peripheral pulses symmetric. RESPIRATORY/CHEST: Symmetric, unlabored respirations. Clear to auscultation. Breath sounds equal bilaterally. No wheezes, rales, or rhonchi. GASTROINTESTINAL: Abdomen soft, non-tender, nondistended. PEG in place. No guarding. Bowel sounds present. MUSCULOSKELETAL: Extremities without clubbing, cyanosis, or edema. significant muscle wasting noted. NEUROLOGICAL: Awake and alert.Nonverbal. Attempting to communicate by hand gestures and nodding head to yes/no questions. PSYCHIATRIC: Calm. . Diagnostic Tests Result Diagram: 06/05/16 0620 Imaging Last Impressions Chest X-Ray 06/03/16 0000 Signed Impressions: Service Date/Time: Friday, June 03, 2016 13:55 - CONCLUSION: Abnormal chest x-ray as described above. There appears to be minimal improvement from the CT scan of 05/22/2016. Cornelio Negrete MD FACR CT Angiography 06/01/16 0000 Signed Impressions: Service Date/Time: May 16:48 - CONCLUSION: 1. No evidence of pulmonary embolus. 2. Numerous bilateral pulmonary nodules indicating pulmonary metastatic disease. 3. Destructive lucent bone lesion in the sternum indicating metastatic disease. 4. 2 cm nonspecific hypodense lesion in the left lobe of the liver. 5. Mildly enlarged hilar lymph nodes bilaterally. Prabhu Jang MD Liver Ultrasound 04/12/16 0000 Signed Impressions: Service Date/Time: Tuesday, April 12, 2016 22:29 - CONCLUSION: 1. Solid indeterminate mass in the left lobe of the liver as well as a tiny cyst. An MRI of the abdomen with without contrast may be helpful for further assessment if felt clinically warranted. The possibility of a metastatic lesion is not excluded. 2. Cholelithiasis. 3. Bilateral pleural effusions are suspected sonographically. Chau Ward MD Chest CT 04/11/16 Signed Impressions: Service Date/Time: Monday, April 11, 2016 14:09 - CONCLUSION: 1. Multiple small scattered noncalcified pulmonary nodules which are nonspecific but are of concern for early metastatic disease. 2. The known large tumor mass in the right side of the face and neck is partially visualized with destructive change involving the right side of the mandible. This extends into the right supraclavicular region. Please see soft tissue neck CT for further details. 3. Low attenuation lesion in the left lobe of the liver again noted. Holland Villegas MD Abdomen/Pelvis CT 04/11/16 Signed Impressions: Service Date/Time: Monday, April 11, 2016 14:09 - CONCLUSION: 1. 1.4 cm low-attenuation lesion left lobe of the liver of concern for a metastasis. There is a smaller more cystic appearing structure in the right lobe. 2. The remainder of the study is unremarkable except for a PEG tube in the stomach. Holland Villegas MD Upper Extremity Ultrasound 04/08/16 Signed Impressions: Service Date/Time: Friday, April 08, 2016 13:04 - CONCLUSION: No thrombus. Deshawn Michele MD Neck CT 04/02/16 0000 Signed Impressions: Service Date/Time: Saturday, April 02, 2016 11:54 - CONCLUSION: Very large heterogeneous soft tissue mass along the right side of the face with gross destruction involving most of the right mandible. The mass contains amorphous calcifications and appears to involve the right sternocleidomastoid muscle. The mass appears to extend into the oral cavity with diffuse enlargement of the right tonsillar pillar. Neoplastic disease in the primary consideration. Niall Corrales MD Multiplanar Reconstruction 04/02/16 0000 Signed Impressions: Service Date/Time: Saturday, April 02, 2016 11:54 - CONCLUSION: 3-D reconstructive images demonstrating destruction involving most the right side of the mandible. Niall Corrales MD Head CT 04/02/16 0000 Signed Impressions: Service Date/Time: Saturday, April 02, 2016 11:54 - CONCLUSION: 1. Unremarkable CT scan of the brain 2. Large abnormal soft tissue mass with calcifications along the right side of the face. Niall Corrales MD . Procedures * 04/03/16 - PEG placement * 04/03/16 - Biopsy of facial mass . 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 (2) Pain 0-10 Scale: 6 Comment: secondary to burden of disease. Pertinent Non-Medical Issues Psychosocial: Spiritual: Legal: Ethical issues impacting care: Important Contacts Brother Vish Nunn . . Prognosis Mr. Ribera is a 35 y/o male with no significant prior medical history who was admitted on 04/02/16 for treatment of facial mass. 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 Not a surgical candidate. Appears he has limited treatment options secondary to clinical condition, palliative radiation being considered. Patient's prognosis is very poor secondary to advanced cancer, profound physical deconditioning, and malnutrition. Patient is at high risk for further decline, additional complications and . . Code Status: No Code Plan * CODE STATUS: NO CODE. * HEALTHCARE DECISION-MAKING: Patient participating in medical decision-making. HCS completed, patient designated his brother Vish Nunn as healthcare surrogate. * GOALS OF CARE: Multidisciplinary team meeting with brother and then with patient. Symptom management/improve quality of live, transition to comfort focused care with hospice support. Plan for transfer to Hospice care center when arrangements made. Patient and his brother still hope patient will be able to return to [facility] prior to his . They both understand that should his condition worsen this may not be possible. Further comfort orders per hospice attending. * SYMPTOMS: == Oral pain, secondary to burden of disease. Lortab and Morphine available as needed. Further orders per Hospice attending. == Debility: secondary to burden of disease and malnutrition. * CTA on 06/01/16 indicative of metastatic disease to the sternum, lungs and likely the liver. Patient will complete last radiation treatment 06/09/16. He is not a candidate for further aggressive treatment (chemo, radiation or surgery). All medical team members have recommended hospice support and comfort focused care. * Palliative care will continue to follow as needed. . Time Spent Total Floor Time (mins): 135 Face to Face Time (mins): 100 >50% Counseling/Coord of Care: Yes Attestation To help prompt me to consider important information that might be impacting today's encounter and assessment, information from prior notes written by myself or my colleagues may have been "brought forward" into today's note. My signature on this note, however, is an attestation that I personally performed the exam, history, and/or decision-making noted today, and, unless otherwise indicated, the interactions with patient, family, and staff as well as the review of records all occurred today. I also attest that the listed assessment and stated plan reflect my best clinical judgment today based on the combination of historical information, prior notes, and today's exam/ interactions. When time spent is documented, it refers only to time spent today by the signer, or if indicated, combined time spent today by collaborating physician/nurse practitioner. . ARYAN CHEN Jun 09, 2016 15:26
--- NOTE | 2016-07-18 14:43 | HHI.DS ---
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 PE at Discharge Alert and awake Cardio: RRR Resp: CTAB Abd: soft; PEG in place facial dressing in place, clean and dry. 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 He was brought to the [facility] from [facility] for treatment of his cancer. A PEG tube was placed for feedings. He was started on chemotherapy and radiation. The patient had a prolonged hospitalization due to the nature of his disease. The patient started to decline. Scans revealed metastatic disease. Palliative Care met with the brother and he decided on comfort measures. Arrangements were made for admission to the [facility] in [place]. From there arrangements were made to fly the patient back to [facility] where the patient was able to be with his family at the end of his life. Pt Condition on Discharge: Fair Discharge Disposition: Hospice/Med Facility Discharge Instructions DIET: Follow Instructions for: On Tube Feeding Activities you can perform: See Additionl Instruction Other Activity Instructions: UP WITH ASSISTANCE Brittnee Stapleton July 18, 2016 14:43
== END 2016-06-09 18:08 | disposition hospice, inpatient (51) | DRG 146 ==
LOC: HOCA 00:51 → N06B 04-04 02:20 → HOCA 04-04 14:11
PROVIDERS: ADMIT Surgery Trauma Surgery; ATTEND Surgery Trauma Surgery
PROC: 30233N1 Transfusion of Nonautologous Red Blood Cells into Peripheral Vein, Percutaneous Approach (ICD-10-PCS; 2016-04-03)
PROC: 0CDXXZ1 Extraction of Lower Tooth, Multiple, External Approach (ICD-10-PCS; 2016-04-03)
PROC: 0CB Mouth and Throat, Excision (ICD-10-PCS; 2016-04-03)
PROC: 0DH63UZ Insertion of Feeding Device into Stomach, Percutaneous Approach (ICD-10-PCS; principal; 2016-04-03 14:27)
PROC: 0DJ08ZZ Inspection of Upper Intestinal Tract, Via Natural or Artificial Opening Endoscopic (ICD-10-PCS; 2016-04-03 14:27)
PROC: 02HV33Z Insertion of Infusion Device into Superior Vena Cava, Percutaneous Approach (ICD-10-PCS; 2016-04-03 14:27)
PROC: B518ZZA Fluoroscopy of Superior Vena Cava, Guidance (ICD-10-PCS; 2016-04-03 14:27)
PROC: DWY17ZZ Contact Radiation of Head and Neck (ICD-10-PCS; 2016-04-12)
PROC: 3E03305 Introduction of Other Antineoplastic into Peripheral Vein, Percutaneous Approach (ICD-10-PCS; 2016-04-13)
DX: C06.0 Malignant neoplasm of cheek mucosa (principal); E43 Unspecified severe protein-calorie malnutrition; A41.9 Sepsis, unspecified organism; N17.9 Acute kidney failure, unspecified; C49.0 Malignant neoplasm of connective and soft tissue of head, face and neck; C78.00 Secondary malignant neoplasm of unspecified lung; E83.42 Hypomagnesemia; C78.7 Secondary malignant neoplasm of liver and intrahepatic bile duct; C79.51 Secondary malignant neoplasm of bone; E22.2 Syndrome of inappropriate secretion of antidiuretic hormone; Z68.1 Body mass index [BMI] 19.9 or less, adult; K94.22 Gastrostomy infection; T80.211A Bloodstream infection due to central venous catheter, initial encounter; Z51.5 Encounter for palliative care; Z66 Do not resuscitate; E83.52 Hypercalcemia; C10.9 Malignant neoplasm of oropharynx, unspecified; D64.81 Anemia due to antineoplastic chemotherapy; R62.7 Adult failure to thrive; E86.0 Dehydration; E87.6 Hypokalemia; K59.00 Constipation, unspecified; R19.7 Diarrhea, unspecified; K64.9 Unspecified hemorrhoids; E83.39 Other disorders of phosphorus metabolism; K12.1 Other forms of stomatitis; K12.30 Oral mucositis (ulcerative), unspecified; H66.90 Otitis media, unspecified, unspecified ear; L59.8 Other specified disorders of the skin and subcutaneous tissue related to radiation; R11.0 Nausea; T45.1X5A Adverse effect of antineoplastic and immunosuppressive drugs, initial encounter; Y84.2 Radiological procedure and radiotherapy as the cause of abnormal reaction of the patient, or of later complication, without mention of misadventure at the time of the procedure; Y84.8 Other medical procedures as the cause of abnormal reaction of the patient, or of later complication, without mention of misadventure at the time of the procedure
CPT/HCPCS: 36430; 70450; 70490; 71010; 71020; 71260; 71275; 74177; 76377; 76705; 76937; 77001; 77014; 77263; 77300; 77301; 77334; 77336; 77338; 77386; 77387; 77417; 77427; 80048; 80053; 80202; 81001; 82040; 82550; 82565; 82948; 83735; 83930; 83935; 84100; 84132; 84134; 84155; 84443; 84478; 84484; 85007; 85014; 85018; 85025; 85027; 85610; 86703; 86850; 86900; 86901; 86920; 87040; 87070; 87077; 87086; 87186; 87205; 88305; 88331; 88341; 88342; 93005; 93971; 94150; 99223; J0295; J0690; J0692; J1100; J1200; J1626; J1644; J1650; J1956; J1980; J2270; J2370; J2405; J2430; J2543; J3010; J3370; J3475; J3480; J7030; J7040; J7050; J7120; J9045; J9267; P9016; Q9967